=== PATIENT | female | born 1960 | race Caucasian/White ===

== ENCOUNTER 2020-08-06 11:04 | Inpatient (IN) | payer MEDICARE, MEDICAID, SELFPAY ==
[2020-08-06] VITALS (9 sets, daily range): BP systolic 110–157; BP diastolic 49–88; PULSE 70–81; RESP 18–26; TEMP 36.3–36.9; O2SAT 90–95; BMI 45.5
--- NOTE | 2020-08-06 | ECG_ITS ---
Test Reason : DYSPNEA Blood Pressure : / mmHG Vent. Rate : 070 BPM Atrial Rate : 070 BPM P-R Int : 168 ms QRS Dur : 066 ms QT Int : 358 ms P-R-T Axes : 028 007 025 degrees QTc Int : 386 ms Normal sinus rhythm Low voltage QRS Nonspecific ST and T wave abnormality Abnormal ECG When compared with ECG of 10-JAN-2019 15:16, Nonspecific T wave abnormality now evident in Anterolateral leads Referred By: Generic ED Physician Electronically Signed By:LEXA TAVAREZ MD
--- NOTE | 2020-08-06 11:29 | ED.SOB ---
HPI - SOB/Dyspnea General Chief Complaint: Dyspnea Stated Complaint: SOB, FLUID RETENTION,DONNA EYE INFECTION Time Seen by Provider: 08/06/20 11:29 History of Present Illness HPI Narrative: Patient has had eye swelling and itching for 3 months, now with shortness of breath for 1 week. Patient is not on oxygen at home. Patients helps her at home no illness in the house MD elicited complaint: shortness of breath Pertinent past history: congestive heart failure Onset (ago): week(s) Timing: constant Severity: moderate Related Data Previous Rx's Medication Instructions Recorded levothyroxine 175 mcg tablet 175 mcg PO DAILY 90 Days #90 tab 07/13/20 rosuvastatin 40 mg tablet 40 mg PO DAILY 90 Days #90 tab 07/13/20 Allergies Allergy/AdvReac Type Severity Reaction Status Date / Time lisinopril [LISINOPRIL] AdvReac Unknown ITCHY EYES Unverified 06/21/20 17:19 Review of Systems Constitutional: Constitutional: Reports no additional constitutional complaints Eyes: Comments: swelling, eye drainage and itching ENT: Denies dizziness Cardiovascular: Cardiovascular: Reports no additional cardiovascular complaints Respiratory: Respiratory: Reports as per HPI Gastrointestinal: Gastrointestinal: Reports no additional gastrointestinal complaints Genitourinary: Genitourinary: Reports no additional female genitourinary complaints Musculoskeletal: Musculoskeletal: Reports no additional musculoskeletal complaints Integumentary/Breasts: Skin/Breast: Denies rash Neurologic: Reports system reviewed and no additional complaints, except as documented, Denies dizziness and Denies Sensory deficit (Neuro) Psychiatric: Psychiatric: Denies anxiety [facility] Past Medical History Medical History (Updated 08/06/20 @ 12:43 by Taurus Gomez MD) Abnormal dexamethasone suppression test Autoimmune thyroiditis BMI 45.0-49.9, adult CHF (congestive heart failure) Diabetes mellitus with hyperglycemia Dyslipidemia, goal LDL below 100 Essential hypertension Kidney disease Morbid obesity due to excess calories Other specified hypothyroidism Syncope Type 2 diabetes mellitus with diabetic nephropathy Surgical History (Updated 07/17/20 @ 08:06 by LUIS Brown) History of removal of calculus of renal pelvis through percutaneous nephrostomy Family History Family History (Updated 07/30/20 @ 15:19 by Rosario Soto LPN) Family/Other Diabetes Social History Social History (Updated 07/30/20 @ 15:20 by Rosario Soto LPN) Smoking Status: Never smoker Advance Directives: No Advance Directives Information Provided: Yes Physical Exam Vital Signs: Vital Signs: Vital Signs Temp Pulse Resp BP Pulse Ox 08/06/20 12:04 145/61 H 08/06/20 11:55 70 134/71 08/06/20 11:14 98.1 F 72 26 H 157/49 H 90 L Body Mass Index 45.5 Const: Other: morbidly obese short of breath Nutritional Appearance: obese Orientation/consciousness: oriented to person and patient oriented x3 Limitations: no limitations HENMT: Head: Yes normal to inspection Ears: external ears normal General nose exam: Normal external nose present Mouth: Normal oral and palatal mucosa present and oropharynx normal Throat: Yes posterior oropharynx normal Eyes: Other: bilateral periorbital edema with drainage Neck: Other: supple Neck: Yes normal visual inspection Chest: Chest palpation & inspection: normal inspection of the chest Resp: Other: patient working to breath distant secondary to obesity Cardio: Jugular venous distension: no JVD Rate: regular rate Rhythm: regular rhythm Heart sounds: S1 normal heart sound present and S2 normal heart sound present GI: Inspection: Yes normal to inspection Palpation (GI): Soft to palpation, nontender and No hepatosplenomegaly present Auscultation: normal bowel sounds : General: Yes no CVA tenderness Back/Spine/Pelvis: Back: no CVA tenderness Skin: General skin exam: no rashes or lesions noted Neuro: General: oriented to person and patient oriented x3 Cranial nerves: Yes CN's II-XII intact bilaterally Motor exam (neuro): 5/5 motor strength present throughout Sensory Exam: No Sensory deficit (Neuro) Extrem: Other: patient with anasarca up abdomen and both legs 3+ Psych: Appearance: grossly normal Course Course Course Narrative: discussed with Gale Orellana MDM - SOB/Dyspnea MDM Narrative Medical decision making narrative: patient with anasarca and allergic conjunctivitis will admit Lab Data Result diagrams: 08/06/20 11:49 08/06/20 11:49 Labs: Lab Results 08/06/20 08/06/20 08/06/20 Range/Units 11:49 11:49 11:49 WBC 8.5 (4.8-10.8) X10*3/uL RBC 4.52 (4.20-5.50) X10*6/uL Hgb 10.6 L (12.0-16.0) g/dl Hct 36.0 L (37-47) % MCV 79.6 L (80-98) fL MCH 23.5 L (27.0-33.0) pg MCHC 29.4 L (31.0-35.0) g/dl RDW 15.9 (11.0-16.0) % Plt Count 280 (160-400) X10*3/uL MPV 10.4 (9.4-12.3) fL Immature Gran % (Auto) 0.2 (0.0-0.4) % Neut % (Auto) 77.9 H (45-73) % Lymph % (Auto) 13.8 L (20-40) % [place] % (Auto) 6.1 (2-11) % Eos % (Auto) 0.9 (0-4) % Baso % (Auto) 1.1 (0-2) % Lymph # (Auto) 1.2 (1.2-4.9) X10*3/uL [place] # (Auto) 0.5 (0.1-1.2) X10*3/uL Eos # (Auto) 0.1 (0.0-0.4) X10*3/uL Baso # (Auto) 0.1 (0.0-0.2) X10*3/uL Abs Immat Gran (auto) 0.02 (0.00-0.03) X10*3/uL Absolute Neuts (auto) 6.6 (2.0-8.3) X10*3/uL Absolute Nucleated RBC 0.000 (0.0-0.012) X10*3/uL Nucleated RBC % (auto) 0.0 (0.0-0.2) /100WBC Sodium 144 (135-145) mmol/L Potassium 4.2 (3.3-5.1) mmol/l Chloride 109 H (96-108) mmol/L Carbon Dioxide 22 (22-29) mmol/L Anion Gap 17 (12-20) BUN 27 H (9-16) mg/dL Creatinine 1.44 H (0.5-1.4) mg/dL Estim Creat Clear Calc 49.3 Estimated GFR 37 Random Glucose 114 (60-115) mg/dL Calcium 8.4 (8.4-10.2) mg/dL Troponin I High Sens 11.9 (<3.5-17.0) ng/L B-Natriuretic Peptide 518 H (<100) pg/mL Critical Care Time Critical Care Time Critical Care Time: Yes Total Critical Care Time: 35 Attestation: I spent 35 minutes of critical care, with interventions, assessments, speaking to patient, consultants, and family. Discharge Plan Discharge Clinical Impression: Anasarca Congestive heart failure Qualifiers: Heart failure type: biventricular Qualified Code(s): I50.82 - Biventricular heart failure Patient Disposition: Admitted As Inpatient
--- NOTE | 2020-08-06 11:34 | XR_ITS ---
EXAMINATION: XR CHEST CLINICAL INFORMATION: Shortness of breath. COMPARISON: Chest 01/31/2018. TECHNIQUE: Frontal view of the chest was obtained. FINDINGS: The lungs are hypoexpanded with cardiomegaly and increased pulmonary vascularity suggestive of CHF. There is moderate opacity in the right lung base likely effusion. Underlying infiltrate or atelectasis is not excluded. No gross bony abnormality seen. XR/XR chest 1V IMPRESSION: Cardiomegaly with mild CHF. Moderate opacity right lung base suggestive of effusion with underlying infiltrate/atelectasis is not excluded. These are new findings since 01/31/2018.
[2020-08-06 11:54] LABS: Basophils Absolute Auto 0.1 X10*3/uL (0.0-0.2); Basophils Percent Auto 1.1 % (0-2); Eosinophils Absolute Auto 0.1 X10*3/uL (0.0-0.4); Eosinophils Percent Auto 0.9 % (0-4); Hemoglobin 10.6 g/dl (12.0-16.0); Imm Gran Abs Auto 0.02 X10*3/uL (0.00-0.03); Imm Gran Pct Auto 0.2 % (0.0-0.4); Lymphocytes Absolute Auto 1.2 X10*3/uL (1.2-4.9); Lymphocytes Percent Auto 13.8 % (20-40); Mean Corpuscular HGB Conc 29.4 g/dl (31.0-35.0); Mean Corpuscular Hemoglobin 23.5 pg (27.0-33.0); Mean Corpuscular Volume 79.6 fL (80-98); Mean Platelet Volume 10.4 fL (9.4-12.3); Monocytes Absolute Auto 0.5 X10*3/uL (0.1-1.2); Monocytes Percent Auto 6.1 % (2-11); Neutrophils Absolute Auto 6.6 X10*3/uL (2.0-8.3); Neutrophils Percent Auto 77.9 % (45-73); Platelet Count 280 X10*3/uL (160-400); Red Blood Count 4.52 X10*6/uL (4.20-5.50); Red Cell Distribution Width 15.9 % (11.0-16.0); White Blood Count 8.5 X10*3/uL (4.8-10.8)
[2020-08-06 11:55] LABS: MANUAL DIFF FLAG NO
[2020-08-06] MEDS: Furosemide 40 MG/4 ML VIAL IVPUSH ×2 (11:55→16:00)
[2020-08-06] MEDS: Nitroglycerin 2 % Oint 1 GM Packet 1 INCH TRANSDERMA (11:55)
[2020-08-06 12:22] LABS: Anion Gap 17 (12-20); Blood Urea Nitrogen 27 mg/dL (9-16); Calcium 8.4 mg/dL (8.4-10.2); Carbon Dioxide 22 mmol/L (22-29); Chloride 109 mmol/L (96-108); Creatinine Clr Calc Pharmacy 49.3; Estimated Glomerular Filt Rate 37; Glucose Random 114 mg/dL (60-115); Potassium 4.2 mmol/l (3.3-5.1); Sodium 144 mmol/L (135-145)
[2020-08-06 12:30] LABS: B Type Natriuretic Peptide 518 pg/mL (<100); Troponin-I High Sensitivity 11.9 ng/L (<3.5-17.0)
--- NOTE | 2020-08-06 12:41 | PC.NURSE ---
Pt triaged c/o SOB over the past few days, no O2 use at home, no reported resp conditions. Abdomen firm & distended, retaining fluid. Reported self compliance with medications at home. Pt also presents with bilateral swelling of her eyes x 1 month, pruritic, draining, can only open her L eye. SPO2 WNL on 2 L. medicated as per emr. NSR on electronic device monitor.
[2020-08-06] MEDS: Erythromycin Base 0.5% Oph Oin 1 GM TUBE 1 CM EYE-BOTH (12:48)
--- NOTE | 2020-08-06 13:16 | P.HPIM_ITS ---
History of Present Illness Date of Service: 08/06/20 Chief Complaint: Shortness of Breath 60 year female with class 3 obesity BMI 45, Diabetes, HTN, HLD, hypothyroidism, heart failure no prior echo report. She presents today ED with shortness of breath of 1 week during and is progressively worsening. Her symptoms are more prominent with exertion. She has PND and orthopnea. She had noted increased weight and leg edema concurent with her Lasix been cut down from 20 to 10. She has no fever, no cough, and no travel and no covid exposure--Terry virus is pending. Of note has some swelling and redness around eyes for weeks and has been treated for allergies Review of Systems Constitutional: Comments: No fever, no chills Eyes: Comments: swelling around eyes consistent with allergic shiners Cardiovascular: Cardiovascular: Reports leg edema and Reports orthopnea Allergic/Immunologic: Comments: allergic reaction under both eyes.. All other other system reviewed and are negative. REPLACED BY [facility] Medical History (Updated 08/06/20 @ 12:43 by Taurus Gomez MD) Abnormal dexamethasone suppression test Autoimmune thyroiditis BMI 45.0-49.9, adult CHF (congestive heart failure) Diabetes mellitus with hyperglycemia Dyslipidemia, goal LDL below 100 Essential hypertension Kidney disease Morbid obesity due to excess calories Other specified hypothyroidism Syncope Type 2 diabetes mellitus with diabetic nephropathy Functional capacity: independent ambulation Family History (Updated 07/30/20 @ 15:19 by Rosario Soto LPN) Family/Other Diabetes Family history: reviewed and not pertinent Surgical History History of removal of calculus of renal pelvis through percutaneous nephrostomy Social History (Updated 08/06/20 @ 13:18 by Femi Mireles MD) Household Members: Spouse Smoking Status: Never smoker Advance Directives: No Advance Directives Information Provided: Yes Meds Allergies Allergy/AdvReac Type Severity Reaction Status Date / Time lisinopril [LISINOPRIL] AdvReac Unknown ITCHY EYES Unverified 06/21/20 17:19 Home Medications Medication Instructions Recorded Confirmed Type amlodipine 10 mg PO DAILY@1200 08/06/20 08/06/20 History aspirin 81 mg PO DAILY@1200 08/06/20 08/06/20 History cholecalciferol (vitamin D3) 25 mcg PO DAILY@1200 08/06/20 08/06/20 History diphenhydramine HCl [Banophen] 25 mg PO Q4-6H PRN 08/06/20 08/06/20 History dulaglutide [Trulicity] 1.5 mg SUBCUT QWEEK 08/06/20 08/06/20 History escitalopram oxalate 10 mg PO DAILY@1200 08/06/20 08/06/20 History furosemide 20 mg PO DAILY@1200 08/06/20 08/06/20 History hydroxyzine HCl 10 mg PO DAILY PRN 08/06/20 08/06/20 History insulin glargine U-300 conc 45 unit SUBCUT DAILY 08/06/20 08/06/20 History [Toujeo Max U-300 SoloStar] insulin lispro [Humalog KwikPen 18 unit SUBCUT TID 08/06/20 08/06/20 History Insulin] ketotifen fumarate 1 drp OPHTHALMIC (EYE) BID 08/06/20 08/06/20 History levothyroxine 1 tab PO QAM 08/06/20 08/06/20 History loratadine 10 mg PO DAILY PRN 08/06/20 08/06/20 History metoprolol succinate 200 mg PO BEDTIME 08/06/20 08/06/20 History rosuvastatin 40 mg PO BEDTIME 08/06/20 08/06/20 History Physical Exam Vital Signs and Narrative: Vital Signs: Last Vital Signs Temp 98.1 F 08/06/20 11:14 Pulse 70 08/06/20 11:55 Resp 26 H 08/06/20 11:14 BP 145/61 H 08/06/20 12:04 Pulse Ox 90 L 08/06/20 11:14 Body Mass Index 45.5 Constitutional Awake and Alert, No apparent distress Neck Supple, No lymphadenopathy HEENT: noted swelling around eyes with some erythma, eye movement intact, no pa9in Cardiovascular RRR, No M/R/G, S1 S2, No S3 S4, 1+ pedal edema Respiratory decrease breath sound, no acessory muscle use Gastrointestinal Non tender, Non-distended Skin No rash Neurological Alert & oriented x3 Psychological Appropriate affect Results Labs Labs: Laboratory Tests 08/06/20 11:49 WBC 8.5 Hgb 10.6 L Hct 36.0 L Plt Count 280 Laboratory Tests 08/06/20 11:49 Sodium 144 Chloride 109 H BUN 27 H Creatinine 1.44 H Laboratory Tests 08/06/20 08/06/20 11:49 13:20 Troponin I High Sens 11.9 B-Natriuretic Peptide 518 H Coronavirus (PCR) Pending CXR: IMPRESSION: Cardiomegaly with mild CHF. Moderate opacity right lung base suggestive of effusion with underlying infiltrate/atelectasis is not excluded. These are new findings since 01/31/2018. Assessment and Plan (1) Congestive heart failure: Qualifiers: Heart failure type: biventricular Qualified Code(s): I50.82 - Biventricular heart failure Status: Acute (2) Anasarca: Status: Acute (3) Diabetes mellitus with hyperglycemia: Status: Acute (4) Dyslipidemia, goal LDL below 100: Status: Acute (5) Essential hypertension: Status: Acute (6) Type 2 diabetes mellitus with diabetic nephropathy: Status: Acute (7) Autoimmune thyroiditis: Status: Acute (8) Morbid obesity due to excess calories: Status: Acute 60 year female with class 3 obesity BMI 45, Diabetes, HTN, HLD, hypothyroidism, heart failure no prior echo report. She presents today ED with shortness of breath of 1 week during and is progressively worsening. Her symptoms are more prominent with exertion. She has PND and orthopnea. 1. Heart Failure--Probably acute on chronic diastolic heart failure -IV Lasix -Get an echocardiogram -Monitor I/O, daily weight, avoid salt -library monitor 2. Diabetes--Continue Long acting insulin and add SSI, Diabetuc duet. Trulicity weekly not on formulary 3.HTN--will continue Norvasc, and Metoprolol and adjust as needed 4. HLD--contine Crestor 5. Hypothyroidism--Levothyroxine, check TSH 6. Depression --Celexa 7. Class 3 severe obesity--Weight loss encourage as this will complicate underlying health issues 8. DVT prophylaxis, Lovenox 9. Allergies with marked allergy shiners--Antihistamines, eye drop CODE discussed: Full code
--- NOTE | 2020-08-06 13:38 | PC.NURSE ---
pt reporting improvement in work of breathing after Lasix. Eyes wiped with warm washcloth a few times for comfort. Called up to [facility] for report. Expecting call back. Liver panel drawn.
--- NOTE | 2020-08-06 13:50 | PC.NURSE ---
GAVE REPORT TO AYANNA ON [facility]. PT TO TRANSFER ONCE COVID RESULT IS IN. THIS RN NOTIFIED OF 2 WITNESSED OCCASIONS OF BRADYCARDIA DOWN TO 30S, 40S FOR SEVERAL SECONDS. EKG ENTERED. AWARE.
[2020-08-06 14:27] LABS: SARS COV2 PCR INHOUSE NEGATIVE (Negative)
[2020-08-06 14:39] LABS: Alanine Aminotransferase 42 U/L (0-31); Albumin Level 3.8 g/dL (3.5-5.0); Alkaline Phosphatase 42 U/L (39-117); Aspartate Amino Transferase 93 U/L (5-31); Bilirubin Direct 0.3 mg/dL (0.0-0.5); Bilirubin Total 0.5 mg/dL (0.0-1.0); Total Protein 6.7 g/dL (6.5-8.0)
[2020-08-06] MEDS: Enoxaparin Sodium 30 MG/0.3 ML SYRINGE SUBCUT (16:00)
[2020-08-06] MEDS: 0.9 % Sodium Chloride Flush 3 ML SYRINGE IVFLUSH ×3 (16:00→21:44)
[2020-08-06] MEDS: Flu Vacc QS2020-21(6mos up)/PF 0.5 ML SYRINGE IM (17:31)
[2020-08-06 18:13] LABS: Glucose, Whole Blood 124 mg/dL (60-115)
[2020-08-06] MEDS: Metoprolol Succinate ER 100 MG TAB.ER.24H 200 MG PO (21:36)
[2020-08-06] MEDS: Ketotifen Fumarate 0.025% Oph 5 ML DRPBTL 1 DROP EYE-BOTH (21:37)
[2020-08-06] MEDS: hydrOXYzine HCL 10 MG TABLET PO (23:34)
[2020-08-07] VITALS (11 sets, daily range): BP systolic 112–149; BP diastolic 58–87; PULSE 66–75; RESP 18; TEMP 36.2–37.4; O2SAT 90–97; BMI 65.0; BMI 45.9
[2020-08-07 00:23] LABS: Glucose, Whole Blood 102 mg/dL (60-115)
[2020-08-07 04:44] LABS: MANUAL DIFF FLAG NO
[2020-08-07 04:47] LABS: Basophils Absolute Auto 0.1 X10*3/uL (0.0-0.2); Eosinophils Absolute Auto 0.2 X10*3/uL (0.0-0.4); Eosinophils Percent Auto 2.5 % (0-4); Imm Gran Abs Auto 0.02 X10*3/uL (0.00-0.03); Imm Gran Pct Auto 0.3 % (0.0-0.4); Lymphocytes Absolute Auto 1.5 X10*3/uL (1.2-4.9); Lymphocytes Percent Auto 20.8 % (20-40); Mean Corpuscular HGB Conc 29.4 g/dl (31.0-35.0); Mean Corpuscular Hemoglobin 23.2 pg (27.0-33.0); Mean Corpuscular Volume 78.9 fL (80-98); Mean Platelet Volume 10.6 fL (9.4-12.3); Monocytes Absolute Auto 0.6 X10*3/uL (0.1-1.2); Monocytes Percent Auto 8.3 % (2-11); Neutrophils Absolute Auto 4.8 X10*3/uL (2.0-8.3); Neutrophils Percent Auto 67.1 % (45-73); Platelet Count 288 X10*3/uL (160-400); Red Blood Count 4.31 X10*6/uL (4.20-5.50); Red Cell Distribution Width 15.7 % (11.0-16.0); White Blood Count 7.1 X10*3/uL (4.8-10.8)
[2020-08-07 05:11] LABS: Anion Gap 17 (12-20); Blood Urea Nitrogen 26 mg/dL (9-16); Calcium 8.3 mg/dL (8.4-10.2); Carbon Dioxide 22 mmol/L (22-29); Chloride 110 mmol/L (96-108); Creatinine Clr Calc Pharmacy 51.1; Estimated Glomerular Filt Rate 39; Glucose Random 96 mg/dL (60-115); Sodium 145 mmol/L (135-145)
[2020-08-07 05:16] LABS: B Type Natriuretic Peptide 593 pg/mL (<100)
[2020-08-07] MEDS: Levothyroxine Sodium 175 MCG TABLET PO (05:54)
[2020-08-07 06:13] LABS: Glucose, Whole Blood 104 mg/dL (60-115)
[2020-08-07] MEDS: Ketotifen Fumarate 0.025% Oph 5 ML DRPBTL 1 DROP EYE-BOTH ×2 (07:51→21:07)
[2020-08-07] MEDS: Atorvastatin Calcium 80 MG TABLET PO (07:51)
[2020-08-07] MEDS: Furosemide 20 MG TABLET PO (09:00)
--- NOTE | 2020-08-07 11:03 | MHC.CM.PN ---
CM met with patient at the bedside who reports she amb with a cane and lives with her . States she does have a CPAP at home and is compliant, no home O2. Patients also states she does have a HCP, dtr Lacie [phone], copy requested. Discussed discharge plan, home with new referral to [facility]. Referral made via [email or web address]. Fred [phone] will provide transportation home. CM will continue to follow patient for discharge needs.
--- NOTE | 2020-08-07 11:17 | HO.PM.IMPN ---
Subjective Subjective Date of Service: 08/07/20 Interval History: Seen in f/u for heart failure. Feels better. There is persistent swelling in the legs. Swelling around the eyes are beter Review of Systems Gen: no fever Resp: sob CV: no chest, + LEYVA, + leg edema GI: No n/v, no abd pain Neuro: No confusion Physical Exam Vital Signs: Vital Signs: Vital Signs Temp Pulse Resp BP Pulse Ox 08/07/20 11:10 97.8 F 66 18 112/58 L 96 08/07/20 07:22 97.4 F 72 18 121/58 L 95 08/07/20 04:27 95 08/07/20 04:17 98.6 F 70 18 130/87 90 L 08/06/20 23:29 97.3 F 71 18 155/88 H 95 08/06/20 23:09 22 H 08/06/20 21:36 72 142/81 H 08/06/20 19:37 98.4 F 75 20 126/58 L 94 08/06/20 15:53 98.4 F 77 24 H 153/67 H 93 08/06/20 14:06 71 20 131/75 95 08/06/20 12:04 145/61 H 08/06/20 11:55 70 134/71 Body Mass Index 65.0 Constitutional Awake and Alert, No apparent distress Neck Supple, No lymphadenopathy HEENT: noted swelling around eyes with some erythma, eye movement intact, no pa9in Cardiovascular RRR, No M/R/G, S1 S2, No S3 S4, 1+ pedal edema Respiratory decrease breath sound, no acessory muscle use Gastrointestinal Non tender, Non-distended Skin No rash Neurological Alert & oriented x3 Psychological Appropriate affect Objective Data Current Medications Generic Name Dose Route Start Last Admin Trade Name Freq PRN Reason Stop Dose Admin Amlodipine Besylate 10 mg 08/07/20 12:00 Amlodipine Besylate 10 Mg Tablet PO DAILY@1200 [facility] Protocol Aspirin 81 mg 08/07/20 12:00 Aspirin Enteric Coated 81 Mg Tablet. PO DAILY@1200 [facility] Atorvastatin Calcium 80 mg 08/07/20 09:00 08/07/20 07:51 Atorvastatin Calcium 80 Mg Tablet PO 80 mg DAILY [facility] Administration Diphenhydramine HCl 25 mg 08/06/20 15:56 Diphenhydramine Hcl 25 Mg Tablet PO Q4H PRN itch Enoxaparin Sodium 30 mg 08/06/20 15:00 08/06/20 16:00 Enoxaparin Sodium 30 Mg/0.3 Ml Syringe SUBCUT 30 mg Q24H [facility] Administration Escitalopram Oxalate 10 mg 08/07/20 12:00 Escitalopram Oxalate 10 Mg Tablet PO DAILY@1200 [facility] Furosemide 80 mg 08/07/20 18:00 Furosemide 100 Mg/10 Ml Vial IVPUSH BID@0900,1800 [facility] Protocol Hydroxyzine HCl 10 mg 08/06/20 15:56 08/06/20 23:34 Hydroxyzine Hcl 10 Mg Tablet PO 10 mg DAILY PRN Administration anxiety Insulin Glargine 25 unit 08/07/20 21:00 Insulin Glargine,Hum.Rec.Anlog 100 Unit/Ml 10 Ml Vial SUBCUT BEDTIME [facility] Insulin Human Lispro 0 unit 08/07/20 11:30 Insulin Lispro 100 Unit/Ml 3 Ml Vial SUBCUT 08/08/20 11:06 TIDAC [facility] Protocol Ketotifen Fumarate 1 drop 08/06/20 21:00 08/07/20 07:51 Ketotifen Fumarate 0.025% Oph 5 Ml Drpbtl EYE-BOTH 1 drop BID [facility] Administration Levothyroxine Sodium 175 mcg 08/07/20 06:30 08/07/20 05:54 Levothyroxine Sodium 175 Mcg Tablet PO 175 mcg DAILY@0630 [facility] Administration Loratadine 10 mg 08/06/20 15:56 Loratadine 10 Mg Tablet PO DAILY PRN Allergic Symptoms Metoprolol Succinate 100 mg 08/07/20 21:00 Metoprolol Succinate Er 100 Mg Tab.Er.24h PO BEDTIME [facility] Protocol Multivitamins/Minerals 1 tab 08/07/20 09:00 08/07/20 07:51 Multivitamin With Minerals Tablet PO 1 tab DAILY [facility] Administration Pharmacy Consult 1 each 08/06/20 12:38 Consult Rx Perform Med Rec MISCELLANE ONCE PRN Consult order Sodium Chloride 3 ml 08/06/20 16:00 08/06/20 21:44 0.9 % Sodium Chloride Flush 3 Ml Syringe IVFLUSH 3 ml QSHIFT [facility] Administration Vitamin D 25 mcg 08/07/20 12:00 Cholecalciferol (Vitamin D3) 25 Mcg Tablet PO DAILY@1200 [facility] Labs CBC & Chem 7: 08/07/20 04:32 08/07/20 04:32 Assessment and Plan (1) Congestive heart failure: Status: Acute (2) Anasarca: Status: Acute (3) Diabetes mellitus with hyperglycemia: Status: Acute (4) Dyslipidemia, goal LDL below 100: Status: Acute (5) Essential hypertension: Status: Acute (6) Type 2 diabetes mellitus with diabetic nephropathy: Status: Acute (7) Autoimmune thyroiditis: Status: Acute (8) Morbid obesity due to excess calories: Status: Acute Assessment and Plan: 60 year female with class 3 obesity BMI 45, Diabetes, HTN, HLD, hypothyroidism, heart failure no prior echo report. She presents today ED with shortness of breath of 1 week during and is progressively worsening. Her symptoms are more prominent with exertion. She has PND and orthopnea. 1. Heart Failure--Probably acute on chronic diastolic heart failure -IV Lasix, monitor electrolytes -Get an echocardiogram -Monitor I/O, daily weight, avoid salt -surveillance monitor 2. Diabetes--SSI, Lantus in place of Toujeo not on formulary 3.HTN--will continue Norvasc, and Metoprolol and adjust as needed 4. HLD--contine Crestor 5. Hypothyroidism--Levothyroxine 6. Depression --Celexa 7. Class 3 severe obesity--Weight loss encourage as this will complicate all underlying health issues 8. DVT prophylaxis, Lovenox 9. Allergies with marked allergy shiners--Antihistamines, eye drop--overnall better today CODE discussed: Full code
[2020-08-07 11:23] LABS: Glucose, Whole Blood 183 mg/dL (60-115)
[2020-08-07] MEDS: Insulin Lispro 100 UNIT/ML 3 ML VIAL SUBCUT ×2 (11:47→16:19)
[2020-08-07] MEDS: Furosemide 100 MG/10 ML VIAL 80 MG IVPUSH ×2 (11:47→17:50)
[2020-08-07] MEDS: Aspirin Enteric Coated 81 MG TABLET.DR PO (11:48)
[2020-08-07] MEDS: amLODIPine Besylate 10 MG TABLET PO (11:48)
[2020-08-07] MEDS: Cholecalciferol (Vitamin D3) 25 MCG TABLET PO (11:48)
[2020-08-07] MEDS: Escitalopram Oxalate 10 MG TABLET PO (11:48)
--- NOTE | 2020-08-07 11:56 | PM.CNCAR ---
History of Present Illness History of Present Illness Date of Consult: August 07, 2020 Requesting physician: Femi Mireles Consult reason: congestive heart failure Chief complaint: Heart Failure Narrative: Pleasant 60-year-old female who has a background history of hypertension, hyperlipidemia, diabetes, obesity, chronic kidney disease, obstructive sleep apnea on CPAP, moderate aortic stenosis and heart failure with preserved ejection fraction. She was seen by Kim Padron in our office in February 2020. she is presenting with progressive edema and dyspnea along with the bilateral periorbital edema. This has been progressive over weeks to months. She has significant dyspnea and orthopnea. She said she was drinking a lot of water and peeing a lot and decided to stop her diuretics. This was approximately couple of weeks ago. She now presented with significant edema and heart failure. She received IV diuretic doses. She has no chest discomfort. No other concerns right now. Review of Systems Review of Systems: Dyspnea, orthopnea Yes all other systems are reviewed and are negative ENT: Denies dizziness Neurologic: Reports system reviewed and no additional complaints, except as documented and Denies dizziness PMFSH Past Medical History Medical History (Updated 08/07/20 @ 11:59 by Agapito Anthony MD) Abnormal dexamethasone suppression test Autoimmune thyroiditis BMI 45.0-49.9, adult CHF (congestive heart failure) Diabetes mellitus with hyperglycemia Dyslipidemia, goal LDL below 100 Essential hypertension Kidney disease Morbid obesity due to excess calories Other specified hypothyroidism Syncope Type 2 diabetes mellitus with diabetic nephropathy Functional capacity: independent ambulation Family History Family History (Updated 07/30/20 @ 15:19 by Rosario Soto LPN) Family/Other Diabetes Family history: reviewed and not pertinent Surgical History Surgical History History of removal of calculus of renal pelvis through percutaneous nephrostomy Social History Social History (Updated 08/06/20 @ 13:18 by Femi Mireles MD) Household Members: Spouse Housing: Apartment Smoking Status: Former smoker service: No Current occupational status: disabled Meds Allergies Allergy/AdvReac Type Severity Reaction Status Date / Time lisinopril [LISINOPRIL] AdvReac Unknown ITCHY EYES Verified 08/07/20 09:23 Home Medications Medication Instructions Recorded Confirmed Type amlodipine 10 mg PO DAILY@1200 08/06/20 08/06/20 History aspirin 81 mg PO DAILY@1200 08/06/20 08/06/20 History cholecalciferol (vitamin D3) 25 mcg PO DAILY@1200 08/06/20 08/06/20 History diphenhydramine HCl [Banophen] 25 mg PO Q4-6H PRN 08/06/20 08/06/20 History dulaglutide [Trulicity] 1.5 mg SUBCUT QWEEK 08/06/20 08/06/20 History escitalopram oxalate 10 mg PO DAILY@1200 08/06/20 08/06/20 History furosemide 20 mg PO DAILY@1200 08/06/20 08/06/20 History hydroxyzine HCl 10 mg PO DAILY PRN 08/06/20 08/06/20 History insulin glargine U-300 conc 45 unit SUBCUT DAILY 08/06/20 08/06/20 History [Toujeo Max U-300 SoloStar] insulin lispro [Humalog KwikPen 18 unit SUBCUT TIDAC 08/06/20 08/06/20 History Insulin] ketotifen fumarate 1 drp OPHTHALMIC (EYE) BID 08/06/20 08/06/20 History levothyroxine 175 mcg PO QAM 08/06/20 08/06/20 History loratadine 10 mg PO DAILY PRN 08/06/20 08/06/20 History metoprolol succinate 200 mg PO BEDTIME 08/06/20 08/06/20 History vmlmmlnnukdv-zbfzzmfe-pjwopj 1 tab PO DAILY 08/06/20 08/06/20 History [Cerovite Senior] rosuvastatin 40 mg PO BEDTIME 08/06/20 08/06/20 History Physical Exam Vital Signs: Vital Signs: Vital Signs Temp Pulse Resp BP Pulse Ox 08/07/20 11:48 66 112/58 L 08/07/20 11:10 97.8 F 66 18 112/58 L 96 08/07/20 07:22 97.4 F 72 18 121/58 L 95 08/07/20 04:27 95 08/07/20 04:17 98.6 F 70 18 130/87 90 L 08/06/20 23:29 97.3 F 71 18 155/88 H 95 08/06/20 23:09 22 H 08/06/20 21:36 72 142/81 H 08/06/20 19:37 98.4 F 75 20 126/58 L 94 08/06/20 15:53 98.4 F 77 24 H 153/67 H 93 08/06/20 14:06 71 20 131/75 95 08/06/20 12:04 145/61 H Body Mass Index 45.9 GENERAL APPEARANCE: in acute distress, short of breath, periorbital swelling. HEENT: unremarkable. HEAD: normocephalic, atraumatic. NECK/THYROID: no carotid bruit, JVD+. SKIN: no suspicious lesions, warm and dry. HEART: no murmurs, regular rate and rhythm, distant heart sounds. LUNGS: clear to auscultation bilaterally. ABDOMEN: Distended, tense, abdominal wall edema. EXTREMITIES: no clubbing, cyanosis. One to 2+ edema peripherally. PERIPHERAL PULSES: equal. NEUROLOGIC: nonfocal, alert and oriented. PSYCH: mood/affect full range. Results Labs and Meds Result diagrams: 08/07/20 04:32 08/07/20 04:32 Lab results: Laboratory Results - last 24 hr 08/06/20 08/06/20 08/06/20 11:49 11:49 11:49 WBC 8.5 RBC 4.52 Hgb 10.6 L Hct 36.0 L MCV 79.6 L MCH 23.5 L MCHC 29.4 L RDW 15.9 Plt Count 280 MPV 10.4 Immature Gran % (Auto) 0.2 Neut % (Auto) 77.9 H Lymph % (Auto) 13.8 L [place] % (Auto) 6.1 Eos % (Auto) 0.9 Baso % (Auto) 1.1 Lymph # (Auto) 1.2 [place] # (Auto) 0.5 Eos # (Auto) 0.1 Baso # (Auto) 0.1 Abs Immat Gran (auto) 0.02 Absolute Neuts (auto) 6.6 Absolute Nucleated RBC 0.000 Nucleated RBC % (auto) 0.0 Sodium 144 Potassium 4.2 Chloride 109 H Carbon Dioxide 22 Anion Gap 17 BUN 27 H Creatinine 1.44 H Estim Creat Clear Calc 49.3 Estimated GFR 37 POC Glucose Random Glucose 114 Calcium 8.4 Total Bilirubin Direct Bilirubin AST ALT Alkaline Phosphatase Troponin I High Sens 11.9 B-Natriuretic Peptide 518 H Total Protein Albumin Coronavirus (PCR) 08/06/20 08/06/20 08/06/20 13:20 13:20 18:07 WBC RBC Hgb Hct MCV MCH MCHC RDW Plt Count MPV Immature Gran % (Auto) Neut % (Auto) Lymph % (Auto) [place] % (Auto) Eos % (Auto) Baso % (Auto) Lymph # (Auto) [place] # (Auto) Eos # (Auto) Baso # (Auto) Abs Immat Gran (auto) Absolute Neuts (auto) Absolute Nucleated RBC Nucleated RBC % (auto) Sodium Potassium Chloride Carbon Dioxide Anion Gap BUN Creatinine Estim Creat Clear Calc Estimated GFR POC Glucose 124 H Random Glucose Calcium Total Bilirubin 0.5 Direct Bilirubin 0.3 AST 93 H ALT 42 H Alkaline Phosphatase 42 Troponin I High Sens B-Natriuretic Peptide Total Protein 6.7 Albumin 3.8 Coronavirus (PCR) NEGATIVE 08/07/20 08/07/20 08/07/20 00:19 04:32 04:32 WBC 7.1 RBC 4.31 Hgb 10.0 L Hct 34.0 L MCV 78.9 L MCH 23.2 L MCHC 29.4 L RDW 15.7 Plt Count 288 MPV 10.6 Immature Gran % (Auto) 0.3 Neut % (Auto) 67.1 Lymph % (Auto) 20.8 [place] % (Auto) 8.3 Eos % (Auto) 2.5 Baso % (Auto) 1.0 Lymph # (Auto) 1.5 [place] # (Auto) 0.6 Eos # (Auto) 0.2 Baso # (Auto) 0.1 Abs Immat Gran (auto) 0.02 Absolute Neuts (auto) 4.8 Absolute Nucleated RBC 0.000 Nucleated RBC % (auto) 0.0 Sodium 145 Potassium 4.0 Chloride 110 H Carbon Dioxide 22 Anion Gap 17 BUN 26 H Creatinine 1.39 Estim Creat Clear Calc 51.1 Estimated GFR 39 POC Glucose 102 Random Glucose 96 Calcium 8.3 L Total Bilirubin Direct Bilirubin AST ALT Alkaline Phosphatase Troponin I High Sens B-Natriuretic Peptide Total Protein Albumin Coronavirus (PCR) 08/07/20 08/07/20 08/07/20 04:32 06:09 11:12 WBC RBC Hgb Hct MCV MCH MCHC RDW Plt Count MPV Immature Gran % (Auto) Neut % (Auto) Lymph % (Auto) [place] % (Auto) Eos % (Auto) Baso % (Auto) Lymph # (Auto) [place] # (Auto) Eos # (Auto) Baso # (Auto) Abs Immat Gran (auto) Absolute Neuts (auto) Absolute Nucleated RBC Nucleated RBC % (auto) Sodium Potassium Chloride Carbon Dioxide Anion Gap BUN Creatinine Estim Creat Clear Calc Estimated GFR POC Glucose 104 183 H Random Glucose Calcium Total Bilirubin Direct Bilirubin AST ALT Alkaline Phosphatase Troponin I High Sens B-Natriuretic Peptide 593 H Total Protein Albumin Coronavirus (PCR) Cardiology Testing Echo: report reviewed EKG Interpretation EKG Comments: Normal sinus rhythm, low-voltage. Assessment and Plan (1) Aortic stenosis: Status: Acute (2) Congestive heart failure: Qualifiers: Heart failure type: biventricular Qualified Code(s): I50.82 - Biventricular heart failure Status: Acute (3) Anasarca: Status: Acute (4) Essential hypertension: Status: Acute 60-year-old female with moderate aortic stenosis and background of heart failure with preserved ejection fraction was presenting with progressive dyspnea and abdominal distension. She was drinking a lot of water and said that she was having significant polyuria at which stage she decided to stop her diuretics. She is significantly volume overloaded right now. I think she should be on IV diuretics. I will give her 80 mg IV Lasix now and will put her on 80 mg IV b.i.d. Lasix. As per our records her last Lasix dose was 40 mg p.o. once a day. Depending on her response to diuresis I will adjust her dose of diuretics. Given her significant heart failure episode I would cut her Toprol XL to 100 mg from 200 mg once a day. It is appropriate to continue amlodipine for blood pressure control for now. Please monitor potassium and magnesium along with her creatinine closely with aggressive diuresis. Due to urinary incontinence she will need Shepherd catheter short term so we can measure her ins and outs accurately. We will give recommendations and will follow along with you. Thank you for allowing me to participate in the care of your patient. Please feel free to contact me if you have any questions.
[2020-08-07] MEDS: Acetaminophen 325 MG TABLET 650 MG PO (13:34)
--- NOTE | 2020-08-07 14:00 | CA_ITS ---
Transthoracic Echocardiogram Patient (Last, First, Middle): Kati Szymanski, Gender: Female Date of : 1960 Age: 60 Procedure Date: 08/07/2020 Procedure Type: Transthoracic Echocardiogram Location: [facility] – [place] Height: 157.48 cm Weight: 114.31 kg BSA: 2.11 m2 Heart Rate: bpm BP: 122 / 60 mmHg Testing Specialist: Referring MD: Femi Mireles MD Symptoms: Heart Failure Study Quality: Fair ECG Rhythm: Sinus Conclusions: - The left ventricular systolic function is hyperdynamic. The visually estimated ejection fraction is between 65-70%. - E/E prime ratio is >15, consistent with elevated filling pressures. - The left atrium is moderately dilated. - There is mild to moderate aortic valve stenosis (gradients may have been underestimated). - PASP = 44 mm Hg + Right atrial pressure. Findings Left Ventricle Normal left ventricular cavity size. There is mildly increased left ventricular wall thickness. The left ventricular systolic function is hyperdynamic. The visually estimated ejection fraction is between 65-70%. Abnormal diastolic function is noted. Spectral Doppler is indicative of a pseudonormal filling pattern. E/E prime ratio is >15, consistent with elevated filling pressures. Right Ventricle Normal right ventricular cavity size and systolic function. Atria The left atrium is moderately dilated. Aortic Valve The aortic valve was not well visualized. There is mild to moderate aortic valve stenosis. There is no aortic valve regurgitation. Mitral Valve There is severe mitral annular calcification. There is no mitral valve regurgitation. There is no mitral valve stenosis. Pulmonic Valve The pulmonic valve is likely normal. Tricuspid Valve Normal tricuspid valve structure and function. There is trace tricuspid valve regurgitation. Indeterminate right atrial pressure. PASP = 44 mm Hg + Right atrial pressure. Great Vessels All visible segments of the aorta are normal in size. The visualized portions of the pulmonary artery and branches are normal. Venous The inferior vena cava was not well visualized. Pericardium/Pleural There is no evidence of pericardial effusion. Prior Study Comparison Changes noted compared to prior study dated: 07/20/2019. LV function is hyperdynamic, Elevated filling pressures, mild to moderate (gradients may have been underestimated). Measurements 2D Linear Measurements IVSd: 1.27 0.6-0.9/0.6-1.0 cm LVIDd: 3.97 3.9-5.3/4.2-5.9 cm LVIDd Index: 1.88 2.4-3.2/2.2-3.1 cm/m2 LVIDs: 2.65 2.0-3.6 cm LVPWd: 1.27 0.7-1.1 cm Ao Root: 2.40 2.1-3.5 cm LA Diam: 4.40 2.7-3.8/3.0-4.0 cm LAIDs Index: 2.09 1.5-2.3 cm/m2 LV Mass: 221.86 67-162/88-224 g LV Mass Index: 105.15 43-95/49-115 g/m2 LVOT Diam: 2.00 3.0+(-)1.3 cm Mitral Valve MV VTI: 0.41 MV Pk Jacinto: 1.35 MV Mn Jacinto: 0.78 MV Pk Grad: 7.00 MV Mn Grad: 3.00 MV Pk E: 1.25 MV PK A: 0.99 MV Decel Time: 222.00 E/A: 1.30 E'Lateral: 8.22 E'Medial: 7.83 E/E' Med: 16.00 E/E' Lat: 15.20 PHT: 65.00 MVA PHT: 3.38 MVA Continuity: 1.98 Decel [place]: 5.62 Aortic Valve AoV Pk Jacinto: 2.62 AoV Mn Jacinto: 2.00 AoV VTI: 0.66 AoV Pk Grad: 27.00 Aov Mn Grad: 18.00 VICTOR MANUEL Cont.VTI: 1.24 LVOT LVOT Pk Jacinto: 1.02 LVOT Mn Jacinto: 0.69 LVOT VTI: 0.26 LVOT Pk Grad: 4.00 LVOT Mn Grad: 2.00 LVOT Diam: 2.00 LVOT Area: 3.14 Diastolic Function MV Pk E: 1.25 MV Pk A: 0.99 E/A: 1.30 E'Medial: 7.83 E/E' Med: 16.00 E' Laterial: 8.22 E/E' Lat: 15.20 Tricuspid Valve TR Pk Jacinto: 3.33 TR Pk Grad: 44.00 RA Press: 15.00 Great Vessels Aorta Ao Root-2D: 2.40 2.0-3.7 cm Pulmonary Valve PV Pk Jacinto: 1.24 Peak PV Grad: 6.00 Updated in Other Vendor System with Status of Final Agapito Anthony MD electronically signed on 08/08/2020 2:12:39 PM with status of Final
[2020-08-07] MEDS: Enoxaparin Sodium 30 MG/0.3 ML SYRINGE SUBCUT (14:20)
[2020-08-07] MEDS: Albuterol/Iprat 2.5/0.5MG 3 ML AMPUL.NEB 1.5 ML INHALE (14:54)
[2020-08-07 14:59] LABS: Pt Ventilation O2% 3 L
[2020-08-07 15:08] LABS: ABG PCO2 38 mmhg (32-45); PO2 ABG 76 mmhg (83-108); pH ABG 7.42 (7.35-7.45)
[2020-08-07 15:09] LABS: Blood Gas Serial # 5414; HCO3 ABG 24 mmol/l (22-26); Oxygen Saturation ABG 95.6 %
[2020-08-07] MEDS: 0.9 % Sodium Chloride Flush 3 ML SYRINGE IVFLUSH ×2 (15:32→21:07)
[2020-08-07 16:00] LABS: Glucose, Whole Blood 152 mg/dL (60-115)
[2020-08-07 21:07] LABS: Glucose, Whole Blood 164 mg/dL (60-115)
[2020-08-07] MEDS: Insulin Glargine,Hum.rec.anlog 100 UNIT/ML 10 ML VIAL 25 UNIT SUBCUT (21:07)
[2020-08-07] MEDS: Metoprolol Succinate ER 100 MG TAB.ER.24H PO (21:07)
[2020-08-08] VITALS (8 sets, daily range): BP systolic 110–151; BP diastolic 58–93; PULSE 64–97; RESP 18–20; TEMP 36.4–36.8; O2SAT 67–98; BMI 64.0
[2020-08-08] MEDS: Acetaminophen 325 MG TABLET 650 MG PO (01:00)
[2020-08-08] MEDS: Levothyroxine Sodium 175 MCG TABLET PO (05:34)
[2020-08-08 08:37] LABS: Glucose, Whole Blood 161 mg/dL (60-115)
[2020-08-08] MEDS: Furosemide 100 MG/10 ML VIAL 80 MG IVPUSH ×2 (09:38→18:29)
[2020-08-08] MEDS: Ketotifen Fumarate 0.025% Oph 5 ML DRPBTL 1 DROP EYE-BOTH ×2 (09:39→21:35)
[2020-08-08] MEDS: Insulin Lispro 100 UNIT/ML 3 ML VIAL SUBCUT ×3 (09:39→21:36)
[2020-08-08] MEDS: Atorvastatin Calcium 80 MG TABLET PO (09:39)
[2020-08-08] MEDS: 0.9 % Sodium Chloride Flush 3 ML SYRINGE IVFLUSH ×3 (09:40→21:38)
--- NOTE | 2020-08-08 09:41 | PM.PNCARD ---
Subjective Subjective Interval history: Seen in f/u for heart failure. Reports breathing more comfortable. Eyes feeling better. Still has gross leg edema. Review of Systems Comments: Awake, alert, Report she slept well, feeling better Comments: Eyes no longer swollen, do feel itchy Denies dizziness Cardiovascular: Denies chest pain, Denies chest pain at rest, Denies chest pain with activity, Denies Epigastric Pain, Denies syncope, Denies claudication, Denies lightheadedness, Denies radiating jaw, neck or arm pain, Denies palpitations, Reports dyspnea on exertion and Reports orthopnea (slept with HOB elevated, using CPAP) Respiratory: Denies chest congestion, Denies cough, Denies hemoptysis, Denies pain on inspiration and Reports dyspnea on exertion Gastrointestinal: Reports no additional gastrointestinal complaints and Denies abdominal pain Comments: Leg edema but feels they are a little softer Reports system reviewed and no additional complaints, except as documented, Denies dizziness, Denies syncope and Denies Sensory deficit (Neuro) Endocrine: Denies palpitations Physical Exam Vital Signs: Vital Signs Temp Pulse Resp BP Pulse Ox 08/08/20 08:00 97.9 F 66 20 151/72 H 95 08/08/20 03:48 98.3 F 64 18 137/93 H 90 L 08/07/20 23:25 99.3 F 66 18 131/80 96 08/07/20 21:07 75 140/67 H 08/07/20 19:14 98.1 F 68 18 149/79 H 95 08/07/20 17:49 70 139/60 08/07/20 15:11 97.2 F 68 18 136/63 97 08/07/20 11:48 66 112/58 L 08/07/20 11:10 97.8 F 66 18 112/58 L 96 Body Mass Index 64.0 Const Other: Morbidly obese General: cooperative, no acute distress, alert and awake Orientation/consciousness: patient oriented x3 HENMT Head: Yes normal to inspection and Yes other (unable to accurately assess JVD) Eyes Conjunctivae: conjunctivae normal and other (Redness around eyes, no edema) Neck Carotids: carotid upstroke abnormal Resp Effort & Inspection: normal respiratory effort (Unlabored at rest, sob with activity, orthopnea), able to speak in complete sentences and not labored Auscultation: clear to auscultation bilaterally, no rales and no wheezes Cardio Palpation: normal PMI Rate: regular rate Rhythm: regular rhythm Heart sounds: S1 normal heart sound present and S2 normal heart sound present Peripheral pulses: Peripheral pulses 2+ throughout GI Inspection: Yes normal to inspection (obese, round, nontender) Skin General skin exam: no rashes or lesions noted Neuro General: patient oriented x3 Sensory Exam: No Sensory deficit (Neuro) Extrem Other: Gross pitting edema to legs, tightness to upper thighs Results Labs and Meds Result diagrams: 08/07/20 04:32 08/07/20 04:32 Lab results: Laboratory Results - last 24 hr 08/07/20 08/07/20 08/07/20 11:12 14:51 15:55 ABG pH 7.42 ABG pCO2 38 ABG pO2 76 L ABG HCO3 24 ABG O2 Saturation 95.6 ABG Base Excess 0.0 Oxygen Given 3 L POC Glucose 183 H 152 H 08/07/20 08/08/20 21:04 08:34 ABG pH ABG pCO2 ABG pO2 ABG HCO3 ABG O2 Saturation ABG Base Excess Oxygen Given POC Glucose 164 H 161 H Progress Note: A&P Assessment and plan (1) Congestive heart failure: Status: Acute Assessment and Plan: Hx of HFpEF. Had reduced her lasix at home due to increased urine outpt and issues with incontinence. Admit with acute on chronic diastolic CHF. Being diuresed and condition slowly improving. Fluid balance neg 2700 cc since admit. She reports breathing easier, eyes no longer swollen. Still has orthopnea, pitting edema, sob with activity. Continue Lasix 80mg IV BID. Ongoing strict I+O monitoring. Continue marsh catheter as she is incontinent without it. Close monitoring of electrolyte and kidney function. Will add Imdur 30mg daily as nitrate to help with HF. Echo completed, reading is still pending. (2) Anasarca: Status: Acute (3) Essential hypertension: Status: Acute Assessment and Plan: Mild elevation at times. This am 151/72. Will be adding imdur as above (4) Morbid obesity due to excess calories: Status: Acute Fall Risk Details Current Medications: Current Medications Generic Name Dose Route Start Last Admin Trade Name Freq PRN Reason Stop Dose Admin Acetaminophen 650 mg 08/07/20 13:21 08/08/20 01:00 Acetaminophen 325 Mg Tablet PO 650 mg Q6H PRN Administration Pain, Mild (Pain Scale 1-3) Amlodipine Besylate 10 mg 08/07/20 12:00 08/07/20 11:48 Amlodipine Besylate 10 Mg Tablet PO 10 mg DAILY@1200 [facility] Administration Protocol Aspirin 81 mg 08/07/20 12:00 08/07/20 11:48 Aspirin Enteric Coated 81 Mg Tablet.Dr PO 81 mg DAILY@1200 K[facility]I Administration Atorvastatin Calcium 80 mg 08/07/20 09:00 08/08/20 09:39 Atorvastatin Calcium 80 Mg Tablet PO 80 mg DAILY K[facility]ARI Administration Diphenhydramine HCl 25 mg 08/06/20 15:56 Diphenhydramine Hcl 25 Mg Tablet PO Q4H PRN itch Enoxaparin Sodium 30 mg 08/06/20 15:00 08/07/20 14:20 Enoxaparin Sodium 30 Mg/0.3 Ml Syringe SUBCUT 30 mg Q24H K[facility]ARI Administration Escitalopram Oxalate 10 mg 08/07/20 12:00 08/07/20 11:48 Escitalopram Oxalate 10 Mg Tablet PO 10 mg DAILY@1200 K[facility]ARI Administration Furosemide 80 mg 08/07/20 18:00 08/08/20 09:38 Furosemide 100 Mg/10 Ml Vial IVPUSH 80 mg BID@0900,1800 [facility] Administration Protocol Hydroxyzine HCl 10 mg 08/06/20 15:56 08/06/20 23:34 Hydroxyzine Hcl 10 Mg Tablet PO 10 mg DAILY PRN Administration anxiety Insulin Glargine 25 unit 08/07/20 21:00 08/07/20 21:07 Insulin Glargine,Hum.Rec.Anlog 100 Unit/Ml 10 Ml Vial SUBCUT 25 unit BEDTIME K[facility]ARI Administration Insulin Human Lispro 0 unit 08/07/20 11:30 08/08/20 09:39 Insulin Lispro 100 Unit/Ml 3 Ml Vial SUBCUT 08/08/20 11:06 4 unit TIDAC [facility] Administration Protocol Ketotifen Fumarate 1 drop 08/06/20 21:00 08/08/20 09:39 Ketotifen Fumarate 0.025% Oph 5 Ml Drpbtl EYE-BOTH 1 drop BID K[facility]ARI Administration Levothyroxine Sodium 175 mcg 08/07/20 06:30 08/08/20 05:34 Levothyroxine Sodium 175 Mcg Tablet PO 175 mcg DAILY@0630 [facility] Administration Loratadine 10 mg 08/06/20 15:56 Loratadine 10 Mg Tablet PO DAILY PRN Allergic Symptoms Metoprolol Succinate 100 mg 08/07/20 21:00 08/07/20 21:07 Metoprolol Succinate Er 100 Mg Tab.Er.24h PO 100 mg BEDTIME K[facility]ARI Administration Protocol Multivitamins/Minerals 1 tab 08/07/20 09:00 08/08/20 09:39 Multivitamin With Minerals Tablet PO 1 tab DAILY K[facility]ARI Administration Pharmacy Consult 1 each 08/06/20 12:38 Consult Rx Perform Med Rec MISCELLANE ONCE PRN Consult order Sodium Chloride 3 ml 08/06/20 16:00 08/08/20 09:40 0.9 % Sodium Chloride Flush 3 Ml Syringe IVFLUSH 3 ml QSHIFT [facility] Administration Vitamin D 25 mcg 08/07/20 12:00 08/07/20 11:48 Cholecalciferol (Vitamin D3) 25 Mcg Tablet PO 25 mcg DAILY@1200 [facility] Administration Time Spent With Patient Time: 15 min, Total time spent is greater than 50% in coordination of care (as documented) at patient's floor/unit and/or counseling patient: Time with patient: 15 - 24 minutes
--- NOTE | 2020-08-08 10:27 | P.PNIM_ITS ---
Subjective Subjective Date of Service: 08/08/20 Interval History: Seen in f/u for heart failure. She feels better today, swelling is going down, especially around eyes and is diuresing well. Review of Systems Gen: no fever Resp: sob, no cough CV: no chest, + LEYVA, marked leg edema GI: No n/v, no abd pain Neuro: No confusion Physical Exam Vital Signs: Vital Signs: Vital Signs Temp Pulse Resp BP Pulse Ox 08/08/20 08:00 97.9 F 66 20 151/72 H 95 08/08/20 03:48 98.3 F 64 18 137/93 H 90 L 08/07/20 23:25 99.3 F 66 18 131/80 96 08/07/20 21:07 75 140/67 H 08/07/20 19:14 98.1 F 68 18 149/79 H 95 08/07/20 17:49 70 139/60 08/07/20 15:11 97.2 F 68 18 136/63 97 08/07/20 11:48 66 112/58 L 08/07/20 11:10 97.8 F 66 18 112/58 L 96 Body Mass Index 64.0 Constitutional Awake and Alert, No apparent distress Neck Supple, No lymphadenopathy HEENT: noted swelling around eyes with some erythma, eye movement intact, no pa9in Cardiovascular RRR, No M/R/G, S1 S2, No S3 S4, 1+ pedal edema Respiratory decrease breath sound, no acessory muscle use Gastrointestinal Non tender, Non-distended Skin No rash Neurological Alert & oriented x3 Psychological Appropriate affect Objective Data Current Medications Generic Name Dose Route Start Last Admin Trade Name Hussein PRN Reason Stop Dose Admin Acetaminophen 650 mg 08/07/20 13:21 08/08/20 01:00 Acetaminophen 325 Mg Tablet PO 650 mg Q6H PRN Administration Pain, Mild (Pain Scale 1-3) Amlodipine Besylate 10 mg 08/07/20 12:00 08/07/20 11:48 Amlodipine Besylate 10 Mg Tablet PO 10 mg DAILY@1200 [facility] Administration Protocol Aspirin 81 mg 08/07/20 12:00 08/07/20 11:48 Aspirin Enteric Coated 81 Mg Tablet. PO 81 mg DAILY@1200 [facility] Administration Atorvastatin Calcium 80 mg 08/07/20 09:00 08/08/20 09:39 Atorvastatin Calcium 80 Mg Tablet PO 80 mg DAILY [facility] Administration Diphenhydramine HCl 25 mg 08/06/20 15:56 Diphenhydramine Hcl 25 Mg Tablet PO Q4H PRN itch Enoxaparin Sodium 30 mg 08/06/20 15:00 08/07/20 14:20 Enoxaparin Sodium 30 Mg/0.3 Ml Syringe SUBCUT 30 mg Q24H [facility] Administration Escitalopram Oxalate 10 mg 08/07/20 12:00 08/07/20 11:48 Escitalopram Oxalate 10 Mg Tablet PO 10 mg DAILY@1200 [facility] Administration Furosemide 80 mg 08/07/20 18:00 08/08/20 09:38 Furosemide 100 Mg/10 Ml Vial IVPUSH 80 mg BID@0900,1800 [facility] Administration Protocol Hydroxyzine HCl 10 mg 08/06/20 15:56 08/06/20 23:34 Hydroxyzine Hcl 10 Mg Tablet PO 10 mg DAILY PRN Administration anxiety Insulin Glargine 25 unit 08/07/20 21:00 08/07/20 21:07 Insulin Glargine,Hum.Rec.Anlog 100 Unit/Ml 10 Ml Vial SUBCUT 25 unit BEDTIME [facility] Administration Insulin Human Lispro 0 unit 08/07/20 11:30 08/08/20 09:39 Insulin Lispro 100 Unit/Ml 3 Ml Vial SUBCUT 08/08/20 11:06 4 unit TIDAC [facility] Administration Protocol Isosorbide Mononitrate 30 mg 08/08/20 09:55 Isosorbide Mononitrate 30 Mg Tab.Er.24h PO DAILY [facility] Protocol Ketotifen Fumarate 1 drop 08/06/20 21:00 08/08/20 09:39 Ketotifen Fumarate 0.025% Oph 5 Ml Drpbtl EYE-BOTH 1 drop BID [facility] Administration Levothyroxine Sodium 175 mcg 08/07/20 06:30 08/08/20 05:34 Levothyroxine Sodium 175 Mcg Tablet PO 175 mcg DAILY@0630 [facility] Administration Loratadine 10 mg 08/06/20 15:56 Loratadine 10 Mg Tablet PO DAILY PRN Allergic Symptoms Metoprolol Succinate 100 mg 08/07/20 21:00 08/07/20 21:07 Metoprolol Succinate Er 100 Mg Tab.Er.24h PO 100 mg BEDTIME [facility] Administration Protocol Multivitamins/Minerals 1 tab 08/07/20 09:00 08/08/20 09:39 Multivitamin With Minerals Tablet PO 1 tab DAILY [facility] Administration Pharmacy Consult 1 each 08/06/20 12:38 Consult Rx Perform Med Rec MISCELLANE ONCE PRN Consult order Sodium Chloride 3 ml 08/06/20 16:00 08/08/20 09:40 0.9 % Sodium Chloride Flush 3 Ml Syringe IVFLUSH 3 ml QSHIFT [facility] Administration Vitamin D 25 mcg 08/07/20 12:00 08/07/20 11:48 Cholecalciferol (Vitamin D3) 25 Mcg Tablet PO 25 mcg DAILY@1200 [facility] Administration Labs CBC & Chem 7: 08/07/20 04:32 08/08/20 08:56 Assessment and Plan (1) Congestive heart failure: Status: Acute (2) Anasarca: Status: Acute (3) Diabetes mellitus with hyperglycemia: Status: Acute (4) Dyslipidemia, goal LDL below 100: Status: Acute (5) Essential hypertension: Status: Acute (6) Type 2 diabetes mellitus with diabetic nephropathy: Status: Acute (7) Autoimmune thyroiditis: Status: Acute (8) Morbid obesity due to excess calories: Status: Acute Assessment and Plan: 60 year female with class 3 obesity BMI 45, Diabetes, HTN, HLD, hypothyroidism, heart failure no prior echo report. She presents today ED with shortness of breath of 1 week during and is progressively worsening. Her symptoms are more prominent with exertion. She has PND and orthopnea. 1. Heart Failure--Probably acute on chronic diastolic heart failure -Continue IV Lasix, -Get an echocardiogram -Monitor I/O, daily weight, avoid salt, monitor electrolytes and renal function -monitoring and evaluation advisor 2. Diabetes--SSI, Lantus in place of [place] not on formulary 3.HTN--will continue Norvasc, and Metoprolol and adjust as needed 4. HLD--contine Crestor 5. Hypothyroidism--Levothyroxine 6. Depression --Celexa 7. Class 3 severe obesity--Weight loss encourage as this will complicate all underlying health issues 8. DVT prophylaxis, Lovenox CODE discussed: Full code
[2020-08-08 10:39] LABS: Anion Gap 14 (12-20); Blood Urea Nitrogen 27 mg/dL (9-16); Calcium 8.1 mg/dL (8.4-10.2); Carbon Dioxide 26 mmol/L (22-29); Chloride 107 mmol/L (96-108); Creatinine Clr Calc Pharmacy 60.9; Estimated Glomerular Filt Rate 37; Glucose Random 187 mg/dL (60-115); Potassium 3.7 mmol/l (3.3-5.1); Sodium 143 mmol/L (135-145)
--- NOTE | 2020-08-08 11:46 | MHC.CM.PN ---
DP confirmed with Patient. DC to home with [facility]. will provide transportation. Pt continues on IV Lasix today. CM will follow.
[2020-08-08] MEDS: Cholecalciferol (Vitamin D3) 25 MCG TABLET PO (12:23)
[2020-08-08] MEDS: Escitalopram Oxalate 10 MG TABLET PO (12:23)
[2020-08-08] MEDS: amLODIPine Besylate 10 MG TABLET PO (12:24)
[2020-08-08] MEDS: Isosorbide Mononitrate 30 MG TAB.ER.24H PO (12:24)
[2020-08-08] MEDS: Aspirin Enteric Coated 81 MG TABLET.DR PO (12:24)
[2020-08-08] MEDS: Enoxaparin Sodium 30 MG/0.3 ML SYRINGE SUBCUT (15:02)
[2020-08-08 16:58] LABS: Glucose, Whole Blood 186 mg/dL (60-115)
[2020-08-08 21:16] LABS: Glucose, Whole Blood 195 mg/dL (60-115)
[2020-08-08] MEDS: Metoprolol Succinate ER 100 MG TAB.ER.24H PO (21:35)
[2020-08-08] MEDS: Insulin Glargine,Hum.rec.anlog 100 UNIT/ML 10 ML VIAL 25 UNIT SUBCUT (21:36)
[2020-08-08] MEDS: Nystatin Powder 15 GM BOTTLE 1 APPL TOPICAL (21:38)
[2020-08-09] VITALS (9 sets, daily range): BP systolic 108–137; BP diastolic 48–74; PULSE 60–68; RESP 16–20; TEMP 36.3–37; O2SAT 91–100; BMI 63.3
[2020-08-09] MEDS: Acetaminophen 325 MG TABLET 650 MG PO (02:36)
[2020-08-09] MEDS: Levothyroxine Sodium 175 MCG TABLET PO (06:16)
[2020-08-09 06:43] LABS: Anion Gap 13 (12-20); Blood Urea Nitrogen 26 mg/dL (9-16); Calcium 7.8 mg/dL (8.4-10.2); Carbon Dioxide 27 mmol/L (22-29); Chloride 108 mmol/L (96-108); Estimated Glomerular Filt Rate 43; Glucose Random 164 mg/dL (60-115); Potassium 3.4 mmol/l (3.3-5.1); Sodium 145 mmol/L (135-145)
[2020-08-09 07:32] LABS: Glucose, Whole Blood 154 mg/dL (60-115)
[2020-08-09] MEDS: Insulin Lispro 100 UNIT/ML 3 ML VIAL SUBCUT ×2 (09:04→13:17)
[2020-08-09] MEDS: Furosemide 100 MG/10 ML VIAL 80 MG IVPUSH ×2 (09:04→18:02)
[2020-08-09] MEDS: Atorvastatin Calcium 80 MG TABLET PO (09:05)
[2020-08-09] MEDS: Isosorbide Mononitrate 30 MG TAB.ER.24H PO (09:05)
[2020-08-09] MEDS: Ketotifen Fumarate 0.025% Oph 5 ML DRPBTL 1 DROP EYE-BOTH ×2 (09:05→20:23)
[2020-08-09] MEDS: 0.9 % Sodium Chloride Flush 3 ML SYRINGE IVFLUSH ×3 (09:05→20:24)
[2020-08-09] MEDS: Nystatin Powder 15 GM BOTTLE 1 APPL TOPICAL ×2 (09:06→20:23)
--- NOTE | 2020-08-09 09:45 | PM.PNCARD ---
Subjective Subjective Interval history: Cardiology follow up for heart failure. She slept well, breathing getting better, moving around easier. Review of Systems Comments: Slept with CPAP, HOB elevated, breathing easier this am compared to last few days Eyes: Reports no additional eye complaints Denies dizziness Cardiovascular: Denies syncope and Denies palpitations Comments: No chest pains or pressure Respiratory: Denies chest congestion, Denies cough, Denies hemoptysis and Denies pain on inspiration Gastrointestinal: Reports no additional gastrointestinal complaints and Denies abdominal pain Musculoskeletal: Reports no additional musculoskeletal complaints Denies dizziness, Denies syncope and Denies Sensory deficit (Neuro) Endocrine: Denies palpitations Physical Exam Vital Signs: Vital Signs Temp Pulse Resp BP Pulse Ox 08/09/20 08:00 98 F 63 20 119/62 99 08/09/20 04:00 97.5 F 64 19 129/70 91 L 08/09/20 00:15 16 08/08/20 23:32 97.5 F 66 19 136/71 96 08/08/20 21:35 70 124/58 L 08/08/20 19:38 97.5 F 67 19 110/66 96 08/08/20 16:00 98.2 F 68 20 135/68 98 08/08/20 12:00 97.8 F 69 20 131/71 96 Body Mass Index 63.3 Const Other: pleasant General: cooperative, alert and awake Orientation/consciousness: patient oriented x3 HENMT Head: Yes normal to inspection Eyes Other: no longer swollen Conjunctivae: conjunctivae normal Neck Neck: Yes normal visual inspection Carotids: carotid upstroke abnormal Resp Effort & Inspection: normal respiratory effort, able to speak in complete sentences and not labored Auscultation: clear to auscultation bilaterally (dim lower lobes bilaterally), no crackles, no rales, no rhonchi and no wheezes Cardio Palpation: normal PMI Rate: regular rate Rhythm: regular rhythm Heart sounds: S1 normal heart sound present and S2 normal heart sound present Peripheral pulses: Peripheral pulses 2+ throughout GI Inspection: Yes normal to inspection Skin General skin exam: no rashes or lesions noted Neuro General: patient oriented x3 Sensory Exam: No Sensory deficit (Neuro) Extrem Other: Pitting edema to upper legs bilaterally Results Labs and Meds Result diagrams: 08/07/20 04:32 08/09/20 05:39 Lab results: Laboratory Results - last 24 hr 08/08/20 08/08/20 08/08/20 08:56 16:55 21:13 Sodium 143 Potassium 3.7 Chloride 107 Carbon Dioxide 26 Anion Gap 14 BUN 27 H Creatinine 1.45 H Estim Creat Clear Calc 60.9 Estimated GFR 37 POC Glucose 186 H 195 H Random Glucose 187 H D Calcium 8.1 L 08/09/20 08/09/20 05:39 07:28 Sodium 145 Potassium 3.4 Chloride 108 Carbon Dioxide 27 Anion Gap 13 BUN 26 H Creatinine 1.27 Estim Creat Clear Calc 69.0 Estimated GFR 43 POC Glucose 154 H Random Glucose 164 H Calcium 7.8 L Progress Note: A&P Assessment and plan (1) Congestive heart failure: Status: Acute Assessment and Plan: Hx of HFpEF. Had reduced her lasix at home due to incontinence. Increased edema, weight, sob over last few months. Now being diuresed with IV lasix. Fluid balance neg 2770 cc since admit. Edema, breathing improving. Still has pitting edema to thighs. Weight coming down. Echo shows EF 60-65%, LA mod dilated, mild to mod . Continue her reduced dose of Metoprolol. Continue to diurese with IV Lasix. Will give dose of Metolazone 2.5mg today. Ongoing strict I+O monitoring, Daily weights. Close monitoring of electrolyte and kidney function. We will follow (2) Anasarca: Status: Acute (3) Aortic stenosis: Status: Acute Assessment and Plan: Mild to mod on echo - Will be followed as outpt (4) Essential hypertension: Status: Acute (5) Morbid obesity due to excess calories: Status: Acute Fall Risk Details Current Medications: Current Medications Generic Name Dose Route Start Last Admin Trade Name Freq PRN Reason Stop Dose Admin Acetaminophen 650 mg 08/07/20 13:21 08/09/20 02:36 Acetaminophen 325 Mg Tablet PO 650 mg Q6H PRN Administration Pain, Mild (Pain Scale 1-3) Amlodipine Besylate 10 mg 08/07/20 12:00 08/08/20 12:24 Amlodipine Besylate 10 Mg Tablet PO 10 mg DAILY@1200 [facility] Administration Protocol Aspirin 81 mg 08/07/20 12:00 08/08/20 12:24 Aspirin Enteric Coated 81 Mg Tablet. PO 81 mg DAILY@1200 [facility] Administration Atorvastatin Calcium 80 mg 08/07/20 09:00 08/09/20 09:05 Atorvastatin Calcium 80 Mg Tablet PO 80 mg DAILY [facility] Administration Diphenhydramine HCl 25 mg 08/06/20 15:56 Diphenhydramine Hcl 25 Mg Tablet PO Q4H PRN itch Enoxaparin Sodium 30 mg 08/06/20 15:00 08/08/20 15:02 Enoxaparin Sodium 30 Mg/0.3 Ml Syringe SUBCUT 30 mg Q24H [facility] Administration Escitalopram Oxalate 10 mg 08/07/20 12:00 08/08/20 12:23 Escitalopram Oxalate 10 Mg Tablet PO 10 mg DAILY@1200 [facility] Administration Furosemide 80 mg 08/07/20 18:00 08/09/20 09:04 Furosemide 100 Mg/10 Ml Vial IVPUSH 80 mg BID@0900,1800 [facility] Administration Protocol Hydroxyzine HCl 10 mg 08/06/20 15:56 08/06/20 23:34 Hydroxyzine Hcl 10 Mg Tablet PO 10 mg DAILY PRN Administration anxiety Insulin Glargine 25 unit 08/07/20 21:00 08/08/20 21:36 Insulin Glargine,Hum.Rec.Anlog 100 Unit/Ml 10 Ml Vial SUBCUT 25 unit BEDTIME [facility] Administration Insulin Human Lispro 0 unit 08/08/20 16:30 08/09/20 09:04 Insulin Lispro 100 Unit/Ml 3 Ml Vial SUBCUT 08/09/20 15:28 2 unit QIDACHS [facility] Administration Protocol Isosorbide Mononitrate 30 mg 08/08/20 09:55 08/09/20 09:05 Isosorbide Mononitrate 30 Mg Tab.Er.24h PO 30 mg DAILY [facility] Administration Protocol Ketotifen Fumarate 1 drop 08/06/20 21:00 08/09/20 09:05 Ketotifen Fumarate 0.025% Oph 5 Ml Drpbtl EYE-BOTH 1 drop BID [facility] Administration Levothyroxine Sodium 175 mcg 08/07/20 06:30 08/09/20 06:16 Levothyroxine Sodium 175 Mcg Tablet PO 175 mcg DAILY@0630 [facility] Administration Loratadine 10 mg 08/06/20 15:56 Loratadine 10 Mg Tablet PO DAILY PRN Allergic Symptoms Metoprolol Succinate 100 mg 08/07/20 21:00 08/08/20 21:35 Metoprolol Succinate Er 100 Mg Tab.Er.24h PO 100 mg BEDTIME [facility] Administration Protocol Multivitamins/Minerals 1 tab 08/07/20 09:00 08/09/20 09:05 Multivitamin With Minerals Tablet PO 1 tab DAILY [facility] Administration Nystatin 1 appl 08/08/20 21:00 08/09/20 09:06 Nystatin Powder 15 Gm Bottle TOPICAL 1 appl BID [facility] Administration Protocol Pharmacy Consult 1 each 08/06/20 12:38 Consult Rx Perform Med Rec MISCELLANE ONCE PRN Consult order Sodium Chloride 3 ml 08/06/20 16:00 08/09/20 09:05 0.9 % Sodium Chloride Flush 3 Ml Syringe IVFLUSH 3 ml QSHIFT [facility] Administration Vitamin D 25 mcg 08/07/20 12:00 08/08/20 12:23 Cholecalciferol (Vitamin D3) 25 Mcg Tablet PO 25 mcg DAILY@1200 [facility] Administration Time Spent With Patient Time: Total time spent is greater than 50% in coordination of care (as documented) at patient's floor/unit and/or counseling patient: Time with patient: less than 15 minutes
[2020-08-09] MEDS: metOLazone 2.5 MG TABLET PO (11:08)
[2020-08-09 11:24] LABS: Glucose, Whole Blood 171 mg/dL (60-115)
--- NOTE | 2020-08-09 11:27 | HO.PM.IMPN ---
Subjective Subjective Date of Service: 08/09/20 Interval History: Seen in f/u for heart failure. She feels better today, swelling is still going down, and she feels overall better Review of Systems Gen:no fever, CV: LEYVA, leg edema Physical Exam Vital Signs: Vital Signs: Vital Signs Temp Pulse Resp BP Pulse Ox 08/09/20 08:00 98 F 63 20 119/62 99 08/09/20 04:00 97.5 F 64 19 129/70 91 L 08/09/20 00:15 16 08/08/20 23:32 97.5 F 66 19 136/71 96 08/08/20 21:35 70 124/58 L 08/08/20 19:38 97.5 F 67 19 110/66 96 08/08/20 16:00 98.2 F 68 20 135/68 98 08/08/20 12:00 97.8 F 69 20 131/71 96 Body Mass Index 63.3 Constitutional Awake and Alert, No apparent distress Neck Supple, No lymphadenopathy HEENT: noted swelling around eyes with some erythma, eye movement intact, no pa9in Cardiovascular RRR, No M/R/G, S1 S2, No S3 S4, 3+ pedal edema Respiratory decrease breath sound, no acessory muscle use Gastrointestinal Non tender, Non-distended Skin No rash Neurological Alert & oriented x3 Psychological Appropriate affect Objective Data Current Medications Generic Name Dose Route Start Last Admin Trade Name Freq PRN Reason Stop Dose Admin Acetaminophen 650 mg 08/07/20 13:21 08/09/20 02:36 Acetaminophen 325 Mg Tablet PO 650 mg Q6H PRN Administration Pain, Mild (Pain Scale 1-3) Amlodipine Besylate 10 mg 08/07/20 12:00 08/08/20 12:24 Amlodipine Besylate 10 Mg Tablet PO 10 mg DAILY@1200 [facility] Administration Protocol Aspirin 81 mg 08/07/20 12:00 08/08/20 12:24 Aspirin Enteric Coated 81 Mg Tablet. PO 81 mg DAILY@1200 [facility] Administration Atorvastatin Calcium 80 mg 08/07/20 09:00 08/09/20 09:05 Atorvastatin Calcium 80 Mg Tablet PO 80 mg DAILY [facility] Administration Diphenhydramine HCl 25 mg 08/06/20 15:56 Diphenhydramine Hcl 25 Mg Tablet PO Q4H PRN itch Enoxaparin Sodium 30 mg 08/06/20 15:00 08/08/20 15:02 Enoxaparin Sodium 30 Mg/0.3 Ml Syringe SUBCUT 30 mg Q24H [facility] Administration Escitalopram Oxalate 10 mg 08/07/20 12:00 08/08/20 12:23 Escitalopram Oxalate 10 Mg Tablet PO 10 mg DAILY@1200 [facility] Administration Furosemide 80 mg 08/07/20 18:00 08/09/20 09:04 Furosemide 100 Mg/10 Ml Vial IVPUSH 80 mg BID@0900,1800 [facility] Administration Protocol Hydroxyzine HCl 10 mg 08/06/20 15:56 08/06/20 23:34 Hydroxyzine Hcl 10 Mg Tablet PO 10 mg DAILY PRN Administration anxiety Insulin Glargine 25 unit 08/07/20 21:00 08/08/20 21:36 Insulin Glargine,Hum.Rec.Anlog 100 Unit/Ml 10 Ml Vial SUBCUT 25 unit BEDTIME [facility] Administration Insulin Human Lispro 0 unit 08/08/20 16:30 08/09/20 09:04 Insulin Lispro 100 Unit/Ml 3 Ml Vial SUBCUT 08/09/20 15:28 2 unit QIDACHS [facility] Administration Protocol Isosorbide Mononitrate 30 mg 08/08/20 09:55 08/09/20 09:05 Isosorbide Mononitrate 30 Mg Tab.Er.24h PO 30 mg DAILY [facility] Administration Protocol Ketotifen Fumarate 1 drop 08/06/20 21:00 08/09/20 09:05 Ketotifen Fumarate 0.025% Oph 5 Ml Drpbtl EYE-BOTH 1 drop BID [facility] Administration Levothyroxine Sodium 175 mcg 08/07/20 06:30 08/09/20 06:16 Levothyroxine Sodium 175 Mcg Tablet PO 175 mcg DAILY@0630 [facility] Administration Loratadine 10 mg 08/06/20 15:56 Loratadine 10 Mg Tablet PO DAILY PRN Allergic Symptoms Metoprolol Succinate 100 mg 08/07/20 21:00 08/08/20 21:35 Metoprolol Succinate Er 100 Mg Tab.Er.24h PO 100 mg BEDTIME [facility] Administration Protocol Multivitamins/Minerals 1 tab 08/07/20 09:00 08/09/20 09:05 Multivitamin With Minerals Tablet PO 1 tab DAILY [facility] Administration Nystatin 1 appl 08/08/20 21:00 11/05/20 09:06 Nystatin Powder 15 Gm Bottle TOPICAL 1 appl BID [facility] Administration Protocol Pharmacy Consult 1 each 08/06/20 12:38 Consult Rx Perform Med Rec MISCELLANE ONCE PRN Consult order Sodium Chloride 3 ml 08/06/20 16:00 08/09/20 09:05 0.9 % Sodium Chloride Flush 3 Ml Syringe IVFLUSH 3 ml QSHIFT [facility] Administration Vitamin D 25 mcg 08/07/20 12:00 08/08/20 12:23 Cholecalciferol (Vitamin D3) 25 Mcg Tablet PO 25 mcg DAILY@1200 [facility] Administration Labs CBC & Chem 7: 08/07/20 04:32 08/09/20 05:39 Assessment and Plan (1) Congestive heart failure: Status: Acute (2) Anasarca: Status: Acute (3) Diabetes mellitus with hyperglycemia: Status: Acute (4) Dyslipidemia, goal LDL below 100: Status: Acute (5) Essential hypertension: Status: Acute (6) Type 2 diabetes mellitus with diabetic nephropathy: Status: Acute (7) Autoimmune thyroiditis: Status: Acute (8) Morbid obesity due to excess calories: Status: Acute Assessment and Plan: 60 year female with class 3 obesity BMI 45, Diabetes, HTN, HLD, hypothyroidism, heart failure no prior echo report. She presents today ED with shortness of breath of 1 week during and is progressively worsening. Her symptoms are more prominent with exertion. She has PND and orthopnea. 1. Heart Failure--Probably acute on chronic diastolic heart failure -Continue IV Lasix, Meolazone 2.5 today - echocardiogram 08/08 EF 65-70% -Monitor I/O, daily weight, avoid salt, monitor electrolytes and renal function -panel monitor -BNP tomorrow 2. Diabetes--SSI, Lantus in place of [place] not on formulary, increase Lantus to 30 3.HTN--will continue Norvasc, and Metoprolol and adjust as needed 4. HLD--contine Crestor 5. Hypothyroidism--Levothyroxine 6. Depression --Celexa 7. Class 3 severe obesity--Weight loss encourage as this will complicate all underlying health issues 8. DVT prophylaxis, Lovenox CODE discussed: Full code
[2020-08-09] MEDS: Cholecalciferol (Vitamin D3) 25 MCG TABLET PO (13:18)
[2020-08-09] MEDS: Escitalopram Oxalate 10 MG TABLET PO (13:18)
[2020-08-09] MEDS: amLODIPine Besylate 10 MG TABLET PO (13:18)
[2020-08-09] MEDS: Aspirin Enteric Coated 81 MG TABLET.DR PO (13:18)
[2020-08-09] MEDS: Enoxaparin Sodium 30 MG/0.3 ML SYRINGE SUBCUT (14:51)
[2020-08-09 16:06] LABS: Glucose, Whole Blood 202 mg/dL (60-115)
[2020-08-09 20:22] LABS: Glucose, Whole Blood 239 mg/dL (60-115)
[2020-08-09] MEDS: Metoprolol Succinate ER 100 MG TAB.ER.24H PO (20:23)
[2020-08-09] MEDS: Insulin Glargine,Hum.rec.anlog 100 UNIT/ML 10 ML VIAL 30 UNIT SUBCUT (20:25)
[2020-08-10] VITALS (7 sets, daily range): BP systolic 110–152; BP diastolic 44–76; PULSE 54–73; RESP 16–20; TEMP 36.1–37.2; O2SAT 92–99; BMI 61.4
[2020-08-10] MEDS: Levothyroxine Sodium 175 MCG TABLET PO (05:48)
[2020-08-10 06:12] LABS: Anion Gap 15 (12-20); Blood Urea Nitrogen 26 mg/dL (9-16); Calcium 7.8 mg/dL (8.4-10.2); Carbon Dioxide 28 mmol/L (22-29); Chloride 102 mmol/L (96-108); Creatinine Clr Calc Pharmacy 70.4; Estimated Glomerular Filt Rate 45; Glucose Random 224 mg/dL (60-115); Potassium 3.4 mmol/l (3.3-5.1); Sodium 142 mmol/L (135-145)
[2020-08-10 06:56] LABS: B Type Natriuretic Peptide 246 pg/mL (<100)
[2020-08-10 07:34] LABS: Glucose, Whole Blood 204 mg/dL (60-115)
[2020-08-10] MEDS: Isosorbide Mononitrate 30 MG TAB.ER.24H PO (08:41)
[2020-08-10] MEDS: Ketotifen Fumarate 0.025% Oph 5 ML DRPBTL 1 DROP EYE-BOTH ×2 (08:41→22:15)
[2020-08-10] MEDS: Atorvastatin Calcium 80 MG TABLET PO (08:41)
[2020-08-10] MEDS: Nystatin Powder 15 GM BOTTLE 1 APPL TOPICAL ×2 (08:42→22:15)
[2020-08-10] MEDS: Furosemide 100 MG/10 ML VIAL 80 MG IVPUSH ×2 (08:42→17:56)
[2020-08-10] MEDS: 0.9 % Sodium Chloride Flush 3 ML SYRINGE IVFLUSH ×3 (08:42→22:16)
--- NOTE | 2020-08-10 09:23 | P.PNCA_ITS ---
Subjective Subjective Interval history: Cardiology follow up for HF. Reports feeling better each day. Able to walk short distance in room with less sob than prior days. Still has significant leg edema. Review of Systems Constitutional: Reports as per HPI Eyes: Reports no additional eye complaints Comments: No longer swollen Reports dizziness Cardiovascular: Reports syncope and Denies palpitations Comments: No chest pains, pressure, presyncope, dizziness Respiratory: Denies chest congestion, Denies cough, Denies hemoptysis and Denies pain on inspiration Comments: unlabored at rest, occassional cough. sleeping with HOB elevated which is not new for her, sob with activity which is improving some Gastrointestinal: Reports no additional gastrointestinal complaints and Denies abdominal pain Musculoskeletal: Reports no additional musculoskeletal complaints Reports system reviewed and no additional complaints, except as documented, Reports dizziness and Reports syncope Endocrine: Denies palpitations Physical Exam Vital Signs: Last Vital Signs Temp 97.5 F 08/10/20 07:12 Pulse 67 08/10/20 07:12 Resp 20 08/10/20 07:12 BP 113/56 L 08/10/20 07:12 Pulse Ox 93 08/10/20 07:12 Body Mass Index 61.4 Const Other: Morbidly obese General: cooperative, no acute distress, alert and awake HENMT Other: no longer with swelling of eyes Head: Yes normal to inspection Neck Neck: Yes normal visual inspection and Yes JVD (sitting upright, unable to accurately assess for JVD) Carotids: carotid upstroke abnormal Resp Effort & Inspection: normal respiratory effort, able to speak in complete sentences, not labored and other (Lungs diminished, possible fine rales right lower lobe, no cough) Auscultation: clear to auscultation bilaterally, no crackles, no rhonchi and no wheezes Cardio Palpation: normal PMI Rate: regular rate Rhythm: regular rhythm Heart sounds: S1 normal heart sound present (distant heart tones, unable to accurately assess for murmur) and S2 normal heart sound present GI Inspection: Yes normal to inspection (obese, rounded) Skin General skin exam: no rashes or lesions noted and other (pitting edema of legs, up to thighs, slight improvement) Results Labs and Meds Result diagrams: 08/07/20 04:32 08/10/20 04:50 Lab results: Laboratory Results - last 24 hr 08/09/20 08/09/20 08/09/20 11:20 16:03 20:16 Sodium Potassium Chloride Carbon Dioxide Anion Gap BUN Creatinine Estim Creat Clear Calc Estimated GFR POC Glucose 171 H 202 H 239 H Random Glucose Calcium B-Natriuretic Peptide 08/10/20 08/10/20 08/10/20 04:50 04:50 07:31 Sodium 142 Potassium 3.4 Chloride 102 Carbon Dioxide 28 Anion Gap 15 BUN 26 H Creatinine 1.22 Estim Creat Clear Calc 70.4 Estimated GFR 45 POC Glucose 204 H Random Glucose 224 H D Calcium 7.8 L B-Natriuretic Peptide 246 H Progress Note: A&P Assessment and plan (1) Congestive heart failure: Problem details: Acute on chronic diastolic Status: Acute Assessment and Plan: Continues to diurese well. Breathing improving. Sat 93% on 2 liters this am. Uses CPAP during the night. Still has significant edema of legs. Weight down, ? 15 lb since admit. Fluid balance neg 7500cc. Creatinine still coming down, 1.22 today, BUN stable at 26. BNP 246 which is down from 593. Echo shows EF 65-70%, mild to mod . Continue to diurese with IV Lasix 80mg bid. Continue Imdur. Continue Metoprolol ( which is half her normal dose). Continue marsh as she is incontinent and need acurrate I+Os. Strict I+O monitoring. Close monitoring of electrolyte and kidney function. Daily weights. (2) Aortic stenosis: Status: Acute Assessment and Plan: Mild to moderate on echo. Will be followed as outpt (3) Morbid obesity due to excess calories: Status: Acute (4) Anasarca: Status: Acute (5) Essential hypertension: Problem details: Seems well controlled. Continue Amlodipine, Metoprolol, Imdur Status: Acute Fall Risk Details Current Medications: Current Medications Generic Name Dose Route Start Last Admin Trade Name Freq PRN Reason Stop Dose Admin Acetaminophen 650 mg 08/07/20 13:21 08/09/20 02:36 Acetaminophen 325 Mg Tablet PO 650 mg Q6H PRN Administration Pain, Mild (Pain Scale 1-3) Amlodipine Besylate 10 mg 08/07/20 12:00 08/09/20 13:18 Amlodipine Besylate 10 Mg Tablet PO 10 mg DAILY@1200 [facility] Administration Protocol Aspirin 81 mg 08/07/20 12:00 08/09/20 13:18 Aspirin Enteric Coated 81 Mg Tablet.Dr PO 81 mg DAILY@1200 [facility] Administration Atorvastatin Calcium 80 mg 08/07/20 09:00 08/10/20 08:41 Atorvastatin Calcium 80 Mg Tablet PO 80 mg DAILY [facility] Administration Diphenhydramine HCl 25 mg 08/06/20 15:56 Diphenhydramine Hcl 25 Mg Tablet PO Q4H PRN itch Enoxaparin Sodium 30 mg 08/06/20 15:00 08/09/20 14:51 Enoxaparin Sodium 30 Mg/0.3 Ml Syringe SUBCUT 30 mg Q24H [facility] Administration Escitalopram Oxalate 10 mg 08/07/20 12:00 08/09/20 13:18 Escitalopram Oxalate 10 Mg Tablet PO 10 mg DAILY@1200 [facility] Administration Furosemide 80 mg 08/07/20 18:00 08/10/20 08:42 Furosemide 100 Mg/10 Ml Vial IVPUSH 80 mg BID@0900,1800 [facility] Administration Protocol Hydroxyzine HCl 10 mg 08/06/20 15:56 08/06/20 23:34 Hydroxyzine Hcl 10 Mg Tablet PO 10 mg DAILY PRN Administration anxiety Insulin Glargine 30 unit 08/09/20 21:00 08/09/20 20:25 Insulin Glargine,Hum.Rec.Anlog 100 Unit/Ml 10 Ml Vial SUBCUT 30 unit BEDTIME [facility] Administration Isosorbide Mononitrate 30 mg 08/08/20 09:55 08/10/20 08:41 Isosorbide Mononitrate 30 Mg Tab.Er.24h PO 30 mg DAILY [facility] Administration Protocol Ketotifen Fumarate 1 drop 08/06/20 21:00 08/10/20 08:41 Ketotifen Fumarate 0.025% Oph 5 Ml Hao EYE-BOTH 1 drop BID [facility] Administration Levothyroxine Sodium 175 mcg 08/07/20 06:30 08/10/20 05:48 Levothyroxine Sodium 175 Mcg Tablet PO 175 mcg DAILY@0630 [facility] Administration Loratadine 10 mg 08/06/20 15:56 Loratadine 10 Mg Tablet PO DAILY PRN Allergic Symptoms Metoprolol Succinate 100 mg 08/07/20 21:00 08/09/20 20:23 Metoprolol Succinate Er 100 Mg Tab.Er.24h PO 100 mg BEDTIME [facility] Administration Protocol Multivitamins/Minerals 1 tab 08/07/20 09:00 08/10/20 08:41 Multivitamin With Minerals Tablet PO 1 tab DAILY [facility] Administration Nystatin 1 appl 08/08/20 21:00 08/10/20 08:42 Nystatin Powder 15 Gm Bottle TOPICAL 1 appl BID [facility] Administration Protocol Pharmacy Consult 1 each 08/06/20 12:38 Consult Rx Perform Med Rec MISCELLANE ONCE PRN Consult order Sodium Chloride 3 ml 08/06/20 16:00 08/10/20 08:42 0.9 % Sodium Chloride Flush 3 Ml Syringe IVFLUSH 3 ml QSHIFT [facility] Administration Vitamin D 25 mcg 08/07/20 12:00 08/09/20 13:18 Cholecalciferol (Vitamin D3) 25 Mcg Tablet PO 25 mcg DAILY@1200 [facility] Administration Time Spent With Patient Time: 15, min .Total time spent is greater than 50% in coordination of care (as documented) at patient's floor/unit and/or counseling patient: Time with patient: 15 - 24 minutes
[2020-08-10 11:33] LABS: Glucose, Whole Blood 234 mg/dL (60-115)
--- NOTE | 2020-08-10 11:55 | HO.PM.IMPN ---
Subjective Subjective Date of Service: 08/10/20 Interval History: Seen in f/u for HF. Reports feeling better each day. Able to walk short distance in room with less sob than prior days. Still has significant leg edema. mild sob Review of Systems Gen: no fever Resp: + sob, no cough CV: no chest, +LEYVA, +leg edema GI: No n/v, no abd pain Neuro: No confusion Physical Exam Vital Signs: Vital Signs: Last Vital Signs Temp 96.9 F 08/10/20 10:50 Pulse 65 08/10/20 10:50 Resp 18 08/10/20 10:50 BP 124/66 08/10/20 10:50 Pulse Ox 98 08/10/20 10:50 Body Mass Index 61.4 Constitutional Awake and Alert, No apparent distress Neck Supple, No lymphadenopathy HEENT: no more swelling around eyes Cardiovascular RRR, No M/R/G, S1 S2, No S3 S4, 2+ pedal edema Respiratory decrease breath sound, no acessory muscle use Gastrointestinal Non tender, Non-distended Skin No rash Neurological Alert & oriented x3 Psychological Appropriate affect Objective Data Current Medications Generic Name Dose Route Start Last Admin Trade Name Freq PRN Reason Stop Dose Admin Acetaminophen 650 mg 08/07/20 13:21 08/09/20 02:36 Acetaminophen 325 Mg Tablet PO 650 mg Q6H PRN Administration Pain, Mild (Pain Scale 1-3) Amlodipine Besylate 10 mg 08/07/20 12:00 08/09/20 13:18 Amlodipine Besylate 10 Mg Tablet PO 10 mg DAILY@1200 [facility] Administration Protocol Aspirin 81 mg 08/07/20 12:00 08/09/20 13:18 Aspirin Enteric Coated 81 Mg Tablet.Dr PO 81 mg DAILY@1200 [facility] Administration Atorvastatin Calcium 80 mg 08/07/20 09:00 08/10/20 08:41 Atorvastatin Calcium 80 Mg Tablet PO 80 mg DAILY [facility] Administration Diphenhydramine HCl 25 mg 08/06/20 15:56 Diphenhydramine Hcl 25 Mg Tablet PO Q4H PRN itch Enoxaparin Sodium 30 mg 08/06/20 15:00 08/09/20 14:51 Enoxaparin Sodium 30 Mg/0.3 Ml Syringe SUBCUT 30 mg Q24H [facility] Administration Escitalopram Oxalate 10 mg 08/07/20 12:00 08/09/20 13:18 Escitalopram Oxalate 10 Mg Tablet PO 10 mg DAILY@1200 [facility] Administration Furosemide 80 mg 08/07/20 18:00 08/10/20 08:42 Furosemide 100 Mg/10 Ml Vial IVPUSH 80 mg BID@0900,1800 [facility] Administration Protocol Hydroxyzine HCl 10 mg 08/06/20 15:56 08/06/20 23:34 Hydroxyzine Hcl 10 Mg Tablet PO 10 mg DAILY PRN Administration anxiety Insulin Glargine 30 unit 08/09/20 21:00 08/09/20 20:25 Insulin Glargine,Hum.Rec.Anlog 100 Unit/Ml 10 Ml Vial SUBCUT 30 unit BEDTIME [facility] Administration Isosorbide Mononitrate 30 mg 08/08/20 09:55 08/10/20 08:41 Isosorbide Mononitrate 30 Mg Tab.Er.24h PO 30 mg DAILY [facility] Administration Protocol Ketotifen Fumarate 1 drop 08/06/20 21:00 08/10/20 08:41 Ketotifen Fumarate 0.025% Oph 5 Ml Drpbtl EYE-BOTH 1 drop BID [facility] Administration Levothyroxine Sodium 175 mcg 08/07/20 06:30 08/10/20 05:48 Levothyroxine Sodium 175 Mcg Tablet PO 175 mcg DAILY@0630 [facility] Administration Loratadine 10 mg 08/06/20 15:56 Loratadine 10 Mg Tablet PO DAILY PRN Allergic Symptoms Metoprolol Succinate 100 mg 08/07/20 21:00 08/09/20 20:23 Metoprolol Succinate Er 100 Mg Tab.Er.24h PO 100 mg BEDTIME [facility] Administration Protocol Multivitamins/Minerals 1 tab 08/07/20 09:00 08/10/20 08:41 Multivitamin With Minerals Tablet PO 1 tab DAILY [facility] Administration Nystatin 1 appl 08/08/20 21:00 08/10/20 08:42 Nystatin Powder 15 Gm Bottle TOPICAL 1 appl BID [facility] Administration Protocol Pharmacy Consult 1 each 08/06/20 12:38 Consult Rx Perform Med Rec MISCELLANE ONCE PRN Consult order Sodium Chloride 3 ml 08/06/20 16:00 08/10/20 08:42 0.9 % Sodium Chloride Flush 3 Ml Syringe IVFLUSH 3 ml QSHIFT [facility] Administration Vitamin D 25 mcg 08/07/20 12:00 08/09/20 13:18 Cholecalciferol (Vitamin D3) 25 Mcg Tablet PO 25 mcg DAILY@1200 [facility] Administration Labs CBC & Chem 7: 08/07/20 04:32 08/10/20 04:50 Assessment and Plan (1) Congestive heart failure: Problem details: Acute on chronic diastolic Status: Acute (2) Anasarca: Status: Acute (3) Diabetes mellitus with hyperglycemia: Status: Acute (4) Dyslipidemia, goal LDL below 100: Status: Acute (5) Essential hypertension: Problem details: Seems well controlled. Continue Amlodipine, Metoprolol, Imdur Status: Acute (6) Type 2 diabetes mellitus with diabetic nephropathy: Status: Acute (7) Autoimmune thyroiditis: Status: Acute (8) Morbid obesity due to excess calories: Status: Acute Assessment and Plan: 60 year female with class 3 obesity BMI 45, Diabetes, HTN, HLD, hypothyroidism, heart failure no prior echo report. She presents today ED with shortness of breath of 1 week during and is progressively worsening. Her symptoms are more prominent with exertion. She has PND and orthopnea. 1. Heart Failure--Probably acute on chronic diastolic heart failure -thus far negative 7.5 liters -Continue IV Lasix, - echocardiogram 08/08 EF 65-70% -Monitor I/O, daily weight, avoid salt, monitor electrolytes and renal function -quality assurance monitor body -BNP is half that of admission 2. Diabetes--SSI, Lantus in place of [place] not on formulary, 3.HTN--will continue Norvasc, and Metoprolol and adjust as needed 4. HLD--contine Crestor 5. Hypothyroidism--Levothyroxine 6. Depression --Celexa 7. Class 3 severe obesity--Weight loss encourage as this will complicate all underlying health issues 8. CKD is stable. 8. DVT prophylaxis, Lovenox CODE discussed: Full code
[2020-08-10] MEDS: Aspirin Enteric Coated 81 MG TABLET.DR PO (13:11)
[2020-08-10] MEDS: Cholecalciferol (Vitamin D3) 25 MCG TABLET PO (13:11)
[2020-08-10] MEDS: amLODIPine Besylate 10 MG TABLET PO (13:11)
[2020-08-10] MEDS: Escitalopram Oxalate 10 MG TABLET PO (13:11)
--- NOTE | 2020-08-10 15:44 | MHC.CM.PN ---
DP HOME WITH NEW REFERRAL TO [facility] WILL PROVIDE TRANSPORTATION.
[2020-08-10 16:37] LABS: Glucose, Whole Blood 289 mg/dL (60-115)
[2020-08-10] MEDS: Spironolactone 25 MG TABLET PO (17:56)
[2020-08-10] MEDS: Enoxaparin Sodium 30 MG/0.3 ML SYRINGE SUBCUT (17:56)
[2020-08-10] MEDS: metOLazone 2.5 MG TABLET PO (17:57)
[2020-08-10 21:27] LABS: Glucose, Whole Blood 349 mg/dL (60-115)
[2020-08-10] MEDS: Metoprolol Succinate ER 100 MG TAB.ER.24H PO (22:10)
[2020-08-10] MEDS: Insulin Glargine,Hum.rec.anlog 100 UNIT/ML 10 ML VIAL 30 UNIT SUBCUT (22:14)
[2020-08-10] MEDS: Insulin Lispro 100 UNIT/ML 3 ML VIAL SUBCUT (22:14)
[2020-08-10] MEDS: Famotidine 20 MG TABLET PO (22:15)
[2020-08-11] VITALS (10 sets, daily range): BP systolic 122–149; BP diastolic 58–78; PULSE 62–78; RESP 16–20; TEMP 36.2–36.9; O2SAT 94–98; BMI 58.3
[2020-08-11] MEDS: Levothyroxine Sodium 175 MCG TABLET PO (05:47)
[2020-08-11 07:21] LABS: Glucose, Whole Blood 259 mg/dL (60-115)
[2020-08-11 07:59] LABS: Anion Gap 13 (12-20); Blood Urea Nitrogen 24 mg/dL (9-16); Calcium 8.3 mg/dL (8.4-10.2); Carbon Dioxide 36 mmol/L (22-29); Chloride 93 mmol/L (96-108); Creatinine Clr Calc Pharmacy 64.9; Estimated Glomerular Filt Rate 43; Glucose Random 265 mg/dL (60-115); Potassium 3.2 mmol/l (3.3-5.1); Sodium 139 mmol/L (135-145)
[2020-08-11] MEDS: Insulin Lispro 100 UNIT/ML 3 ML VIAL SUBCUT ×4 (08:06→21:51)
[2020-08-11] MEDS: 0.9 % Sodium Chloride Flush 3 ML SYRINGE IVFLUSH ×3 (08:06→21:52)
[2020-08-11] MEDS: Isosorbide Mononitrate 30 MG TAB.ER.24H PO (08:07)
[2020-08-11] MEDS: Furosemide 100 MG/10 ML VIAL 80 MG IVPUSH ×2 (08:08→16:36)
[2020-08-11] MEDS: Spironolactone 25 MG TABLET PO (08:08)
[2020-08-11] MEDS: Nystatin Powder 15 GM BOTTLE 1 APPL TOPICAL ×2 (08:18→21:52)
[2020-08-11] MEDS: Ketotifen Fumarate 0.025% Oph 5 ML DRPBTL 1 DROP EYE-BOTH ×2 (09:02→21:52)
--- NOTE | 2020-08-11 09:48 | P.PNCA_ITS ---
Subjective Subjective Interval history: Cardiology follow up for CHF. Still improving but she reports breathing is not at baseline yet. Has ongoing tightness in her legs and sob with activity. Review of Systems Comments: Awake, sitting in chair, ate all of breakfast Eyes: Reports no additional eye complaints Cardiovascular: Reports syncope Comments: No chest pains, pressure, palpitations Respiratory: Denies chest congestion, Denies hemoptysis and Denies pain on inspiration Comments: Breathing unlabored at rest, sob with activity, slept with HOB elevated, using CPAP Gastrointestinal: Reports no additional gastrointestinal complaints and Denies abdominal pain Musculoskeletal: Reports no additional musculoskeletal complaints Comments: Legs feel tight still and swollen Reports system reviewed and no additional complaints, except as documented, Reports syncope and Reports Sensory deficit (Neuro) Physical Exam Vital Signs: Last Vital Signs Temp 97.6 F 08/11/20 08:00 Pulse 65 08/11/20 08:08 Resp 18 08/11/20 08:00 BP 122/58 L 08/11/20 08:08 Pulse Ox 98 08/11/20 08:00 Body Mass Index 58.3 Const Other: Alert, oriented, converses easily, No acute distress HENMT Other: Neck obese and difficult to assess for JVD Eyes Conjunctivae: conjunctivae normal Neck Carotids: carotid upstroke abnormal Resp Other: fine rales noted in right lower lobe and slightly left base, improving airation, no cough noted Effort & Inspection: normal respiratory effort, able to speak in complete sentences and not labored Auscultation: no rhonchi and no wheezes Cardio Rate: regular rate (distant) Rhythm: regular rhythm Heart sounds: S1 normal heart sound present and S2 normal heart sound present Peripheral pulses: Peripheral pulses 2+ throughout GI Inspection: Yes normal to inspection Skin General skin exam: no rashes or lesions noted Neuro Sensory Exam: Sensory deficit (Neuro) Results Labs and Meds Result diagrams: 08/07/20 04:32 08/11/20 06:01 Lab results: Laboratory Results - last 24 hr 08/10/20 08/10/20 08/10/20 11:21 16:32 21:23 Sodium Potassium Chloride Carbon Dioxide Anion Gap BUN Creatinine Estim Creat Clear Calc Estimated GFR POC Glucose 234 H 289 H 349 H Random Glucose Calcium 08/11/20 08/11/20 06:01 07:15 Sodium 139 Potassium 3.2 L Chloride 93 L Carbon Dioxide 36 H Anion Gap 13 BUN 24 H Creatinine 1.28 Estim Creat Clear Calc 64.9 Estimated GFR 43 POC Glucose 259 H Random Glucose 265 H Calcium 8.3 L D Progress Note: A&P Assessment and plan (1) Congestive heart failure: Problem details: Acute on chronic diastolic Status: Acute Assessment and Plan: Diuresing well. Breathing slowly improving. Reports she is not at baseline yet. Using O2 2liters and sat 98%. Does not wear O2 at home. Clinical evidence of fluid overload still with tight leg edema and fine rales on exam. She is obese and the degree of actual edema is difficult to assess. Unable to clearly assess JVD. Cr 1.28, Bun 24[place] [id number]. Would continue to diurese with IV Lasix. Ongoing strict I+O monitoring, close monitoring of electrolyte and kidney function. Electrolyte replacement as warranted. Increase activity as tolerated. We will follow. (2) Aortic stenosis: Status: Acute Assessment and Plan: Mild to moderate. Will be followed by our office as outpt (3) Anasarca: Status: Acute (4) Essential hypertension: Problem details: Seems well controlled. Continue Amlodipine, Metoprolol, Imdur Status: Acute (5) Morbid obesity due to excess calories: Status: Acute Fall Risk Details Current Medications: Current Medications Generic Name Dose Route Start Last Admin Trade Name Freq PRN Reason Stop Dose Admin Acetaminophen 650 mg 08/07/20 13:21 08/09/20 02:36 Acetaminophen 325 Mg Tablet PO 650 mg Q6H PRN Administration Pain, Mild (Pain Scale 1-3) Amlodipine Besylate 10 mg 08/07/20 12:00 08/10/20 13:11 Amlodipine Besylate 10 Mg Tablet PO 10 mg DAILY@1200 [facility] Administration Protocol Aspirin 81 mg 08/07/20 12:00 08/10/20 13:11 Aspirin Enteric Coated 81 Mg Tablet. PO 81 mg DAILY@1200 [facility] Administration Atorvastatin Calcium 80 mg 08/11/20 21:00 Atorvastatin Calcium 80 Mg Tablet PO BEDTIME [facility] Diphenhydramine HCl 25 mg 08/06/20 15:56 Diphenhydramine Hcl 25 Mg Tablet PO Q4H PRN itch Enoxaparin Sodium 30 mg 08/06/20 15:00 08/10/20 17:56 Enoxaparin Sodium 30 Mg/0.3 Ml Syringe SUBCUT 30 mg Q24H [facility] Administration Escitalopram Oxalate 10 mg 08/07/20 12:00 08/10/20 13:11 Escitalopram Oxalate 10 Mg Tablet PO 10 mg DAILY@1200 [facility] Administration Furosemide 80 mg 08/07/20 18:00 08/11/20 08:08 Furosemide 100 Mg/10 Ml Vial IVPUSH 80 mg BID@0900,1800 [facility] Administration Protocol Hydroxyzine HCl 10 mg 08/06/20 15:56 08/06/20 23:34 Hydroxyzine Hcl 10 Mg Tablet PO 10 mg DAILY PRN Administration anxiety Insulin Glargine 30 unit 08/09/20 21:00 08/10/20 22:14 Insulin Glargine,Hum.Rec.Anlog 100 Unit/Ml 10 Ml Vial SUBCUT 1 unit BEDTIME [facility] Administration Insulin Human Lispro 0 unit 08/11/20 07:30 08/11/20 08:06 Insulin Lispro 100 Unit/Ml 3 Ml Vial SUBCUT 08/11/20 21:58 6 unit QIDACHS [facility] Administration Protocol Isosorbide Mononitrate 30 mg 08/08/20 09:55 08/11/20 08:07 Isosorbide Mononitrate 30 Mg Tab.Er.24h PO 30 mg DAILY [facility] Administration Protocol Ketotifen Fumarate 1 drop 08/06/20 21:00 08/11/20 09:02 Ketotifen Fumarate 0.025% Oph 5 Ml Drpbtl EYE-BOTH 1 drop BID [facility] Administration Levothyroxine Sodium 175 mcg 08/07/20 06:30 08/11/20 05:47 Levothyroxine Sodium 175 Mcg Tablet PO 175 mcg DAILY@0630 [facility] Administration Loratadine 10 mg 08/06/20 15:56 Loratadine 10 Mg Tablet PO DAILY PRN Allergic Symptoms Metoprolol Succinate 100 mg 08/07/20 21:00 08/10/20 22:10 Metoprolol Succinate Er 100 Mg Tab.Er.24h PO 100 mg BEDTIME [facility] Administration Protocol Multivitamins/Minerals 1 tab 08/07/20 09:00 08/11/20 08:07 Multivitamin With Minerals Tablet PO 1 tab DAILY [facility] Administration Nystatin 1 appl 08/08/20 21:00 08/11/20 08:18 Nystatin Powder 15 Gm Bottle TOPICAL 1 appl BID [facility] Administration Protocol Pharmacy Consult 1 each 08/06/20 12:38 Consult Rx Perform Med Rec MISCELLANE ONCE PRN Consult order Sodium Chloride 3 ml 08/06/20 16:00 08/11/20 08:06 0.9 % Sodium Chloride Flush 3 Ml Syringe IVFLUSH 3 ml QSHIFT [facility] Administration Spironolactone 25 mg 08/10/20 17:00 08/11/20 08:08 Spironolactone 25 Mg Tablet PO 25 mg DAILY [facility] Administration Protocol Vitamin D 25 mcg 08/07/20 12:00 08/10/20 13:11 Cholecalciferol (Vitamin D3) 25 Mcg Tablet PO 25 mcg DAILY@1200 [facility] Administration Time Spent With Patient Time: Total time spent is greater than 50% in coordination of care (as documented) at patient's floor/unit and/or counseling patient: 15 Time with patient: 15 - 24 minutes
--- NOTE | 2020-08-11 10:05 | HO.PM.IMPN ---
Subjective Subjective Date of Service: 08/11/20 Interval History: Seen in f/u for HF. Continue to feel better daily. Still has marked swelling in the legs and high output in marsh Review of Systems Gen: no fever Resp: no sob, no cough CV: no chest,+ LEYVA, _ leg edema GI: No n/v, no abd pain Neuro: No confusion Physical Exam Vital Signs: Vital Signs: Last Vital Signs Temp 97.6 F 08/11/20 08:00 Pulse 65 08/11/20 08:08 Resp 18 08/11/20 08:00 BP 122/58 L 08/11/20 08:08 Pulse Ox 98 08/11/20 08:00 Body Mass Index 58.3 Constitutional Awake and Alert, No apparent distress Neck Supple, No lymphadenopathy HEENT: no more swelling around eyes Cardiovascular RRR, No M/R/G, S1 S2, No S3 S4, 2+ pedal edema Respiratory decrease breath sound, no acessory muscle use Gastrointestinal Non tender, Non-distended Skin No rash Neurological Alert & oriented x3 Psychological Appropriate affect Objective Data Current Medications Generic Name Dose Route Start Last Admin Trade Name Freq PRN Reason Stop Dose Admin Acetaminophen 650 mg 08/07/20 13:21 08/09/20 02:36 Acetaminophen 325 Mg Tablet PO 650 mg Q6H PRN Administration Pain, Mild (Pain Scale 1-3) Amlodipine Besylate 10 mg 08/07/20 12:00 08/10/20 13:11 Amlodipine Besylate 10 Mg Tablet PO 10 mg DAILY@1200 [facility] Administration Protocol Aspirin 81 mg 08/07/20 12:00 08/10/20 13:11 Aspirin Enteric Coated 81 Mg Tablet.Dr PO 81 mg DAILY@1200 [facility] Administration Atorvastatin Calcium 80 mg 08/11/20 21:00 Atorvastatin Calcium 80 Mg Tablet PO BEDTIME [facility] Diphenhydramine HCl 25 mg 08/06/20 15:56 Diphenhydramine Hcl 25 Mg Tablet PO Q4H PRN itch Enoxaparin Sodium 30 mg 08/06/20 15:00 08/10/20 17:56 Enoxaparin Sodium 30 Mg/0.3 Ml Syringe SUBCUT 30 mg Q24H [facility] Administration Escitalopram Oxalate 10 mg 08/07/20 12:00 08/10/20 13:11 Escitalopram Oxalate 10 Mg Tablet PO 10 mg DAILY@1200 [facility] Administration Furosemide 80 mg 08/07/20 18:00 08/11/20 08:08 Furosemide 100 Mg/10 Ml Vial IVPUSH 80 mg BID@0900,1800 [facility] Administration Protocol Hydroxyzine HCl 10 mg 08/06/20 15:56 08/06/20 23:34 Hydroxyzine Hcl 10 Mg Tablet PO 10 mg DAILY PRN Administration anxiety Insulin Glargine 30 unit 08/09/20 21:00 08/10/20 22:14 Insulin Glargine,Hum.Rec.Anlog 100 Unit/Ml 10 Ml Vial SUBCUT 1 unit BEDTIME [facility] Administration Insulin Human Lispro 0 unit 08/11/20 07:30 08/11/20 08:06 Insulin Lispro 100 Unit/Ml 3 Ml Vial SUBCUT 08/11/20 21:58 6 unit QIDACHS [facility] Administration Protocol Isosorbide Mononitrate 30 mg 08/08/20 09:55 08/11/20 08:07 Isosorbide Mononitrate 30 Mg Tab.Er.24h PO 30 mg DAILY [facility] Administration Protocol Ketotifen Fumarate 1 drop 08/06/20 21:00 08/11/20 09:02 Ketotifen Fumarate 0.025% Oph 5 Ml Drpbtl EYE-BOTH 1 drop BID [facility] Administration Levothyroxine Sodium 175 mcg 08/07/20 06:30 08/11/20 05:47 Levothyroxine Sodium 175 Mcg Tablet PO 175 mcg DAILY@0630 [facility] Administration Loratadine 10 mg 08/06/20 15:56 Loratadine 10 Mg Tablet PO DAILY PRN Allergic Symptoms Metoprolol Succinate 100 mg 08/07/20 21:00 08/10/20 22:10 Metoprolol Succinate Er 100 Mg Tab.Er.24h PO 100 mg BEDTIME [facility] Administration Protocol Multivitamins/Minerals 1 tab 08/07/20 09:00 08/11/20 08:07 Multivitamin With Minerals Tablet PO 1 tab DAILY [facility] Administration Nystatin 1 appl 08/08/20 21:00 08/11/20 08:18 Nystatin Powder 15 Gm Bottle TOPICAL 1 appl BID [facility] Administration Protocol Pharmacy Consult 1 each 08/06/20 12:38 Consult Rx Perform Med Rec MISCELLANE ONCE PRN Consult order Sodium Chloride 3 ml 08/06/20 16:00 08/11/20 08:06 0.9 % Sodium Chloride Flush 3 Ml Syringe IVFLUSH 3 ml QSHIFT [facility] Administration Spironolactone 25 mg 08/10/20 17:00 08/11/20 08:08 Spironolactone 25 Mg Tablet PO 25 mg DAILY [facility] Administration Protocol Vitamin D 25 mcg 08/07/20 12:00 08/10/20 13:11 Cholecalciferol (Vitamin D3) 25 Mcg Tablet PO 25 mcg DAILY@1200 [facility] Administration Labs CBC & Chem 7: 08/07/20 04:32 08/11/20 06:01 Assessment and Plan (1) Congestive heart failure: Problem details: Acute on chronic diastolic Status: Acute (2) Anasarca: Status: Acute (3) Diabetes mellitus with hyperglycemia: Status: Acute (4) Dyslipidemia, goal LDL below 100: Status: Acute (5) Essential hypertension: Problem details: Seems well controlled. Continue Amlodipine, Metoprolol, Imdur Status: Acute (6) Type 2 diabetes mellitus with diabetic nephropathy: Status: Acute (7) Autoimmune thyroiditis: Status: Acute (8) Morbid obesity due to excess calories: Status: Acute Assessment and Plan: 60 year female with class 3 obesity BMI 45, Diabetes, HTN, HLD, hypothyroidism, heart failure no prior echo report. She presents today ED with shortness of breath of 1 week during and is progressively worsening. Her symptoms are more prominent with exertion. She has PND and orthopnea. 1. Heart Failure--Probably acute on chronic diastolic heart failure -Continue IV Lasix, - echocardiogram 08/08 EF 65-70% -Monitor I/O, daily weight, avoid salt, monitor electrolytes and renal function -cardiac specialist -BNP is half that of admission -correct electrolytes -keep marsh in for accurate I/O 2. Diabetes--SSI, Lantus in place of [place] not on formulary, 3.HTN--will continue Norvasc, and Metoprolol and adjust as needed 4. HLD--contine Crestor 5. Hypothyroidism--Levothyroxine 6. Depression --Celexa 7. Class 3 severe obesity--Weight loss encourage as this will complicate all underlying health issues 8. CKD is stable. 9. Hypokalemia--replace with PO k, check mag 8. DVT prophylaxis, Lovenox CODE discussed: Full code
[2020-08-11] MEDS: Potassium Chloride Packet 20 MEQ PACKET 40 MEQ PO ×2 (10:25→20:30)
[2020-08-11] MEDS: Acetaminophen 325 MG TABLET 650 MG PO ×2 (10:25→20:29)
[2020-08-11 11:12] LABS: Glucose, Whole Blood 253 mg/dL (60-115)
[2020-08-11 11:15] LABS: Magnesium 1.4 mg/dL (1.6-2.6)
[2020-08-11] MEDS: Aspirin Enteric Coated 81 MG TABLET.DR PO (11:52)
[2020-08-11] MEDS: Cholecalciferol (Vitamin D3) 25 MCG TABLET PO (11:52)
[2020-08-11] MEDS: Escitalopram Oxalate 10 MG TABLET PO (11:53)
[2020-08-11] MEDS: amLODIPine Besylate 10 MG TABLET PO (11:53)
[2020-08-11] MEDS: Magnesium Sulfate/H2O 2 GM/50 ML PIGGYBACK IV (13:30)
[2020-08-11] MEDS: Enoxaparin Sodium 30 MG/0.3 ML SYRINGE SUBCUT (13:31)
[2020-08-11 16:16] LABS: Glucose, Whole Blood 247 mg/dL (60-115)
[2020-08-11] MEDS: Atorvastatin Calcium 80 MG TABLET PO (20:30)
[2020-08-11] MEDS: Metoprolol Succinate ER 100 MG TAB.ER.24H PO (20:54)
[2020-08-11 21:45] LABS: Glucose, Whole Blood 326 mg/dL (60-115)
[2020-08-11] MEDS: Insulin Glargine,Hum.rec.anlog 100 UNIT/ML 10 ML VIAL 30 UNIT SUBCUT (21:51)
[2020-08-12] VITALS (10 sets, daily range): BP systolic 107–146; BP diastolic 55–82; PULSE 58–84; RESP 18–20; TEMP 36.2–37.8; O2SAT 92–96; BMI 57.2
[2020-08-12] MEDS: Levothyroxine Sodium 175 MCG TABLET PO (06:03)
[2020-08-12 07:37] LABS: Glucose, Whole Blood 218 mg/dL (60-115)
[2020-08-12 07:50] LABS: Anion Gap 14 (12-20); Blood Urea Nitrogen 23 mg/dL (9-16); Calcium 8.4 mg/dL (8.4-10.2); Carbon Dioxide 36 mmol/L (22-29); Chloride 90 mmol/L (96-108); Creatinine Clr Calc Pharmacy 66.7; Estimated Glomerular Filt Rate 45; Glucose Random 233 mg/dL (60-115); Potassium 3.4 mmol/l (3.3-5.1); Sodium 137 mmol/L (135-145)
[2020-08-12] MEDS: 0.9 % Sodium Chloride Flush 3 ML SYRINGE IVFLUSH ×2 (08:39→14:05)
[2020-08-12] MEDS: Furosemide 100 MG/10 ML VIAL 80 MG IVPUSH (08:39)
[2020-08-12] MEDS: Nystatin Powder 15 GM BOTTLE 1 APPL TOPICAL ×2 (08:42→20:54)
[2020-08-12] MEDS: Spironolactone 25 MG TABLET PO (08:42)
[2020-08-12] MEDS: Isosorbide Mononitrate 30 MG TAB.ER.24H PO (08:42)
[2020-08-12] MEDS: Potassium Chloride Packet 20 MEQ PACKET 40 MEQ PO (08:43)
[2020-08-12] MEDS: Ketotifen Fumarate 0.025% Oph 5 ML DRPBTL 1 DROP EYE-BOTH ×2 (11:45→20:53)
--- NOTE | 2020-08-12 12:53 | P.PNIM_ITS ---
Subjective Subjective Interval History: Seen in f/u for HF. Continue to feel better daily. Still has marked swelling in the legs and high output in marsh Physical Exam Vital Signs: Vital Signs: Last Vital Signs Temp 99.1 F 08/12/20 12:00 Pulse 66 08/12/20 12:00 Resp 20 08/12/20 12:00 BP 129/56 L 08/12/20 12:00 Pulse Ox 96 08/12/20 12:00 Body Mass Index 57.2 Constitutional Awake and Alert, No apparent distress Neck Supple, No lymphadenopathy HEENT: no more swelling around eyes Cardiovascular RRR, No M/R/G, S1 S2, No S3 S4, 2+ pedal edema Respiratory decrease breath sound, no acessory muscle use Gastrointestinal Non tender, Non-distended Skin No rash Neurological Alert & oriented x3 Psychological Appropriate affect Objective Data Current Medications Generic Name Dose Route Start Last Admin Trade Name Freq PRN Reason Stop Dose Admin Acetaminophen 650 mg 08/07/20 13:21 08/11/20 20:29 Acetaminophen 325 Mg Tablet PO 650 mg Q6H PRN Administration Pain, Mild (Pain Scale 1-3) Amlodipine Besylate 10 mg 08/07/20 12:00 08/11/20 11:53 Amlodipine Besylate 10 Mg Tablet PO 10 mg DAILY@1200 [facility] Administration Protocol Aspirin 81 mg 08/07/20 12:00 08/11/20 11:52 Aspirin Enteric Coated 81 Mg Tablet.Dr PO 81 mg DAILY@1200 [facility] Administration Atorvastatin Calcium 80 mg 08/11/20 21:00 08/11/20 20:30 Atorvastatin Calcium 80 Mg Tablet PO 80 mg BEDTIME [facility] Administration Diphenhydramine HCl 25 mg 08/06/20 15:56 Diphenhydramine Hcl 25 Mg Tablet PO Q4H PRN itch Enoxaparin Sodium 30 mg 08/06/20 15:00 08/11/20 13:31 Enoxaparin Sodium 30 Mg/0.3 Ml Syringe SUBCUT 30 mg Q24H [facility] Administration Escitalopram Oxalate 10 mg 08/07/20 12:00 08/11/20 11:53 Escitalopram Oxalate 10 Mg Tablet PO 10 mg DAILY@1200 [facility] Administration Hydroxyzine HCl 10 mg 08/06/20 15:56 08/06/20 23:34 Hydroxyzine Hcl 10 Mg Tablet PO 10 mg DAILY PRN Administration anxiety Insulin Glargine 30 unit 08/09/20 21:00 08/11/20 21:51 Insulin Glargine,Hum.Rec.Anlog 100 Unit/Ml 10 Ml Vial SUBCUT 30 unit BEDTIME [facility] Administration Isosorbide Mononitrate 30 mg 08/08/20 09:55 08/12/20 08:42 Isosorbide Mononitrate 30 Mg Tab.Er.24h PO 30 mg DAILY [facility] Administration Protocol Ketotifen Fumarate 1 drop 08/06/20 21:00 08/12/20 11:45 Ketotifen Fumarate 0.025% Oph 5 Ml Drpbtl EYE-BOTH 1 drop BID [facility] Administration Levothyroxine Sodium 175 mcg 08/07/20 06:30 08/12/20 06:03 Levothyroxine Sodium 175 Mcg Tablet PO 175 mcg DAILY@0630 [facility] Administration Loratadine 10 mg 08/06/20 15:56 Loratadine 10 Mg Tablet PO DAILY PRN Allergic Symptoms Metoprolol Succinate 100 mg 08/07/20 21:00 08/11/20 20:54 Metoprolol Succinate Er 100 Mg Tab.Er.24h PO 100 mg BEDTIME [facility] Administration Protocol Multivitamins/Minerals 1 tab 08/07/20 09:00 08/12/20 08:41 Multivitamin With Minerals Tablet PO 1 tab DAILY [facility] Administration Nystatin 1 appl 08/08/20 21:00 08/12/20 08:42 Nystatin Powder 15 Gm Bottle TOPICAL 1 appl BID [facility] Administration Protocol Pharmacy Consult 1 each 08/06/20 12:38 Consult Rx Perform Med Rec MISCELLANE ONCE PRN Consult order Sodium Chloride 3 ml 08/06/20 16:00 08/12/20 08:39 0.9 % Sodium Chloride Flush 3 Ml Syringe IVFLUSH 3 ml QSHIFT [facility] Administration Spironolactone 25 mg 08/10/20 17:00 08/12/20 08:42 Spironolactone 25 Mg Tablet PO 25 mg DAILY [facility] Administration Protocol Vitamin D 25 mcg 08/07/20 12:00 08/11/20 11:52 Cholecalciferol (Vitamin D3) 25 Mcg Tablet PO 25 mcg DAILY@1200 [facility] Administration Labs CBC & Chem 7: 08/07/20 04:32 08/17/20 09:15 Assessment and Plan (1) Congestive heart failure: (2) Anasarca: (3) Diabetes mellitus with hyperglycemia: (4) Dyslipidemia, goal LDL below 100: (5) Essential hypertension: (6) Type 2 diabetes mellitus with diabetic nephropathy: (7) Autoimmune thyroiditis: (8) Morbid obesity due to excess calories: Assessment and Plan: 60 year female with class 3 obesity BMI 45, Diabetes, HTN, HLD, hypothyroidism, heart failure no prior echo report. She presents today ED with shortness of breath of 1 week during and is progressively worsening. Her symptoms are more prominent with exertion. She has PND and orthopnea. 1. 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 Diabetes--SSI, Lantus in place of [place] not on formulary, 3.HTN--will continue Norvasc, and Metoprolol and adjust as needed 4. HLD--contine Crestor 5. Hypothyroidism--Levothyroxine 6. Depression --Celexa 7. Class 3 severe obesity--Weight loss encourage as this will complicate all underlying health issues 8. CKD is stable. 9. Hypokalemia--replace with PO k, check mag 8. DVT prophylaxis, Lovenox CODE discussed: Full code
[2020-08-12 13:07] LABS: Glucose, Whole Blood 332 mg/dL (60-115)
[2020-08-12 13:40] LABS: Thyroid Stimulating Hormone 22.76 uIU/mL (0.32-4.0)
[2020-08-12] MEDS: Furosemide 500 MG in Container,Empty 0 ML IVPUSH (13:53)
[2020-08-12] MEDS: amLODIPine Besylate 10 MG TABLET PO (13:54)
[2020-08-12] MEDS: Escitalopram Oxalate 10 MG TABLET PO (13:54)
[2020-08-12] MEDS: Enoxaparin Sodium 30 MG/0.3 ML SYRINGE SUBCUT (13:54)
[2020-08-12] MEDS: Cholecalciferol (Vitamin D3) 25 MCG TABLET PO (13:55)
[2020-08-12] MEDS: Aspirin Enteric Coated 81 MG TABLET.DR PO (13:55)
[2020-08-12] MEDS: Acetaminophen 325 MG TABLET 650 MG PO (16:28)
--- NOTE | 2020-08-12 16:46 | P.PNCA_ITS ---
Subjective Subjective Interval history: Feeling better. Still significantly volume overloaded. Review of Systems Review of Systems Yes all other systems are reviewed and are negative Reports dizziness Cardiovascular: Reports syncope Reports system reviewed and no additional complaints, except as documented, Reports dizziness and Reports syncope Physical Exam Vital Signs: Last Vital Signs Temp 100.1 F 08/12/20 16:00 Pulse 72 08/12/20 16:00 Resp 18 08/12/20 16:00 BP 119/55 L 08/12/20 16:00 Pulse Ox 92 08/12/20 16:00 Body Mass Index 57.2 GENERAL APPEARANCE: No acute distress. HEENT: unremarkable. HEAD: normocephalic, atraumatic. NECK/THYROID: no carotid bruit, JVD+. SKIN: no suspicious lesions, warm and dry. HEART: no murmurs, regular rate and rhythm, distant heart sounds. LUNGS: clear to auscultation bilaterally. ABDOMEN: Distended, abdominal wall edema. EXTREMITIES: no clubbing, cyanosis. 2-3+ edema PERIPHERAL PULSES: equal. NEUROLOGIC: nonfocal, alert and oriented. PSYCH: mood/affect full range. Results Labs and Meds Result diagrams: 08/07/20 04:32 08/12/20 06:01 Lab results: Laboratory Results - last 24 hr 08/11/20 08/12/20 08/12/20 21:41 06:01 07:25 Sodium 137 Potassium 3.4 Chloride 90 L Carbon Dioxide 36 H Anion Gap 14 BUN 23 H Creatinine 1.23 Estim Creat Clear Calc 66.7 Estimated GFR 45 POC Glucose 326 H 218 H Random Glucose 233 H Calcium 8.4 TSH 22.76 H 08/12/20 13:03 Sodium Potassium Chloride Carbon Dioxide Anion Gap BUN Creatinine Estim Creat Clear Calc Estimated GFR POC Glucose 332 H Random Glucose Calcium TSH Progress Note: A&P Assessment and plan (1) Aortic stenosis: Status: Acute (2) Congestive heart failure: Problem details: Acute on chronic diastolic Status: Acute (3) Anasarca: Status: Acute Assessment and Plan: 60 year female with CHF, mostly right sided with signficant peripheral edema and abdominal distension. Please change to Lasix gtt. Continue to monitor K and Mg closely. May need few more days of IV diuresis. >18 Liters negative currently. We will follow along. Fall Risk Details Current Medications: Current Medications Generic Name Dose Route Start Last Admin Trade Name Hussein PRN Reason Stop Dose Admin Acetaminophen 650 mg 08/07/20 13:21 08/12/20 16:28 Acetaminophen 325 Mg Tablet PO 650 mg Q6H PRN Administration Pain, Mild (Pain Scale 1-3) Amlodipine Besylate 10 mg 08/07/20 12:00 08/12/20 13:54 Amlodipine Besylate 10 Mg Tablet PO 10 mg DAILY@1200 [facility] Administration Protocol Aspirin 81 mg 08/07/20 12:00 08/12/20 13:55 Aspirin Enteric Coated 81 Mg Tablet.Dr PO 81 mg DAILY@1200 [facility] Administration Atorvastatin Calcium 80 mg 08/11/20 21:00 08/11/20 20:30 Atorvastatin Calcium 80 Mg Tablet PO 80 mg BEDTIME [facility] Administration Diphenhydramine HCl 25 mg 08/06/20 15:56 Diphenhydramine Hcl 25 Mg Tablet PO Q4H PRN itch Enoxaparin Sodium 30 mg 08/06/20 15:00 08/12/20 13:54 Enoxaparin Sodium 30 Mg/0.3 Ml Syringe SUBCUT 30 mg Q24H [facility] Administration Escitalopram Oxalate 10 mg 08/07/20 12:00 08/12/20 13:54 Escitalopram Oxalate 10 Mg Tablet PO 10 mg DAILY@1200 [facility] Administration Hydroxyzine HCl 10 mg 08/06/20 15:56 08/06/20 23:34 Hydroxyzine Hcl 10 Mg Tablet PO 10 mg DAILY PRN Administration anxiety Furosemide 500 mg/ IV 50 mls @ 1 mls/hr 08/12/20 13:15 08/12/20 13:53 Miscellaneous Supplies IVPUSH 1 mls/hr DAILY [facility] Administration Insulin Glargine 30 unit 08/09/20 21:00 08/11/20 21:51 Insulin Glargine,Hum.Rec.Anlog 100 Unit/Ml 10 Ml Vial SUBCUT 30 unit BEDTIME [facility] Administration Isosorbide Mononitrate 30 mg 08/08/20 09:55 08/12/20 08:42 Isosorbide Mononitrate 30 Mg Tab.Er.24h PO 30 mg DAILY [facility] Administration Protocol Ketotifen Fumarate 1 drop 08/06/20 21:00 08/12/20 11:45 Ketotifen Fumarate 0.025% Oph 5 Ml Drpbtl EYE-BOTH 1 drop BID [facility] Administration Levothyroxine Sodium 175 mcg 08/07/20 06:30 08/12/20 06:03 Levothyroxine Sodium 175 Mcg Tablet PO 175 mcg DAILY@0630 [facility] Administration Loratadine 10 mg 08/06/20 15:56 Loratadine 10 Mg Tablet PO DAILY PRN Allergic Symptoms Metoprolol Succinate 100 mg 08/07/20 21:00 08/11/20 20:54 Metoprolol Succinate Er 100 Mg Tab.Er.24h PO 100 mg BEDTIME [facility] Administration Protocol Multivitamins/Minerals 1 tab 08/07/20 09:00 08/12/20 08:41 Multivitamin With Minerals Tablet PO 1 tab DAILY [facility] Administration Nystatin 1 appl 08/08/20 21:00 08/12/20 08:42 Nystatin Powder 15 Gm Bottle TOPICAL 1 appl BID [facility] Administration Protocol Pharmacy Consult 1 each 08/06/20 12:38 Consult Rx Perform Med Rec MISCELLANE ONCE PRN Consult order Sodium Chloride 3 ml 08/06/20 16:00 08/12/20 14:05 0.9 % Sodium Chloride Flush 3 Ml Syringe IVFLUSH 3 ml QSHIFT [facility] Administration Spironolactone 25 mg 08/10/20 17:00 08/12/20 08:42 Spironolactone 25 Mg Tablet PO 25 mg DAILY [facility] Administration Protocol Vitamin D 25 mcg 08/07/20 12:00 08/12/20 13:55 Cholecalciferol (Vitamin D3) 25 Mcg Tablet PO 25 mcg DAILY@1200 [facility] Administration Time Spent With Patient Time: Total time spent is greater than 50% in coordination of care (as documented) at patient's floor/unit and/or counseling patient: Time with patient: less than 15 minutes
[2020-08-12 16:52] LABS: Glucose, Whole Blood 403 mg/dL (60-115)
[2020-08-12] MEDS: Insulin Lispro 100 UNIT/ML 3 ML VIAL SUBCUT ×2 (17:35→20:52)
[2020-08-12 20:43] LABS: Glucose, Whole Blood 345 mg/dL (60-115)
[2020-08-12] MEDS: Atorvastatin Calcium 80 MG TABLET PO (20:51)
[2020-08-12] MEDS: Metoprolol Succinate ER 100 MG TAB.ER.24H PO (20:51)
[2020-08-12] MEDS: Insulin Glargine,Hum.rec.anlog 100 UNIT/ML 10 ML VIAL 30 UNIT SUBCUT (20:52)
[2020-08-13] VITALS (11 sets, daily range): BP systolic 117–146; BP diastolic 52–68; PULSE 62–76; RESP 14–20; TEMP 36.6–37.6; O2SAT 91–97; BMI 55.0
[2020-08-13] MEDS: Levothyroxine Sodium 175 MCG TABLET PO (06:29)
[2020-08-13 06:52] LABS: B Type Natriuretic Peptide 301 pg/mL (<100)
[2020-08-13 07:14] LABS: Anion Gap 14 (12-20); Blood Urea Nitrogen 27 mg/dL (9-16); Calcium 9.3 mg/dL (8.4-10.2); Carbon Dioxide 41 mmol/L (22-29); Chloride 85 mmol/L (96-108); Creatinine Clr Calc Pharmacy 56.3; Estimated Glomerular Filt Rate 38; Glucose Random 262 mg/dL (60-115); Magnesium 1.4 mg/dL (1.6-2.6); Potassium 3.3 mmol/l (3.3-5.1); Sodium 137 mmol/L (135-145)
[2020-08-13 07:41] LABS: Glucose, Whole Blood 243 mg/dL (60-115)
[2020-08-13] MEDS: Magnesium Sulfate/H2O 2 GM/50 ML PIGGYBACK IV ×2 (08:00→11:10)
[2020-08-13] MEDS: 0.9 % Sodium Chloride Flush 3 ML SYRINGE IVFLUSH ×3 (08:28→21:06)
[2020-08-13] MEDS: Insulin Lispro 100 UNIT/ML 3 ML VIAL SUBCUT ×3 (08:28→17:24)
[2020-08-13] MEDS: Spironolactone 25 MG TABLET PO (08:29)
[2020-08-13] MEDS: Isosorbide Mononitrate 30 MG TAB.ER.24H PO (08:29)
[2020-08-13] MEDS: Escitalopram Oxalate 10 MG TABLET PO (11:11)
[2020-08-13] MEDS: amLODIPine Besylate 10 MG TABLET PO (11:12)
[2020-08-13] MEDS: Cholecalciferol (Vitamin D3) 25 MCG TABLET PO (11:12)
[2020-08-13] MEDS: acetaZOLAMIDE 250 MG TABLET PO ×2 (11:12→21:06)
[2020-08-13] MEDS: Aspirin Enteric Coated 81 MG TABLET.DR PO (11:12)
[2020-08-13] MEDS: Nystatin Powder 15 GM BOTTLE 1 APPL TOPICAL ×2 (11:13→21:06)
[2020-08-13] MEDS: Ketotifen Fumarate 0.025% Oph 5 ML DRPBTL 1 DROP EYE-BOTH ×2 (11:13→21:06)
[2020-08-13 11:35] LABS: Glucose, Whole Blood 302 mg/dL (60-115)
--- NOTE | 2020-08-13 12:04 | P.PNCA_ITS ---
Subjective Subjective Interval history: Feeling better. Diuresed overall 19 L. Noted to have low magnesium and potassium levels today. Also noted to have some metabolic alkalosis. No significant shortness of breath. No palpitations. She has emotional overall about her hospitalization Review of Systems Constitutional: Denies body ache(s), Denies chills, Reports difficulty sleeping and Denies fever(s) Cardiovascular: Denies chest pain at rest, Denies rapid heart rate, Denies irregular heart rhythm and Denies orthopnea Respiratory: Reports no additional respiratory complaints Reports system reviewed and no additional complaints, except as documented Physical Exam Vital Signs: Last Vital Signs Temp 99.6 F 08/13/20 11:06 Pulse 68 08/13/20 11:12 Resp 20 08/13/20 11:06 BP 132/62 08/13/20 11:12 Pulse Ox 91 L 08/13/20 11:06 Body Mass Index 55.0 Const General: cooperative, comfortable, no acute distress, alert and awake Nutritional Appearance: obese morbidly obese Orientation/consciousness: patient oriented x3 HENMT Head: Yes normal to inspection, Yes normocephalic and Yes atraumatic Neck Neck: Yes full ROM, Yes trachea midline, Yes JVD and Yes other ( difficult to assess JVD due to body habitus) Chest Chest palpation & inspection: normal inspection of the chest Resp Effort & Inspection: normal respiratory effort Auscultation: clear to auscultation bilaterally, no crackles and no rales Cardio Palpation: other ( difficult to assess PMI) Rate: regular rate Rhythm: regular rhythm Heart sounds: S1 normal heart sound present, S2 normal heart sound present and M urmur heart sound present systolic mid, soft and II/ GI Inspection: Yes Abdominal panniculus present and Yes obesity Auscultation: normal bowel sounds Skin General skin exam: no rashes or lesions noted Neuro General: patient oriented x3 and no focal motor deficits Extrem General: Yes edema ( bilateral lower extremity edema 2 to 3+) Psych Mental Status: mental status grossly normal Affect: Depressed mood present Results Labs and Meds Result diagrams: 08/07/20 04:32 08/13/20 05:29 Lab results: Laboratory Results - last 24 hr 08/12/20 08/12/20 08/12/20 06:01 13:03 16:47 Sodium Potassium Chloride Carbon Dioxide Anion Gap BUN Creatinine Estim Creat Clear Calc Estimated GFR POC Glucose 332 H 403 H* Random Glucose Estimat Average Glucose Hemoglobin A1c % Calcium Magnesium B-Natriuretic Peptide TSH 22.76 H 08/12/20 08/13/20 08/13/20 20:39 05:29 05:29 Sodium 137 Potassium 3.3 Chloride 85 L Carbon Dioxide 41 H* Anion Gap 14 BUN 27 H Creatinine 1.42 H Estim Creat Clear Calc 56.3 Estimated GFR 38 POC Glucose 345 H Random Glucose 262 H Estimat Average Glucose Hemoglobin A1c % Calcium 9.3 D Magnesium 1.4 L* B-Natriuretic Peptide TSH 08/13/20 08/13/20 08/13/20 05:29 05:29 07:36 Sodium Potassium Chloride Carbon Dioxide Anion Gap BUN Creatinine Estim Creat Clear Calc Estimated GFR POC Glucose 243 H Random Glucose Estimat Average Glucose Cancelled Hemoglobin A1c % Cancelled Calcium Magnesium B-Natriuretic Peptide 301 H TSH 08/13/20 11:31 Sodium Potassium Chloride Carbon Dioxide Anion Gap BUN Creatinine Estim Creat Clear Calc Estimated GFR POC Glucose 302 H Random Glucose Estimat Average Glucose Hemoglobin A1c % Calcium Magnesium B-Natriuretic Peptide TSH Progress Note: A&P Assessment and plan (1) Congestive heart failure: Problem details: Acute on chronic diastolic Status: Acute Assessment and Plan: diastolic heart failure exacerbation due to withdrawal of diuretic therapy at home by herself. She understands management how well. Provide CHF education material. She has developed some metabolic alkalosis as well as some renal dysfunction related to rapid diuresis. Will reduce Lasix drip to 5 mg an hour. Continue to monitor strict I&Os Q shift, a med diuresing about 2 L negative balance. Continue to follow BMP and BNP. Replace magnesium and potassium aggressively. Continue to monitor BMP and BNP. In the long run aggressive weight loss program needs to be pursued. Continue CPAP therapy. (2) Essential hypertension: Problem details: Seems well controlled. Continue Amlodipine, Metoprolol, Imdur Status: Acute (3) Aortic stenosis: Problem details: Aortic stenosis which had versus moderate. No interventions required and not reason for heart failure. Status: Acute Fall Risk Details Current Medications: Current Medications Generic Name Dose Route Start Last Admin Trade Name Freq PRN Reason Stop Dose Admin Acetaminophen 650 mg 08/07/20 13:21 08/12/20 16:28 Acetaminophen 325 Mg Tablet PO 650 mg Q6H PRN Administration Pain, Mild (Pain Scale 1-3) Acetazolamide 250 mg 08/13/20 09:00 08/13/20 11:12 Acetazolamide 250 Mg Tablet PO 250 mg BID [facility] Administration Amlodipine Besylate 10 mg 08/07/20 12:00 08/13/20 11:12 Amlodipine Besylate 10 Mg Tablet PO 10 mg DAILY@1200 [facility] Administration Protocol Aspirin 81 mg 08/07/20 12:00 08/13/20 11:12 Aspirin Enteric Coated 81 Mg Tablet.Dr PO 81 mg DAILY@1200 [facility] Administration Atorvastatin Calcium 80 mg 08/11/20 21:00 08/12/20 20:51 Atorvastatin Calcium 80 Mg Tablet PO 80 mg BEDTIME [facility] Administration Diphenhydramine HCl 25 mg 08/06/20 15:56 Diphenhydramine Hcl 25 Mg Tablet PO Q4H PRN itch Enoxaparin Sodium 30 mg 08/06/20 15:00 08/12/20 13:54 Enoxaparin Sodium 30 Mg/0.3 Ml Syringe SUBCUT 30 mg Q24H [facility] Administration Escitalopram Oxalate 10 mg 08/07/20 12:00 08/13/20 11:11 Escitalopram Oxalate 10 Mg Tablet PO 10 mg DAILY@1200 [facility] Administration Hydroxyzine HCl 10 mg 08/06/20 15:56 08/06/20 23:34 Hydroxyzine Hcl 10 Mg Tablet PO 10 mg DAILY PRN Administration anxiety Furosemide 500 mg/ IV 50 mls @ 0.5 mls/hr 08/13/20 10:47 Miscellaneous Supplies IVCONT DAILY [facility] Insulin Glargine 35 unit 08/13/20 21:00 Insulin Glargine,Hum.Rec.Anlog 100 Unit/Ml 10 Ml Vial SUBCUT BEDTIME [facility] Insulin Human Lispro 0 unit 08/12/20 21:00 08/13/20 08:28 Insulin Lispro 100 Unit/Ml 3 Ml Vial SUBCUT 08/13/20 17:24 7 unit QIDACHS [facility] Administration Protocol Isosorbide Mononitrate 30 mg 08/08/20 09:55 08/13/20 08:29 Isosorbide Mononitrate 30 Mg Tab.Er.24h PO 30 mg DAILY [facility] Administration Protocol Ketotifen Fumarate 1 drop 08/06/20 21:00 08/13/20 11:13 Ketotifen Fumarate 0.025% Oph 5 Ml Drpbtl EYE-BOTH 1 drop BID [facility] Administration Levothyroxine Sodium 175 mcg 08/07/20 06:30 08/13/20 06:29 Levothyroxine Sodium 175 Mcg Tablet PO 175 mcg DAILY@0630 [facility] Administration Loratadine 10 mg 08/06/20 15:56 Loratadine 10 Mg Tablet PO DAILY PRN Allergic Symptoms Metoprolol Succinate 100 mg 08/07/20 21:00 08/12/20 20:51 Metoprolol Succinate Er 100 Mg Tab.Er.24h PO 100 mg BEDTIME [facility] Administration Protocol Multivitamins/Minerals 1 tab 08/07/20 09:00 08/13/20 08:29 Multivitamin With Minerals Tablet PO 1 tab DAILY [facility] Administration Nystatin 1 appl 08/08/20 21:00 08/13/20 11:13 Nystatin Powder 15 Gm Bottle TOPICAL 1 appl BID [facility] Administration Protocol Pharmacy Consult 1 each 08/06/20 12:38 Consult Rx Perform Med Rec MISCELLANE ONCE PRN Consult order Sodium Chloride 3 ml 08/06/20 16:00 08/13/20 08:28 0.9 % Sodium Chloride Flush 3 Ml Syringe IVFLUSH 3 ml QSHIFT [facility] Administration Spironolactone 25 mg 08/10/20 17:00 08/13/20 08:29 Spironolactone 25 Mg Tablet PO 25 mg DAILY [facility] Administration Protocol Vitamin D 25 mcg 08/07/20 12:00 08/13/20 11:12 Cholecalciferol (Vitamin D3) 25 Mcg Tablet PO 25 mcg DAILY@1200 [facility] Administration Time Spent With Patient Time: Total time spent is greater than 50% in coordination of care (as documented) at patient's floor/unit and/or counseling patient: Time with patient: 15 - 24 minutes
[2020-08-13] MEDS: Potassium Chloride ER 20 MEQ TAB.ER.PRT PO (12:41)
[2020-08-13] MEDS: Acetaminophen 325 MG TABLET 650 MG PO ×2 (13:25→21:05)
[2020-08-13] MEDS: Enoxaparin Sodium 30 MG/0.3 ML SYRINGE SUBCUT (13:26)
[2020-08-13] MEDS: Furosemide 500 MG in Container,Empty 0 ML IVCONT (13:26)
--- NOTE | 2020-08-13 14:26 | MHC.CM.PN ---
Patient continues on IV Lasix and IV Mag. O2 at 2 liters, CPAP at night. Discharge plan is home with services from [facility]. will provide transportation. CM will continue to follow for discharge needs.
--- NOTE | 2020-08-13 14:55 | P.PNIM_ITS ---
Subjective Subjective Interval History: Feels better. Less swollen in legs. No dyspnea. Negative over 24L this admission. States her dry weight is 240 lb. Weights in our EHR are unreliable. Physical Exam Vital Signs: Vital Signs: Last Vital Signs Temp 99.6 F 08/13/20 11:06 Pulse 68 08/13/20 11:12 Resp 20 08/13/20 11:06 BP 132/62 08/13/20 11:12 Pulse Ox 91 L 08/13/20 11:06 Body Mass Index 55.0 Const: General: no acute distress Chest: Chest palpation & inspection: normal inspection of the chest Resp: Effort & Inspection: normal respiratory effort Auscultation: clear to auscultation bilaterally Cardio: Palpation: normal PMI Rate: regular rate Rhythm: regular rhythm Heart sounds: Murmur heart sound present systolic Peripheral pulses: Peripheral pulses 2+ throughout GI: Other: morbidly obese Palpation (GI): Soft to palpation and nontender : Other: Shepherd in place Neuro: General: no focal motor deficits Objective Data Current Medications Generic Name Dose Route Start Last Admin Trade Name Holaq PRN Reason Stop Dose Admin Acetaminophen 650 mg 08/07/20 13:21 08/13/20 13:25 Acetaminophen 325 Mg Tablet PO 650 mg Q6H PRN Administration Pain, Mild (Pain Scale 1-3) Acetazolamide 250 mg 08/13/20 09:00 08/13/20 11:12 Acetazolamide 250 Mg Tablet PO 250 mg BID KHARI Administration Amlodipine Besylate 10 mg 08/07/20 12:00 08/13/20 11:12 Amlodipine Besylate 10 Mg Tablet PO 10 mg DAILY@1200 [facility] Administration Protocol Aspirin 81 mg 08/07/20 12:00 08/13/20 11:12 Aspirin Enteric Coated 81 Mg Tablet.Dr PO 81 mg DAILY@1200 [facility] Administration Atorvastatin Calcium 80 mg 08/11/20 21:00 08/12/20 20:51 Atorvastatin Calcium 80 Mg Tablet PO 80 mg BEDTIME KHARI Administration Diphenhydramine HCl 25 mg 08/06/20 15:56 Diphenhydramine Hcl 25 Mg Tablet PO Q4H PRN itch Enoxaparin Sodium 30 mg 08/06/20 15:00 08/13/20 13:26 Enoxaparin Sodium 30 Mg/0.3 Ml Syringe SUBCUT 30 mg Q24H KHARI Administration Escitalopram Oxalate 10 mg 08/07/20 12:00 08/13/20 11:11 Escitalopram Oxalate 10 Mg Tablet PO 10 mg DAILY@1200 [facility] Administration Hydroxyzine HCl 10 mg 08/06/20 15:56 08/06/20 23:34 Hydroxyzine Hcl 10 Mg Tablet PO 10 mg DAILY PRN Administration anxiety Furosemide 500 mg/ IV 50 mls @ 0.5 mls/hr 08/13/20 10:47 08/13/20 13:26 Miscellaneous Supplies IVCONT 0.5 mls/hr DAILY KHARI Administration Insulin Glargine 35 unit 08/13/20 21:00 Insulin Glargine,Hum.Rec.Anlog 100 Unit/Ml 10 Ml Vial SUBCUT BEDTIME [facility] Insulin Human Lispro 0 unit 08/12/20 21:00 08/13/20 12:40 Insulin Lispro 100 Unit/Ml 3 Ml Vial SUBCUT 08/13/20 17:24 14 unit QIDACHS [facility] Administration Protocol Isosorbide Mononitrate 30 mg 08/08/20 09:55 08/13/20 08:29 Isosorbide Mononitrate 30 Mg Tab.Er.24h PO 30 mg DAILY K[facility]ARI Administration Protocol Ketotifen Fumarate 1 drop 08/06/20 21:00 08/13/20 11:13 Ketotifen Fumarate 0.025% Oph 5 Ml Drpbtl EYE-BOTH 1 drop BID KHARI Administration Levothyroxine Sodium 175 mcg 08/07/20 06:30 08/13/20 06:29 Levothyroxine Sodium 175 Mcg Tablet PO 175 mcg DAILY@0630 [facility]I Administration Loratadine 10 mg 08/06/20 15:56 Loratadine 10 Mg Tablet PO DAILY PRN Allergic Symptoms Metoprolol Succinate 100 mg 08/07/20 21:00 08/12/20 20:51 Metoprolol Succinate Er 100 Mg Tab.Er.24h PO 100 mg BEDTIME [facility] Administration Protocol Multivitamins/Minerals 1 tab 08/07/20 09:00 08/13/20 08:29 Multivitamin With Minerals Tablet PO 1 tab DAILY [facility]ARI Administration Nystatin 1 appl 08/08/20 21:00 08/13/20 11:13 Nystatin Powder 15 Gm Bottle TOPICAL 1 appl BID [facility] Administration Protocol Pharmacy Consult 1 each 08/06/20 12:38 Consult Rx Perform Med Rec MISCELLANE ONCE PRN Consult order Sodium Chloride 3 ml 08/06/20 16:00 08/13/20 08:28 0.9 % Sodium Chloride Flush 3 Ml Syringe IVFLUSH 3 ml QSHIFT [facility] Administration Spironolactone 25 mg 08/10/20 17:00 08/13/20 08:29 Spironolactone 25 Mg Tablet PO 25 mg DAILY [facility] Administration Protocol Vitamin D 25 mcg 08/07/20 12:00 08/13/20 11:12 Cholecalciferol (Vitamin D3) 25 Mcg Tablet PO 25 mcg DAILY@1200 [facility] Administration Labs CBC & Chem 7: 08/07/20 04:32 08/13/20 05:29 Labs: Laboratory Results - last 24 hr 08/12/20 08/12/20 08/13/20 16:47 20:39 05:29 Sodium 137 Potassium 3.3 Chloride 85 L Carbon Dioxide 41 H* Anion Gap 14 BUN 27 H Creatinine 1.42 H Estim Creat Clear Calc 56.3 Estimated GFR 38 POC Glucose 403 H* 345 H Random Glucose 262 H Estimat Average Glucose Hemoglobin A1c % Calcium 9.3 D Magnesium B-Natriuretic Peptide 08/13/20 08/13/20 08/13/20 05:29 05:29 05:29 Sodium Potassium Chloride Carbon Dioxide Anion Gap BUN Creatinine Estim Creat Clear Calc Estimated GFR POC Glucose Random Glucose Estimat Average Glucose Cancelled Hemoglobin A1c % Cancelled Calcium Magnesium 1.4 L* B-Natriuretic Peptide 301 H 08/13/20 08/13/20 07:36 11:31 Sodium Potassium Chloride Carbon Dioxide Anion Gap BUN Creatinine Estim Creat Clear Calc Estimated GFR POC Glucose 243 H 302 H Random Glucose Estimat Average Glucose Hemoglobin A1c % Calcium Magnesium B-Natriuretic Peptide Assessment and Plan (1) Congestive heart failure: Status: Acute (2) Anasarca: Status: Acute (3) Diabetes mellitus with hyperglycemia: Status: Acute (4) Dyslipidemia, goal LDL below 100: Status: Acute (5) Essential hypertension: Status: Acute (6) Type 2 diabetes mellitus with diabetic nephropathy: Status: Acute (7) Autoimmune thyroiditis: Status: Acute (8) Morbid obesity due to excess calories: Status: Acute Assessment and Plan: hospital d#8 60yo F with HFpEF, class 3 obesity, DM2, HTN, HLD, hypothyroidism admitted for CHF exacerbation due to ill-advised self-decrease in diuretic therapy # HFpEF, acute/chronic - now at risk of overdiuresis- decrease furosemide gtt to 5 mg/hr and hopefully switch to PO tomorrow - monitor I/O, BNP, lytes - Cardiology following # ISAÍAS, prerenal/CKD - decrease diuresis as above # hypoMg - replete # hypoK - replete # HTN - continue amlodipine + metoprolol + Imdur # DM2 - needs better glycemic control- increase Lantus + Humalog # HLD - continue statin # hypothyroidism - continue LT4 # - moderate, not contributing to her CHF # obesity - weight loss encouraged # VTE ppx - LMWH
[2020-08-13 16:03] LABS: Glucose, Whole Blood 284 mg/dL (60-115)
[2020-08-13] MEDS: Enoxaparin Sodium 40 MG/0.4 ML SYRINGE SUBCUT (17:25)
[2020-08-13 20:58] LABS: Glucose, Whole Blood 296 mg/dL (60-115)
[2020-08-13] MEDS: Atorvastatin Calcium 80 MG TABLET PO (21:05)
[2020-08-13] MEDS: Insulin Glargine,Hum.rec.anlog 100 UNIT/ML 10 ML VIAL 35 UNIT SUBCUT (21:05)
[2020-08-13] MEDS: Metoprolol Succinate ER 100 MG TAB.ER.24H PO (21:06)
[2020-08-14] VITALS (10 sets, daily range): BP systolic 111–135; BP diastolic 53–66; PULSE 59–70; RESP 18–20; TEMP 36.1–37.1; O2SAT 91–98; BMI 54.4
[2020-08-14] MEDS: Levothyroxine Sodium 175 MCG TABLET PO (05:20)
[2020-08-14] MEDS: Acetaminophen 325 MG TABLET 650 MG PO ×3 (06:28→22:15)
[2020-08-14 07:36] LABS: B Type Natriuretic Peptide 409 pg/mL (<100)
[2020-08-14 07:38] LABS: Anion Gap 13 (12-20); Blood Urea Nitrogen 29 mg/dL (9-16); Calcium 9.1 mg/dL (8.4-10.2); Carbon Dioxide 42 mmol/L (22-29); Chloride 84 mmol/L (96-108); Estimated Glomerular Filt Rate 32; Glucose Random 383 mg/dL (60-115); Potassium 3.3 mmol/l (3.3-5.1); Sodium 136 mmol/L (135-145)
[2020-08-14 07:40] LABS: Magnesium 2.1 mg/dL (1.6-2.6)
[2020-08-14 07:46] LABS: Glucose, Whole Blood 356 mg/dL (60-115)
[2020-08-14] MEDS: Spironolactone 25 MG TABLET PO (08:06)
[2020-08-14] MEDS: Isosorbide Mononitrate 30 MG TAB.ER.24H PO (08:07)
[2020-08-14] MEDS: acetaZOLAMIDE 250 MG TABLET PO ×2 (08:07→20:53)
[2020-08-14] MEDS: Ketotifen Fumarate 0.025% Oph 5 ML DRPBTL 1 DROP EYE-BOTH ×2 (08:07→20:53)
[2020-08-14] MEDS: Nystatin Powder 15 GM BOTTLE 1 APPL TOPICAL ×2 (08:07→20:53)
[2020-08-14 08:08] LABS: Estimated Average Glucose 163 mg/dL; Hemoglobin A1c % 7.3 %
[2020-08-14] MEDS: Insulin Lispro 100 UNIT/ML 3 ML VIAL SUBCUT ×4 (08:08→20:52)
[2020-08-14] MEDS: 0.9 % Sodium Chloride Flush 3 ML SYRINGE IVFLUSH ×3 (08:09→20:54)
--- NOTE | 2020-08-14 11:03 | MHC.CM.PN ---
CM met with patient at the bedside to discuss STR placement and choices since PT is recommending STR. Patient's 1st choice is [facility], 2nd is [facility] and 3rd choice is [facility]. Referrals made via allscripts. Patient will need BLS transport. CM will continue to follow patient for discharge needs.
[2020-08-14 11:51] LABS: Glucose, Whole Blood 329 mg/dL (60-115)
[2020-08-14] MEDS: Aspirin Enteric Coated 81 MG TABLET.DR PO (11:57)
[2020-08-14] MEDS: Escitalopram Oxalate 10 MG TABLET PO (11:58)
[2020-08-14] MEDS: Cholecalciferol (Vitamin D3) 25 MCG TABLET PO (11:58)
--- NOTE | 2020-08-14 15:23 | MHC.CLN ---
F/U 100% PO INTAKE DIET RX: [id number] NA-WILL PROMOTE SLOW WT LOSS MONITOR WEIGHTS CLOSELY FOLLOWING
[2020-08-14 16:11] LABS: Glucose, Whole Blood 337 mg/dL (60-115)
--- NOTE | 2020-08-14 16:11 | HO.PM.IMPN ---
Subjective Subjective Date of Service: 08/14/20 Interval History: DOS 08/14/20 Continues to improve. Negative 26.7L/26.2 kg this admission. Cr continues to rise. Diuresis held. Denies chest pain or palpitations. Edema in legs improved. LEYVA improved. Physical Exam Vital Signs: Vital Signs: Last Vital Signs Temp 97.4 F 08/14/20 15:37 Pulse 67 08/14/20 15:37 Resp 18 08/14/20 15:37 BP 116/60 08/14/20 15:37 Pulse Ox 95 08/14/20 15:37 Body Mass Index 54.4 Const: General: no acute distress Chest: Chest palpation & inspection: normal inspection of the chest Resp: Effort & Inspection: normal respiratory effort Auscultation: clear to auscultation bilaterally Cardio: Palpation: normal PMI Rate: regular rate Rhythm: regular rhythm Heart sounds: Murmur heart sound present systolic Peripheral pulses: Peripheral pulses 2+ throughout GI: Other: morbidly obese Palpation (GI): Soft to palpation and nontender : Other: Shepherd in place Neuro: General: no focal motor deficits Objective Data Current Medications Generic Name Dose Route Start Last Admin Trade Name Freq PRN Reason Stop Dose Admin Acetaminophen 650 mg 08/07/20 13:21 08/14/20 06:28 Acetaminophen 325 Mg Tablet PO 650 mg Q6H PRN Administration Pain, Mild (Pain Scale 1-3) Acetazolamide 250 mg 08/13/20 09:00 08/14/20 08:07 Acetazolamide 250 Mg Tablet PO 250 mg BID KHARI Administration Amlodipine Besylate 10 mg 08/07/20 12:00 08/14/20 12:00 Amlodipine Besylate 10 Mg Tablet PO Not Given DAILY@1200 [facility] Protocol Aspirin 81 mg 08/07/20 12:00 08/14/20 11:57 Aspirin Enteric Coated 81 Mg Tablet.Dr PO 81 mg DAILY@1200 [facility] Administration Atorvastatin Calcium 80 mg 08/11/20 21:00 08/13/20 21:05 Atorvastatin Calcium 80 Mg Tablet PO 80 mg BEDTIME K[facility]ARI Administration Diphenhydramine HCl 25 mg 08/06/20 15:56 Diphenhydramine Hcl 25 Mg Tablet PO Q4H PRN itch Enoxaparin Sodium 40 mg 08/13/20 15:30 08/13/20 17:25 Enoxaparin Sodium 40 Mg/0.4 Ml Syringe SUBCUT 40 mg Q24H KHARI Administration Escitalopram Oxalate 10 mg 08/07/20 12:00 08/14/20 11:58 Escitalopram Oxalate 10 Mg Tablet PO 10 mg DAILY@1200 [facility] Administration Hydroxyzine HCl 10 mg 08/06/20 15:56 08/06/20 23:34 Hydroxyzine Hcl 10 Mg Tablet PO 10 mg DAILY PRN Administration anxiety Insulin Glargine 40 unit 08/14/20 21:00 Insulin Glargine,Hum.Rec.Anlog 100 Unit/Ml 10 Ml Vial SUBCUT BEDTIME [facility] Insulin Human Lispro 0 unit 08/14/20 11:30 08/14/20 11:58 Insulin Lispro 100 Unit/Ml 3 Ml Vial SUBCUT 12 unit QIDACHS [facility] Administration Protocol Isosorbide Mononitrate 30 mg 08/08/20 09:55 08/14/20 08:07 Isosorbide Mononitrate 30 Mg Tab.Er.24h PO 30 mg DAILY K[facility]ARI Administration Protocol Ketotifen Fumarate 1 drop 08/06/20 21:00 08/14/20 08:07 Ketotifen Fumarate 0.025% Oph 5 Ml Drpbtl EYE-BOTH 1 drop BID KHARI Administration Levothyroxine Sodium 175 mcg 08/07/20 06:30 08/14/20 05:20 Levothyroxine Sodium 175 Mcg Tablet PO 175 mcg DAILY@0630 [facility] Administration Loratadine 10 mg 08/06/20 15:56 Loratadine 10 Mg Tablet PO DAILY PRN Allergic Symptoms Metoprolol Succinate 100 mg 08/07/20 21:00 08/13/20 21:06 Metoprolol Succinate Er 100 Mg Tab.Er.24h PO 100 mg BEDTIME [facility] Administration Protocol Multivitamins/Minerals 1 tab 08/07/20 09:00 08/14/20 08:07 Multivitamin With Minerals Tablet PO 1 tab DAILY [facility] Administration Nystatin 1 appl 08/08/20 21:00 08/14/20 08:07 Nystatin Powder 15 Gm Bottle TOPICAL 1 appl BID [facility] Administration Protocol Pharmacy Consult 1 each 08/06/20 12:38 Consult Rx Perform Med Rec MISCELLANE ONCE PRN Consult order Sodium Chloride 3 ml 08/06/20 16:00 08/14/20 08:09 0.9 % Sodium Chloride Flush 3 Ml Syringe IVFLUSH 3 ml QSHIFT [facility] Administration Spironolactone 25 mg 08/10/20 17:00 08/14/20 08:06 Spironolactone 25 Mg Tablet PO 25 mg DAILY [facility] Administration Protocol Vitamin D 25 mcg 08/07/20 12:00 08/14/20 11:58 Cholecalciferol (Vitamin D3) 25 Mcg Tablet PO 25 mcg DAILY@1200 [facility] Administration Labs CBC & Chem 7: 08/07/20 04:32 08/14/20 05:27 Labs: Laboratory Results - last 24 hr 08/13/20 08/14/20 08/14/20 20:32 05:27 05:27 Sodium 136 Potassium 3.3 Chloride 84 L Carbon Dioxide 42 H* Anion Gap 13 BUN 29 H Creatinine 1.62 H Estim Creat Clear Calc 49.0 Estimated GFR 32 POC Glucose 296 H Random Glucose 383 H* Estimat Average Glucose 163 Hemoglobin A1c % 7.3 Calcium 9.1 Magnesium B-Natriuretic Peptide 08/14/20 08/14/20 08/14/20 05:27 05:27 07:43 Sodium Potassium Chloride Carbon Dioxide Anion Gap BUN Creatinine Estim Creat Clear Calc Estimated GFR POC Glucose 356 H* Random Glucose Estimat Average Glucose Hemoglobin A1c % Calcium Magnesium 2.1 B-Natriuretic Peptide 409 H 08/14/20 08/14/20 11:40 16:05 Sodium Potassium Chloride Carbon Dioxide Anion Gap BUN Creatinine Estim Creat Clear Calc Estimated GFR POC Glucose 329 H 337 H Random Glucose Estimat Average Glucose Hemoglobin A1c % Calcium Magnesium B-Natriuretic Peptide Assessment and Plan (1) Congestive heart failure: Status: Acute (2) Anasarca: Status: Acute (3) Diabetes mellitus with hyperglycemia: Status: Acute (4) Dyslipidemia, goal LDL below 100: Status: Acute (5) Essential hypertension: Status: Acute (6) Type 2 diabetes mellitus with diabetic nephropathy: Status: Acute (7) Autoimmune thyroiditis: Status: Acute (8) Morbid obesity due to excess calories: Status: Acute Assessment and Plan: hospital d#9 60yo F with HFpEF, class 3 obesity, DM2, HTN, HLD, hypothyroidism admitted for CHF exacerbation due to ill-advised self-decrease in diuretic therapy # HFpEF, acute/chronic # ISAÍAS/CKD - hold diuresis due to worsening ISAÍAS - monitor I/O, BNP, lytes - Cardiology following # hypoMg - repleted # hypoK - repleted # HTN - continue amlodipine + metoprolol + Imdur # DM2, A1c 7.3 - Lantus + Humalog # HLD - continue statin # hypothyroidism - continue LT4 # AoS - moderate, not contributing to her CHF # obesity - weight loss encouraged # VTE ppx - LMWH
[2020-08-14] MEDS: Enoxaparin Sodium 40 MG/0.4 ML SYRINGE SUBCUT (16:31)
[2020-08-14 20:26] LABS: Glucose, Whole Blood 439 mg/dL (60-115)
[2020-08-14] MEDS: Insulin Lispro 100 UNIT/ML 3 ML VIAL 10 UNIT SUBCUT (20:52)
[2020-08-14] MEDS: Atorvastatin Calcium 80 MG TABLET PO (20:53)
[2020-08-14] MEDS: Insulin Glargine,Hum.rec.anlog 100 UNIT/ML 10 ML VIAL 40 UNIT SUBCUT (20:53)
[2020-08-14] MEDS: Metoprolol Succinate ER 100 MG TAB.ER.24H PO (20:54)
[2020-08-15] VITALS (9 sets, daily range): BP systolic 115–143; BP diastolic 51–69; PULSE 53–85; RESP 16–20; TEMP 36.7–37.1; O2SAT 93–100; BMI 54.4
[2020-08-15] MEDS: Levothyroxine Sodium 175 MCG TABLET PO (05:40)
[2020-08-15 07:07] LABS: Anion Gap 12 (12-20); B Type Natriuretic Peptide 402 pg/mL (<100); Blood Urea Nitrogen 34 mg/dL (9-16); Calcium 9.2 mg/dL (8.4-10.2); Carbon Dioxide 39 mmol/L (22-29); Chloride 88 mmol/L (96-108); Creatinine Clr Calc Pharmacy 51.5; Estimated Glomerular Filt Rate 34; Glucose Random 266 mg/dL (60-115); Magnesium 2.1 mg/dL (1.6-2.6); Potassium 3.2 mmol/l (3.3-5.1); Sodium 136 mmol/L (135-145)
[2020-08-15 07:42] LABS: Glucose, Whole Blood 264 mg/dL (60-115)
[2020-08-15] MEDS: Insulin Lispro 100 UNIT/ML 3 ML VIAL SUBCUT ×4 (07:58→22:40)
[2020-08-15] MEDS: 0.9 % Sodium Chloride Flush 3 ML SYRINGE IVFLUSH ×3 (07:58→20:02)
[2020-08-15] MEDS: acetaZOLAMIDE 250 MG TABLET PO (07:59)
[2020-08-15] MEDS: Spironolactone 25 MG TABLET PO (07:59)
[2020-08-15] MEDS: Isosorbide Mononitrate 30 MG TAB.ER.24H PO (07:59)
[2020-08-15] MEDS: Acetaminophen 325 MG TABLET 650 MG PO ×2 (08:05→20:02)
[2020-08-15] MEDS: Ketotifen Fumarate 0.025% Oph 5 ML DRPBTL 1 DROP EYE-BOTH ×2 (08:06→20:15)
[2020-08-15] MEDS: Nystatin Powder 15 GM BOTTLE 1 APPL TOPICAL ×2 (08:06→20:15)
[2020-08-15] MEDS: Potassium Chloride ER 20 MEQ TAB.ER.PRT 40 MEQ PO (08:40)
--- NOTE | 2020-08-15 09:57 | MHC.CM.PN ---
Addendum entered by Kim Burch 08/15/20 13:59: [facility] has declined, [facility] has offered a bed. CM spoke with patient who has agreed to have [facility] insurance authorization. Original Note: CM updated patient to progress of discharge. [facility] has declined and [facility] does not have any beds. Instructed still waiting to hear from [facility]. Patient states next choice will be [facility]. Referral made via allscripts. CM will continue to follow patient for discharge needs.
[2020-08-15 11:52] LABS: Glucose, Whole Blood 258 mg/dL (60-115)
[2020-08-15] MEDS: Cholecalciferol (Vitamin D3) 25 MCG TABLET PO (11:59)
[2020-08-15] MEDS: Aspirin Enteric Coated 81 MG TABLET.DR PO (11:59)
[2020-08-15] MEDS: Escitalopram Oxalate 10 MG TABLET PO (12:00)
--- NOTE | 2020-08-15 14:28 | HO.PM.IMPN ---
Subjective Subjective Date of Service: 08/15/20 Interval History: Cr improved. -27L this admission. Edema improved. Dyspnea improved. Physical Exam Vital Signs: Vital Signs: Last Vital Signs Temp 98.0 F 08/15/20 07:20 Pulse 59 08/15/20 11:37 Resp 18 08/15/20 11:37 BP 115/51 L 08/15/20 11:37 Pulse Ox 96 08/15/20 11:37 Body Mass Index 54.4 Const: General: no acute distress Chest: Chest palpation & inspection: normal inspection of the chest Resp: Effort & Inspection: normal respiratory effort Auscultation: clear to auscultation bilaterally Cardio: Palpation: normal PMI Rate: regular rate Rhythm: regular rhythm Heart sounds: Murmur heart sound present systolic Peripheral pulses: Peripheral pulses 2+ throughout GI: Other: morbidly obese Palpation (GI): Soft to palpation and nontender : Other: Shepherd in place Extremities:1+ pitting edema bilateral legs Neuro: General: no focal motor deficits Objective Data Current Medications Generic Name Dose Route Start Last Admin Trade Name Freq PRN Reason Stop Dose Admin Acetaminophen 650 mg 08/07/20 13:21 08/15/20 08:05 Acetaminophen 325 Mg Tablet PO 650 mg Q6H PRN Administration Pain, Mild (Pain Scale 1-3) Amlodipine Besylate 10 mg 08/07/20 12:00 08/15/20 12:01 Amlodipine Besylate 10 Mg Tablet PO Not Given DAILY@1200 [facility] 234 BEDS AT THE [facility] Protocol Aspirin 81 mg 08/07/20 12:00 08/15/20 11:59 Aspirin Enteric Coated 81 Mg Tablet.Dr PO 81 mg DAILY@1200 [facility]CLUDE 234 BEDS AT [facility] Administration Atorvastatin Calcium 80 mg 08/11/20 21:00 08/14/20 20:53 Atorvastatin Calcium 80 Mg Tablet PO 80 mg BEDTIME [facility] Administration Diphenhydramine HCl 25 mg 08/06/20 15:56 Diphenhydramine Hcl 25 Mg Tablet PO Q4H PRN itch Enoxaparin Sodium 40 mg 08/13/20 15:30 08/14/20 16:31 Enoxaparin Sodium 40 Mg/0.4 Ml Syringe SUBCUT 40 mg Q24H [facility]ARI Administration Escitalopram Oxalate 10 mg 08/07/20 12:00 08/15/20 12:00 Escitalopram Oxalate 10 Mg Tablet PO 10 mg DAILY@1200 [facility] INCLUDE 234 BEDS AT [facility] Administration Hydroxyzine HCl 10 mg 08/06/20 15:56 08/06/20 23:34 Hydroxyzine Hcl 10 Mg Tablet PO 10 mg DAILY PRN Administration anxiety Insulin Glargine 45 unit 08/15/20 21:00 Insulin Glargine,Hum.Rec.Anlog 100 Unit/Ml 10 Ml Vial SUBCUT BEDTIME [facility] 234 BEDS AT [facility] Insulin Human Lispro 0 unit 08/14/20 11:30 08/15/20 11:58 Insulin Lispro 100 Unit/Ml 3 Ml Vial SUBCUT 10 unit QIDACHS COUNTS INCLUDE 234 BEDS AT THE [facility] Administration Protocol Isosorbide Mononitrate 30 mg 08/08/20 09:55 08/15/20 07:59 Isosorbide Mononitrate 30 Mg Tab.Er.24h PO 30 mg DAILY [facility]CLUDE 234 BEDS AT [facility] Administration Protocol Ketotifen Fumarate 1 drop 08/06/20 21:00 08/15/20 08:06 Ketotifen Fumarate 0.025% Oph 5 Ml Drpbtl EYE-BOTH 1 drop BID [facility]CLUDE 234 BEDS AT [facility] Administration Levothyroxine Sodium 175 mcg 08/07/20 06:30 08/15/20 05:40 Levothyroxine Sodium 175 Mcg Tablet PO 175 mcg DAILY@0630 [facility]S INCLUDE 234 BEDS AT [facility] Administration Loratadine 10 mg 08/06/20 15:56 Loratadine 10 Mg Tablet PO DAILY PRN Allergic Symptoms Metoprolol Succinate 100 mg 08/07/20 21:00 08/14/20 20:54 Metoprolol Succinate Er 100 Mg Tab.Er.24h PO 100 mg BEDTIME [facility] 234 BEDS AT [facility] Administration Protocol Multivitamins/Minerals 1 tab 08/07/20 09:00 08/15/20 07:58 Multivitamin With Minerals Tablet PO 1 tab DAILY [facility]CLUDE 234 BEDS AT [facility] Administration Nystatin 1 appl 08/08/20 21:00 08/15/20 08:06 Nystatin Powder 15 Gm Bottle TOPICAL 1 appl BID [facility]CLUDE 234 BEDS AT [facility] Administration Protocol Pharmacy Consult 1 each 08/06/20 12:38 Consult Rx Perform Med Rec MISCELLANE ONCE PRN Consult order Sodium Chloride 3 ml 08/06/20 16:00 08/15/20 07:58 0.9 % Sodium Chloride Flush 3 Ml Syringe IVFLUSH 3 ml QSHIFT [facility]CLUDE 234 BEDS AT [facility] Administration Spironolactone 25 mg 08/10/20 17:00 08/15/20 07:59 Spironolactone 25 Mg Tablet PO 25 mg DAILY [facility] INCLUDE 234 BEDS AT [facility] Administration Protocol Vitamin D 25 mcg 08/07/20 12:00 08/15/20 11:59 Cholecalciferol (Vitamin D3) 25 Mcg Tablet PO 25 mcg DAILY@1200 [facility]CLUDE 234 BEDS AT [facility] Administration Labs CBC & Chem 7: 08/07/20 04:32 08/15/20 05:38 Labs: Laboratory Results - last 24 hr 08/14/20 08/14/20 08/15/20 16:05 20:20 05:38 Sodium 136 Potassium 3.2 L Chloride 88 L Carbon Dioxide 39 H Anion Gap 12 BUN 34 H Creatinine 1.54 H Estim Creat Clear Calc 51.5 Estimated GFR 34 POC Glucose 337 H 439 H* Random Glucose 266 H Calcium 9.2 Magnesium 2.1 B-Natriuretic Peptide 08/15/20 08/15/20 08/15/20 05:38 07:26 11:39 Sodium Potassium Chloride Carbon Dioxide Anion Gap BUN Creatinine Estim Creat Clear Calc Estimated GFR POC Glucose 264 H 258 H Random Glucose Calcium Magnesium B-Natriuretic Peptide 402 H Assessment and Plan (1) Congestive heart failure: Status: Acute (2) Anasarca: Status: Acute (3) Diabetes mellitus with hyperglycemia: Status: Acute (4) Dyslipidemia, goal LDL below 100: Status: Acute (5) Essential hypertension: Status: Acute (6) Type 2 diabetes mellitus with diabetic nephropathy: Status: Acute (7) Autoimmune thyroiditis: Status: Acute (8) Morbid obesity due to excess calories: Status: Acute Assessment and Plan: hospital d#10 60yo F with HFpEF, class 3 obesity, DM2, HTN, HLD, hypothyroidism admitted for CHF exacerbation due to ill-advised self-decrease in diuretic therapy # HFpEF, acute/chronic # ISAÍAS/CKD - continue to hold diuresis pending further improvement in SCr - monitor I/O, BNP, lytes - Cardiology following # hypoMg - repleted # hypoK - replete, recheck in am # HTN - continue amlodipine + metoprolol + Imdur # DM2, A1c 7.3, with hyperglycemia - increase Lantus + Humalog # HLD - continue statin # hypothyroidism - continue LT4 # AoS - moderate, not contributing to her CHF # obesity - weight loss encouraged # VTE ppx - LMWH # dispo - anticipate STR possibly tomorrow
[2020-08-15] MEDS: Enoxaparin Sodium 40 MG/0.4 ML SYRINGE SUBCUT (15:32)
[2020-08-15 17:01] LABS: Glucose, Whole Blood 302 mg/dL (60-115)
[2020-08-15] MEDS: Atorvastatin Calcium 80 MG TABLET PO (20:03)
[2020-08-15] MEDS: Metoprolol Succinate ER 100 MG TAB.ER.24H PO (20:03)
[2020-08-15] MEDS: Insulin Glargine,Hum.rec.anlog 100 UNIT/ML 10 ML VIAL 45 UNIT SUBCUT (22:41)
[2020-08-16 03:55] VITALS: BP 128/57; PULSE 57; RESP 18; TEMP 37; O2SAT 96
[2020-08-16 04:53] VITALS: BMI 54.6
[2020-08-16] MEDS: Levothyroxine Sodium 175 MCG TABLET PO (06:04)
[2020-08-16 07:35] VITALS: BP 124/59; PULSE 59; RESP 18; TEMP 36.9; O2SAT 93
[2020-08-16 07:37] LABS: B Type Natriuretic Peptide 248 pg/mL (<100)
[2020-08-16 07:42] LABS: Glucose, Whole Blood 259 mg/dL (60-115)
[2020-08-16 08:00] LABS: Anion Gap 14 (12-20); Blood Urea Nitrogen 36 mg/dL (9-16); Calcium 8.9 mg/dL (8.4-10.2); Carbon Dioxide 34 mmol/L (22-29); Chloride 92 mmol/L (96-108); Estimated Glomerular Filt Rate 38; Glucose Random 272 mg/dL (60-115); Magnesium 2.1 mg/dL (1.6-2.6); Potassium 3.3 mmol/l (3.3-5.1); Sodium 137 mmol/L (135-145)
[2020-08-16] MEDS: Insulin Lispro 100 UNIT/ML 3 ML VIAL SUBCUT ×4 (08:32→21:18)
[2020-08-16] MEDS: 0.9 % Sodium Chloride Flush 3 ML SYRINGE IVFLUSH ×3 (08:33→21:30)
[2020-08-16] MEDS: Isosorbide Mononitrate 30 MG TAB.ER.24H PO (08:33)
[2020-08-16] MEDS: Spironolactone 25 MG TABLET PO (08:35)
[2020-08-16] MEDS: Ketotifen Fumarate 0.025% Oph 5 ML DRPBTL 1 DROP EYE-BOTH ×2 (08:42→21:29)
[2020-08-16] MEDS: Acetaminophen 325 MG TABLET 650 MG PO ×2 (08:43→21:17)
[2020-08-16] MEDS: Nystatin Powder 15 GM BOTTLE 1 APPL TOPICAL ×2 (08:43→21:29)
--- NOTE | 2020-08-16 10:07 | MHC.CM.PN ---
CM met with patient re: discharge plan. CM instructed patient [facility] is offering a bed but they are out of network with patient's [facility] insurance. Patient's next choice is [facility] which does have a contract with her insurance. referral made per patient request.
[2020-08-16 11:24] VITALS: BP 139/61; PULSE 63; RESP 20; TEMP 37.1; O2SAT 96
[2020-08-16] MEDS: Cholecalciferol (Vitamin D3) 25 MCG TABLET PO (11:42)
[2020-08-16] MEDS: Escitalopram Oxalate 10 MG TABLET PO (11:42)
[2020-08-16] MEDS: Aspirin Enteric Coated 81 MG TABLET.DR PO (11:42)
[2020-08-16] MEDS: amLODIPine Besylate 10 MG TABLET PO (11:42)
[2020-08-16 11:45] LABS: Glucose, Whole Blood 285 mg/dL (60-115)
--- NOTE | 2020-08-16 13:44 | PM.DS ---
DS: Providers Provider Date of admission: 08/06/20 13:14 Primary care physician: Fatmata Sky MD Consults: 08/06/20 14:42 Consult to Cardiology Routine Consulting Provider: Agapito Anthony Reason for consultation: HEART FAILURE Has provider been notified: Yes 08/06/20 16:45 Consult Respiratory Therapy Routine Reason for consultation: TO. BIPAP AT HOME DS: Diagnosis Discharge Diagnosis (1) Congestive heart failure: Status: Acute (2) Anasarca: Status: Acute (3) Diabetes mellitus with hyperglycemia: Status: Acute (4) Dyslipidemia, goal LDL below 100: Status: Acute (5) Essential hypertension: Status: Acute (6) Type 2 diabetes mellitus with diabetic nephropathy: Status: Acute (7) Morbid obesity due to excess calories: Status: Acute (8) Acute on chronic heart failure with preserved ejection fraction (HFpEF): Status: Acute (9) Acute on chronic kidney failure: Status: Acute (10) Hypomagnesemia: Status: Acute (11) Hypokalemia: Status: Acute DS: Medications Discharge Medications Home Medications: Home Medications Medication Instructions Recorded Confirmed Cerovite Senior 1 tab PO DAILY 08/06/20 08/06/20 Humalog KwikPen Insulin 18 unit SUBCUT TIDAC 08/06/20 08/06/20 Toujeo Max U-300 SoloStar 45 unit SUBCUT DAILY 08/06/20 08/06/20 Trulicity 1.5 mg SUBCUT QWEEK 08/06/20 08/06/20 amlodipine 10 mg PO DAILY@1200 08/06/20 08/06/20 aspirin 81 mg PO DAILY@1200 08/06/20 08/06/20 cholecalciferol (vitamin D3) 25 mcg PO DAILY@1200 08/06/20 08/06/20 diphenhydramine HCl [Banophen] 25 mg PO Q4-6H PRN 08/06/20 08/06/20 escitalopram oxalate 10 mg PO DAILY@1200 08/06/20 08/06/20 hydroxyzine HCl 10 mg PO DAILY PRN 08/06/20 08/06/20 ketotifen fumarate 1 drp OPHTHALMIC (EYE) BID 08/06/20 08/06/20 levothyroxine 175 mcg PO QAM 08/06/20 08/06/20 loratadine 10 mg PO DAILY PRN 08/06/20 08/06/20 rosuvastatin 40 mg PO BEDTIME 08/06/20 08/06/20 Previous Rx's Medication Instructions Recorded furosemide 40 mg PO BID #60 tab 08/16/20 isosorbide mononitrate 30 mg PO DAILY #30 tab 08/16/20 metoprolol succinate 100 mg PO BEDTIME #30 tab 08/16/20 spironolactone 25 mg PO DAILY #30 tab 08/16/20 DS: Summary Hospital Course Hospital Course: From admission history and physical, 08/06/20, by hospitalist Femi Elliott: 60 year female with class 3 obesity BMI 45, Diabetes, HTN, HLD, hypothyroidism, heart failure no prior echo report. She presents today ED with shortness of breath of 1 week during and is progressively worsening. Her symptoms are more prominent with exertion. She has PND and orthopnea. She had noted increased weight and leg edema concurent with her Lasix been cut down from 20 to 10. She has no fever, no cough, and no travel and no covid exposure--Terry virus is pending. Of note has some swelling and redness around eyes for weeks and has been treated for allergies She was admitted to the [facility] [place]. SARS-CoV2 PCR was negative. TTE showed diastolic dysfunction. she has moderate aortic stenosis but this was not thought to be contributing to her CHF exacerbation. She was diuresed with IV furosemide and ended up requiring continuous infusion. Magnesium and potassium were repleted. She diuresed a total of -29 L during the admission. Diuresis was held when she developed a mild acute kidney injury superimposed on chronic kidney disease stage 3. Upon discharge, furosemide will be increased to 40 mg b.i.d.; spironolactone 25 mg daily plus isosorbide mononitrate 30 mg daily were added. She will follow up with Cardiology in 2 weeks and repeat laboratory studies [BNP, BMP, magnesium] in 1 week were ordered. Weight loss was counseled. Time Spent with Patient Time attestation: Total time spent providing and/or coordinating discharge services: 45 Physical Exam Vital Signs: Vital Signs: Vital Signs Temperature 98.3 F 08/17/20 08:00 Pulse Rate 63 08/17/20 08:12 Respiratory Rate 20 08/17/20 08:00 Blood Pressure 131/69 08/17/20 08:12 Pulse Oximetry 94 08/17/20 08:00 Const: General: no acute distress Chest: Chest palpation & inspection: normal inspection of the chest Resp: Effort & Inspection: normal respiratory effort Auscultation: clear to auscultation bilaterally Cardio: Palpation: normal PMI Rate: regular rate Rhythm: regular rhythm Heart sounds: Murmur heart sound present systolic Peripheral pulses: Peripheral pulses 2+ throughout GI: Other: morbidly obese Palpation (GI): Soft to palpation and nontender Extremities:1+ pitting edema bilateral legs Neuro: General: no focal motor deficits DS: Data Data Completed and Pending Labs on day of discharge: Laboratory Results - last 24 hr 08/16/20 08/16/20 08/16/20 11:26 14:00 16:11 Sodium Potassium Chloride Carbon Dioxide Anion Gap BUN Creatinine Estim Creat Clear Calc Estimated GFR POC Glucose 285 H 269 H Random Glucose Calcium Magnesium B-Natriuretic Peptide Coronavirus (PCR) NEGATIVE Influenza Type A (PCR) NEGATIVE Influenza Type B (PCR) NEGATIVE RSV RNA Qual (PCR) NEGATIVE 08/16/20 08/17/20 08/17/20 21:07 07:42 09:15 Sodium 137 Potassium 3.5 Chloride 95 L Carbon Dioxide 31 H Anion Gap 15 BUN 34 H Creatinine 1.40 Estim Creat Clear Calc 56.5 Estimated GFR 38 POC Glucose 311 H 226 H Random Glucose 258 H Calcium 8.6 Magnesium B-Natriuretic Peptide Coronavirus (PCR) Influenza Type A (PCR) Influenza Type B (PCR) RSV RNA Qual (PCR) 08/17/20 08/17/20 09:15 09:15 Sodium Potassium Chloride Carbon Dioxide Anion Gap BUN Creatinine Estim Creat Clear Calc Estimated GFR POC Glucose Random Glucose Calcium Magnesium 1.8 B-Natriuretic Peptide 289 H Coronavirus (PCR) Influenza Type A (PCR) Influenza Type B (PCR) RSV RNA Qual (PCR) ITS Impressions Chest X-Ray 08/06/20 11:34 IMPRESSION: Cardiomegaly with mild CHF. Moderate opacity right lung base suggestive of effusion with underlying infiltrate/atelectasis is not excluded. These are new findings since 01/31/2018. TTE 08/07/20 - The left ventricular systolic function is hyperdynamic. The visually estimated ejection fraction is between 65-70%. - E/E prime ratio is >15, consistent with elevated filling pressures. - The left atrium is moderately dilated. - There is mild to moderate aortic valve stenosis (gradients may have been underestimated). - PASP = 44 mm Hg + Right atrial pressure. Discharge Plan Discharge Anticipated Discharge Date/Time: 08/16/20 13:32 Patient Disposition: [facility] Referrals: Agapito Anthony MD [Physician] - Fatmata Sky MD [Primary Care Provider] - Discharge Medications: New isosorbide mononitrate 30 mg Tablet Extended Release 24 Hr 30 mg PO DAILY Qty: 30 RF: 0 spironolactone 25 mg Tablet 25 mg PO DAILY Qty: 30 RF: 0 furosemide 40 mg tablet 40 mg PO BID Qty: 60 RF: 0 metoprolol succinate 100 mg Tablet Extended Release 24 Hr 100 mg PO BEDTIME Qty: 30 RF: 0 Continued levothyroxine 175 mcg tablet 175 mcg PO QAM RF: 0 ketotifen fumarate 0.025 % (0.035 %) drops 1 drp ophthalmic (eye) BID RF: 0 aspirin 81 mg tablet,delayed release (DR/EC) 81 mg PO DAILY@1200 RF: 0 amlodipine 10 mg tablet 10 mg PO DAILY@1200 RF: 0 diphenhydramine HCl [Banophen] 25 mg capsule 25 mg PO Q4-6H PRN (Reason: itch) RF: 0 hydroxyzine HCl 10 mg tablet 10 mg PO DAILY PRN (Reason: anxiety) RF: 0 loratadine 10 mg tablet 10 mg PO DAILY PRN (Reason: Allergic Symptoms) RF: 0 escitalopram oxalate 10 mg tablet 10 mg PO DAILY@1200 RF: 0 rosuvastatin 40 mg tablet 40 mg PO BEDTIME RF: 0 cholecalciferol (vitamin D3) 25 mcg (1,000 unit) tablet 25 mcg PO DAILY@1200 RF: 0 Trulicity 1.5 mg/0.5 mL pen injector 1.5 mg subcut QWEEK RF: 0 Humalog KwikPen Insulin 200 unit/mL (3 mL) insulin pen 18 unit subcut TIDAC RF: 0 Toujeo Max U-300 SoloStar 300 unit/mL (3 mL) insulin pen 45 unit subcut DAILY RF: 0 Cerovite Senior Tablet 1 tab PO DAILY RF: 0 Discontinued metoprolol succinate 200 mg tablet extended release 24 hr 200 mg PO BEDTIME RF: 0 furosemide 20 mg tablet 20 mg PO DAILY@1200 RF: 0 Discharge Orders: Discharge Order (Routine); Ordered 08/17/20 Ordered By: Roque Bowser Diet: diabetic diet and low salt diet Activity on Discharge: As tolerated Patient Instructions: Heart Failure (ED) Other Ambulatory Orders: Basic Metabolic Panel (Routine) Timeframe: 1 Week Facility: [facility] - Location: Laboratory Ordered By: Roque Bowser B Type Natriuretic Peptide (Routine) Timeframe: 1 Week Facility: [facility] - Location: Laboratory Ordered By: Roque Bowser Magnesium (Routine) Timeframe: 1 Week Facility: [facility] - Location: Laboratory Ordered By: Roque Bowser Visit Report Forms: Patient Portal Discharge page Care Plan Goals: relief of shortness of breath and leg swelling Health Concerns: CHF, obesity Plan of Treatment: increase furosemide to 40 mg twice daily start spironolactone 25 mg once daily start Imdur 30 mg once daily decrease metoprolol succinate to 100 mg once daily restrict sodium to 2000 mg daily weigh yourself daily follow up with Cardiology in 2 weeks
[2020-08-16 15:08] LABS: Influenza A PCR NEGATIVE (Negative); Influenza B PCR NEGATIVE (Negative); Resp Syncy Virus RNA Qual PCR NEGATIVE (Negative); SARS COV2 PCR INHOUSE NEGATIVE (Negative)
[2020-08-16 15:24] VITALS: BP 120/80; PULSE 64; RESP 20; TEMP 36.8; O2SAT 95
--- NOTE | 2020-08-16 15:47 | P.PNIM_ITS ---
Subjective Subjective Date of Service: 08/16/20 Interval History: SCr improved No new complaints Feels much less dyspneic -29L this admission Physical Exam Vital Signs: Vital Signs: Last Vital Signs Temp 98.3 F 08/16/20 15:24 Pulse 64 08/16/20 15:24 Resp 20 08/16/20 15:24 BP 120/80 08/16/20 15:24 Pulse Ox 95 08/16/20 15:24 Body Mass Index 54.6 Const: General: no acute distress Chest: Chest palpation & inspection: normal inspection of the chest Resp: Effort & Inspection: normal respiratory effort Auscultation: clear to auscultation bilaterally Cardio: Palpation: normal PMI Rate: regular rate Rhythm: regular rhythm Heart sounds: Murmur heart sound present systolic Peripheral pulses: Peripheral pulses 2+ throughout GI: Other: morbidly obese Palpation (GI): Soft to palpation and nontender : Other: Shepherd in place Extremities:1+ pitting edema bilateral legs Neuro: General: no focal motor deficits Objective Data Current Medications Generic Name Dose Route Start Last Admin Trade Name Freq PRN Reason Stop Dose Admin Acetaminophen 650 mg 08/07/20 13:21 08/16/20 08:43 Acetaminophen 325 Mg Tablet PO 650 mg Q6H PRN Administration Pain, Mild (Pain Scale 1-3) Amlodipine Besylate 10 mg 08/07/20 12:00 08/16/20 11:42 Amlodipine Besylate 10 Mg Tablet PO 10 mg DAILY@1200 [facility] Administration Protocol Aspirin 81 mg 08/07/20 12:00 08/16/20 11:42 Aspirin Enteric Coated 81 Mg Tablet.Dr PO 81 mg DAILY@1200 [facility] Administration Atorvastatin Calcium 80 mg 08/11/20 21:00 08/15/20 20:03 Atorvastatin Calcium 80 Mg Tablet PO 80 mg BEDTIME [facility] Administration Diphenhydramine HCl 25 mg 08/06/20 15:56 Diphenhydramine Hcl 25 Mg Tablet PO Q4H PRN itch Enoxaparin Sodium 40 mg 08/13/20 15:30 08/15/20 15:32 Enoxaparin Sodium 40 Mg/0.4 Ml Syringe SUBCUT 40 mg Q24H [facility] Administration Escitalopram Oxalate 10 mg 08/07/20 12:00 08/16/20 11:42 Escitalopram Oxalate 10 Mg Tablet PO 10 mg DAILY@1200 [facility] Administration Hydroxyzine HCl 10 mg 08/06/20 15:56 08/06/20 23:34 Hydroxyzine Hcl 10 Mg Tablet PO 10 mg DAILY PRN Administration anxiety Insulin Glargine 45 unit 08/15/20 21:00 08/15/20 22:41 Insulin Glargine,Hum.Rec.Anlog 100 Unit/Ml 10 Ml Vial SUBCUT 45 unit BEDTIME [facility] Administration Insulin Human Lispro 0 unit 08/14/20 11:30 08/16/20 11:43 Insulin Lispro 100 Unit/Ml 3 Ml Vial SUBCUT 10 unit QIDACHS [facility] Administration Protocol Isosorbide Mononitrate 30 mg 08/08/20 09:55 08/16/20 08:33 Isosorbide Mononitrate 30 Mg Tab.Er.24h PO 30 mg DAILY [facility] Administration Protocol Ketotifen Fumarate 1 drop 08/06/20 21:00 08/16/20 08:42 Ketotifen Fumarate 0.025% Oph 5 Ml Drpbtl EYE-BOTH 1 drop BID [facility] Administration Levothyroxine Sodium 175 mcg 08/07/20 06:30 08/16/20 06:04 Levothyroxine Sodium 175 Mcg Tablet PO 175 mcg DAILY@0630 [facility] Administration Loratadine 10 mg 08/06/20 15:56 Loratadine 10 Mg Tablet PO DAILY PRN Allergic Symptoms Metoprolol Succinate 100 mg 08/07/20 21:00 08/15/20 20:03 Metoprolol Succinate Er 100 Mg Tab.Er.24h PO 100 mg BEDTIME [facility] Administration Protocol Multivitamins/Minerals 1 tab 08/07/20 09:00 08/16/20 08:33 Multivitamin With Minerals Tablet PO 1 tab DAILY [facility] Administration Nystatin 1 appl 08/08/20 21:00 08/16/20 08:43 Nystatin Powder 15 Gm Bottle TOPICAL 1 appl BID [facility] Administration Protocol Pharmacy Consult 1 each 08/06/20 12:38 Consult Rx Perform Med Rec MISCELLANE ONCE PRN Consult order Sodium Chloride 3 ml 08/06/20 16:00 08/16/20 08:33 0.9 % Sodium Chloride Flush 3 Ml Syringe IVFLUSH 3 ml QSHIFT [facility] Administration Spironolactone 25 mg 08/10/20 17:00 08/16/20 08:35 Spironolactone 25 Mg Tablet PO 25 mg DAILY [facility] Administration Protocol Vitamin D 25 mcg 08/07/20 12:00 08/16/20 11:42 Cholecalciferol (Vitamin D3) 25 Mcg Tablet PO 25 mcg DAILY@1200 [facility] Administration Labs CBC & Chem 7: 08/07/20 04:32 08/16/20 05:38 Labs: Laboratory Results - last 24 hr 08/15/20 08/16/20 08/16/20 16:49 05:38 05:38 Sodium 137 Potassium 3.3 Chloride 92 L Carbon Dioxide 34 H Anion Gap 14 BUN 36 H Creatinine 1.42 H Estim Creat Clear Calc 56.0 Estimated GFR 38 POC Glucose 302 H Random Glucose 272 H Calcium 8.9 Magnesium 2.1 B-Natriuretic Peptide 248 H Coronavirus (PCR) Influenza Type A (PCR) Influenza Type B (PCR) RSV RNA Qual (PCR) 08/16/20 08/16/20 08/16/20 07:38 11:26 14:00 Sodium Potassium Chloride Carbon Dioxide Anion Gap BUN Creatinine Estim Creat Clear Calc Estimated GFR POC Glucose 259 H 285 H Random Glucose Calcium Magnesium B-Natriuretic Peptide Coronavirus (PCR) NEGATIVE Influenza Type A (PCR) NEGATIVE Influenza Type B (PCR) NEGATIVE RSV RNA Qual (PCR) NEGATIVE Assessment and Plan (1) Congestive heart failure: Status: Acute (2) Anasarca: Status: Acute (3) Diabetes mellitus with hyperglycemia: Status: Acute (4) Dyslipidemia, goal LDL below 100: Status: Acute (5) Essential hypertension: Status: Acute (6) Type 2 diabetes mellitus with diabetic nephropathy: Status: Acute (7) Autoimmune thyroiditis: Status: Acute (8) Morbid obesity due to excess calories: Status: Acute Assessment and Plan: hospital d#11 60yo F with HFpEF, class 3 obesity, DM2, HTN, HLD, hypothyroidism admitted for CHF exacerbation due to ill-advised self-decrease in diuretic therapy # HFpEF, acute/chronic # ISAÍAS/CKD - resume furosemide - also on spironolactone + Imdur as per Cardiology - outpt Cardiology f/u and repeat labs in 1 wk [BNP, BMP, Mg] # hypoMg - repleted # hypoK - repleted # HTN - continue amlodipine + metoprolol + Imdur + spironolactone # DM2, A1c 7.3, with hyperglycemia - increased Lantus + Humalog # HLD - continue statin # hypothyroidism - continue LT4 # AoS - moderate, not contributing to her CHF # obesity - weight loss encouraged # VTE ppx - LMWH # dispo - awaiting authorization for STR
--- NOTE | 2020-08-16 16:03 | MHC.CM.PN ---
Insurance auth not obtained today. Discharge will be pushed to tomorrow. MD, nurse and patient made aware.
[2020-08-16 16:24] LABS: Glucose, Whole Blood 269 mg/dL (60-115)
[2020-08-16] MEDS: Enoxaparin Sodium 40 MG/0.4 ML SYRINGE SUBCUT (16:56)
[2020-08-16] MEDS: Furosemide 40 MG TABLET PO (16:56)
[2020-08-16 19:58] VITALS: BP 118/51; PULSE 64; RESP 20; TEMP 36.4; O2SAT 95
[2020-08-16 21:11] LABS: Glucose, Whole Blood 311 mg/dL (60-115)
[2020-08-16 21:17] VITALS: BP 139/65; PULSE 62
[2020-08-16] MEDS: Atorvastatin Calcium 80 MG TABLET PO (21:17)
[2020-08-16] MEDS: Metoprolol Succinate ER 100 MG TAB.ER.24H PO (21:17)
[2020-08-16] MEDS: Insulin Glargine,Hum.rec.anlog 100 UNIT/ML 10 ML VIAL 45 UNIT SUBCUT (21:18)
[2020-08-17] VITALS (7 sets, daily range): BP systolic 112–131; BP diastolic 45–69; PULSE 59–67; RESP 18–20; TEMP 36.3–36.8; O2SAT 94–100; BMI 54.2
[2020-08-17] MEDS: Levothyroxine Sodium 175 MCG TABLET PO (06:23)
[2020-08-17 07:50] LABS: Glucose, Whole Blood 226 mg/dL (60-115)
[2020-08-17] MEDS: Spironolactone 25 MG TABLET PO (08:12)
[2020-08-17] MEDS: Isosorbide Mononitrate 30 MG TAB.ER.24H PO (08:12)
[2020-08-17] MEDS: Insulin Lispro 100 UNIT/ML 3 ML VIAL SUBCUT ×2 (08:12→12:04)
[2020-08-17] MEDS: 0.9 % Sodium Chloride Flush 3 ML SYRINGE IVFLUSH (08:13)
[2020-08-17] MEDS: Furosemide 40 MG TABLET PO (08:13)
[2020-08-17] MEDS: Acetaminophen 325 MG TABLET 650 MG PO (08:16)
[2020-08-17] MEDS: Nystatin Powder 15 GM BOTTLE 1 APPL TOPICAL (08:18)
[2020-08-17] MEDS: Ketotifen Fumarate 0.025% Oph 5 ML DRPBTL 1 DROP EYE-BOTH (08:18)
[2020-08-17 10:09] LABS: Anion Gap 15 (12-20); Blood Urea Nitrogen 34 mg/dL (9-16); Calcium 8.6 mg/dL (8.4-10.2); Carbon Dioxide 31 mmol/L (22-29); Chloride 95 mmol/L (96-108); Creatinine Clr Calc Pharmacy 56.5; Estimated Glomerular Filt Rate 38; Glucose Random 258 mg/dL (60-115); Potassium 3.5 mmol/l (3.3-5.1); Sodium 137 mmol/L (135-145)
[2020-08-17 10:10] LABS: Magnesium 1.8 mg/dL (1.6-2.6)
[2020-08-17 10:14] LABS: B Type Natriuretic Peptide 289 pg/mL (<100)
[2020-08-17 11:41] LABS: Glucose, Whole Blood 268 mg/dL (60-115)
--- NOTE | 2020-08-17 11:52 | MHC.CM.PN ---
Patient will be discharge to [facility] at 2pm via BLS transport. Patient, nurse and unit sec made aware.
[2020-08-17] MEDS: amLODIPine Besylate 10 MG TABLET PO (12:03)
[2020-08-17] MEDS: Escitalopram Oxalate 10 MG TABLET PO (12:04)
[2020-08-17] MEDS: Cholecalciferol (Vitamin D3) 25 MCG TABLET PO (12:04)
[2020-08-17] MEDS: Aspirin Enteric Coated 81 MG TABLET.DR PO (12:04)
--- NOTE | 2020-08-17 12:40 | MHC.INPTTRAN ---
patient admitted 08/06 after experiencing shortness of breath x1 week with orthopnea and increase leg edema after her home lasix was decreased. Patient was admitted to [facility] [place], diuresed with IV lasix then transitioned to POand plan to continue po lasix and spirnalactone on discharge. Pt will also follow up with cardio in 2 weeks. Pt was seen by phsical therapy who recommended, ST rehab for mobilty/strength. Pt comes from home with her and states she ambulates with a cane at home. She has been OOB into the chair with a walker and 1 assist. Pt is alert and oriented x 3, resp even and unlabored, lungs clear/diminished throughout. pt is also a diabetic, POC's have been elevated in the 200's. Pt also has a stage 2 pressure sore on her right lower buttock.
== END 2020-08-17 14:32 | disposition skilled nursing facility (03) | DRG 291 ==
LOC: HO.ED 12:43 → HO.IMC 13:35
PROVIDERS: Admitting Provider Internal Medicine; Emergency Provider Emergency Medicine; PCP Student in an Organized Health Care Education/Training Program; Visit Provider Family Medicine
DX: I13.0 Hypertensive heart and chronic kidney disease with heart failure and stage 1 through stage 4 chronic kidney disease, or unspecified chronic kidney disease (principal); I50.33 Acute on chronic diastolic (congestive) heart failure; Z68.42 Body mass index [BMI] 45.0-49.9, adult; N17.9 Acute kidney failure, unspecified; E66.01 Morbid (severe) obesity due to excess calories; E11.42 Type 2 diabetes mellitus with diabetic polyneuropathy; E11.65 Type 2 diabetes mellitus with hyperglycemia; F32.9 Major depressive disorder, single episode, unspecified; E78.5 Hyperlipidemia, unspecified; E11.22 Type 2 diabetes mellitus with diabetic chronic kidney disease; N18.9 Chronic kidney disease, unspecified; I35.0 Nonrheumatic aortic (valve) stenosis; E06.3 Autoimmune thyroiditis; T50.2X6A Underdosing of carbonic-anhydrase inhibitors, benzothiadiazides and other diuretics, initial encounter; E83.42 Hypomagnesemia; E87.6 Hypokalemia; Y92.9 Unspecified place or not applicable; Z20.828 Contact with and (suspected) exposure to other viral communicable diseases; Z23 Encounter for immunization; Z79.82 Long term (current) use of aspirin; Z79.4 Long term (current) use of insulin; Z79.890 Hormone replacement therapy; Z79.899 Other long term (current) drug therapy
CPT/HCPCS: 0241U; 36415; 36600; 71045; 80048; 80076; 82803; 82947; 83036; 83735; 83880; 84443; 84484; 85025; 90686; 93005; 93306; 94640; 94660; 96374; 97110; 97116; 97162; 99225; 99283; 99291; C1758; J1650; J1940; J3475; U0003

== ENCOUNTER → 2020-08-29 13:56 | Outpatient (BNVA) | payer MEDICARE, MEDICAID, SELFPAY | PROVIDERS: PCP Student in an Organized Health Care Education/Training Program; Visit Provider Internal Medicine Cardiovascular Disease | DX: I50.32 Chronic diastolic (congestive) heart failure (principal); I35.0 Nonrheumatic aortic (valve) stenosis; N18.9 Chronic kidney disease, unspecified; Z79.899 Other long term (current) drug therapy | CPT/HCPCS: 93005; 99212 ==

== ENCOUNTER → 2020-10-18 08:56 | Outpatient (BNVA) | payer MEDICARE, MEDICAID, SELFPAY | PROVIDERS: PCP Student in an Organized Health Care Education/Training Program; Visit Provider Nurse Practitioner Gerontology | DX: E11.65 Type 2 diabetes mellitus with hyperglycemia (principal); E11.21 Type 2 diabetes mellitus with diabetic nephropathy; Z79.4 Long term (current) use of insulin; E03.8 Other specified hypothyroidism; E06.3 Autoimmune thyroiditis; I10 Essential (primary) hypertension; E78.5 Hyperlipidemia, unspecified | CPT/HCPCS: Q3014 ==

== ENCOUNTER 2020-10-29 12:31 | Outpatient (REF) | payer MEDICARE, MEDICAID, SELFPAY ==
[2020-10-29 16:46] LABS: Alanine Aminotransferase 14 U/L (0-31); Albumin Level 4.6 g/dL (3.5-5.0); Alkaline Phosphatase 49 U/L (39-117); Anion Gap 14 (12-20); Aspartate Amino Transferase 19 U/L (5-31); Bilirubin Total 0.7 mg/dL (0.0-1.0); Blood Urea Nitrogen 35 mg/dL (9-16); Calcium 9.9 mg/dL (8.4-10.2); Carbon Dioxide 29 mmol/L (22-29); Chloride 101 mmol/L (96-108); Cholesterol 121 mg/dL; Estimated Glomerular Filt Rate 40; Glucose Fasting 211 mg/dL (60-99); HDL Cholesterol 33 mg/dL; LDL Cholesterol Calculated 48 mg/dl; Magnesium 1.9 mg/dL (1.6-2.6); Potassium 4.3 mmol/l (3.3-5.1); Sodium 140 mmol/L (135-145); Triglycerides 202 mg/dL
[2020-10-29 16:50] LABS: B Type Natriuretic Peptide 187 pg/mL (<100)
[2020-10-29 16:52] LABS: Creatinine Urine 49.23 mg/dL; Microalbum/Creatinine Ratio Ur 343.2 ug/mg cr
[2020-10-29 17:08] LABS: Thyroid Stimulating Hormone 7.56 uIU/mL (0.32-4.0)
[2020-10-30 11:33] LABS: LDL Cholesterol Direct 54 mg/dL (<100)
== END 2020-10-29 12:32 | disposition home or self-care (01) ==
LOC: HO.HMGCLDS 12:31
PROVIDERS: Family Medicine; Absent Provider Nurse Practitioner Gerontology; PCP Student in an Organized Health Care Education/Training Program; Visit Provider Internal Medicine Cardiovascular Disease
DX: I50.30 Unspecified diastolic (congestive) heart failure (principal); I35.0 Nonrheumatic aortic (valve) stenosis; E11.65 Type 2 diabetes mellitus with hyperglycemia; E03.8 Other specified hypothyroidism; Z79.899 Other long term (current) drug therapy
CPT/HCPCS: 36415; 80048; 80053; 80061; 82043; 83721; 83735; 83880; 84443; 99212

== ENCOUNTER 2020-12-11 12:54 | Outpatient (REF) | payer MEDICARE, MEDICAID, SELFPAY ==
[2020-12-11 14:44] LABS: Free T4 (Free Thyroxine) 1.33 ng/dL (0.71-1.85); Thyroid Stimulating Hormone 1.51 uIU/mL (0.32-4.0)
== END 2020-12-11 12:55 | disposition home or self-care (01) ==
LOC: HO.HMGCLDS 12:54
PROVIDERS: PCP Student in an Organized Health Care Education/Training Program; Visit Provider Nurse Practitioner Gerontology
DX: E06.3 Autoimmune thyroiditis (principal)
CPT/HCPCS: 36415; 84439; 84443

== ENCOUNTER → 2020-12-21 10:23 | Outpatient (BNVA) | payer MEDICARE, MEDICAID, SELFPAY | PROVIDERS: PCP Student in an Organized Health Care Education/Training Program; Visit Provider Nurse Practitioner Gerontology | CPT/HCPCS: Q3014 ==

== ENCOUNTER → 2021-03-29 10:11 | Outpatient (BNVA) | payer MEDICARE, MEDICAID, SELFPAY | PROVIDERS: PCP Student in an Organized Health Care Education/Training Program; Visit Provider Nurse Practitioner Gerontology | DX: E11.65 Type 2 diabetes mellitus with hyperglycemia (principal); E11.42 Type 2 diabetes mellitus with diabetic polyneuropathy; E11.21 Type 2 diabetes mellitus with diabetic nephropathy; E03.8 Other specified hypothyroidism; E06.3 Autoimmune thyroiditis; E78.5 Hyperlipidemia, unspecified; I10 Essential (primary) hypertension; Z79.4 Long term (current) use of insulin; Z68.42 Body mass index [BMI] 45.0-49.9, adult | CPT/HCPCS: 82947; 99212 ==

== ENCOUNTER → 2021-04-18 14:03 | Outpatient (BNVA) | payer MEDICARE, MEDICAID, SELFPAY | PROVIDERS: PCP Student in an Organized Health Care Education/Training Program; Visit Provider Internal Medicine Cardiovascular Disease | DX: I50.30 Unspecified diastolic (congestive) heart failure (principal); I35.0 Nonrheumatic aortic (valve) stenosis | CPT/HCPCS: 99212 ==

== ENCOUNTER → 2021-07-09 11:00 | Outpatient (BNVA) | payer MEDICARE, MEDICAID, SELFPAY | PROVIDERS: PCP Student in an Organized Health Care Education/Training Program; Visit Provider Nurse Practitioner Family | DX: Z12.11 Encounter for screening for malignant neoplasm of colon (principal) | CPT/HCPCS: Q3014 ==

== ENCOUNTER 2021-08-26 14:20 | Emergency (ER) | payer MEDICARE, MEDICAID, SELFPAY ==
--- NOTE | ~2021-08-26 | XR_ITS ---
EXAMINATION: XR CHEST CLINICAL INFORMATION: Shortness of breath. COMPARISON: Chest radiograph dated from 08/06/2020. TECHNIQUE: 2 views of the chest were obtained. FINDINGS: Mild interstitial prominence. No focal airspace opacities. No pleural effusion or pneumothorax. Unchanged appearance of the cardiomediastinal silhouette. No acute osseous abnormalities. XR/XR chest 2V IMPRESSION: Mild interstitial prominence of uncertain significance, in the proper clinical setting, this could be related with an infectious or inflammatory process of the small airways. No focal consolidation. No pleural effusion or pneumothorax.
[2021-08-26 17:01] VITALS: BP 143/76; PULSE 64; RESP 18; TEMP 36.8; O2SAT 99; BMI 46.5
[2021-08-26 17:23] VITALS: BP 164/84; PULSE 68; TEMP 36.8; O2SAT 98
--- NOTE | 2021-08-26 17:41 | ECG_ITS ---
Test Reason : sob Blood Pressure : / mmHG Vent. Rate : 059 BPM Atrial Rate : 059 BPM P-R Int : 156 ms QRS Dur : 080 ms QT Int : 446 ms P-R-T Axes : 033 -08 065 degrees QTc Int : 441 ms Sinus bradycardia Otherwise normal ECG When compared with ECG of 06-AUG-2020 14:22, Nonspecific T wave abnormality no longer evident in Inferior leads Nonspecific T wave abnormality no longer evident in Anterior leads QT has lengthened Low voltage QRS has changed Referred By: Tierra Christian Electronically Signed By:LEXA TAVAREZ MD
--- NOTE | 2021-08-26 17:59 | ED_ITS ---
HPI - Nausea/Vomiting/Diarrhea General Chief complaint: Nausea/Vomiting/Diarrhea Stated complaint: vomiting sob Time Seen by Provider: 08/26/21 17:34 Source: patient Mode of arrival: ambulatory Limitations: no limitations History of Present Illness HPI Narrative: 61-year-old female with a past medical history of diabetes, hypertension, high cholesterol, hypothyroidism, congestive heart failure on Lasix 40 mg BID, chronic kidney disease here with complaints of feeling generally weak today, slight shortness of breath with dry cough, nausea and vomiting x4. Patient tells me that the last week she has had sinus pressure and pain as well as an occasional cough. She completed a course of Augmentin today and feels like she has some continued sinus pressure and pain although overall is improved. She denies any abdominal pain, diarrhea, fevers, chills, chest pain. Patient denies any leg swelling or weight gain. Associated nausea: Yes Related Data Home Medications Medication Instructions Recorded Confirmed amlodipine 10 mg tablet 10 mg PO DAILY@1200 08/06/20 08/08/21 aspirin 81 mg tablet,delayed 81 mg PO DAILY@1200 08/06/20 08/08/21 release cholecalciferol (vitamin D3) 25 25 mcg PO DAILY@1200 08/06/20 08/08/21 mcg (1,000 unit) tablet diphenhydramine HCl 25 mg capsule 25 mg PO Q4-6H PRN 08/06/20 08/08/21 (Banophen) escitalopram oxalate 10 mg tablet 10 mg PO DAILY@1200 08/06/20 08/08/21 hydroxyzine HCl 10 mg tablet 10 mg PO DAILY PRN 08/06/20 08/08/21 ketotifen fumarate 0.025 % (0.035 1 drp OPHTHALMIC (EYE) BID 08/06/20 08/08/21 %) eye drops loratadine 10 mg tablet 10 mg PO DAILY PRN 08/06/20 08/08/21 tigviybdrodi-[id number] 1 tab PO DAILY 08/06/20 08/08/21 tablet (Cerovite Senior) blood sugar diagnostic (FreeStyle #10 ea 10/01/20 04/18/21 Lite Strips) alcohol swabs pad TOPICAL DAILY 10/18/20 04/18/21 furosemide 20 mg tablet 20 mg PO DAILY 07/09/21 Previous Rx's Medication Instructions Recorded furosemide 40 mg tablet 40 mg PO BID #60 tab 08/16/20 isosorbide mononitrate 30 mg 30 mg PO DAILY #30 tab 08/16/20 tablet,extended release 24 hr metoprolol succinate 100 mg 100 mg PO BEDTIME #30 tab 08/16/20 tablet,extended release 24 hr spironolactone 25 mg tablet 25 mg PO DAILY #30 tab 08/16/20 pen needle, diabetic 32 gauge x 1 ea MISCELLANEOUS QID #100 ea 10/01/20 (Pentips) levothyroxine 175 mcg tablet 175 mcg PO DAILY 90 Days #90 tab 11/26/20 TRUEplus Lancets 33 gauge (lancets) #350 ea NS 12/27/20 ezetimibe 10 mg tablet 10 mg PO DAILY #90 tab 02/26/21 blood sugar diagnostic (FreeStyle 1 strip MISCELLANEOUS QID #400 03/21/21 Lite Strips) strip dulaglutide 3 mg/0.5 mL 3 mg (0.5 mL) SUBCUT QWEEK 28 Days 03/29/21 subcutaneous pen injector #2 ml (Trulicity) insulin glargine U-300 conc 300 42 unit (0.14 mL) SUBCUT DAILY #6 03/29/21 unit/mL (3 mL) subcutaneous pen ml (Toujeo Max U-300 SoloStar) insulin lispro 200 unit/mL (3 mL) See Rx Instructions SUBCUT TID #12 07/08/21 subcutaneous pen (Humalog KwikPen ml U-200 Insulin) bisacodyl 5 mg tablet,delayed 10 mg PO ONCE 1 Days #2 tab 07/09/21 release (Dulcolax (bisacodyl)) polyethylene glycol 3350 17 238 g PO ONCE #238 g 07/09/21 gram/dose oral powder (Miralax) pen needle, diabetic 32 gauge x 1 ea MISCELLANEOUS .five times a 08/08/21 (Pentips) day #150 ea rosuvastatin 40 mg tablet 40 mg PO BEDTIME #90 tab 08/21/21 azithromycin 250 mg tablet 250 mg PO DAILY 4 Days #4 tab 08/26/21 ondansetron 4 mg disintegrating 4 mg PO Q6H PRN #10 tab 08/26/21 tablet Allergies Allergy/AdvReac Type Severity Reaction Status Date / Time lisinopril [LISINOPRIL] AdvReac Unknown ITCHY EYES Verified 07/09/21 11:04 Review of Systems Review of Systems: Yes all other systems are reviewed and are negative Constitutional: Constitutional: Reports no additional constitutional complaints, Denies body ache(s), Denies chills, Denies fever(s), Denies headache(s) and Reports weakness Eyes: Eyes: Reports no additional eye complaints and Denies change in vision ENT: Reports system reviewed and no additional complaints, except as documented, Denies dizziness, Denies headache(s), Denies nasal congestion, Denies nasal discharge, Denies neck pain, Reports sinus pain and Reports sinus pressure Cardiovascular: Cardiovascular: Reports no additional cardiovascular complaints, Denies chest pain, Denies leg edema and Reports dyspnea Respiratory: Respiratory: Reports no additional respiratory complaints, Reports cough and Reports dyspnea Gastrointestinal: Gastrointestinal: Reports no additional gastrointestinal complaints, Denies abdominal pain, Denies diarrhea, Reports nausea and Reports vomiting Genitourinary: Genitourinary: Reports no additional female genitourinary complaints and Denies urinary incontinence Musculoskeletal: Musculoskeletal: Reports no additional musculoskeletal complaints, Denies back pain, Denies arthralgias, Denies joint swelling, Denies neck pain, Denies numbness and Denies tingling Integumentary/Breasts: Skin/Breast: Reports system reviewed and no additional complaints, except as docu and Denies rash Neurologic: Reports system reviewed and no additional complaints, except as documented, Denies Abnormal speech present, Denies dizziness, Denies headache(s ), Denies numbness, Denies tingling and Reports weakness PMFSH Past Medical History Attestation statement: The following information was validated with the patient. Source: old records reviewed and nursing notes reviewed Medical History (HFpEF) heart failure with preserved ejection fraction Abnormal dexamethasone suppression test Acute on chronic heart failure with preserved ejection fraction (HFpEF) Acute on chronic kidney failure Anasarca Aortic stenosis Autoimmune thyroiditis BMI 45.0-49.9, adult CHF (congestive heart failure) CKD (chronic kidney disease) Congestive heart failure COVID-19 vaccine series completed Diabetes mellitus with hyperglycemia Diabetes type 2, uncontrolled Dyslipidemia, goal LDL below 100 Essential hypertension Hypokalemia Hypomagnesemia Kidney disease Morbid obesity due to excess calories Other specified hypothyroidism Syncope 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 Surgical History History of History of removal of calculus of renal pelvis through percutaneous nephrostomy Family History Family History Family/Other Diabetes Mother History of high blood pressure Father History of high blood pressure Maternal Grandmother History of high blood pressure Social History Social History Household Members: Spouse Housing: Apartment Are you a primary care process manager to a significant other at home: No Do you presently have visiting nurse or other home services: No Alcohol intake: current Alcohol intake frequency: holidays/special occasions only Alcohol type: wine Patient Tobacco Use Status: Never used Tobacco Use of substances other than those prescribed or required for medical reasons: No Advance Directives: Yes Advance Directives Information Provided: Yes Advance Directives on File: No service: No Current occupational status: disabled Physical Exam Vital Signs: Vital Signs: Last Vital Signs Temp 98.2 F 08/26/21 17:23 Pulse 64 08/26/21 19:29 Resp 16 08/26/21 19:29 BP 108/60 08/26/21 19:29 Pulse Ox 97 08/26/21 19:29 Body Mass Index 46.5 Const: General: cooperative, healthy appearing, comfortable and no acute distress Orientation/consciousness: patient oriented x3 Limitations: no limitations HENMT: Head: Yes normal to inspection Ears: hearing grossly normal bilaterally and TM's normal bilaterally General nose exam: Normal external nose present Face and sinus: Yes normal facial exam and Yes sinus tenderness ( Bilateral maxillary) Mouth: Normal oral and palatal mucosa present Throat: Yes posterior oropharynx normal Eyes: General: appearance normal, both eyes and all related structures Pupils: Equal, round and reactive pupils present Neck: Neck: Yes normal visual inspection, Yes full ROM, Yes no lymphadenopathy and Yes no meningeal signs Chest: Chest palpation & inspection: normal inspection of the chest Resp: Effort & Inspection: normal respiratory effort Auscultation: clear to auscultation bilaterally Cardio: Rate: regular rate Rhythm: regular rhythm Peripheral pulses: Peripheral pulses 2+ throughout GI: Inspection: Yes normal to inspection Palpation (GI): Soft to palpation and nontender Auscultation: normal bowel sounds Back/Spine/Pelvis: Thoracic/Lumbar Spine: thoracic and lumbar spine normal to inspection Skin: General skin exam: no rashes or lesions noted Neuro: General: patient oriented x3, no meningeal signs, no focal motor deficits and normal sensation to monofilament Cranial nerves: Yes Equal, round and reactive pupils present Cognition (Neuro): normal cognition Speech: No Abnormal speech present Gait exam (Neuro): Normal gait present Motor exam (neuro): 5/5 motor strength present throughout Extrem: General: Yes normal to inspection and Yes no pedal edema Course Course Course Narrative: 61-year-old female here with complaints of generalized weakness, dry cough, slight shortness of breath, nausea and vomiting today. Of note, patient completed a course of Augmentin today for a sinus infection. She is still complaining of some continued sinus pressure in pre but feels like overall this is improved. On exam she does have sinus tenderness to palpate. Otherwise her exam is normal. Speaking full sentences, oxygen saturation 100% on room air. No obvious tachypnea and shortness of breath. No focal abdominal pain. Will check labs, EKG, chest x-ray home COVID screen. provide antiemetic 2129- reviewed labs which show mild ISAÍAS. Patient was gently hydrated and plan for repeat BMP. her chest x-ray shows what looks like an atypical pneumonia. She has no hypoxia, no tachypnea, no leukocytosis or fever. she is able to tolerate p.o. fluids and had saltine crackers and johnnie marcus as well as her 1st dose of antibi otic while 0- repeat BMP improved almost back to baseline. patient is feeling improved like to be discharged home. Reviewed worrisome signs and symptoms of when to return to the emergency department. Comfortable discharge home. MDM - Nausea/Vomiting/Diarrhea Medical Records Attestation: I reviewed the patient's medical records. Lab Data Attestation: I reviewed the patient's lab results. Result diagrams: 08/26/21 18:10 08/26/21 21:17 Labs: Lab Results 08/26/21 08/26/21 08/26/21 Range/Units 18:10 18:10 18:10 WBC 8.3 (4.8-10.8) X10*3/uL RBC 5.12 (4.20-5.50) X10*6/uL Hgb 13.9 (12.0-16.0) g/dl Hct 42.6 (37.0-47.0) % MCV 83.2 (80.0-98.0) fL MCH 27.1 (27.0-33.0) pg MCHC 32.6 (31.0-35.0) g/dl RDW 14.1 (11.0-16.0) % Plt Count 232 (160-400) X10*3/uL MPV 11.2 (9.4-12.3) fL Immature Gran % (Auto) 0.2 (0.0-0.4) % Neut % (Auto) 61.5 (45-73) % Lymph % (Auto) 28.0 (20-40) % [place] % (Auto) 6.1 (2-11) % Eos % (Auto) 3.2 (0-4) % Baso % (Auto) 1.0 (0-2) % Lymph # (Auto) 2.3 (1.2-4.9) X10*3/uL [place] # (Auto) 0.5 (0.1-1.2) X10*3/uL Eos # (Auto) 0.3 (0.0-0.4) X10*3/uL Baso # (Auto) 0.1 (0.0-0.2) X10*3/uL Abs Immat Gran (auto) 0.02 (0.00-0.03) X10*3/uL Absolute Neuts (auto) 5.1 (2.0-8.3) x10*3/uL Absolute Nucleated RBC 0.000 (0.0-0.012) X10*3/uL Nucleated RBC % (auto) 0.0 (0.0-0.2) /100WBC Sodium 139 (135-145) mmol/L Potassium 4.4 (3.3-5.1) mmol/L Chloride 100 (96-108) mmol/L Carbon Dioxide 26 (22-29) mmol/L Anion Gap 17 (12-20) BUN 30 H (9-16) mg/dL Creatinine 1.71 H (0.5-1.4) mg/dL Estim Creat Clear Calc 40.0 Estimated GFR 30 Random Glucose 323 H (60-115) mg/dL Calcium 10.1 (8.4-10.2) mg/dL Total Bilirubin 0.5 (0.0-1.0) mg/dL Direct Bilirubin 0.2 (0.0-0.5) mg/dL AST 22 (5-31) U/L ALT 25 (0-31) U/L Alkaline Phosphatase 60 D (39-117) U/L Troponin I High Sens 8.0 (<3.5-17.0) ng/L B-Natriuretic Peptide 101 H (<100) pg/mL Total Protein 8.0 (6.5-8.0) g/dL Albumin 4.2 (3.5-5.0) g/dL Lipase 60 (8-78) U/L Urine Color Urine Appearance Urine pH (5.0-8.0) Ur Specific Decker (1.005-1.025) Urine Protein (NEG-TRACE) MG/DL Urine Glucose (UA) (NEG) MG/DL Urine Ketones (NEG) MG/DL Urine Blood (NEG) Urine Nitrite (NEG) Ur Leukocyte Esterase (NEG) Urine RBC (0) /HPF Urine WBC (0-4) /HPF Ur Squamous Epith Cells /LPF Urine Bacteria /LPF Hyaline Casts /LPF Urine Mucus /LPF COVID-19 (NELLY) (Negative) COVID-19 Clin Com 08/26/21 08/26/21 08/26/21 Range/Units 19:33 21:17 21:45 WBC (4.8-10.8) X10*3/uL RBC (4.20-5.50) X10*6/uL Hgb (12.0-16.0) g/dl Hct (37.0-47.0) % MCV (80.0-98.0) fL MCH (27.0-33.0) pg MCHC (31.0-35.0) g/dl RDW (11.0-16.0) % Plt Count (160-400) X10*3/uL MPV (9.4-12.3) fL Immature Gran % (Auto) (0.0-0.4) % Neut % (Auto) (45-73) % Lymph % (Auto) (20-40) % [place] % (Auto) (2-11) % Eos % (Auto) (0-4) % Baso % (Auto) (0-2) % Lymph # (Auto) (1.2-4.9) X10*3/uL [place] # (Auto) (0.1-1.2) X10*3/uL Eos # (Auto) (0.0-0.4) X10*3/uL Baso # (Auto) (0.0-0.2) X10*3/uL Abs Immat Gran (auto) (0.00-0.03) X10*3/uL Absolute Neuts (auto) (2.0-8.3) x10*3/uL Absolute Nucleated RBC (0.0-0.012) X10*3/uL Nucleated RBC % (auto) (0.0-0.2) /100WBC Sodium 140 (135-145) mmol/L Potassium 4.3 (3.3-5.1) mmol/L Chloride 104 (96-108) mmol/L Carbon Dioxide 25 (22-29) mmol/L Anion Gap 15 (12-20) BUN 30 H (9-16) mg/dL Creatinine 1.55 H (0.5-1.4) mg/dL Estim Creat Clear Calc 44.0 Estimated GFR 34 Random Glucose 281 H (60-115) mg/dL Calcium 9.3 D (8.4-10.2) mg/dL Total Bilirubin (0.0-1.0) mg/dL Direct Bilirubin (0.0-0.5) mg/dL AST (5-31) U/L ALT (0-31) U/L Alkaline Phosphatase (39-117) U/L Troponin I High Sens (<3.5-17.0) ng/L B-Natriuretic Peptide (<100) pg/mL Total Protein (6.5-8.0) g/dL Albumin (3.5-5.0) g/dL Lipase (8-78) U/L Urine Color YELLOW Urine Appearance CLEAR Urine pH 6.0 (5.0-8.0) Ur Specific Decker >= 1.030 H (1.005-1.025) Urine Protein 2+ H (NEG-TRACE) MG/DL Urine Glucose (UA) NEG (NEG) MG/DL Urine Ketones NEG (NEG) MG/DL Urine Blood NEG (NEG) Urine Nitrite NEG (NEG) Ur Leukocyte Esterase NEG (NEG) Urine RBC 1-4 (0) /HPF Urine WBC 1-4 (0-4) /HPF Ur Squamous Epith Cells 1+ /LPF Urine Bacteria 2+ /LPF Hyaline Casts 1-4 /LPF Urine Mucus 1+ /LPF COVID-19 (NELLY) Negative (Negative) COVID-19 Clin Com See Note Imaging Data Chest x-ray: Attestation: I personally reviewed and interpreted this imaging study as follows: Radiologist's impression: EXAMINATION: XR CHEST CLINICAL INFORMATION: Shortness of breath. COMPARISON: Chest radiograph dated from 08/06/2020. TECHNIQUE: 2 views of the chest were obtained. FINDINGS: Mild interstitial prominence. No focal airspace opacities. No pleural effusion or pneumothorax. Unchanged appearance of the cardiomediastinal silhouette. No acute osseous abnormalities. XR/XR chest 2V IMPRESSION: Mild interstitial prominence of uncertain significance, in the proper clinical setting, this could be related with an infectious or inflammatory process of the small airways. No focal consolidation. No pleural effusion or pneumothorax. ECG Data Attestation: I personally reviewed and interpreted this ECG as follows: ECG interpretation date: 08/26/21 ECG interpretation time: 18:32 Interpretation: sinus bradycardia with rate 59, normal PA, normal QRS, normal QT Discharge Plan Discharge Clinical Impression: Pneumonia, Dehydration Patient Disposition: Home, Self-Care Instructions: Dehydration (ED), Pneumonia (ED) Additional Instructions: start your antibiotic tomorrow increase fluids, rest return for shortness of breath, chest pain, fever which is not improved with Tylenol and Motrin Prescriptions: New azithromycin 250 mg tablet 250 mg PO DAILY 4 Days Qty: 4 RF: 0 ondansetron 4 mg tablet,disintegrating 4 mg PO Q6H PRN (Reason: nausea and vomiting) Qty: 10 RF: 0 No Action (DME) FreeStyle Lite Strips Strip See Rx Instructions .ROUTE .MEDSUPPLY Qty: 10 RF: 0 pen needle, diabetic [Pentips] 32 gauge x 5/32 needle 1 ea miscellaneous QID Qty: 100 RF: 2 levothyroxine 175 mcg tablet 175 mcg PO DAILY 90 Days Qty: 90 RF: 2 (DME) lancets [TRUEplus Lancets] 33 gauge misc See Rx Instructions .ROUTE .MEDSUPPLY Qty: 350 RF: 3 ezetimibe 10 mg tablet 10 mg PO DAILY Qty: 90 RF: 3 blood sugar diagnostic [FreeStyle Lite Strips] Strip 1 strip miscellaneous QID Qty: 400 RF: 3 Humalog KwikPen Insulin 200 unit/mL (3 mL) insulin pen See Rx Instructions subcut TID Qty: 12 RF: 4 pen needle, diabetic [Pentips] 32 gauge x 5/32 needle 1 ea miscellaneous .five times a day Qty: 150 RF: 11 rosuvastatin 40 mg tablet 40 mg PO BEDTIME Qty: 90 RF: 1 ketotifen fumarate 0.025 % (0.035 %) drops 1 drp ophthalmic (eye) BID RF: 0 aspirin 81 mg tablet,delayed release (DR/EC) 81 mg PO DAILY@1200 RF: 0 amlodipine 10 mg tablet 10 mg PO DAILY@1200 RF: 0 diphenhydramine HCl [Banophen] 25 mg capsule 25 mg PO Q4-6H PRN (Reason: itch) RF: 0 hydroxyzine HCl 10 mg tablet 10 mg PO DAILY PRN (Reason: anxiety) RF: 0 loratadine 10 mg tablet 10 mg PO DAILY PRN (Reason: Allergic Symptoms) RF: 0 escitalopram oxalate 10 mg tablet 10 mg PO DAILY@1200 RF: 0 cholecalciferol (vitamin D3) 25 mcg (1,000 unit) tablet 25 mcg PO DAILY@1200 RF: 0 Cerovite Senior Tablet 1 tab PO DAILY RF: 0 isosorbide mononitrate 30 mg Tablet Extended Release 24 Hr 30 mg PO DAILY Qty: 30 RF: 0 spironolactone 25 mg Tablet 25 mg PO DAILY Qty: 30 RF: 0 furosemide 40 mg tablet 40 mg PO BID Qty: 60 RF: 0 metoprolol succinate 100 mg Tablet Extended Release 24 Hr 100 mg PO BEDTIME Qty: 30 RF: 0 alcohol swabs Pads, Medicated topical DAILY RF: 0 Toujeo Max U-300 SoloStar 300 unit/mL (3 mL) insulin pen 42 unit subcut DAILY Qty: 6 RF: 3 Trulicity 3 mg/0.5 mL pen injector 3 mg subcut QWEEK 28 Days Qty: 2 RF: 3 bisacodyl [Dulcolax (bisacodyl)] 5 mg tablet,delayed release (DR/EC) 10 mg PO ONCE 1 Days Qty: 2 RF: 0 polyethylene glycol 3350 [Miralax] 17 gram/dose powder 238 g PO ONCE Qty: 238 RF: 0 Referrals: Fatmata Sky MD [Primary Care Provider] - 2 days Interventions: ED Discharge Assessment Last Done: 08/26/21 22:44 Discharge Date/Time: 08/26/21 22:44
[2021-08-26 18:16] LABS: MANUAL DIFF FLAG NO
[2021-08-26] MEDS: ondansetron HCL 4 MG/2 ML VIAL IVPUSH (18:17)
[2021-08-26 18:24] LABS: Basophils Absolute Auto 0.1 X10*3/uL (0.0-0.2); Eosinophils Absolute Auto 0.3 X10*3/uL (0.0-0.4); Eosinophils Percent Auto 3.2 % (0-4); Hematocrit 42.6 % (37.0-47.0); Hemoglobin 13.9 g/dl (12.0-16.0); Imm Gran Abs Auto 0.02 X10*3/uL (0.00-0.03); Imm Gran Pct Auto 0.2 % (0.0-0.4); Lymphocytes Absolute Auto 2.3 X10*3/uL (1.2-4.9); Mean Corpuscular HGB Conc 32.6 g/dl (31.0-35.0); Mean Corpuscular Hemoglobin 27.1 pg (27.0-33.0); Mean Corpuscular Volume 83.2 fL (80.0-98.0); Mean Platelet Volume 11.2 fL (9.4-12.3); Monocytes Absolute Auto 0.5 X10*3/uL (0.1-1.2); Monocytes Percent Auto 6.1 % (2-11); Neutrophils Absolute Auto 5.1 x10*3/uL (2.0-8.3); Neutrophils Percent Auto 61.5 % (45-73); Platelet Count 232 X10*3/uL (160-400); Red Blood Count 5.12 X10*6/uL (4.20-5.50); Red Cell Distribution Width 14.1 % (11.0-16.0); White Blood Count 8.3 X10*3/uL (4.8-10.8)
[2021-08-26 18:41] LABS: Alanine Aminotransferase 25 U/L (0-31); Albumin Level 4.2 g/dL (3.5-5.0); Alkaline Phosphatase 60 U/L (39-117); Anion Gap 17 (12-20); Aspartate Amino Transferase 22 U/L (5-31); Bilirubin Direct 0.2 mg/dL (0.0-0.5); Bilirubin Total 0.5 mg/dL (0.0-1.0); Blood Urea Nitrogen 30 mg/dL (9-16); Calcium 10.1 mg/dL (8.4-10.2); Carbon Dioxide 26 mmol/L (22-29); Chloride 100 mmol/L (96-108); Estimated Glomerular Filt Rate 30; Glucose Random 323 mg/dL (60-115); Lipase 60 U/L (8-78); Potassium 4.4 mmol/L (3.3-5.1); Sodium 139 mmol/L (135-145)
[2021-08-26 18:46] LABS: B Type Natriuretic Peptide 101 pg/mL (<100)
[2021-08-26 19:29] VITALS: BP 108/60; PULSE 64; RESP 16; O2SAT 97
[2021-08-26] MEDS: 0.9 % Sodium Chloride 500 ML 999 ML IV (19:40)
[2021-08-26 19:55] LABS: COVID-19 Test Negative (Negative)
[2021-08-26] MEDS: Azithromycin 500 MG TABLET PO (20:33)
[2021-08-26 22:02] LABS: Appearance Urine CLEAR; Color Urine YELLOW; Glucose Urine UA NEG (NEG); Leukocyte Esterase Urine NEG (NEG); Nitrite Urine NEG (NEG); Specific Gravity - Urine >= 1.030 (1.005-1.025); UACC Culture Trigger NO; Urine Blood NEG (NEG); Urine Ketones NEG (NEG); Urine Protein 2+ MG/DL (NEG-TRACE)
[2021-08-26 22:08] LABS: Anion Gap 15 (12-20); Blood Urea Nitrogen 30 mg/dL (9-16); Calcium 9.3 mg/dL (8.4-10.2); Carbon Dioxide 25 mmol/L (22-29); Chloride 104 mmol/L (96-108); Estimated Glomerular Filt Rate 34; Glucose Random 281 mg/dL (60-115); Potassium 4.3 mmol/L (3.3-5.1); Sodium 140 mmol/L (135-145)
[2021-08-26 22:15] LABS: Bacteria Urine 2+ /LPF; Squamous Epithelial Cell Urine 1+ /LPF
[2021-08-26 22:16] LABS: Mucus Urine 1+ /LPF
== END 2021-08-26 22:44 | disposition home or self-care (01) ==
PROVIDERS: Nurse Practitioner Family; Emergency Provider Emergency Medicine; PCP Student in an Organized Health Care Education/Training Program
DX: J18.9 Pneumonia, unspecified organism (principal); E86.0 Dehydration; Z20.822 Contact with and (suspected) exposure to COVID-19; R06.02 Shortness of breath; R11.2 Nausea with vomiting, unspecified; E11.22 Type 2 diabetes mellitus with diabetic chronic kidney disease; I13.0 Hypertensive heart and chronic kidney disease with heart failure and stage 1 through stage 4 chronic kidney disease, or unspecified chronic kidney disease; N18.9 Chronic kidney disease, unspecified; I50.9 Heart failure, unspecified; E78.5 Hyperlipidemia, unspecified; Z79.4 Long term (current) use of insulin; Z79.02 Long term (current) use of antithrombotics/antiplatelets; Z79.82 Long term (current) use of aspirin; Z79.899 Other long term (current) drug therapy
CPT/HCPCS: 36415; 71046; 80048; 80076; 81001; 81003; 83690; 83880; 84484; 85025; 87635; 93005; 96374; 99284; J2405

== ENCOUNTER → 2021-10-07 13:35 | Outpatient (REF) | payer MEDICARE, MEDICAID, SELFPAY ==
--- NOTE | 2021-10-07 13:38 | CA_ITS ---
Transthoracic Echocardiogram Patient (Last, First, Middle): Kati Szymanski, Gender: Female Date of : 1960 Age: 61 Procedure Date: 10/07/2021 Procedure Type: Transthoracic Echocardiogram Location: OP Height: 157.48 cm Weight: 108.86 kg BSA: 2.07 m2 Heart Rate: bpm BP: 112 / 70 mmHg Nailhead Puncher: TERRANCE Referring MD: Raheem Schulte MD Volunteer Fire Fighter: Raheem Schulte MD Symptoms: I35.0 - Nonrheumatic aortic (valve) stenosis Study Quality: Fair ECG Rhythm: Sinus Conclusions: - 1. Normal LV systilic function with mild LVH with pseudonormal filling pattern 2. Moderate to severe aortic stenosis 3. Severe MAC 4. Normal RVSP 5. No pericardial effusion Findings Left Ventricle Normal left ventricular size and systolic function. There is mildly increased left ventricular wall thickness. The visually estimated ejection fraction is between 60-65%. Spectral Doppler is indicative of a pseudonormal filling pattern. Elevated left ventricular end diastolic pressure. Right Ventricle Normal right ventricular cavity size and systolic function. Atria The left atrium is likely dilated. Interatrial shunt cannot be excluded. The right atrium is normal in size. Aortic Valve The aortic valve was not well visualized. There is mild calcification of the aortic valve. There is moderate to severe aortic valve stenosis. The peak aortic gradient is 44 mmHg.The mean gradient is 26 mmHg. The aortic valve area is 1.05 cm2. There is no aortic valve regurgitation. Mitral Valve There is mild anterior and severe posterior mitral leaflet thickening. There is severe mitral annular calcification. There is trace mitral valve regurgitation. There is no mitral valve stenosis. Pulmonic Valve The pulmonic valve was not well visualized. Tricuspid Valve Likely normal tricuspid valve structure and function. There is mild tricuspid valve regurgitation. The right ventricular systolic pressure is normal. The right ventricular systolic pressure is 28 mmHg. There is no evidence of pulmonary hypertension. Great Vessels All visible segments of the aorta are normal in size. The pulmonary artery was not well visualized. Venous The inferior vena cava is normal in size and collapses greater than 50% with inspiration. Pericardium/Pleural There is no evidence of pericardial effusion. Prior Study Comparison Changes noted compared to prior study dated: 08/07/2020. Aortic stenosis has progressed Measurements 2D Linear Measurements IVSd: 1.28 0.6-0.9/0.6-1.0 cm LVIDd: 4.50 3.9-5.3/4.2-5.9 cm LVIDd Index: 2.17 2.4-3.2/2.2-3.1 cm/m2 LVIDs: 2.76 2.0-3.6 cm LVPWd: 1.23 0.7-1.1 cm Ao Root: 2.70 2.1-3.5 cm LA Diam: 4.60 2.7-3.8/3.0-4.0 cm LAIDs Index: 2.22 1.5-2.3 cm/m2 LV Mass: 263.48 67-162/88-224 g LV Mass Index: 127.29 43-95/49-115 g/m2 LVOT Diam: 2.00 3.0+(-)1.3 cm 2D Systolic Function EF 4C: 59.80 >55% EF 2C: 69.50 >55% EF BiP: 64.40 >55% Mitral Valve MV Pk E: 1.23 MV PK A: 1.07 MV Decel Time: 236.00 E/A: 1.10 E'Lateral: 3.59 E'Medial: 2.94 E/E' Med: 41.80 E/E' Lat: 34.30 PHT: 69.00 MVA PHT: 3.19 Decel [place]: 5.21 Aortic Valve AoV Pk Jacinto: 3.30 AoV Mn Jacinto: 2.40 AoV VTI: 0.88 AoV Pk Grad: 44.00 Aov Mn Grad: 26.00 VICTOR MANUEL Cont.VTI: 1.05 LVOT LVOT Pk Jacinto: 1.09 LVOT Mn Jacinto: 0.74 LVOT VTI: 0.29 LVOT Pk Grad: 5.00 LVOT Mn Grad: 2.00 LVOT Diam: 2.00 LVOT Area: 3.14 Diastolic Function MV Pk E: 1.23 MV Pk A: 1.07 E/A: 1.10 E'Medial: 2.94 E/E' Med: 41.80 E' Laterial: 3.59 E/E' Lat: 34.30 Right Ventricle TAPSE (mm): 29.60 TVS' Jacinto: 11.50 Tricuspid Valve TR Pk Jacinto: 2.50 TR Pk Grad: 25.00 RA Press: 3.00 RVSP: 28.00 Great Vessels Aorta Ao Root-2D: 2.70 2.0-3.7 cm Ao Asc: 2.90 2.1-3.4 cm Updated in Other Vendor System with Status of Final Raheem Schulte MD electronically signed on 10/07/2021 6:23:54 PM with status of Final
== END ==
LOC: HO.CARD 13:35
PROVIDERS: PCP Student in an Organized Health Care Education/Training Program; Visit Provider Internal Medicine Cardiovascular Disease
DX: I35.0 Nonrheumatic aortic (valve) stenosis (principal)
CPT/HCPCS: 93306

== ENCOUNTER 2021-10-22 11:04 | Outpatient (REF) | payer MEDICARE, MEDICAID, SELFPAY ==
[2021-10-22 13:02] LABS: Anion Gap 17 (12-20); B Type Natriuretic Peptide 78 pg/mL (<100); Blood Urea Nitrogen 45 mg/dL (9-16); Calcium 10.3 mg/dL (8.4-10.2); Carbon Dioxide 27 mmol/L (22-29); Chloride 102 mmol/L (96-108); Estimated Glomerular Filt Rate 33; Glucose Random 127 mg/dL (60-115); Potassium 4.7 mmol/L (3.3-5.1); Sodium 141 mmol/L (135-145)
== END 2021-10-22 11:05 | disposition home or self-care (01) ==
LOC: HO.LAB 11:04
PROVIDERS: PCP Student in an Organized Health Care Education/Training Program; Visit Provider Internal Medicine Cardiovascular Disease
DX: I35.0 Nonrheumatic aortic (valve) stenosis (principal); I50.30 Unspecified diastolic (congestive) heart failure
CPT/HCPCS: 36415; 80048; 83880; 99212

== ENCOUNTER → 2021-10-29 08:12 | Outpatient (BNVA) | payer MEDICARE, MEDICAID, SELFPAY | PROVIDERS: PCP Student in an Organized Health Care Education/Training Program; Visit Provider Nurse Practitioner Gerontology | CPT/HCPCS: Q3014 ==

== ENCOUNTER → 2022-01-29 11:39 | Outpatient (BNVA) | payer MEDICARE, MEDICAID, SELFPAY | PROVIDERS: PCP Student in an Organized Health Care Education/Training Program; Visit Provider Nurse Practitioner Gerontology | DX: E11.65 Type 2 diabetes mellitus with hyperglycemia (principal); E11.42 Type 2 diabetes mellitus with diabetic polyneuropathy; E11.21 Type 2 diabetes mellitus with diabetic nephropathy; E06.3 Autoimmune thyroiditis; E03.8 Other specified hypothyroidism; I10 Essential (primary) hypertension; E78.5 Hyperlipidemia, unspecified; E66.01 Morbid (severe) obesity due to excess calories; Z68.42 Body mass index [BMI] 45.0-49.9, adult; Z79.4 Long term (current) use of insulin | CPT/HCPCS: Q3014 ==

== ENCOUNTER 2022-02-25 12:29 | Outpatient (REF) | payer MEDICARE, SELFPAY ==
[2022-02-25 13:13] LABS: Estimated Average Glucose 243 mg/dL; Hemoglobin A1c % 10.1 %
[2022-02-25 13:37] LABS: Alanine Aminotransferase 16 U/L (0-31); Alkaline Phosphatase 60 U/L (39-117); Anion Gap 16 (12-20); Aspartate Amino Transferase 18 U/L (5-31); Bilirubin Total 0.6 mg/dL (0.0-1.0); Blood Urea Nitrogen 48 mg/dL (9-16); Calcium 9.9 mg/dL (8.4-10.2); Carbon Dioxide 24 mmol/L (22-29); Chloride 100 mmol/L (96-108); Cholesterol 122 mg/dL; Estimated Glomerular Filt Rate 32; Glucose Fasting 309 mg/dL (60-99); HDL Cholesterol 22 mg/dL; LDL Cholesterol Calculated 53 mg/dl; Potassium 4.4 mmol/L (3.3-5.1); Sodium 136 mmol/L (135-145); Total Protein 7.7 g/dL (6.5-8.0); Triglycerides 237 mg/dL
[2022-02-25 13:59] LABS: Free T4 (Free Thyroxine) 1.51 ng/dL (0.71-1.85); Thyroid Stimulating Hormone 1.26 uIU/mL (0.32-4.0)
[2022-02-25 13:59] LABS: Creatinine Urine 116.16 mg/dL; Microalbum/Creatinine Ratio Ur 243.6 ug/mg cr
[2022-02-26 07:47] LABS: LDL Cholesterol Direct 62 mg/dL (<100)
== END 2022-02-25 12:30 | disposition home or self-care (01) ==
LOC: HO.LAB 12:29
PROVIDERS: PCP Student in an Organized Health Care Education/Training Program; Visit Provider Nurse Practitioner Gerontology
DX: E11.21 Type 2 diabetes mellitus with diabetic nephropathy (principal); Z79.4 Long term (current) use of insulin
CPT/HCPCS: 36415; 80053; 80061; 82043; 83036; 83721; 84439; 84443

== ENCOUNTER 2022-04-30 01:27 | Emergency (ER) | payer MEDICARE, SELFPAY ==
--- NOTE | ~2022-04-30 | XR_ITS ---
EXAMINATION: XR CHEST CLINICAL INFORMATION: Pedal edema. COMPARISON: 08/26/2021 chest radiographs. TECHNIQUE: Frontal view of the chest was obtained. FINDINGS: No significant abnormality is noted involving the heart, lungs, mediastinum, bony thorax or soft tissues. XR/XR chest 1V IMPRESSION: No acute cardiopulmonary process.
[2022-04-30 01:56] VITALS: BP 147/70; PULSE 75; TEMP 36.3; O2SAT 97; BMI 45.4
[2022-04-30 05:59] VITALS: BP 132/67; PULSE 68; TEMP 36.8; O2SAT 95
[2022-04-30 07:31] VITALS: BP 147/70; PULSE 77; RESP 17; TEMP 36.8; O2SAT 95
--- NOTE | 2022-04-30 08:14 | PC.NURSE ---
pt is a/o x 3 no sob/obi noted skin pink warm dry speaks in full sentences. r index finger swollen, tender to touch with decrease mobility. lupe ankle 1-2+ edema noted.. lungs - cta
[2022-04-30 08:56] LABS: MANUAL DIFF FLAG NO
[2022-04-30 08:58] LABS: Appearance Urine CLOUDY; Color Urine YELLOW; Glucose Urine UA 100 MG/DL (NEG); Leukocyte Esterase Urine 2+ (NEG); Nitrite Urine NEG (NEG); Specific Gravity - Urine >= 1.030 (1.005-1.025); UACC Culture Trigger YES; Urine Blood 3+ (NEG); Urine Ketones NEG (NEG); Urine Protein 2+ MG/DL (NEG-TRACE)
[2022-04-30 08:58] LABS: Basophils Absolute Auto 0.1 X10*3/uL (0.0-0.2); Basophils Percent Auto 0.6 % (0-2); Eosinophils Absolute Auto 0.1 X10*3/uL (0.0-0.4); Eosinophils Percent Auto 1.3 % (0-4); Hematocrit 40.8 % (37.0-47.0); Hemoglobin 13.3 g/dl (12.0-16.0); Imm Gran Abs Auto 0.03 X10*3/uL (0.00-0.03); Imm Gran Pct Auto 0.3 % (0.0-0.4); Lymphocytes Absolute Auto 1.7 X10*3/uL (1.2-4.9); Lymphocytes Percent Auto 18.5 % (20-40); Mean Corpuscular HGB Conc 32.6 g/dl (31.0-35.0); Mean Corpuscular Hemoglobin 27.3 pg (27.0-33.0); Mean Corpuscular Volume 83.6 fL (80.0-98.0); Monocytes Absolute Auto 0.6 X10*3/uL (0.1-1.2); Monocytes Percent Auto 6.9 % (2-11); Neutrophils Absolute Auto 6.6 x10*3/uL (2.0-8.3); Neutrophils Percent Auto 72.4 % (45-73); Platelet Count 269 X10*3/uL (160-400); Red Blood Count 4.88 X10*6/uL (4.20-5.50); Red Cell Distribution Width 13.6 % (11.0-16.0); White Blood Count 9.1 X10*3/uL (4.8-10.8)
[2022-04-30 09:04] LABS: Bacteria Urine 1+ /LPF; RBC Urine TNTC /HPF (0); Squamous Epithelial Cell Urine 2+ /LPF; WBC Urine TNTC /HPF (0-4)
[2022-04-30 09:20] LABS: Alanine Aminotransferase 21 U/L (0-31); Alkaline Phosphatase 72 U/L (39-117); Anion Gap 17 (12-20); Aspartate Amino Transferase 21 U/L (5-31); Bilirubin Direct 0.3 mg/dL (0.0-0.5); Bilirubin Total 0.7 mg/dL (0.0-1.0); Blood Urea Nitrogen 33 mg/dL (9-16); C Reactive Protein 1.29 mg/dL (< or = 0.50); Calcium 9.1 mg/dL (8.4-10.2); Carbon Dioxide 26 mmol/L (22-29); Chloride 98 mmol/L (96-108); Creatinine Clr Calc Pharmacy 38.7; Estimated Glomerular Filt Rate 28; Glucose Random 336 mg/dL (60-115); Magnesium 1.9 mg/dL (1.6-2.6); Potassium 4.2 mmol/L (3.3-5.1); Sodium 137 mmol/L (135-145); Total Protein 7.8 g/dL (6.5-8.0)
[2022-04-30 09:23] LABS: B Type Natriuretic Peptide 90 pg/mL (<100)
--- NOTE | 2022-04-30 09:28 | ED.GENADULT ---
HPI - General Adult General Chief complaint: General Medical Stated complaint: lot of pain Time Seen by Provider: 04/30/22 08:05 Source: patient Mode of arrival: ambulatory History of Present Illness HPI narrative: 61-year-old female with past medical history of CHF with preserved EF, CKD, anasarca, aortic stenosis, diabetes, HLD, morbid obesity, hypothyroid, presenting to the ED complaining of bilateral feet swelling x1 week and right index finger swelling/erythema. Denies known injury, trauma or fall, worsening LE edema, calf pain, SOB, CP, fever, chills Onset (ago): week(s) Related Data Home Medications Medication Instructions Recorded Confirmed amlodipine 10 mg tablet 10 mg PO DAILY@1200 08/06/20 01/29/22 aspirin 81 mg tablet,delayed 81 mg PO DAILY@1200 08/06/20 01/29/22 release cholecalciferol (vitamin D3) 25 25 mcg PO DAILY@1200 08/06/20 01/29/22 mcg (1,000 unit) tablet diphenhydramine HCl 25 mg capsule 25 mg PO Q4-6H PRN itch 08/06/20 10/22/21 (Banophen) escitalopram oxalate 10 mg tablet 10 mg PO DAILY@1200 08/06/20 10/29/21 hydroxyzine HCl 10 mg tablet 10 mg PO DAILY PRN anxiety 08/06/20 10/22/21 ketotifen fumarate 0.025 % (0.035 1 drp ophthalmic (eye) BID 08/06/20 10/22/21 %) eye drops loratadine 10 mg tablet 10 mg PO DAILY PRN Allergic 08/06/20 10/22/21 Symptoms [id number] 1 tab PO DAILY 08/06/20 10/29/21 tablet (Cerovite Senior) blood sugar diagnostic (FreeStyle #10 ea 10/01/20 10/29/21 Lite Strips) alcohol swabs pad topical DAILY 10/18/20 01/29/22 furosemide 20 mg tablet 20 mg PO DAILY 07/09/21 10/22/21 melatonin 5 mg tablet 10 mg PO BEDTIME 10/22/21 10/22/21 hmnbaolm-[id number] acid 0.4 1 tab PO DAILY 01/29/22 01/29/22 mg-lycopene 300 mcg-lutein 250 mcg tablet (Cerovite Senior) Previous Rx's Medication Instructions Recorded furosemide 40 mg tablet 40 mg PO BID #60 tabs 08/16/20 isosorbide mononitrate 30 mg 30 mg PO DAILY #30 tabs 08/16/20 tablet,extended release 24 hr metoprolol succinate 100 mg 100 mg PO BEDTIME #30 tabs 08/16/20 tablet,extended release 24 hr spironolactone 25 mg tablet 25 mg PO DAILY #30 tabs 08/16/20 pen needle, diabetic 32 gauge x 1 ea miscellaneous QID #100 ea 10/01/20 (Pentips) polyethylene glycol 3350 17 238 g PO ONCE #238 grams 07/09/21 gram/dose oral powder (Miralax) pen needle, diabetic 32 gauge x 1 ea miscellaneous .five times a 08/08/21 (Pentips) day #150 ea rosuvastatin 40 mg tablet 40 mg PO BEDTIME #90 tabs 08/21/21 ondansetron 4 mg disintegrating 4 mg PO Q6H PRN nausea and 08/26/21 tablet vomiting #10 tabs TRUEplus Lancets 33 gauge (lancets) #350 ea 01/09/22 dulaglutide 3 mg/0.5 mL 3 mg (0.5 mL) subcut QWEEK 28 days 01/15/22 subcutaneous pen injector #2 mL (Trulicity) blood sugar diagnostic (FreeStyle 1 strip miscellaneous QID for 01/21/22 Lite Strips) diabetes mellitus #400 strips insulin lispro 200 unit/mL (3 mL) See Rx Instructions subcut TID #12 01/23/22 subcutaneous pen (Humalog KwikPen mL U-200 Insulin) flash glucose scanning reader #1 ea 01/29/22 (FreeStyle Phil 2 Kelford) flash glucose sensor (FreeStyle #2 ea 01/29/22 Phil 2 Sensor kit) levothyroxine 175 mcg tablet 175 mcg PO QAM #90 tabs 02/20/22 ezetimibe 10 mg tablet 10 mg PO DAILY #90 tabs 03/21/22 insulin glargine U-300 conc 300 48 unit (0.16 mL) subcut DAILY #6 04/21/22 unit/mL (3 mL) subcutaneous pen mL (Toujeo Max U-300 SoloStar) cephalexin 500 mg capsule 500 mg PO QID 7 days #28 caps 04/30/22 ibuprofen 600 mg tablet 600 mg PO Q8H PRN fever or pain 04/30/22 #14 tabs Allergies Allergy/AdvReac Type Severity Reaction Status Date / Time lisinopril [LISINOPRIL] AdvReac Unknown ITCHY EYES Verified 04/30/22 02:08 Review of Systems Review of Systems: Constitutional: No Fever, No Chills, No Fatigue, No Malaise ENT/Mouth: No Ear Pain, No Nasal Congestion, No sore throat, No Rhinorrhea, No Swallowing Difficulty Eyes: No Eye Pain, No Swelling, No Redness, No Vision Changes Cardiovascular: No Chest Pain, No SOB, No Dyspnea on Exertion, No Orthopnea, No Edema, No Palpitations Respiratory: No Cough, No Sputum, No Dyspnea Gastrointestinal: No Nausea, No Vomiting, No Diarrhea, No Constipation, No Abdominal pain Genitourinary: No Dysuria, No Urinary Frequency, No Hematuria, No Flank Pain Musculoskeletal: + joint pain, No Myalgias, + Joint Swelling Skin: No Skin Lesions, No rash Neuro: No Weakness, No Numbness, No Dizziness, No Headache Yes all other systems are reviewed and are negative Constitutional: Constitutional: Reports as per [facility] Past Medical History Attestation statement: The following information was validated with the patient. Medical History (HFpEF) heart failure with preserved ejection fraction Abnormal dexamethasone suppression test Acute on chronic heart failure with preserved ejection fraction (HFpEF) Acute on chronic kidney failure Anasarca Aortic stenosis Autoimmune thyroiditis BMI 45.0-49.9, adult CHF (congestive heart failure) CKD (chronic kidney disease) Congestive heart failure COVID-19 vaccine series completed Diabetes mellitus with hyperglycemia Diabetes type 2, uncontrolled Dyslipidemia, goal LDL below 100 Essential hypertension Hypokalemia Hypomagnesemia Kidney disease Morbid obesity due to excess calories Other specified hypothyroidism Syncope 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 Surgical History History of History of removal of calculus of renal pelvis through percutaneous nephrostomy Family History Family History Family/Other Diabetes Mother History of high blood pressure Father History of high blood pressure Maternal Grandmother History of high blood pressure Social History Social History Household Members: Spouse Housing: Apartment Are you a primary client care consultant to a significant other at home: No Do you presently have visiting nurse or other home services: No Alcohol intake: current Alcohol intake frequency: holidays/special occasions only Alcohol type: wine Patient Tobacco Use Status: Never used Tobacco Use of substances other than those prescribed or required for medical reasons: No Advance Directives: No Advance Directives Information Provided: No Patient : No service: No Current occupational status: disabled Physical Exam ED Vital Signs: Vital Signs - 24 hr 04/30/22 01:56 04/30/22 05:59 04/30/22 07:31 Temperature 97.3 F 98.2 F 98.3 F Pulse Rate 75 68 77 Respiratory Rate 17 Blood Pressure 147/70 H 132/67 147/70 H Pulse Oximetry 97 95 95 Oxygen Delivery Method Room Air Room Air Room Air BMI result Body Mass Index 45.4 Const General: cooperative, healthy appearing and no acute distress Orientation/consciousness: patient oriented x3 Limitations: no limitations HENMT Head: Yes normal to inspection and Yes atraumatic Ears: hearing grossly normal bilaterally General nose exam: Normal external nose present Face and sinus: Yes normal facial exam Eyes General: appearance normal, both eyes and all related structures EOM: EOMs intact bilaterally Neck Neck: Yes normal visual inspection and Yes no meningeal signs Resp Effort & Inspection: normal respiratory effort and no respiratory distress Auscultation: clear to auscultation bilaterally, no rales, no rhonchi and no wheezes Cardio Rate: regular rate Heart sounds: S1 normal heart sound present and S2 normal heart sound present GI Inspection: Yes normal to inspection Palpation (GI): Soft to palpation, nontender, no guarding and not rigid General: Yes no CVA tenderness Back/Spine/Pelvis Back: no CVA tenderness Skin Rashes: no rashes Wounds: no wounds Neuro General: patient oriented x3, tone normal and no meningeal signs Gait exam (Neuro): Normal gait present Extrem Other: Slight bilateral foot swelling, no pitting edema. No calf tenderness. Right index finger PIP with noted swelling, erythema and tenderness. No fluctuance/induration. Limited ROM secondary to pain. Neurovascularly intact Course Course Course Narrative: -[id number]--no leukocytosis. Acute on chronic CKD. CRP minimally elevated to 1.29 -UA infected > patient given p.o. Ceftin XR chest 1V IMPRESSION: No acute cardiopulmonary process. ? > Results discussed with patient, discussed Possibility of prescribing a short course of prednisone, although due to side effects & risk versus benefit will avoid prednisone prescription at this time. Will prescribe Keflex for possible cellulitis to finger. Discussed worrisome signs and symptoms and strict return precautions, and when to return to the emergency department. Patient reports she has follow-up with her PCP next week. They verbalized understanding and feel safe for discharge at this time. Medical Decision Making MDM Narrative Medical decision making narrative: 61-year-old female with past medical history of CHF with preserved EF, CKD, anasarca, aortic stenosis, diabetes, HLD, morbid obesity, hypothyroid, presenting to the ED complaining of bilateral feet swelling x1 week and right index finger swelling/erythema. On exam vital signs stable, NAD, nontoxic appearing, physical exam as above. Concern for arthritic flare vs CHF vs ?early cellulitis to finger. Lower suspicion for DVT. Lower suspicion for septic joint/arthritis plan: labs, CXR, UA Medical Records Medical records reviewed: Yes I reviewed the patient's medical records. Lab Data Lab results reviewed: Yes I reviewed the patient's lab results. Result diagrams: 04/30/22 08:47 04/30/22 08:47 Labs: Lab Results 04/30/22 04/30/22 04/30/22 Range/Units 08:41 08:47 08:47 WBC 9.1 (4.8-10.8) X10*3/uL RBC 4.88 (4.20-5.50) X10*6/uL Hgb 13.3 (12.0-16.0) g/dl Hct 40.8 (37.0-47.0) % MCV 83.6 (80.0-98.0) fL MCH 27.3 (27.0-33.0) pg MCHC 32.6 (31.0-35.0) g/dl RDW 13.6 (11.0-16.0) % Plt Count 269 (160-400) X10*3/uL MPV 11.0 (9.4-12.3) fL Immature Gran % (Auto) 0.3 (0.0-0.4) % Neut % (Auto) 72.4 (45-73) % Lymph % (Auto) 18.5 L (20-40) % Pickett % (Auto) 6.9 (2-11) % Eos % (Auto) 1.3 (0-4) % Baso % (Auto) 0.6 (0-2) % Lymph # (Auto) 1.7 (1.2-4.9) X10*3/uL [place]ett # (Auto) 0.6 (0.1-1.2) X10*3/uL Eos # (Auto) 0.1 (0.0-0.4) X10*3/uL Baso # (Auto) 0.1 (0.0-0.2) X10*3/uL Abs Immat Gran (auto) 0.03 (0.00-0.03) X10*3/uL Absolute Neuts (auto) 6.6 (2.0-8.3) x10*3/uL Absolute Nucleated RBC 0.000 (0.0-0.012) X10*3/uL Nucleated RBC % (auto) 0.0 (0.0-0.2) /100WBC Sodium 137 (135-145) mmol/L Potassium 4.2 (3.3-5.1) mmol/L Chloride 98 (96-108) mmol/L Carbon Dioxide 26 (22-29) mmol/L Anion Gap 17 (12-20) BUN 33 H (9-16) mg/dL Creatinine 1.81 H (0.5-1.4) mg/dL Estim Creat Clear Calc 38.7 Estimated GFR 28 Random Glucose 336 H (60-115) mg/dL Calcium 9.1 D (8.4-10.2) mg/dL Magnesium 1.9 (1.6-2.6) mg/dL Total Bilirubin 0.7 (0.0-1.0) mg/dL Direct Bilirubin 0.3 (0.0-0.5) mg/dL AST 21 (5-31) U/L ALT 21 (0-31) U/L Alkaline Phosphatase 72 (39-117) U/L C-Reactive Protein 1.29 H (< or = 0.50) mg/dL B-Natriuretic Peptide (<100) pg/mL Total Protein 7.8 (6.5-8.0) g/dL Albumin 4.0 (3.5-5.0) g/dL Urine Color YELLOW Urine Appearance CLOUDY Urine pH 6.0 (5.0-8.0) Ur Specific [place] >= 1.030 H (1.005-1.025) Urine Protein 2+ H (NEG-TRACE) MG/DL Urine Glucose (UA) 100 H (NEG) MG/DL Urine Ketones NEG (NEG) MG/DL Urine Blood 3+ H (NEG) Urine Nitrite NEG (NEG) Ur Leukocyte Esterase 2+ H (NEG) Urine RBC TNTC H (0) /HPF Urine WBC TNTC H (0-4) /HPF Ur Squamous Epith Cells 2+ /LPF Urine Bacteria 1+ /LPF 04/30/22 Range/Units 08:47 WBC (4.8-10.8) X10*3/uL RBC (4.20-5.50) X10*6/uL Hgb (12.0-16.0) g/dl Hct (37.0-47.0) % MCV (80.0-98.0) fL MCH (27.0-33.0) pg MCHC (31.0-35.0) g/dl RDW (11.0-16.0) % Plt Count (160-400) X10*3/uL MPV (9.4-12.3) fL Immature Gran % (Auto) (0.0-0.4) % Neut % (Auto) (45-73) % Lymph % (Auto) (20-40) % Pickett % (Auto) (2-11) % Eos % (Auto) (0-4) % Baso % (Auto) (0-2) % Lymph # (Auto) (1.2-4.9) X10*3/uL Pickett # (Auto) (0.1-1.2) X10*3/uL Eos # (Auto) (0.0-0.4) X10*3/uL Baso # (Auto) (0.0-0.2) X10*3/uL Abs Immat Gran (auto) (0.00-0.03) X10*3/uL Absolute Neuts (auto) (2.0-8.3) x10*3/uL Absolute Nucleated RBC (0.0-0.012) X10*3/uL Nucleated RBC % (auto) (0.0-0.2) /100WBC Sodium (135-145) mmol/L Potassium (3.3-5.1) mmol/L Chloride (96-108) mmol/L Carbon Dioxide (22-29) mmol/L Anion Gap (12-20) BUN (9-16) mg/dL Creatinine (0.5-1.4) mg/dL Estim Creat Clear Calc Estimated GFR Random Glucose (60-115) mg/dL Calcium (8.4-10.2) mg/dL Magnesium (1.6-2.6) mg/dL Total Bilirubin (0.0-1.0) mg/dL Direct Bilirubin (0.0-0.5) mg/dL AST (5-31) U/L ALT (0-31) U/L Alkaline Phosphatase (39-117) U/L C-Reactive Protein (< or = 0.50) mg/dL B-Natriuretic Peptide 90 (<100) pg/mL Total Protein (6.5-8.0) g/dL Albumin (3.5-5.0) g/dL Urine Color Urine Appearance Urine pH (5.0-8.0) Ur Specific [place] (1.005-1.025) Urine Protein (NEG-TRACE) MG/DL Urine Glucose (UA) (NEG) MG/DL Urine Ketones (NEG) MG/DL Urine Blood (NEG) Urine Nitrite (NEG) Ur Leukocyte Esterase (NEG) Urine RBC (0) /HPF Urine WBC (0-4) /HPF Ur Squamous Epith Cells /LPF Urine Bacteria /LPF Discharge Plan Discharge Clinical Impression: Arthritis Patient Disposition: Home, Self-Care Instructions: Osteoarthritis (ED) Additional Instructions: Your blood work was reassuring today in the emergency department. Elevate your legs. Consider wearing compression stockings. Keflex as an antibiotic, please take as prescribed for possible cellulitis today a single. Continue taking Tylenol Arthritis at home, in addition to start taking ibuprofen as prescribed If symptoms persist or worsen, he develops fever, persistent or worsening pain, worsening swelling, or shortness of breath return to the ED immediately Prescriptions: New cephalexin 500 mg capsule 500 mg PO QID 7 Days Qty: 28 0RF ibuprofen 600 mg tablet 600 mg PO Q8H PRN (Reason: fever or pain) Qty: 14 0RF No Action (DME) FreeStyle Lite Strips Strip See Rx Instructions .ROUTE .MEDSUPPLY Qty: 10 Rx Instructions: As directed pen needle, diabetic [Pentips] 32 gauge x 5/32 needle 1 ea miscellaneous QID Qty: 100 2RF pen needle, diabetic [Pentips] 32 gauge x 5/32 needle 1 ea miscellaneous .five times a day Qty: 150 11RF rosuvastatin 40 mg tablet 40 mg PO BEDTIME Qty: 90 1RF (DME) lancets [TRUEplus Lancets] 33 gauge misc See Rx Instructions .ROUTE .MEDSUPPLY Qty: 350 3RF Rx Instructions: 4 times a day Trulicity 3 mg/0.5 mL pen injector 3 mg subcut QWEEK 28 Days Qty: 2 4RF FreeStyle Lite Strips Strip 1 strip miscellaneous QID Qty: 400 3RF Humalog KwikPen Insulin 200 unit/mL (3 mL) insulin pen See Rx Instructions subcut TID Qty: 12 4RF Rx Instructions: 12-18 units with meals, 6 units hs snack subcut 3 times a day; levothyroxine 175 mcg tablet 175 mcg PO QAM Qty: 90 0RF ezetimibe 10 mg tablet 10 mg PO DAILY Qty: 90 3RF Toujeo Max U-300 SoloStar 300 unit/mL (3 mL) insulin pen 48 unit subcut DAILY Qty: 6 3RF ketotifen fumarate 0.025 % (0.035 %) drops 1 drp ophthalmic (eye) BID aspirin 81 mg tablet,delayed release (DR/EC) 81 mg PO DAILY@1200 amlodipine 10 mg tablet 10 mg PO DAILY@1200 diphenhydramine HCl [Banophen] 25 mg capsule 25 mg PO Q4-6H PRN (Reason: itch) hydroxyzine HCl 10 mg tablet 10 mg PO DAILY PRN (Reason: anxiety) loratadine 10 mg tablet 10 mg PO DAILY PRN (Reason: Allergic Symptoms) escitalopram oxalate 10 mg tablet 10 mg PO DAILY@1200 cholecalciferol (vitamin D3) 25 mcg (1,000 unit) tablet 25 mcg PO DAILY@1200 Cerovite Senior Tablet 1 tab PO DAILY isosorbide mononitrate 30 mg Tablet Extended Release 24 Hr 30 mg PO DAILY Qty: 30 0RF Protocol: Hold for SBP< HOLD for SBP < : 90 spironolactone 25 mg Tablet 25 mg PO DAILY Qty: 30 0RF Protocol: Hold for SBP< HOLD for SBP < : 90 furosemide 40 mg tablet 40 mg PO BID Qty: 60 0RF metoprolol succinate 100 mg Tablet Extended Release 24 Hr 100 mg PO BEDTIME Qty: 30 0RF Protocol: Hold for SBP/HR < HOLD for SBP < : 90 HOLD for HR < : 60 ondansetron 4 mg tablet,disintegrating 4 mg PO Q6H PRN (Reason: nausea and vomiting) Qty: 10 0RF alcohol swabs Pads, Medicated topical DAILY furosemide 20 mg tablet 20 mg PO DAILY polyethylene glycol 3350 [Miralax] 17 gram/dose powder 238 g PO ONCE Qty: 238 0RF Rx Instructions: As directed by gastroenterology department at [facility] melatonin 5 mg tablet 10 mg PO BEDTIME Cerovite Senior 0.4 mg-300 mcg- 250 mcg tablet 1 tab PO DAILY (DME) FreeStyle Phil 2 Kelford Misc See Rx Instructions .ROUTE .MEDSUPPLY Qty: 1 0RF Rx Instructions: As directed (DME) FreeStyle Phil 2 Sensor Kit See Rx Instructions .ROUTE .MEDSUPPLY Qty: 2 11RF Rx Instructions: As directed every 2 weeks Referrals: Fatmata Sky MD [Primary Care Provider] - 3 days
[2022-04-30 09:37] VITALS: BP 140/69; PULSE 73; RESP 18; O2SAT 97
[2022-04-30 09:50] LABS: Erythrocyte Sedimentation Rate 72 MM/HR (0-20)
== END 2022-04-30 10:12 | disposition home or self-care (01) ==
PROVIDERS: Physician Assistant; Emergency Provider Emergency Medicine; PCP Student in an Organized Health Care Education/Training Program
DX: M19.072 Primary osteoarthritis, left ankle and foot (principal); M19.071 Primary osteoarthritis, right ankle and foot; E11.22 Type 2 diabetes mellitus with diabetic chronic kidney disease; I13.0 Hypertensive heart and chronic kidney disease with heart failure and stage 1 through stage 4 chronic kidney disease, or unspecified chronic kidney disease; N18.9 Chronic kidney disease, unspecified; I50.30 Unspecified diastolic (congestive) heart failure; E66.01 Morbid (severe) obesity due to excess calories; Z68.42 Body mass index [BMI] 45.0-49.9, adult; E78.5 Hyperlipidemia, unspecified; Z79.02 Long term (current) use of antithrombotics/antiplatelets; Z79.4 Long term (current) use of insulin; Z79.82 Long term (current) use of aspirin; Z79.899 Other long term (current) drug therapy
CPT/HCPCS: 36415; 71045; 80048; 80076; 81001; 81003; 83735; 83880; 85025; 85652; 86140; 87086; 99283; 99284

== ENCOUNTER → 2022-05-05 10:01 | Outpatient (REF) | payer MEDICARE, MEDICAID, SELFPAY ==
--- NOTE | 2022-05-05 10:04 | CA_ITS ---
Transthoracic Echocardiogram Patient (Last, First, Middle): Kati Szymanski, Gender: Female Date of : 1960 Age: 61 Procedure Date: 05/05/2022 Procedure Type: Transthoracic Echocardiogram Location: OP Height: 157.48 cm Weight: 111.13 kg BSA: 2.08 m2 Heart Rate: bpm BP: 115 / 75 mmHg [place]: TO Referring MD: Raheem Schulte MD Medical Social Worker: Raheem Schulte MD Symptoms: I35.0 - Nonrheumatic aortic (valve) stenosis Study Quality: Fair ECG Rhythm: Sinus Conclusions: - 1. Normal LV systolic function with mild LVH with impaired relaxation filling pattern 2. Moderate to severe aortic stenosis 3. Severe mitral annular calcification 4. Normal RV systolic pressure 5. No pericardial effusion Findings Left Ventricle Normal left ventricular size and systolic function. There is mildly increased left ventricular wall thickness. The visually estimated ejection fraction is between 60-65%. Spectral Doppler is indicative of an impaired relaxation filling pattern. E/E prime ratio is between 8 and 15 consistent with indeterminate filling pressures. Right Ventricle Normal right ventricular cavity size and systolic function. Atria Both atria are normal in size. There is lipomatous hypertrophy of the interatrial septum. There is no evidence of interatrial shunt. Aortic Valve There is moderate calcification of the aortic valve. There is moderate to severe aortic valve stenosis. The peak aortic gradient is 42 mmHg.The mean gradient is 24 mmHg. The aortic valve area is 1.19 cm2. There is no aortic valve regurgitation. Mitral Valve There is moderate anterior and severe posterior mitral leaflet thickening. There is severe mitral annular calcification. There is trace mitral valve regurgitation. There is no mitral valve stenosis. Pulmonic Valve The pulmonic valve was not well visualized. Tricuspid Valve Likely normal tricuspid valve structure and function. There is trace tricuspid valve regurgitation. Normal right atrial pressure. There is no evidence of pulmonary hypertension. Great Vessels All visible segments of the aorta are normal in size. The pulmonary artery was not well visualized. Venous The inferior vena cava is normal in size and collapses greater than 50% with inspiration. Pericardium/Pleural There is no evidence of pericardial effusion. Prior Study Comparison No significant change compared to prior study dated: 10/07/2021. Measurements 2D Linear Measurements IVSd: 1.39 0.6-0.9/0.6-1.0 cm LVIDd: 4.92 3.9-5.3/4.2-5.9 cm LVIDd Index: 2.37 2.4-3.2/2.2-3.1 cm/m2 LVIDs: 3.44 2.0-3.6 cm LVPWd: 1.27 0.7-1.1 cm LA Diam: 4.50 2.7-3.8/3.0-4.0 cm LAIDs Index: 2.16 1.5-2.3 cm/m2 LV Mass: 329.08 67-162/88-224 g LV Mass Index: 158.21 43-95/49-115 g/m2 LVOT Diam: 2.00 3.0+(-)1.3 cm 2D Systolic Function EF 4C: 66.00 >55% EF 2C: 61.50 >55% EF BiP: 63.00 >55% Mitral Valve MV VTI: 0.54 MV Pk Jacinto: 1.47 MV Mn Jacinto: 0.83 MV Pk Grad: 9.00 MV Mn Grad: 3.00 MV Pk E: 1.27 MV PK A: 1.24 MV Decel Time: 367.00 E/A: 1.00 E'Lateral: 3.70 E'Medial: 2.72 E/E' Med: 46.70 E/E' Lat: 34.30 PHT: 107.00 MVA PHT: 2.06 MVA Continuity: 1.69 Decel Rock: 3.45 Aortic Valve AoV Pk Jacinto: 3.23 AoV Mn Jacinto: 2.29 AoV VTI: 0.77 AoV Pk Grad: 42.00 Aov Mn Grad: 24.00 VICTOR MANUEL Cont.VTI: 1.19 VICTOR MANUEL Planim: 1.25 LVOT LVOT Pk Jacinto: 1.17 LVOT Mn Jacinto: 0.71 LVOT VTI: 0.29 LVOT Pk Grad: 5.00 LVOT Mn Grad: 2.00 LVOT Diam: 2.00 LVOT Area: 3.14 Diastolic Function MV Pk E: 1.27 MV Pk A: 1.24 E/A: 1.00 E'Medial: 2.72 E/E' Med: 46.70 E' Laterial: 3.70 E/E' Lat: 34.30 Right Ventricle TAPSE (mm): 20.70 TVS' Jacinto: 12.90 Tricuspid Valve TR Pk Jacinto: 2.52 TR Pk Grad: 25.00 RA Press: 3.00 RVSP: 28.00 Great Vessels Aorta Sinus of Valsalva: 2.76 2.0-3.[address] [place]: 1.87 1.7-3.4 cm Ao Asc: 3.20 2.1-3.4 cm Updated in Other Vendor System with Status of Final Raheem Schulte MD electronically signed on 05/05/2022 3:30:23 PM with status of Final
== END ==
LOC: HO.CARD 10:01
PROVIDERS: PCP Student in an Organized Health Care Education/Training Program; Visit Provider Internal Medicine Cardiovascular Disease
DX: I35.0 Nonrheumatic aortic (valve) stenosis (principal)
CPT/HCPCS: 93306

== ENCOUNTER → 2022-05-21 10:05 | Outpatient (BNVA) | payer MEDICARE, SELFPAY | PROVIDERS: PCP Student in an Organized Health Care Education/Training Program; Visit Provider Internal Medicine Cardiovascular Disease | DX: I50.30 Unspecified diastolic (congestive) heart failure (principal); I35.0 Nonrheumatic aortic (valve) stenosis; Z79.82 Long term (current) use of aspirin; Z79.899 Other long term (current) drug therapy | CPT/HCPCS: 99212 ==

== ENCOUNTER → 2023-01-28 13:54 | Outpatient (BNVA) | payer MEDICARE, SELFPAY | PROVIDERS: PCP Student in an Organized Health Care Education/Training Program; Referring Provider Student in an Organized Health Care Education/Training Program; Visit Provider Internal Medicine Cardiovascular Disease | DX: I50.30 Unspecified diastolic (congestive) heart failure (principal); I35.0 Nonrheumatic aortic (valve) stenosis | CPT/HCPCS: 93005; 99212 ==

== ENCOUNTER 2023-05-20 20:19 | Inpatient (IN) | payer MEDICARE, MEDICAID, SELFPAY ==
--- NOTE | 2023-05-20 | ECG_ITS ---
Test Reason : SYNCOPE Blood Pressure : / mmHG Vent. Rate : 071 BPM Atrial Rate : 071 BPM P-R Int : 160 ms QRS Dur : 084 ms QT Int : 410 ms P-R-T Axes : 034 -08 027 degrees QTc Int : 445 ms Sinus rhythm with Premature supraventricular complexes Otherwise normal ECG When compared with ECG of 26-AUG-2021 18:32, Premature supraventricular complexes are now Present Nonspecific T wave abnormality no longer evident in Lateral leads Heart rate has increased Referred By: Generic ED Physician Electronically Signed By:ANIL CORRAL
--- NOTE | ~2023-05-20 | XR_ITS ---
EXAMINATION: XR CHEST CLINICAL INFORMATION: Cough. COMPARISON: 04/30/2022 TECHNIQUE: Frontal view of the chest was obtained. FINDINGS: Linear atelectasis is suspected in the medial aspect of the lung bases bilaterally. No appreciable airspace consolidation. No pneumothorax or pleural effusion. Cardiac and mediastinal contours are normal. Mild calcific atherosclerosis in the thoracic aorta. Osteoarthritis is present in the acromioclavicular and glenohumeral joints. Degenerative spondylosis in the thoracic spine XR/XR chest 1V IMPRESSION: No acute cardiopulmonary process.
--- NOTE | ~2023-05-20 | CT_ITS ---
EXAMINATION: CT HEAD WITHOUT CONTRAST CLINICAL INFORMATION: Fall. Head injury. COMPARISON: 01/31/2018 TECHNIQUE: Contiguous axial imaging was performed from the skull base to vertex without intravenous contrast. This CT examination was performed using dose optimization techniques as appropriate, variously including the following: * Automated exposure control * Adjustment of mA and/or kV according to patient size (this includes techniques or standardized protocols for targeted exams where dose is matched to indication/reason for exam; i.e. extremities or head) Use of iterative reconstruction technique DLP: 693 mGy-cm. FINDINGS: There is no evidence of acute intracranial hemorrhage or territorial infarction. No abnormal mass effect or midline shift is seen. [place] to white matter differentiation is well preserved. No extra-axial fluid collections are identified. No hydrocephalus. Proportional prominence of the ventricles and sulcal spaces is consistent with mild volume loss. Patchy periventricular and deep white matter hypoattenuation is consistent with mild small vessel ischemic changes. The osseous structures and soft tissues are normal. The mastoid air cells and visualized portions of the paranasal sinuses are well aerated. CT/CT head/brain wo IV con IMPRESSION: No acute intracranial pathology. Mild volume loss with small vessel ischemic change.
[2023-05-20 20:31] VITALS: BP 131/52; BP 147/52; PULSE 73; PULSE 86; RESP 16; TEMP 38.9; O2SAT 95; O2SAT 98; BMI 49.8
[2023-05-20 20:37] LABS: Glucose, Whole Blood 378 mg/dL (60-115)
[2023-05-20 20:41] VITALS: BP 131/52; PULSE 73; RESP 16; TEMP 38.9; O2SAT 95
--- NOTE | 2023-05-20 20:41 | PC.NURSE ---
pt a&ox3, vss aside from pt being hyperthermic (102.1 - oral), pt coming in from home after becoming dizzy/lightheaded and falling to the ground. +headstrike, -LOC, -thinners. pt denies any symptoms mariella. pt verbalizing 5/10 pain in the right shoulder and bilateral hands - pt has hx of arthritis. pt is also insulin dependent - has not taken any insulin today. last POC was 386mg/dL. purewick applied to pt d/t incontinence. pt resting comfortably and in no apparent distress. call adkins placed within reach.
[2023-05-20] MEDS: Acetaminophen 325 MG TABLET 650 MG PO (21:37)
[2023-05-20 21:49] LABS: MANUAL DIFF FLAG NO
[2023-05-20 21:57] LABS: Basophils Absolute Auto 0.1 X10*3/uL (0.0-0.2); Basophils Percent Auto 0.5 % (0-2); Eosinophils Percent Auto 0.2 % (0-4); Hematocrit 37.8 % (37.0-47.0); Hemoglobin 12.6 g/dl (12.0-16.0); Imm Gran Abs Auto 0.05 X10*3/uL (0.00-0.03); Imm Gran Pct Auto 0.4 % (0.0-0.4); Lymphocytes Percent Auto 7.9 % (20-40); Mean Corpuscular HGB Conc 33.3 g/dl (31.0-35.0); Mean Corpuscular Hemoglobin 28.4 pg (27.0-33.0); Mean Corpuscular Volume 85.3 fL (80.0-98.0); Mean Platelet Volume 11.2 fL (9.4-12.3); Monocytes Absolute Auto 1.1 X10*3/uL (0.1-1.2); Neutrophils Absolute Auto 10.9 x10*3/uL (2.0-8.3); Platelet Count 221 X10*3/uL (160-400); Red Blood Count 4.43 X10*6/uL (4.20-5.50); Red Cell Distribution Width 13.6 % (11.0-16.0); White Blood Count 13.1 X10*3/uL (4.8-10.8)
[2023-05-20 22:02] LABS: Lactic Acid 1.8 mmol/L (0.5-2.0)
[2023-05-20 22:10] LABS: Alanine Aminotransferase 19 U/L (0-31); Albumin Level 3.6 g/dL (3.5-5.0); Alkaline Phosphatase 73 U/L (39-117); Anion Gap 19 (12-20); Aspartate Amino Transferase 17 U/L (5-31); Bilirubin Direct 0.3 mg/dL (0.0-0.5); Bilirubin Total 0.6 mg/dL (0.0-1.0); Blood Urea Nitrogen 46 mg/dL (9-16); Calcium 9.2 mg/dL (8.4-10.2); Carbon Dioxide 21 mmol/L (22-29); Chloride 97 mmol/L (96-108); Creatinine Clr Calc Pharmacy 32.2; Estimated Glomerular Filt Rate 22; Glucose Random 473 mg/dL (60-115); Potassium 4.4 mmol/L (3.3-5.1); Sodium 133 mmol/L (135-145); Total Protein 7.9 g/dL (6.5-8.0)
--- NOTE | 2023-05-20 23:01 | ED_ITS ---
HPI - Fall General Chief Complaint: Fall Stated Complaint: FALL W/HYPERGLYCEMIA PER EMS Time Seen by Provider: 05/20/23 22:47 Source: patient Mode of arrival: EMS Limitations: no limitations History of Present Illness HPI Narrative: 62-year-old female with history of diabetes mellitus, hyperlipidemia, hypertension, congestive heart failure with normal EF, aortic stenosis, chronic kidney disease who presents emergency department for evaluation fatigue, loss of appetite, weakness, dizziness and near syncopal episode. The patient states she woke up this morning and just was not feeling well. She states she felt hot at home but did not take her temperature. She denied chills she states that she was not able to eat food but was able to drink small amounts of fluid she tried to eat at around noon in this caused her to have nausea and she vomited once. Patient stated in bed and was having difficulty getting out of bed secondary to weakness. At 19:00 hours she got up to go to the bathroom, she felt very dizzy and lightheaded as if she was going to pass out she then states that she fell into the wall and lowered herself to the floor. She did hit her head on the wall but is not sure if she lost consciousness. She was unable to get up off the floor sore family called an ambulance she was brought to the emergency department. The patient states she does take insulin 3 times a day and at night on a sliding scale and she did take her insulin earlier today. She states that she knows that her glucose was high in the 500 range prior to coming to the emergency department. She denied rhinorrhea, sore throat, she has had occasional cough, she denied chest pain. She states she does feel short of breath and has dyspnea on exertion but states this is chronic. She does have nausea and had 1 episode of vomiting today. She denied dysuria but she has noted urinary frequency. She denied dark black stools or tarry stools. Related Data Home Medications Medication Instructions Recorded Confirmed amlodipine 10 mg tablet 10 mg PO DAILY@1200 08/06/20 01/28/23 aspirin 81 mg tablet,delayed 81 mg PO DAILY@1200 08/06/20 01/28/23 release cholecalciferol (vitamin D3) 25 25 mcg PO DAILY@1200 08/06/20 01/28/23 mcg (1,000 unit) tablet diphenhydramine HCl 25 mg capsule 25 mg PO Q4-6H PRN itch 08/06/20 01/28/23 (Banophen) escitalopram oxalate 10 mg tablet 10 mg PO DAILY@1200 08/06/20 01/28/23 hydroxyzine HCl 10 mg tablet 10 mg PO DAILY PRN anxiety 08/06/20 01/28/23 ketotifen fumarate 0.025 % (0.035 1 drp ophthalmic (eye) BID 08/06/20 01/28/23 %) eye drops loratadine 10 mg tablet 10 mg PO DAILY PRN Allergic 08/06/20 01/28/23 Symptoms tlckbdpzwsrm-lhupbuqy-dsduqs 1 tab PO DAILY 08/06/20 01/28/23 tablet (Cerovite Senior) blood sugar diagnostic (FreeStyle #10 ea 10/01/20 01/28/23 Lite Strips) alcohol swabs pad topical DAILY 10/18/20 01/28/23 melatonin 5 mg tablet 10 mg PO BEDTIME 10/22/21 01/28/23 pvimapit-ilg-qgufd acid 0.4 1 tab PO DAILY 01/29/22 01/28/23 mg-lycopene 300 mcg-lutein 250 mcg tablet (Cerovite Senior) furosemide 20 mg tablet 20 mg PO DAILY PRN 05/21/22 01/28/23 Previous Rx's Medication Instructions Recorded furosemide 40 mg tablet 40 mg PO BID #60 tabs 08/16/20 isosorbide mononitrate 30 mg 30 mg PO DAILY #30 tabs 08/16/20 tablet,extended release 24 hr metoprolol succinate 100 mg 100 mg PO BEDTIME #30 tabs 08/16/20 tablet,extended release 24 hr spironolactone 25 mg tablet 25 mg PO DAILY #30 tabs 08/16/20 pen needle, diabetic 32 gauge x 1 ea miscellaneous QID #100 ea 10/01/20 (Pentips) polyethylene glycol 3350 17 238 g PO ONCE #238 grams 07/09/21 gram/dose oral powder (Miralax) rosuvastatin 40 mg tablet 40 mg PO BEDTIME #90 tabs 08/21/21 TRUEplus Lancets 33 gauge (lancets) #350 ea 01/09/22 blood sugar diagnostic (FreeStyle 1 strip miscellaneous QID for 01/21/22 Lite Strips) diabetes mellitus #400 strips flash glucose scanning reader #1 ea 01/29/22 (FreeStyle Phil 2 [place]) flash glucose sensor (FreeStyle #2 ea 01/29/22 Phil 2 Sensor kit) cephalexin 500 mg capsule 500 mg PO QID 7 days #28 caps 04/30/22 ibuprofen 600 mg tablet 600 mg PO Q8H PRN fever or pain 04/30/22 #14 tabs levothyroxine 175 mcg tablet 175 mcg PO QAM #90 tabs 05/26/22 dulaglutide 3 mg/0.5 mL 3 mg (0.5 mL) subcut QWEEK 28 days 06/05/22 subcutaneous pen injector #2 mL (Trulicity) insulin lispro 200 unit/mL (3 mL) See Rx Instructions subcut TID #12 07/31/22 subcutaneous pen (Humalog KwikPen mL U-200 Insulin) insulin glargine U-300 conc 300 48 unit (0.16 mL) subcut DAILY #6 08/14/22 unit/mL (3 mL) subcutaneous pen mL (Toujeo Max U-300 SoloStar) pen needle, diabetic 32 gauge x 1 ea miscellaneous .five times a 08/14/22 (Pentips) day #150 ea ezetimibe 10 mg tablet 10 mg PO DAILY #90 tabs 03/18/23 Allergies Allergy/AdvReac Type Severity Reaction Status Date / Time lisinopril [LISINOPRIL] AdvReac Unknown ITCHY EYES Verified 05/20/23 20:30 Review of Systems Review of Systems: Yes all other systems are reviewed and are negative [facility] Past Medical History Medical History (HFpEF) heart failure with preserved ejection fraction Abnormal dexamethasone suppression test Acute on chronic heart failure with preserved ejection fraction (HFpEF) Acute on chronic kidney failure Anasarca Aortic stenosis Autoimmune thyroiditis BMI 45.0-49.9, adult CHF (congestive heart failure) CKD (chronic kidney disease) Congestive heart failure COVID-19 vaccine series completed Diabetes mellitus with hyperglycemia Diabetes type 2, uncontrolled Dyslipidemia, goal LDL below 100 Essential hypertension Hypokalemia Hypomagnesemia Kidney disease Morbid obesity due to excess calories Other specified hypothyroidism Syncope 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 Surgical History History of History of removal of calculus of renal pelvis through percutaneous nephrostomy Family History Family History Family/Other Diabetes Mother History of high blood pressure Father History of high blood pressure Maternal Grandmother History of high blood pressure Social History Social History Household Members: Spouse Housing: Apartment Are you a primary patient care specialist to a significant other at home: No Do you presently have visiting nurse or other home services: No Alcohol intake: current Alcohol intake frequency: a few times a week Alcohol ty pe: wine Patient Tobacco Use Status: Never used Tobacco Smoked in Last 30 Days: No Use of substances other than those prescribed or required for medical reasons: No Advance Directives: No Advance Directives Information Provided: No Patient : No service: No Current occupational status: disabled Physical Exam Vital Signs: Vital Signs: Last Vital Signs Temp 99.3 F 05/21/23 02:32 Pulse 64 05/21/23 02:32 Resp 22 H 05/21/23 02:32 BP 128/49 L 05/21/23 02:32 Pulse Ox 93 05/21/23 02:32 O2 Del Method Room Air 05/21/23 02:32 BMI result Body Mass Index 49.8 Vital signs revealed temperature of a 102.5 degrees otherwise were unremarkable Exam: General: Awake, alert in no distress, answers all questions appropriately, elevated BMI 49.8 Head: Normocephalic, atraumatic EENT: PERRL, Lids normal, sclera normal, conjunctiva normal, nose normal , ears normal, throat without erythema or exudates Neck: Supple, no adenopathy, trachea midline and nontender Lung: breath sounds symmetric, no wheezing, rales or rhonchi Chest: symmetric movement, nontender Heart: regular rate and rhythm, normal S1, S2 no murmurs or rubs Abdomen: soft, non-tender, nondistended, normal bowel sounds Back: no vertebral tenderness, no CVAT Extremities: no deformities, moves all extremities symmetrically Skin: no rashes, no lesion, normal color and warmth Neuro: Awake, alert, oriented, normal speech, cranial nerves intact, moves all extremities symmetrically Psych: Pleasant, cooperative Medications Administered Discontinued Medications Generic Name Dose Route Start Last Admin Trade Name Hussein PRN Reason Stop Dose Admin Acetaminophen 650 mg 05/20/23 21:04 05/20/23 21:37 Acetaminophen 325 Mg Tablet PO 05/20/23 21:05 650 mg ONCE ONE Administration Sodium Chloride 1,000 mls @ 999 mls/hr 05/20/23 23:16 05/21/23 00:27 Ns IV 05/21/23 00:16 999 mls/hr .Q1H1M STA Administration Sodium Chloride 1,000 mls @ 999 mls/hr 05/21/23 03:23 05/21/23 04:24 Ns IV 05/21/23 04:23 999 mls/hr .Q1H1M STA Administration Ceftriaxone Sodium 1 gm/ 50 mls @ 100 mls/hr 05/21/23 04:00 05/21/23 04:23 Sodium Chloride IV 05/21/23 04:29 100 mls/hr Q24H KHARI Administration Ibuprofen 400 mg 05/20/23 23:18 05/21/23 00:25 Ibuprofen 400 Mg Tablet PO 05/20/23 23:19 400 mg ONCE ONE Administration Insulin Glargine 25 unit 05/21/23 03:42 05/21/23 04:23 Insulin Glargine,Hum.Rec.Anlog 100 Unit/Ml 10 Ml Vial SUBCUT 05/21/23 03:43 25 unit ONCE ONE Administration Insulin Human Regular 12 unit 05/20/23 23:16 05/21/23 00:24 Insulin Regular, Human 100 Unit/Ml 3 Ml Vial 0.1 unit/kg (12 unit) 05/20/23 23:17 12 unit IVPUSH Administration ONCE ONE Medical Decision Making Medical Decision Making MDM Narrative: 62-year-old female with history of diabetes mellitus, hyperlipidemia, hypertension, congestive heart failure with normal EF, aortic stenosis, chronic kidney disease who presents emergency department for evaluation fatigue, loss of appetite, weakness, dizziness and near syncopal episode that occurred and 19:00 hours causing the patient to fall against the wall, hit her head and lower herself to the bedroom floor. She is too weak to get off the floor and was brought to emergency department by ambulance. Emergency department she was noted to be febrile with a temperature of a 102 degrees F. patient's physical examination was otherwise unremarkable. Following evaluation was ordered on the patient CBC, BMP, liver panel, troponin, glucose, urinalysis, COVID-19, influenza, lactic acid, urinalysis by straight cath, blood cultures x2, chest x- ray, EKG, CT scan of the brain without IV contrast 0322 Patient's laboratory evaluate revealed a normal WBC, normal lactic acid, elevated high sensitive troponin I and urinalysis microscopic which is concerning for urinary tract infection. CT scan of the brain and chest x-ray were unremarkable pain I ordered ceftriaxone 1 g IV for urinary tract infection Patient's repeat point of care glucose was 309, I ordered a 2 L of normal saline IV. Given her weakness, elevated glucose and urinary tract infection, I will discuss admission with the covering hospitalist. 0509: Patient's 1st troponin was 39.8 and repeat troponin increased by greater than 50% delta to 95.6. I did discuss this with the covering property management bookkeeper over [employer], Dr. Schulte. He felt that the presentation was a typical for acute coronary syndrome and felt the patient could be managed at this facility. He recommended starting the patient on low-dose heparin which was ordered. I also ordered aspirin 324 mg orally. I did update the hospitalist on the property management bookkeeper recommendations. Differential Diagnosis Differential Diagnoses: The differential diagnosis associated with the presentation includes Differential location includes but is not limited to influenza, COVID-19, viral syndrome, pneumonia, urinary tract infection, volume depletion, dehydration, hyperglycemia, electrolyte abnormality, anemia, myocardial infarction, myocardial ischemia Admission/Observation Consideration of admission/observation: Escalation of care including admission/observation considered Lab Data MDM Lab Attestation statement: I reviewed the patient's lab results. My interpretation patient's laboratory evaluation as follows: Elevated white blood count 00816. Low bicarb 21 elevated BUN 46 consistent with her chronic kidney disease, elevated BUN at 2.27 above her baseline. Elevated glucose 473. Lactic acid was normal at 1.8. Patient's high sensitive troponin I was elevated 39.8 , I ordered a repeat at 0321. Repeat point of care glucose improved to 309 after above treatment. Urinalysis straight cath specimen revealed 3+ blood, negative nitrates, positive leukocyte esterase, microscopic revealed greater than 20 RBCs greater than 50 WBCs, 11-20 squamous cells 4+ bacteria 1st trip at 21:43 hours was 39.8. Repeat troponin at 00:34 hours was 95.6 05/20/23 21:43 05/20/23 21:43 Labs: Lab Results 05/20/23 05/20/23 05/20/23 Range/Units 20:32 21:43 21:43 WBC 13.1 H (4.8-10.8) X10*3/uL RBC 4.43 (4.20-5.50) X10*6/uL Hgb 12.6 (12.0-16.0) g/dl Hct 37.8 (37.0-47.0) % MCV 85.3 (80.0-98.0) fL MCH 28.4 (27.0-33.0) pg MCHC 33.3 (31.0-35.0) g/dl RDW 13.6 (11.0-16.0) % Plt Count 221 (160-400) X10*3/uL MPV 11.2 (9.4-12.3) fL Immature Gran % (Auto) 0.4 (0.0-0.4) % Neut % (Auto) 83.0 H (45-73) % Lymph % (Auto) 7.9 L (20-40) % [place] % (Auto) 8.0 (2-11) % Eos % (Auto) 0.2 (0-4) % Baso % (Auto) 0.5 (0-2) % Lymph # (Auto) 1.0 L (1.2-4.9) X10*3/uL [place] # (Auto) 1.1 (0.1-1.2) X10*3/uL Eos # (Auto) 0.0 (0.0-0.4) X10*3/uL Baso # (Auto) 0.1 (0.0-0.2) X10*3/uL Abs Immat Gran (auto) 0.05 H (0.00-0.03) X10*3/uL Absolute Neuts (auto) 10.9 H (2.0-8.3) x10*3/uL Absolute Nucleated RBC 0.000 (0.0-0.012) X10*3/uL Nucleated RBC % (auto) 0.0 (0.0-0.2) /100WBC VBG pH (7.32-7.43) VBG pCO2 mmHg VBG pO2 mmHg VBG HCO3 (22-26) mmol/L VBG O2 Saturation % VBG Base Excess mmol/L Sodium 133 L (135-145) mmol/L Potassium 4.4 (3.3-5.1) mmol/L Chloride 97 (96-108) mmol/L Carbon Dioxide 21 L (22-29) mmol/L Anion Gap 19 (12-20) BUN 46 H (9-16) mg/dL Creatinine 2.27 H (0.5-1.4) mg/dL Estim Creat Clear Calc 32.2 Estimated GFR 22 POC Glucose 378 H* (60-115) mg/dL Random Glucose 473 H* (60-115) mg/dL Lactic Acid (0.5-2.0) mmol/L Calcium 9.2 (8.4-10.2) mg/dL Total Bilirubin 0.6 (0.0-1.0) mg/dL Direct Bilirubin 0.3 (0.0-0.5) mg/dL AST 17 (5-31) U/L ALT 19 (0-31) U/L Alkaline Phosphatase 73 (39-117) U/L Troponin I High Sens (<3.5-17.0) ng/L Total Protein 7.9 (6.5-8.0) g/dL Albumin 3.6 (3.5-5.0) g/dL Urine Color Urine Appearance Urine pH (5.0-9.0) Ur Specific [place] (1.005-1.025) Urine Protein (Neg-Trace) mg/dL Urine Glucose (UA) (Negative) mg/dL Urine Ketones (Negative) mg/dL Urine Blood (Negative) Urine Nitrite (Negative) Ur Leukocyte Esterase (Negative) Urine RBC (0-2) /HPF Urine WBC (0-5) /HPF Ur Squamous Epith Cells (0-2) /HPF Urine Bacteria (None Seen) Hyaline Casts (0-2) /LPF Granular Casts COVID-19 (NELLY) (Negative) COVID-19 Clin Com Influenza Type A (MAAME) (Negative) Influenza Type B (MAAME) (Negative) Influenza A & B Note 05/20/23 05/20/23 05/20/23 Range/Units 21:43 21:43 23:31 WBC (4.8-10.8) X10*3/uL RBC (4.20-5.50) X10*6/uL Hgb (12.0-16.0) g/dl Hct (37.0-47.0) % MCV (80.0-98.0) fL MCH (27.0-33.0) pg MCHC (31.0-35.0) g/dl RDW (11.0-16.0) % Plt Count (160-400) X10*3/uL MPV (9.4-12.3) fL Immature Gran % (Auto) (0.0-0.4) % Neut % (Auto) (45-73) % Lymph % (Auto) (20-40) % [place] % (Auto) (2-11) % Eos % (Auto) (0-4) % Baso % (Auto) (0-2) % Lymph # (Auto) (1.2-4.9) X10*3/uL [place] # (Auto) (0.1-1.2) X10*3/uL Eos # (Auto) (0.0-0.4) X10*3/uL Baso # (Auto) (0.0-0.2) X10*3/uL Abs Immat Gran (auto) (0.00-0.03) X10*3/uL Absolute Neuts (auto) (2.0-8.3) x10*3/uL Absolute Nucleated RBC (0.0-0.012) X10*3/uL Nucleated RBC % (auto) (0.0-0.2) /100WBC VBG pH (7.32-7.43) VBG pCO2 mmHg VBG pO2 mmHg VBG HCO3 (22-26) mmol/L VBG O2 Saturation % VBG Base Excess mmol/L Sodium (135-145) mmol/L Potassium (3.3-5.1) mmol/L Chloride (96-108) mmol/L Carbon Dioxide (22-29) mmol/L Anion Gap (12-20) BUN (9-16) mg/dL Creatinine (0.5-1.4) mg/dL Estim Creat Clear Calc Estimated GFR POC Glucose (60-115) mg/dL Random Glucose (60-115) mg/dL Lactic Acid 1.8 (0.5-2.0) mmol/L Calcium (8.4-10.2) mg/dL Total Bilirubin (0.0-1.0) mg/dL Direct Bilirubin (0.0-0.5) mg/dL AST (5-31) U/L ALT (0-31) U/L Alkaline Phosphatase (39-117) U/L Troponin I High Sens 39.8 H (<3.5-17.0) ng/L Total Protein (6.5-8.0) g/dL Albumin (3.5-5.0) g/dL Urine Color Urine Appearance Urine pH (5.0-9.0) Ur Specific [place] (1.005-1.025) Urine Protein (Neg-Trace) mg/dL Urine Glucose (UA) (Negative) mg/dL Urine Ketones (Negative) mg/dL Urine Blood (Negative) Urine Nitrite (Negative) Ur Leukocyte Esterase (Negative) Urine RBC (0-2) /HPF Urine WBC (0-5) /HPF Ur Squamous Epith Cells (0-2) /HPF Urine Bacteria (None Seen) Hyaline Casts (0-2) /LPF Granular Casts COVID-19 (NELLY) (Negative) COVID-19 Clin Com Influenza Type A (MAAME) Negative (Negative) Influenza Type B (MAAME) Negative (Negative) Influenza A & B Note See Note 05/20/23 05/21/23 05/21/23 Range/Units 23:31 00:56 01:55 WBC (4.8-10.8) X10*3/uL RBC (4.20-5.50) X10*6/uL Hgb (12.0-16.0) g/dl Hct (37.0-47.0) % MCV (80.0-98.0) fL MCH (27.0-33.0) pg MCHC (31.0-35.0) g/dl RDW (11.0-16.0) % Plt Count (160-400) X10*3/uL MPV (9.4-12.3) fL Immature Gran % (Auto) (0.0-0.4) % Neut % (Auto) (45-73) % Lymph % (Auto) (20-40) % [place] % (Auto) (2-11) % Eos % (Auto) (0-4) % Baso % (Auto) (0-2) % Lymph # (Auto) (1.2-4.9) X10*3/uL [place] # (Auto) (0.1-1.2) X10*3/uL Eos # (Auto) (0.0-0.4) X10*3/uL Baso # (Auto) (0.0-0.2) X10*3/uL Abs Immat Gran (auto) (0.00-0.03) X10*3/uL Absolute Neuts (auto) (2.0-8.3) x10*3/uL Absolute Nucleated RBC (0.0-0.012) X10*3/uL Nucleated RBC % (auto) (0.0-0.2) /100WBC VBG pH (7.32-7.43) VBG pCO2 mmHg VBG pO2 mmHg VBG HCO3 (22-26) mmol/L VBG O2 Saturation % VBG Base Excess mmol/L Sodium (135-145) mmol/L Potassium (3.3-5.1) mmol/L Chloride (96-108) mmol/L Carbon Dioxide (22-29) mmol/L Anion Gap (12-20) BUN (9-16) mg/dL Creatinine (0.5-1.4) mg/dL Estim Creat Clear Calc Estimated GFR POC Glucose 309 H (60-115) mg/dL Random Glucose (60-115) mg/dL Lactic Acid (0.5-2.0) mmol/L Calcium (8.4-10.2) mg/dL Total Bilirubin (0.0-1.0) mg/dL Direct Bilirubin (0.0-0.5) mg/dL AST (5-31) U/L ALT (0-31) U/L Alkaline Phosphatase (39-117) U/L Troponin I High Sens (<3.5-17.0) ng/L Total Protein (6.5-8.0) g/dL Albumin (3.5-5.0) g/dL Urine Color Dark Yellow Urine Appearance Turbid Urine pH 5.5 (5.0-9.0) Ur Specific [place] 1.020 (1.005-1.025) Urine Protein 300 (3+) H (Neg-Trace) mg/dL Urine Glucose (UA) 250 H (Negative) mg/dL Urine Ketones Trace (Negative) mg/dL Urine Blood Large (3+) H (Negative) Urine Nitrite Negative (Negative) Ur Leukocyte Esterase Moderate (2+) H (Negative) Urine RBC >20 H (0-2) /HPF Urine WBC >50 H (0-5) /HPF Ur Squamous Epith Cells 11-20 (0-2) /HPF Urine Bacteria 4+ (None Seen) Hyaline Casts >20 (0-2) /LPF Granular Casts Present COVID-19 (NELLY) Negative (Negative) COVID-19 Clin Com See Note Influenza Type A (MAAME) (Negative) Influenza Type B (MAAME) (Negative) Influenza A & B Note 05/21/23 05/21/23 05/21/23 Range/Units 03:44 03:47 04:21 WBC (4.8-10.8) X10*3/uL RBC (4.20-5.50) X10*6/uL Hgb (12.0-16.0) g/dl Hct (37.0-47.0) % MCV (80.0-98.0) fL MCH (27.0-33.0) pg MCHC (31.0-35.0) g/dl RDW (11.0-16.0) % Plt Count (160-400) X10*3/uL MPV (9.4-12.3) fL Immature Gran % (Auto) (0.0-0.4) % Neut % (Auto) (45-73) % Lymph % (Auto) (20-40) % [place] % (Auto) (2-11) % Eos % (Auto) (0-4) % Baso % (Auto) (0-2) % Lymph # (Auto) (1.2-4.9) X10*3/uL [place] # (Auto) (0.1-1.2) X10*3/uL Eos # (Auto) (0.0-0.4) X10*3/uL Baso # (Auto) (0.0-0.2) X10*3/uL Abs Immat Gran (auto) (0.00-0.03) X10*3/uL Absolute Neuts (auto) (2.0-8.3) x10*3/uL Absolute Nucleated RBC (0.0-0.012) X10*3/uL Nucleated RBC % (auto) (0.0-0.2) /100WBC VBG pH 7.44 H (7.32-7.43) VBG pCO2 35 mmHg VBG pO2 63 mmHg VBG HCO3 24 (22-26) mmol/L VBG O2 Saturation 89.0 % VBG Base Excess 0.6 mmol/L Sodium (135-145) mmol/L Potassium (3.3-5.1) mmol/L Chloride (96-108) mmol/L Carbon Dioxide (22-29) mmol/L Anion Gap (12-20) BUN (9-16) mg/dL Creatinine (0.5-1.4) mg/dL Estim Creat Clear Calc Estimated GFR POC Glucose 305 H (60-115) mg/dL Random Glucose (60-115) mg/dL Lactic Acid (0.5-2.0) mmol/L Calcium (8.4-10.2) mg/dL Total Bilirubin (0.0-1.0) mg/dL Direct Bilirubin (0.0-0.5) mg/dL AST (5-31) U/L ALT (0-31) U/L Alkaline Phosphatase (39-117) U/L Troponin I High Sens 95.6 H* D (<3.5-17.0) ng/L Total Protein (6.5-8.0) g/dL Albumin (3.5-5.0) g/dL Urine Color Urine Appearance Urine pH (5.0-9.0) Ur Specific [place] (1.005-1.025) Urine Protein (Neg-Trace) mg/dL Urine Glucose (UA) (Negative) mg/dL Urine Ketones (Negative) mg/dL Urine Blood (Negative) Urine Nitrite (Negative) Ur Leukocyte Esterase (Negative) Urine RBC (0-2) /HPF Urine WBC (0-5) /HPF Ur Squamous Epith Cells (0-2) /HPF Urine Bacteria (None Seen) Hyaline Casts (0-2) /LPF Granular Casts COVID-19 (NELLY) (Negative) COVID-19 Clin Com Influenza Type A (MAAME) (Negative) Influenza Type B (MAAME) (Negative) Influenza A & B Note Independent Interpretation I performed an independent interpretation of an: EKG and Plain X-Ray (Chest x- ray) Interpretation: My independent interpretation patient's one-view chest x-ray is as follows: No acute disease My independent interpretation patient's 12 EKG done at 21:12 hours is as follows: Normal sinus rhythm rate of 71, normal MT interval, QRS duration QTC interval, no ST segment elevation, no ST segment depression, no T-wave abnormalities, Q-wave in 3 and AVF, PAC, no PVCs Radiology Impression Discussion of test interpretation with radiology: I have reviewed the radiologist's reading. Radiologist Impression: XR chest 1V IMPRESSION: No acute cardiopulmonary process. Dictated By:n CT head/brain wo IV con IMPRESSION: No acute intracranial pathology. Mild volume loss with small vessel ischemic change. Dictated By:Abhinav Andrade MD Critical Care Time Critical Care Time Critical Care Time: Yes Total Critical Care Time: 35 Attestation: Critical Care: The patient was critically ill with a high probability of i mminent or life threatening deterioration. I spent greater than 30 minutes of discontinuous time evaluating the patient,delivering critical care at the bedside, discussing and evaluating pertinent data with consultants. Critical care time does not include time spent performing separately billable procedures or teaching. Total time spent performing critical care was 35 minutes. Discharge Plan Discharge Clinical Impression: Weakness, Fever, Near syncope, Fall, Closed head injury, Urinary tract infection, Acute hyperglycemia, Non-ST elevation MA (NSTEMI) Prescriptions: No Action (DME) FreeStyle Lite Strips Strip See Rx Instructions .ROUTE .MEDSUPPLY Qty: 10 Rx Instructions: As directed pen needle, diabetic [Pentips] 32 gauge x 5/32 needle 1 ea miscellaneous QID Qty: 100 2RF rosuvastatin 40 mg tablet 40 mg PO BEDTIME Qty: 90 1RF (DME) lancets [TRUEplus Lancets] 33 gauge misc See Rx Instructions .ROUTE .MEDSUPPLY Qty: 350 3RF Rx Instructions: 4 times a day FreeStyle Lite Strips Strip 1 strip miscellaneous QID Qty: 400 3RF levothyroxine 175 mcg tablet 175 mcg PO QAM Qty: 90 1RF Trulicity 3 mg/0.5 mL pen injector 3 mg subcut QWEEK 28 Days Qty: 2 4RF Humalog KwikPen Insulin 200 unit/mL (3 mL) insulin pen See Rx Instructions subcut TID Qty: 12 2RF Rx Instructions: 12-18 units with meals, 6 units hs snack subcut 3 times a day; FUTURE REFILLS FROM PCP. pen needle, diabetic [Pentips] 32 gauge x / needle 1 ea miscellaneous .five times a day Qty: 150 3RF Toujeo Max U-300 SoloStar 300 unit/mL (3 mL) insulin pen 48 unit subcut DAILY Qty: 6 1RF ezetimibe 10 mg tablet 10 mg PO DAILY Qty: 90 3RF ketotifen fumarate 0.025 % (0.035 %) drops 1 drp ophthalmic (eye) BID aspirin 81 mg tablet,delayed release (DR/EC) 81 mg PO DAILY@1200 amlodipine 10 mg tablet 10 mg PO DAILY@1200 diphenhydramine HCl [Banophen] 25 mg capsule 25 mg PO Q4-6H PRN (Reason: itch) hydroxyzine HCl 10 mg tablet 10 mg PO DAILY PRN (Reason: anxiety) loratadine 10 mg tablet 10 mg PO DAILY PRN (Reason: Allergic Symptoms) escitalopram oxalate 10 mg tablet 10 mg PO DAILY@1200 cholecalciferol (vitamin D3) 25 mcg (1,000 unit) tablet 25 mcg PO DAILY@1200 Cerovite Senior Tablet 1 tab PO DAILY isosorbide mononitrate 30 mg Tablet Extended Release 24 Hr 30 mg PO DAILY Qty: 30 0RF Protocol: Hold for SBP< HOLD for SBP < : 90 spironolactone 25 mg Tablet 25 mg PO DAILY Qty: 30 0RF Protocol: Hold for SBP< HOLD for SBP < : 90 furosemide 40 mg tablet 40 mg PO BID Qty: 60 0RF metoprolol succinate 100 mg Tablet Extended Release 24 Hr 100 mg PO BEDTIME Qty: 30 0RF Protocol: Hold for SBP/HR < HOLD for SBP < : 90 HOLD for HR < : 60 cephalexin 500 mg capsule 500 mg PO QID 7 Days Qty: 28 0RF ibuprofen 600 mg tablet 600 mg PO Q8H PRN (Reason: fever or pain) Qty: 14 0RF alcohol swabs Pads, Medicated topical DAILY polyethylene glycol 3350 [Miralax] 17 gram/dose powder 238 g PO ONCE Qty: 238 0RF Rx Instructions: As directed by gastroenterology department at [facility] furosemide 20 mg tablet 20 mg PO DAILY PRN melatonin 5 mg tablet 10 mg PO BEDTIME Cerovite Senior 0.4 mg-300 mcg- 250 mcg tablet 1 tab PO DAILY (DME) FreeStyle Phil 2 [place] Misc See Rx Instructions .ROUTE .MEDSUPPLY Qty: 1 0RF Rx Instructions: As directed (DME) FreeStyle Phil 2 Sensor Kit See Rx Instructions .ROUTE .MEDSUPPLY Qty: 2 11RF Rx Instructions: As directed every 2 weeks
[2023-05-20 23:34] VITALS: BP 114/52; PULSE 70; RESP 20; TEMP 38.2; O2SAT 93
[2023-05-20 23:41] LABS: Troponin-I High Sensitivity 39.8 ng/L (<3.5-17.0)
[2023-05-20 23:56] LABS: COVID-19 Test Negative (Negative); IDNOW Serial# 08D9AD1C
[2023-05-20 23:58] LABS: IDNOW Serial# 55D5AD1C; Influenza A Negative (Negative); Influenza B2 Negative (Negative)
[2023-05-21] VITALS (8 sets, daily range): BP systolic 118–151; BP diastolic 49–76; PULSE 64–83; RESP 14–22; TEMP 36.3–38.2; O2SAT 92–97; BMI 49.8
--- NOTE | 2023-05-21 | ECG_ITS ---
Test Reason : ELEVATED TROP Blood Pressure : / mmHG Vent. Rate : 066 BPM Atrial Rate : 066 BPM P-R Int : 168 ms QRS Dur : 086 ms QT Int : 452 ms P-R-T Axes : 026 -05 007 degrees QTc Int : 473 ms Sinus rhythm with occasional Premature ventricular complexes and Premature atrial complexes Otherwise normal ECG When compared with ECG of 20-MAY-2023 21:12, Premature ventricular complexes are now Present Referred By: Luis Schulz Electronically Signed By:ANIL CORRAL
[2023-05-21] MEDS: Insulin Regular, Human 100 UNIT/ML 3 ML VIAL 12 UNIT IVPUSH (00:24)
[2023-05-21] MEDS: Ibuprofen 400 MG TABLET PO (00:25)
[2023-05-21] MEDS: 0.9 % Sodium Chloride 1,000 ML 999 ML IV ×2 (00:27→04:24)
[2023-05-21 01:03] LABS: Appearance Urine Turbid; Color Urine Dark Yellow; Glucose Urine UA 250 mg/dL (Negative); Leukocyte Esterase Urine Moderate (2+) (Negative); Nitrite Urine Negative (Negative); PH 5.5 (5.0-9.0); UMIC TRIGGER UACC YES; Urine Blood Large (3+) (Negative); Urine Ketones Trace mg/dL (Negative); Urine Protein 300 (3+) mg/dL (Neg-Trace)
[2023-05-21 01:12] LABS: Bacteria Urine 4+ (None Seen); Granular Casts Urine Present; Hyaline Casts Urine >20 /LPF (0-2); RBC Urine >20 /HPF (0-2); UACC Culture Trigger YES; WBC Urine >50 /HPF (0-5)
[2023-05-21 01:59] LABS: Glucose, Whole Blood 309 mg/dL (60-115)
--- NOTE | 2023-05-21 03:45 | P.HPHOSP_ITS ---
History of Present Illness Date of Service: 05/21/23 Chief Complaint: Dizziness This is a 62-year-old female with pertinent history of insulin-dependent diabetes mellitus, essential hypertension, mixed hyperlipidemia, hypothyroidism, mood disorder, congestive heart failure with preserved ejection fraction, chronic kidney disease who presents to the emergency department for evaluation of dizziness and generalized weakness. Patient states she was feeling unwell on the day of presentation. Patient got up to use the restroom, got dizzy and fell. No loss of consciousness. No rhythmic jerking movement of extremities. She states she has not been eating well. Admits fevers and chills. Patient also states she has generalized weakness. Patient does have urgency but denies dysuria or hesitancy. Denies chest discomfort, palpitations, shortness of breath, abdominal pain, changes in urinary habits. The emergency department, glucose and creatinine found to be elevated. Urine concerning for UTI. Troponin was found to be elevated and Cardiology was consulted who recommended heparin drip. Review of Systems Constitutional: Constitutional: Reports fatigue, Reports fever(s), Reports lethargy and Reports malaise Cardiovascular: Cardiovascular: Reports no additional cardiovascular complaints Respiratory: Respiratory: Reports no additional respiratory complaints Gastrointestinal: Gastrointestinal: Reports no additional gastrointestinal c omplaints Genitourinary: Genitourinary: Reports urinary urgency Endocrine: Endocrine: Reports fatigue [facility] Medical History (HFpEF) heart failure with preserved ejection fraction Abnormal dexamethasone suppression test Acute on chronic heart failure with preserved ejection fraction (HFpEF) Acute on chronic kidney failure Anasarca Aortic stenosis Autoimmune thyroiditis BMI 45.0-49.9, adult CHF (congestive heart failure) CKD (chronic kidney disease) Congestive heart failure COVID-19 vaccine series completed Diabetes mellitus with hyperglycemia Diabetes type 2, uncontrolled Dyslipidemia, goal LDL below 100 Essential hypertension Hypokalemia Hypomagnesemia Kidney disease Morbid obesity due to excess calories Other specified hypothyroidism Syncope 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 Family History Family/Other Diabetes Mother History of high blood pressure Father History of high blood pressure Maternal Grandmother History of high blood pressure Surgical History History of History of removal of calculus of renal pelvis through percutaneous nephrostomy Social History Household Members: Spouse Housing: Apartment Are you a primary neonatal intensive care nurse to a significant other at home: No Do you presently have visiting nurse or other home services: No Alcohol intake: current Alcohol intake frequency: a few times a week Alcohol type: wine Patient Tobacco Use Status: Never used Tobacco Smoked in Last 30 Days: No Use of substances other than those prescribed or required for medical reasons: No Advance Directives: No Advance Directives Information Provided: No Patient : No service: No Current occupational status: disabled Meds Allergies Allergy/AdvReac Type Severity Reaction Status Date / Time lisinopril [LISINOPRIL] AdvReac Unknown ITCHY EYES Verified 05/20/23 20:30 Active Medications: Current Medications Ceftriaxone Sodium 1 gm/ (Sodium Chloride) 50 mls @ 100 mls/hr IV ONCE ONE Stop: 05/21/23 03:49 Sodium Chloride (Ns) 1,000 mls @ 999 mls/hr IV .Q1H1M STA Stop: 05/21/23 04:23 Home Medications Medication Instructions Recorded Confirmed Last Taken Type amlodipine 10 mg tablet 10 mg PO DAILY@1200 08/06/20 01/28/23 08/05/20 History aspirin 81 mg tablet,delayed 81 mg PO DAILY@1200 08/06/20 01/28/23 08/05/20 History release cholecalciferol (vitamin D3) 25 25 mcg PO DAILY@1200 08/06/20 01/28/23 08/05/20 History mcg (1,000 unit) tablet diphenhydramine HCl 25 mg capsule 25 mg PO Q4-6H PRN itch 08/06/20 01/28/23 08/05/20 History (Banophen) escitalopram oxalate 10 mg tablet 10 mg PO DAILY@1200 08/06/20 01/28/23 08/05/20 History hydroxyzine HCl 10 mg tablet 10 mg PO DAILY PRN anxiety 08/06/20 01/28/23 08/05/20 History ketotifen fumarate 0.025 % (0.035 1 drp ophthalmic (eye) BID 08/06/20 01/28/23 08/05/20 History %) eye drops loratadine 10 mg tablet 10 mg PO DAILY PRN Allergic 08/06/20 01/28/23 08/05/20 History Symptoms ochlcngjoykj-zndafled-cjzmha 1 tab PO DAILY 08/06/20 01/28/23 08/05/20 History tablet (Cerovite [facility]) blood sugar diagnostic (FreeStyle #10 ea 10/01/20 01/28/23 Unknown History Lite Strips) alcohol swabs pad topical DAILY 10/18/20 01/28/23 Unknown History melatonin 5 mg tablet 10 mg PO BEDTIME 10/22/21 01/28/23 Unknown History pqzbsjcc-poe-mxplj acid 0.4 1 tab PO DAILY 01/29/22 01/28/23 Unknown History mg-lycopene 300 mcg-lutein 250 mcg tablet (Cerovite [facility]) furosemide 20 mg tablet 20 mg PO DAILY PRN 05/21/22 01/28/23 Unknown History Physical Exam Vital Signs and Narrative: Vital Signs: Last Vital Signs Temp 99.3 F 05/21/23 02:32 Pulse 64 05/21/23 02:32 Resp 22 H 05/21/23 02:32 BP 128/49 L 05/21/23 02:32 Pulse Ox 93 05/21/23 02:32 O2 Del Method Room Air 05/21/23 02:32 BMI result Body Mass Index 49.8 Middle-aged female lying in bed in no distress Neck supple, no JVD Regular rate and rhythm, S1-S2 heard Regular breath sounds bilaterally, no wheezing or crackles appreciated Abdomen soft nontender, no guarding, no rigidity Patient is awake, alert and oriented to self, place, time and person ; no focal motor deficit Psych: Normal mood No pedal edema Results Labs 05/20/23 21:43 05/20/23 21:43 Labs: Laboratory Results - last 24 hr 05/20/23 05/20/23 05/20/23 20:32 21:43 21:43 MCV 85.3 MCH 28.4 MCHC 33.3 RDW 13.6 Plt Count 221 MPV 11.2 Immature Gran % (Auto) 0.4 Neut % (Auto) 83.0 H Lymph % (Auto) 7.9 L Prentiss % (Auto) 8.0 Eos % (Auto) 0.2 Baso % (Auto) 0.5 Lymph # (Auto) 1.0 L Prentiss # (Auto) 1.1 Eos # (Auto) 0.0 Baso # (Auto) 0.1 Abs Immat Gran (auto) 0.05 H Absolute Neuts (auto) 10.9 H Absolute Nucleated RBC 0.000 Nucleated RBC % (auto) 0.0 Anion Gap 19 Estim Creat Clear Calc 32.2 Estimated GFR 22 POC Glucose 378 H* Random Glucose 473 H* Lactic Acid Calcium 9.2 Total Bilirubin 0.6 Direct Bilirubin 0.3 AST 17 ALT 19 Alkaline Phosphatase 73 Total Protein 7.9 Albumin 3.6 Urine Color Urine Appearance Urine pH Ur Specific Lynn Urine Protein Urine Glucose (UA) Urine Ketones Urine Blood Urine Nitrite Ur Leukocyte Esterase Urine RBC Urine WBC Ur Squamous Epith Cells Urine Bacteria Hyaline Casts Granular Casts COVID-19 (NELLY) COVID-19 Clin Com Influenza Type A (MAAME) Influenza Type B (MAAME) Influenza A & B Note 05/20/23 05/20/23 05/20/23 21:43 23:31 23:31 MCV MCH MCHC RDW Plt Count MPV Immature Gran % (Auto) Neut % (Auto) Lymph % (Auto) Prentiss % (Auto) Eos % (Auto) Baso % (Auto) Lymph # (Auto) Prentiss # (Auto) Eos # (Auto) Baso # (Auto) Abs Immat Gran (auto) Absolute Neuts (auto) Absolute Nucleated RBC Nucleated RBC % (auto) Anion Gap Estim Creat Clear Calc Estimated GFR POC Glucose Random Glucose Lactic Acid 1.8 Calcium Total Bilirubin Direct Bilirubin AST ALT Alkaline Phosphatase Total Protein Albumin Urine Color Urine Appearance Urine pH Ur Specific Lynn Urine Protein Urine Glucose (UA) Urine Ketones Urine Blood Urine Nitrite Ur Leukocyte Esterase Urine RBC Urine WBC Ur Squamous Epith Cells Urine Bacteria Hyaline Casts Granular Casts COVID-19 (NELLY) Negative COVID-19 Clin Com See Note Influenza Type A (MAAME) Negative Influenza Type B (MAAME) Negative Influenza A & B Note See Note 05/21/23 05/21/23 00:56 01:55 MCV MCH MCHC RDW Plt Count MPV Immature Gran % (Auto) Neut % (Auto) Lymph % (Auto) P[place]iss % (Auto) Eos % (Auto) Baso % (Auto) Lymph # (Auto) Prentiss # (Auto) Eos # (Auto) Baso # (Auto) Abs Immat Gran (auto) Absolute Neuts (auto) Absolute Nucleated RBC Nucleated RBC % (auto) Anion Gap Estim Creat Clear Calc Estimated GFR POC Glucose 309 H Random Glucose Lactic Acid Calcium Total Bilirubin Direct Bilirubin AST ALT Alkaline Phosphatase Total Protein Albumin Urine Color Dark Yellow Urine Appearance Turbid Urine pH 5.5 Ur Specific Lynn 1.020 Urine Protein 300 (3+) H Urine Glucose (UA) 250 H Urine Ketones Trace Urine Blood Large (3+) H Urine Nitrite Negative Ur Leukocyte Esterase Moderate (2+) H Urine RBC >20 H Urine WBC >50 H Ur Squamous Epith Cells 11-20 Urine Bacteria 4+ Hyaline Casts >20 Granular Casts Present COVID-19 (NELLY) COVID-19 Clin Com Influenza Type A (MAAME) Influenza Type B (MAAME) Influenza A & B Note Imaging Radiologist's Impressions: Impressions Chest X-Ray 05/20/23 22:48 IMPRESSION: No acute cardiopulmonary process. Head CT 05/21/23 00:30 IMPRESSION: No acute intracranial pathology. Mild volume loss with small vessel ischemic change. Assessment and Plan (1) Near syncope: Status: Acute (2) Urinary tract infection: Status: Acute (3) Acute hyperglycemia: Status: Acute (4) Non-ST elevation ND (NSTEMI): Status: Acute Plan This is a 62-year-old female with pertinent history of insulin-dependent diabetes mellitus, essential hypertension, mixed hyperlipidemia, hypothyroidism, mood disorder, congestive heart failure with preserved ejection fraction, chronic kidney disease who presents to the emergency department for evaluation of dizziness and generalized weakness. #. Sepsis due to acute UTI: Resuscitated with IV crystalloids. Initiating empiric IV antibiotics. Lactic acid and blood cultures obtained. Follow urine culture #. Presyncope in the setting of above #. NSTEMI: Cardiology was consulted from the ER and patient was placed on heparin drip. Obtaining echo. Aspirin given #. Acute kidney injury on CKD, likely prerenal versus ATN in the setting of sepsis. Monitor creatinine and urine output with fluid resuscitation. Avoid nephrotoxins and hold spironolactone, Lasix #. Uncontrolled insulin-dependent diabetes mellitus with hyperglycemia. Initiating basal plus insulin regimen #. Essential hypertension. Hold home antihypertensives in the setting of sepsis. Resume as appropriate #. Congestive heart failure with preserved ejection fraction. Hold Lasix in the setting of ISAÍAS and sepsis. Resume as appropriate #. Mood disorder. Continue home mood stabilizers #. Hypothyroidism. On Synthroid Med rec pending Full code Lovenox Admit as inpatient and will require two night minimum hospital stay for IV antibiotics and IV heparin Time Spent With Patient Time: Total time managing care of this patient today ____ minutes. Quality Stroke Does the patient have a stroke diagnosis?: No VTE Prior VTE?: No VTE Risk Level:: Medical - moderate - high VTE Device Contraindication: Treatment Not Indicated VTE Drug Contraindication: N/A - Med Ordered
[2023-05-21 03:55] LABS: Venous Blood Gas Refer to POC result
[2023-05-21 03:56] LABS: VBG Base Excess 0.6 mmol/L; VBG HCO3 24 mmol/L (22-26); VBG pCO2 35 mmHg; VBG pH 7.44 (7.32-7.43); VBG pO2 63 mmHg
[2023-05-21 04:22] LABS: Troponin-I High Sensitivity 95.6 ng/L (<3.5-17.0)
[2023-05-21] MEDS: Insulin Glargine,Hum.rec.anlog 100 UNIT/ML 10 ML VIAL 25 UNIT SUBCUT (04:23)
[2023-05-21] MEDS: cefTRIAXone sodium 1 GM in 0.9 % Sodium Chloride 50 ML IV ×2 (04:23→22:43)
[2023-05-21 04:31] LABS: Glucose, Whole Blood 305 mg/dL (60-115)
[2023-05-21 06:12] LABS: Glucose, Whole Blood 327 mg/dL (60-115)
--- NOTE | 2023-05-21 06:15 | MHC.EDTECH ---
Patient requested to be boosted in bed after t/w obtained labs, vitals and POC. T/w and another tech rolled Pt to put new underpads on bed and patient was repositioned. Purewick replaced. Call adkins within reach.
[2023-05-21 06:29] LABS: INTERNATIONAL NORM RATIO 1.1 (0.9-1.1); Prothrombin Time 13.7 SEC (11.1-13.3)
[2023-05-21 06:32] LABS: D Dimer High Sensitivity 321 NG/ML; PTT Heparin Drip 27.7 SEC (53-77.9)
[2023-05-21] MEDS: Aspirin 81 MG TAB.CHEW 324 MG PO (07:00)
[2023-05-21] MEDS: Heparin Sodium,Porcine 5,000 UNIT/ML VIAL 4000 UNIT IVPUSH (07:00)
--- NOTE | 2023-05-21 07:00 | CA_ITS ---
Transthoracic Echocardiogram Patient (Last, First, Middle): Kati Szymanski, Gender: Female Date of : 1960 Age: 62 Procedure Date: 05/21/2023 Procedure Type: Transthoracic Echocardiogram Location: ER Height: 157.48 cm Weight: 123.38 kg BSA: 2.18 m2 Heart Rate: 77 bpm BP: 125 / 51 mmHg President And Chief Operating Officer: SB Referring MD: Mary Lan MD Symptoms: NSTEMI Study Quality: Adequate w contrast ECG Rhythm: Sinus Conclusions: - 1. Hyperdynamic LV systolic function with grade 2 diastolic dysfunction 2. At least moderate aortic stenosis 3. Severe mitral calcification with mild calcific mitral stenosis 4. Mildly elevated right ventricle systolic pressure 5. No gross pericardial effusion Findings Procedure Information Contrast agent, definity, is being given per protocol without apparent complications. Left Ventricle Normal left ventricular cavity size. There is normal left ventricular wall thickness. The left ventricular systolic function is hyperdynamic. The visually estimated ejection fraction is >70%. Spectral Doppler is indicative of a pseudonormal filling pattern. E/E prime ratio is >15, consistent with elevated filling pressures. Evidence suggests grade II (moderate) diastolic dysfunction. There is mild septal asymmetric hypertrophy. Right Ventricle Normal right ventricular cavity size and systolic function. Atria The left atrium is mildly dilated. Interatrial shunt cannot be excluded. The right atrium is normal in size. Aortic Valve There is moderate calcification of the aortic valve. The peak aortic gradient is 57 mmHg.The mean gradient is 36 mmHg. The aortic valve area is 1.40 cm2. There is no aortic valve regurgitation. Mitral Valve There is mild anterior and severe posterior mitral leaflet thickening. There is severe mitral annular calcification. There is no mitral valve regurgitation. There is mild mitral valve stenosis. Pulmonic Valve The pulmonic valve was not well visualized. Tricuspid Valve Likely normal tricuspid valve structure and function. There is mild tricuspid valve regurgitation. Normal right atrial pressure. Mild pulmonary hypertension is present. Great Vessels All visible segments of the aorta are normal in size. The pulmonary artery was not well visualized. There is no dilatation of the ascending aorta measuring 3.10 cm. Venous The inferior vena cava is normal in size and collapses greater than 50% with inspiration. Pericardium/Pleural There is no evidence of pericardial effusion. Prior Study Comparison Changes noted compared to prior study dated: 05/05/2022. RV systolic pressure is mildly elevated Measurements 2D Linear Measurements IVSd: 1.57 0.6-0.9/0.6-1.0 cm LVIDd: 4.89 3.9-5.3/4.2-5.9 cm LVIDd Index: 2.24 2.4-3.2/2.2-3.1 cm/m2 LVIDs: 3.43 2.0-3.6 cm LVPWd: 0.93 0.7-1.1 cm LA Diam: 4.50 2.7-3.8/3.0-4.0 cm LAIDs Index: 2.06 1.5-2.3 cm/m2 LV Mass: 297.27 67-162/88-224 g LV Mass Index: 136.36 43-95/49-115 g/m2 LVOT Diam: 2.20 3.0+(-)1.3 cm 2D Systolic Function EF 4C: 74.10 >55% EF 2C: 84.50 >55% EF BiP: 80.40 >55% Mitral Valve MV VTI: 0.55 MV Pk Jacinto: 1.92 MV Mn Jacinto: 1.20 MV Pk Grad: 15.00 MV Mn Grad: 6.00 MV Pk E: 1.80 MV PK A: 1.34 MV Decel Time: 252.00 E/A: 1.30 E'Medial: 5.84 E/E' Med: 30.80 PHT: 81.00 MVA PHT: 2.72 MVA Continuity: 2.19 Decel [place]: 6.83 Aortic Valve AoV Pk Jacinto: 3.79 AoV Mn Jacinto: 2.85 AoV VTI: 0.86 AoV Pk Grad: 57.00 Aov Mn Grad: 36.00 VICTOR MANUEL Cont.VTI: 1.40 LVOT LVOT Pk Jacinto: 1.44 LVOT Mn Jacinto: 0.94 LVOT VTI: 0.32 LVOT Pk Grad: 8.00 LVOT Mn Grad: 4.00 LVOT Diam: 2.20 LVOT Area: 3.80 Diastolic Function MV Pk E: 1.80 MV Pk A: 1.34 E/A: 1.30 E'Medial: 5.84 E/E' Med: 30.80 Right Ventricle TAPSE (mm): 30.60 TVS' Jacinto: 16.20 Tricuspid Valve TR Pk Jacinto: 3.11 TR Pk Grad: 39.00 RA Press: 3.00 RVSP: 42.00 Great Vessels Aorta Sinus of Valsalva: 2.50 2.0-3.5 cm Ao Asc: 3.10 2.1-3.4 cm Pulmonary Veins Pulm Vein S/D 1.00 Pulmonary Valve PV Pk Jacinto: 1.10 Peak PV Grad: 5.00 Updated in Other Vendor System with Status of Final Raheem Schulte MD electronically signed on 05/21/2023 11:07:23 AM with status of Final
[2023-05-21] MEDS: Heparin Sodium,Porcine/1/2NS 25,000 UNIT/250 ML IV.SOLN 10 UNIT IVCONT (07:01)
--- NOTE | 2023-05-21 07:15 | PC.NURSE ---
Pt trop elevated, D-dimer ordered, came back elevated, Rao and Jeff Barrera notified Heparin gtt started per protocol, next PTTHD at 1300. Pts POC still remains elevated. aware.
[2023-05-21] MEDS: Insulin Lispro 100 UNIT/ML 3 ML VIAL SUBCUT ×5 (07:57→20:06)
--- NOTE | 2023-05-21 08:17 | MHC.EDTECH ---
Patient transferred into hospital bed with help of t/w and two other ED techs. Patient boosted and repositioned. New purewick placed. Call adkins within reach.
[2023-05-21 08:45] LABS: MANUAL DIFF FLAG NO
[2023-05-21 08:50] LABS: Basophils Absolute Auto 0.1 X10*3/uL (0.0-0.2); Basophils Percent Auto 0.5 % (0-2); Eosinophils Percent Auto 0.2 % (0-4); Hematocrit 36.6 % (37.0-47.0); Imm Gran Abs Auto 0.04 X10*3/uL (0.00-0.03); Imm Gran Pct Auto 0.4 % (0.0-0.4); Lymphocytes Absolute Auto 1.5 X10*3/uL (1.2-4.9); Mean Corpuscular HGB Conc 32.8 g/dl (31.0-35.0); Mean Corpuscular Hemoglobin 28.3 pg (27.0-33.0); Mean Corpuscular Volume 86.3 fL (80.0-98.0); Monocytes Absolute Auto 1.1 X10*3/uL (0.1-1.2); Monocytes Percent Auto 10.7 % (2-11); Neutrophils Absolute Auto 7.7 x10*3/uL (2.0-8.3); Neutrophils Percent Auto 74.2 % (45-73); Platelet Count 225 X10*3/uL (160-400); Red Blood Count 4.24 X10*6/uL (4.20-5.50); Red Cell Distribution Width 13.7 % (11.0-16.0); White Blood Count 10.4 X10*3/uL (4.8-10.8)
[2023-05-21] MEDS: 0.9 % Sodium Chloride Flush 3 ML SYRINGE IVFLUSH ×3 (09:00→20:13)
--- NOTE | 2023-05-21 09:05 | PHA.MEDREC ---
Pharmacy Consult ? Medication Reconciliation Pharmacy has completed the medication reconciliation. Spoke to patient to confirm meds.
[2023-05-21 09:16] LABS: Anion Gap 17 (12-20); Blood Urea Nitrogen 46 mg/dL (9-16); Calcium 9.1 mg/dL (8.4-10.2); Carbon Dioxide 23 mmol/L (22-29); Chloride 99 mmol/L (96-108); Creatinine Clr Calc Pharmacy 33.8; Estimated Glomerular Filt Rate 23; Glucose Random 422 mg/dL (60-115); Potassium 4.3 mmol/L (3.3-5.1); Sodium 135 mmol/L (135-145)
[2023-05-21 09:18] LABS: Troponin-I High Sensitivity 62.8 ng/L (<3.5-17.0)
[2023-05-21] MEDS: Levothyroxine Sodium 175 MCG TABLET PO (11:09)
--- NOTE | 2023-05-21 11:09 | P.CONCA_ITS ---
History of Present Illness History of Present Illness Date of Service: 05/21/23 Requesting physician: Roxie Montes Consult reason: troponin elevation Chief complaint: Dizziness Narrative: I was consulted to see Kati in cardiology consultation today for elevated troponins. Patient known to me with prior history of diabetes, morbid obesity, hypertension, heart failure preserved ejection fraction, chronic kidney disease and moderate to severe aortic stenosis by echocardiogram. Patient was last seen by me in the office in January when she was doing okay. She came to the hospital this time because of dizziness and almost passing out. She says that she was at home and on day of presentation she was going to the restroom and felt dizzy and felt like she was going to pass out and fell down. She had no actual loss of consciousness but says that she came close to it. There were no seizure-like activities. She had no associated chest pain or shortness of breath. She has been having fever and chills at home along with urinary urgency. She came to the hospital and troponin was done for unclear reason was noted initially to be mildly elevated and follow-up troponin was further elevated. EKG did not show any ischemic changes. Echocardiogram was done at bedside which shows hyperdynamic LV systolic function with at least moderate aortic stenosis and mildly elevated red with systolic pressure. She denies any recent complains of orthopnea or PND or exertional chest pain. Review of Systems Constitutional: Constitutional: Reports chills, Reports fever(s), Reports malaise and Reports weakness Eyes: Eyes: Reports no additional eye complaints Cardiovascular: Cardiovascular: Denies chest pain, Denies dyspnea and Denies orthopnea Respiratory: Respiratory: Denies cough and Denies dyspnea Gastrointestinal: Gastrointestinal: Reports no additional gastrointestinal complaints Genitourinary: Genitourinary: Reports urinary urgency Neurologic: Reports weakness PMFSH Past Medical History Medical History (HFpEF) heart failure with preserved ejection fraction Abnormal dexamethasone suppression test Acute on chronic heart failure with preserved ejection fraction (HFpEF) Acute on chronic kidney failure Anasarca Aortic stenosis Autoimmune thyroiditis BMI 45.0-49.9, adult CHF (congestive heart failure) CKD (chronic kidney disease) Congestive heart failure COVID-19 vaccine series completed Diabetes mellitus with hyperglycemia Diabetes type 2, uncontrolled Dyslipidemia, goal LDL below 100 Essential hypertension Hypokalemia Hypomagnesemia Kidney disease Morbid obesity due to excess calories Other specified hypothyroidism Syncope 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 Family History Family History Family/Other Diabetes Mother History of high blood pressure Father History of high blood pressure Maternal Grandmother History of high blood pressure Surgical History Surgical History History of History of removal of calculus of renal pelvis through percutaneous nephrostomy Social History Social History Household Members: Spouse Housing: Apartment Are you a primary care professional to a significant other at home: No Do you presently have visiting nurse or other home services: No Alcohol intake: current Alcohol intake frequency: a few times a week Alcohol type: wine Patient Tobacco Use Status: Never used Tobacco Smoked in Last 30 Days: No Use of substances other than those prescribed or required for medical reasons: No Advance Directives: No Advance Directives Information Provided: No Nutrition Risks: No Nutritional Risk Patient : No service: No Current occupational status: disabled Meds Allergies Allergy/AdvReac Type Severity Reaction Status Date / Time lisinopril [LISINOPRIL] AdvReac Unknown ITCHY EYES Verified 05/20/23 20:30 Active Medications: Current Medications Acetaminophen (Acetaminophen Supp 650 Mg Supp.Rect) 650 mg NM Q6H PRN PRN Reason: Pain, Mild (Pain Scale 1-3) Acetaminophen (Acetaminophen 325 Mg Tablet) 650 mg PO Q6H PRN PRN Reason: Pain, Mild (Pain Scale 1-3) Aspirin (Aspirin Enteric Coated 81 Mg Tablet.Dr) 81 mg PO DAILY [facility] Atorvastatin Calcium (Atorvastatin Calcium 80 Mg Tablet) 80 mg PO BEDTIME [facility] Dextrose (Dextrose 50 % 25 Gm/50 Ml Syringe) 25 gm IVPUSH Q15M PRN; Protocol PRN Reason: per Hypoglycemia Standing Ord. Escitalopram Oxalate (Escitalopram Oxalate 10 Mg Tablet) 10 mg PO DAILY@1200 [facility] Glucose (Glucose Gel 15 Gm Gel..Gram.) 15 gm PO Q15M PRN; Protocol PRN Reason: per Hypoglycemia Standing Ord. Hydroxyzine HCl (Hydroxyzine Hcl 10 Mg Tablet) 10 mg PO DAILY PRN PRN Reason: anxiety Ceftriaxone Sodium 1 gm/ (Sodium Chloride) 50 mls @ 100 mls/hr IV Q24H [facility] Stop: 05/27/23 22:29 Insulin Glargine (Insulin Glargine,Hum.Rec.Anlog 100 Unit/Ml 10 Ml Vial) 36 unit SUBCUT BEDTIME [facility] Insulin Human Lispro (Insulin Lispro 100 Unit/Ml 3 Ml Vial) 0 unit SUBCUT QIDACHS [facility]; Protocol Last Admin: 05/21/23 07:57 Dose: 8 unit Isosorbide Mononitrate (Isosorbide Mononitrate 30 Mg Tab.Er.24h) 30 mg PO DAILY@1200 [facility]; Protocol Levothyroxine Sodium (Levothyroxine Sodium 175 Mcg Tablet) 175 mcg PO DAILY@0600 [facility] Melatonin (Melatonin 3 Mg Tablet) 6 mg PO BEDTIME PRN PRN Reason: Insomnia Metoprolol Succinate (Metoprolol Succinate Er 100 Mg Tab.Er.24h) 100 mg PO BEDTIME [facility]; Protocol Ondansetron HCl (Ondansetron Hcl 4 Mg/2 Ml Vial) 4 mg IVPUSH Q8H PRN PRN Reason: Nausea and Vomiting Pharmacy Consult (Consult Rx Perform Med Rec) 1 each MISCELLANE ONCE PRN PRN Reason: Consult order Sodium Chloride (0.9 % Sodium Chloride Flush 3 Ml Syringe) 3 ml IVFLUSH [facility] Last Admin: 05/21/23 09:00 Dose: 3 ml Home Medications Medication Instructions Recorded Confirmed Last Taken Type amlodipine 10 mg tablet 10 mg PO DAILY@1200 08/06/20 05/21/23 05/20/23 History aspirin 81 mg tablet,delayed 81 mg PO DAILY 08/06/20 05/21/23 05/20/23 History release cholecalciferol (vitamin D3) 25 25 mcg PO DAILY@1200 08/06/20 05/21/23 05/20/23 History mcg (1,000 unit) tablet diphenhydramine HCl 25 mg capsule 25 mg PO Q6H PRN itch or allergies 08/06/20 05/21/23 08/05/20 History (Banophen) escitalopram oxalate 10 mg tablet 10 mg PO DAILY@1200 08/06/20 05/21/23 05/20/23 History hydroxyzine HCl 10 mg tablet 10 mg PO DAILY PRN anxiety 08/06/20 05/21/23 08/05/20 History ketotifen fumarate 0.025 % (0.035 1 drp ophthalmic (eye) BID PRN 08/06/20 05/21/23 08/05/20 History %) eye drops Allergy Symptoms loratadine 10 mg tablet 10 mg PO DAILY PRN Allergic 08/06/20 05/21/23 08/05/20 History Symptoms blood sugar diagnostic (FreeStyle #10 ea 10/01/20 05/21/23 05/20/23 History Lite Strips) melatonin 5 mg tablet 10 mg PO BEDTIME PRN Sleep 10/22/21 05/21/23 Unknown History dulaglutide 3 mg/0.5 mL 3 mg subcut CARDENAS@0900 05/21/23 05/21/23 05/10/23 History subcutaneous pen injector (Trulicity) ezetimibe 10 mg tablet 10 mg PO DAILY@1200 05/21/23 05/21/23 05/20/23 History furosemide 40 mg tablet 40 mg PO BID@0900,1200 05/21/23 05/21/23 05/20/23 History ibuprofen 200 mg tablet 400 mg PO Q8H PRN Pain 05/21/23 05/21/23 Unknown History insulin glargine U-300 conc 300 45 unit subcut BEDTIME 05/21/23 05/21/23 05/19/23 History unit/mL (3 mL) subcutaneous pen (Toujeo Max U-300 SoloStar) insulin lispro 200 unit/mL (3 mL) 1 sliding scale dose subcut TIDAC 05/21/23 05/21/23 05/20/23 History subcutaneous pen (Humalog KwikPen U-200 Insulin) isosorbide mononitrate 30 mg 30 mg PO DAILY@119905/21/23 05/21/23 05/20/23 History tablet,extended release 24 hr levothyroxine 175 mcg tablet 175 mcg PO DAILY@0600 05/21/23 05/21/23 05/20/23 History pxfbvegx-qsa-plbnq acid 0.4 1 tab PO DAILY@1200 05/21/23 05/21/23 05/20/23 History mg-lycopene 300 mcg-lutein 250 mcg tablet (Cerovite Senior) Physical Exam Vital Signs: Vital Signs: Last Vital Signs Temp 98.5 F 05/21/23 06:05 Pulse 70 05/21/23 06:05 Resp 14 05/21/23 06:05 BP 125/51 L 05/21/23 06:05 Pulse Ox 93 05/21/23 06:05 O2 Del Method Room Air 05/21/23 06:05 BMI result Body Mass Index 49.8 Const: General: cooperative, comfortable, no acute distress, alert and awake Nutritional Appearance: obese morbidly obese Orientation/consciousness: patient oriented x3 HEENT: Head: Yes normocephalic and Yes atraumatic Neck: Neck: Yes trachea midline, Yes supple and Yes no JVD Resp: Effort & Inspection: decreased respiratory effort Cardio: Jugular venous distension: no JVD Rate: regular rate Rhythm: regular rhythm Heart sounds: S1 normal heart sound present, S2 normal heart sound present, no click, no gallops and Murmur heart sound present systolic late GI: Inspection: Yes obesity Auscultation: normal bowel sounds Skin: General skin exam: no rashes or lesions noted Neuro: General: patient oriented x3 and no focal motor deficits Objective Labs and Meds 05/21/23 08:20 05/21/23 08:20 Lab results: Laboratory Results - last 24 hr 05/20/23 05/20/23 05/20/23 20:32 21:43 21:43 WBC 13.1 H RBC 4.43 Hgb 12.6 Hct 37.8 MCV 85.3 MCH 28.4 MCHC 33.3 RDW 13.6 Plt Count 221 MPV 11.2 Immature Gran % (Auto) 0.4 Neut % (Auto) 83.0 H Lymph % (Auto) 7.9 L [place] % (Auto) 8.0 Eos % (Auto) 0.2 Baso % (Auto) 0.5 Lymph # (Auto) 1.0 L [place] # (Auto) 1.1 Eos # (Auto) 0.0 Baso # (Auto) 0.1 Abs Immat Gran (auto) 0.05 H Absolute Neuts (auto) 10.9 H Absolute Nucleated RBC 0.000 Nucleated RBC % (auto) 0.0 PT INR aPTT Heparin Protocol D-Dimer High Sensitivty VBG pH VBG pCO2 VBG pO2 VBG HCO3 VBG O2 Saturation VBG Base Excess Sodium 133 L Potassium 4.4 Chloride 97 Carbon Dioxide 21 L Anion Gap 19 BUN 46 H Creatinine 2.27 H Estim Creat Clear Calc 32.2 Estimated GFR 22 POC Glucose 378 H* Random Glucose 473 H* Lactic Acid Calcium 9.2 Total Bilirubin 0.6 Direct Bilirubin 0.3 AST 17 ALT 19 Alkaline Phosphatase 73 Troponin I High Sens Total Protein 7.9 Albumin 3.6 Urine Color Urine Appearance Urine pH Ur Specific [place] Urine Protein Urine Glucose (UA) Urine Ketones Urine Blood Urine Nitrite Ur Leukocyte Esterase Urine RBC Urine WBC Ur Squamous Epith Cells Urine Bacteria Hyaline Casts Granular Casts COVID-19 (NELLY) COVID-19 Clin Com Influenza Type A (MAAME) Influenza Type B (MAAME) Influenza A & B Note 05/20/23 05/20/23 05/20/23 21:43 21:43 23:31 WBC RBC Hgb Hct MCV MCH MCHC RDW Plt Count MPV Immature Gran % (Auto) Neut % (Auto) Lymph % (Auto) [place] % (Auto) Eos % (Auto) Baso % (Auto) Lymph # (Auto) [place] # (Auto) Eos # (Auto) Baso # (Auto) Abs Immat Gran (auto) Absolute Neuts (auto) Absolute Nucleated RBC Nucleated RBC % (auto) PT INR aPTT Heparin Protocol D-Dimer High Sensitivty VBG pH VBG pCO2 VBG pO2 VBG HCO3 VBG O2 Saturation VBG Base Excess Sodium Potassium Chloride Carbon Dioxide Anion Gap BUN Creatinine Estim Creat Clear Calc Estimated GFR POC Glucose Random Glucose Lactic Acid 1.8 Calcium Total Bilirubin Direct Bilirubin AST ALT Alkaline Phosphatase Troponin I High Sens 39.8 H Total Protein Albumin Urine Color Urine Appearance Urine pH Ur Specific [place] Urine Protein Urine Glucose (UA) Urine Ketones Urine Blood Urine Nitrite Ur Leukocyte Esterase Urine RBC Urine WBC Ur Squamous Epith Cells Urine Bacteria Hyaline Casts Granular Casts COVID-19 (NELLY) COVID-19 Clin Com Influenza Type A (MAAME) Negative Influenza Type B (MAAME) Negative Influenza A & B Note See Note 05/20/23 05/21/23 05/21/23 23:31 00:56 01:55 WBC RBC Hgb Hct MCV MCH MCHC RDW Plt Count MPV Immature Gran % (Auto) Neut % (Auto) Lymph % (Auto) [place] % (Auto) Eos % (Auto) Baso % (Auto) Lymph # (Auto) [place] # (Auto) Eos # (Auto) Baso # (Auto) Abs Immat Gran (auto) Absolute Neuts (auto) Absolute Nucleated RBC Nucleated RBC % (auto) PT INR aPTT Heparin Protocol D-Dimer High Sensitivty VBG pH VBG pCO2 VBG pO2 VBG HCO3 VBG O2 Saturation VBG Base Excess Sodium Potassium Chloride Carbon Dioxide Anion Gap BUN Creatinine Estim Creat Clear Calc Estimated GFR POC Glucose 309 H Random Glucose Lactic Acid Calcium Total Bilirubin Direct Bilirubin AST ALT Alkaline Phosphatase Troponin I High Sens Total Protein Albumin Urine Color Dark Yellow Urine Appearance Turbid Urine pH 5.5 Ur Specific [place] 1.020 Urine Protein 300 (3+) H Urine Glucose (UA) 250 H Urine Ketones Trace Urine Blood Large (3+) H Urine Nitrite Negative Ur Leukocyte Esterase Moderate (2+) H Urine RBC >20 H Urine WBC >50 H Ur Squamous Epith Cells 11-20 Urine Bacteria 4+ Hyaline Casts >20 Granular Casts Present COVID-19 (NELLY) Negative COVID-19 Clin Com See Note Influenza Type A (MAAME) Influenza Type B (MAAME) Influenza A & B Note 05/21/23 05/21/23 05/21/23 03:44 03:47 04:21 WBC RBC Hgb Hct MCV MCH MCHC RDW Plt Count MPV Immature Gran % (Auto) Neut % (Auto) Lymph % (Auto) [place] % (Auto) Eos % (Auto) Baso % (Auto) Lymph # (Auto) [place] # (Auto) Eos # (Auto) Baso # (Auto) Abs Immat Gran (auto) Absolute Neuts (auto) Absolute Nucleated RBC Nucleated RBC % (auto) PT INR aPTT Heparin Protocol D-Dimer High Sensitivty VBG pH 7.44 H VBG pCO2 35 VBG pO2 63 VBG HCO3 24 VBG O2 Saturation 89.0 VBG Base Excess 0.6 Sodium Potassium Chloride Carbon Dioxide Anion Gap BUN Creatinine Estim Creat Clear Calc Estimated GFR POC Glucose 305 H Random Glucose Lactic Acid Calcium Total Bilirubin Direct Bilirubin AST ALT Alkaline Phosphatase Troponin I High Sens 95.6 H* D Total Protein Albumin Urine Color Urine Appearance Urine pH Ur Specific [place] Urine Protein Urine Glucose (UA) Urine Ketones Urine Blood Urine Nitrite Ur Leukocyte Esterase Urine RBC Urine WBC Ur Squamous Epith Cells Urine Bacteria Hyaline Casts Granular Casts COVID-19 (NELLY) COVID-19 Clin Com Influenza Type A (MAAME) Influenza Type B (MAAME) Influenza A & B Note 05/21/23 05/21/23 05/21/23 06:04 06:04 06:07 WBC RBC Hgb Hct MCV MCH MCHC RDW Plt Count MPV Immature Gran % (Auto) Neut % (Auto) Lymph % (Auto) [place] % (Auto) Eos % (Auto) Baso % (Auto) Lymph # (Auto) [place] # (Auto) Eos # (Auto) Baso # (Auto) Abs Immat Gran (auto) Absolute Neuts (auto) Absolute Nucleated RBC Nucleated RBC % (auto) PT 13.7 H INR 1.1 aPTT Heparin Protocol 27.7 L D-Dimer High Sensitivty 321 VBG pH VBG pCO2 VBG pO2 VBG HCO3 VBG O2 Saturation VBG Base Excess Sodium Potassium Chloride Carbon Dioxide Anion Gap BUN Creatinine Estim Creat Clear Calc Estimated GFR POC Glucose 327 H Random Glucose Lactic Acid Calcium Total Bilirubin Direct Bilirubin AST ALT Alkaline Phosphatase Troponin I High Sens Total Protein Albumin Urine Color Urine Appearance Urine pH Ur Specific [place] Urine Protein Urine Glucose (UA) Urine Ketones Urine Blood Urine Nitrite Ur Leukocyte Esterase Urine RBC Urine WBC Ur Squamous Epith Cells Urine Bacteria Hyaline Casts Granular Casts COVID-19 (NELLY) COVID-19 Clin Com Influenza Type A (MAAME) Influenza Type B (MAAME) Influenza A & B Note 05/21/23 05/21/23 05/21/23 08:20 08:20 08:20 WBC 10.4 RBC 4.24 Hgb 12.0 Hct 36.6 L MCV 86.3 MCH 28.3 MCHC 32.8 RDW 13.7 Plt Count 225 MPV 11.0 Immature Gran % (Auto) 0.4 Neut % (Auto) 74.2 H Lymph % (Auto) 14.0 L [place] % (Auto) 10.7 Eos % (Auto) 0.2 Baso % (Auto) 0.5 Lymph # (Auto) 1.5 [place] # (Auto) 1.1 Eos # (Auto) 0.0 Baso # (Auto) 0.1 Abs Immat Gran (auto) 0.04 H Absolute Neuts (auto) 7.7 Absolute Nucleated RBC 0.000 Nucleated RBC % (auto) 0.0 PT INR aPTT Heparin Protocol D-Dimer High Sensitivty VBG pH VBG pCO2 VBG pO2 VBG HCO3 VBG O2 Saturation VBG Base Excess Sodium 135 Potassium 4.3 Chloride 99 Carbon Dioxide 23 Anion Gap 17 BUN 46 H Creatinine 2.16 H Estim Creat Clear Calc 33.8 Estimated GFR 23 POC Glucose Random Glucose 422 H* Lactic Acid Calcium 9.1 Total Bilirubin Direct Bilirubin AST ALT Alkaline Phosphatase Troponin I High Sens 62.8 H* Total Protein Albumin Urine Color Urine Appearance Urine pH Ur Specific [place] Urine Protein Urine Glucose (UA) Urine Ketones Urine Blood Urine Nitrite Ur Leukocyte Esterase Urine RBC Urine WBC Ur Squamous Epith Cells Urine Bacteria Hyaline Casts Granular Casts COVID-19 (NELLY) COVID-19 Clin Com Influenza Type A (MAAME) Influenza Type B (MAAME) Influenza A & B Note EKG shows normal sinus rhythm with isolated PVCs otherwise no acute ST T wave changes Imaging Radiologist's impression: Impressions Chest X-Ray 05/20/23 22:48 IMPRESSION: No acute cardiopulmonary process. Head CT 05/21/23 00:30 IMPRESSION: No acute intracranial pathology. Mild volume loss with small vessel ischemic change. Assessment and Plan (1) Elevated troponin: Status: Acute Elevated troponins in this middle-aged woman with multiple risk factors of most likely secondary to acute medical illness related UTI/sepsis in the setting of underlying at least moderate aortic stenosis with diastolic dysfunction prior history of heart failure. A near syncopal episode most likely due to infection intravascular volume depletion which. This has improved with IV crystalloid infusion. I do not think she requires IV heparin. Unlikely that this repres ents primary acute coronary syndrome and/or pulmonary embolism. Continue supportive care. Continue her usual risk factor modification and aggressive medical therapy. Her Lasix can be held for 1 more day. Will sign of the case and follow-up as outpatient Time Spent With Patient Time: Total time managing care of this patient today ____ minutes. Procedures Date of Service Date of Service: 05/21/23
[2023-05-21] MEDS: Acetaminophen 325 MG TABLET 650 MG PO ×2 (11:12→18:46)
--- NOTE | 2023-05-21 11:29 | PC.NURSE ---
vq scan cancelled by Judicial Reporter, pt w nad, no pain until approx 1100 when she developed a GE, apap given, resting w eyes closed, heparin infusing, alert, speech clear, skin wpd, sr on monitor
[2023-05-21] MEDS: Isosorbide Mononitrate 30 MG TAB.ER.24H PO (13:05)
[2023-05-21] MEDS: Escitalopram Oxalate 10 MG TABLET PO (13:05)
[2023-05-21 13:12] LABS: Glucose, Whole Blood 379 mg/dL (60-115)
--- NOTE | 2023-05-21 13:50 | PM.EVENT ---
Event Note Date of Service: 05/21/23 Event Note: seen and examined this morning follow up for near syncope, elevated trops feeling well at time of eval. no chest pain, no specific complaints seen by cardiology - does not feel patient has primary ACS or PE. VQ scan canceled and recommended to stop heparin drip. feels near syncopal episode is most likely due to infection/intravascular volume depletion. further management as per H&P attending - dr. sorto Time Spent With Patient Time: Total time managing care of this patient today ____ minutes.
[2023-05-21 14:09] LABS: PTT Heparin Drip 34.1 SEC (53-77.9)
--- NOTE | 2023-05-21 14:40 | MHC.EDTECH ---
Rounded on Pt, underpads changed, Pt boosted and repositiond in bed. New purewick placed. Pt clean/dry.
--- NOTE | 2023-05-21 15:16 | PC.NURSE ---
report called by CONSUELO Emery to floor RN
[2023-05-21 15:36] LABS: Glucose, Whole Blood 489 mg/dL (60-115)
--- NOTE | 2023-05-21 15:39 | MHC.CM.PN ---
CM met with Patient at bedside and addressed IMM with her, providing Patient with the original and placing a copy on the chart. Patient lives in an apartment with her /HCP,uses a cane, and she was about to start receiving a [employer] 3X/week. Home with said services is the goal and CM has initiated and will follow for dc planning. PCP is Dr. Fatmata Sky.
[2023-05-21] MEDS: ondansetron HCL 4 MG/2 ML VIAL IVPUSH (16:50)
[2023-05-21 19:45] LABS: Glucose, Whole Blood 440 mg/dL (60-115)
[2023-05-21] MEDS: Metoprolol Succinate ER 100 MG TAB.ER.24H PO (20:06)
[2023-05-21] MEDS: Atorvastatin Calcium 80 MG TABLET PO (20:06)
[2023-05-21] MEDS: Insulin Glargine,Hum.rec.anlog 100 UNIT/ML 10 ML VIAL 36 UNIT SUBCUT (20:07)
[2023-05-22] MEDS: Benzonatate 100 MG CAPSULE 200 MG PO (01:09)
[2023-05-22] MEDS: Acetaminophen 325 MG TABLET 650 MG PO ×3 (02:25→21:49)
[2023-05-22 03:35] VITALS: BP 132/59; PULSE 67; RESP 18; TEMP 36.7; O2SAT 96
[2023-05-22] MEDS: Levothyroxine Sodium 175 MCG TABLET PO (05:44)
[2023-05-22 06:56] LABS: INTERNATIONAL NORM RATIO 1.2 (0.9-1.1)
[2023-05-22 07:09] VITALS: BP 124/70; PULSE 68; RESP 20; TEMP 36.5; O2SAT 97
[2023-05-22 07:43] LABS: Glucose, Whole Blood 278 mg/dL (60-115)
[2023-05-22] MEDS: Aspirin Enteric Coated 81 MG TABLET.DR PO (08:12)
[2023-05-22] MEDS: Insulin Lispro 100 UNIT/ML 3 ML VIAL SUBCUT ×6 (08:12→19:55)
[2023-05-22] MEDS: 0.9 % Sodium Chloride Flush 3 ML SYRINGE IVFLUSH ×3 (08:12→19:56)
[2023-05-22 08:17] LABS: Hematocrit 35.1 % (37.0-47.0); Hemoglobin 11.4 g/dl (12.0-16.0); Mean Corpuscular HGB Conc 32.5 g/dl (31.0-35.0); Mean Corpuscular Hemoglobin 28.2 pg (27.0-33.0); Mean Corpuscular Volume 86.9 fL (80.0-98.0); Mean Platelet Volume 11.4 fL (9.4-12.3); Platelet Count 217 X10*3/uL (160-400); Red Blood Count 4.04 X10*6/uL (4.20-5.50)
--- NOTE | 2023-05-22 10:43 | PM.PNCARD ---
Subjective Subjective Date of Service: 05/22/23 Principal diagnosis: Troponin elevation aortic stenosis. Interval history: Patient has no new cardiac symptoms. Complains of weakness and headache. Denies any chest pain or shortness of breath. Echocardiogram shows at least moderate aortic stenosis with normal LV systolic function. Review of Systems Constitutional: Denies fever(s) and Reports malaise Cardiovascular: Denies no additional cardiovascular complaints Respiratory: Reports no additional respiratory complaints Musculoskeletal: Reports no additional musculoskeletal complaints Reports system reviewed and no additional complaints, except as documented Allergic/Immunologic: Reports no additional allergic/immunologic complaints Physical Exam Vital Signs: Last Vital Signs Temp 97.7 F 05/22/23 07:09 Pulse 68 05/22/23 07:09 Resp 20 05/22/23 07:09 BP 124/70 05/22/23 07:09 Pulse Ox 97 05/22/23 07:09 O2 Del Method Room Air 05/22/23 07:09 BMI result Body Mass Index 49.8 Const General: cooperative, comfortable, no acute distress, alert and awake Nutritional Appearance: obese morbidly obese Neck Neck: Yes trachea midline, Yes supple and Yes no JVD Resp Effort & Inspection: decreased respiratory effort Cardio Jugular venous distension: no JVD Rate: regular rate Rhythm: regular rhythm Heart sounds: S1 normal heart sound present, S2 normal heart sound present, no click, no gallops and Murmur heart sound present systolic late Skin General skin exam: no rashes or lesions noted Objective Labs and Meds 05/22/23 06:15 05/21/23 08:20 Lab results: Laboratory Results - last 24 hr 05/21/23 05/21/23 05/21/23 13:07 13:52 15:31 WBC RBC Hgb Hct MCV MCH MCHC RDW Plt Count MPV Absolute Nucleated RBC Nucleated RBC % (auto) PT INR aPTT Heparin Protocol 34.1 L D POC Glucose 379 H* 489 H* 05/21/23 05/22/23 05/22/23 19:39 06:13 06:15 WBC 10.0 RBC 4.04 L Hgb 11.4 L Hct 35.1 L MCV 86.9 MCH 28.2 MCHC 32.5 RDW 14.0 Plt Count 217 MPV 11.4 Absolute Nucleated RBC 0.000 Nucleated RBC % (auto) 0.0 PT 14.0 H INR 1.2 H aPTT Heparin Protocol POC Glucose 440 H* 08/18/23 07:08 WBC RBC Hgb Hct MCV MCH MCHC RDW Plt Count MPV Absolute Nucleated RBC Nucleated RBC % (auto) PT INR aPTT Heparin Protocol POC Glucose 278 H Progress Note: A&P Assessment and plan (1) Elevated troponin: Status: Acute Assessment and Plan: Elevated troponin secondary to acute medical illness in setting of underlying diastolic dysfunction as well as aortic stenosis. There is likelihood of underlying coronary artery disease. Will follow-up with outpatient myocardial perfusion imaging in few weeks to rule out prognostically significant myocardial ischemia. This was discussed with her. Meanwhile continue low-dose aspirin therapy. Continue high-intensity statin therapy. Continue metoprolol therapy (2) Aortic stenosis: Status: Acute Assessment and Plan: Aortic stenosis which is at least moderate to moderately severe. Continue aggressive risk factor modification. Continue high-intensity statin therapy, low-dose aspirin therapy. Blood pressure is well optimized, continue current therapy. Aggressive diabetes management. Will follow up in the clinic after stress test. Will sign of the case at this point time. Thank you for allowing me to partake in her care Time Spent With Patient Time: Total time managing care of this patient today ____ minutes. Progress Note: Quality Stroke Does the patient have a stroke diagnosis?: No Procedures Date of Service Date of Service: 05/22/23
[2023-05-22 10:46] VITALS: BP 121/57; PULSE 65; RESP 20; TEMP 36.6; O2SAT 97
[2023-05-22 11:13] LABS: Glucose, Whole Blood 443 mg/dL (60-115)
[2023-05-22] MEDS: Isosorbide Mononitrate 30 MG TAB.ER.24H PO (12:14)
[2023-05-22] MEDS: Escitalopram Oxalate 10 MG TABLET PO (12:14)
--- NOTE | 2023-05-22 12:47 | P.PNIM_ITS ---
Subjective Subjective Date of Service: 05/22/23 Interval History: seen and examined this morning follow up for near syncope, UTI feeling better this am, no fever, no abdominal pain Review of Systems Review of Systems: Yes all other systems are reviewed and are negative Constitutional Constitutional: Denies chills and Denies fever(s) ENT Ears, Nose, Mouth, and Throat: Denies dizziness Cardiovascular Cardiovascular: Denies chest pain, Denies palpitations and Denies dyspnea Respiratory Respiratory: Denies cough and Denies dyspnea Gastrointestinal Gastrointestinal: Denies abdominal pain Neurologic Neurologic: Denies dizziness Endocrine Endocrine: Denies palpitations Physical Exam Vital Signs: Vital Signs: Last Vital Signs Temp 97.9 F 05/22/23 10:46 Pulse 65 05/22/23 10:46 Resp 20 05/22/23 10:46 BP 121/57 L 05/22/23 10:46 Pulse Ox 97 05/22/23 10:46 O2 Del Method Room Air 05/22/23 10:46 BMI result Body Mass Index 49.8 Const: General: cooperative, comfortable, no acute distress, alert and awake Nutritional Appearance: obese Orientation/consciousness: patient oriented x3 Resp: Effort & Inspection: normal respiratory effort, able to speak in complete sentences, no respiratory distress and no use of accessory muscles Auscultation: clear to auscultation bilaterally Cardio: Rate: regular rate Heart sounds: S1 normal heart sound present and S2 normal heart sound present GI: Inspection: No distended Palpation (GI): Soft to palpation and nontender Neuro: General: patient oriented x3, moves all extremities and CN's II-XI intact bilaterally Extrem: General: Yes no pedal edema Objective Data Active Medications Acetaminophen (Acetaminophen Supp 650 Mg Supp.Rect) 650 mg [place] Q6H PRN PRN Reason: Pain, Mild (Pain Scale 1-3) Acetaminophen (Acetaminophen 325 Mg Tablet) 650 mg PO Q6H PRN PRN Reason: Pain, Mild (Pain Scale 1-3) Last Admin: 05/22/23 08:25 Dose: 650 mg Documented By: RUPERTO Aspirin (Aspirin Enteric Coated 81 Mg Tablet.) 81 mg PO DAILY [facility] Last Admin: 05/22/23 08:12 Dose: 81 mg Documented By: RUPERTO Atorvastatin Calcium (Atorvastatin Calcium 80 Mg Tablet) 80 mg PO BEDTIME [facility] Last Admin: 05/21/23 20:06 Dose: 80 mg Documented By: KASSIDY Benzonatate (Benzonatate 100 Mg Capsule) 200 mg PO TID PRN PRN Reason: Cough Last Admin: 05/22/23 01:09 Dose: 200 mg Documented By: RICHIE Dextrose (Dextrose 50 % 25 Gm/50 Ml Syringe) 25 gm IVPUSH Q15M PRN; Protocol PRN Reason: per Hypoglycemia Standing Ord. Escitalopram Oxalate (Escitalopram Oxalate 10 Mg Tablet) 10 mg PO DAILY@1200 [facility] Last Admin: 05/22/23 12:14 Dose: 10 mg Documented By: RUPERTO Glucose (Glucose Gel 15 Gm Gel..Gram.) 15 gm PO Q15M PRN; Protocol PRN Reason: per Hypoglycemia Standing Ord. Hydroxyzine HCl (Hydroxyzine Hcl 10 Mg Tablet) 10 mg PO DAILY PRN PRN Reason: anxiety Ceftriaxone Sodium 1 gm/ (Sodium Chloride) 50 mls @ 100 mls/hr IV Q24H [facility] Stop: 05/27/23 22:29 Last Infusion: 05/21/23 23:30 Dose: 0 mls/hr Documented By: KASSIDY Insulin Glargine (Insulin Glargine,Hum.Rec.Anlog 100 Unit/Ml 10 Ml Vial) 36 unit SUBCUT BEDTIME [facility] Last Admin: 05/21/23 20:07 Dose: 36 unit Documented By: KASSIDY Insulin Human Lispro (Insulin Lispro 100 Unit/Ml 3 Ml Vial) 0 unit SUBCUT QIDACHS [facility]; Protocol Last Admin: 05/22/23 12:15 Dose: 10 unit Documented By: RUPERTO Isosorbide Mononitrate (Isosorbide Mononitrate 30 Mg Tab.Er.24h) 30 mg PO DAILY@1200 [facility]; Protocol Last Admin: 05/22/23 12:14 Dose: 30 mg Documented By: RUPERTO Levothyroxine Sodium (Levothyroxine Sodium 175 Mcg Tablet) 175 mcg PO DAILY@0600 [facility] Last Admin: 05/22/23 05:44 Dose: 175 mcg Documented By: KASSIDY Melatonin (Melatonin 3 Mg Tablet) 6 mg PO BEDTIME PRN PRN Reason: Insomnia Metoprolol Succinate (Metoprolol Succinate Er 100 Mg Tab.Er.24h) 100 mg PO BEDTIME [facility]; Protocol Last Admin: 05/21/23 20:06 Dose: 100 mg Documented By: KASSIDY Ondansetron HCl (Ondansetron Hcl 4 Mg/2 Ml Vial) 4 mg IVPUSH Q8H PRN PRN Reason: Nausea and Vomiting Last Admin: 05/21/23 16:50 Dose: 4 mg Documented By: RUPERTO Pharmacy Consult (Consult Rx Perform Med Rec) 1 each MISCELLANE ONCE PRN PRN Reason: Consult order Sodium Chloride (0.9 % Sodium Chloride Flush 3 Ml Syringe) 3 ml IVFLUSH QSHIFT [facility] Last Admin: 05/22/23 08:12 Dose: 3 ml Documented By: RUPERTO Labs 05/22/23 06:15 05/21/23 08:20 Labs: Laboratory Results - last 24 hr 05/21/23 05/21/23 05/21/23 13:07 13:52 15:31 MCV MCH MCHC RDW Plt Count MPV Absolute Nucleated RBC Nucleated RBC % (auto) PT INR aPTT Heparin Protocol 34.1 L D POC Glucose 379 H* 489 H* 05/21/23 05/22/23 05/22/23 19:39 06:13 06:15 MCV 86.9 MCH 28.2 MCHC 32.5 RDW 14.0 Plt Count 217 MPV 11.4 Absolute Nucleated RBC 0.000 Nucleated RBC % (auto) 0.0 PT 14.0 H INR 1.2 H aPTT Heparin Protocol POC Glucose 440 H* 05/22/23 05/22/23 07:08 10:46 MCV MCH MCHC RDW Plt Count MPV Absolute Nucleated RBC Nucleated RBC % (auto) PT INR aPTT Heparin Protocol POC Glucose 278 H 443 H* Microbiology Microbiology Results: Microbiology 05/21/23 Unknown Urine Culture - Preliminary Urine clean catch - Clean Catch Midstream Gram negative kerrie 05/20/23 21:43 Blood Culture - Final Blood - Venous Coag negative Staphylococcus 05/20/23 21:43 Blood Culture - Preliminary Blood - Venous No growth after 24 hours. Assessment and Plan (1) Near syncope: Status: Acute (2) Urinary tract infection: Status: Acute Plan This is a 62-year-old female with pertinent history of insulin-dependent diabe litzy mellitus, essential hypertension, mixed hyperlipidemia, hypothyroidism, mood disorder, congestive heart failure with preserved ejection fraction, chronic kidney disease who presents to the emergency department for evaluation of dizziness and generalized weakness. Sepsis due to acute UTI: Urine culture growing GNR continue IV ceftriaxone,started 05/21 Presyncope in the setting of above elevated troponin related to demand from above. seen by cardiology, heparin drip stopped. echo with diastolic dysfunction and aortic stenosis. Probable underlying coronary artery disease, Cardiology recommends outpatient myocardial perfusion imaging Continue aspirin, statin, metoprolol Aortic stenosis Echo showing moderate to moderately severe aortic stenosis Outpatient Cardiology follow-up Acute kidney injury on CKD (likely stage 3 although no recent baseline) likely prerenal versus ATN in the setting of sepsis. Avoid nephrotoxins and hold spironolactone, Lasix follow renal function insulin-dependent diabetes mellitus with hyperglycemia. continue lantus SSI, POCs Essential hypertension. Hold norvasc in the setting of sepsis, resume as bp allows continue metoprolol Congestive heart failure with preserved ejection fraction. Hold Lasix in the setting of ISAÍAS and sepsis. Resume as appropriate Mood disorder. Continue home mood stabilizers Hypothyroidism. On Synthroid Morbid obesity [place] 49.8 weight loss encouraged Full code Loveromulox attending - dr. sorto Requires ongoing inpatient stay for management of UTI with IV antibiotics, renal failure Time Spent With Patient Time: Total time managing care of this patient today ____ minutes. Quality Stroke Does the patient have a stroke diagnosis?: No VTE Prior VTE?: No VTE Risk Level:: Medical - moderate - high VTE Device Contraindication: Treatment Not Indicated VTE Drug Contraindication: N/A - Med Ordered
--- NOTE | 2023-05-22 13:00 | P.CDIM_ITS ---
PROVIDER RESPONSE TEXT: To clarify, the appropriate diagnosis supported by the clinical indicators: CKD, please provide stage QUERY TEXT: PHYSICIAN'S DOCUMENTATION REQUEST Date of Query: 05/22/2023 09:04 AM EDT Patient Name: Kati Szymanski Admit Date: 05/21/2023 Dear Roxie Montes, A review of the medical record indicates additional documentation may be needed. Please review below and update the documentation accordingly. Clinical Indicators: Per Hospitalist progress note 05/21/23: CKD On 05/21/23: BUN 46 Creatinine 2.16 Est GFR 23 Please clarify which of the following accurately represents the patient's renal status: CKD, please provide stage Other (explain)Clinically unable to determine (explain)Thank you, Nereida Rosenbaum RN Use of terms such as suspected, likely, concern for, or probable (associated with a specific diagnosi s that is being evaluated, monitored, or treated as if it exists) are acceptable and can be coded in the inpatient se tting, when documented at the time of discharge. Please use your independent medical judgment in providing your response. THIS QUERY IS PART OF THE PERMANENT MEDICAL RECORD
--- NOTE | 2023-05-22 13:05 | P.CDIM_ITS ---
PROVIDER RESPONSE TEXT: To clarify, the appropriate diagnosis supported by the clinical indicators: Severe or Morbid Obesity QUERY TEXT: PHYSICIAN'S DOCUMENTATION REQUEST Date of Query: 05/22/2023 09:08 AM EDT Patient Name: Kati Szymanski Admit Date: 05/21/2023 Dear Roxie Montes, A review of the medical record indicates additional documentation may be needed. Please review below and update the documentation accordingly. Clinical Indicators: Height: ( ) 5'2 Weight: ( ) 123.5 kg BMI: ( ) 49.8 If possible, please provide an associated diagnosis related to the abnormal BMI, such as: Overweight Obesity Due to excess calories Obesity Drug induced Obesity Due to other cause Specify the other cause Severe or Morbid Obesity BMI is not significant Other (explain)Clinically unable to determine (explain)Thank you, Nereida Rosenbaum RN Use of terms such as suspected, likely, concern for, or probable (associated with a specific diagnosi s that is being evaluated, monitored, or treated as if it exists) are acceptable and can be coded in the inpatient se tting, when documented at the time of discharge. Please use your independent medical judgment in providing your response. THIS QUERY IS PART OF THE PERMANENT MEDICAL RECORD
[2023-05-22 15:05] VITALS: BP 137/61; PULSE 71; RESP 20; TEMP 37.1; O2SAT 93
[2023-05-22 16:20] LABS: Glucose, Whole Blood 472 mg/dL (60-115)
[2023-05-22 19:03] VITALS: BP 167/75; PULSE 71; RESP 20; TEMP 36.7; O2SAT 92
[2023-05-22 19:50] LABS: Glucose, Whole Blood 363 mg/dL (60-115)
[2023-05-22] MEDS: Atorvastatin Calcium 80 MG TABLET PO (19:55)
[2023-05-22] MEDS: Metoprolol Succinate ER 100 MG TAB.ER.24H PO (19:55)
[2023-05-22] MEDS: Insulin Glargine,Hum.rec.anlog 100 UNIT/ML 10 ML VIAL 36 UNIT SUBCUT (19:56)
[2023-05-22] MEDS: Melatonin 3 MG TABLET 6 MG PO (21:49)
[2023-05-22] MEDS: cefTRIAXone sodium 1 GM in 0.9 % Sodium Chloride 50 ML IV (21:50)
[2023-05-23] VITALS: BP 132/60; PULSE 62; RESP 20; TEMP 36.6; O2SAT 92
[2023-05-23 03:50] VITALS: BP 147/65; PULSE 66; RESP 20; TEMP 36.1; O2SAT 95
[2023-05-23] MEDS: Levothyroxine Sodium 175 MCG TABLET PO (05:13)
[2023-05-23 06:38] LABS: Estimated Average Glucose 275 mg/dL; Hemoglobin A1c % 11.2 %
[2023-05-23 06:42] LABS: Anion Gap 17 (12-20); Blood Urea Nitrogen 35 mg/dL (9-16); Calcium 9.2 mg/dL (8.4-10.2); Carbon Dioxide 24 mmol/L (22-29); Chloride 102 mmol/L (96-108); Estimated Glomerular Filt Rate 30; Glucose Random 259 mg/dL (60-115); Potassium 4.5 mmol/L (3.3-5.1); Sodium 138 mmol/L (135-145)
[2023-05-23 07:51] VITALS: BP 155/64; PULSE 65; RESP 20; TEMP 36.8; O2SAT 96
[2023-05-23] MEDS: Aspirin Enteric Coated 81 MG TABLET.DR PO (07:57)
[2023-05-23] MEDS: Insulin Lispro 100 UNIT/ML 3 ML VIAL SUBCUT ×7 (07:58→20:41)
[2023-05-23] MEDS: 0.9 % Sodium Chloride Flush 3 ML SYRINGE IVFLUSH ×3 (08:52→20:41)
[2023-05-23 11:11] VITALS: BP 139/61; PULSE 58; RESP 20; TEMP 36.7; O2SAT 95
[2023-05-23 11:28] LABS: Glucose, Whole Blood 403 mg/dL (60-115)
--- NOTE | 2023-05-23 11:35 | P.PNIM_ITS ---
Subjective Subjective Date of Service: 05/23/23 Interval History: seen and examined this morning follow up for near syncope, UTI feeling better this am, no fever, no abdominal pain Review of Systems Review of Systems: Yes all other systems are reviewed and are negative Constitutional Constitutional: Denies chills and Denies fever(s) ENT Ears, Nose, Mouth, and Throat: Denies dizziness Cardiovascular Cardiovascular: Denies chest pain, Denies palpitations and Denies dyspnea Respiratory Respiratory: Denies cough and Denies dyspnea Gastrointestinal Gastrointestinal: Denies abdominal pain Neurologic Neurologic: Denies dizziness Endocrine Endocrine: Denies palpitations Physical Exam Vital Signs: Vital Signs: Last Vital Signs Temp 98.0 F 05/23/23 11:11 Pulse 58 05/23/23 11:11 Resp 20 05/23/23 11:11 BP 139/61 05/23/23 11:11 Pulse Ox 95 05/23/23 11:11 O2 Del Method Room Air 05/23/23 11:11 BMI result Body Mass Index 49.8 Appearing in no acute distress lung sounds are clear to auscultation heart regular rate rhythm, clear S1, S2 positive bowel sounds, abdomen is soft, nontender neuro patient is alert x3, no focal deficits Objective Data Active Medications Acetaminophen (Acetaminophen Supp 650 Mg Supp.Rect) 650 mg [place] Q6H PRN PRN Reason: Pain, Mild (Pain Scale 1-3) Acetaminophen (Acetaminophen 325 Mg Tablet) 650 mg PO Q6H PRN PRN Reason: Pain, Mild (Pain Scale 1-3) Last Admin: 05/22/23 21:49 Dose: 650 mg Documented By: MARIXA Aspirin (Aspirin Enteric Coated 81 Mg Tablet.) 81 mg PO DAILY [facility] Last Admin: 05/23/23 07:57 Dose: 81 mg Documented By: SURENDRA Atorvastatin Calcium (Atorvastatin Calcium 80 Mg Tablet) 80 mg PO BEDTIME [facility] Last Admin: 05/22/23 19:55 Dose: 80 mg Documented By: MARIXA Benzonatate (Benzonatate 100 Mg Capsule) 200 mg PO TID PRN PRN Reason: Cough Last Admin: 05/22/23 01:09 Dose: 200 mg Documented By: RICHIE Dextrose (Dextrose 50 % 25 Gm/50 Ml Syringe) 25 gm IVPUSH Q15M PRN; Protocol PRN Reason: per Hypoglycemia Standing Ord. Escitalopram Oxalate (Escitalopram Oxalate 10 Mg Tablet) 10 mg PO DAILY@1200 [facility] Last Admin: 05/22/23 12:14 Dose: 10 mg Documented By: RUPERTO Glucose (Glucose Gel 15 Gm Gel..Gram.) 15 gm PO Q15M PRN; Protocol PRN Reason: per Hypoglycemia Standing Ord. Hydroxyzine HCl (Hydroxyzine Hcl 10 Mg Tablet) 10 mg PO DAILY PRN PRN Reason: anxiety Ceftriaxone Sodium 1 gm/ (Sodium Chloride) 50 mls @ 100 mls/hr IV Q24H [facility] Stop: 05/27/23 22:29 Last Infusion: 05/22/23 23:01 Dose: 0 mls/hr Documented By: MARIXA Insulin Glargine (Insulin Glargine,Hum.Rec.Anlog 100 Unit/Ml 10 Ml Vial) 36 unit SUBCUT BEDTIME [facility] Last Admin: 05/22/23 19:56 Dose: 36 unit Documented By: MARIXA Insulin Human Lispro (Insulin Lispro 100 Unit/Ml 3 Ml Vial) 0 unit SUBCUT QIDACHS [facility]; Protocol Last Admin: 05/23/23 07:58 Dose: 6 unit Documented By: SURENDRA Insulin Human Lispro (Insulin Lispro 100 Unit/Ml 3 Ml Vial) 5 unit SUBCUT TIDAC [facility] Last Admin: 05/23/23 07:58 Dose: 5 unit Documented By: SURENDRA Isosorbide Mononitrate (Isosorbide Mononitrate 30 Mg Tab.Er.24h) 30 mg PO DAILY@1200 [facility]; Protocol Last Admin: 05/22/23 12:14 Dose: 30 mg Documented By: RUPERTO Levothyroxine Sodium (Levothyroxine Sodium 175 Mcg Tablet) 175 mcg PO DAILY@0600 [facility] Last Admin: 05/23/23 05:13 Dose: 175 mcg Documented By: MARIXA Melatonin (Melatonin 3 Mg Tablet) 6 mg PO BEDTIME PRN PRN Reason: Insomnia Last Admin: 05/22/23 21:49 Dose: 6 mg Documented By: MARIXA Metoprolol Succinate (Metoprolol Succinate Er 100 Mg Tab.Er.24h) 100 mg PO BEDTIME [facility]; Protocol Last Admin: 05/22/23 19:55 Dose: 100 mg Documented By: MARIXA Ondansetron HCl (Ondansetron Hcl 4 Mg/2 Ml Vial) 4 mg IVPUSH Q8H PRN PRN Reason: Nausea and Vomiting Last Admin: 05/21/23 16:50 Dose: 4 mg Documented By: RUPERTO Pharmacy Consult (Consult Rx Perform Med Rec) 1 each MISCELLANE ONCE PRN PRN Reason: Consult order Sodium Chloride (0.9 % Sodium Chloride Flush 3 Ml Syringe) 3 ml IVFLUSH QSHIFT [facility] Last Admin: 05/23/23 08:52 Dose: 3 ml Documented By: PHANLYM Labs 05/22/23 06:15 05/23/23 06:00 Labs: Laboratory Results - last 24 hr 05/22/23 05/22/23 05/23/23 16:05 19:44 06:00 Anion Gap 17 Estim Creat Clear Calc 43.0 Estimated GFR 30 POC Glucose 472 H* 363 H* Random Glucose 259 H Estimat Average Glucose Hemoglobin A1c % Calcium 9.2 05/23/23 05/23/23 06:00 11:08 Anion Gap Estim Creat Clear Calc Estimated GFR POC Glucose 403 H* Random Glucose Estimat Average Glucose 275 Hemoglobin A1c % 11.2 Calcium Microbiology Microbiology Results: Microbiology 05/21/23 Unknown Urine Culture - Final Urine clean catch - Clean Catch Midstream Escherichia coli 05/20/23 21:43 Blood Culture - Preliminary Blood - Venous No growth after 48 hours. 05/20/23 21:43 Blood Culture - Final Blood - Venous Coag negative Staphylococcus Assessment and Plan (1) Near syncope: Status: Acute (2) Urinary tract infection: Status: Acute Plan This is a 62-year-old female with pertinent history of insulin-dependent diabetes mellitus, essential hypertension, mixed hyperlipidemia, hypothyroidism, mood disorder, congestive heart failure with preserved ejection fraction, chronic kidney disease who presents to the emergency department for evaluation of dizziness and generalized weakness. Sepsis due to acute ecoli UTI sepsis resolved continue IV ceftriaxone,started 05/21 Presyncope in the setting of above no further episodes elevated troponin related to demand from above. seen by cardiology, heparin drip stopped. echo with diastolic dysfunction and aortic stenosis. Probable underlying coronary artery disease, Cardiology recommends outpatient myocardial perfusion imaging Continue aspirin, statin, metoprolol Aortic stenosis Echo showing moderate to moderately severe aortic stenosis Outpatient Cardiology follow-up Acute kidney injury on CKD 3 creat 1.7, close to baseline likely prerenal versus ATN in the setting of sepsis. follow renal function insulin-dependent diabetes mellitus 2 with hyperglycemia. continue lantus, ss increased due to hyperglycemia Essential hypertension. continue metoprolol and amlodipine Congestive heart failure with preserved ejection fraction. continue home dose of lasix Mood disorder. Continue home mood stabilizers Hypothyroidism. On Synthroid Morbid obesity [place] 49.8 weight loss encouraged Full code Lovenox attending - dr. Mireles Requires ongoing inpatient stay for management of UTI with IV antibiotics, renal failure Time Spent With Patient Time: Total time managing care of this patient today ____ minutes. Quality Stroke Does the patient have a stroke diagnosis?: No VTE Prior VTE?: No VTE Risk Level:: Medical - moderate - high VTE Device Contraindication: Treatment Not Indicated VTE Drug Contraindication: N/A - Med Ordered
[2023-05-23] MEDS: Isosorbide Mononitrate 30 MG TAB.ER.24H PO (11:42)
[2023-05-23] MEDS: Escitalopram Oxalate 10 MG TABLET PO (11:42)
[2023-05-23] MEDS: Furosemide 40 MG TABLET PO (11:46)
[2023-05-23] MEDS: amLODIPine Besylate 10 MG TABLET PO (11:46)
[2023-05-23 16:00] VITALS: BP 135/63; PULSE 67; RESP 18; TEMP 36.6; O2SAT 95
[2023-05-23 16:53] LABS: Glucose, Whole Blood 399 mg/dL (60-115)
[2023-05-23 19:55] VITALS: BP 130/62; PULSE 67; RESP 18; TEMP 37.6; O2SAT 93
[2023-05-23 20:13] LABS: Glucose, Whole Blood 415 mg/dL (60-115)
[2023-05-23] MEDS: Atorvastatin Calcium 80 MG TABLET PO (20:40)
[2023-05-23] MEDS: Melatonin 3 MG TABLET 6 MG PO (20:40)
[2023-05-23] MEDS: Metoprolol Succinate ER 100 MG TAB.ER.24H PO (20:40)
[2023-05-23] MEDS: Acetaminophen 325 MG TABLET 650 MG PO (20:40)
[2023-05-23] MEDS: Insulin Glargine,Hum.rec.anlog 100 UNIT/ML 10 ML VIAL 36 UNIT SUBCUT (20:41)
[2023-05-23] MEDS: cefTRIAXone sodium 1 GM in 0.9 % Sodium Chloride 50 ML IV (22:01)
[2023-05-24] VITALS: BP 128/59; PULSE 55; RESP 20; TEMP 36.1; O2SAT 90
[2023-05-24 03:04] VITALS: BP 130/61; PULSE 56; RESP 20; TEMP 36.2; O2SAT 91
[2023-05-24] MEDS: Levothyroxine Sodium 175 MCG TABLET PO (05:17)
[2023-05-24 07:20] VITALS: BP 144/63; PULSE 60; RESP 20; TEMP 36.4; O2SAT 90
[2023-05-24] MEDS: Aspirin Enteric Coated 81 MG TABLET.DR PO (07:35)
[2023-05-24] MEDS: Furosemide 40 MG TABLET PO ×2 (07:35→12:00)
[2023-05-24] MEDS: 0.9 % Sodium Chloride Flush 3 ML SYRINGE IVFLUSH ×3 (07:39→22:39)
[2023-05-24 08:05] LABS: Glucose, Whole Blood 352 mg/dL (60-115)
[2023-05-24] MEDS: Acetaminophen 325 MG TABLET 650 MG PO ×2 (08:06→20:29)
[2023-05-24] MEDS: Insulin Lispro 100 UNIT/ML 3 ML VIAL 7 UNIT SUBCUT ×3 (08:07→16:51)
[2023-05-24] MEDS: Insulin Lispro 100 UNIT/ML 3 ML VIAL SUBCUT ×4 (08:07→20:28)
--- NOTE | 2023-05-24 10:57 | HO.PM.IMPN ---
Subjective Subjective Date of Service: 05/24/23 Interval History: seen and examined this morning follow up for near syncope, UTI feeling better this am, no fever, no abdominal pain still with hyperglycemia Review of Systems Review of Systems: Yes all other systems are reviewed and are negative Constitutional Constitutional: Denies chills and Denies fever(s) ENT Ears, Nose, Mouth, and Throat: Denies dizziness Cardiovascular Cardiovascular: Denies chest pain, Denies palpitations and Denies dyspnea Respiratory Respiratory: Denies cough and Denies dyspnea Gastrointestinal Gastrointestinal: Denies abdominal pain Neurologic Neurologic: Denies dizziness Endocrine Endocrine: Denies palpitations Physical Exam Vital Signs: Vital Signs: Last Vital Signs Temp 97.6 F 05/24/23 07:20 Pulse 60 05/24/23 07:20 Resp 20 05/24/23 07:20 BP 144/63 H 05/24/23 07:20 Pulse Ox 90 L 05/24/23 07:20 O2 Del Method CPAP 05/24/23 07:20 BMI result Body Mass Index 49.8 Appearing in no acute distress lung sounds are clear to auscultation heart regular rate rhythm, clear S1, S2 positive bowel sounds, abdomen is soft, nontender neuro patient is alert x3, no focal deficits Objective Data Active Medications Acetaminophen (Acetaminophen Supp 650 Mg Supp.Rect) 650 mg [place] Q6H PRN PRN Reason: Pain, Mild (Pain Scale 1-3) Acetaminophen (Acetaminophen 325 Mg Tablet) 650 mg PO Q6H PRN PRN Reason: Pain, Mild (Pain Scale 1-3) Last Admin: 05/24/23 08:06 Dose: 650 mg Documented By: SURENDRA Amlodipine Besylate (Amlodipine Besylate 10 Mg Tablet) 10 mg PO DAILY@1200 [facility]; Protocol Last Admin: 05/23/23 11:46 Dose: 10 mg Documented By: SURENDRA Aspirin (Aspirin Enteric Coated 81 Mg Tablet.) 81 mg PO DAILY [facility] Last Admin: 05/24/23 07:35 Dose: 81 mg Documented By: SURENDRA Atorvastatin Calcium (Atorvastatin Calcium 80 Mg Tablet) 80 mg PO BEDTIME [facility] Last Admin: 05/23/23 20:40 Dose: 80 mg Documented By: MARIXA Benzonatate (Benzonatate 100 Mg Capsule) 200 mg PO TID PRN PRN Reason: Cough Last Admin: 05/22/23 01:09 Dose: 200 mg Documented By: RICHIE Dextrose (Dextrose 50 % 25 Gm/50 Ml Syringe) 25 gm IVPUSH Q15M PRN; Protocol PRN Reason: per Hypoglycemia Standing Ord. Escitalopram Oxalate (Escitalopram Oxalate 10 Mg Tablet) 10 mg PO DAILY@1200 [facility] Last Admin: 05/23/23 11:42 Dose: 10 mg Documented By: SURENDRA Furosemide (Furosemide 40 Mg Tablet) 40 mg PO BID@0900,1200 [facility]; Protocol Last Admin: 05/24/23 07:35 Dose: 40 mg Documented By: SURENDRA Glucose (Glucose Gel 15 Gm Gel..Gram.) 15 gm PO Q15M PRN; Protocol PRN Reason: per Hypoglycemia Standing Ord. Hydroxyzine HCl (Hydroxyzine Hcl 10 Mg Tablet) 10 mg PO DAILY PRN PRN Reason: anxiety Ceftriaxone Sodium 1 gm/ (Sodium Chloride) 50 mls @ 100 mls/hr IV Q24H [facility] Stop: 05/27/23 22:29 Last Infusion: 05/23/23 22:52 Dose: 0 mls/hr Documented By: MARIXA Insulin Glargine (Insulin Glargine,Hum.Rec.Anlog 100 Unit/Ml 10 Ml Vial) 36 unit SUBCUT BEDTIME [facility] Last Admin: 05/23/23 20:41 Dose: 36 unit Documented By: MARIXA Insulin Human Lispro (Insulin Lispro 100 Unit/Ml 3 Ml Vial) 0 unit SUBCUT QIDACHS [facility]; Protocol Last Admin: 05/24/23 08:07 Dose: 10 unit Documented By: SURENDRA Insulin Human Lispro (Insulin Lispro 100 Unit/Ml 3 Ml Vial) 7 unit SUBCUT TIDAC [facility] Last Admin: 05/24/23 08:07 Dose: 7 unit Documented By: SURENDRA Isosorbide Mononitrate (Isosorbide Mononitrate 30 Mg Tab.Er.24h) 30 mg PO DAILY@1200 [facility]; Protocol Last Admin: 05/23/23 11:42 Dose: 30 mg Documented By: SURENDRA Levothyroxine Sodium (Levothyroxine Sodium 175 Mcg Tablet) 175 mcg PO DAILY@0600 [facility] Last Admin: 05/24/23 05:17 Dose: 175 mcg Documented By: MARIXA Melatonin (Melatonin 3 Mg Tablet) 6 mg PO BEDTIME PRN PRN Reason: Insomnia Last Admin: 05/23/23 20:40 Dose: 6 mg Documented By: MARIXA Metoprolol Succinate (Metoprolol Succinate Er 100 Mg Tab.Er.24h) 100 mg PO BEDTIME [facility]; Protocol Last Admin: 05/23/23 20:40 Dose: 100 mg Documented By: MARIXA Non-Formulary Medication ([facility]aglutide [[facility] 3 mg SUBCUT CARDENAS@0900 [facility] Ondansetron HCl (Ondansetron Hcl 4 Mg/2 Ml Vial) 4 mg IVPUSH Q8H PRN PRN Reason: Nausea and Vomiting Last Admin: 05/21/23 16:50 Dose: 4 mg Documented By: ABRAHANORRFela Pharmacy Consult (Consult Rx Perform Med Rec) 1 each MISCELLANE ONCE PRN PRN Reason: Consult order Sodium Chloride (0.9 % Sodium Chloride Flush 3 Ml Syringe) 3 ml IVFLUSH QSHIFT [facility] Last Admin: 05/24/23 07:39 Dose: 3 ml Documented By: PHANLYM Labs 05/22/23 06:15 05/23/23 06:00 Labs: Laboratory Results - last 24 hr 05/23/23 05/23/23 05/23/23 11:08 16:43 20:03 POC Glucose 403 H* 399 H* 415 H* 05/24/23 08:02 POC Glucose 352 H* Microbiology Microbiology Results: Microbiology 05/21/23 Unknown Urine Culture - Final Urine clean catch - Clean Catch Midstream Escherichia coli Assessment and Plan (1) Near syncope: Status: Acute (2) Urinary tract infection: Status: Acute Plan This is a 62-year-old female with pertinent history of insulin-dependent diabetes mellitus, essential hypertension, mixed hyperlipidemia, hypothyroidism, mood disorder, congestive heart failure with preserved ejection fraction, chronic kidney disease who presents to the emergency department for evaluation of dizziness and generalized weakness. insulin-dependent diabetes mellitus 2 with hyperglycemia. continue lantus, ss increased due to hyperglycemia patient to bring Trulicity today Sepsis due to acute ecoli UTI sepsis resolved continue IV ceftriaxone,started 05/21 Presyncope in the setting of above no further episodes elevated troponin related to demand from above. seen by cardiology, heparin drip stopped. echo with diastolic dysfunction and aortic stenosis. Probable underlying coronary artery disease, Cardiology recommends outpatient myocardial perfusion imaging Continue aspirin, statin, metoprolol Aortic stenosis Echo showing moderate to moderately severe aortic stenosis Outpatient Cardiology follow-up Acute kidney injury on CKD 3 creat 1.7, close to baseline likely prerenal versus ATN in the setting of sepsis. follow renal function Essential hypertension. continue metoprolol and amlodipine Congestive heart failure with preserved ejection fraction. continue home dose of lasix Mood disorder. Continue home mood stabilizers Hypothyroidism. On Synthroid Morbid obesity [place] 49.8 weight loss encouraged Full code Brunilda attending - dr. Mireles DISPO dc home when medically clear Requires ongoing inpatient stay for management of UTI with IV antibiotics, renal failure Time Spent With Patient Time: Total time managing care of this patient today ____ minutes. Quality Stroke Does the patient have a stroke diagnosis?: No VTE Prior VTE?: No VTE Risk Level:: Medical - moderate - high VTE Device Contraindication: Treatment Not Indicated VTE Drug Contraindication: N/A - Med Ordered
[2023-05-24 11:45] LABS: Glucose, Whole Blood 487 mg/dL (60-115)
[2023-05-24 11:58] VITALS: BP 107/69; PULSE 57; RESP 18; TEMP 36.4; O2SAT 94
[2023-05-24] MEDS: Isosorbide Mononitrate 30 MG TAB.ER.24H PO (12:00)
[2023-05-24] MEDS: Escitalopram Oxalate 10 MG TABLET PO (12:00)
[2023-05-24] MEDS: amLODIPine Besylate 10 MG TABLET PO (12:00)
[2023-05-24 16:00] VITALS: BP 130/60; PULSE 58; RESP 17; TEMP 36.9; O2SAT 94
[2023-05-24 16:31] LABS: Glucose, Whole Blood 374 mg/dL (60-115)
[2023-05-24 19:30] VITALS: BP 133/62; PULSE 63; RESP 18; TEMP 37.1; O2SAT 95
[2023-05-24 20:07] LABS: Glucose, Whole Blood 334 mg/dL (60-115)
[2023-05-24] MEDS: Insulin Glargine,Hum.rec.anlog 100 UNIT/ML 10 ML VIAL 36 UNIT SUBCUT (20:28)
[2023-05-24] MEDS: Atorvastatin Calcium 80 MG TABLET PO (20:29)
[2023-05-24] MEDS: Melatonin 3 MG TABLET 6 MG PO (20:30)
[2023-05-24] MEDS: Metoprolol Succinate ER 100 MG TAB.ER.24H PO (20:30)
[2023-05-24] MEDS: cefTRIAXone sodium 1 GM in 0.9 % Sodium Chloride 50 ML IV (22:35)
[2023-05-25] VITALS: BP 144/67; PULSE 55; RESP 17; TEMP 36.4; O2SAT 94
[2023-05-25 03:54] VITALS: BP 142/66; PULSE 66; RESP 16; TEMP 36.2; O2SAT 95
[2023-05-25] MEDS: Levothyroxine Sodium 175 MCG TABLET PO (05:41)
[2023-05-25 07:10] LABS: Anion Gap 17 (12-20); Blood Urea Nitrogen 38 mg/dL (9-16); Carbon Dioxide 26 mmol/L (22-29); Chloride 101 mmol/L (96-108); Creatinine Clr Calc Pharmacy 46.6; Estimated Glomerular Filt Rate 33; Glucose Random 259 mg/dL (60-115); Potassium 4.2 mmol/L (3.3-5.1); Sodium 140 mmol/L (135-145)
[2023-05-25 07:13] VITALS: BP 139/69; PULSE 62; RESP 20; TEMP 36.8; O2SAT 92
[2023-05-25 07:13] LABS: Glucose, Whole Blood 258 mg/dL (60-115)
[2023-05-25 07:15] LABS: Glucose, Whole Blood 265 mg/dL (60-115)
[2023-05-25] MEDS: Insulin Lispro 100 UNIT/ML 3 ML VIAL SUBCUT (07:57)
[2023-05-25] MEDS: 0.9 % Sodium Chloride Flush 3 ML SYRINGE IVFLUSH (07:58)
[2023-05-25] MEDS: Insulin Lispro 100 UNIT/ML 3 ML VIAL 7 UNIT SUBCUT (07:58)
[2023-05-25] MEDS: Furosemide 40 MG TABLET PO (07:58)
[2023-05-25] MEDS: Aspirin Enteric Coated 81 MG TABLET.DR PO (07:58)
--- NOTE | 2023-05-25 09:15 | PM.DS ---
DS: Providers Provider Date of Service: 05/25/23 Date of admission: 05/21/23 03:42 Primary care physician: Unknown Physician Consults: 05/21/23 05:08 Consult to Cardiology Stat Consulting Provider: [facility] Cardiovascular Services Reason for consultation: Weakness, syncope, elevated glucose, elevated troponin, no chest pain Has provider been notified: Yes 05/21/23 07:43 Consult to Cardiology Routine Consulting Provider: [facility] Cardiovascular Services Reason for consultation: NSTEMI on heparin DS: Diagnosis Discharge Diagnosis (1) Near syncope: Status: Acute (2) Urinary tract infection: Status: Acute DS: Summary Hospital Course Hospital Course: history and physical as per admitting provider. This is a 62-year-old female with pertinent history of insulin-dependent diabetes mellitus, essential hypertension, mixed hyperlipidemia, hypothyroidism, mood disorder, congestive heart failure with preserved ejection fraction, chronic kidney disease who presents to the emergency department for evaluation of dizziness and generalized weakness.? Patient states she was feeling unwell on the day of presentation.? Patient got up to use the restroom, got dizzy and fell.? No loss of consciousness.? No rhythmic jerking movement of extremities.? She states she has not been eating well.? Admits fevers and chills.? Patient also states she has generalized weakness.? Patient does have urgency but denies dysuria or hesitancy.? Denies chest discomfort, palpitations, shortness of breath, abdominal pain, changes in urinary habits. The emergency department, glucose and creatinine found to be elevated.? Urine concerning for UTI.? Troponin was found to be elevated and Cardiology was consulted who recommended heparin drip. 62-year-old woman treated for sepsis secondary to E coli UTI. Started on IV ceftriaxone sepsis symptoms completely resolved and patient no further episodes of fever during hospitalization. She had an episode of presyncope prior to hospitalization which was likely secondary to the infection but she did not have any episodes of this during hospitalization. She will be sent home with Ceftin for total of 7 days antibiotic treatment. She also had an elevated troponin during hospitalization and in the [place] thought to be secondary to NSTEMI and was started on IV heparin drip. He was seen evaluated by Cardiology who thought that this was just demand secondary to sepsis and heparin drip was subsequently stopped. Her echocardiogram did show diastolic dysfunction and aortic stenosis. The plan is for her to have outpatient cardiology workup for this. She is to continue her aspirin, statin and metoprolol. ISAÍAS on CKD stage 3. Likely secondary to pre renal versus ATN in the setting of sepsis. Treated with IV fluids and creatinine returned to baseline. Diabetes mellitus type 2 with hyperglycemia. Patient had multiple episodes of elevated blood glucose greater than 400. She had not taken her Trulicity in a few weeks and reported that this was likely the reason. Her sliding scale and mealtime insulin was adjusted several times and she was able to bring in her Trulicity from home and take a dose which did in fact help to lower her blood sugar to the 200s. She will continue her current management at home. Heart failure with preserved ejection fraction. No exacerbation. Continue Lasix Mental health. Continue medications Hypothyroidism. Continue levothyroxine Morbid obesity. BMI 49.8. Discussed importance of weight management Time Spent with Patient Time attestation: Total time managing care of this patient today ____ minutes. Discharge coordination time: Greater than 30 minutes Quality: Safe Use of Opioids Does Pt have an Active Cancer Diagnosis on the Problem List?: No Quality: Stroke Does the patient have a stroke diagnosis?: No Physical Exam Vital Signs: Vital Signs: Last Vital Signs Temp 98.2 F 05/25/23 07:13 Pulse 62 05/25/23 07:13 Resp 20 05/25/23 07:13 BP 139/69 05/25/23 07:13 Pulse Ox 92 05/25/23 07:13 O2 Del Method Room Air 05/25/23 07:13 BMI result Body Mass Index 49.8 Appearing in no acute distress head is normocephalic atraumatic eyes pupils are PERRLA sclera is anicteric mouth throat mucous membranes are intact and moist neck is supple no lymphadenopathy, no JVD noted lung sounds are clear to auscultation heart regular rate rhythm, clear S1, S2 positive bowel sounds, abdomen is soft, nontender neuro patient is alert x3, no focal deficits DS: Data Data Completed and Pending Completed studies during hospitalization [Text1]: Procedures Assistance with Respiratory Ventilation, Less than 24 Consecutive Hours, Continuous Positive Airway Pressure (08/06/20) Labs on day of discharge: Laboratory Results - last 24 hr 05/23/23 05/24/23 05/24/23 07:27 11:40 16:15 Sodium Potassium Chloride Carbon Dioxide Anion Gap BUN Creatinine Estim Creat Clear Calc Estimated GFR POC Glucose 258 H 487 H* 374 H* Random Glucose Calcium 05/24/23 05/25/23 05/25/23 19:53 06:05 07:03 Sodium 140 Potassium 4.2 Chloride 101 Carbon Dioxide 26 Anion Gap 17 BUN 38 H Creatinine 1.57 H Estim Creat Clear Calc 46.6 Estimated GFR 33 POC Glucose 334 H 265 H Random Glucose 259 H Calcium 10.0 D Preliminary micro results at discharge 05/20/23 21:43 Blood Culture - Preliminary Blood - Venous No growth after 48 hours. Discharge Plan Discharge Anticipated Discharge Date/Time: 05/25/23 09:07 Patient Disposition: Home, Self-Care Discharge Diagnosis: sepsis Ecoli UTI elevated troponin ISAÍAS Aortic stenosis Referrals: Raheem Schulte MD [Physician] - 1 Week Discharge Medications: New cefuroxime axetil 500 mg tablet 500 mg PO BID Qty: 6 0RF Continued (DME) FreeStyle Lite Strips Strip See Rx Instructions .ROUTE .MEDSUPPLY Qty: 10 Rx Instructions: As directed rosuvastatin 40 mg tablet 40 mg PO BEDTIME Qty: 90 1RF (DME) lancets [TRUEplus Lancets] 33 gauge misc See Rx Instructions .ROUTE .MEDSUPPLY Qty: 350 3RF Rx Instructions: 4 times a day ketotifen fumarate 0.025 % (0.035 %) drops 1 drp ophthalmic (eye) BID PRN (Reason: Allergy Symptoms) aspirin 81 mg tablet,delayed release (DR/EC) 81 mg PO DAILY amlodipine 10 mg tablet 10 mg PO DAILY@1200 diphenhydramine HCl [Banophen] 25 mg capsule 25 mg PO Q6H PRN (Reason: itch or allergies) hydroxyzine HCl 10 mg tablet 10 mg PO DAILY PRN (Reason: anxiety) loratadine 10 mg tablet 10 mg PO DAILY PRN (Reason: Allergic Symptoms) escitalopram oxalate 10 mg tablet 10 mg PO DAILY@1200 cholecalciferol (vitamin D3) 25 mcg (1,000 unit) tablet 25 mcg PO DAILY@1200 spironolactone 25 mg Tablet 25 mg PO DAILY Qty: 30 0RF Protocol: Hold for SBP< HOLD for SBP < : 90 metoprolol succinate 100 mg Tablet Extended Release 24 Hr 100 mg PO BEDTIME Qty: 30 0RF Protocol: Hold for SBP/HR < HOLD for SBP < : 90 HOLD for HR < : 60 John Bucio 0.4 mg-300 mcg- 250 mcg tablet 1 tab PO DAILY@1200 furosemide 40 mg tablet 40 mg PO BID@0900,1200 levothyroxine 175 mcg tablet 175 mcg PO DAILY@0600 ibuprofen 200 mg Tablet 400 mg PO Q8H PRN (Reason: Pain) isosorbide mononitrate 30 mg tablet extended release 24 hr 30 mg PO DAILY@1200 Protocol: Hold for SBP< HOLD for SBP < : 90 ezetimibe 10 mg tablet 10 mg PO DAILY@1200 Humalog KwikPen Insulin 200 unit/mL (3 mL) insulin pen 1 sliding scale dose subcut TIDAC Toujeo Max U-300 SoloStar 300 unit/mL (3 mL) insulin pen 45 unit subcut BEDTIME Trulicity 3 mg/0.5 mL pen injector 3 mg subcut CARDENAS@0900 melatonin 5 mg tablet 10 mg PO BEDTIME PRN (Reason: Sleep) (DME) FreeStyle Phil 2 [place] Misc See Rx Instructions .ROUTE .MEDSUPPLY Qty: 1 0RF Rx Instructions: As directed (DME) FreeStyle Phil 2 Sensor Kit See Rx Instructions .ROUTE .MEDSUPPLY Qty: 2 11RF Rx Instructions: As directed every 2 weeks Discharge Orders: Discharge Order (Routine); Ordered 05/25/23 Ordered By: Gale Gamboa Diet: Advance to usual diet Activity on Discharge: As tolerated Stand Alone Forms: Patient Portal Discharge page Care Plan Goals: complete resolution of symptoms Health Concerns: sepsis Ecoli UTI elevated troponin ISAÍAS Aortic stenosis Plan of Treatment: Follow-up with economic development specialist for further workup regarding aortic stenosis Take all medications as prescribed Assessment: see discharge summary
--- NOTE | 2023-05-25 09:23 | MHC.CM.PN ---
Patient has been medically cleared for dc to home today, self care. CM met with Patient at bedside and addressed IMM with her, providing Patient with the original and placing a copy on the chart. Patient's will provide transportation to home.
== END 2023-05-25 11:31 | disposition home or self-care (01) | DRG 872 ==
LOC: HO.ED 05-21 05:14 → HO.EDOVER 05-21 06:32 → HO.IMC 05-21 13:41
PROVIDERS: Physician Assistant Medical; Admitting Provider Student in an Organized Health Care Education/Training Program; Emergency Provider Emergency Medicine Emergency Medical Services; PCP Student in an Organized Health Care Education/Training Program; Visit Provider Nurse Practitioner Acute Care
DX: A41.51 Sepsis due to Escherichia coli [E. coli] (principal); Z68.42 Body mass index [BMI] 45.0-49.9, adult; N39.0 Urinary tract infection, site not specified; N17.9 Acute kidney failure, unspecified; I13.0 Hypertensive heart and chronic kidney disease with heart failure and stage 1 through stage 4 chronic kidney disease, or unspecified chronic kidney disease; I50.32 Chronic diastolic (congestive) heart failure; E11.22 Type 2 diabetes mellitus with diabetic chronic kidney disease; E11.65 Type 2 diabetes mellitus with hyperglycemia; E78.2 Mixed hyperlipidemia; E66.01 Morbid (severe) obesity due to excess calories; F39 Unspecified mood [affective] disorder; N18.30 Chronic kidney disease, stage 3 unspecified; E11.42 Type 2 diabetes mellitus with diabetic polyneuropathy; I35.0 Nonrheumatic aortic (valve) stenosis; Z79.4 Long term (current) use of insulin; Z79.82 Long term (current) use of aspirin; Z79.85 Long-term (current) use of injectable non-insulin antidiabetic drugs; Z79.890 Hormone replacement therapy; Z79.899 Other long term (current) drug therapy
CPT/HCPCS: 36415; 70450; 71045; 80048; 80076; 81001; 81003; 82803; 82947; 83036; 83605; 84484; 85025; 85027; 85379; 85610; 85730; 87040; 87086; 87088; 87147; 87186; 87205; 87502; 87635; 93005; 93306; 99285; J0696; J1643; J2405; Q9957

== ENCOUNTER → 2023-05-20 20:57 | Outpatient (BNV) | payer MEDICARE, SELFPAY | PROVIDERS: Emergency Provider Emergency Medicine Emergency Medical Services; Visit Provider Student in an Organized Health Care Education/Training Program | DX: R55 Syncope and collapse (principal); N39.0 Urinary tract infection, site not specified; I35.0 Nonrheumatic aortic (valve) stenosis | CPT/HCPCS: 99223; 99232; 99233; 99239; 99499 ==

== ENCOUNTER → 2023-05-21 03:42 | Outpatient (BNV) | payer MEDICARE, SELFPAY | PROVIDERS: Admitting Provider Student in an Organized Health Care Education/Training Program; Emergency Provider Emergency Medicine Emergency Medical Services; Visit Provider Internal Medicine Cardiovascular Disease | DX: I35.0 Nonrheumatic aortic (valve) stenosis (principal); R77.8 Other specified abnormalities of plasma proteins | CPT/HCPCS: 93306; 99222; 99233 ==

== ENCOUNTER → 2023-06-19 09:18 | Outpatient (REF) | payer MEDICARE, MEDICAID, SELFPAY ==
--- NOTE | ~2023-06-19 | NM_ITS ---
Lexiscan Myocardial perfusion study Indication: Syncope, elevated troponins, assess for coronary disease and ischemia Technique: The patient was brought in for a Lexiscan perfusion study on 06/19/2023 and was injected 0.4 mg of Lexiscan intravenously. Within a minute of this injection 40 mCi of sestamibi was given intravenously. Images were obtained using the SPECT gamma camera interlaced with the gating device. Images were obtained in supine position. Resting perfusion study was performed on 06/22/2023. Patient was administered 40 mCi of sestamibi intravenously at rest. Images were then obtained in supine position. Images were processed with the software and compared side to side in short axis, horizontal long axis and vertical long axis views. Total DLP 159mGy-cm. Findings: Raw acquisition reviewed. The stress perfusion study showed diminished tracer uptake in the mid to distal lateral wall. There is improvement with CT attenuation correction suggestive of soft tissue attenuation artifact. The gated study shows normal LV systolic function with calculated LVEF of 64%. LV cavity is normal in size. The gated study shows reduced thickening in the lateral wall. Resting study shows diminished tracer uptake in the distal part of lateral wall. There is improvement with CT attenuation correction. Gating at rest reveals normal wall motion with ejection fraction at 57%. The findings are consistent with partially reversible mid to distal lateral wall perfusion defect. NM/NM thiago perf SPECT rest & str Impression: 1. Myocardial perfusion imaging study shows possible circumflex territory ischemia. Could also be from soft tissue attenuation artifact. 2. Gated LVEF is 64% during stress and 57% during rest. 3. Transient ischemic dilatation not present. EKG component of the test reported separately.
--- NOTE | 2023-06-19 09:21 | CA_ITS ---
Acquisition Time: 2023-06-19 09:42:06 Total Exercise Time: 00:02:00 Test Indications: SYNCOPE, ELEVATED TROPONINS Medications: SEE H Protocol: LEXISCAN Max HR: 066 BPM 41% of Pred: 158 BPM Max BP: 114/060 mmHG Max Work Load: 1.0 METS Pharmacolgoical stress test with Lexiscan injection whiile sitting and kicking her legs, without anginal symptoms, with isolated PVCs, with normotensive response to injection, with nondiagnositic EKGs. Aminophylline 75mg IVP given to reverse Lexiscan. Nuclear images pending. Test reviewed with Dr. Parmar. Referred By: Raheem Schulte Overread By: Jina Cline
== END ==
LOC: HO.CARD 09:18
PROVIDERS: Visit Provider Internal Medicine Cardiovascular Disease
DX: I21.4 Non-ST elevation (NSTEMI) myocardial infarction (principal); R55 Syncope and collapse; R77.8 Other specified abnormalities of plasma proteins
CPT/HCPCS: 78452; 93017; A9500; J0280; J2785

== ENCOUNTER → 2023-06-19 09:21 | Outpatient (BNV) | payer MEDICARE, SELFPAY | PROVIDERS: Visit Provider Nurse Practitioner | DX: I21.4 Non-ST elevation (NSTEMI) myocardial infarction (principal) | CPT/HCPCS: 78452; 93016; 93018 ==

== ENCOUNTER 2023-08-05 22:45 | Emergency (ER) | payer MEDICARE, SELFPAY ==
[2023-08-05 22:53] VITALS: BP 121/48; BP 145/62; PULSE 74; PULSE 92; RESP 18; TEMP 36.8; O2SAT 96; BMI 51.1
[2023-08-05 23:30] VITALS: BP 134/59; PULSE 75; RESP 16; TEMP 36.8; O2SAT 97
[2023-08-06 00:10] LABS: Glucose, Whole Blood 71 mg/dL (60-115)
[2023-08-06 00:11] LABS: MANUAL DIFF FLAG NO
[2023-08-06 00:13] LABS: Basophils Absolute Auto 0.1 X10*3/uL (0.0-0.2); Basophils Percent Auto 0.6 % (0-2); Eosinophils Absolute Auto 0.2 X10*3/uL (0.0-0.4); Eosinophils Percent Auto 1.8 % (0-4); Hematocrit 37.5 % (37.0-47.0); Hemoglobin 12.1 g/dl (12.0-16.0); Imm Gran Abs Auto 0.02 X10*3/uL (0.00-0.03); Imm Gran Pct Auto 0.2 % (0.0-0.4); Lymphocytes Absolute Auto 1.4 X10*3/uL (1.2-4.9); Lymphocytes Percent Auto 14.3 % (20-40); Mean Corpuscular HGB Conc 32.3 g/dl (31.0-35.0); Mean Corpuscular Hemoglobin 27.9 pg (27.0-33.0); Mean Corpuscular Volume 86.4 fL (80.0-98.0); Mean Platelet Volume 10.2 fL (9.4-12.3); Monocytes Absolute Auto 0.7 X10*3/uL (0.1-1.2); Monocytes Percent Auto 7.7 % (2-11); Neutrophils Absolute Auto 7.3 x10*3/uL (2.0-8.3); Neutrophils Percent Auto 75.4 % (45-73); Platelet Count 207 X10*3/uL (160-400); Red Blood Count 4.34 X10*6/uL (4.20-5.50); Red Cell Distribution Width 13.4 % (11.0-16.0); White Blood Count 9.6 X10*3/uL (4.8-10.8)
[2023-08-06 00:28] LABS: Alanine Aminotransferase 20 U/L (0-31); Albumin Level 3.9 g/dL (3.5-5.0); Alkaline Phosphatase 58 U/L (39-117); Anion Gap 13 (12-20); Aspartate Amino Transferase 24 U/L (5-31); Bilirubin Total 0.4 mg/dL (0.0-1.0); Blood Urea Nitrogen 26 mg/dL (9-16); Calcium 9.4 mg/dL (8.4-10.2); Carbon Dioxide 23 mmol/L (22-29); Chloride 112 mmol/L (96-108); Creatinine Clr Calc Pharmacy 54.3; Estimated Glomerular Filt Rate 40; Glucose Random 66 mg/dL (60-115); Potassium 3.9 mmol/L (3.3-5.1); Sodium 144 mmol/L (135-145); Total Protein 7.5 g/dL (6.5-8.0)
--- NOTE | 2023-08-06 00:32 | ED_ITS ---
HPI - Overdose General Chief Complaint: Recheck/Abnormal Lab/Rx Stated Complaint: accidentally took 34 extra humalog Time Seen by Provider: 08/05/23 23:44 Source: patient Mode of arrival: EMS History of Present Illness HPI Narrative: 63-year-old female brought in by ambulance from home where she reports she accidentally took double her dose of Humalog insulin, specifically she took her regularly scheduled for dinner but then she accidentally took the Humalog insulin prior to bed. Patient reports that POC was down to 52 but is been trending up and patient has been eating candy bars. Related Data Home Medications Medication Instructions Recorded Confirmed amlodipine 10 mg tablet 10 mg PO DAILY@1200 08/06/20 05/21/23 aspirin 81 mg tablet,delayed 81 mg PO DAILY 08/06/20 05/21/23 release cholecalciferol (vitamin D3) 25 25 mcg PO DAILY@1200 08/06/20 05/21/23 mcg (1,000 unit) tablet diphenhydramine HCl 25 mg capsule 25 mg PO Q6H PRN itch or allergies 08/06/20 05/21/23 (Banophen) escitalopram oxalate 10 mg tablet 10 mg PO DAILY@1200 08/06/20 05/21/23 hydroxyzine HCl 10 mg tablet 10 mg PO DAILY PRN anxiety 08/06/20 05/21/23 ketotifen fumarate 0.025 % (0.035 1 drp ophthalmic (eye) BID PRN 08/06/20 05/21/23 %) eye drops Allergy Symptoms loratadine 10 mg tablet 10 mg PO DAILY PRN Allergic 08/06/20 05/21/23 Symptoms blood sugar diagnostic (TahiraStyle #10 ea 10/01/20 05/21/23 Lite Strips) melatonin 5 mg tablet 10 mg PO BEDTIME PRN Sleep 10/22/21 05/21/23 dulaglutide 3 mg/0.5 mL 3 mg subcut CARDENAS@0900 05/21/23 05/21/23 subcutaneous pen injector (Trulicity) ezetimibe 10 mg tablet 10 mg PO DAILY@1200 05/21/23 05/21/23 furosemide 40 mg tablet 40 mg PO BID@0900,1200 05/21/23 05/21/23 ibuprofen 200 mg tablet 400 mg PO Q8H PRN Pain 05/21/23 05/21/23 insulin glargine U-300 conc 300 45 unit subcut BEDTIME 05/21/23 05/21/23 unit/mL (3 mL) subcutaneous pen (Toujeo Max U-300 SoloStar) insulin lispro 200 unit/mL (3 mL) 1 sliding scale dose subcut TIDAC 05/21/23 05/21/23 subcutaneous pen (Humalog KwikPen U-200 Insulin) isosorbide mononitrate 30 mg 30 mg PO DAILY@1200 05/21/23 05/21/23 tablet,extended release 24 hr levothyroxine 175 mcg tablet 175 mcg PO DAILY@0600 05/21/23 05/21/23 cpdwchln-bwn-jdelt acid 0.4 1 tab PO DAILY@1200 05/21/23 05/21/23 mg-lycopene 300 mcg-lutein 250 mcg tablet (Cerovite Senior) Previous Rx's Medication Instructions Recorded metoprolol succinate 100 mg 100 mg PO BEDTIME #30 tabs 08/16/20 tablet,extended release 24 hr spironolactone 25 mg tablet 25 mg PO DAILY #30 tabs 08/16/20 rosuvastatin 40 mg tablet 40 mg PO BEDTIME #90 tabs 08/21/21 TRUEplus Lancets 33 gauge (lancets) #350 ea 01/09/22 flash glucose scanning reader #1 ea 01/29/22 (FreeStyle Phil 2 [place]) flash glucose sensor (FreeStyle #2 ea 01/29/22 Phil 2 Sensor kit) cefuroxime axetil 500 mg tablet 500 mg PO BID #6 tabs 05/25/23 Allergies Allergy/AdvReac Type Severity Reaction Status Date / Time lisinopril [LISINOPRIL] AdvReac Unknown ITCHY EYES Verified 05/20/23 20:30 Review of Systems 2 Review of Systems: Pertinent positives and negatives as stated in HPI [facility] Past Medical History Source: nursing notes reviewed Medical History COVID-19 vaccine series completed Type 2 diabetes mellitus with polyneuropathy Diabetes type 2, uncontrolled CKD (chronic kidney disease) (HFpEF) heart failure with preserved ejection fraction Hypokalemia Hypomagnesemia Acute on chronic kidney failure Acute on chronic heart failure with preserved ejection fraction (HFpEF) Aortic stenosis Anasarca Congestive heart failure Kidney disease Syncope CHF (congestive heart failure) Diabetes mellitus with hyperglycemia Dyslipidemia, goal LDL below 100 Essential hypertension Type 2 diabetes mellitus with diabetic nephropathy Other specified hypothyroidism Autoimmune thyroiditis Abnormal dexamethasone suppression test Morbid obesity due to excess calories BMI 45.0-49.9, adult Surgical History History of History of removal of calculus of renal pelvis through percutaneous nephrostomy Family History Family History Family/Other Diabetes Mother History of high blood pressure Father History of high blood pressure Maternal Grandmother History of high blood pressure Social History Social History Household Members: Family Housing: Apartment Are you a primary personal care aide to a significant other at home: No Do you presently have visiting nurse or other home services: Yes Alcohol intake: current Alcohol intake frequency: a few times a week Alcohol type: wine Patient Tobacco Use Status: Never used Tobacco Advance Directives: No Advance Directives Information Provided: Yes service: No Current occupational status: disabled Physical Exam 2 Vital Signs: Vital Signs: Last Vital Signs Temp 98.8 F 08/06/23 01:41 Pulse 70 08/06/23 01:41 Resp 16 08/06/23 01:41 BP 127/49 L 08/06/23 01:41 Pulse Ox 95 08/06/23 01:41 O2 Del Method Room Air 08/06/23 01:41 BMI result Body Mass Index 51.1 VITAL SIGNS: Reviewed. GENERAL: Well developed, well nourished, in no acute distress. HEAD: Normocephalic/atraumatic EYES: PERRLA, EOMI EARS: Ext canals without abnormality NOSE: Nares patent bilateral OROPHARYNX: no oral lesions noted, posterior pharynx clear NECK: Supple, no adenopathy LUNGS: Normal breath sounds. No adventitious sounds or accessory muscle use. SpO2<95> CARDIOVASCULAR: Regular rate and rhythm without noted murmurs ABDOMEN: Soft, non-tender, non-distended with bowel sounds. MUSCULOSKELETAL: No tenderness, deformities, or effusions noted on gross inspection. EXTREMITIES: No cyanosis, clubbing or edema. SKIN: Inspection of the skin reveals no rashes NEUROLOGIC: Alert and oriented x 4. Strength and sensation to light touch were grossly intact x 4. Medical Decision Making Medical Decision Making [facility] Narrative: 63-year-old female with history and clinical presentation consistent with accidental overdose on her Humalog insulin. I reviewed basic labs and hematologic indices are grossly within normal limits, chemistry in his sees are grossly within normal limits. Patient will be observed with frequent point of care checks, offered sound which is and milk. When patient can maintain and steady or increasing blood glucose x3 she can be discharged home. Signed out to Dr Caraballo Differential Diagnosis Differential Diagnoses: The differential diagnosis associated with the presentation includes Please see the discussion above Admission/Observation Consideration of admission/observation: Escalation of care including admission/observation considered Please see the discussion above Lab Data [facility] Lab Attestation statement: I reviewed the patient's lab results. Please see the discussion above 08/06/23 00:06 08/06/23 00:06 Labs: Lab Results 08/06/23 08/06/23 Range/Units 00:02 00:06 WBC 9.6 (4.8-10.8) X10*3/uL RBC 4.34 (4.20-5.50) X10*6/uL Hgb 12.1 (12.0-16.0) g/dl Hct 37.5 (37.0-47.0) % MCV 86.4 (80.0-98.0) fL MCH 27.9 (27.0-33.0) pg MCHC 32.3 (31.0-35.0) g/dl RDW 13.4 (11.0-16.0) % Plt Count 207 (160-400) X10*3/uL MPV 10.2 (9.4-12.3) fL Immature Gran % (Auto) 0.2 (0.0-0.4) % Neut % (Auto) 75.4 H (45-73) % Lymph % (Auto) 14.3 L (20-40) % [place] % (Auto) 7.7 (2-11) % Eos % (Auto) 1.8 (0-4) % Baso % (Auto) 0.6 (0-2) % Lymph # (Auto) 1.4 (1.2-4.9) X10*3/uL [place] # (Auto) 0.7 (0.1-1.2) X10*3/uL Eos # (Auto) 0.2 (0.0-0.4) X10*3/uL Baso # (Auto) 0.1 (0.0-0.2) X10*3/uL Abs Immat Gran (auto) 0.02 (0.00-0.03) X10*3/uL Absolute Neuts (auto) 7.3 (2.0-8.3) x10*3/uL Absolute Nucleated RBC 0.000 (0.0-0.012) X10*3/uL Nucleated RBC % (auto) 0.0 (0.0-0.2) /100WBC Sodium 144 (135-145) mmol/L Potassium 3.9 (3.3-5.1) mmol/L Chloride 112 H (96-108) mmol/L Carbon Dioxide 23 (22-29) mmol/L Anion Gap 13 (12-20) BUN 26 H (9-16) mg/dL Creatinine 1.35 (0.5-1.4) mg/dL Estim Creat Clear Calc 54.3 Estimated GFR 40 POC Glucose 71 (60-115) mg/dL Random Glucose 66 (60-115) mg/dL Calcium 9.4 (8.4-10.2) mg/dL Total Bilirubin 0.4 (0.0-1.0) mg/dL AST 24 (5-31) U/L ALT 20 (0-31) U/L Alkaline Phosphatase 58 (39-117) U/L Total Protein 7.5 (6.5-8.0) g/dL Albumin 3.9 (3.5-5.0) g/dL Critical Care Time Critical Care Time Critical Care Time: Yes Total Critical Care Time: 30 Attestation: I personally attest to this time spent taking care of the patient. Discharge Plan Discharge Clinical Impression: Accidental overdose of insulin Patient Disposition: Still a Patient Instructions: Adult Overdose (ED) Additional Instructions: 1. Resume all home medications as prescribed. 2. Please check your medication labels very carefully each time. Return to the ER for any worsening symptoms. Prescriptions: No Action (DME) FreeStyle Lite Strips Strip See Rx Instructions .ROUTE .MEDSUPPLY Qty: 10 Rx Instructions: As directed rosuvastatin 40 mg tablet 40 mg PO BEDTIME Qty: 90 1RF (DME) lancets [TRUEplus Lancets] 33 gauge misc See Rx Instructions .ROUTE .MEDSUPPLY Qty: 350 3RF Rx Instructions: 4 times a day ketotifen fumarate 0.025 % (0.035 %) drops 1 drp ophthalmic (eye) BID PRN (Reason: Allergy Symptoms) aspirin 81 mg tablet,delayed release (DR/EC) 81 mg PO DAILY amlodipine 10 mg tablet 10 mg PO DAILY@1200 diphenhydramine HCl [Banophen] 25 mg capsule 25 mg PO Q6H PRN (Reason: itch or allergies) hydroxyzine HCl 10 mg tablet 10 mg PO DAILY PRN (Reason: anxiety) loratadine 10 mg tablet 10 mg PO DAILY PRN (Reason: Allergic Symptoms) escitalopram oxalate 10 mg tablet 10 mg PO DAILY@1200 cholecalciferol (vitamin D3) 25 mcg (1,000 unit) tablet 25 mcg PO DAILY@1200 spironolactone 25 mg Tablet 25 mg PO DAILY Qty: 30 0RF Protocol: Hold for SBP< HOLD for SBP < : 90 metoprolol succinate 100 mg Tablet Extended Release 24 Hr 100 mg PO BEDTIME Qty: 30 0RF Protocol: Hold for SBP/HR < HOLD for SBP < : 90 HOLD for HR < : 60 Cerovite Senior 0.4 mg-300 mcg- 250 mcg tablet 1 tab PO DAILY@1200 furosemide 40 mg tablet 40 mg PO BID@0900,1200 levothyroxine 175 mcg tablet 175 mcg PO DAILY@0600 ibuprofen 200 mg Tablet 400 mg PO Q8H PRN (Reason: Pain) isosorbide mononitrate 30 mg tablet extended release 24 hr 30 mg PO DAILY@1200 Protocol: Hold for SBP< HOLD for SBP < : 90 ezetimibe 10 mg tablet 10 mg PO DAILY@1200 Humalog KwikPen Insulin 200 unit/mL (3 mL) insulin pen 1 sliding scale dose subcut TIDAC Toujeo Max U-300 SoloStar 300 unit/mL (3 mL) insulin pen 45 unit subcut BEDTIME Trulicity 3 mg/0.5 mL pen injector 3 mg subcut CARDENAS@0900 cefuroxime axetil 500 mg tablet 500 mg PO BID Qty: 6 0RF melatonin 5 mg tablet 10 mg PO BEDTIME PRN (Reason: Sleep) (DME) FreeStyle Phil 2 [place] Misc See Rx Instructions .ROUTE .MEDSUPPLY Qty: 1 0RF Rx Instructions: As directed (DME) FreeGENIAC Phil 2 Sensor Kit See Rx Instructions .ROUTE .MEDSUPPLY Qty: 2 11RF Rx Instructions: As directed every 2 weeks Referrals: Fatmata Sky MD [Primary Care Provider] -
[2023-08-06 01:41] VITALS: BP 127/49; PULSE 70; RESP 16; TEMP 37.1; O2SAT 95
[2023-08-06 03:37] VITALS: BP 134/45; PULSE 81; RESP 16; O2SAT 97
[2023-08-06 03:42] LABS: Glucose, Whole Blood 106 mg/dL (60-115)
[2023-08-06 03:42] LABS: Glucose, Whole Blood 158 mg/dL (60-115)
[2023-08-06 03:42] LABS: Glucose, Whole Blood 81 mg/dL (60-115)
[2023-08-06 03:42] LABS: Glucose, Whole Blood 61 mg/dL (60-115)
[2023-08-06 03:42] LABS: Glucose, Whole Blood 134 mg/dL (60-115)
[2023-08-06 03:42] LABS: Glucose, Whole Blood 148 mg/dL (60-115)
== END 2023-08-06 04:02 | disposition still patient (30) ==
PROVIDERS: Student in an Organized Health Care Education/Training Program; Emergency Provider Emergency Medicine; PCP Student in an Organized Health Care Education/Training Program
DX: T38.3X1A Poisoning by insulin and oral hypoglycemic [antidiabetic] drugs, accidental (unintentional), initial encounter (principal); Y92.9 Unspecified place or not applicable; E11.9 Type 2 diabetes mellitus without complications; Z79.4 Long term (current) use of insulin; Z79.899 Other long term (current) drug therapy
CPT/HCPCS: 36415; 80053; 82947; 85025; 99284

== ENCOUNTER 2023-09-07 11:46 | Outpatient (REF) | payer MEDICARE, SELFPAY ==
[2023-09-07 12:23] LABS: MANUAL DIFF FLAG NO
[2023-09-07 12:47] LABS: Basophils Absolute Auto 0.1 X10*3/uL (0.0-0.2); Basophils Percent Auto 1.2 % (0-2); Eosinophils Absolute Auto 0.3 X10*3/uL (0.0-0.4); Eosinophils Percent Auto 3.9 % (0-4); Hemoglobin 12.5 g/dl (12.0-16.0); Imm Gran Abs Auto 0.01 X10*3/uL (0.00-0.03); Imm Gran Pct Auto 0.2 % (0.0-0.4); Lymphocytes Absolute Auto 1.7 X10*3/uL (1.2-4.9); Lymphocytes Percent Auto 24.8 % (20-40); Mean Corpuscular HGB Conc 32.1 g/dl (31.0-35.0); Mean Corpuscular Hemoglobin 27.3 pg (27.0-33.0); Mean Corpuscular Volume 85.2 fL (80.0-98.0); Mean Platelet Volume 10.9 fL (9.4-12.3); Monocytes Absolute Auto 0.4 X10*3/uL (0.1-1.2); Neutrophils Absolute Auto 4.3 x10*3/uL (2.0-8.3); Neutrophils Percent Auto 63.9 % (45-73); Platelet Count 222 X10*3/uL (160-400); Red Blood Count 4.58 X10*6/uL (4.20-5.50); Red Cell Distribution Width 14.1 % (11.0-16.0); White Blood Count 6.7 X10*3/uL (4.8-10.8)
[2023-09-07 13:05] LABS: Estimated Average Glucose 171 mg/dL; Hemoglobin A1c % 7.6 % (<6.0)
[2023-09-07 13:13] LABS: Parathyroid Hormone Intact 148.2 pg/mL (8.7-77.1)
[2023-09-07 13:22] LABS: Anion Gap 17 (12-20); Blood Urea Nitrogen 36 mg/dL (9-16); Calcium 9.9 mg/dL (8.4-10.2); Carbon Dioxide 26 mmol/L (22-29); Chloride 104 mmol/L (96-108); Estimated Glomerular Filt Rate 33; Iron 49 mcg/dL (30-160); Percent Iron Saturation 17 % (15-50); Potassium 4.5 mmol/L (3.3-5.1); Sodium 142 mmol/L (135-145); Total Iron Binding Capacity 294 mcg/dL (228-428); Unsaturated Iron Binding 245 ug/dL; Uric Acid 10.5 mg/dL (2.4-5.7)
[2023-09-07 13:37] LABS: TSH reflex Free T4 0.55 uIU/mL (0.32-4.0); Vitamin D 25-OH Total 36.1 ng/mL (>30)
[2023-09-07 14:30] LABS: Creatinine Urine 99.24 mg/dL; Microalbum/Creatinine Ratio Ur 181.3 ug/mg cr (<30); Protein/Creatinine Ratio, Ur 0.35 (<0.2); Total Protein Urine Random 35 mg/dL (<12)
[2023-09-11 01:19] LABS: VITAMIN D (1,25 OH) D3 23 pg/mL; Vit D (1,25-Dihydroxy) Total 23 pg/mL (18-72); Vitamin D (1,25 OH) D2 <8 pg/mL
== END 2023-09-07 11:47 | disposition home or self-care (01) ==
LOC: HO.LAB 11:46
PROVIDERS: Visit Provider Internal Medicine Nephrology
DX: I12.9 Hypertensive chronic kidney disease with stage 1 through stage 4 chronic kidney disease, or unspecified chronic kidney disease (principal); E11.22 Type 2 diabetes mellitus with diabetic chronic kidney disease; N18.32 Chronic kidney disease, stage 3b; E11.21 Type 2 diabetes mellitus with diabetic nephropathy
CPT/HCPCS: 36415; 80051; 82043; 82306; 82310; 82330; 82565; 82570; 82652; 83036; 83540; 83970; 84156; 84443; 84520; 84550; 85025

== ENCOUNTER 2023-09-17 10:32 | Outpatient (AMB) | payer MEDICARE, MEDICAID, SELFPAY ==
--- NOTE | 2023-09-17 10:38 | A.OFFVIS_ITS ---
Intake Vital Signs 09/17/23 10:39 Height 5 ft 2 in Weight 269 lb 6.478 oz BMI 49.3 BP 130/60 Blood Pressure Location Lt brachial Position Sitting Pulse 67 Pulse Source Pulse Oximeter Intake Visit Reasons: 6 mth f/up Intake Note: 6 mnth f/up pt its feeling fine [employer]riving [employer] In[employer] Required: No Accompanied by: Spouse Allergies lisinopril [LISINOPRIL] Adverse Reaction (Unknown, Verified 05/20/23 20:30) ITCHY EYES Medication List - Last Reconciled 09/17/23 by Raheem Schulte MD amlodipine 10 mg PO DAILY@1200 aspirin 81 mg PO DAILY blood sugar diagnostic (FreeStyle Lite Strips) As directed cefuroxime axetil 500 mg PO BID cholecalciferol (vitamin D3) 25 mcg PO DAILY@1200 diphenhydramine HCl (Banophen) 25 mg PO Q6H PRN dulaglutide (Trulicity) 3 mg subcut CARDENAS@0900 empagliflozin (Jardiance) 10 mg PO DAILY escitalopram oxalate 10 mg PO DAILY@1200 ezetimibe 10 mg PO DAILY@1200 flash glucose scanning reader (IDENTEC GROUPStyle Phil 2 [place]) As directed flash glucose sensor (FreeStyle Phil 2 Sensor kit) As directed every 2 weeks furosemide 40 mg PO BID@0900,1200 hydroxyzine HCl 10 mg PO DAILY PRN ibuprofen 400 mg PO Q8H PRN insulin glargine U-300 conc (Toujeo Max U-300 SoloStar) 45 units subcut BEDTIME insulin lispro (Humalog KwikPen U-200 Insulin) 1 sliding scale dose subcut TIDAC isosorbide mononitrate ER 30 mg See Protocol PO DAILY@1200 ketotifen fumarate 0.025%(0.035%) 1 drp ophthalmic (eye) BID PRN levothyroxine 175 mcg PO DAILY@0600 loratadine 10 mg PO DAILY PRN melatonin 10 mg PO BEDTIME PRN metoprolol succinate ER 100 mg See Protocol PO BEDTIME imhtfqqv-zsz-CY-lycopen-lutein 0.4 mg-300 mcg- 250 mcg (Cerovite Senior) 1 tab PO DAILY@1200 rosuvastatin 40 mg PO BEDTIME spironolactone 25 mg See Protocol PO DAILY TRUEplus Lancets (lancets) 4 times a day NS HPI HPI Comments History of Present Illness Details Kati comes for follow-up after supposedly she was supposed to have coronary CTA which she did not have as she was not feeling well that day. She is rescheduled for in November. She continues to be limited in amount of exercise she can do because of a knee arthritis. Her she says she does climb 4 [address] she lives. She denies any worsening exertional chest pain or shortness of breath. Denies any other heart failure symptoms. She was recently started on Jardiance and is tolerating this well. Denies any lightheadedness or syncope. Denies any prolonged palpitation irregular heartbeat. [facility] Medical History (Updated 09/17/23 @ 11:01 by Raheem Schulte MD) Aortic stenosis COVID-19 vaccine series completed Type 2 diabetes mellitus with polyneuropathy Diabetes type 2, uncontrolled CKD (chronic kidney disease) (HFpEF) heart failure with preserved ejection fraction Hypokalemia Hypomagnesemia Acute on chronic kidney failure Acute on chronic heart failure with preserved ejection fraction (HFpEF) Anasarca Congestive heart failure Kidney disease Syncope CHF (congestive heart failure) Diabetes mellitus with hyperglycemia Dyslipidemia, goal LDL below 100 Essential hypertension Type 2 diabetes mellitus with diabetic nephropathy Other specified hypothyroidism Autoimmune thyroiditis Abnormal dexamethasone suppression test Morbid obesity due to excess calories BMI 45.0-49.9, adult Surgical History History of History of removal of calculus of renal pelvis through percutaneous nephrostomy Family History Family/Other Diabetes Mother History of high blood pressure Father History of high blood pressure Maternal Grandmother History of high blood pressure Social History Household Members: Family Housing: Apartment Are you a primary pet care attendant to a significant other at home: No Do you presently have visiting nurse or other home services: Yes Alcohol intake: current Alcohol intake frequency: a few times a week Alcohol type: wine Comment: uses cane occasionally Patient Tobacco Use Status: Never used Tobacco service: No Current occupational status: disabled Review of Systems Const Reports chills, Reports fatigue, Reports fever(s), Reports frequent falls, Reports weakness, Reports weight gain and Reports weight loss ENT Reports dizziness Card Reports chest pain, Reports leg edema, Reports lightheadedness, Reports palpitations, Reports dyspnea and Reports dyspnea on exertion Resp Reports cough, Reports dyspnea and Reports dyspnea on exertion GI Reports hematochezia Musc Reports abnormal gait, Reports muscle weakness, Reports numbness, Reports radiating pain into limb and Reports tingling Neuro Reports abnormal gait, Reports dizziness, Reports frequent falls, Reports numbness, Reports tingling and Reports weakness Endo Reports fatigue and Reports palpitations Physical Exam Vital Signs: Last Vital Signs Pulse 67 09/17/23 10:39 BP 130/60 09/17/23 10:39 BMI result Body Mass Index 49.3 Const General: cooperative, comfortable, no acute distress, alert, awake and poor hygiene Nutritional Appearance: obese Orientation/consciousness: patient oriented x3 Limitations: no limitations Neck Neck: Yes trachea midline, Yes supple and Yes no JVD Resp Effort & Inspection: normal respiratory effort Auscultation: clear to auscultation bilaterally Cardio Jugular venous distension: no JVD Rate: regular rate Rhythm: regular rhythm Heart sounds: S1 normal heart sound present, S2 normal heart sound present, no click, no gallops, Murmur heart sound present systolic late and soft and no rubs Skin General skin exam: no rashes or lesions noted Neuro General: patient oriented x3 and no focal motor deficits Extrem General: Yes no clubbing, cyanosis or edema Psych Appearance: grossly normal Assessment & Plan Assessment & Plan (1) (HFpEF) heart failure with preserved ejection fraction: Code(s): I50.30 - Unspecified diastolic (congestive) heart failure Plan: Heart failure preserved ejection fraction, clinically euvolemic and well compensated with marked limitation due to orthopedic issues. She is high risk for progressive symptoms given her limited exercise capacity and risk for rehospitalization. Continue current diuretic regimen. Agree with Jardiance therapy. Advised daily weight monitoring avoidance of salt loading. Additional diuretics for sudden weight gain or worsening symptoms of heart failure. Advised to call me if she has worsening symptoms. Continue spironolactone therapy. Quarterly renal function test should be pursued. Will continue monitor for progressive aortic stenosis. She is also strongly recommended to pursue workup for coronary artery disease given her abnormal myocardial perfusion imaging as this could contribute to her progressive symptoms as well as impact her outcome. She understands and agrees. (2) Aortic stenosis: Comment: Aortic stenosis which had versus moderate. No interventions required and not reason for heart failure. Code(s): I35.0 - Nonrheumatic aortic (valve) stenosis Plan: Aortic stenosis which clinically appears to be moderate to severe. She has no new symptoms at current point time. No progressive heart failure symptoms. Follow-up echocardiogram in 4 months time. Continue aggressive vascular risk factor modification. Continue low-dose aspirin therapy. Continue aggressive diabetes management, she says this under better control. Goal hemoglobin A1c less than 7%. Blood pressure is currently well optimized. Continue statin therapy target goal LDL less than 70 mg/dL. Follow up in the clinic in 4 months time, sooner p.r.n.. Thank you for allowing me to partake in the care Coding Level of Care Code Est Pt Level 4 (09982) Diagnoses (HFpEF) heart failure with preserved ejection fraction I50.30 Aortic stenosis I35.0
[2023-09-17 10:39] VITALS: BP 130/60; PULSE 67; BMI 49.3
== END 2023-09-17 10:58 | disposition home or self-care (01) ==
PROVIDERS: Visit Provider Internal Medicine Cardiovascular Disease
DX: I50.30 Unspecified diastolic (congestive) heart failure (principal); I35.0 Nonrheumatic aortic (valve) stenosis
CPT/HCPCS: 99214

== ENCOUNTER → 2023-09-17 10:32 | Outpatient (BNVA) | payer MEDICARE, SELFPAY | PROVIDERS: Visit Provider Internal Medicine Cardiovascular Disease | DX: I50.30 Unspecified diastolic (congestive) heart failure (principal); I35.0 Nonrheumatic aortic (valve) stenosis | CPT/HCPCS: 99212 ==

== ENCOUNTER 2023-10-12 23:49 | Emergency (ER) | payer MEDICARE, MEDICAID, SELFPAY ==
--- NOTE | ~2023-10-12 | XR_ITS ---
EXAMINATION: XR PORTABLE CHEST CLINICAL INFORMATION: Cough. COMPARISON: 05/20/2023 TECHNIQUE: AP portable upright view of the chest FINDINGS: Lungs are clear. No consolidation, pneumothorax, or pleural effusion. Cardiac and mediastinal contours are normal. Pulmonary vasculature is unremarkable. Degenerative spondylosis in the thoracic spine. XR/XR chest 1V IMPRESSION: No acute cardiopulmonary findings
[2023-10-13 00:05] VITALS: BP 112/48; BP 150/90; PULSE 80; PULSE 89; RESP 18; TEMP 36.4; O2SAT 97; BMI 47.5
[2023-10-13 00:36] LABS: MANUAL DIFF FLAG NO
[2023-10-13 00:39] LABS: Basophils Absolute Auto 0.1 X10*3/uL (0.0-0.2); Basophils Percent Auto 1.1 % (0-2); Eosinophils Absolute Auto 0.4 X10*3/uL (0.0-0.4); Eosinophils Percent Auto 5.2 % (0-4); Hematocrit 40.3 % (37.0-47.0); Hemoglobin 12.8 g/dl (12.0-16.0); Imm Gran Abs Auto 0.01 X10*3/uL (0.00-0.03); Imm Gran Pct Auto 0.1 % (0.0-0.4); Lymphocytes Absolute Auto 1.6 X10*3/uL (1.2-4.9); Lymphocytes Percent Auto 22.1 % (20-40); Mean Corpuscular HGB Conc 31.8 g/dl (31.0-35.0); Mean Corpuscular Hemoglobin 27.2 pg (27.0-33.0); Mean Corpuscular Volume 85.6 fL (80.0-98.0); Mean Platelet Volume 10.6 fL (9.4-12.3); Monocytes Absolute Auto 0.7 X10*3/uL (0.1-1.2); Neutrophils Absolute Auto 4.6 x10*3/uL (2.0-8.3); Neutrophils Percent Auto 62.5 % (45-73); Platelet Count 194 X10*3/uL (160-400); Red Blood Count 4.71 X10*6/uL (4.20-5.50); White Blood Count 7.3 X10*3/uL (4.8-10.8)
[2023-10-13 00:47] LABS: COVID-19 Test Positive (Negative); IDNOW Serial# 08D9AD1C
[2023-10-13 00:55] LABS: Alanine Aminotransferase 26 U/L (0-31); Albumin Level 3.9 g/dL (3.5-5.0); Alkaline Phosphatase 62 U/L (39-117); Anion Gap 15 (12-20); Aspartate Amino Transferase 28 U/L (5-31); Bilirubin Total 0.3 mg/dL (0.0-1.0); Blood Urea Nitrogen 45 mg/dL (9-16); Calcium 9.3 mg/dL (8.4-10.2); Carbon Dioxide 25 mmol/L (22-29); Chloride 103 mmol/L (96-108); Creatinine Clr Calc Pharmacy 38.8; Estimated Glomerular Filt Rate 28; Glucose Random 222 mg/dL (60-115); Potassium 3.8 mmol/L (3.3-5.1); Sodium 139 mmol/L (135-145); Total Protein 7.7 g/dL (6.5-8.0)
[2023-10-13 06:19] VITALS: BP 131/69; PULSE 61; RESP 16; TEMP 37; O2SAT 96
--- NOTE | 2023-10-13 07:49 | ED_ITS ---
HPI - URI/Sore Throat General Chief Complaint: Upper Respiratory Symptoms Stated Complaint: +COVID, COUGH, RUNNY NOSE, LOSS OF TASTE Time Seen by Provider: 10/13/23 07:15 Source: patient Mode of arrival: ambulatory Limitations: no limitations History of Present Illness HPI Narrative: Patient is a 63 yr old female with a past medical history of DM2, HLD, CKD, HfpEF, TO and aortic stenosis presenting with body aches, fever, and chills for 1 day. Patient has never had COVID-19 before. Denies cp, sob, recent sick contacts, nausea, vomiting, diarrhea, constipation or abdominal pain. Reports dry cough and loss of taste and smell. Patient has not taken any medications to manage her symptoms. Related Data Home Medications Medication Instructions Recorded Confirmed amlodipine 10 mg tablet 10 mg PO DAILY@1200 08/06/20 09/17/23 aspirin 81 mg tablet,delayed 81 mg PO DAILY 08/06/20 09/17/23 release cholecalciferol (vitamin D3) 25 25 mcg PO DAILY@1200 08/06/20 09/17/23 mcg (1,000 unit) tablet diphenhydramine HCl 25 mg capsule 25 mg PO Q6H PRN itch or allergies 08/06/20 09/17/23 (Banophen) escitalopram oxalate 10 mg tablet 10 mg PO DAILY@1200 08/06/20 09/17/23 hydroxyzine HCl 10 mg tablet 10 mg PO DAILY PRN anxiety 08/06/20 09/17/23 ketotifen fumarate 0.025 % (0.035 1 drp ophthalmic (eye) BID PRN 08/06/20 09/17/23 %) eye drops Allergy Symptoms loratadine 10 mg tablet 10 mg PO DAILY PRN Allergic 08/06/20 09/17/23 Symptoms blood sugar diagnostic (FreeStyle #10 ea 10/01/20 09/17/23 Lite Strips) melatonin 5 mg tablet 10 mg PO BEDTIME PRN Sleep 10/22/21 09/17/23 dulaglutide 3 mg/0.5 mL 3 mg subcut CARDENAS@0900 05/21/23 09/17/23 subcutaneous pen injector (Trulicity) ezetimibe 10 mg tablet 10 mg PO DAILY@1200 05/21/23 09/17/23 furosemide 40 mg tablet 40 mg PO BID@0900,1200 05/21/23 09/17/23 ibuprofen 200 mg tablet 400 mg PO Q8H PRN Pain 05/21/23 09/17/23 insulin glargine U-300 conc 300 45 unit subcut BEDTIME 05/21/23 09/17/23 unit/mL (3 mL) subcutaneous pen (Toujeo Max U-300 SoloStar) insulin lispro 200 unit/mL (3 mL) 1 sliding scale dose subcut TIDAC 05/21/23 09/17/23 subcutaneous pen (Humalog KwikPen U-200 Insulin) isosorbide mononitrate 30 mg 30 mg PO DAILY@1200 05/21/23 09/17/23 tablet,extended release 24 hr levothyroxine 175 mcg tablet 175 mcg PO DAILY@0600 05/21/23 09/17/23 svxqbelc-qxh-atjfq acid 0.4 1 tab PO DAILY@1200 05/21/23 09/17/23 mg-lycopene 300 mcg-lutein 250 mcg tablet (Cerovite Senior) empagliflozin 10 mg tablet 10 mg PO DAILY 09/17/23 09/17/23 (Jardiance) Previous Rx's Medication Instructions Recorded metoprolol succinate 100 mg 100 mg PO BEDTIME #30 tabs 08/16/20 tablet,extended release 24 hr spironolactone 25 mg tablet 25 mg PO DAILY #30 tabs 08/16/20 rosuvastatin 40 mg tablet 40 mg PO BEDTIME #90 tabs 08/21/21 TRUEplus Lancets 33 gauge (lancets) #350 ea 01/09/22 flash glucose scanning reader #1 ea 01/29/22 (FreeStyle Phil 2 [place]) flash glucose sensor (FreeStyle #2 ea 01/29/22 Phil 2 Sensor kit) cefuroxime axetil 500 mg tablet 500 mg PO BID #6 tabs 05/25/23 albuterol sulfate 90 mcg/actuation 2 inh inhalation Q4-6H PRN 10/13/23 breath activated powder inhaler shortness of breath or wheezing #1 ea benzonatate 100 mg capsule 100 mg PO BID PRN cough #20 caps 10/13/23 Allergies Allergy/AdvReac Type Severity Reaction Status Date / Time lisinopril [LISINOPRIL] AdvReac Unknown ITCHY EYES Verified 10/13/23 00:04 Review of Systems 2 Review of Systems: Constitutional : + Fever, Malaise, Chills, Fatigue. No Weight loss ENT/Mouth : + Rhinorrhea. No sore throat Eyes: No Eye Pain, No Swelling, No Redness Cardiovascular : No Chest Pain, No SOB, No Dyspnea on Exertion, No Orthopnea, No Edema, No Palpitations Respiratory : + Cough. No Sputum, No Wheezing Gastrointestinal : No Nausea, No Vomiting, No Diarrhea, No Constipation, No abdominal Pain, No Hematochezia, No Melena Genitourinary : No Dysuria, No Urinary Frequency, No Hematuria, Musculoskeletal : + Myalgias. No joint pain, No Joint Swelling Skin : No Skin Lesions, No rash Neuro : No Weakness, No Numbness, No Dizziness, No Headache Psych : No Anxiety/Panic, No Depression Heme/Lymph: No Bruising, No Bleeding,No Lymphadenopathy All other systems reviewed and are negative Yes all other systems are reviewed and are negative PMFSH Past Medical History Attestation statement: The following information was validated with the patient. Source: old records reviewed and nursing notes reviewed Onset Date is defined in the Problem List Problems that require an onset date and time if occurred within 24 hrs of arrival to the ED Aortic Dissection and Rupture; Neurologic impairment; Cardiopulmonary Arrest; Endotracheal Intubation; Insertion or Replacement of Mechanical Circulatory Assist Device Medical History Aortic stenosis COVID-19 vaccine series completed Type 2 diabetes mellitus with polyneuropathy Diabetes type 2, uncontrolled CKD (chronic kidney disease) (HFpEF) heart failure with preserved ejection fraction Hypokalemia Hypomagnesemia Acute on chronic kidney failure Acute on chronic heart failure with preserved ejection fraction (HFpEF) Anasarca Congestive heart failure Kidney disease Syncope CHF (congestive heart failure) Diabetes mellitus with hyperglycemia Dyslipidemia, goal LDL below 100 Essential hypertension Type 2 diabetes mellitus with diabetic nephropathy Other specified hypothyroidism Autoimmune thyroiditis Abnormal dexamethasone suppression test Morbid obesity due to excess calories BMI 45.0-49.9, adult Surgical History History of History of removal of calculus of renal pelvis through percutaneous nephrostomy Family History Family History Family/Other Diabetes Mother History of high blood pressure Father History of high blood pressure Maternal Grandmother History of high blood pressure Social History Social History Household Members: Family Housing: Apartment Are you a primary managed care provider to a significant other at home: No Do you presently have visiting nurse or other home services: Yes Alcohol intake: current Alcohol intake frequency: a few times a week Alcohol type: wine Comment: uses cane occasionally Patient Tobacco Use Status: Never used Tobacco Advance Directives: No Advance Directives Information Provided: Yes service: No Current occupational status: disabled Physical Exam 2 Vital Signs: Vital Signs: Last Vital Signs Temp 98.6 F 10/13/23 06:19 Pulse 61 10/13/23 06:19 Resp 16 10/13/23 06:19 BP 131/69 10/13/23 06:19 Pulse Ox 96 10/13/23 06:19 O2 Del Method Room Air 10/13/23 06:19 BMI result Body Mass Index 47.5 vss Appearance: Ill appearing. Alert.? Oriented X3.? No acute distress.? Head: Normocephalic, atraumatic, no step-offs or deformities Eyes: Pupils equal, round and reactive to light.? ENT: Clear rhinorrhea bilaterally. Pharynx normal.?External ears normal, TMs normal bilaterally and EAC's normal. No pain with manipulation of external ears bilaterally. No mastoid tenderness. Neck: Normal inspection.?Neck supple.? CVS: Normal heart rate and rhythm.? Pulses normal.? Respiratory: No respiratory distress.? Breath sounds equal bilaterally, no wheezes rales or rhonchi. Abdomen: Soft and nontender.? Skin: Skin warm and dry.? Normal skin color.? Normal skin turgor.? Extremities: No lower extremity edema.?5/5 strength to bilateral upper and lower extremities Neuro: Oriented X 3.? No motor deficit.? No sensory deficit. CN 2-12 intact Course Reevaluation(s) Reevaluation #1: CBC unremarkable. Chemistry with acute on chronic kidney injury appears to be around her baseline she is tolerating p.o. encourage p.o. hydration. COVID positive. Likely contributing to patient's symptoms. Educated patient on diagnosis and treatment plan, answered all question, patient verbalizes understanding. At this time patient will be discharged home, advised to return with new or worsening symptoms. Educated on worrisome signs and symptoms and when to return. At this time I feel comfortable discharge home. Patient on multiple medications that would interact with antiviral therapy therefore not indicated at this time. Patient with very mild symptoms. Time: 08:35 Medical Decision Making Medical Decision Making [facility] Narrative: 63-year-old female presenting with viral symptoms ongoing for the past few days. Physical examination benign ? This is likely flu versus COVID versus RSV versus other viral illness? Versus bronchitis.? Unlikely pneumonia, PE, ACS, threat to airway. Unlikely metabolic derangments Plan- viral test? Differential Diagnosis Differential Diagnoses: The differential diagnosis associated with the presentation includes This is likely flu versus COVID versus RSV versus other viral illness? Versus bronchitis.? Unlikely pneumonia, PE, ACS, threat to airway. Unlikely metabolic derangments Admission/Observation Consideration of admission/observation: Escalation of care including admission/observation considered Lab Data [facility] Lab Attestation statement: I reviewed the patient's lab results. + COVID 19. CMP elevated Glu 222, BUN 45 and Cr 1.81. 10/13/23 00:31 10/13/23 00:31 Labs: Lab Results 10/13/23 Range/Units 00:31 WBC 7.3 (4.8-10.8) X10*3/uL RBC 4.71 (4.20-5.50) X10*6/uL Hgb 12.8 (12.0-16.0) g/dl Hct 40.3 (37.0-47.0) % MCV 85.6 (80.0-98.0) fL MCH 27.2 (27.0-33.0) pg MCHC 31.8 (31.0-35.0) g/dl RDW 14.0 (11.0-16.0) % Plt Count 194 (160-400) X10*3/uL MPV 10.6 (9.4-12.3) fL Immature Gran % (Auto) 0.1 (0.0-0.4) % Neut % (Auto) 62.5 (45-73) % Lymph % (Auto) 22.1 (20-40) % Owen % (Auto) 9.0 (2-11) % Eos % (Auto) 5.2 H (0-4) % Baso % (Auto) 1.1 (0-2) % Lymph # (Auto) 1.6 (1.2-4.9) X10*3/uL Owen # (Auto) 0.7 (0.1-1.2) X10*3/uL Eos # (Auto) 0.4 (0.0-0.4) X10*3/uL Baso # (Auto) 0.1 (0.0-0.2) X10*3/uL Abs Immat Gran (auto) 0.01 (0.00-0.03) X10*3/uL Absolute Neuts (auto) 4.6 (2.0-8.3) x10*3/uL Absolute Nucleated RBC 0.000 (0.0-0.012) X10*3/uL Nucleated RBC % (auto) 0.0 (0.0-0.2) /100WBC Sodium 139 (135-145) mmol/L Potassium 3.8 (3.3-5.1) mmol/L Chloride 103 (96-108) mmol/L Carbon Dioxide 25 (22-29) mmol/L Anion Gap 15 (12-20) BUN 45 H (9-16) mg/dL Creatinine 1.81 H (0.5-1.4) mg/dL Estim Creat Clear Calc 38.8 Estimated GFR 28 Random Glucose 222 H (60-115) mg/dL Calcium 9.3 D (8.4-10.2) mg/dL Total Bilirubin 0.3 (0.0-1.0) mg/dL AST 28 (5-31) U/L ALT 26 (0-31) U/L Alkaline Phosphatase 62 (39-117) U/L Total Protein 7.7 (6.5-8.0) g/dL Albumin 3.9 (3.5-5.0) g/dL COVID-19 (NELLY) Positive A (Negative) COVID-19 Clin Com See Note Discharge Plan Discharge Clinical Impression: COVID-19, CKD (chronic kidney disease) Patient Disposition: Home, Self-Care Instructions: COVID-19 (Coronavirus Disease 2019) (ED) Additional Instructions: Take your medications as prescribed. If you were prescribed antibiotics today, it is important that you take your medication to their entirety, do not skip any doses, do not finish them early. Today you tested positive for COVID-19. Take Ibuprofen or Tylenol as needed for fevers or body aches. Quarantine for 5 days and ensure you wear a mask. After 5 days you should wear a mask for 5 days after that. Practice social distancing and good hand hygiene. Drink plenty of fluids. Follow-up with your primary care provider this week. Return to the emergency department with new or worsening symptoms. In case of emergency call 911 You can purchase a pulse oximeter from your local pharmacy or grocery store, and monitor your oxygen saturation if it goes below 94% you should return to the emergency department for further evaluation. Prescriptions: New benzonatate 100 mg capsule 100 mg PO BID PRN (Reason: cough) Qty: 20 0RF albuterol sulfate 90 mcg/actuation aerosol powdr breath activated 2 inh inhalation Q4-6H PRN (Reason: shortness of breath or wheezing) Qty: 1 0RF No Action (DME) FreeStyle Lite Strips Strip See Rx Instructions .ROUTE .MEDSUPPLY Qty: 10 Rx Instructions: As directed rosuvastatin 40 mg tablet 40 mg PO BEDTIME Qty: 90 1RF (DME) lancets [TRUEplus Lancets] 33 gauge misc See Rx Instructions .ROUTE .MEDSUPPLY Qty: 350 3RF Rx Instructions: 4 times a day ketotifen fumarate 0.025 % (0.035 %) drops 1 drp ophthalmic (eye) BID PRN (Reason: Allergy Symptoms) aspirin 81 mg tablet,delayed release (DR/EC) 81 mg PO DAILY amlodipine 10 mg tablet 10 mg PO DAILY@1200 diphenhydramine HCl [Banophen] 25 mg capsule 25 mg PO Q6H PRN (Reason: itch or allergies) hydroxyzine HCl 10 mg tablet 10 mg PO DAILY PRN (Reason: anxiety) loratadine 10 mg tablet 10 mg PO DAILY PRN (Reason: Allergic Symptoms) escitalopram oxalate 10 mg tablet 10 mg PO DAILY@1200 cholecalciferol (vitamin D3) 25 mcg (1,000 unit) tablet 25 mcg PO DAILY@1200 spironolactone 25 mg Tablet 25 mg PO DAILY Qty: 30 0RF Protocol: Hold for SBP< HOLD for SBP < : 90 metoprolol succinate 100 mg Tablet Extended Release 24 Hr 100 mg PO BEDTIME Qty: 30 0RF Protocol: Hold for SBP/HR < HOLD for SBP < : 90 HOLD for HR < : 60 Cerovite Senior 0.4 mg-300 mcg- 250 mcg tablet 1 tab PO DAILY@1200 furosemide 40 mg tablet 40 mg PO BID@0900,1200 levothyroxine 175 mcg tablet 175 mcg PO DAILY@0600 ibuprofen 200 mg Tablet 400 mg PO Q8H PRN (Reason: Pain) isosorbide mononitrate 30 mg tablet extended release 24 hr 30 mg PO DAILY@1200 Protocol: Hold for SBP< HOLD for SBP < : 90 ezetimibe 10 mg tablet 10 mg PO DAILY@1200 Humalog KwikPen Insulin 200 unit/mL (3 mL) insulin pen 1 sliding scale dose subcut TIDAC Toujeo Max U-300 SoloStar 300 unit/mL (3 mL) insulin pen 45 unit subcut BEDTIME Trulicity 3 mg/0.5 mL pen injector 3 mg subcut CARDENAS@0900 cefuroxime axetil 500 mg tablet 500 mg PO BID Qty: 6 0RF melatonin 5 mg tablet 10 mg PO BEDTIME PRN (Reason: Sleep) (DME) FreeStyle Phil 2 [place] Misc See Rx Instructions .ROUTE .MEDSUPPLY Qty: 1 0RF Rx Instructions: As directed (DME) FreeStyle Phil 2 Sensor Kit See Rx Instructions .ROUTE .MEDSUPPLY Qty: 2 11RF Rx Instructions: As directed every 2 weeks Jardiance 10 mg tablet 10 mg PO DAILY Referrals: Fatmata Sky MD [Primary Care Provider] - 2 days Stand Alone Forms: Work/School Release Interventions: ED Discharge Assessment Last Done: 10/13/23 08:30 Discharge Date/Time: 10/13/23 08:31
== END 2023-10-13 08:31 | disposition home or self-care (01) ==
PROVIDERS: Emergency Provider Emergency Medicine Emergency Medical Services; PCP Student in an Organized Health Care Education/Training Program
DX: U07.1 COVID-19 (principal); R05.9 Cough, unspecified; Z79.899 Other long term (current) drug therapy
CPT/HCPCS: 71045; 80053; 85025; 87635; 99282; 99283

== ENCOUNTER 2023-10-27 16:38 | Emergency (ER) | payer MEDICARE, MEDICAID, SELFPAY ==
--- NOTE | 2023-10-27 | ECG_ITS ---
Test Reason : CHEST PAIN Blood Pressure : / mmHG Vent. Rate : 063 BPM Atrial Rate : 063 BPM P-R Int : 174 ms QRS Dur : 086 ms QT Int : 440 ms P-R-T Axes : 015 -12 053 degrees QTc Int : 450 ms Normal sinus rhythm Normal ECG When compared with ECG of 21-MAY-2023 04:27, Premature ventricular complexes are no longer Present Premature atrial complexes are no longer Present Referred By: Generic ED Physician Electronically Signed By:Agapito Anthony
--- NOTE | ~2023-10-27 | XR_ITS ---
EXAMINATION: XR CHEST CLINICAL INFORMATION: Shortness of breath COMPARISON: 10/13/2023 and selected images from priors TECHNIQUE: Frontal view of the chest was obtained. FINDINGS: No acute consolidation or effusion. Lung volumes stable. Grossly normal heart and mediastinum. Atherosclerotic disease in the arch. Chronic low lung volumes. Chronic minor elevation of the right diaphragm. Nonobstructive gas pattern. Degenerative spine disease. XR/XR chest 1V IMPRESSION: No acute disease identified.
[2023-10-27 17:30] VITALS: BP 141/62; BP 158/70; PULSE 62; PULSE 80; RESP 18; TEMP 36.3; O2SAT 95; O2SAT 98; BMI 45.0
[2023-10-27 19:57] LABS: MANUAL DIFF FLAG NO
[2023-10-27 20:03] LABS: Basophils Absolute Auto 0.1 X10*3/uL (0.0-0.2); Eosinophils Absolute Auto 0.2 X10*3/uL (0.0-0.4); Eosinophils Percent Auto 2.2 % (0-4); Hematocrit 43.5 % (37.0-47.0); Hemoglobin 13.8 g/dl (12.0-16.0); Imm Gran Abs Auto 0.02 X10*3/uL (0.00-0.03); Imm Gran Pct Auto 0.2 % (0.0-0.4); Lymphocytes Absolute Auto 1.6 X10*3/uL (1.2-4.9); Lymphocytes Percent Auto 17.3 % (20-40); Mean Corpuscular HGB Conc 31.7 g/dl (31.0-35.0); Mean Corpuscular Hemoglobin 26.6 pg (27.0-33.0); Mean Corpuscular Volume 83.8 fL (80.0-98.0); Mean Platelet Volume 10.7 fL (9.4-12.3); Monocytes Absolute Auto 0.5 X10*3/uL (0.1-1.2); Monocytes Percent Auto 5.7 % (2-11); Neutrophils Absolute Auto 6.8 x10*3/uL (2.0-8.3); Neutrophils Percent Auto 73.6 % (45-73); Platelet Count 257 X10*3/uL (160-400); Red Blood Count 5.19 X10*6/uL (4.20-5.50); Red Cell Distribution Width 14.1 % (11.0-16.0); White Blood Count 9.2 X10*3/uL (4.8-10.8)
[2023-10-27 20:20] LABS: Alanine Aminotransferase 25 U/L (0-31); Albumin Level 4.3 g/dL (3.5-5.0); Alkaline Phosphatase 59 U/L (39-117); Anion Gap 15 (12-20); Aspartate Amino Transferase 29 U/L (5-31); Bilirubin Direct 0.2 mg/dL (0.0-0.5); Bilirubin Total 0.5 mg/dL (0.0-1.0); Blood Urea Nitrogen 36 mg/dL (9-16); Carbon Dioxide 28 mmol/L (22-29); Chloride 101 mmol/L (96-108); Estimated Glomerular Filt Rate 34; Glucose Random 128 mg/dL (60-115); Potassium 4.3 mmol/L (3.3-5.1); Sodium 140 mmol/L (135-145); Total Protein 8.6 g/dL (6.5-8.0)
[2023-10-27 20:22] LABS: B Type Natriuretic Peptide 145 pg/mL (<100)
[2023-10-27 20:26] LABS: Troponin-I High Sensitivity 9.4 ng/L (<3.5-17.0)
[2023-10-27 20:39] VITALS: BP 141/69; PULSE 70; RESP 16; O2SAT 97
--- NOTE | 2023-10-27 22:07 | ED_ITS ---
HPI - General Adult General Chief complaint: General Medical Stated complaint: anxiety,chest pain,SOB Time Seen by Provider: 10/27/23 21:03 Source: patient and EMS Mode of arrival: EMS History of Present Illness HPI narrative: 63-year-old female with arrival via EMS with reported shortness of breath secondary to anxiety/panic attack which has gotten worse throughout the day secondary to being evicted from her home she does deny any chest pain or pressure. She is looking for a snf. Crisis was at patient's residence yesterday. Patient has a lot of life stressors which include being affected, she did attempt to counter the addiction in court on Thursday but was unsuccessful. Related Data Home Medications Medication Instructions Recorded Confirmed amlodipine 10 mg tablet 10 mg PO DAILY@1200 08/06/20 09/17/23 aspirin 81 mg tablet,delayed 81 mg PO DAILY 08/06/20 09/17/23 release cholecalciferol (vitamin D3) 25 25 mcg PO DAILY@1200 08/06/20 09/17/23 mcg (1,000 unit) tablet diphenhydramine HCl 25 mg capsule 25 mg PO Q6H PRN itch or allergies 08/06/20 09/17/23 (Banophen) escitalopram oxalate 10 mg tablet 10 mg PO DAILY@1200 08/06/20 09/17/23 hydroxyzine HCl 10 mg tablet 10 mg PO DAILY PRN anxiety 08/06/20 09/17/23 ketotifen fumarate 0.025 % (0.035 1 drp ophthalmic (eye) BID PRN 08/06/20 09/17/23 %) eye drops Allergy Symptoms loratadine 10 mg tablet 10 mg PO DAILY PRN Allergic 08/06/20 09/17/23 Symptoms blood sugar diagnostic (FreeStyle #10 ea 10/01/20 09/17/23 Lite Strips) melatonin 5 mg tablet 10 mg PO BEDTIME PRN Sleep 10/22/21 09/17/23 dulaglutide 3 mg/0.5 mL 3 mg subcut CARDENAS@0900 05/21/23 09/17/23 subcutaneous pen injector (Trulicity) ezetimibe 10 mg tablet 10 mg PO DAILY@1200 05/21/23 09/17/23 furosemide 40 mg tablet 40 mg PO BID@0900,1200 05/21/23 09/17/23 ibuprofen 200 mg tablet 400 mg PO Q8H PRN Pain 05/21/23 09/17/23 insulin glargine U-300 conc 300 45 unit subcut BEDTIME 05/21/23 09/17/23 unit/mL (3 mL) subcutaneous pen (Toujeo Max U-300 SoloStar) insulin lispro 200 unit/mL (3 mL) 1 sliding scale dose subcut TIDAC 05/21/23 09/17/23 subcutaneous pen (Humalog KwikPen U-200 Insulin) isosorbide mononitrate 30 mg 30 mg PO DAILY@1200 05/21/23 09/17/23 tablet,extended release 24 hr levothyroxine 175 mcg tablet 175 mcg PO DAILY@0600 05/21/23 09/17/23 cbaqonbq-ogz-oyzic acid 0.4 1 tab PO DAILY@1200 05/21/23 09/17/23 mg-lycopene 300 mcg-lutein 250 mcg tablet (Cerovite Senior) empagliflozin 10 mg tablet 10 mg PO DAILY 09/17/23 09/17/23 (Jardiance) Previous Rx's Medication Instructions Recorded metoprolol succinate 100 mg 100 mg PO BEDTIME #30 tabs 08/16/20 tablet,extended release 24 hr spironolactone 25 mg tablet 25 mg PO DAILY #30 tabs 08/16/20 rosuvastatin 40 mg tablet 40 mg PO BEDTIME #90 tabs 08/21/21 TRUEplus Lancets 33 gauge (lancets) #350 ea 01/09/22 flash glucose scanning reader #1 ea 01/29/22 (FreeStyle Phil 2 [place]) flash glucose sensor (FreeStyle #2 ea 01/29/22 Phil 2 Sensor kit) cefuroxime axetil 500 mg tablet 500 mg PO BID #6 tabs 05/25/23 albuterol sulfate 90 mcg/actuation 2 inh inhalation Q4-6H PRN 10/13/23 breath activated powder inhaler shortness of breath or wheezing #1 ea benzonatate 100 mg capsule 100 mg PO BID PRN cough #20 caps 10/13/23 Allergies Allergy/AdvReac Type Severity Reaction Status Date / Time lisinopril [LISINOPRIL] AdvReac Unknown ITCHY EYES Verified 10/13/23 00:04 Review of Systems 2 Review of Systems: Pertinent positives and negatives as stated in [facility] Past Medical History Source: nursing notes reviewed Medical History Aortic stenosis COVID-19 vaccine series completed Type 2 diabetes mellitus with polyneuropathy Diabetes type 2, uncontrolled CKD (chronic kidney disease) (HFpEF) heart failure with preserved ejection fraction Hypokalemia Hypomagnesemia Acute on chronic kidney failure Acute on chronic heart failure with preserved ejection fraction (HFpEF) Anasarca Congestive heart failure Kidney disease Syncope CHF (congestive heart failure) Diabetes mellitus with hyperglycemia Dyslipidemia, goal LDL below 100 Essential hypertension Type 2 diabetes mellitus with diabetic nephropathy Other specified hypothyroidism Autoimmune thyroiditis Abnormal dexamethasone suppression test Morbid obesity due to excess calories BMI 45.0-49.9, adult Surgical History History of History of removal of calculus of renal pelvis through percutaneous nephrostomy Family History Family History Family/Other Diabetes Mother History of high blood pressure Father History of high blood pressure Maternal Grandmother History of high blood pressure Social History Social History Household Members: Family Housing: Apartment Are you a primary care director to a significant other at home: No Do you presently have visiting nurse or other home services: Yes Alcohol intake: current Alcohol intake frequency: a few times a week Alcohol type: wine Comment: uses cane occasionally Patient Tobacco Use Status: Never used Tobacco Advance Directives: No Advance Directives Information Provided: Yes service: No Current occupational status: disabled Physical Exam ED Vital Signs: Vital Signs - 24 hr 10/27/23 17:30 10/27/23 20:39 10/27/23 22:10 Temperature 97.3 F Pulse Rate 62 70 74 Respiratory Rate 18 16 16 Blood Pressure 141/62 H 141/69 H 106/48 L Pulse Oximetry 95 97 96 Oxygen Delivery Method Room Air Room Air Room Air BMI result Body Mass Index 45.0 VITAL SIGNS: Reviewed. GENERAL: Elevated BMI, Well developed, well nourished, in no acute distress. HEAD: Normocephalic/atraumatic EYES: PERRLA, EOMI EARS: Ext canals without abnormality NOSE: Nares patent bilateral OROPHARYNX: no oral lesions noted, posterior pharynx clear NECK: Supple, no adenopathy LUNGS: Normal breath sounds, no tachypnea/wheeze/rhonchi/rales. SpO2<97> CARDIOVASCULAR: Regular rate and rhythm without noted murmurs, no JVD or lower extremity edema. ABDOMEN: Soft, non-tender, non-distended with bowel sounds. MUSCULOSKELETAL: No tenderness, deformities, or effusions noted on gross inspection. EXTREMITIES: No cyanosis, clubbing or edema. SKIN: Inspection of the skin reveals no rashes NEUROLOGIC: Alert and oriented x 4. Strength and sensation to light touch were grossly intact x 4. Medical Decision Making Medical Decision Making [facility] Narrative: 63-year-old female with history and clinical presentation, DDX: Anxiety, panic attack, no clinical evidence to suggest fluid overload/CHF, patient has no complaints of chest pain at this time. I reviewed all investigations and hematologic indices are negative for leukocytosis or anemia and there is no thrombocytopenia. Chemistry indices demonstrate a chronically stable renal dysfunction otherwise no electrolyte or liver enzyme derangements. BNP is noted to be slightly elevated and patient provided with 40 mg of oral Lasix and otherwise no chest x-ray or clinical findings to suggest significant fluid overload. Chest x-ray does not demonstrate infiltrate or venous congestion. Troponin is chronically detectable but not elevated. EKG does not demonstrate any acute findings. My interpretation is that patient is suffering from anxiety and panic secondary to current infection, patient does have additional resources as her is at home currently packing, will reach out to family for collateral information and attempts to arrange for additional support. We did discuss the case with case management who does not feel that this patient would be able to qualify for any snf placement. The nursing staff has reached out to the family members who states that they are unable to assist. Patient is otherwise discharged with recommendations to follow-up with primary care provider by calling the office 1st thing in the morning. Differential Diagnosis Differential Diagnoses: The differential diagnosis associated with the presentation includes Please see the discussion above Admission/Observation Consideration of admission/observation: Escalation of care including admission/observation considered Please see the discussion above Lab Data [facility] Lab Attestation statement: I reviewed the patient's lab results. Please see the discussion above 10/27/23 19:27 10/27/23 19:27 Labs: Lab Results 10/27/23 Range/Units 19:27 WBC 9.2 (4.8-10.8) X10*3/uL RBC 5.19 (4.20-5.50) X10*6/uL Hgb 13.8 (12.0-16.0) g/dl Hct 43.5 (37.0-47.0) % MCV 83.8 (80.0-98.0) fL MCH 26.6 L (27.0-33.0) pg MCHC 31.7 (31.0-35.0) g/dl RDW 14.1 (11.0-16.0) % Plt Count 257 D (160-400) X10*3/uL MPV 10.7 (9.4-12.3) fL Immature Gran % (Auto) 0.2 (0.0-0.4) % Neut % (Auto) 73.6 H (45-73) % Lymph % (Auto) 17.3 L (20-40) % [place] % (Auto) 5.7 (2-11) % Eos % (Auto) 2.2 (0-4) % Baso % (Auto) 1.0 (0-2) % Lymph # (Auto) 1.6 (1.2-4.9) X10*3/uL [place] # (Auto) 0.5 (0.1-1.2) X10*3/uL Eos # (Auto) 0.2 (0.0-0.4) X10*3/uL Baso # (Auto) 0.1 (0.0-0.2) X10*3/uL Abs Immat Gran (auto) 0.02 (0.00-0.03) X10*3/uL Absolute Neuts (auto) 6.8 (2.0-8.3) x10*3/uL Absolute Nucleated RBC 0.000 (0.0-0.012) X10*3/uL Nucleated RBC % (auto) 0.0 (0.0-0.2) /100WBC Sodium 140 (135-145) mmol/L Potassium 4.3 (3.3-5.1) mmol/L Chloride 101 (96-108) mmol/L Carbon Dioxide 28 (22-29) mmol/L Anion Gap 15 (12-20) BUN 36 H (9-16) mg/dL Creatinine 1.54 H (0.5-1.4) mg/dL Estim Creat Clear Calc 44.0 Estimated GFR 34 Random Glucose 128 H (60-115) mg/dL Calcium 10.0 D (8.4-10.2) mg/dL Total Bilirubin 0.5 (0.0-1.0) mg/dL Direct Bilirubin 0.2 (0.0-0.5) mg/dL AST 29 (5-31) U/L ALT 25 (0-31) U/L Alkaline Phosphatase 59 (39-117) U/L Troponin I High Sens 9.4 D (<3.5-17.0) ng/L B-Natriuretic Peptide 145 H (<100) pg/mL Total Protein 8.6 H (6.5-8.0) g/dL Albumin 4.3 (3.5-5.0) g/dL Independent Interpretation I performed an independent interpretation of an: EKG Interpretation: Normal sinus rhythm, HR-63, no STEMI, LA/QRS/QTC is within normal limits. Radiology Impression Discussion of test interpretation with radiology: I have reviewed the radiologist's reading. Radiologist Impression: Please see the discussion above External Record Review External record reviewed: Outpatient record, Prior outpatient labs and Prior outpatient radiology Chronic Conditions Patient?s care impacted by: Diabetes and Hypertension Critical Care Time Critical Care Time Critical Care Time: Yes Total Critical Care Time: 60 Attestation: I personally attest to this time spent taking care of the patient. Discharge Plan Discharge Clinical Impression: Anxiety Patient Disposition: Home, Self-Care Instructions: Anxiety (ED) Additional Instructions: 1. Resume all home medications as prescribed. 2. Please reach out to the resources provided to you at the time of discharge. Also recommend reaching out to your primary care doctor by calling the office 1st thing in the morning. Return to the ER for any worsening symptoms. Prescriptions: No Action (DME) FreeStyle Lite Strips Strip See Rx Instructions .ROUTE .MEDSUPPLY Qty: 10 Rx Instructions: As directed rosuvastatin 40 mg tablet 40 mg PO BEDTIME Qty: 90 1RF (DME) lancets [TRUEplus Lancets] 33 gauge misc See Rx Instructions .ROUTE .MEDSUPPLY Qty: 350 3RF Rx Instructions: 4 times a day ketotifen fumarate 0.025 % (0.035 %) drops 1 drp ophthalmic (eye) BID PRN (Reason: Allergy Symptoms) aspirin 81 mg tablet,delayed release (DR/EC) 81 mg PO DAILY amlodipine 10 mg tablet 10 mg PO DAILY@1200 diphenhydramine HCl [Banophen] 25 mg capsule 25 mg PO Q6H PRN (Reason: itch or allergies) hydroxyzine HCl 10 mg tablet 10 mg PO DAILY PRN (Reason: anxiety) loratadine 10 mg tablet 10 mg PO DAILY PRN (Reason: Allergic Symptoms) escitalopram oxalate 10 mg tablet 10 mg PO DAILY@1200 cholecalciferol (vitamin D3) 25 mcg (1,000 unit) tablet 25 mcg PO DAILY@1200 spironolactone 25 mg Tablet 25 mg PO DAILY Qty: 30 0RF Protocol: Hold for SBP< HOLD for SBP < : 90 metoprolol succinate 100 mg Tablet Extended Release 24 Hr 100 mg PO BEDTIME Qty: 30 0RF Protocol: Hold for SBP/HR < HOLD for SBP < : 90 HOLD for HR < : 60 Cerovite Senior 0.4 mg-300 mcg- 250 mcg tablet 1 tab PO DAILY@1200 furosemide 40 mg tablet 40 mg PO BID@0900,1200 levothyroxine 175 mcg tablet 175 mcg PO DAILY@0600 ibuprofen 200 mg Tablet 400 mg PO Q8H PRN (Reason: Pain) isosorbide mononitrate 30 mg tablet extended release 24 hr 30 mg PO DAILY@1200 Protocol: Hold for SBP< HOLD for SBP < : 90 ezetimibe 10 mg tablet 10 mg PO DAILY@1200 Humalog KwikPen Insulin 200 unit/mL (3 mL) insulin pen 1 sliding scale dose subcut TIDAC Toujeo Max U-300 SoloStar 300 unit/mL (3 mL) insulin pen 45 unit subcut BEDTIME Trulicity 3 mg/0.5 mL pen injector 3 mg subcut CARDENAS@0900 cefuroxime axetil 500 mg tablet 500 mg PO BID Qty: 6 0RF benzonatate 100 mg capsule 100 mg PO BID PRN (Reason: cough) Qty: 20 0RF albuterol sulfate 90 mcg/actuation aerosol powdr breath activated 2 inh inhalation Q4-6H PRN (Reason: shortness of breath or wheezing) Qty: 1 0RF melatonin 5 mg tablet 10 mg PO BEDTIME PRN (Reason: Sleep) (DME) FreeStyle Phil 2 [place] Misc See Rx Instructions .ROUTE .MEDSUPPLY Qty: 1 0RF Rx Instructions: As directed (DME) FreeDhir Diamonds Phil 2 Sensor Kit See Rx Instructions .ROUTE .MEDSUPPLY Qty: 2 11RF Rx Instructions: As directed every 2 weeks Jardiance 10 mg tablet 10 mg PO DAILY Referrals: Fatmata Sky MD [Primary Care Provider] -
[2023-10-27 22:10] VITALS: BP 106/48; PULSE 74; RESP 16; O2SAT 96
--- NOTE | 2023-10-27 23:10 | MHC.CM.ED ---
CM spoke with primary nurse and provider about this patient. Pt wants STR or LTC. Pt is A&Ox3. Has no PT skill. No reason for STR. CM suggested that patient be referred to CARE team for further assessment. Pt is independent at home. Drives. Uses a cane. Has no mental disability. A&Ox4. Pt upset about eviction, but doubt patient is a candidate for LTC at this time. CM will follow for discharged planning if referred. List of shelters given to primary nurse at request of provider.
--- NOTE | 2023-10-27 23:12 | PC.NURSE ---
attempted to contact pt sister as well as pt dtr- no answer on either line. reached pt statedd that eviction proceedings have been going on since 07/2022. sts last thursday there was a court date to push off eviction. however due to pt covid (+) sts he was told no tto go to court. Sta that they are to be out of the property 10/28/2023. Pt spouse inquired as to whether or not we were going to keep pt. Advised that at this point we have no medical reason to keep pt . spouse sts that she cannot come home with the apartment like this (spouse is packing apartment). Spouse stated he has a hotel reserved for the next 7 days. but is unsure what will happen beyond that. advised plan is to DC with resources for homeless shelters. will update MD welch.
--- NOTE | 2023-10-27 23:22 | PC.NURSE ---
Dr. Brown notified of asymptomatic low bp; states to continue with administration of po lasix. pt axox4. resp even and unlabored. nad.
[2023-10-27] MEDS: Furosemide 40 MG TABLET PO (23:32)
--- NOTE | 2023-10-27 23:34 | PC.NURSE ---
pt states will call her for a ride home. pt provided with resources for shelters upon d/c. pt verbalizes understanding discharge and denies further questions/concerns. pt appearing tearful but in agreement.
== END 2023-10-27 23:53 | disposition home or self-care (01) ==
PROVIDERS: Physician Assistant; Emergency Provider Student in an Organized Health Care Education/Training Program; PCP Student in an Organized Health Care Education/Training Program
DX: F41.9 Anxiety disorder, unspecified (principal); R06.02 Shortness of breath
CPT/HCPCS: 36415; 71045; 80048; 80076; 83880; 84484; 85025; 93005; 99283; 99284

== ENCOUNTER → 2023-10-27 19:14 | Outpatient (BNV) | payer MEDICARE, SELFPAY | PROVIDERS: Emergency Provider Student in an Organized Health Care Education/Training Program; PCP Student in an Organized Health Care Education/Training Program; Visit Provider Internal Medicine Cardiovascular Disease | DX: I49.3 Ventricular premature depolarization (principal) | CPT/HCPCS: 93010 ==

== ENCOUNTER 2023-11-25 20:17 | Inpatient (IN) | payer MEDICARE, MEDICAID, SELFPAY ==
--- NOTE | 2023-11-25 20:22 | ED.URI ---
HPI - URI/Sore Throat General Chief Complaint: Headache Stated Complaint: headache and body aches, vomiting, and congestion Time Seen by Provider: 11/25/23 22:19 Source: patient Mode of arrival: ambulatory Limitations: no limitations History of Present Illness HPI Narrative: Patient homeless for last 2 nights sleeping in her car for last 2 days has not taken her 68 units of Lantus insulin sliding scale as she was not feeling well and not eating when patient came she was soiled in the urine unkept condition feeling exhausted no fever no chills your upper respiratory symptoms blood sugar was elevated to 648 Related Data Home Medications Medication Instructions Recorded Confirmed amlodipine 10 mg tablet 10 mg PO DAILY@1200 08/06/20 11/26/23 aspirin 81 mg tablet,delayed 81 mg PO DAILY 08/06/20 11/26/23 release cholecalciferol (vitamin D3) 25 25 mcg PO DAILY@1200 08/06/20 09/17/23 mcg (1,000 unit) tablet diphenhydramine HCl 25 mg capsule 25 mg PO Q6H PRN itch or allergies 08/06/20 11/26/23 (Banophen) escitalopram oxalate 10 mg tablet 10 mg PO DAILY@1200 08/06/20 09/17/23 hydroxyzine HCl 10 mg tablet 10 mg PO DAILY PRN anxiety 08/06/20 09/17/23 ketotifen fumarate 0.025 % (0.035 1 drp ophthalmic (eye) BID PRN 08/06/20 09/17/23 %) eye drops Allergy Symptoms loratadine 10 mg tablet 10 mg PO DAILY PRN Allergic 08/06/20 09/17/23 Symptoms blood sugar diagnostic (Brian #10 ea 10/01/20 09/17/23 Lite Strips) melatonin 5 mg tablet 10 mg PO BEDTIME PRN Sleep 10/22/21 09/17/23 dulaglutide 3 mg/0.5 mL 3 mg subcut CARDENAS@0900 05/21/23 09/17/23 subcutaneous pen injector (Trulicdaniella) ezetimibe 10 mg tablet 10 mg PO DAILY@1200 05/21/23 09/17/23 furosemide 40 mg tablet 40 mg PO BID@0900,1200 05/21/23 09/17/23 ibuprofen 200 mg tablet 400 mg PO Q8H PRN Pain 05/21/23 09/17/23 insulin glargine U-300 conc 300 45 unit subcut BEDTIME 05/21/23 09/17/23 unit/mL (3 mL) subcutaneous pen (Toujeo Max U-300 SoloStar) insulin lispro 200 unit/mL (3 mL) 1 sliding scale dose subcut TIDAC 05/21/23 09/17/23 subcutaneous pen (Humalog KwikPen U-200 Insulin) isosorbide mononitrate 30 mg 30 mg PO DAILY@1200 05/21/23 09/17/23 tablet,extended release 24 hr levothyroxine 175 mcg tablet 175 mcg PO DAILY@0600 05/21/23 09/17/23 bvjeocwy-wpl-nfoff acid 0.4 1 tab PO DAILY@1200 05/21/23 09/17/23 mg-lycopene 300 mcg-lutein 250 mcg tablet (Cerovite Senior) empagliflozin 10 mg tablet 10 mg PO DAILY 09/17/23 09/17/23 (Jardiance) empagliflozin 25 mg tablet 25 mg QA 11/26/23 11/26/23 (Jardiance) escitalopram oxalate 10 mg tablet 10 mg PO DAILY 11/26/23 11/26/23 isosorbide mononitrate 30 mg 30 mg PO QAM 11/26/23 11/26/23 tablet,extended release 24 hr isosorbide mononitrate 30 mg 30 mg PO QAM 11/26/23 11/26/23 tablet,extended release 24 hr isosorbide mononitrate 30 mg 30 mg PO QAM 11/26/23 11/26/23 tablet,extended release 24 hr levothyroxine 175 mcg tablet 175 mcg QAM 11/26/23 11/26/23 Previous Rx's Medication Instructions Recorded metoprolol succinate 100 mg 100 mg PO BEDTIME #30 tabs 08/16/20 tablet,extended release 24 hr spironolactone 25 mg tablet 25 mg PO DAILY #30 tabs 08/16/20 rosuvastatin 40 mg tablet 40 mg PO BEDTIME #90 tabs 08/21/21 TRUEplus Lancets 33 gauge (lancets) #350 ea 01/09/22 flash glucose scanning reader #1 ea 01/29/22 (FreeStyle Phil 2 [place]) flash glucose sensor (FreeStyle #2 ea 01/29/22 Phil 2 Sensor kit) cefuroxime axetil 500 mg tablet 500 mg PO BID #6 tabs 05/25/23 albuterol sulfate 90 mcg/actuation 2 inh inhalation Q4-6H PRN 10/13/23 breath activated powder inhaler shortness of breath or wheezing #1 ea benzonatate 100 mg capsule 100 mg PO BID PRN cough #20 caps 10/13/23 Allergies Allergy/AdvReac Type Severity Reaction Status Date / Time Seasonal Allergies Allergy Itchy Eyes Verified 11/25/23 20:23 lisinopril [LISINOPRIL] AdvReac Unknown ITCHY EYES Verified 11/25/23 20:22 Review of Systems Review of Systems: Yes all other systems are reviewed and are negative [facility] Past Medical History Medical History Aortic stenosis COVID-19 vaccine series completed Type 2 diabetes mellitus with polyneuropathy Diabetes type 2, uncontrolled CKD (chronic kidney disease) (HFpEF) heart failure with preserved ejection fraction Hypokalemia Hypomagnesemia Acute on chronic kidney failure Acute on chronic heart failure with preserved ejection fraction (HFpEF) Anasarca Congestive heart failure Kidney disease Syncope CHF (congestive heart failure) Diabetes mellitus with hyperglycemia Dyslipidemia, goal LDL below 100 Essential hypertension Type 2 diabetes mellitus with diabetic nephropathy Other specified hypothyroidism Autoimmune thyroiditis Abnormal dexamethasone suppression test Morbid obesity due to excess calories BMI 45.0-49.9, adult Surgical History History of History of removal of calculus of renal pelvis through percutaneous nephrostomy Family History Family History Family/Other Diabetes Mother History of high blood pressure Father History of high blood pressure Maternal Grandmother History of high blood pressure Social History Social History Household Members: Family Housing: Apartment Are you a primary care transitions nurse to a significant other at home: No Do you presently have visiting nurse or other home services: Yes Alcohol intake: current Alcohol intake frequency: a few times a week Alcohol type: wine Comment: uses cane occasionally Patient Tobacco Use Status: Never used Tobacco Smoked in Last 30 Days: No Use of substances other than those prescribed or required for medical reasons: No Advance Directives: No Advance Directives Information Provided: No Patient : No service: No Current occupational status: disabled Physical Exam Vital Signs: Vital Signs: Last Vital Signs Temp 98.1 F 11/25/23 20:23 Pulse 75 11/25/23 20:23 Resp 18 11/25/23 20:23 BP 146/61 H 11/25/23 20:23 Pulse Ox 95 11/25/23 20:23 O2 Del Method Room Air 11/25/23 20:23 BMI result Body Mass Index 43.9 Appearance: Alert. Oriented X3. No acute distress. Ob Eyes: PERRLA, No Nystagmus ENT: Pharynx normal. Oral Mucosa dry Neck: Normal inspection. Neck supple. CVS: Normal heart rate and rhythm. Pulses normal. Respiratory: No respiratory distress. Equal air entry bilateral, no wheezing/rales/rhonchi Abdomen: Soft and nontender. Bowel sounds are present, no mass palpable, no CVA tenderness Skin: Skin warm and dry. Normal skin color. Normal skin turgor. Extremities: Nonpitting lower extremity edema+ No calf tenderness Neuro: Oriented X 3. No motor deficit. No sensory deficit.No cerebellar signs , cranial nerves II-XII intact Course Course Course Narrative: RMSusie: 63 year-old F w/ PMHx HTN, CKD, , DM, HLD, presenting to the ED c/o GE, myalgias, congestion, LE swelling/pain/soreness due to living in her car since Thursday. States she was evicted and there are no shelters. Requesting shower. Also reports nausea after eating egg salad Patient in wheelchair Labs, Viral testing ordered Full HPI, ROS and PE to be performed by primary ED provider. Medications Administered Discontinued Medications Generic Name Dose Route Start Last Admin Trade Name Freq PRN Reason Stop Dose Admin Sodium Chloride 1,000 mls @ 999 mls/hr 11/25/23 22:22 11/26/23 01:07 Ns IV 11/25/23 23:22 Infused .Q1H1M ONE Infusion Insulin Glargine 60 unit 11/25/23 22:36 11/25/23 23:02 Insulin Glargine,Hum.Rec.Anlog 100 Unit/Ml 10 Ml Vial SUBCUT 11/25/23 22:37 60 unit ONCE ONE Administration Insulin Human Lispro 14 unit 11/25/23 22:22 11/25/23 23:02 Insulin Lispro 100 Unit/Ml 3 Ml Vial SUBCUT 11/25/23 22:23 14 unit ONCE ONE Administration Insulin Human Lispro 14 unit 11/25/23 23:37 11/25/23 23:44 Insulin Lispro 100 Unit/Ml 3 Ml Vial SUBCUT 11/25/23 23:38 14 unit ONCE ONE Administration Medical Decision Making Medical Decision Making [place] Narrative: Patient nonketotic hyperosmolar hyperglycemia secondary to noncompliance of insulin patient has been homeless not eating or drinking much Patient also have acute renal insufficiency with creatinine increased from 1.5 last month and today was 2.29. Will give IV hydration insulin plan for admission Differential Diagnosis Differential Diagnoses: The differential diagnosis associated with the presentation includes Uncontrolled diabetes, hyperglycemia/UTI Consult Healthcare Provider Management of the patient was discussed with: Hospitalist Lab Data MDM Lab Attestation statement: I reviewed the patient's lab results. 11/25/23 21:01 11/25/23 21:01 Labs: Lab Results 11/25/23 11/25/23 11/25/23 Range/Units 20:58 21:01 22:38 WBC 8.2 (4.8-10.8) X10*3/uL RBC 5.32 (4.20-5.50) X10*6/uL Hgb 14.3 (12.0-16.0) g/dl Hct 42.9 (37.0-47.0) % MCV 80.6 (80.0-98.0) fL MCH 26.9 L (27.0-33.0) pg MCHC 33.3 (31.0-35.0) g/dl RDW 13.8 (11.0-16.0) % Plt Count 247 (160-400) X10*3/uL MPV 10.7 (9.4-12.3) fL Immature Gran % (Auto) 0.2 (0.0-0.4) % Neut % (Auto) 74.2 H (45-73) % Lymph % (Auto) 16.9 L (20-40) % Tompkins % (Auto) 6.2 (2-11) % Eos % (Auto) 1.5 (0-4) % Baso % (Auto) 1.0 (0-2) % Lymph # (Auto) 1.4 (1.2-4.9) X10*3/uL [place]kins # (Auto) 0.5 (0.1-1.2) X10*3/uL Eos # (Auto) 0.1 (0.0-0.4) X10*3/uL Baso # (Auto) 0.1 (0.0-0.2) X10*3/uL Abs Immat Gran (auto) 0.02 (0.00-0.03) X10*3/uL Absolute Neuts (auto) 6.1 (2.0-8.3) x10*3/uL Absolute Nucleated RBC 0.000 (0.0-0.012) X10*3/uL Nucleated RBC % (auto) 0.0 (0.0-0.2) /100WBC Sodium 132 L (135-145) mmol/L Potassium 4.1 (3.3-5.1) mmol/L Chloride 94 L (96-108) mmol/L Carbon Dioxide 22 (22-29) mmol/L Anion Gap 20 (12-20) BUN 52 H (9-16) mg/dL Creatinine 2.29 H (0.5-1.4) mg/dL Estim Creat Clear Calc 29.2 Estimated GFR 22 POC Glucose 585 H* (60-115) mg/dL Random Glucose 648 H* (60-115) mg/dL Calcium 12.0 H D (8.4-10.2) mg/dL Magnesium 2.3 (1.6-2.6) mg/dL Total Bilirubin 0.5 (0.0-1.0) mg/dL Direct Bilirubin 0.2 (0.0-0.5) mg/dL AST 17 (5-31) U/L ALT 21 (0-31) U/L Alkaline Phosphatase 73 (39-117) U/L Total Creatine Kinase 274 H (26-140) U/L B-Natriuretic Peptide 39 (<100) pg/mL Total Protein 8.5 H (6.5-8.0) g/dL Albumin 4.2 (3.5-5.0) g/dL Influenza Type A (PCR) NEGATIVE (Negative) Influenza Type B (PCR) NEGATIVE (Negative) RSV RNA Qual (PCR) NEGATIVE (Negative) SARS-CoV-2 RNA (RT-PCR) NEGATIVE (Negative) 11/25/23 Range/Units 23:36 WBC (4.8-10.8) X10*3/uL RBC (4.20-5.50) X10*6/uL Hgb (12.0-16.0) g/dl Hct (37.0-47.0) % MCV (80.0-98.0) fL MCH (27.0-33.0) pg MCHC (31.0-35.0) g/dl RDW (11.0-16.0) % Plt Count (160-400) X10*3/uL MPV (9.4-12.3) fL Immature Gran % (Auto) (0.0-0.4) % Neut % (Auto) (45-73) % Lymph % (Auto) (20-40) % Tompkins % (Auto) (2-11) % Eos % (Auto) (0-4) % Baso % (Auto) (0-2) % Lymph # (Auto) (1.2-4.9) X10*3/uL [place] # (Auto) (0.1-1.2) X10*3/uL Eos # (Auto) (0.0-0.4) X10*3/uL Baso # (Auto) (0.0-0.2) X10*3/uL Abs Immat Gran (auto) (0.00-0.03) X10*3/uL Absolute Neuts (auto) (2.0-8.3) x10*3/uL Absolute Nucleated RBC (0.0-0.012) X10*3/uL Nucleated RBC % (auto) (0.0-0.2) /100WBC Sodium (135-145) mmol/L Potassium (3.3-5.1) mmol/L Chloride (96-108) mmol/L Carbon Dioxide (22-29) mmol/L Anion Gap (12-20) BUN (9-16) mg/dL Creatinine (0.5-1.4) mg/dL Estim Creat Clear Calc Estimated GFR POC Glucose 539 H* (60-115) mg/dL Random Glucose (60-115) mg/dL Calcium (8.4-10.2) mg/dL Magnesium (1.6-2.6) mg/dL Total Bilirubin (0.0-1.0) mg/dL Direct Bilirubin (0.0-0.5) mg/dL AST (5-31) U/L ALT (0-31) U/L Alkaline Phosphatase (39-117) U/L Total Creatine Kinase (26-140) U/L B-Natriuretic Peptide (<100) pg/mL Total Protein (6.5-8.0) g/dL Albumin (3.5-5.0) g/dL Influenza Type A (PCR) (Negative) Influenza Type B (PCR) (Negative) RSV RNA Qual (PCR) (Negative) SARS-CoV-2 RNA (RT-PCR) (Negative) Critical Care Time Critical Care Time Critical Care Time: Yes Total Critical Care Time: 55 Attestation: The patient was critically ill with a high probability of imminent or life threatening deterioration. I spent greater than 60???minutes of discontinuous time evaluating the patient,delivering critical care at the bedside, discussing and evaluating pertinent data with consultants. Critical care time does not include time spent performing separately billable procedures or teaching. Total time spent performing critical care was ?55??minutes. Discharge Plan Discharge Clinical Impression: Hyperglycemia due to type 2 diabetes mellitus Patient Disposition: Admitted As Inpatient
[2023-11-25 20:23] VITALS: BP 146/61; PULSE 75; RESP 18; TEMP 36.7; O2SAT 95; BMI 43.9
--- NOTE | 2023-11-25 21:04 | MHC.EDTECH ---
PATIENT RSV/COVID SWAB COLLECTED AND BLOOD DRAWN ALL SENT TO LAB .
[2023-11-25 21:06] LABS: MANUAL DIFF FLAG NO
[2023-11-25 21:07] LABS: Basophils Absolute Auto 0.1 X10*3/uL (0.0-0.2); Eosinophils Absolute Auto 0.1 X10*3/uL (0.0-0.4); Eosinophils Percent Auto 1.5 % (0-4); Hematocrit 42.9 % (37.0-47.0); Hemoglobin 14.3 g/dl (12.0-16.0); Imm Gran Abs Auto 0.02 X10*3/uL (0.00-0.03); Imm Gran Pct Auto 0.2 % (0.0-0.4); Lymphocytes Absolute Auto 1.4 X10*3/uL (1.2-4.9); Lymphocytes Percent Auto 16.9 % (20-40); Mean Corpuscular HGB Conc 33.3 g/dl (31.0-35.0); Mean Corpuscular Hemoglobin 26.9 pg (27.0-33.0); Mean Corpuscular Volume 80.6 fL (80.0-98.0); Mean Platelet Volume 10.7 fL (9.4-12.3); Monocytes Absolute Auto 0.5 X10*3/uL (0.1-1.2); Monocytes Percent Auto 6.2 % (2-11); Neutrophils Absolute Auto 6.1 x10*3/uL (2.0-8.3); Neutrophils Percent Auto 74.2 % (45-73); Platelet Count 247 X10*3/uL (160-400); Red Blood Count 5.32 X10*6/uL (4.20-5.50); Red Cell Distribution Width 13.8 % (11.0-16.0); White Blood Count 8.2 X10*3/uL (4.8-10.8)
[2023-11-25 21:35] LABS: B Type Natriuretic Peptide 39 pg/mL (<100)
[2023-11-25 21:37] LABS: Alanine Aminotransferase 21 U/L (0-31); Albumin Level 4.2 g/dL (3.5-5.0); Alkaline Phosphatase 73 U/L (39-117); Anion Gap 20 (12-20); Aspartate Amino Transferase 17 U/L (5-31); Bilirubin Direct 0.2 mg/dL (0.0-0.5); Bilirubin Total 0.5 mg/dL (0.0-1.0); Blood Urea Nitrogen 52 mg/dL (9-16); Carbon Dioxide 22 mmol/L (22-29); Chloride 94 mmol/L (96-108); Creatinine Clr Calc Pharmacy 29.2; Estimated Glomerular Filt Rate 22; Glucose Random 648 mg/dL (60-115); Magnesium 2.3 mg/dL (1.6-2.6); Potassium 4.1 mmol/L (3.3-5.1); Sodium 132 mmol/L (135-145); Total Protein 8.5 g/dL (6.5-8.0)
[2023-11-25 21:43] LABS: Influenza A PCR NEGATIVE (Negative); Influenza B PCR NEGATIVE (Negative); Resp Syncy Virus RNA Qual PCR NEGATIVE (Negative); SARS COV2 PCR INHOUSE NEGATIVE (Negative)
--- NOTE | 2023-11-25 22:09 | PC.NURSE ---
pt states she is homeless and lives in the car. pt is unkept, brief totally saturated with urine with odor. pt comes with her .
[2023-11-25 22:42] LABS: Glucose, Whole Blood 585 mg/dL (60-115)
[2023-11-25] MEDS: 0.9 % Sodium Chloride 1,000 ML 999 ML IV (22:49)
[2023-11-25] MEDS: Insulin Lispro 100 UNIT/ML 3 ML VIAL 14 UNIT SUBCUT ×2 (23:02→23:44)
[2023-11-25] MEDS: Insulin Glargine,Hum.rec.anlog 100 UNIT/ML 10 ML VIAL 60 UNIT SUBCUT (23:02)
[2023-11-25 23:41] LABS: Glucose, Whole Blood 539 mg/dL (60-115)
[2023-11-26] VITALS (7 sets, daily range): BP systolic 107–142; BP diastolic 44–72; PULSE 58–70; RESP 18–20; TEMP 36.1–36.8; O2SAT 91–98; BMI 43.9
[2023-11-26] MEDS: 0.9 % Sodium Chloride 1,000 ML 999 ML IV (01:30)
[2023-11-26 02:10] LABS: Appearance Urine Clear; Color Urine Yellow; Glucose Urine UA >=1000 mg/dL (Negative); Leukocyte Esterase Urine Negative (Negative); Nitrite Urine Negative (Negative); Specific Gravity - Urine 1.025 (1.005-1.025); UMIC TRIGGER UACC YES; Urine Blood Negative (Negative); Urine Ketones Negative (Negative); Urine Protein Negative (Neg-Trace)
[2023-11-26 02:12] LABS: Bacteria Urine None Seen (None Seen); Hyaline Casts Urine 0-2 /LPF (0-2); RBC Urine 0-2 /HPF (0-2); Squamous Epithelial Cell Urine 0-2 /HPF (0-2); WBC Urine 0-5 /HPF (0-5)
--- NOTE | 2023-11-26 02:35 | PC.NURSE ---
Addendum entered by Nalini Hyman RN 11/26/23 03:05: Clarification given, POC to be rechecked one hour after 12u Lantus dose per Dr. Hardeep Jenkins (03:35) Original Note: Dr. Hardeep Jenkins notified POC 244, hold regular insulin IVP and only give lantus now. Recheck POC in 2 hours.
[2023-11-26] MEDS: Insulin Glargine,Hum.rec.anlog 100 UNIT/ML 10 ML VIAL 12 UNIT SUBCUT (02:39)
[2023-11-26] MEDS: 0.9 % Sodium Chloride 1,000 ML 125 ML IVCONT ×3 (02:40→16:39)
[2023-11-26 02:53] LABS: Glucose, Whole Blood 244 mg/dL (60-115)
[2023-11-26] MEDS: Calcium Carbonate 750 MG TAB.CHEW 1500 MG PO (03:15)
--- NOTE | 2023-11-26 03:33 | PM.IMHP ---
History of Present Illness Date of Service: 11/26/23 Attending physician on admission: Mahendra Jenkins Chief Complaint: Elevated blood glucose Kati Szymanski is a very pleasant 63 years old woman with past medical history significant for type 2 diabetes on insulin, essential hypertension, hypothyroidism, HFpEF, aortic stenosis and hyperlipidemia presents to the emergency department complaining of body aches (more prominent in her legs), headache and nausea after eating an egg salad. She denied any headache, sore throat, shortness on breath, chest pain, vomiting, abdominal pain or diarrhea. She does complain of reflux. She has no fevers chills reported. Patient has been living in her car since yesterday as she was evicted. She denied alcohol abuse, illicit drug use or tobacco smoking. In the ED, she was found to have normal vital signs. Blood workup showed no leukocytosis. Her blood glucose was initially 646 and elevated calcium. Her creatinine is 2.29 (baseline is between 1.5-1.8). There is no hyperkalemia or acidosis. Anion gap is normal. Total CK slightly elevated. CXR is negative. Viral testing for influenza and COVID-19 is negative. ED tx: Glargine 60 units subcut, NS 2 L bolus, lispro 28 units (total) subcut. Review of Systems Review of Systems: All 12 systems were reviewed and normal except as noted in HPI. [facility] Medical History (Updated 11/26/23 @ 04:15 by Mahendra Jenkins MD) Hypothyroidism Aortic stenosis COVID-19 vaccine series completed Type 2 diabetes mellitus with polyneuropathy Diabetes type 2, uncontrolled CKD (chronic kidney disease) (HFpEF) heart failure with preserved ejection fraction Hypokalemia Hypomagnesemia Acute on chronic heart failure with preserved ejection fraction (HFpEF) Anasarca Congestive heart failure Kidney disease Syncope CHF (congestive heart failure) Diabetes mellitus with hyperglycemia Dyslipidemia, goal LDL below 100 Essential hypertension Type 2 diabetes mellitus with diabetic nephropathy Other specified hypothyroidism Autoimmune thyroiditis Abnormal dexamethasone suppression test Morbid obesity due to excess calories BMI 45.0-49.9, adult Family History Family/Other Diabetes Mother History of high blood pressure Father History of high blood pressure Maternal Grandmother History of high blood pressure Surgical History History of History of removal of calculus of renal pelvis through percutaneous nephrostomy Social History Household Members: Family Housing: Apartment Are you a primary cna caregiver to a significant other at home: No Do you presently have visiting nurse or other home services: Yes Alcohol intake: current Alcohol intake frequency: a few times a week Alcohol type: wine Comment: uses cane occasionally Patient Tobacco Use Status: Never used Tobacco Smoked in Last 30 Days: No Use of substances other than those prescribed or required for medical reasons: No Advance Directives: No Advance Directives Information Provided: No Patient : No service: No Current occupational status: disabled Meds Allergies Allergy/AdvReac Type Severity Reaction Status Date / Time Seasonal Allergies Allergy Itchy Eyes Verified 11/25/23 20:23 lisinopril [LISINOPRIL] AdvReac Unknown ITCHY EYES Verified 11/25/23 20:22 Active Medications: Current Medications Acetaminophen (Acetaminophen 325 Mg Tablet) 975 mg PO Q6H PRN PRN Reason: Pain, Mild (Pain Scale 1-3) Amlodipine Besylate (Amlodipine Besylate 10 Mg Tablet) 10 mg PO DAILY@1200 [facility]; Protocol Aspirin (Aspirin Enteric Coated 81 Mg Tablet.Dr) 81 mg PO DAILY [facility] Empagliflozin (Empagliflozin 25 Mg Tablet) 25 mg PO DAILY [facility] Escitalopram Oxalate (Escitalopram Oxalate 10 Mg Tablet) 10 mg PO DAILY [facility] Heparin Sodium (Porcine) (Heparin Sodium,Porcine 5,000 Unit/Ml Vial) 5,000 unit SUBCUT Q12H [facility] Hydroxyzine HCl (Hydroxyzine Hcl 25 Mg Tablet) 25 mg PO Q6H PRN PRN Reason: Anxiety Sodium Chloride (Ns) 1,000 mls @ 125 mls/hr IVCONT .Q8H [facility] Last Admin: 11/26/23 02:40 Dose: 125 mls/hr Isosorbide Mononitrate (Isosorbide Mononitrate 30 Mg Tab.Er.24h) 30 mg PO DAILY [facility]; Protocol Levothyroxine Sodium (Levothyroxine Sodium 175 Mcg Tablet) 175 mcg PO DAILY@0630 [facility] Metoprolol Succinate (Metoprolol Succinate Er 100 Mg Tab.Er.24h) 100 mg PO DAILY [facility]; Protocol Sodium Chloride (0.9 % Sodium Chloride Flush 3 Ml Syringe) 3 ml IVFLUSH QSKSFT [facility] Home Medications Medication Instructions Recorded Confirmed Last Taken Type amlodipine 10 mg tablet 10 mg PO DAILY@1200 08/06/20 11/26/23 05/20/23 History aspirin 81 mg tablet,delayed 81 mg PO DAILY 08/06/20 11/26/23 05/20/23 History release cholecalciferol (vitamin D3) 25 25 mcg PO DAILY@1200 08/06/20 09/17/23 05/20/23 History mcg (1,000 unit) tablet diphenhydramine HCl 25 mg capsule 25 mg PO Q6H PRN itch or allergies 08/06/20 11/26/23 08/05/20 History (Banophen) escitalopram oxalate 10 mg tablet 10 mg PO DAILY@1200 08/06/20 09/17/23 05/20/23 History hydroxyzine HCl 10 mg tablet 10 mg PO DAILY PRN anxiety 08/06/20 09/17/23 08/05/20 History ketotifen fumarate 0.025 % (0.035 1 drp ophthalmic (eye) BID PRN 08/06/20 09/17/23 08/05/20 History %) eye drops Allergy Symptoms loratadine 10 mg tablet 10 mg PO DAILY PRN Allergic 08/06/20 09/17/23 08/05/20 History Symptoms blood sugar diagnostic (Juddyle #10 ea 10/01/20 09/17/23 05/20/23 History Lite Strips) melatonin 5 mg tablet 10 mg PO BEDTIME PRN Sleep 10/22/21 09/17/23 Unknown History dulaglutide 3 mg/0.5 mL 3 mg subcut CARDENAS@0900 05/21/23 09/17/23 05/10/23 History subcutaneous pen injector (Trulicity) ezetimibe 10 mg tablet 10 mg PO DAILY@1200 05/21/23 09/17/23 05/20/23 History furosemide 40 mg tablet 40 mg PO BID@0900,1200 05/21/23 09/17/23 05/20/23 History ibuprofen 200 mg tablet 400 mg PO Q8H PRN Pain 05/21/23 09/17/23 Unknown History insulin glargine U-300 conc 300 45 unit subcut BEDTIME 05/21/23 09/17/23 05/19/23 History unit/mL (3 mL) subcutaneous pen (Toujeo Max U-300 SoloStar) insulin lispro 200 unit/mL (3 mL) 1 sliding scale dose subcut TIDAC 05/21/23 09/17/23 05/20/23 History subcutaneous pen (Humalog KwikPen U-200 Insulin) isosorbide mononitrate 30 mg 30 mg PO DAILY@1200 05/21/23 09/17/23 05/20/23 History tablet,extended release 24 hr levothyroxine 175 mcg tablet 175 mcg PO DAILY@0600 05/21/23 09/17/23 05/20/23 History fkbcdytv-kwx-upqsc acid 0.4 1 tab PO DAILY@1200 05/21/23 09/17/23 05/20/23 History mg-lycopene 300 mcg-lutein 250 mcg tablet (Cerovite Senior) empagliflozin 10 mg tablet 10 mg PO DAILY 09/17/23 09/17/23 Unknown History (Jardiance) empagliflozin 25 mg tablet 25 mg [facility] 11/26/23 11/26/23 Unknown History (Jardiance) escitalopram oxalate 10 mg tablet 10 mg PO DAILY 11/26/23 11/26/23 Unknown History isosorbide mononitrate 30 mg 30 mg PO [facility] 11/26/23 11/26/23 Unknown History tablet,extended release 24 hr isosorbide mononitrate 30 mg 30 mg PO [facility] 11/26/23 11/26/23 Unknown History tablet,extended release 24 hr isosorbide mononitrate 30 mg 30 mg PO [facility] 11/26/23 11/26/23 Unknown History tablet,extended release 24 hr levothyroxine 175 mcg tablet 175 mcg QA 11/26/23 11/26/23 Unknown History Physical Exam Vital Signs and Narrative: Vital Signs: Last Vital Signs Temp 98.2 F 11/26/23 02:49 Pulse 58 11/26/23 02:49 Resp 18 11/26/23 02:49 BP 107/44 L 11/26/23 02:49 Pulse Ox 91 L 11/26/23 02:49 O2 Del Method Room Air 11/26/23 02:49 BMI result Body Mass Index 43.9 Constitutional - Awake and Alert, No apparent distress. Afebrile. Pleasant. Cooperative. Eyes - PERRL, EOMI. Dry oral mucosa. Heart - S1S2, RRR, No edema Lungs - Normal lung expansion, Normal respiratory effort, No respiratory distress, CTA bilaterally Gastrointestinal - NT / ND; +BS; No rebound or guarding Extremities - no calf tenderness bilaterally, no swelling Musculoskeletal - Normal inspection, normal ROM Skin - Warm/Dry Neurological - Alert & oriented x3. No focal weakness grossly noted. Normal speech. Normal behavior. Psychological - Appropriate affect Results Labs 11/25/23 21:01 11/25/23 21:01 Labs: Laboratory Results - last 24 hr 11/25/23 11/25/23 11/25/23 20:58 21:01 22:38 MCV 80.6 MCH 26.9 L MCHC 33.3 RDW 13.8 Plt Count 247 MPV 10.7 Immature Gran % (Auto) 0.2 Neut % (Auto) 74.2 H Lymph % (Auto) 16.9 L [place] % (Auto) 6.2 Eos % (Auto) 1.5 Baso % (Auto) 1.0 Lymph # (Auto) 1.4 [place] # (Auto) 0.5 Eos # (Auto) 0.1 Baso # (Auto) 0.1 Abs Immat Gran (auto) 0.02 Absolute Neuts (auto) 6.1 Absolute Nucleated RBC 0.000 Nucleated RBC % (auto) 0.0 Anion Gap 20 Estim Creat Clear Calc 29.2 Estimated GFR 22 POC Glucose 585 H* Random Glucose 648 H* Calcium 12.0 H D Magnesium 2.3 Total Bilirubin 0.5 Direct Bilirubin 0.2 AST 17 ALT 21 Alkaline Phosphatase 73 Total Creatine Kinase 274 H B-Natriuretic Peptide 39 Total Protein 8.5 H Albumin 4.2 Urine Color Urine Appearance Urine pH Ur Specific [place] Urine Protein Urine Glucose (UA) Urine Ketones Urine Blood Urine Nitrite Ur Leukocyte Esterase Urine RBC Urine WBC Ur Squamous Epith Cells Urine Bacteria Hyaline Casts Influenza Type A (PCR) NEGATIVE Influenza Type B (PCR) NEGATIVE RSV RNA Qual (PCR) NEGATIVE SARS-CoV-2 RNA (RT-PCR) NEGATIVE 11/25/23 11/26/23 11/26/23 23:36 02:04 02:29 MCV MCH MCHC RDW Plt Count MPV Immature Gran % (Auto) Neut % (Auto) Lymph % (Auto) [place] % (Auto) Eos % (Auto) Baso % (Auto) Lymph # (Auto) [place] # (Auto) Eos # (Auto) Baso # (Auto) Abs Immat Gran (auto) Absolute Neuts (auto) Absolute Nucleated RBC Nucleated RBC % (auto) Anion Gap Estim Creat Clear Calc Estimated GFR POC Glucose 539 H* 244 H Random Glucose Calcium Magnesium Total Bilirubin Direct Bilirubin AST ALT Alkaline Phosphatase Total Creatine Kinase B-Natriuretic Peptide Total Protein Albumin Urine Color Yellow Urine Appearance Clear Urine pH 5.0 Ur Specific [place] 1.025 Urine Protein Negative Urine Glucose (UA) >=1000 H Urine Ketones Negative Urine Blood Negative Urine Nitrite Negative Ur Leukocyte Esterase Negative Urine RBC 0-2 Urine WBC 0-5 Ur Squamous Epith Cells 0-2 Urine Bacteria None Seen Hyaline Casts 0-2 Influenza Type A (PCR) Influenza Type B (PCR) RSV RNA Qual (PCR) SARS-CoV-2 RNA (RT-PCR) Assessment and Plan (1) Hyperglycemia due to type 2 diabetes mellitus: Qualifiers: Diabetes mellitus middle or intermediate school 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 insulin use: with senior living use Qualified Code(s): E11.65 - Type 2 diabetes mellitus with hyperglycemia; Z79.4 - adjunct faculty 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 (current) use of insulin Status: Acute (2) BMI 45.0-49.9, adult: Status: Acute (3) (HFpEF) heart failure with preserved ejection fraction: Qualifiers: Heart failure chronicity: chronic Qualified Code(s): I50.32 - Chronic diastolic (congestive) heart failure Status: Acute (4) Diabetes type 2, uncontrolled: Qualifiers: Glycemic state: with hyperglycemia Qualified Code(s): E11.65 - Type 2 diabetes mellitus with hyperglycemia Status: Acute (5) Essential hypertension: Status: Acute (6) Dyslipidemia, goal LDL below 100: Status: Acute (7) Acute on chronic kidney failure: Qualifiers: Acute renal failure type: unspecified Chronic kidney disease stage: unspecified stage Qualified Code(s): N17.9 - Acute kidney failure, unspecified; N18.9 - Chronic kidney disease, unspecified Status: Acute (8) Hypothyroidism: Qualifiers: Hypothyroidism type: unspecified Qualified Code(s): E03.9 - Hypothyroidism, unspecified Status: Acute Plan Kati Szymanski is a very pleasant 63 years old woman admitted with: Uncontrolled diabetes mellitus, blood glucose improving. Admit to hospitalist service. Continue to monitor blood glucose closely. Additional 12 units of Lantus given. Continue treatment with long-acting insulin, Jardiance and insulin sliding scale. Hold Trulicity for now. Nausea and body aches after eating eggs salad. Likely food poisoning. Symptomatic therapy as needed. Heartburn. Tums as needed. Start treatment with omeprazole. Acute on chronic kidney disease. Likely secondary to to uncontrolled glucose, nausea, poor p.o. intake and diuretic use. Hold Lasix and spironolactone. Continue IV fluids. Hypothyroidism. Continue Levothyroxine. Check TSH. Continue to monitor renal function. Avoid nephrotoxic agents. Hyperlipidemia. Continue statin and ezetimibe. Essential hypertension. Continue metoprolol and amlodipine. HFpEF. No acute symptoms. Morbid obesity. BMI 43.9 kg/m2. Weight loss. History of aortic stenosis. No symptoms. Depression. Continue Lexapro. DVT prophylaxis: Heparin subcut Code status: Full Patient would need hospitalization for at least 2 midnight for uncontrolled diabetes treatment with IV fluids, insulin and close monitoring of blood glucose. Quality Stroke Does the patient have a stroke diagnosis?: No VTE Prior VTE?: No VTE Risk Level:: Medical - moderate - high VTE Device Contraindication: Treatment Not Indicated VTE Drug Contraindication: N/A - Med Ordered
--- NOTE | 2023-11-26 03:47 | PC.NURSE ---
Pt laying in bed resting, VSS, POC 215 (hospitalist aware via tiger connect). NS running at 125mls/hr. Awaiting admission orders.
[2023-11-26 03:48] LABS: Glucose, Whole Blood 215 mg/dL (60-115)
[2023-11-26 05:00] LABS: Thyroid Stimulating Hormone 0.32 uIU/mL (0.32-4.0)
[2023-11-26 05:57] LABS: Glucose, Whole Blood 154 mg/dL (60-115)
[2023-11-26 06:07] LABS: Basophils Absolute Auto 0.1 X10*3/uL (0.0-0.2); Eosinophils Absolute Auto 0.3 X10*3/uL (0.0-0.4); Hematocrit 41.3 % (37.0-47.0); Hemoglobin 13.5 g/dl (12.0-16.0); Imm Gran Abs Auto 0.01 X10*3/uL (0.00-0.03); Imm Gran Pct Auto 0.1 % (0.0-0.4); Lymphocytes Absolute Auto 2.1 X10*3/uL (1.2-4.9); Lymphocytes Percent Auto 27.9 % (20-40); MANUAL DIFF FLAG NO; Mean Corpuscular HGB Conc 32.7 g/dl (31.0-35.0); Mean Corpuscular Hemoglobin 26.5 pg (27.0-33.0); Mean Corpuscular Volume 81.1 fL (80.0-98.0); Mean Platelet Volume 10.3 fL (9.4-12.3); Monocytes Absolute Auto 0.7 X10*3/uL (0.1-1.2); Monocytes Percent Auto 8.9 % (2-11); Neutrophils Absolute Auto 4.5 x10*3/uL (2.0-8.3); Neutrophils Percent Auto 58.1 % (45-73); Platelet Count 214 X10*3/uL (160-400); Red Blood Count 5.09 X10*6/uL (4.20-5.50); Red Cell Distribution Width 13.7 % (11.0-16.0); White Blood Count 7.7 X10*3/uL (4.8-10.8)
[2023-11-26] MEDS: Omeprazole 40 MG CAPSULE.DR PO (06:11)
[2023-11-26] MEDS: Levothyroxine Sodium 175 MCG TABLET PO (06:11)
[2023-11-26 06:27] LABS: Alanine Aminotransferase 20 U/L (0-31); Albumin Level 3.8 g/dL (3.5-5.0); Alkaline Phosphatase 68 U/L (39-117); Anion Gap 17 (12-20); Aspartate Amino Transferase 21 U/L (5-31); Bilirubin Total 0.4 mg/dL (0.0-1.0); Blood Urea Nitrogen 50 mg/dL (9-16); Calcium 11.6 mg/dL (8.4-10.2); Carbon Dioxide 26 mmol/L (22-29); Chloride 102 mmol/L (96-108); Creatinine Clr Calc Pharmacy 37.3; Estimated Glomerular Filt Rate 29; Glucose Random 157 mg/dL (60-115); Magnesium 2.4 mg/dL (1.6-2.6); Sodium 141 mmol/L (135-145); Total Protein 7.6 g/dL (6.5-8.0)
[2023-11-26 07:12] LABS: Glucose, Whole Blood 164 mg/dL (60-115)
[2023-11-26] MEDS: Insulin Lispro 100 UNIT/ML 3 ML VIAL SUBCUT ×4 (07:37→20:29)
--- NOTE | 2023-11-26 07:55 | PHA.MEDREC ---
Pharmacy Consult ? Medication Reconciliation Pharmacy has completed the medication reconciliation.pharmacy has reviewed med rec done by overnight hospitalist. used claim history to fill in gaps as pt is poor historian at this time. unknown when date of last home meds was as pt was evicted and recently has been living in her car.
[2023-11-26 08:00] LABS: Estimated Average Glucose 177 mg/dL; Hemoglobin A1c % 7.8 % (<6.0)
[2023-11-26 08:32] LABS: Glucose, Whole Blood 200 mg/dL (60-115)
[2023-11-26] MEDS: Escitalopram Oxalate 10 MG TABLET PO (08:38)
[2023-11-26] MEDS: Acetaminophen 325 MG TABLET 975 MG PO ×2 (08:38→18:06)
[2023-11-26] MEDS: Empagliflozin 25 MG TABLET PO (08:39)
[2023-11-26] MEDS: Heparin Sodium,Porcine 5,000 UNIT/ML VIAL 5000 UNIT SUBCUT ×2 (08:39→20:29)
[2023-11-26] MEDS: Aspirin Enteric Coated 81 MG TABLET.DR PO (08:39)
[2023-11-26] MEDS: Ezetimibe 10 MG TABLET PO (08:39)
[2023-11-26] MEDS: Isosorbide Mononitrate 30 MG TAB.ER.24H PO (08:39)
[2023-11-26] MEDS: Metoprolol Succinate ER 100 MG TAB.ER.24H PO (08:39)
--- NOTE | 2023-11-26 09:26 | MHC.CM.PN ---
Addendum entered by Noni Vidal RN 11/26/23 11:49: Correction- All programs below are [facility], not [facility] Addendum entered by Noni Vidal RN 11/26/23 11:48: Provided patient with information for: [facility] emergency skilled nursing, [facility], [facility] Diversion Program. Patient will coordinate w/ N for assistance w/ skilled nursing/housing. Addendum entered by Noni Vidal RN 11/26/23 09:31: DM supplies/insulin through [facility]. Patient picks up all supplies. Addendum entered by Noni Vidal RN 11/26/23 09:27: ADDITIONALLY, PATIENT REQUESTING ASSISTANCE WITH [employer]) APPLICATION. REFERRAL SENT TO FINANCIAL SERVICES. Original Note: IMM DELIVERED. PATIENT REPORTS SHE WAS EVICTED FROM APARTMENT APPROX 1 MONTH AGO AND HAS BEEN STAYING IN [place]/IN HER CAR W/ HER . STATES SHE IS INDEPENDENT IN ADL'S AND USES A CANE FOR MOBILITY. [facility]. PCP: CAMERON KIRAN MD HCP: ON FILE AND VERIFIED, AGENT IS DAUGHTER OJ + [employer]RIVE - RESOURCE GUIDE PROVIDED. THIS CM LM FOR NUSRAT @ [facility],[phone], TO REQUEST ASSISTANCE W/ LONG TERM PLACEMENT. DP: PT ASKING ABOUT ALTERNATE DC PLANS BUT AWARE THAT PLAN WILL LIKELY INVOLVE LONG TERM/BACK TO CAR. CM WILL CONTINUE TO FOLLOW FOR DC NEEDS.
[2023-11-26 11:52] LABS: Glucose, Whole Blood 313 mg/dL (60-115)
[2023-11-26] MEDS: amLODIPine Besylate 10 MG TABLET PO (11:59)
--- NOTE | 2023-11-26 15:22 | PM.EVENT ---
Event Note Date of Service: 11/26/23 Event Note: Chart reviewed patient examined. Agree with H&P and plan as outlined. In short hyperglycemia secondary to noncompliance with meds. Sugars have now normalized with therapy Time Spent With Patient Time: Total time managing care of this patient today ____ minutes.
[2023-11-26 16:14] LABS: Glucose, Whole Blood 202 mg/dL (60-115)
[2023-11-26 20:23] LABS: Glucose, Whole Blood 249 mg/dL (60-115)
[2023-11-26] MEDS: Insulin Glargine,Hum.rec.anlog 100 UNIT/ML 10 ML VIAL 60 UNIT SUBCUT (20:29)
[2023-11-27] MEDS: 0.9 % Sodium Chloride 1,000 ML 125 ML IVCONT ×2 (01:04→09:10)
[2023-11-27 03:35] VITALS: BP 144/65; PULSE 60; RESP 19; TEMP 36.1; O2SAT 97
[2023-11-27] MEDS: Levothyroxine Sodium 175 MCG TABLET PO (05:31)
[2023-11-27] MEDS: Omeprazole 40 MG CAPSULE.DR PO (05:31)
[2023-11-27 07:26] VITALS: BP 142/63; PULSE 67; RESP 16; TEMP 36.1; O2SAT 98
[2023-11-27 07:33] LABS: Glucose, Whole Blood 143 mg/dL (60-115)
[2023-11-27] MEDS: Empagliflozin 25 MG TABLET PO (08:08)
[2023-11-27] MEDS: Ezetimibe 10 MG TABLET PO (08:08)
[2023-11-27] MEDS: Escitalopram Oxalate 10 MG TABLET PO (08:08)
[2023-11-27] MEDS: Heparin Sodium,Porcine 5,000 UNIT/ML VIAL 5000 UNIT SUBCUT (08:08)
[2023-11-27] MEDS: Metoprolol Succinate ER 100 MG TAB.ER.24H PO (08:08)
[2023-11-27] MEDS: Isosorbide Mononitrate 30 MG TAB.ER.24H PO (08:08)
[2023-11-27] MEDS: Aspirin Enteric Coated 81 MG TABLET.DR PO (08:08)
[2023-11-27 11:23] VITALS: BP 127/60; PULSE 65; RESP 18; TEMP 36.6; O2SAT 95
[2023-11-27 11:25] LABS: Glucose, Whole Blood 282 mg/dL (60-115)
[2023-11-27] MEDS: Insulin Lispro 100 UNIT/ML 3 ML VIAL SUBCUT (11:42)
[2023-11-27] MEDS: amLODIPine Besylate 10 MG TABLET PO (11:43)
--- NOTE | 2023-11-27 12:28 | MHC.CM.PN ---
Addendum entered by Jazlyn Seo 11/27/23 13:40: Patient met with her spouse and the MD. The Patient has been medically cleared for discharge. They will discharge this afternoon. No housing/intermediate options were available for the couple. They have refused the [facility]. They are on the wait list for the [facility]. DP DC to car this afternoon. Emotional support and encouragement provided. Original Note: Per MD rounds, patient is ready to discharge. The [facility] was contacted for placement. T/W spoke with Jennifer. Patient information was emailed at [facility]'s request. Patients spouse was instructed to call the intermediate. He did so. They are both on a waiting list. It is unknown how long the wait would be for a bed. [facility] and [facility] were called. Neither agency will provide a Fpc/Motel. There was a complaint from the Motel. They will not accept the couple again for intermediate. [facility] Fpc/Low income housing was called. left for Rin and Lyndsey. No return call received. Message received from [facility] social work case manager, Jessica. She stated that they do not have any resources to assist with housing.
--- NOTE | 2023-11-27 15:05 | P.DS_ITS ---
DS: Providers Provider Date of Service: 11/27/23 Date of admission: 11/26/23 01: Date of discharge: 11/27/23 Primary care physician: Fatmata Sky MD DS: Diagnosis Discharge Diagnosis (1) Hyperglycemia due to type 2 diabetes mellitus: Status: Acute (2) BMI 45.0-49.9, adult: Status: Acute (3) (HFpEF) heart failure with preserved ejection fraction: Status: Acute (4) Diabetes type 2, uncontrolled: Status: Acute (5) Essential hypertension: Status: Acute (6) Dyslipidemia, goal LDL below 100: Status: Acute (7) Acute on chronic kidney failure: Status: Acute (8) Hypothyroidism: Status: Acute DS: Summary Hospital Course Hospital Course: Kati Szymanski is a very pleasant 63 years old woman with past medical history significant for type 2 diabetes on insulin, essential hypertension, hypothyroidism, HFpEF, aortic stenosis and hyperlipidemia presents to the emergency department complaining of body aches (more prominent in her legs), headache and nausea after eating an egg salad. She denied any headache, sore throat, shortness on breath, chest pain, vomiting, abdominal pain or diarrhea. She does complain of reflux. She has no fevers chills reported. Patient has been living in her car since yesterday as she was evicted. She denied alcohol abuse, illicit drug use or tobacco smoking. In the ED, she was found to have normal vital signs. Blood workup showed no leukocytosis. Her blood glucose was initially 646 and elevated calcium. Her creatinine is 2.29 (baseline is between 1.5-1.8). There is no hyperkalemia or acidosis. Anion gap is normal. Total CK slightly elevated. CXR is negative. Viral testing for influenza and COVID-19 is negative. ED tx: Glargine 60 units subcut, NS 2 L bolus, lispro 28 units (total) subcut. Hospital [facility] Admitted to general medical floor an outpatient therapies were restarted. Sugars normalized and at this point in time she is medically acceptable for discharge. She can resume all pre-hospital therapies and follow-up with PCP next available Time Attestation Discharge coordination time: Greater than 30 minutes Quality: Safe Use of Opioids Does Pt have an Active Cancer Diagnosis on the Problem List?: No Quality: Stroke Does the patient have a stroke diagnosis?: No Physical Exam Vital Signs: Vital Signs: Last Vital Signs Temp 97.9 F 11/27/23 11:23 Pulse 65 11/27/23 11:23 Resp 18 11/27/23 11:23 BP 127/60 11/27/23 11:23 Pulse Ox 95 11/27/23 11:23 O2 Del Method Room Air 11/27/23 11:23 BMI result Body Mass Index 43.9 DS: Data Data Completed and Pending Completed studies during hospitalization [Text1]: Procedures Assistance with Respiratory Ventilation, Less than 24 Consecutive Hours, Continuous Positive Airway Pressure (05/21/23) Labs on day of discharge: Laboratory Results - last 24 hr 11/26/23 11/26/23 11/27/23 16:10 20:19 07:26 POC Glucose 202 H 249 H 143 H 11/27/23 11:15 POC Glucose 282 H Discharge Plan Discharge Anticipated Discharge Date/Time: 11/27/23 14:59 Patient Disposition: Home, Self-Care Discharge Diagnosis: Hyperglycemia Referrals: Fatmata Sky MD [Primary Care Provider] - 1 Week Discharge Medications: Continued (DME) FreeStyle Lite Strips Strip See Rx Instructions .ROUTE .MEDSUPPLY Qty: 10 Rx Instructions: As directed rosuvastatin 40 mg tablet 40 mg PO BEDTIME Qty: 90 1RF (DME) lancets [TRUEplus Lancets] 33 gauge misc See Rx Instructions .ROUTE .MEDSUPPLY Qty: 350 3RF Rx Instructions: 4 times a day aspirin 81 mg tablet,delayed release (DR/EC) 81 mg PO DAILY amlodipine 10 mg tablet 10 mg PO DAILY@1200 diphenhydramine HCl [Banophen] 25 mg capsule 25 mg PO Q6H PRN (Reason: itch or allergies) hydroxyzine HCl 10 mg tablet 10 mg PO DAILY PRN (Reason: anxiety) cholecalciferol (vitamin D3) 25 mcg (1,000 unit) tablet 25 mcg PO DAILY@1200 spironolactone 25 mg Tablet 25 mg PO DAILY Qty: 30 0RF Protocol: Hold for SBP< HOLD for SBP < : 90 metoprolol succinate 100 mg Tablet Extended Release 24 Hr 100 mg PO BEDTIME Qty: 30 0RF Protocol: Hold for SBP/HR < HOLD for SBP < : 90 HOLD for HR < : 60 Cerovite Senior 0.4 mg-300 mcg- 250 mcg tablet 1 tab PO DAILY@1200 furosemide 40 mg tablet 40 mg PO BID@0900,1200 ibuprofen 200 mg Tablet 400 mg PO Q8H PRN (Reason: Pain) ezetimibe 10 mg tablet 10 mg PO DAILY@1200 insulin glargine U-300 conc [Toujeo Max U-300 SoloStar] 300 unit/mL (3 mL) insulin pen 45 unit subcut BEDTIME benzonatate 100 mg capsule 100 mg PO BID PRN (Reason: cough) Qty: 20 0RF albuterol sulfate 90 mcg/actuation aerosol powdr breath activated 2 inh inhalation Q4-6H PRN (Reason: shortness of breath or wheezing) Qty: 1 0RF escitalopram oxalate 10 mg tablet 10 mg PO DAILY Jardiance 25 mg tablet 25 mg QAM isosorbide mononitrate 30 mg tablet extended release 24 hr 30 mg PO QAM levothyroxine 175 mcg tablet 175 mcg QAM Humalog KwikPen Insulin 200 unit/mL (3 mL) insulin pen 30 unit subcut AC Humalog KwikPen Insulin 200 unit/mL (3 mL) insulin pen 6 unit subcut DAILY PRN (Reason: with bedtime snack) Trulicity 3 mg/0.5 mL pen injector 3 mg subcut QWEEK melatonin 5 mg tablet 10 mg PO BEDTIME PRN (Reason: Sleep) (DME) FreeStyle Phil 2 [place] Misc See Rx Instructions .ROUTE .MEDSUPPLY Qty: 1 0RF Rx Instructions: As directed (DME) FreeStyle Phil 2 Sensor Kit See Rx Instructions .ROUTE .MEDSUPPLY Qty: 2 11RF Rx Instructions: As directed every 2 weeks Discharge Orders: Discharge Order (Routine); Ordered 11/27/23 Ordered By: Chaitanya Fisher Diet: Advance to usual diet Activity on Discharge: As tolerated Stand Alone Forms: Patient Portal Discharge page Care Plan Goals: Resume all medicines as taken before hospital Health Concerns: Continue insulin as ordered Plan of Treatment: Follow-up with PCP next available Assessment: See discharge summary
--- NOTE | 2023-11-27 17:44 | P.CDIM_ITS ---
PROVIDER RESPONSE TEXT: To clarify, the appropriate diagnosis supported by the clinical indicators: CKD, stage 3a QUERY TEXT: PHYSICIAN'S DOCUMENTATION REQUEST Date of Query: 11/27/2023 10:17 AM EST Patient Name: Kati Szymanski Admit Date: 11/26/2023 Dear Chaitanya Fisher, A review of the medical record indicates additional documentation may be needed. Please review below and update the documentation accordingly. Clinical Indicators: On 11/26/23: BUN 50/Creatinine 1.79 Estimated GFR 29 Per Hospitalist H&P 11/26/23: Acute on chronic kidney disease. Likely secondary to to uncontrolled glucose, nausea, poor p.o. intak e and diuretic use. Hold Lasix and spironolactone. Continue IV fluids Please clarify which of the following accurately represents the patient's renal status: CKD, stage 1 CKD, stage 2 CKD, stage 3a CKD, stage 3b CKD, stage 4 Other (explain) Clinically unable to determine (explain) Thank you, Nereida Rosenbaum RN Use of terms such as suspected, likely, concern for, or probable (associated with a specific diagnosi s that is being evaluated, monitored, or treated as if it exists) are acceptable and can be coded in the inpatient se tting, when documented at the time of discharge. Please use your independent medical judgment in providing your response. THIS QUERY IS PART OF THE PERMANENT MEDICAL RECORD
== END 2023-11-27 15:36 | disposition home or self-care (01) | DRG 638 ==
LOC: HO.ED 11-26 01:02 → HO.EDOVER 11-26 01:28 → HO.S3 11-26 07:10
PROVIDERS: Physician Assistant; Admitting Provider Internal Medicine; Emergency Provider Internal Medicine; PCP Student in an Organized Health Care Education/Training Program; Visit Provider Hospitalist
DX: E11.65 Type 2 diabetes mellitus with hyperglycemia (principal); I13.0 Hypertensive heart and chronic kidney disease with heart failure and stage 1 through stage 4 chronic kidney disease, or unspecified chronic kidney disease; I50.32 Chronic diastolic (congestive) heart failure; Z59.02 Unsheltered homelessness; N17.9 Acute kidney failure, unspecified; Z68.41 Body mass index [BMI] 40.0-44.9, adult; E03.9 Hypothyroidism, unspecified; E78.5 Hyperlipidemia, unspecified; E11.22 Type 2 diabetes mellitus with diabetic chronic kidney disease; N18.31 Chronic kidney disease, stage 3a; E66.01 Morbid (severe) obesity due to excess calories; E11.42 Type 2 diabetes mellitus with diabetic polyneuropathy; Z91.148 Patient's other noncompliance with medication regimen for other reason; Z20.822 Contact with and (suspected) exposure to COVID-19; Z79.4 Long term (current) use of insulin; Z79.82 Long term (current) use of aspirin; Z79.85 Long-term (current) use of injectable non-insulin antidiabetic drugs; Z79.890 Hormone replacement therapy; Z79.899 Other long term (current) drug therapy
CPT/HCPCS: 0241U; 36415; 80048; 80053; 80076; 81001; 82550; 82947; 83036; 83735; 83880; 84443; 85025; 99221; 99285; J1644

== ENCOUNTER → 2023-11-26 01:22 | Outpatient (BNV) | payer MEDICARE, SELFPAY | PROVIDERS: Admitting Provider Internal Medicine; Emergency Provider Internal Medicine; PCP Student in an Organized Health Care Education/Training Program; Visit Provider Internal Medicine | DX: E11.65 Type 2 diabetes mellitus with hyperglycemia (principal); Z79.4 Long term (current) use of insulin; N17.9 Acute kidney failure, unspecified; I13.0 Hypertensive heart and chronic kidney disease with heart failure and stage 1 through stage 4 chronic kidney disease, or unspecified chronic kidney disease; I50.32 Chronic diastolic (congestive) heart failure; N18.9 Chronic kidney disease, unspecified; E78.5 Hyperlipidemia, unspecified; E03.9 Hypothyroidism, unspecified; Z68.42 Body mass index [BMI] 45.0-49.9, adult | CPT/HCPCS: 99223; 99238; 99499 ==

== ENCOUNTER 2023-11-27 20:11 | Emergency (ER) | payer MEDICARE, MEDICAID, SELFPAY ==
[2023-11-27 21:25] VITALS: BP 143/22; PULSE 62; RESP 18; TEMP 36.2; O2SAT 95; BMI 43.9
[2023-11-27 21:43] LABS: Glucose, Whole Blood 359 mg/dL (60-115)
--- NOTE | 2023-11-27 21:45 | MHC.EDTECH ---
Patient brought into triage area,POC taken and is 359 RN Roopa made aware. Labs obtained and sent to lab.
[2023-11-27 21:50] LABS: MANUAL DIFF FLAG NO
[2023-11-27 21:51] LABS: Basophils Absolute Auto 0.1 X10*3/uL (0.0-0.2); Basophils Percent Auto 1.1 % (0-2); Eosinophils Absolute Auto 0.3 X10*3/uL (0.0-0.4); Eosinophils Percent Auto 4.4 % (0-4); Hematocrit 40.6 % (37.0-47.0); Hemoglobin 13.2 g/dl (12.0-16.0); Imm Gran Abs Auto 0.01 X10*3/uL (0.00-0.03); Imm Gran Pct Auto 0.2 % (0.0-0.4); Lymphocytes Absolute Auto 1.7 X10*3/uL (1.2-4.9); Lymphocytes Percent Auto 26.5 % (20-40); Mean Corpuscular HGB Conc 32.5 g/dl (31.0-35.0); Mean Corpuscular Hemoglobin 26.6 pg (27.0-33.0); Mean Corpuscular Volume 81.9 fL (80.0-98.0); Mean Platelet Volume 10.6 fL (9.4-12.3); Monocytes Absolute Auto 0.4 X10*3/uL (0.1-1.2); Monocytes Percent Auto 6.3 % (2-11); Neutrophils Percent Auto 61.5 % (45-73); Platelet Count 223 X10*3/uL (160-400); Red Blood Count 4.96 X10*6/uL (4.20-5.50); Red Cell Distribution Width 14.2 % (11.0-16.0); White Blood Count 6.5 X10*3/uL (4.8-10.8)
[2023-11-27 22:13] LABS: Alanine Aminotransferase 24 U/L (0-31); Albumin Level 3.8 g/dL (3.5-5.0); Alkaline Phosphatase 72 U/L (39-117); Anion Gap 16 (12-20); Aspartate Amino Transferase 25 U/L (5-31); Bilirubin Total 0.3 mg/dL (0.0-1.0); Blood Urea Nitrogen 38 mg/dL (9-16); Calcium 9.8 mg/dL (8.4-10.2); Carbon Dioxide 22 mmol/L (22-29); Chloride 106 mmol/L (96-108); Creatinine Clr Calc Pharmacy 46.4; Estimated Glomerular Filt Rate 37; Glucose Random 407 mg/dL (60-115); Potassium 4.2 mmol/L (3.3-5.1); Sodium 140 mmol/L (135-145); Total Protein 7.8 g/dL (6.5-8.0)
--- NOTE | 2023-11-27 22:16 | PC.NURSE ---
Lab called critical glucose level 407. ED provider notified.
--- NOTE | 2023-11-27 23:57 | ED_ITS ---
HPI - General Adult General Chief complaint: General Medical Stated complaint: blood sugar spiked to 453 Time Seen by Provider: 11/27/23 23:57 Source: patient History of Present Illness HPI narrative: 63 years old woman with past medical history of diabetes type 2 on insulin, essential hypertension, hypothyroidism, HFpEF, aortic stenosis and hyperlipidemia who presents emergency department for evaluation of elevated glucose, pain and swelling of her lower extremities. Patient was hospitalized from 11/26/2023 until 11/27/2023 for elevated blood glucose, lower extremity pain with swelling and nausea and vomiting. Patient outpatient regimen was restarted and blood sugars improved and she was discharged in the morning of 11/27/2023. Patient states that she has been homeless for approximately 2 weeks and has been living in her car. She states that she has been taking oral medications but was not able to find her insulin which she believes is lost somewhere in her car. She states that her legs have become more swollen and more painful because she can not sleep sitting up. She took her blood you close and it was 359 therefore she had her bring him back to emergency department for re-evaluation. The patient states that they did offer to try to get her into a nursing facility however there were no [facility] facility beds. She states she can not take it and she can not sleep in her car secondary to the swelling and pain in her legs and her inability to care for her on diabetes while she is living in her car. She states she has had no appetite she has not been able to eat or drink. Since leaving the hospital she states she still has nausea but no vomiting. She states she is having epigastric acid reflux like symptoms. She denied fever, chills, rhinorrhea, sore throat, dysuria but she is urinating frequently. She states she has had no appetite. Related Data Home Medications Medication Instructions Recorded Confirmed amlodipine 10 mg tablet 10 mg PO DAILY@1200 08/06/20 11/26/23 aspirin 81 mg tablet,delayed 81 mg PO DAILY 08/06/20 11/26/23 release cholecalciferol (vitamin D3) 25 25 mcg PO DAILY@1200 08/06/20 11/26/23 mcg (1,000 unit) tablet diphenhydramine HCl 25 mg capsule 25 mg PO Q6H PRN itch or allergies 08/06/20 11/26/23 (Banophen) hydroxyzine HCl 10 mg tablet 10 mg PO DAILY PRN anxiety 08/06/20 11/26/23 blood sugar diagnostic (FreeStyle #10 ea 10/01/20 09/17/23 Lite Strips) melatonin 5 mg tablet 10 mg PO BEDTIME PRN Sleep 10/22/21 11/26/23 ezetimibe 10 mg tablet 10 mg PO DAILY@1200 05/21/23 11/26/23 furosemide 40 mg tablet 40 mg PO BID@0900,1200 05/21/23 11/26/23 ibuprofen 200 mg tablet 400 mg PO Q8H PRN Pain 05/21/23 11/26/23 insulin glargine U-300 conc 300 45 unit subcut BEDTIME 05/21/23 11/26/23 unit/mL (3 mL) subcutaneous pen (Toujeo Max U-300 SoloStar) xieiymsu-qyw-iwxpa acid 0.4 1 tab PO DAILY@1200 05/21/23 11/26/23 mg-lycopene 300 mcg-lutein 250 mcg tablet (Cerovite Senior) dulaglutide 3 mg/0.5 mL 3 mg subcut QWEEK 11/26/23 11/26/23 subcutaneous pen injector (Trulicity) empagliflozin 25 mg tablet 25 mg QAM 11/26/23 11/26/23 (Jardiance) escitalopram oxalate 10 mg tablet 10 mg PO DAILY 11/26/23 11/26/23 insulin lispro 200 unit/mL (3 mL) 6 unit subcut DAILY PRN with 11/26/23 11/26/23 subcutaneous pen (Humalog KwikPen bedtime snack U-200 Insulin) insulin lispro 200 unit/mL (3 mL) 30 unit subcut AC 11/26/23 11/26/23 subcutaneous pen (Humalog KwikPen U-200 Insulin) isosorbide mononitrate 30 mg 30 mg PO QAM 11/26/23 11/26/23 tablet,extended release 24 hr levothyroxine 175 mcg tablet 175 mcg QAM 11/26/23 11/26/23 Previous Rx's Medication Instructions Recorded metoprolol succinate 100 mg 100 mg PO BEDTIME #30 tabs 08/16/20 tablet,extended release 24 hr spironolactone 25 mg tablet 25 mg PO DAILY #30 tabs 08/16/20 rosuvastatin 40 mg tablet 40 mg PO BEDTIME #90 tabs 08/21/21 TRUEplus Lancets 33 gauge (lancets) #350 ea 01/09/22 flash glucose scanning reader #1 ea 01/29/22 (FreeStyle Phil 2 Hobart) flash glucose sensor (FreeStyle #2 ea 01/29/22 Phil 2 Sensor kit) albuterol sulfate 90 mcg/actuation 2 inh inhalation Q4-6H PRN 10/13/23 breath activated powder inhaler shortness of breath or wheezing #1 ea benzonatate 100 mg capsule 100 mg PO BID PRN cough #20 caps 10/13/23 Allergies Allergy/AdvReac Type Severity Reaction Status Date / Time Seasonal Allergies Allergy Itchy Eyes Verified 11/27/23 21:24 lisinopril [LISINOPRIL] AdvReac Unknown ITCHY EYES Verified 11/27/23 21:24 Review of Systems 2 Review of Systems: Yes all other systems are reviewed and are negative [facility] Past Medical History [facility] Narrative: Social history: Patient has been homeless x2 weeks and has been living in her car with her , Fred who is here in the emergency department with her. She denies tobacco, alcohol and drug use. Medical History (Updated 11/28/23 @ 07:09 by Luis Schulz MD) Hypothyroidism Aortic stenosis COVID-19 vaccine series completed Type 2 diabetes mellitus with polyneuropathy Diabetes type 2, uncontrolled CKD (chronic kidney disease) (HFpEF) heart failure with preserved ejection fraction Hypokalemia Hypomagnesemia Acute on chronic heart failure with preserved ejection fraction (HFpEF) Anasarca Congestive heart failure Kidney disease Syncope CHF (congestive heart failure) Diabetes mellitus with hyperglycemia Dyslipidemia, goal LDL below 100 Essential hypertension Type 2 diabetes mellitus with diabetic nephropathy Other specified hypothyroidism Autoimmune thyroiditis Abnormal dexamethasone suppression test Morbid obesity due to excess calories BMI 45.0-49.9, adult Surgical History History of History of removal of calculus of renal pelvis through percutaneous nephrostomy Family History Family History Family/Other Diabetes Mother History of high blood pressure Father History of high blood pressure Maternal Grandmother History of high blood pressure Social History Social History Household Members: Spouse Housing: Homeless Are you a primary healthcare architect to a significant other at home: No Do you presently have visiting nurse or other home services: Yes Alcohol intake: current Alcohol intake frequency: a few times a week Alcohol type: wine Comment: refusing socks. Patient Tobacco Use Status: Never used Tobacco Advance Directives: No Advance Directives Information Provided: No service: No Current occupational status: disabled Physical Exam ED Vital Signs: Vital Signs - 24 hr 11/27/23 21:25 11/28/23 00:47 11/28/23 06:09 Temperature 97.1 F 98.3 F Pulse Rate 62 97 67 Respiratory Rate 18 16 20 Blood Pressure 143/22 H 129/58 L 136/66 Pulse Oximetry 95 98 95 Oxygen Delivery Method Room Air Room Air Room Air BMI result Body Mass Index 43.9 Vital signs were normal Exam: General: Awake, alert in no distress, elevated BMI 43.9 kg / m2 Head: Normocephalic, atraumatic EENT: PERRL, Lids normal, sclera normal, conjunctiva normal, nose normal , ears normal, throat without erythema or exudates Neck: Supple, no adenopathy Lung: breath sounds symmetric, no wheezing, rales or rhonchi Chest: symmetric movement, nontender Heart: regular rate and rhythm, normal S1, S2 no murmurs or rubs Abdomen: soft, non-tender, nondistended, normal bowel sounds Back: no vertebral tenderness, no CVAT Extremities: no deformities, moves all extremities symmetrically, trace to 1+ pitting edema bilaterally symmetric Neuro: Awake, alert, oriented, normal speech, cranial nerves intact, moves all extremities symmetrically Psych: Pleasant, cooperative Medications Administered Discontinued Medications Generic Name Dose Route Start Last Admin Trade Name Freq PRN Reason Stop Dose Admin Sodium Chloride 1,000 mls @ 999 mls/hr 11/28/23 00:28 11/28/23 01:53 Ns IV 11/28/23 01:28 Infused .Q1H1M STA Infusion Insulin Human Regular 5 unit 11/28/23 00:28 11/28/23 01:02 Insulin Regular, Human 100 Unit/Ml 3 Ml Vial IVPUSH 11/28/23 00:29 5 unit ONCE ONE Administration Medical Decision Making Medical Decision Making MDM Narrative: 63 years old woman with past medical history of diabetes type 2 on insulin, essential hypertension, hypothyroidism, HFpEF, aortic stenosis , hyperlipidemia, homeless x2 weeks living in her car with her who presents emergency department for evaluation of elevated glucose, pain and swelling of her lower extremities, hospitalized from 11/26/2023 until 11/27/2023 for elevated blood glucose, lower extremity pain with swelling and nausea and vomiting discharge in the morning of the day of the evaluation. Patient has been compliant with her oral medications but was not able to find her insulin which she believes is lost somewhere in her car. Patient states she can not live in her car anymore and that she needs to put her legs up otherwise she has severe swelling in her legs with severe pain. She also states she has had no appetite, continues to have nausea but no vomiting, complaining of epigastric heartburn like pain. Vital signs were normal. Abdominal exam was unremarkable. Patient does have trace to 1+ pitting edema in her lower extremities. Differential diagnosis: Includes was not limited to hyperglycemia, DKA, dehydration, volume depletion, electrolyte abnormalities, anemia, dependent edema, peripheral edema Following evaluation was ordered: CBC, CMP Patient was treated with the following: Normal saline x1 L, regular insulin 5 units IV 00:45 Start physician observation: My interpretation patient's laboratory evaluation is as follows: CBC was normal. CMP revealed a normal bicarb of 22 and an anion gap which was normal at 16. Glucose was elevated 4 7 BUN and creatinine were elevated 38 and 1.44 which is consistent with her baseline. Patient was ordered to get repeat point of care glucose I did order physical therapy and case management evaluation to see if the patient qualifies for [facility] facility placement after her recent admission. Patient will be kept in physician observation until her glucose improves and until disposition can be determined or her symptoms improve over time. 07:06 Continue physician observation Patient hourly point of care glucose has improved significantly and was 196, 171 and 142. I did order a diabetic diet. The patient's outpatient regimen will need to be reconciled in ordered. At the end of my shift, patient's care was turned over to my colleague, Dr. Tafoya. The patient will be kept in physician observation until she can be evaluated by case management and physical therapy and a disposition can be determined. Admission/Observation Consideration of admission/observation: Escalation of care including admission/observation considered Lab Data MDM Lab Attestation statement: I reviewed the patient's lab results. 11/27/23 21:44 02/23/24 21:44 Labs: Lab Results 11/27/23 11/27/23 11/28/23 Range/Units 21:40 21:44 02:35 WBC 6.5 (4.8-10.8) X10*3/uL RBC 4.96 (4.20-5.50) X10*6/uL Hgb 13.2 (12.0-16.0) g/dl Hct 40.6 (37.0-47.0) % MCV 81.9 (80.0-98.0) fL MCH 26.6 L (27.0-33.0) pg MCHC 32.5 (31.0-35.0) g/dl RDW 14.2 (11.0-16.0) % Plt Count 223 (160-400) X10*3/uL MPV 10.6 (9.4-12.3) fL Immature Gran % (Auto) 0.2 (0.0-0.4) % Neut % (Auto) 61.5 (45-73) % Lymph % (Auto) 26.5 (20-40) % Dyer % (Auto) 6.3 (2-11) % Eos % (Auto) 4.4 H (0-4) % Baso % (Auto) 1.1 (0-2) % Lymph # (Auto) 1.7 (1.2-4.9) X10*3/uL Dyer # (Auto) 0.4 (0.1-1.2) X10*3/uL Eos # (Auto) 0.3 (0.0-0.4) X10*3/uL Baso # (Auto) 0.1 (0.0-0.2) X10*3/uL Abs Immat Gran (auto) 0.01 (0.00-0.03) X10*3/uL Absolute Neuts (auto) 4.0 (2.0-8.3) x10*3/uL Absolute Nucleated RBC 0.000 (0.0-0.012) X10*3/uL Nucleated RBC % (auto) 0.0 (0.0-0.2) /100WBC Sodium 140 (135-145) mmol/L Potassium 4.2 (3.3-5.1) mmol/L Chloride 106 (96-108) mmol/L Carbon Dioxide 22 (22-29) mmol/L Anion Gap 16 (12-20) BUN 38 H (9-16) mg/dL Creatinine 1.44 H (0.5-1.4) mg/dL Estim Creat Clear Calc 46.4 Estimated GFR 37 POC Glucose 359 H* 196 H (60-115) mg/dL Random Glucose 407 H* (60-115) mg/dL Calcium 9.8 D (8.4-10.2) mg/dL Total Bilirubin 0.3 (0.0-1.0) mg/dL AST 25 (5-31) U/L ALT 24 (0-31) U/L Alkaline Phosphatase 72 (39-117) U/L Total Protein 7.8 (6.5-8.0) g/dL Albumin 3.8 (3.5-5.0) g/dL 11/28/23 11/28/23 Range/Units 03:40 06:42 WBC (4.8-10.8) X10*3/uL RBC (4.20-5.50) X10*6/uL Hgb (12.0-16.0) g/dl Hct (37.0-47.0) % MCV (80.0-98.0) fL MCH (27.0-33.0) pg MCHC (31.0-35.0) g/dl RDW (11.0-16.0) % Plt Count (160-400) X10*3/uL MPV (9.4-12.3) fL Immature Gran % (Auto) (0.0-0.4) % Neut % (Auto) (45-73) % Lymph % (Auto) (20-40) % Dyer % (Auto) (2-11) % Eos % (Auto) (0-4) % Baso % (Auto) (0-2) % Lymph # (Auto) (1.2-4.9) X10*3/uL Dyer # (Auto) (0.1-1.2) X10*3/uL Eos # (Auto) (0.0-0.4) X10*3/uL Baso # (Auto) (0.0-0.2) X10*3/uL Abs Immat Gran (auto) (0.00-0.03) X10*3/uL Absolute Neuts (auto) (2.0-8.3) x10*3/uL Absolute Nucleated RBC (0.0-0.012) X10*3/uL Nucleated RBC % (auto) (0.0-0.2) /100WBC Sodium (135-145) mmol/L Potassium (3.3-5.1) mmol/L Chloride (96-108) mmol/L Carbon Dioxide (22-29) mmol/L Anion Gap (12-20) BUN (9-16) mg/dL Creatinine (0.5-1.4) mg/dL Estim Creat Clear Calc Estimated GFR POC Glucose 171 H 142 H (60-115) mg/dL Random Glucose (60-115) mg/dL Calcium (8.4-10.2) mg/dL Total Bilirubin (0.0-1.0) mg/dL AST (5-31) U/L ALT (0-31) U/L Alkaline Phosphatase (39-117) U/L Total Protein (6.5-8.0) g/dL Albumin (3.5-5.0) g/dL Independent Historian Clinical information obtained from an independent historian. History obtained from or confirmed by: Spouse External Record Review External record reviewed: Inpatient record Chronic Conditions Patient?s care impacted by: Diabetes and Other (Congestive heart failure) Discharge Plan Discharge Clinical Impression: Acute hyperglycemia, Diabetes mellitus, Noncompliance with medications, Edema, peripheral Patient Disposition: Still a Patient Prescriptions: No Action (DME) FreeStyle Lite Strips Strip See Rx Instructions .ROUTE .MEDSUPPLY Qty: 10 Rx Instructions: As directed rosuvastatin 40 mg tablet 40 mg PO BEDTIME Qty: 90 1RF (DME) lancets [TRUEplus Lancets] 33 gauge misc See Rx Instructions .ROUTE .MEDSUPPLY Qty: 350 3RF Rx Instructions: 4 times a day aspirin 81 mg tablet,delayed release (DR/EC) 81 mg PO DAILY amlodipine 10 mg tablet 10 mg PO DAILY@1200 diphenhydramine HCl [Banophen] 25 mg capsule 25 mg PO Q6H PRN (Reason: itch or allergies) hydroxyzine HCl 10 mg tablet 10 mg PO DAILY PRN (Reason: anxiety) cholecalciferol (vitamin D3) 25 mcg (1,000 unit) tablet 25 mcg PO DAILY@1200 spironolactone 25 mg Tablet 25 mg PO DAILY Qty: 30 0RF Protocol: Hold for SBP< HOLD for SBP < : 90 metoprolol succinate 100 mg Tablet Extended Release 24 Hr 100 mg PO BEDTIME Qty: 30 0RF Protocol: Hold for SBP/HR < HOLD for SBP < : 90 HOLD for HR < : 60 Cerovite Senior 0.4 mg-300 mcg- 250 mcg tablet 1 tab PO DAILY@1200 furosemide 40 mg tablet 40 mg PO BID@0900,1200 ibuprofen 200 mg Tablet 400 mg PO Q8H PRN (Reason: Pain) ezetimibe 10 mg tablet 10 mg PO DAILY@1200 insulin glargine U-300 conc [Toujeo Max U-300 SoloStar] 300 unit/mL (3 mL) insulin pen 45 unit subcut BEDTIME benzonatate 100 mg capsule 100 mg PO BID PRN (Reason: cough) Qty: 20 0RF albuterol sulfate 90 mcg/actuation aerosol powdr breath activated 2 inh inhalation Q4-6H PRN (Reason: shortness of breath or wheezing) Qty: 1 0RF escitalopram oxalate 10 mg tablet 10 mg PO DAILY Jardiance 25 mg tablet 25 mg QAM isosorbide mononitrate 30 mg tablet extended release 24 hr 30 mg PO QAM levothyroxine 175 mcg tablet 175 mcg QAM Humalog KwikPen Insulin 200 unit/mL (3 mL) insulin pen 30 unit subcut AC Humalog KwikPen Insulin 200 unit/mL (3 mL) insulin pen 6 unit subcut DAILY PRN (Reason: with bedtime snack) Trulicity 3 mg/0.5 mL pen injector 3 mg subcut QWEEK melatonin 5 mg tablet 10 mg PO BEDTIME PRN (Reason: Sleep) (DME) FreeStyle Phil 2 Hobart Misc See Rx Instructions .ROUTE .MEDSUPPLY Qty: 1 0RF Rx Instructions: As directed (DME) FreeStyle Phil 2 Sensor Kit See Rx Instructions .ROUTE .MEDSUPPLY Qty: 2 11RF Rx Instructions: As directed every 2 weeks
[2023-11-28] VITALS (8 sets, daily range): BP systolic 127–139; BP diastolic 37–66; PULSE 62–97; RESP 16–20; TEMP 36.6–36.9; O2SAT 95–98
[2023-11-28] MEDS: 0.9 % Sodium Chloride 1,000 ML 999 ML IV (00:52)
[2023-11-28] MEDS: Insulin Regular, Human 100 UNIT/ML 3 ML VIAL IVPUSH (01:02)
[2023-11-28 02:38] LABS: Glucose, Whole Blood 196 mg/dL (60-115)
[2023-11-28 03:44] LABS: Glucose, Whole Blood 171 mg/dL (60-115)
[2023-11-28 06:46] LABS: Glucose, Whole Blood 142 mg/dL (60-115)
[2023-11-28] MEDS: Acetaminophen 325 MG TABLET 975 MG PO (08:51)
--- NOTE | 2023-11-28 10:48 | MHC.CM.PN ---
Addendum entered by Rin Cesar RN 11/28/23 13:16: [facility] HAD OFFERED A BED HOWEVER THEN RETRACTED THEY DO NOT CONTRACT W/AARP Original Note: CM CONSULT PRDERED, CM DISCUSSED CASE W/P.T., PT BEING RECOMMENDED STR AND PT HAD REQUESTED [facility], [facility] REFERRAL PLACED TO LOCAL SNF'S AND [facility] (), [facility] AND CM WILL MEET W/PT FOR CM ASSESSMENT.
--- NOTE | 2023-11-28 11:32 | PC.NURSE ---
spoke w pharmacy, plan for med rec this morning.
--- NOTE | 2023-11-28 11:35 | PHA.MEDREC ---
Pharmacy Consult ? Medication Reconciliation Pharmacy has completed the medication reconciliation. Pt discharged yesterday (11/27/23). Utilized discharge packet to confirm meds.
--- NOTE | 2023-11-28 12:19 | HE.PHANOTE ---
PT IS HOMELESS AND BROUGHT TRULICITY IN FROM HER CAR WHERE IT WAS BEING STORED. I INFORMED NURSING THAT WE CANNOT ADMINISTER THIS (IT WAS PROBABLY FROZEN).
[2023-11-28 13:36] LABS: Glucose, Whole Blood 205 mg/dL (60-115)
--- NOTE | 2023-11-28 13:53 | MHC.CM.PN ---
CM MET W/PT AND WHO WAS AT BEDSIDE, PT REPORTS SHE AND ARE NEWLY HOMELESS, PT IS INDEP AT BASELINE AND USES A CPAP AND CANE FOR DME, PT VERIFIES PCP AND HCP ON FILE ARE CORRECT. PT AND REPORT THAT PT ALSO HAS MH STANDARD AND CM HAS CONTACTED ED PT REGISTRATION AND THEY HAVE ADDED IT TO EXPANSE. SNF REFERRAL EXPANDED AMND CM AWAITING BED OFFER, PT'S ED NURSE UPDATED.
[2023-11-28 18:23] LABS: Glucose, Whole Blood 237 mg/dL (60-115)
[2023-11-28] MEDS: Insulin Lispro 100 UNIT/ML 3 ML VIAL 30 UNIT SUBCUT (18:23)
--- NOTE | 2023-11-28 19:46 | PC.NURSE ---
Pt transferring to [facility]. pt repositioned, cleaned and dry. Report given to Philipp CORDERO.
[2023-11-28 21:16] LABS: Glucose, Whole Blood 100 mg/dL (60-115)
[2023-11-28] MEDS: Metoprolol Succinate ER 100 MG TAB.ER.24H PO (21:16)
[2023-11-28] MEDS: Atorvastatin Calcium 80 MG TABLET PO (21:16)
[2023-11-28] MEDS: Insulin Glargine,Hum.rec.anlog 100 UNIT/ML 10 ML VIAL 36 UNIT SUBCUT (21:17)
[2023-11-29 06:00] VITALS: BP 172/77; PULSE 71; RESP 16; TEMP 37.1; O2SAT 93
[2023-11-29 06:32] LABS: Glucose, Whole Blood 110 mg/dL (60-115)
[2023-11-29] MEDS: Levothyroxine Sodium 175 MCG TABLET PO (06:33)
[2023-11-29] MEDS: Insulin Lispro 100 UNIT/ML 3 ML VIAL 30 UNIT SUBCUT ×2 (07:50→16:50)
--- NOTE | 2023-11-29 08:34 | MHC.CM.PN ---
CM UNABLE TO GENERATE FACE TO FACE FOR [facility] SERVICES, CM PRESS SET UP PERSON/ED CM EMAILED AND [facility] UPDATED.
--- NOTE | 2023-11-29 08:35 | MHC.EDTECH ---
PT ATE 100% OF HER BREAKFAST. 120CC OF FLUIDS. IS AT BEDSIDE. PT URINATED ON THE COMMODE. PT WAS SOILED IN BED DUE TO MOVEMENT OF THE PUREWICK.
--- NOTE | 2023-11-29 09:57 | MHC.CM.PN ---
Addendum entered by Rin Cesar, RN 11/29/23 13:40: CM STILL AWAITING BED OFFER, PLEASE CHECK IN W/[facility] IN AM AND PT SHOULD HAVE PT JENNYAL SEE HER SHE DID NOT NEED SERVICES ON DC 11/27 HOWEVER CAME BACK TO ED D/T HOMELESS AND UNCOMFORTABLE IN VEHICLE AFTER BEING DC'D FOR ABOUT 5HRS. Original Note: CM RECEIVED MESSAGE FROM [facility], THEY ARE INTERESTED HOWEVER DO NOT HAVE A BED, CM REQUESTED THEY FOLLOW AND SN[facility].
[2023-11-29] MEDS: Multivitamin TABLET 1 TAB PO (11:02)
[2023-11-29] MEDS: Ezetimibe 10 MG TABLET PO (11:02)
[2023-11-29] MEDS: Furosemide 40 MG TABLET PO ×2 (11:02→14:56)
[2023-11-29] MEDS: Aspirin Enteric Coated 81 MG TABLET.DR PO (11:02)
[2023-11-29] MEDS: Escitalopram Oxalate 10 MG TABLET PO (11:03)
[2023-11-29 11:41] LABS: Glucose, Whole Blood 60 mg/dL (60-115)
[2023-11-29] MEDS: Isosorbide Mononitrate 30 MG TAB.ER.24H PO (12:31)
[2023-11-29] MEDS: Spironolactone 25 MG TABLET PO (12:32)
[2023-11-29] MEDS: amLODIPine Besylate 10 MG TABLET PO (12:33)
[2023-11-29] MEDS: Cholecalciferol (Vitamin D3) 25 MCG TABLET PO (12:33)
[2023-11-29] MEDS: Empagliflozin 25 MG TABLET PO (12:33)
--- NOTE | 2023-11-29 13:06 | MHC.EDTECH ---
pt ate 100% of her lunch. is at bedside. Pt also used the bedside commode and had a large brown bowel movement.
[2023-11-29 14:00] VITALS: BP 121/57; PULSE 98; RESP 17; TEMP 36.5; O2SAT 94
[2023-11-29 16:38] LABS: Glucose, Whole Blood 220 mg/dL (60-115)
--- NOTE | 2023-11-29 17:43 | PC.NURSE ---
Purewick emptied for 1100cc CYU. Pt able to void on commode, 2 unmeasured voids. 1 large bowel movement.
--- NOTE | 2023-11-29 20:24 | PC.NURSE ---
Resp with pt. Pts remains at bedside. Plan of care ongoing.
[2023-11-29 21:15] LABS: Glucose, Whole Blood 143 mg/dL (60-115)
[2023-11-29] MEDS: Atorvastatin Calcium 80 MG TABLET PO (21:18)
[2023-11-29] MEDS: Insulin Glargine,Hum.rec.anlog 100 UNIT/ML 10 ML VIAL 36 UNIT SUBCUT (21:18)
[2023-11-29] MEDS: Metoprolol Succinate ER 100 MG TAB.ER.24H PO (21:18)
--- NOTE | 2023-11-29 21:21 | PC.NURSE ---
Pt medicated per mar. Pts at bedside. Plan of care ongoing.
[2023-11-29 21:48] VITALS: BP 129/62; PULSE 90; RESP 18; TEMP 37.2; O2SAT 91
--- NOTE | 2023-11-29 21:59 | MHC.EDTECH ---
patient helped to commode. at bedside
[2023-11-29 22:00] VITALS: BP 148/70; PULSE 60; RESP 19; TEMP 36.1
--- NOTE | 2023-11-30 06:21 | PC.NURSE ---
Levo not in the pyxis. This RN called pharmacy and spoke with rasheeda. Per rasheeda will send med down. Plan of care ongoing.
[2023-11-30] MEDS: Levothyroxine Sodium 175 MCG TABLET PO (06:25)
--- NOTE | 2023-11-30 06:27 | PC.NURSE ---
Med received from pharmacy. Pt medicated per dec. Plan of care ongoing.
[2023-11-30 07:27] LABS: Glucose, Whole Blood 187 mg/dL (60-115)
[2023-11-30 08:44] VITALS: BP 129/60; PULSE 67; RESP 17; TEMP 36.3; O2SAT 97
[2023-11-30] MEDS: Isosorbide Mononitrate 30 MG TAB.ER.24H PO (08:49)
[2023-11-30] MEDS: Furosemide 40 MG TABLET PO ×2 (08:49→12:08)
[2023-11-30] MEDS: Spironolactone 25 MG TABLET PO (08:49)
[2023-11-30] MEDS: Aspirin Enteric Coated 81 MG TABLET.DR PO (08:49)
[2023-11-30] MEDS: Escitalopram Oxalate 10 MG TABLET PO (08:49)
[2023-11-30] MEDS: Insulin Lispro 100 UNIT/ML 3 ML VIAL 30 UNIT SUBCUT ×2 (08:50→11:58)
[2023-11-30] MEDS: 0.9 % Sodium Chloride Flush 10 ML SYRINGE 5 ML IVFLUSH (08:55)
[2023-11-30] MEDS: Empagliflozin 25 MG TABLET PO (09:29)
[2023-11-30 10:03] LABS: COVID-19 Test Negative (Negative); IDNOW Serial# 58CA691E
--- NOTE | 2023-11-30 10:28 | MHC.CM.ED ---
Addendum entered by Dolores Uriostegui 11/30/23 11:09: Referral broadcasted to all facilities in the [facility] that are contracted with [facility]. 154 referrals made. Original Note: Patient remains in ER overflow. Clinical updates sent to facilities still following: Cir[facility]. Kari, [place] for [facility], [facility], Angélica Lorenzana [facility]. Continue to monitor for d/c needs.
[2023-11-30 11:17] LABS: Glucose, Whole Blood 152 mg/dL (60-115)
--- NOTE | 2023-11-30 11:47 | PC.NURSE ---
Pt calm, cooperative with care. A&Ox3, pleasant. Purewick in place.
[2023-11-30] MEDS: amLODIPine Besylate 10 MG TABLET PO (12:08)
[2023-11-30] MEDS: Ezetimibe 10 MG TABLET PO (12:08)
[2023-11-30] MEDS: Multivitamin TABLET 1 TAB PO (12:08)
[2023-11-30] MEDS: Cholecalciferol (Vitamin D3) 25 MCG TABLET PO (12:08)
--- NOTE | 2023-11-30 13:29 | MHC.CM.ED ---
Addendum entered by Dolores Uriostegui 11/30/23 13:56: Patient's sister, Valentine, made aware via telephone at [phone] at patient's request. Original Note: [facility] [place] is able to offer a bed. Patient accepts. [facility] is in the process of obtaining insurance auth. Continue to monitor for d/c needs.
[2023-11-30 14:00] VITALS: BP 116/59; PULSE 55; RESP 22; TEMP 36.6; O2SAT 96
[2023-11-30 16:19] LABS: Glucose, Whole Blood 86 mg/dL (60-115)
[2023-11-30 17:26] VITALS: BP 129/64; PULSE 68; RESP 20; TEMP 37.1; O2SAT 94
--- NOTE | 2023-11-30 21:00 | PC.NURSE ---
given new pads as was incontinent and new purewick. also used the bedside commode x1 standby. given new socks. clear yellow urine in canister. n odistress. talking and breathing well. smiling and talking with visitor at bedside.
[2023-11-30 21:19] LABS: Glucose, Whole Blood 193 mg/dL (60-115)
[2023-11-30 21:41] VITALS: BP 119/43; PULSE 68; RESP 20; TEMP 36.9; O2SAT 94
[2023-11-30] MEDS: Atorvastatin Calcium 80 MG TABLET PO (21:49)
[2023-11-30] MEDS: Metoprolol Succinate ER 100 MG TAB.ER.24H PO (21:49)
[2023-11-30] MEDS: Insulin Glargine,Hum.rec.anlog 100 UNIT/ML 10 ML VIAL 36 UNIT SUBCUT (21:49)
[2023-11-30 21:52] VITALS: BP 124/58
--- NOTE | 2023-11-30 23:36 | PC.NURSE ---
this rn assumed care of pt, pt resting in stretcher, no acute distress noted. pt reporting headache, requesting tylenol, Son GILLESPIE aware. partner at bedside.
[2023-12-01] MEDS: Acetaminophen 325 MG TABLET 650 MG PO (00:02)
[2023-12-01] MEDS: 0.9 % Sodium Chloride Flush 10 ML SYRINGE 5 ML IVFLUSH ×2 (00:02→07:39)
--- NOTE | 2023-12-01 00:09 | PC.NURSE ---
pt medicated per mar, pt tolerated well with water.
[2023-12-01 06:04] LABS: Glucose, Whole Blood 185 mg/dL (60-115)
[2023-12-01 06:09] VITALS: BP 128/70; PULSE 61; RESP 16; O2SAT 96
--- NOTE | 2023-12-01 07:05 | PC.NURSE ---
Ana, previous RN, called pharmacy for 0600 levothyroxine per report.
[2023-12-01] MEDS: Levothyroxine Sodium 175 MCG TABLET PO (07:38)
[2023-12-01] MEDS: Insulin Lispro 100 UNIT/ML 3 ML VIAL 30 UNIT SUBCUT (08:49)
[2023-12-01] MEDS: Escitalopram Oxalate 10 MG TABLET PO (08:51)
[2023-12-01] MEDS: Aspirin Enteric Coated 81 MG TABLET.DR PO (08:51)
[2023-12-01 08:53] VITALS: BP 151/69; PULSE 62; RESP 16; TEMP 36.6; O2SAT 96
[2023-12-01] MEDS: Furosemide 40 MG TABLET PO (08:54)
--- NOTE | 2023-12-01 08:57 | PC.NURSE ---
called pharmacy for jardiance.
[2023-12-01] MEDS: Spironolactone 25 MG TABLET PO (09:34)
[2023-12-01] MEDS: Empagliflozin 25 MG TABLET PO (09:34)
[2023-12-01] MEDS: Isosorbide Mononitrate 30 MG TAB.ER.24H PO (09:34)
--- NOTE | 2023-12-01 09:45 | PC.NURSE ---
assumed care of pt at 0700. pt a&o x4, pleasant, calm, and cooperative. pt significant other at bedside in recliner. pt used bedside commode and washed up. breakfast consumed and pt medicated per dec. vitals documented in worklist. per NIVIA Bernal, pt to go to [email or web address], transportation at 1100. pt aware of plan.
--- NOTE | 2023-12-01 10:08 | MHC.CM.ED ---
Addendum entered by Dolores Uriostegui 12/01/23 10:10: Patient's sister, Valentine, made aware via telephone at [phone]. Original Note: Patient remains in ER overflow. Insurance auth has been obtained by [facility] [place]. Patient can leave at 11am. [facility] booked. Med nec with chart. Patient, Agustina Ibarra RN and Brenda GILLESPIE aware. Continue to monitor for d/c needs.
[2023-12-01 11:08] LABS: Glucose, Whole Blood 215 mg/dL (60-115)
== END 2023-12-01 12:08 ==
PROVIDERS: Physician Assistant Medical; Emergency Provider Emergency Medicine Emergency Medical Services; PCP Student in an Organized Health Care Education/Training Program
DX: E11.65 Type 2 diabetes mellitus with hyperglycemia (principal); I10 Essential (primary) hypertension; E03.9 Hypothyroidism, unspecified; I50.30 Unspecified diastolic (congestive) heart failure; E78.5 Hyperlipidemia, unspecified; R11.2 Nausea with vomiting, unspecified; R60.9 Edema, unspecified; Z91.148 Patient's other noncompliance with medication regimen for other reason; Z79.4 Long term (current) use of insulin; Z59.02 Unsheltered homelessness
CPT/HCPCS: 36415; 80053; 82947; 85025; 87635; 96361; 96374; 97162; 99285

== ENCOUNTER 2025-05-08 12:35 | Outpatient (AMB) | payer MEDICARE, SELFPAY ==
--- NOTE | 2025-05-08 12:42 | MHC.OFFVIS ---
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 Allergies Seasonal Allergies Allergy (Verified 11/27/23 21:24) Itchy Eyes lisinopril (LISINOPRIL) Adverse Reaction (Unknown, Verified 11/27/23 21:24) ITCHY EYES Medication List - Last Reconciled 05/08/25 by Raheem Schulte MD albuterol sulfate 90 mcg/actuation 2 inhalations inhalation Q4-6H PRN amlodipine 10 mg PO DAILY@1200 aspirin 81 mg PO DAILY benzonatate 100 mg PO BID PRN blood sugar diagnostic (FreeStyle Lite Strips) As directed cholecalciferol (vitamin D3) 25 mcg PO DAILY@1200 diphenhydramine HCl (Banophen) 25 mg PO Q6H PRN dulaglutide (Trulicity) 3 mg subcut QWEEK empagliflozin (Jardiance) 25 mg PO DAILY escitalopram oxalate 10 mg PO DAILY ezetimibe 10 mg PO DAILY@1200 flash glucose scanning reader (UrlistStyle Phil 2 [place]) As directed flash glucose sensor (FreeStyle Phil 2 Sensor kit) As directed every 2 weeks furosemide 40 mg PO BID@0900,1200 hydroxyzine HCl 10 mg PO DAILY PRN ibuprofen 400 mg PO Q8H PRN insulin lispro (Humalog KwikPen U-200 Insulin) 30 units subcut TIDAC isosorbide mononitrate ER 30 mg PO DAILY levothyroxine 175 mcg PO DAILY@0600 melatonin 10 mg PO BEDTIME PRN metoprolol succinate ER 100 mg See Protocol PO BEDTIME nogbxqca-xem-FX-lycopen-lutein 0.4 mg-300 mcg- 250 mcg (Cerovite Senior) 1 tab PO DAILY@1200 rosuvastatin 40 mg PO BEDTIME spironolactone 25 mg See Protocol PO DAILY TRUEplus Lancets (lancets) 4 times a day NS HPI Comments Details: Kati comes for follow-up after a long gap. Says she is currently at assisted living facility and doing better although she has very limited functional capacity due to her right hip discomfort. She was told that she might need hip replacement although she was felt to be high risk given her aortic stenosis. She has not had any follow-up testing for aortic stenosis. She denies any clear orthopnea, PND, worsening leg edema. Currently on high dose diuretic therapy. Denies any exertional chest pain or worsening exertional shortness of breath or exertional lightheadedness although her exercise capacity is quite limited. She walks with a walker what limited. Of time otherwise for long distances uses wheelchair. She said diabetes also was not well controlled at this point time. [facility] Medical History (Updated 05/08/25 @ 13:06 by Raheem Schulte MD) (HFpEF) heart failure with preserved ejection fraction Hypothyroidism Aortic stenosis COVID-19 vaccine series completed Type 2 diabetes mellitus with polyneuropathy Diabetes type 2, uncontrolled CKD (chronic kidney disease) Hypokalemia Hypomagnesemia Acute on chronic heart failure with preserved ejection fraction (HFpEF) Anasarca Congestive heart failure Kidney disease Syncope CHF (congestive heart failure) Diabetes mellitus with hyperglycemia Dyslipidemia, goal LDL below 100 Essential hypertension Type 2 diabetes mellitus with diabetic nephropathy Other specified hypothyroidism Autoimmune thyroiditis Abnormal dexamethasone suppression test Morbid obesity due to excess calories BMI 45.0-49.9, adult Surgical History History of History of removal of calculus of renal pelvis through percutaneous nephrostomy Family History Family/Other Diabetes Mother History of high blood pressure Father History of high blood pressure Maternal Grandmother History of high blood pressure Social History Household Members: Spouse Housing: Homeless Are you a primary health care assistant to a significant other at home: No Do you presently have visiting nurse or other home services: Yes Alcohol intake: current Alcohol intake frequency: a few times a week Alcohol type: wine Comment: refusing socks. Patient Tobacco Use Status: Never used Tobacco service: No Current occupational status: disabled Review of Systems Const Denies chills, Denies fatigue, Denies fever(s), Denies frequent falls, Denies weakness, Denies weight gain and Denies weight loss ENT Denies dizziness Card Denies chest pain, Denies leg edema, Denies lightheadedness, Denies palpitations, Denies dyspnea, Denies dyspnea on exertion, Denies orthopnea and Denies other (loss of consciousness) Resp Denies cough, Denies dyspnea and Denies dyspnea on exertion GI Denies hematochezia and Denies change in stool character Musc Denies abnormal gait, Denies muscle weakness, Denies numbness, Denies radiating pain into limb and Denies tingling Neuro Denies abnormal gait, Denies dizziness, Denies frequent falls, Denies numbness, Denies tingling and Denies weakness Endo Denies fatigue and Denies palpitations Physical Exam Vital Signs: Last Vital Signs Pulse 55 05/08/25 12:43 BP 128/72 05/08/25 12:43 Const General: cooperative, comfortable, no acute distress, alert, awake and poor hygiene Nutritional Appearance: obese Orientation/consciousness: patient oriented x3 Limitations: no limitations Neck Neck: Yes trachea midline, Yes supple and Yes no JVD Resp Effort & Inspection: normal respiratory effort Auscultation: clear to auscultation bilaterally Cardio Jugular venous distension: no JVD Rate: regular rate Rhythm: regular rhythm Heart sounds: S1 normal heart sound present, no click, no gallops, Murmur heart sound present systolic late, decrescendo, crescendo and soft, no rubs and Other heart sounds present (Soft S2) Skin General skin exam: no rashes or lesions noted Neuro General: patient oriented x3 and no focal motor deficits Extrem General: Yes no clubbing, cyanosis or edema Psych Appearance: grossly normal Office Procedures EKG Details: EKG shows sinus bradycardia with low-voltage QRS with poor R-wave progression most likely lead placement [id number], Complete Assessment & Plan Assessment & Plan (1) Aortic stenosis: Comment: Aortic stenosis which had versus moderate. No interventions required and not reason for heart failure. Code(s): I35.0 - Nonrheumatic aortic (valve) stenosis Category: Medical Plan: Aortic stenosis which clinically appears to be severe. Will obtain echocardiogram near future. This will guide further treatment. If she does have severe aortic stenosis with will need to pursue further discussions about aortic valve replacement as her symptoms are difficult to a certain with limited exercise capacity. Given her age will also have to discuss whether she would be a candidate for transcatheter aortic valve replacement. Further treatment based on finding of the same. Continue low-dose aspirin therapy. Continue aggressive risk factor modification with goal LDL less than 70 mg/dL. Blood pressure is currently well optimized and she is at home the blood pressure is well optimized. Diabetes not well optimized and she is working on it with better diet and weight control. (2) (HFpEF) heart failure with preserved ejection fraction: Code(s): I50.30 - Unspecified diastolic (congestive) heart failure Category: Medical Qualifiers: Heart failure chronicity: chronic Qualified Code(s): I50.32 - Chronic diastolic (congestive) heart failure Plan: Prior history of heart failure with preserved ejection fraction currently on high-dose diuretic therapy. Clinically appears to be euvolemic well compensated. Leg edema below knee appears to be more dependent edema. No other heart failure symptoms. Continue daily weight monitoring avoidance salt loading. Continue CPAP therapy. Continue current aggressive blood pressure control which is well optimized. Follow up in the clinic in 2 months time, sooner p.r.n.. Thank you for allowing me to partake in her care Coding Level of Care Code Est Pt Level 4 (23232) Complex EM visit Add On G2211 Diagnoses Aortic stenosis I35.0 Chronic heart failure with preserved ejection fraction I50.32 Heart failure chronicity: chronic CPT Codes EKG - CPT: [id number], Complete ([id number])
[2025-05-08 12:43] VITALS: BP 128/72; PULSE 55
== END 2025-05-08 13:04 | disposition home or self-care (01) ==
LOC: HO.HCS 12:35
PROVIDERS: PCP Student in an Organized Health Care Education/Training Program; Visit Provider Internal Medicine Cardiovascular Disease
DX: I35.0 Nonrheumatic aortic (valve) stenosis (principal); I50.32 Chronic diastolic (congestive) heart failure
CPT/HCPCS: 93010; 99214; G2211

== ENCOUNTER → 2025-05-08 12:35 | Outpatient (BNVA) | payer MEDICARE, SELFPAY | PROVIDERS: PCP Student in an Organized Health Care Education/Training Program; Visit Provider Internal Medicine Cardiovascular Disease | DX: I35.0 Nonrheumatic aortic (valve) stenosis (principal); I50.32 Chronic diastolic (congestive) heart failure | CPT/HCPCS: 93005; 99212 ==

== ENCOUNTER → 2025-07-06 09:11 | Outpatient (REF) | payer MEDICARE, SELFPAY ==
--- OUTSIDE RECORDS SUMMARY | 2025-07-05 04:33 | XMS_ITS | Continuity of Care Document ---
Author Organization [facility] Address [address] [address] Phone Care Team Providers Care Synthetic Plasterer Name Role Phone Bruce CLINICAL PHLEBOTOMIST, Yudith Unavailable Unavailab le Allergies, Adverse Reactions, Alerts Substance Reaction Status Criticality lisinopril Active No Information Medications Medication Instructions Dosage Effective Dates (start - stop) Status Comments Mounjaro 10 mg/0.5 mL subcutaneous pen injector Inject 10mg SQ once weekly on the same day. - Active 07/03/25: Increasing dose. Humalog KwikPen (U-100) Insulin 100 unit/mL subcutaneous SE Program order: Inject per sliding scale SQ before lunch on day program days. Less than 100= None, 101-150= 10 units, 151-200= 12 units, 201-250= 14 units, 251-300= 16 units, 301-350= 18 units, Over 350= 20 units. - Active Send to [facility] Humalog KwikPen (U-100) Insulin 100 unit/mL subcutaneous Inject by SQ 3 times daily with food. Less than 100= None, 101-150= 10 units, 151-200= 12 units, 201-250= 14 units, 251-300= 16 units, 301-350= 18 units, Over 350= 20 units. - Active 07/03/25: Dose decrease. ezetimibe 10 mg tablet Take 1 tablet by mouth once daily. - Active Per pre-enrollment. isosorbide mononitrate ER 30 mg tablet,extended release 24 hr Take 1 tablet by mouth once daily in the morning. - Active Per pre-enrollment. metoprolol succinate ER 100 mg tablet,extended release 24 hr Take 1 tablet once daily. - Active Per pre-enrollment rosuvastatin 40 mg tablet Take 1 tablet by mouth once daily. - Active Per pre-enrollment. spironolactone 25 mg tablet Take 1 tablet by mouth once daily. - Active Per pre-enrollment. Pen Needle 31 gauge x 16 Use to inject insulin 4 times daily. - Active guaifenesin 400 mg tablet Take 1 tablet by oral route every 4 hours as needed. - Active New medicine, send yumiko glucose 4 gram chewable tablet Take 3-4 tablets by mouth NEEDED if blood sugar is less than 70mg/dL. Recheck blood sugar 15 minutes after. - Active lidocaine 4 % topical patch Apply 1 patch topically to the right hip NEEDED for pain. Remove after 12 hours. - Active Please send more Lantus Solostar U-100 Insulin 100 unit/mL (3 mL) subcutaneous pen Inject 45 units SQ daily at bedtime - Active 06/15/25: Dose reduction. cranberry extract 425 mg capsule Take 1 capsule by mouth once daily. - Active Per pharmacy request, changing from 500mg to 425mg. aspirin 81 mg chewable tablet Chew 1 tablet by mouth once daily. - Active Per pre-enrollment. Daily Multivitamin-Minerals tablet Take 1 tablet by mouth once daily. - Active In place of Ceravite. furosemide 40 mg tablet Take 1 tablet by mouth once daily. - Active Per [facility] discharge 02/10 Vitamin D3 25 mcg (1,000 unit) capsule Take 1 capsule by mouth once daily. - Active Per pre-enrollment. tramadol 50 mg tablet Take 1 tablet by mouth once daily NEEDED for pain. - Active MassPat checked , last filled 05/01/25. escitalopram 20 mg tablet take 1 tablet by oral route every day 20 MG - Active Dose increased gabapentin 300 mg capsule Take 2 capsules by mouth once daily at bedtime. - Active 04/27/25: Dose increase. Voltaren Arthritis Pain 1 % topical gel apply 2 gram by topical route 4 times every day to the right hip - Active acetaminophen 500 mg tablet Take 2 tablets by mouth 3 times daily. - Active levothyroxine 125 mcg tablet Take 1 tablet by mouth once daily. - Active FreeStyle Phil 3 Sartell Use for continuous glucose monitoring. Change sensor every 14 days. - Active FreeStyle Phil 3 Plus Sensor device Use for continuous glucose monitoring. Change sensor every 14 days. - Active Advance Directives Directive Yes / No Effective Date File Name No Information Encounters Encounter Description Practice Location Reason(s) For Visit Diagnoses Date Provider [facility], 1 [facility] [address], [id number], tel:[phone] [place] No Information 5 Pitsiladis Yudith. [address] [place], [place], [id number], [place]. tel:[phone] [facility], 1 [facility] [employer] [address] [place] [address], [id number], [place] tel:[phone] [place] Acute Visit (chief complaint) Viral upper respiratory illness Sep-2 5 Pitsiladis Yudith. [address] [facility] [place] [place], [id number], [place]. tel:[phone] [facility], 1 [facility] [place], [place], [id number], [place] tel:[phone] [place] No Information Sep-2 5 Pitsiladis Yudith. [address] [facility] [place], [id number], [place]. tel:[phone] [facility], 1 [facility] [employer] [place] [address] [place] [address], [id number], [place] tel:[phone] [place] Muscle weakness (generalized) Sep-2 5 Arely Rin. [address] [place], [place], [id number], [place]. tel:[phone] [facility], [address], [place], [place], [id number], [place] tel:[phone] [place] Muscle weakness (generalized) Sep-2 5 Arely Rin. [address] [facility] [address], [place], [place], [id number], [place]. tel:[phone] [facility], 1 [facility] [address], [place], [place], [id number], [place] tel:[phone] [place] No Information Sep-2 5 Pitsiladis Yudith. [address] [facility] [address] [place], [id number], [place]. tel:[phone] [facility], [address], [place], [place], [id number], [place] tel:[phone] [place] Difficulty in walkin g, not elsewhere classified Sep-2 5 Vikki Ryan. [address], [place], [address]. tel:[phone] [facility], [address], [place], [place], [id number], [place] tel:[phone] [place] Other chronic pain Sep-2 5 Vikki Ryan. [address], [place], [address]. tel:[phone] [facility], [address], [place], [place], [id number], [place] tel:[phone] [place] Other chronic pain Sep-1 5 Vikki Ryan. [address], [place], [address]. tel:[phone] [facility] [address], [place], [place], [id number], [place] tel:[phone] [place] No Information Sep-1 5 Pitsiladis Yudith. [address] [place], [place], [id number], [place]. tel:[phone] [facility], [address], [place], [place], [id number], [place] tel:[phone] [place] No Information Sep-1 5 Pitsdorys Zurita. [address] [place], [place], [id number], [place]. tel:[phone] [facility], [facility] [place], [place], [id number], [place] tel:[phone] [place] Other chronic pain Sep-1 5 Vikki Ryan. [address] [place], [address]. tel:[phone] [facility], [facility]note 3[facility] [place], [place], [id number], [place] tel:[phone] [place] Muscle weakness (generalized) Sep- 5 Arely Rin. [address] [place], [place], [id number], [place]. tel:[phone] [facility], [facility]note 3[facility] [place], [place], [id number], [place] tel:[phone] [place] Muscle weakness (generalized) Sep-1 5 Arely Rin. [address] [place], [place], [id number], [place]. tel:[phone] [facility], 1 [facility] [address] [facility]note 3], [place], [place], [id number], [place] tel:[phone] [place] Semi-Annual (chief complaint) Generalized anxiety disorderDepression, unspecified depression typeHypertensive heart and chronic kidney disease with heart failureChronic heart failure with preserved ejection fraction (HFpEF)Nonrheumatic aortic valve stenosisHyperlipidemia, unspecified hyperlipidemia typeType 2 diabetes mellitus with hyperglycemia, with long-term current use of insulinLong term (current) use of insulinType 2 diabetes mellitus with diabetic neuropathy, with long-term current use of insulinType 2 diabetes mellitus with stage 3a chronic kidney disease, with long-term current use of insulinChronic kidney disease, stage 3aType 2 diabetes mellitus with microalbuminuriaProtein uria, unspecifiedType 2 diabetes mellitus with periodontal disease, with long-term current use of insulinHypothyroidism, unspecified typeMorbid obesityBody mass index [BMI] 50.0-59.9, adultLong-term (current) use of injectable non-insulin antidiabetic drugsGeneralized osteoarthritis Sep-1 5 Pitsiladis Yudith. [address], [place], [id number], [place]. tel:[phone] [facility], [address] [facility] [address], [place], [place], [id number], [place] tel:[phone] [place] Other chronic painDifficulty in walking, not elsewhere classified Sep-1 - 5 Vikki Ryan. [address], [place], [address]. tel:[phone] [facility], 1 [facility] [address], [place], [place], [id number], [place] tel:[phone] [place] No Information Sep-1 5 Pitsiladis Yudith. [address], [place], [place], [id number], [place]. tel:[phone] [facility], 1 [facility] [address] [facility]note 3], [place], [place], [id number], [place] tel:[phone] [place] Muscle weakness (generalized) Sep-1 5 Arely Gar. [address], [place], [place], [id number], [place]. tel:[phone] [facility], 1 [facility] [address] [facility]note 3], [place], [place], [id number], [place] tel:[phone] [place] Type 2 diabetes mellitus with hypoglycemia without coma, with long-term current use of insulinLong term (current) use of insulin Sep-1 5 Pitsiladis Yudith. [address], [place], [id number], [place]. tel:[phone] [facility], 1 [facility] [address], [place], [place], [id number], [place] tel:[phone] [place] Morbid obesity Sep-1 0-202 5 Pitsiladis Yudith. [address] [place], [place], [id number], [place]. tel:[phone] [facility], [address] [facility]note 3[facility] [place], [place], [id number], [place] tel:[phone] [place] Other chronic painDifficulty in walking, not elsewhere classified Sep-1 0-202 5 Vikki Ryan. [address] [place], [address]. tel:[phone] [facility], [address], [place], [place], [id number], [place] tel:[phone] [place] Muscle weakness (generalized) Sep-0 8-202 5 Arely Rin. [address] [place], [place], [id number], [place]. tel:[phone] [facility], [facility] [address] [facility]note 3], [place], [place], [id number], [place] tel:[phone] [place] Muscle weakness (generalized) Sep-0 5-202 5 Arely Rin. [address] [place], [place], [id number], [place]. tel:[phone] [facility], [address] [facility]note 3], [place], [place], [id number], [place] tel:[phone] [place] Difficulty in walkin g, not elsewhere classifiedOther chronic pain Sep-0 5-202 5 Vikki Ryan. [address], [place], [address]. tel:[phone] [facility], [address], [place], [place], [id number], [place] tel:[phone] [place] No Information Sep-0 5-202 5 Pitsiladis Yudith. [address] [place], [place], [id number], [place]. tel:[phone] [facility], [address], [place], [place], [id number], [place] tel:[phone] [place] Muscle weakness (generalized) Sep-0 3-202 5 Arely Rin. [address] [place], [place], [id number], [place]. tel:[phone] [facility], [address], [place], [place], [id number], [place] tel:[phone] [place] Difficulty in walkin g, not elsewhere classifiedOther chronic pain 5 Vikki Ryan. [address] [place], [address]. tel:[phone] [facility], [address], [place], [place], [id number], [place] tel:[phone] [place] Encounter for rehabilitation evaluation 5 [facility] Rin. [address] [place], [place], [id number], [place]. tel:[phone] [facility], [address], [place], [place], [id number], [place] tel:[phone] [place] Muscle weakness (generalized) 5 Arely Rin. [address] [place], [place], [address], [place]. tel:[phone] [facility], [address], [place], [place], [id number], [place] tel:[phone] [place] Difficulty in walkin g, not elsewhere classified 5 Vikki Ryan. [address], [place], [address]. tel:[phone] [facility], [address], [place], [place], [id number], [place] tel:[phone] [place] Muscle weakness (generalized) 5 Theroux Kiana. [address] [place], [address]. tel:[phone] [facility], [address], [place], [place], [id number], [place] tel:[phone] [place] Other chronic painDifficulty in walking, not elsewhere classified 5 Vikki Ryan. [address] [place], [address]. tel:[phone] [facility], [address], [place], [place], [id number], [place] tel:[phone] [place] Other chronic pain 5 Vikki Ryan. [address] [place], [address]. tel:[phone] [facility], [address] [facility] [facility] [address], [place], [place], [id number], [place] tel:[phone] [place] Muscle weakness (generalized) 5 Arely Gar. [address] [place], [place], [address], [place]. tel:[phone] [facility], 1 [facility] [address] [facility]note 3], [place], [place], [id number], [place] tel:[phone] [place] Difficulty in walkin g, not elsewhere classifiedOther chronic pain 5 Vikki Ryan. [address], [place], [address]. tel:[phone] [facility], [address], [place], [place], [id number], [place] tel:[phone] [place] Other chronic painMuscle weakness (generalized) 5 Arely Gar. [address], [place], [place], [address], [place]. tel:[phone] [facility], [address] [facility] [address], [place], [place], [id number], [place] tel:[phone] [place] Type 2 diabetes mellitus with hyperglycemia, with long-term current use of insulinLong term (current) use of insulin 5 Bruce Zurita. [address], [place], [place], [id number], [place]. tel:[phone] [facility], [address] [facility] [address], [place], [place], [id number], [place] tel:[phone] [place] No Information May- 5 Pitsiladis Yudith. [address] [place], [place], [id number], [place]. tel:[phone] [facility], [address], [place], [place], [id number], [place] tel:[phone] [place] Other chronic pain May- 5 Vikki Ryan. [address] [place], [address]. tel:[phone] [facility], [address], [place], [place], [id number], [place] tel:[phone] [place] Muscle weakness (generalized)Other chronic pain 5 Arely Rin. [address] [place], [place], [id number], [place]. tel:[phone] [facility], [address], [place], [place], [id number], [place] tel:[phone] [place] Other chronic painMuscle weakness (generalized) 5 Arely Rin. [address] [place], [place], [address], [place]. tel:[phone] [facility], [address], [place], [place], [id number], [place] tel:[phone] [place] Other chronic painDifficulty in walking, not elsewhere classified 5 Vikki Ryan. [address] [place], [address]. tel:[phone] [facility], [address], [place], [place], [id number], [place] tel:[phone] [place] Difficulty in walkin g, not elsewhere classified 5 Vikki Ryan. [address] [place], [address]. tel:[phone] [facility], [address], [place], [place], [id number], [place] tel:[phone] [place] Follow-up (chief complaint) Generalized anxiety disorderType 2 diabetes mellitus with hyperglycemia, with long-term current use of insulinLong term (current) use of insulinDepression, unspecified depression typeGeneralized osteoarthritis Aug-0 5 Pitsiladis Yudith. [address] [facility] [place], [id number], [place]. tel:[phone] [facility], 1 [facility] [address], [place], [place], [id number], [place] tel:[phone] [place] Follow-up (chief complaint) No Information Aug-0 5 Teo Mahmood. [address] [place], [place], [id number], [place]. tel:[phone] [facility], 1 [facility] [address] [facility][note 3], [place], [place], [id number], [place] tel:[phone] [place] Muscle weakness (generalized) Aug-0 5 Arely Rin. [address] [facility] [place], [id number], [place]. tel:[phone] [facility], 1 [facility] [address] [facility][note 3], [place], [place], [id number], [place] tel:[phone] [place] Muscle weakness (generalized) Aug-0 5 Arely Rin. [address] [facility] [place], [address], [place]. tel:[phone] [facility], 1 [facility] [address], [place], [place], [id number], [place] tel:[phone] [place] Pain in joint of lef t shoulder Aug-0 5 Arely Rin. [address] [facility] [place], [address], [place]. tel:[phone] [facility], 1 [facility] [address], [place], [place], [id number], [place] tel:[phone] [place] Follow-up (chief complaint) Acute UTIGeneralized osteoarthritis Aug-0 5 Teo Mahmood. [address], [place], [place], [id number], [place]. tel:[phone] [facility], [address], [place], [place], [address], [place] tel:[phone] [place] Muscle weakness (generalized) 5 Arelyrené Gar. [address], [place], [place], [id number], [place]. tel:[phone] [facility], 1 [facility] [address], [place], [place], [id number], [place] tel:[phone] [place] Encounter for rehabilitation evaluation 5 Arely Abbasiah. [address] [place], [place], [id number], [place]. tel:[phone] [facility], 1 [facility] [address], [place], [place], [id number], [place] tel:[phone] [place] No Information 5 Pitsiladis Yudith. [address] [place], [place], [address], [place]. tel:[phone] [facility], [address], [place], [place], [id number], [place] tel:[phone] [place] Acute Visit (chief complaint) Type 2 diabetes mellitus with hyperglycemia, with long-term current use of insulinLong term (current) use of insulinGeneralized osteoarthritis 5 Pitsiladis Yudith. [address], [place], [place], [id number], [place]. tel:[phone] [facility], 1 [facility] [address], [place], [place], [id number], [place] tel:[phone] [place] Muscle weakness (generalized) 5 Arely Gar. [address], [place], [place], [address], [place]. tel:[phone] [facility], [address] [facility] [address], [place], [place], [id number], [place] tel:[phone] [place] Muscle weakness (generalized) Mar- 5 Arely Rin. [address], [place], [address], [place]. tel:[phone] [facility], 1 [facility] [address] [facility][note 3], [place], [place], [id number], [place] tel:[phone] [place] Muscle weakness (generalized) Mar- 5 Arely Rin. [address], [place], [place], [address], [place]. tel:[phone] [facility], 1 [facility] [address], [place], [place], [address], [place] tel:[phone] [place] Difficulty in walkin g, not elsewhere classified 5 Vikki Ryan. [address], [place], [address]. tel:[phone] [facility], 1 [facility] [address] [facility][note 3], [place], [place], [id number], [place] tel:[phone] [place] Muscle weakness (generalized) 5 Arely Rin. [address], [place], [place], [address], [place]. tel:[phone] [facility], 1 [facility] [address] [facility][note 3], [place], [place], [id number], [place] tel:[phone] [place] Other chronic pain Mar- 5 Vikki Ryan. [address] [place], [address]. tel:[phone] [facility], 1 [facility] [address] [facility][note 3], [place], [place], [id number], [place] tel:[phone] [place] Muscle weakness (generalized) Mar-0 5 Arely Rin. [address], [place], [address], [place]. tel:[phone] [facility], [address], [place], [place], [address], [place] tel:[phone] [place] Other chronic pain Celio-0 9-202 5 Vikki Ryan. [address], [place], [address]. tel:[phone] [facility], [facility] [address], [place], [place], [id number], [place] tel:[phone] [place] Acute UTI Celio-0 9-202 5 Pitsiladis Yudith. [address], [place], [place], [address], [place]. tel:[phone] [facility], 1 [facility] [address], [place], [place], [id number], [place] tel:[phone] [place] Generalized osteoarthritis Celio-0 6-202 5 Arely Gar. [address], [place], [place], [address], [place]. tel:[phone] [facility], [address] [facility] [address], [place], [place], [id number], [place] tel:[phone] [place] Alteration in performance of activities of daily livingDifficulty in walking, not elsewhere classified Celio-0 5-202 5 Devora Medellin. [address] [facility] [address] [place], [place], [address]. tel:[phone] [facility], [address], [place], [place], [id number], [place] tel:[phone] [place] Other chronic pain Celio-0 4-202 5 Vikki Ryan. [address], [place], [address]. tel:[phone] [facility], [address], [place], [place], [id number], [place] tel:[phone] [place] Muscle weakness (generalized) Celio-0 2-202 5 Arely Gar. [address], [place], [place], [id number], [place]. tel:[phone] [facility], [address], [place], [place], [address], [place] tel:[phone] [place] Other chronic pain Celio-0 2-202 5 Vikki Ryan. [address], [place], [address]. tel:[phone] [facility], [address] [facility] [address], [place], [place], [id number], [place] tel:[phone] [place] Muscle weakness (generalized) February-3 0-202 5 Arely Rin. [address], [place], [id number], [place]. tel:[phone] [facility], [address], [place], [place], [id number], [place] tel:[phone] [place] Other chronic pain February-3 0 5 Vikki Ryan. [address], [place], [address]. tel:[phone] [facility], [address] [facility], [place], [place], [id number], [place] tel:[phone] [place] Encounter for rehabilitation evaluation 5 Arely Rin. [address], [place], [id number], [place]. tel:[phone] [facility], [address] [facility], [place], [place], [id number], [place] tel:[phone] [place] Other chronic pain 5 Vikki Ryan. [address], [place], [address]. tel:[phone] [facility], [address], [place], [place], [id number], [place] tel:[phone] [place] Muscle weakness (generalized) 5 Arely Rin. [address] [place], [place], [address], [place]. tel:[phone] [facility], [address] [facility]note 3[facility] [place], [place], [id number], [place] tel:[phone] [place] Muscle weakness (generalized)Primary generalized (osteo)arthritis 5 Arely Gar. [address] [facility] [address], [place], [place], [address], [place]. tel:[phone] [facility], [facility]note 3], [place], [place], [id number], [place] tel:[phone] [place] Difficulty in walkin g, not elsewhere classifiedAlteration in performance of activities of daily livingOther lack of coordination 5 Devora Abbasiah Beth. [address] [facility] [place], [place], [id number]. tel:[phone] [facility], [facility]note 3], [place], [place], [id number], [place] tel:[phone] [place] Follow-up (chief complaint) Postmenopausal bleedingHypertensive heart and chronic kidney disease with heart failureChronic heart failure with preserved ejection fractionStage 3a chronic kidney diseaseType 2 diabetes mellitus with hyperglycemia, with long-term current use of insulinLong term (current) use of insulinGeneralized osteoarthritis 5 Pitsiladis Yudith. [address] [facility] [place], [id number], [place]. tel:[phone] [facility], [facility]note 3], [place], [place], [id number], [place] tel:[phone] [place] Muscle weakness (generalized)Other chronic pain 5 Vikki Ryan. [address] [facility] [address], [place], [address]. tel:[phone] [facility], 1 [facility] [address] [facility][note 3], [place], [place], [id number], [place] tel:[phone] [place] Nonrheumatic aortic (valve) stenosis 5 Pitsiladis Yudith. [address], [place], [place], [id number], [place]. tel:[phone] [facility], [address], [place], [place], [id number], [place] tel:[phone] [place] Muscle weakness (generalized) 5 Arely Abbasiah. [address], [place], [place], [id number], [place]. tel:[phone] [facility], [address], [place], [place], [id number], [place] tel:[phone] [place] Follow-up (chief complaint) Hypertensive heart and chronic kidney disease with heart failureChronic heart failure with preserved ejection fractionStage 3a chronic kidney disease 5 Bruce Zurita. [address], [place], [place], [id number], [place]. tel:[phone] [facility], [address], [place], [place], [id number], [place] tel:[phone] [place] Muscle weakness (generalized) 5 Arely Gar. [address], [place], [place], [id number], [place]. tel:[phone] [facility], [address], [place], [place], [id number], [place] tel:[phone] [place] [facility] Evaluation (chief complaint) Hypertensive heart and chronic kidney disease with heart failureChronic heart failure with preserved ejection fractionStage 3a chronic kidney disease 5 Teo Mahmood. [address], [place], [place], [id number], [place]. tel:[phone] [facility], [address], [place], [place], [id number], [place] tel:[phone] [place] Other chronic painDifficulty in walking, not elsewhere classified 5 Vikki Davis. [address], [place], [address]. tel:[phone] [facility], [address], [place], [place], [id number], [place] tel:[phone] [place] Encounter for rehabilitation evaluation 5 Arely Abbasiah. [address] [place], [place], [id number], [place]. tel:[phone] [facility], 1 [facility] [address] [facility][note 3], [place], [place], [id number], [place] tel:[phone] [place] Difficulty in walkin g, not elsewhere classified 5 Vikki Ryan. [address] [place], [address]. tel:[phone] [facility], 1 [facility] [address] [facility][note 3], [place], [place], [id number], [place] tel:[phone] [place] [facility] Admit (chief complaint) Hypertensive heart and chronic kidney disease with heart failureNonrheumatic aortic valve stenosisPostmenopausal bleedingLeft leg cellulitisType 2 diabetes mellitus with diabetic neuropathy, with long-term current use of insulinLong term (current) use of insulinType 2 diabetes mellitus with hyperglycemia, with long-term current use of insulinLong-term (current) use of injectable non-insulin antidiabetic drugsStage 3a chronic kidney diseaseGeneralized osteoarthritisAcute on chronic heart failure with preserved ejection fraction 5 Bruce Zurita. [address] [place], [place], [id number], [place]. tel:[phone] [facility], 1 [facility] [address] [facility][note 3], [place], [place], [id number], [place] tel:[phone] [place] No Information 5 Niraj Murillo. [facility] [place], [place], [id number], [place]. tel:[phone] [facility], 1 [facility] [address] [facility][note 3], [place], [place], [id number], [place] tel:[phone] [place] Difficulty in walkin g, not elsewhere classified 5 Vikki Ryan. [address] [place], [address]. tel:[phone] [facility], [address], [place], [place], [id number], [place] tel:[phone] [place] Type 2 diabetes mellitus with periodontal disease, with long-term current use of insulinLong term (current) use of insulin May-0 2-202 5 Pitsiladis Yudith. [address], [place], [id number], [place]. tel:[phone] [facility], [address], [place], [place], [id number], [place] tel:[phone] [place] Other chronic pain Apr-3 0-202 5 Vikki Ryan. [address] [place], [address]. tel:[phone] [facility], [address], [place], [place], [id number], [place] tel:[phone] [place] Other chronic pain Apr-2 8-202 5 Vikki Ryan. [address], [place], [address]. tel:[phone] [facility], [address], [place], [place], [id number], [place] tel:[phone] [place] Other chronic pain Apr-2 3-202 5 Vikki Ryan. [address], [place], [address]. tel:[phone] [facility], [address], [place], [place], [id number], [place] tel:[phone] [place] Other chronic pain Apr-2 1-202 5 Vikki Ryan. [address], [place], [address]. tel:[phone] [facility], [address], [place], [place], [id number], [place] tel:[phone] [place] Other chronic pain Apr-1 6-202 5 Vikki Ryan. [address], [place], [address]. tel:[phone] [facility], [address], [place], [place], [id number], [place] tel:[phone] [place] No Information Jan- 5 Pitsiladis Yudith. [address] [place], [place], [id number], [place]. tel:[phone] [facility], 1 [facility] [address], [place], [place], [id number], [place] tel:[phone] [place] Difficulty in walkin g, not elsewhere classified Apr- 5 Vikki Ryan. [address], [place], [address]. tel:[phone] [facility], 1 [facility] [address] [facility][note 3], [place], [place], [id number], [place] tel:[phone] [place] Other chronic pain Jan- 5 Vikki Ryan. [address], [place], [address]. tel:[phone] [facility], [facility] [address], [place], [place], [id number], [place] tel:[phone] [place] Other chronic pain Apr-0 5 Vikki Ryan. [address], [place], [address]. tel:[phone] [facility], [address], [place], [place], [id number], [place] tel:[phone] [place] Semi-Annual (chief complaint) Other visual disturbancesGeneralized anxiety disorderHypertensive heart and chronic kidney disease with heart failureChronic heart failure with preserved ejection fraction (HFpEF)Hyperlipidemia, unspecified hyperlipidemia typeType 2 diabetes mellitus with stage 3a chronic kidney disease, with long-term current use of insulinChronic kidney disease, stage 3aType 2 diabetes mellitus with hyperglycemia, with long-term current use of insulinLong-term (current) use of injectable non-insulin antidiabetic drugsType 2 diabetes mellitus with diabetic neuropathy, with long-term current use of insulinType 2 diabetes mellitus with microalbuminuriaProtein uria, unspecifiedLong-term insulin useHypothyroidism, unspecified typeMorbid obesityBody mass index (BMI) of 40.1 to 44.9 in adult Apr-0 8-202 5 Pitsiladis Yudith. [address] [place], [place], [id number], [place]. tel:[phone] [facility], [address], [place], [place], [id number], [place] tel:[phone] [place] Other chronic pain Apr-0 7-202 5 Vikki Ryan. [address] [place], [address]. tel:[phone] [facility], [address], [place], [place], [id number], [place] tel:[phone] [place] Muscle weakness (generalized)Other chronic pain Apr-0 2-202 5 Vikki Ryan. [address] [place], [address]. tel:[phone] [facility], [address] [facility], [place], [place], [id number], [place] tel:[phone] [place] Other chronic pain Mar-3 1-202 5 Vikki Ryan. [address], [place], [address]. tel:[phone] [facility], [address], [place], [place], [id number], [place] tel:[phone] [place] Unilateral primary osteoarthritis, right hip Mar-2 8-202 5 Pitsiladis Yudith. [address] [place], [place], [id number], [place]. tel:[phone] [facility], [address], [place], [place], [id number], [place] tel:[phone] [place] Other chronic pain Mar-2 6-202 5 Vikki Ryan. [address] [place], [address]. tel:[phone] [facility], [address], [place], [place], [id number], [place] tel:[phone] [place] Other chronic pain Mar-2 4-202 5 Vikki Ryan. [address] [place], [address]. tel:[phone] [facility], [address], [place], [place], [id number], [place] tel:[phone] [place] Other chronic pain Dec- 5 Vikki Ryan. [address], [place], [address]. tel:[phone] [facility], [address], [place], [place], [id number], [place] tel:[phone] [place] Other chronic pain Dec- 5 Vikki Ryan. [address], [place], [address]. tel:[phone] [facility], [address], [place], [place], [id number], [place] tel:[phone] [place] Other chronic pain 5 Vikki Ryan. [address], [place], [address]. tel:[phone] [facility], [address], [place], [place], [id number], [place] tel:[phone] [place] Encounter for rehabilitation evaluation 5 Arely Gar. [address] [place], [place], [id number], [place]. tel:[phone] [facility], [address] [facility], [place], [place], [id number], [place] tel:[phone] [place] Difficulty in walkin g, not elsewhere classified Dec- 2- 5 Vikki Ryan. [address] [place], [address]. tel:[phone] [facility], [address], [place], [place], [id number], [place] tel:[phone] [place] Difficulty in walkin g, not elsewhere classified Dec-10 05- 5 Vikki Ryan. [address], [place], [address]. tel:[phone] [facility], [address] [address], [place], [place], [id number], [place] tel:[phone] [place] [facility] Follow-up (chief complaint) Generalized osteoarthritisAnxiety disorder, unspecified type Dec- 0-202 5 Hakeem Aqib. [address] [facility] [place], [address], [place]. tel:[phone] [facility], [address] [address], [place], [place], [address], [place] tel:[phone] [place] [facility] Admit (chief complaint) Type 2 diabetes mellitus with hyperglycemia, with long-term current use of insulinLong term (current) use of insulinType 2 diabetes mellitus with stage 3a chronic kidney disease, with long-term current use of insulinChronic kidney disease, stage 3aLong-term (current) use of injectable non-insulin antidiabetic drugsHypothyroidism, unspecified typeType 2 diabetes mellitus with diabetic neuropathy, with long-term current use of insulinAnxiety disorder, unspecified typeHypertensive heart and chronic kidney disease with heart failureChronic heart failure with preserved ejection fraction (HFpEF)Type 2 diabetes mellitus with microalbuminuriaProtein uria, unspecifiedBody mass index (BMI) of 40.1 to 44.9 in adultMorbid obesityHyperlipidemia, unspecified hyperlipidemia typeGeneralized osteoarthritis Dec-0 - 5 Pitsiladis Yudith. [address], [place], [id number], [place]. tel:[phone] [facility], [address] [address], [place], [place], [id number], [place] tel:[phone] [place] No Information Nov- 5 Pitsiladis Yudith. [address], [place], [id number], [place]. tel:[phone] [facility], [facility]note 3], [place], [place], [id number], [place] tel:[phone] [place] Acute UTI Nov- 5 Pitsiladis Yudith. [address], [place], [id number], [place]. tel:[phone] [facility], [address] [facility], [place], [place], [id number], [place] tel:[phone] [place] No Information 5 Pitsiladis Yudith. [address] [place], [place], [id number], [place]. tel:[phone] [facility], [address], [place], [place], [id number], [place] tel:[phone] [place] Type 2 diabetes mellitus with hypoglycemia without coma, with long-term current use of insulinLong term (current) use of insulin 5 Pitsiladis Yudith. [address], [place], [place], [address], [place]. tel:[phone] [facility], 1 [facility] [address] [facility][note 3], [place], [place], [id number], [place] tel:[phone] [place] Alteration in performance of activities of daily living 0- 4 Arely Rin. [address] [place], [place], [id number], [place]. tel:[phone] [facility], [address] [facility], [place], [place], [id number], [place] tel:[phone] [place] Other chronic pain 4 Vikki Ryan. [address], [place], [address]. tel:[phone] [facility], [address], [place], [place], [id number], [place] tel:[phone] [place] No Information 4 Pitsiladis Yudith. [address] [place], [place], [address], [place]. tel:[phone] [facility], [address] [facility], [place], [place], [address], [place] tel:[phone] [place] Difficulty in walkin g, not elsewhere classified Dec1 2 4 Vikki Ryna. [address] [place], [address]. tel:[phone] [facility], [address], [place], [place], [address], [place] tel:[phone] [place] Other chronic pain Dec-0 4 Vikki Ryan. [address] [place], [address]. tel:[phone] [facility], [address], [place], [place], [id number], [place] tel:[phone] [place] Difficulty in walkin g, not elsewhere classified Dec0 4 Vikki Ryan. [address] [place], [address]. tel:[phone] [facility], [address], [place], [place], [address], [place] tel:[phone] [place] Other chronic painDifficulty in walking, not elsewhere classified Dec-0 4 Vikki Ryan. [address] [place], [address]. tel:[phone] [facility], [address] [facility][note 3], [place], [place], [id number], [place] tel:[phone] [place] Follow-up (chief complaint) Type 2 diabetes mellitus with microalbuminuriaProtein uria, unspecifiedType 2 diabetes mellitus with hyperglycemia, with long-term current use of insulinLong term (current) use of insulinHypothyroidism, unspecified typeChronic heart failure with preserved ejection fraction (HFpEF)Hypertensive heart and chronic kidney disease with heart failureStage 3a chronic kidney diseaseGeneralized osteoarthritisChronic kidney disease due to diabetes mellitus Dec0 3 4 Pitsiladis Yudith. [address] [place], [place], [id number], [place]. tel:[phone] [facility], [address], [place], [place], [id number], [place] tel:[phone] [place] Other chronic painDifficulty in walking, not elsewhere classified Sep-0 4 Vikki Ryan. [address] [place], [address]. tel:[phone] [facility], [address], [place], [place], [id number], [place] tel:[phone] [place] Muscle weakness (generalized) 4 Vikki Ryan. [address] [place], [address]. tel:[phone] [facility], [address], [place], [place], [id number], [place] tel:[phone] [place] Muscle weakness (generalized)Other chronic pain Aug- 4 Vikki Ryan. [address] [place], [address]. tel:[phone] [facility], [address] [facility] [address], [place], [place], [id number], [place] tel:[phone] [place] Other visual disturbancesOther specified personal risk factors, not elsewhere classified 4 Pitsiladis Yudith. [address] [place], [place], [id number], [place]. tel:[phone] [facility], [address] [facility] [address], [place], [place], [address], [place] tel:[phone] [place] Muscle weakness (generalized)Other chronic pain 4 Vikki Ryan. [address] [place], [address]. tel:[phone] [facility], [address], [place], [place], [id number], [place] tel:[phone] [place] Muscle weakness (generalized) 4 Vikki Ryan. [address] [place], [address]. tel:[phone] [facility], [address], [place], [place], [address], [place] tel:[phone] [place] Encounter for nutritional assessmentDiabetic nutritional counseling completedClass 3 severe obesity with serious comorbidity and body mass index (BMI) of 40.0 to 44.9 in adult, unspecified obesity typeMorbid (severe) obesity due to excess caloriesBody mass index [BMI] 40.0-44.9, adult Nov- 4 Normile Valentine. [address], [place], [place], [address], [place]. tel:[phone] [facility], [address] [employer] [address] [facility][note 3], [place], [place], [id number], [place] tel:[phone] [place] Post Enrollment Evaluation (chief complaint) Type 2 diabetes mellitus with hyperglycemia, with long-term current use of insulinLong term (current) use of insulinLong-term (current) use of injectable non-insulin antidiabetic drugsType 2 diabetes mellitus with stage 3a chronic kidney disease, with long-term current use of insulinChronic kidney disease, stage 3aType 2 diabetes mellitus with microalbuminuriaProtein uria, unspecifiedAnxiety disorder, unspecified typeMorbid obesityBody mass index (BMI) of 40.1 to 44.9 in adultHyperlipidemia, unspecified hyperlipidemia typeType 2 diabetes mellitus with diabetic neuropathy, with long-term current use of insulinHypothyroidism, unspecified typeHypertensive kidney disease with stage 3a chronic kidney diseaseMitral valve stenosis, unspecified etiologyAortic valve stenosis, etiology of cardiac valve disease unspecifiedObstructive sleep apnea 4 Bruce Balderasissa. [address], [place], [place], [id number], [place]. tel:[phone] [facility], 1 [facility] [employer] [facility][note 3], [place], [place], [id number], [place] tel:[phone] [place] Encounter for rehabilitation evaluation 4 Arely Gar. [address], [place], [place], [address], [place]. tel:[phone] [facility], 1 [facility] [employer] [facility][note 3], [place], [place], [id number], [place] tel:[phone] [place] Difficulty in walkin g, not elsewhere classified 4 Vikki Davis. [address], [place], [address]. tel:[phone] [facility], [address] [facility] [address], [place], [place], [id number], [place] tel:[phone] No Information 4 Simone Yanez. [address] [place], [address], [place]. tel:[phone] Family History Family Member Type Diagnosis Age At Onset No Information Immunizations Vaccine Date Status Comments Fluzone High Dose administered Source: New Immunization Record Prevnar 20 administered Source: New Imm unization Record SPIKEVAX Moderna COVID-19 Vaccine 12y+ administered Source: Other Regist ry Fluzone High Dose 2023- administered So urce: New Immunization Record Flu-IIV4, p-free administered Source: Oth er Registry Flu-ccIIV4, p-free administered Source: O ther Registry COVID-19 Pfizer administered Source: Othe r Registry COVID-19 Pfizer unknown Source: Othe r Registry COVID-19 Pfizer unknown Source: Othe r Registry Flu-IIV4, p-free administered Source: Oth er Registry RZV (Shingrix) administered Source: Other Registry Flu-IIV3, p-free High Dose administered S ource: Other Registry RZV (Shingrix) administered Source: Other Registry Flu-IIV4, p-free unknown Source: Oth er Registry PPSV23 administered Source: Other R egistry Flu-IIV4, p-free unknown Source: Oth er Registry Tdap unknown Source: Other R egistry Payers Payer name Insurance type Covered libertarian ID Valentino aguillon(s) [address] [id number] [address] [id number] [address] [id number] [address] [address] [id number] Social History Type Description Quantity Date Captured Comments Sex Female Smoking Status No Information Sexual Orientation Straight or heterosexual Jun Gender Identity Female Vital Signs Date / Time: Height Weight BMI Pulse Rate Blood Pressure Temperature Respiratory Rate Body Surface Area Head Circumference Head Circ. Percentile Wt./Luke. Percentile BMI percentile Pulse Ox Inhaled Ox 1:31 PM 98.20 F 19 /min 97 % Chief Complaint And Reason For Visit No Information Plan Of Treatment Date Type Action Status Referral Ordered: Ophthalmology (related to Blurry vision) ordered Referral Ordered: Referrals: Ophthalmology. Evaluate and treat ordered Referral Ordered: Referrals: Dentistry. Evaluate and treat ordered Appointment Kati Szymanski Appointment Kati Szymanski Appointment Stephon Kati Appointment Kati Szymanski Appointment Stephon, Kati Appointment Kati Szymanski Appointment Stephon, Kati Appointment Stephon, Kati Appointment Stephon, Kati Appointment Stephon, Kati Appointment Kati Szymanski Appointment Stephon, Kati Appointment Stephon, Kati Appointment [place] Szymanski Appointment Stephon, Appointment [place] Szymanski Appointment Stephon, Kati Appointment Stephon, Kati Appointment [place] Szymanski Appointment [place] Szymanski Appointment Stephon, Kati Appointment Kati Szymanski Appointment Stephon, Kati Appointment Stephon, Kati Appointment [place] Szymanski Appointment Kati Szymanski Appointment Stephon, Appointment Stephon, Appointment Stephon, Appointment Stephon, Appointment Stephon, Appointment Stephon, Appointment Stephon, Appointment Stephon, Appointment Stephon, Appointment Stephon, Appointment Stephon, Appointment Stephon, Appointment Stephon, Kati Future Order: Lab Order BinaxNow COVID-19 Antigen Self test ([id number]), Ordered on: Ordered Future Order: Lab Order Strep A ([id number]), Ordered on: Ordered Future Order: Lab Order Urinalys is, Macroscopic ([id number]), Ordered on: Ordered Future Order: Radiology Order Pe lvis / Uterus Ultrasound (nonobstetric) (Transvaginal) ([id number]), Ordered on: Ordered History Of Present Illness Encounter Date Complaint History Of Prese nt Illness Acute Visit Kati is a 64 year old female who is seen today for an acute visit.Kati reports 2-3 days of productive cough, runny nose, general malaise, poor appetite, fatigue, sore throat. No shortness of breath, no N/V/D. No recent falls or injuries. She tells me she was sitting next to someone who was coughing when at day program last week and wonders if she got sick from them. On exam, + pallor, +flat affect. Oropharynx slightly erythematous with + post-nasal drip noted. Respirations unlabored, LSCTAB, RRR, abd SNT +BSx4. Strep and COVID swabs negative in clinic. Kati took her GLP-1 dose yesterday and now has a decreased appetite from both her illness and exacerbated by the GLP-1. We agreed to symptomatic management with increased fluids, advised to try protein shake if unable to take meal. She is already on scheduled Tylenol TID for her arthritis, and has a PRN guaifenesin. Semi-Annual Kati is a 64- year-old female who is seen today for a semi-annual visit. She enrolled in the [facility] program as of 08/05/2024. She comes to the visit by herself today. Allergies: Lisinopril (eyes got really swollen).Medications: She has no specific concerns with her medications today. We have been increasing her Mounjaro every 4 weeks with good effect and she is tolerating it well. Immunizations: UTD. She will be eligible for a Tdap in 09/2025. ER visits/Hospitalizations/SNF/Falls in the last 6 months: -To Hospital and then SNF 02/2025 due to heart failure exacerbation, functional decline.-04/29/25: To [facility] ER with pain r/t right hip OA. Advanced directives: -HCP: HCP on file dated 02/09/24 indicating her primary HCP is her sister Valentine Samaniego and secondary is her brother Tio Christie. -MOLST: MOLST completed 01/10/25 indicating she is a full code, yes to short-term intubation only, yes to dialysis, yes to artificial nutrition, yes to artificial hydration. Social: Kati lives at [facility]. She has been there since January 2024. She says she is from [place], [place] and has 3 children who are in the area. She does not smoke. She reports having a s mall amount of alcohol on Fridays. Vision: Kati reports some degree of blurry vision, and at night her eyes get tired and blurry. She denies any known history of retinopathy. She wears glasses mostly for small item activities such as her nilton art. She says she is due for ophthalmology follow up. Referral entered. Hearing: No hearing aids, no concerns. Dental: Kati has nisqually dentition intact. She reports doing daily brushing. She was seen by [facility] in 01/2025 with recommendation to be seen by oral surgeon for treatment and some extractions before returning for next steps at [facility]. She has not yet been seen by oral surgery (? No-showed in February). Podiatry: Nails are well trimmed. Not hypertrophic. She gets mild neuropathic pain in her feet with numbness and tingling. No history of wounds to feet or amputation. She continues on gabapentin. DEXA: She believes she had a DEXA done in the past but it was some time ago. She would like to continue with screening. DEXA ordered. Mammogram: Kati reports her last mammogram was several years ago. She would like to have this done. Her mom has a h/o breast cancer. Order entered. Colonoscopy: No prior; declines. Mobility: Kati is consistently using a walker or wheelchair. Last fall 12/2204 with worsening hip pain afterwards. + severe OA. Mind/Memory/MOCA: No concerns. No history of dementia. Last MOCA 08/2024. Skin: No concerns. Follow-up Kati was seen briefly today to discuss multiple concerns.Diabetes: Most recent A1c was 11.6%, up from 8.7% about 3 months ago. She has been making poor food choices, increased stress, and decreased activity. We discussed decreasing her portion size of high carb foods, avoiding any soda/juice (she was reportedly consuming this), increasing activity with rehab guidance. I have increased her Lantus to 48 units, Humalog scale to start with 10 units, and will switch from Trulicity to Mounjaro. Right hip osteoarthritis: Kati is in need of a right hip replacement. This was planned for next week however is now on hold due to her high A1c. Per ortho, needs to be less than 8%. Kati aware of this, reports pain manageable at present, and she will continue working with rehab.Left shoulder: More recent left shoulder pain. She will continue on her Tylenol, gabapentin, and PRN Tramadol. Lidocaine patch applied in day center today.Depression: Kati reports more recent depression symptoms coinciding with declines in her mental health. She would like to meet with a therapist. Our SW is aware and will meet with her for supportive visits and refer to LMHC if needed. Follow-up Patient with con firmed UTI. Abx was sent to the pharmacy. Follow-up Patient is here for pre-ob clearance. She is a 64 year old female with DMII, morbid obesity, and end stage hip arthritis, for which she was scheduled for a hip replacement. Today a new set of blood workup, UA and EKG was obtained. However, her recent A1c result came back indicating further elevation and worsening of hyperglycemia. Patient was already educated by her PCP about the fact that her high blood sugar is a serious obstacle in her way of getting hip replacement since it would decrease her healing rate and possibly put her at higher risk of infection and complication.As part of workup, UA was obtained that was (+), she admits having worsening of incontinence and nocturia x3.Physical ExamConstitutional: comfortable, no acute distressRespiratory: Normal lung sounds bilaterallyCardiovascular: S1 S2 regular.Gastrointestinal: Abdomen soft, non-tender, non-distended. Normal bowel sounds..Neurologic: Speech normal. No focal neurological deficits. Acute Visit Kati is a 64 year old female who is seen today for an acute visit for worsening right hip pain.Kati contacted our on-call provider overnight r/t increased severe right hip pain that was not relieved as it typically is, with her evening gabapentin dose. She got the okay from the on-call provider to take an extra dose of gabapentin thus she did, and also took her PRN Tylenol with good effect. We have agreed to increase her gabapentin dose to 600mg daily at bedtime going forward. I also encouraged her to take the PRN Tylenol more often when pain has increased.Discussed likely upcoming right total hip replacement, for which we will be getting labs and EKG. I am concerned that the ortho note indicates she can only get the surgery if A1c is less than 8%. Her blood sugars have been running high lately with her increased pain. Her prior A1c was 8.7%. I reviewed her Phil history and we will adjust insulin today to help offset the higher numbers. Follow-up Kati is a 64 year old female who is seen today for a follow up visit. She was last seen by myself 3 days ago. Kati reports feeling much better over the last few days. Her edema has decreased further. No SOB/CP/cough. She reports sleeping well last evening. Eating well, taking fluids. She does tell me that she had a small amount of vaginal bleeding this morning. She is scheduled for an upcoming transvaginal ultrasound. She will report any further episodes. Kati's blood sugar was elevated yesterday at which point we increased her Lantus to 22 units. This morning she was 238 on her sensor, and is now over 400 during our visit. No recent steroids, steroid injections, no changes in diet, not drinking any juice/regular soda. We will increase her Lantus to 26 units daily and Humalog sliding scale to 4 units for a blood sugar of 100-150mg/dL, increase by 2 units per 50mg/dL. Follow-up Kati is a 64 year old female who is seen today for a follow up visit. She was last seen by my colleague on 02/17/25 with concerns for worsening lower extremity edema. She was treated with increased an increased Lasix dose for the past 3 days including 02/17/25 received IM Lasix 40mg IM x1, metolazone 2.5mg PO x1, and her baseline dose of Lasix 40mg PO. Thursday and Thursday (02/18 and 02/19) she received Lasix 80mg BID. 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 She continues to have edema though has noticed some improvement. She reports a large amount of diuresis over the weekend, typically emptying 800cc-over 1000cc in the Shepherd 3-4 times daily. As of this morning she is back to Lasix 40mg daily. On my exam, Kati has 2+ pitting edema to bilateral lower extremities. No shortness of breath, no cough, no chest discomfort. LSCTAB. Weight is down only 1lb over the past 3 days however there are concerns that the initial weight may have been inaccurate. She is tearful in the office feeling frustrated with her health as of late. The plan today is to resume her baseline and newer Lasix use of 0mg daily. We will get labs including a pro-BNP (last measurement in the hospital was only 829 when the Lasix was started), and a CMP which will check renal function in the setting of large diuretic dosing over the past few days. The Shepherd was removed in the office today. She was encouraged to hydrate and monitor for output and to report if she is not urinating. She is a reliable historian and I trust that she will identify if this is a concern. Post Hospital Evaluation Seeing the patient on behalf of her PCP. Patient is here for severe LE +3 edema bilaterally. No SOB, SEAN, palpitation, CP. Admits dyspenea.Gained 20Ib in 10 days.PELungs CTA bilaterally CV regular HR, systolic murmurLE +3 pitting edemaAbd soft, non-tender, no mass, no bruit SNF Admit Kati is a 64 year old female who is seen this morning at [facility] for SNF admission.Kati arrived to [facility] on Thursday evening after a stay at [facility] for management of CHF exacerbation LLE cellulitis, and vaginal bleeding. Cardiac: Kati was seen by cardiology for CHF exacerbation. She underwent an echo showing normal LVEF of 55 to 60%, normal LV systolic function, no WMA's, moderate to severely calcified aortic valve, moderately decreased aortic valve leaflet opening, moderate to severe aortic stenosis, peak gradient of 50, mean gradient of 28, aortic valve area of 0.9 cm , mild MR, no significant change compared to 05/2024, as read by the designated broker.Cardiology advised oral diuretics at discharge Lasix 40mg daily, continue with aspirin, statin, beta jesse, aldactone. LLE cellulitis: Kati has completed a course of cephalexin. Edema and erythema has improved to both lower extremities. I see scattered markings from her scratching herself. She was 1-2+ bilateral pitting edema, which she says has been getting better. No fevers, no significant pain to either lower leg at present (she does have neuropathic pain that worsens at night however.We agreed to increase her gabapentin to 300mg daily at bedtime to help with overnight pain. Right hip pain: Kati has chronic right hip pain that tends to flare up. She is waiting on an ortho appointment that it reportedly scheduled for March. She is getting Tylenol, lidocaine patches, and we are increasing her gabapentin. She has noted some improvement with the decrease in her fluid overload.Vaginal bleeding: Kati experienced vaginal bleeding close to the tie of her discharge from the hospital. Her discharge was held briefly. H&H remained stable. Gynecology advised a transvaginal ultrasound however Kati was unable to tolerate that position nor for a vaginal exam due to her hip pain. This will be scheduled outpatient. Semi-Annual Kati is a 64- year-old female who is seen today for a semi-annual visit. She has enrolled in the PACE program as of 08/05/2024. She comes to the visit by herself today. Allergies: Lisinopril (eyes got really swollen).Medications: She has no specific concerns with her medications today. She is taking cranberry tabs recently due to concerns with UTI (recently treated). She would like to continue on the cranberry tabs which I think is reasonable and I will send a script. Immunizations: UTD. She will be eligible for a Tdap in 09/2025. ER visits/Hospitalizations/SNF/Falls in the last 6 months: -12/04/24-12/06/24: To ER after mechanical fall resulting in exacerbation of right hip pain. Discharged to [facility] where she stayed until 12/13/24 and then returned to [facility]. Advanced directives: -HCP: HCP on file dated 02/09/24 indicating her primary HCP is her sister Valentine Samaniego and secondary is her brother Tio Christie. -MOLST: MOLST completed 01/10/25 indicating she is a full code, yes to short-term intubation only, yes to dialysis, yes to artificial nutrition, yes to artificial hydration. Social: Kati lives at [facility]. She has been there since January 2024. She says she is from [place], [place] and has 3 children who are in the area. She does not smoke. She report having a s mall amount of alcohol on Fridays. Vision: Kati reports some degree of blurry vision, and at night her eyes get tired and blurry. She denies any known history of retinopathy. She wears glasses mostly for small item activities such as her nilton art. She says she is due for ophthalmology follow up. Referral entered. Hearing: No hearing aids, no concerns. Dental: Kati has nisqually dentition intact. She reports doing daily brushing. She has not seen a dentist in several years but is willing to see one for a cleaning. She is booked to see [facility] on 01/26/25. Podiatry: Nails are well trimmed. Not hypertrophic. She gets mild neuropathic pain in her feet with numbness and tingling. No history of wounds to feet or amputation. DEXA: She believes she had a DEXA done in the past but it was some time ago. She would like to continue with screening. DEXA ordered. Mammogram: Kati reports her last mammogram was several years ago. She would like to have this done. Her mom has a h/o breast cancer. Order entered. Colonoscopy: No prior, doesn't want one. Mobility: Kati is consistently using a walker. Last fall 12/2204 with worsening hip pain afterwards. + severe OA, pending ortho appt. Mind/Memory/MOCA: No concerns. She denies a history of dementia. Last MOCA 08/2024. Skin: No concerns. SNF Follow-up Kati is a 64 years old female who was seen for a follow up visit at the [facility]. Pt was initially brought to the ED after a fall and worse right hip pain. She had imaging done which ruled out a hip fracture. The fall did make the pain in her right hip worse and she was transferred to the SNF for rehab. SNF Admit Kati is a 64 year old female who is seen today for a SNF admission at [facility]. Kati has longstanding right hip OA. She had a mechanical fall on 12/05/23 resulting in acute worsening of right hip pain. She went to [facility] ER, note stating X-ray showed: Sclerotic band across the right femoral neck is concerning for a nondisplaced fracture. CT - did not show fracture, orthopedic recommended MRI of the right hip which only showed severe osteoarthritis and no fracture. Pain control with scheduled Tylenol. From an orthopedic point of view she can weight-bear as tolerated on the right lower extremity . She was discharged to rehab on 12/06/24. I saw Kati today late morning. She was tearful initially as she had been waiting some time to get to the bathroom. I was able to get assistance and Kati ambulating with a walker, contact guard, to the bathroom in her room, and then back to her chair. She had mild pain when doing so. She appeared steady. She says Tylenol has been effective in helping her pain. She is agreeable to switching the Tylenol to TID scheduling for now and she also feels a lidocaine patch to the right hip would be helpful. I gave these orders to nursing during my visit. Kati will be having formal OT/PT evals this afternoon and we will be waiting for their updates.We reviewed the changes to her insulin for now as she's likely been eating less since being in the hospital/rehab. We will keep the lowered insulin dosing for now and reevaluate based on her numbers. Follow-up Kati is a 64 year old female who is seen today for a post-enrollment follow up. She enrolled in [employer] as of 08/05/24. She comes to the visit by herself today.Hypothyroidism: At Kati's post-enrollment exam her labs showed a low TSH of 0.31 with a normal reflex FT4. We decreased her levothyroxine from 137mcg to 125mcg. She denies current symptoms. We will plan to repeat her labs in early October.Diabetes and hypertension: Kati's most recent HbA1c in 08/2024 was 7.5%, meeting goal of <7.5-8% but suggesting she likely has some hyperglycemia. I prescribed a Freestyle Phil 3 device for her last month. It requires prior authorization and therefore she has not yet started it. Nursing to follow up on this. She is checking her blood sugar 3 times daily. Reports nothing under 70mg/dL, occasionally in the 200s usually related to eating higher sugar/carbs. She does not have anything on hand to treat a low; I have sent for glucose tabs today and reviewed treatment with her. Her labs also showed a microalbuminuria of 108. She has an allergy listed to lisinopril. Her records show she used to be on Lasix as well as amlodipine but it was not found in her bubble packs. She reports occasional mild edema, is good about elevating. no edema today, no SOB, BP meeting goal, and weight is down 2lbs since last visit. no indication to restart Lasix or amlodipine today.Heart Failure: Kati confirms she has a long history of heart failure. She calls it congestive heart failure and says she was previously following with cardiology at [facility]. We discussed that last echo 05/2024 showed normalized EF 70-75%, aortic valve moderately calcified with moderate aortic stenosis, no aortic regurgitation. Unable to assess diastolic function due to mitral annular calcification. She remains on SGLT2 inhibitor and GLP-1 RA. Joint pain: Kati reports mild joint pain in recent weeks which she says is her arthritis that typically acts up around this time of year. No recent injuries or precipitating factors. We will trial PRN Tylenol for pain. Will avoid NSAIDs given CKD3. Post Enrollment Evaluation Nabil juan is a 64-year-old female who is seen today for a post-enrollment exam. She has enrolled in the PACE program as of 08/05/2024. She comes to the visit by herself today. Allergies: Lisinopril (eyes got really swollen).Medications: To be reconciled by nursing to confirm medications she has in her apartment. Immunizations: We are still trying to obtain her immunization records. ER visits/Hospitalizations/SNF/Falls in the last 6 months:-Seen at [facility] ER 05/29/24 with suprapubic pain, blood in brief, nausea; diagnosis of acute hemorrhagic cystitis. Prescribed Keflex and sent home. -[facility] ER 05/13/24 for dizziness. Discharged to home after reassuring workup. -[facility] 05/08-05/10/24: Presented after a fall, found to have UTI, syncope, ISAÍAS on CKD, and TSH was elevated at 24. -[facility] ER 04/04/24 for malaise r/t being out of medication x 3 days. Discharged to home after meeting with SW. -[facility] 03/22-03/24/24 for ISAÍAS, elevated troponin. Advanced directives: -HCP: HCP on file dated 02/09/24 indicating her primary HCP is her sister Valentine Samaniego and secondary is her brother Tio Christie. -MOLST: Kati believes she has a MOLST somewhere but cannot recall where. If we are unable to locate this in the paperwork Social: Kati lives at [facility]. She has been there since January 2024. She says she is from [place], [place] and has 3 children who are in the area. She does not smoke. She reports having a s mall amount of alcohol on Fridays. Vision: Kati reports some degree of blurry vision, and at night her eyes get tired and blurry. She denies any known history of retinopathy. She wears glasses mostly for small item activities such as her nilton art. She says she is due for ophthalmology follow up. Referral entered. Hearing: No hearing aids, no concerns. Dental: Kati has nisqually dentition intact. She reports doing daily brushing. She has not seen a dentist in several years but is willing to see one for a cleaning. Referral entered. Podiatry: Nails are well trimmed. Not hypertrophic. She gets mild neuropathic pain in her feet with numbness and tingling. No history of wounds to feet or amputation. DEXA: She believes she had a DEXA done in the past but it was some time ago. She would like to continue with screening. DEXA ordered. Mammogram: Kati reports her last mammogram was several years ago. She would like to have this done. Her mom has a h/o breast cancer. Order entered. Colonoscopy: No prior, doesn't want one. Will consider Cologuard. Mobility: Uses a walker. No recent falls. Mind/Memory/MOCA: No concerns. She denies a history of dementia. Skin: No concerns. Instructions Date Instruction Additional Infor radhashaheen -Cough, runny nose, fatigue, decreased appetite, mild sore throat. COVID and strep negative on 07/03/25.-Advised symptomatic management with fluids, rest, Tylenol, guaifenesin. Related to Viral upper respiratory illness -Per pre-enrollment. -LDL goal < 70.-01/2025 TC 122, HDL 30, LDL 62, TG 255 (non-fasting).-Meals prepared by [facility], limited physical activity. -Continue rosuvastatin 40mg daily, ezetimibe 10mg daily.-Continue periodic labs. Related to Hyperlipidemia, unspecified hyperlipidemia type -Long history of hea rt failure, previously following with cardiology at [facility]. -EF was previously reduced however echo 05/2024 showed normalized EF 70-75%, aortic valve moderately calcified with moderate aortic stenosis, no aortic regurgitation. Unable to assess diastolic function due to mitral annular calcification. Repeat echo inpatient 02/2025 showed LVEF 55-60%, LV wall thickness increased, left atrium severely dilated, aortic valve moderately to severely calcified. Moderate to severe aortic stenosis. No regurgitation.-Continue metoprolol, isosorbide, Lasix, spironolactone. Allergy listed to lisinopril. -Repeat labs in early July. Related to Chronic heart failure with preserved ejection fraction (HFpEF) -Per echo ([facility] 05/10/24) there is moderate aortic stenosis. Repeat echo 02/2025 showed aortic valve appears moderately to severely calcified. The aortic valve leaflet opening is moderately decreased. There is moderate to severe aortic stenosis. The peak gradient is 50 mmHg. The mean gradient is 28 mmHg. The valve area is 0.9 cm2. There is no significant aortic regurgitation . -Pending follow up with cardiology. Related to Nonrheumatic aortic valve stenosis -Per pre-enrollment (dated 02/17/24 page 1), history of hypertension, CKD, heart failure initially reported as reduced EF however EF noted to have normalized on 05/2024 echo. -See HFpEF. See CKD3.-BP goal <140/90. She has been intermittently higher than this, but not consistent. -Continue metoprolol, spironolactone, isosorbide, Lasix 40mg daily. Related to Hypertensive heart and chronic kidney disease with heart failure -Kati has a histo ry of BRIAN but more recently reporting depression symptoms; also noted with decreased motivation, tearful, less engagement. -Kati is interested in meeting a therapist. SW aware and to begin with supportive visits and refer to LMHC if needed. -Continue escitalopram 20mg daily. Related to Depression, unspecified depression type -Ongoing diagnosis o f generalized anxiety disorder. Experienced increased anxiety symptoms recently with medical concerns and pain affecting her quality of life. -Escitalopram recently increased to 20mg daily with good effect. -SW to meet with her for supportive visits and refer to LMHC if needed. Related to Generalized anxiety disorder -Longstanding osteoa rthritis of right hip pain. X-ray showed: Sclerotic band across the right femoral neck is concerning for a nondisplaced fracture. CT - did not show fracture, orthopedic recommended MRI of the right hip which showed severe osteoarthritis and no fracture. -Seen by ortho 04/2025 with plan for right total hip in May. Labs, EKG ordered. Unfortunately at this time she cannot be cleared for surgery due to high blood sugar. Per [facility], they want HbA1c <8% to proceed with surgery. Kati is aware of this and we are actively reviewing blood sugars and making adjustments. -Left shoulder also causing pain, ? r/t overuse and increased strain on the joint due to changes in ambulation with walker. -Continue working with PT. -Continue Tylenol, gabapentin, PRN Tramadol. Lidocaine patch to left shoulder applied in day center. Related to Generalized osteoarthritis -Per pre-enrollment (dated 02/17/24 page 1), history of morbid obesity. -Significant comorbidities including HTN, HLD, T2DM, CKD. -BMI 06/2025 50.11.-Continues on Mounjaro for both T2DM and obesity management; being titrated every 4 weeks. Related to Morbid obesity -Continue Mounjaro. Related to L so-term (current) use of injectable non-insulin antidiabetic drugs -BMI 50.11 Related to Body mass index [BMI] 50.0-59.9, adult -Per pre-enrollment (dated 02/17/24 page 1), history of hypothyroidism. -01/2025 with TSH 3.28. Continue current dosing of levothyroxine at 125mcg daily.-Repeat labs next month. Related to Hypothyroidism, unspecified type -Per dental visit , patient has periodontal disease due with her diabetes, described as Type 3. Findings include poor oral hygiene, multiple fractured and infected teeth. Needs panoramic xray due to excessive gag reflex and then will need extractions under conscious sedation. 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 -She has an allergy listed to lisinopril. I do not see that she is on an ARB although she has mentioned she was taken off two cardiac medications not too long ago, unclear time or reason. She will follow up with cardiology; one of their past notes states isosorbide was used as alternative to ACEI.-SGLT2 unfortunately discontinued recently r/t recurrent UTI. -Repeat urine microalbumin 05/2025 more significant elevated at 1220 in the setting of significant hyperglycemia recently. Will repeat in the next few weeks, plan to start ARB or [facility] nephrology for recommendations. Related to Type 2 diabetes mellitus with microalbuminuria -See T2DM with hyper glycemia for further details on management of glucose.-Microalbuminuria present on enrollment labs, unknown duration. -She has an allergy listed to lisinopril. I do not see that she is on an ARB although she has mentioned she was taken off two cardiac medications not too long ago, unclear time or reason. She will follow up with cardiology; one of their past notes states isosorbide was used as alternative to ACEI.-SGLT2 unfortunately discontinued recently r/t recurrent UTI. -Repeat urine microalbumin 05/2025 more significant elevated at 1220 in the setting of significant hyperglycemia recently. Will repeat in the next few weeks, plan to start ARB or [facility] nephrology for recommendations. Related to Proteinuria, unspecified -See T2DM with hyper glycemia for further details on management of glucose.-CKD3: 05/2025 eGFR 39, creatinine 1.48, umalb/cr ratio 1220. Allergy listed to lisinopril. -Avoid nephrotoxins, encourage hydration, BP management, routine labs. Related to Type 2 diabetes mellitus with stage 3a chronic kidney disease, with long-term current use of insulin -See T2DM with hyper glycemia for further details on management of glucose.-CKD3: 05/2025 eGFR 39, creatinine 1.48, umalb/cr ratio 1220. Allergy listed to lisinopril. -Avoid nephrotoxins, encourage hydration, BP management, routine labs. Related to Chronic kidney disease, stage 3a -Per pre-enrollment (dated 02/17/24 page 5), history of Type 2 diabetes mellitus with neuropathy. She reports she was diagnosed with diabetes when and then it never resolved after delivery. Unclear when she developed neuropathy. -See T2DM with hyperglycemia for further details on management of glucose.-We will assist with nail care in clinic as needed and refer out to podiatry if indicated. No history of wounds or amputations. Encouraged her to report any changes in her skin integrity or symptoms. -Pain overnight is most bothersome. She is on gabapentin 600mg daily at bedtime, titrated over the past few months with good effect. No changes today. Related to Type 2 diabetes mellitus with diabetic neuropathy, with long-term current use of insulin -Per pre-enrollment (dated 02/17/24 page 5), history of Type 2 diabetes mellitus. She reports she was diagnosed when and then it never resolved after delivery. -HbA1c 04/2025 11.6% up from 8.7% 3 months prior. -Continue risk reduction and screening for microvascular and macrovascular complications including management of lipids, BP, routine eye exams, routine foot exams, routine labs. -Discussed portion sizes, avoiding sugary beverages. There are also reports that she tends to order out a lot. -Continue Lantus 45 units, Humalog sliding scale of 13 units starting at 100mg/dL, increase by 2 units per 50mg/dL, Mounjaro 7.5mg weekly x 4 weeks then increase. Related to Type 2 diabetes mellitus with hyperglycemia, with long-term current use of insulin -Per pre-enrollment (dated 02/17/24 page 5), history of Type 2 diabetes mellitus. She reports she was diagnosed when and then it never resolved after delivery. -HbA1c 04/2025 11.6% up from 8.7% 3 months prior. -Continue risk reduction and screening for microvascular and macrovascular complications including management of lipids, BP, routine eye exams, routine foot exams, routine labs. -Discussed portion sizes, avoiding sugary beverages. There are also reports that she tends to order out a lot. -Continue Lantus 45 units, Humalog sliding scale of 13 units starting at 100mg/dL, increase by 2 units per 50mg/dL, Mounjaro 7.5mg weekly x 4 weeks then increase. 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 She reports she was diagnosed when and then it never resolved after delivery. -04/2025 [id number]%. Goal <7.5-8% given ago and comorbidities. Needs to be less than 8% to proceed with orthopedic surgery. -Continue risk reduction and screening for microvascular and macrovascular complications including management of lipids, BP, routine eye exams, routine foot exams, routine labs. -Now that she has increased the Mounjaro, blood sugars running low, mostly in the morning time. Lantus reduced to 45 units daily, continue Humalog sliding scale starting with 13 units at 100mg/dL, increase by 2 units per 50mg/dL, continue Mounjaro. Related to Type 2 diabetes mellitus with hypoglycemia without coma, with long-term current use of insulin -Per pre-enrollment (dated 02/17/24 page 5), history of Type 2 diabetes mellitus with neuropathy. She reports she was diagnosed when and then it never resolved after delivery. -04/2025 [id number]%. Goal <7.5-8% given ago and comorbidities. Needs to be less than 8% to proceed with orthopedic surgery. -Continue risk reduction and screening for microvascular and macrovascular complications including management of lipids, BP, routine eye exams, routine foot exams, routine labs. -Now that she has increased the Mounjaro, blood sugars running low, mostly in the morning time. Lantus reduced to 45 units daily, continue Humalog sliding scale starting with 13 units at 100mg/dL, increase by 2 units per 50mg/dL, continue Mounjaro. Related to technician terminal and repeater (current) use of insulin -Per pre-enrollment (dated 02/17/24 page 1), history of morbid obesity. -Significant comorbidities including HTN, HLD, T2DM, CKD. -BMI 01/2025 42.43. -Trulicity being increased today for both glucose and weight goals. We can consider switch to Mounjaro or Zepbound at the next visit for better efficacy if needed. Related to Morbid obesity -Longstanding osteoa rthritis of right hip pain. X-ray showed: Sclerotic band across the right femoral neck is concerning for a nondisplaced fracture. CT - did not show fracture, orthopedic recommended MRI of the right hip which showed severe osteoarthritis and no fracture. -Seen by ortho 04/2025 with plan for right total hip in May. Labs, EKG ordered. Unfortunately at this time she cannot be cleared for surgery due to high blood sugar. Per [facility], they want HbA1c <8% to proceed with surgery. Kati is aware of this and we are actively reviewing blood sugars and making adjustments. -Left shoulder also causing pain, ? r/t overuse and increased strain on the joint due to changes in ambulation with walker. -Continue working with PT. -Continue Tylenol, gabapentin, PRN Tramadol. Lidocaine patch to left shoulder applied in day center. Related to Generalized osteoarthritis -Kati has a histo ry of BRIAN but more recently reporting depression symptoms; also noted with decreased motivation, tearful, less engagement. -Kati is interested in meeting a therapist. SW aware and to begin with supportive visits and refer to HC if needed. -Continue escitalopram 20mg daily. Related to Depression, unspecified depression type -Per pre-enrollment (dated 02/17/24 page 5), history of Type 2 diabetes mellitus. She reports she was diagnosed when and then it never resolved after delivery. -HbA1c 04/2025 11.6% up from 8.7% 3 months prior. -Continue risk reduction and screening for microvascular and macrovascular complications including management of lipids, BP, routine eye exams, routine foot exams, routine labs. -Discussed portion sizes, avoiding sugary beverages. Will have extermination supervisor meet with her. -Increase Lantus to 54 units, increase Humalog sliding scale to 13 units starting at 100mg/dL, increase by 2 units per 50mg/dL. Stop Trulicity; start Mounjaro 5mg weekly x 4 weeks then increase. Related to technician terminal and repeater (current) use of insulin -Per pre-enrollment (dated 02/17/24 page 5), history of Type 2 diabetes mellitus. She reports she was diagnosed when and then it never resolved after delivery. -HbA1c 04/2025 11.6% up from 8.7% 3 months prior. -Continue risk reduction and screening for microvascular and macrovascular complications including management of lipids, BP, routine eye exams, routine foot exams, routine labs. -Discussed portion sizes, avoiding sugary beverages. Will have extermination supervisor meet with her. -Increase Lantus to 54 units, increase Humalog sliding scale to 13 units starting at 100mg/dL, increase by 2 units per 50mg/dL. Stop Trulicity; start Mounjaro 5mg weekly x 4 weeks then increase. Related to Type 2 diabetes mellitus with hyperglycemia, with long-term current use of insulin With longstanding os teoarthritis of right hip pain. X-ray showed: Sclerotic band across the right femoral neck is concerning for a nondisplaced fracture. CT - did not show fracture, orthopedic recommended MRI of the right hip which showed severe osteoarthritis and no fracture. -Seen by ortho 04/2025 with plan for right total hip in May. Labs, EKG ordered. Unfortunately at this time she cannot be cleared for surgery due to high blood sugar. Related to Generalized osteoarthritis Will treat empirical ly and wait for the culture Related to Acute UTI -Per pre-enrollment (dated 02/17/24 page 5), history of Type 2 diabetes mellitus. She reports she was diagnosed when and then it never resolved after delivery. -HbA1c 04/2025 11.6% up from 8.7% 3 months prior. -Continue risk reduction and screening for microvascular and macrovascular complications including management of lipids, BP, routine eye exams, routine foot exams, routine labs. -Discussed portion sizes, avoiding sugary beverages. Will have extermination supervisor meet with her. -Increase Lantus to 48 units, increase Humalog sliding scale to 10 units starting at 100mg/dL, increase by 2 units per 50mg/dL. Stop Trulicity; start Mounjaro 5mg weekly x 4 weeks then increase. Related to technician terminal and repeater (current) use of insulin -Per pre-enrollment (dated 02/17/24 page 5), history of Type 2 diabetes mellitus. She reports she was diagnosed when and then it never resolved after delivery. -HbA1c 04/2025 11.6% up from 8.7% 3 months prior. -Continue risk reduction and screening for microvascular and macrovascular complications including management of lipids, BP, routine eye exams, routine foot exams, routine labs. -Discussed portion sizes, avoiding sugary beverages. Will have extermination supervisor meet with her. -Increase Lantus to 48 units, increase Humalog sliding scale to 10 units starting at 100mg/dL, increase by 2 units per 50mg/dL. Stop Trulicity; start Mounjaro 5mg weekly x 4 weeks then increase. Related to Type 2 diabetes mellitus with hyperglycemia, with long-term current use of insulin -Ongoing diagnosis o f generalized anxiety disorder. Experienced increased anxiety symptoms recently with ongoing medical concerns, pain. -Escitalopram recently increased to 20mg daily. -SW to meet with her for supportive visits and refer to [facility] if needed. Related to Generalized anxiety disorder -Longstanding osteoa rthritis of various joints. Tends to worsen with changes in the weather. -Fall on 12/04/24 with exacerbation of right hip pain. No fracture per ortho, ER note stated X-ray showed: Sclerotic band across the right femoral neck is concerning for a nondisplaced fracture. CT - did not show fracture, orthopedic recommended MRI of the right hip which showed severe osteoarthritis and no fracture. -Seen by ortho 04/2025 with plan for right total hip in May. Labs, EKG ordered. Pre-op clearance appt with me will be 05/08/25. -Continue Tylenol scheduled TID, daily lidocaine patch to right hip (she applies at bedtime), increase gabapentin 600mg daily at bedtime. Related to Generalized osteoarthritis -Per pre-enrollment (dated 02/17/24 page 5), history of Type 2 diabetes mellitus with neuropathy. She reports she was diagnosed when and then it never resolved after delivery. -HbA1c 01/2025 8.7%. 08/2024 HbA1c 7.5%. Goal <7.5-8% given age and comorbidities. -Continue risk reduction and screening for microvascular and macrovascular complications including management of lipids, BP, routine eye exams, routine foot exams, routine labs. -Reviewed Phil logs 04/27 and noted persistent hyperglycemia. -Advised further increase in Lantus to 38 units daily at bedtime, adjust Humalog sliding scale to 8 units at 100mg/dL, increase by 2 units per 50mg/dL, continue Trulicity 4.5mg weekly.-HOLD Trulicity starting on 05/07/25 in anticipation for surgery. Related to Type 2 diabetes mellitus with hyperglycemia, with long-term current use of insulin -Per pre-enrollment (dated 02/17/24 page 5), history of Type 2 diabetes mellitus with neuropathy. She reports she was diagnosed when and then it never resolved after delivery. -HbA1c 01/2025 8.7%. 08/2024 HbA1c 7.5%. Goal <7.5-8% given age and comorbidities. -Continue risk reduction and screening for microvascular and macrovascular complications including management of lipids, BP, routine eye exams, routine foot exams, routine labs. -Reviewed Phil logs 04/27 and noted persistent hyperglycemia. -Advised further increase in Lantus to 38 units daily at bedtime, adjust Humalog sliding scale to 8 units at 100mg/dL, increase by 2 units per 50mg/dL, continue Trulicity 4.5mg weekly.-HOLD Trulicity starting on 05/07/25 in anticipation for surgery. Related to senior care (current) use of insulin -Last UTI 11/2024.-U rinary symptoms including dysuria, hematuria. -UA with Cx positive for greater than 100k E.Coli with susceptibility to Bactrim. Sent for Bactrim DS BID x 3 days with Florastor. Related to Acute UTI CKD3: 01/2025 eGFR 5 6, creatinine 1.11, BUN 40. 11/2024 eGFR 59, creatinine 1.05. 08/2024 urine albumin/creatinine ratio 108, eGFR 52, creatinine 1.17, BUN 29. -Avoid nephrotoxins, encourage hydration, BP management, routine labs. SGLT2 had to be discontinued r/t recurrent UTI. Related to Stage 3a chronic kidney disease -Long history of hea rt failure, previously following with cardiology at [facility]. -EF was previously reduced however echo 05/2024 showed normalized EF 70-75%, aortic valve moderately calcified with moderate aortic stenosis, no aortic regurgitation. Unable to assess diastolic function due to mitral annular calcification. Repeat echo inpatient 02/2025 showed LVEF 55-60%, LV wall thickness increased, left atrium severely dilated, aortic valve moderately to severely calcified. Moderate to severe aortic stenosis. No regurgitation. Related to Chronic heart failure with preserved ejection fraction Metolazone 2.5mg and Lasix 40mgIM was given. She is planned to be sent home with extra Lasix to make it 80mg BID for the next 2 days and have a follow up with RN and PCP afterwards. Given she is wheelchair bound and is going to be urinating all night long, she was give foely Related to Hypertensive heart and chronic kidney disease with heart failure -Longstanding osteoa rthritis of various joints. Tends to worsen with changes in the weather. -Fall on 12/04/24 with exacerbation of right hip pain. No fracture per ortho, ER note stated X-ray showed: Sclerotic band across the right femoral neck is concerning for a nondisplaced fracture. CT - did not show fracture, orthopedic recommended MRI of the right hip which only showed severe osteoarthritis and no fracture. -02/2025: Continues to have flare ups of pain. Recently in rehab. Continue PT/OT. -Continue Tylenol scheduled TID, daily lidocaine patch to right hip (she applies at bedtime), gabapentin 300mg daily at bedtime. Related to Generalized osteoarthritis -Per pre-enrollment (dated 02/17/24 page 5), history of Type 2 diabetes mellitus with neuropathy. She reports she was diagnosed when and then it never resolved after delivery. -HbA1c 01/2025 8.7%. 08/2024 HbA1c 7.5%. Goal <7.5-8% given age and comorbidities. -Continue risk reduction and screening for microvascular and macrovascular complications including management of lipids, BP, routine eye exams, routine foot exams, routine labs. -Glucose high on labs 02/20 at 399 and Kati reports CGM reading high lately since returning from the hospital, sometimes over 400mg/dL. Yesterday we increased her Lantus to 22 units at bedtime and this morning her glucose was 238mg/dL before breakfast and over 400mg/dL at 11AM. Denies missed insulin, takes her Humalog before meals, no recent steroids. -Advised further increase in Lantus to 26 units daily at bedtime, adjust Humalog sliding scale to 4 units at 100mg/dL, increase by 2 units per 50mg/dL, continue Trulicity 4.5mg weekly. Related to senior care (current) use of insulin -Per pre-enrollment (dated 02/17/24 page 5), history of Type 2 diabetes mellitus with neuropathy. She reports she was diagnosed when and then it never resolved after delivery. -HbA1c 01/2025 8.7%. 08/2024 HbA1c 7.5%. Goal <7.5-8% given age and comorbidities. -Continue risk reduction and screening for microvascular and macrovascular complications including management of lipids, BP, routine eye exams, routine foot exams, routine labs. -Glucose high on labs 02/20 at 399 and Kati reports CGM reading high lately since returning from the hospital, sometimes over 400mg/dL. Yesterday we increased her Lantus to 22 units at bedtime and this morning her glucose was 238mg/dL before breakfast and over 400mg/dL at 11AM. Denies missed insulin, takes her Humalog before meals, no recent steroids. -Advised further increase in Lantus to 26 units daily at bedtime, adjust Humalog sliding scale to 4 units at 100mg/dL, increase by 2 units per 50mg/dL, continue Trulicity 4.5mg weekly. Related to Type 2 diabetes mellitus with hyperglycemia, with long-term current use of insulin -Labs 02/20 showed di p in renal function with eGFR down to 39, creatinine up to 1.49, BUN 66. This was after 3 days of significant diuresis and I suspect this will improve back to baseline of CKD3A.-Continue metoprolol, spironolactone, isosorbide, Lasix 40mg daily.-Avoid nephrotoxins, encourage hydration, BP management, routine labs. SGLT2 had to be discontinued r/t recurrent UTI.-Repeat labs in 1 week. Related to Stage 3a chronic kidney disease -Long history of hea rt failure, previously following with cardiology at [facility]. -EF was previously reduced however echo 05/2024 showed normalized EF 70-75%, aortic valve moderately calcified with moderate aortic stenosis, no aortic regurgitation. Unable to assess diastolic function due to mitral annular calcification. Repeat echo inpatient 02/2025 showed LVEF 55-60%, LV wall thickness increased, left atrium severely dilated, aortic valve moderately to severely calcified. Moderate to severe aortic stenosis. No regurgitation. -She is on isosorbide (alternative to ACEI as she has an allergy to lisinopril), metoprolol, spironolactone and GLP-1 RA. SGLT2 inhibitor had to be discontinued r/t recurrent UTI. Lasix 40mg daily added by cardiology inpatient. -Continue metoprolol, spironolactone, isosorbide, Lasix 40mg daily. Edema continuing to improve, pro-BNP 02/20 was 591 improved from over 800 when inpatient. No changes today 02/23. Related to Chronic heart failure with preserved ejection fraction -Per pre-enrollment (dated 02/17/24 page 1), history of hypertension, CKD, heart failure initially reported as reduced EF however EF noted to have normalized on 05/2024 echo. -See HFpEF. See CKD3.-BP goal <140/90. She has been intermittently higher than this, but not consistent. May be related to increased pain. -Labs 02/20 showed dip in renal function with eGFR down to 39, creatinine up to 1.49, BUN 66. This was after 3 days of significant diuresis and I suspect this will improve. -Continue metoprolol, spironolactone, isosorbide, Lasix 40mg daily.-Repeat labs in 1 week. 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 Kati says this was the first time it ever occurred. Seen by gynecology inpatient who recommended she have a transvaginal ultrasound outpatient if she is able to tolerate positioning. .-Reports another episode of small amount of bleeding on 02/23/25 in the morning that has since stopped. She will report recurrence. -Transvaginal ultrasound has been scheduled. Related to Postmenopausal bleeding -CKD3: 02/2025 (inradha gomez) eGFR 60-71, creatinine 0.9-1.04; 01/2025 eGFR 56, creatinine 1.11, BUN 40. 11/2024 eGFR 59, creatinine 1.05. 08/2024 urine albumin/creatinine ratio 108, eGFR 52, creatinine 1.17, BUN 29. -Avoid nephrotoxins, encourage hydration, BP management, routine labs. SGLT2 had to be discontinued r/t recurrent UTI.-Repeat labs ordered today. Related to Stage 3a chronic kidney disease -Long history of hea rt failure, previously following with cardiology at [facility]. -EF was previously reduced however echo 05/2024 showed normalized EF 70-75%, aortic valve moderately calcified with moderate aortic stenosis, no aortic regurgitation. Unable to assess diastolic function due to mitral annular calcification. Repeat echo inpatient 02/2025 showed LVEF 55-60%, LV wall thickness increased, left atrium severely dilated, aortic valve moderately to severely calcified. Moderate to severe aortic stenosis. No regurgitation. -She is on isosorbide (alternative to ACEI as she has an allergy to lisinopril), metoprolol, spironolactone and GLP-1 RA. SGLT2 inhibitor had to be discontinued r/t recurrent UTI. Lasix 40mg daily added by cardiology inpatient. -Continue metoprolol, spironolactone, isosorbide. Lasix was increased x 3 days (02/17-02/19/25) and as of this morning she is back to 40mg daily. Aside from some lingering lower extremity edema, she has no other symptoms to suggest CHF exacerbation or need for further diuresis. -Labs ordered. Related to Chronic heart failure with preserved ejection fraction -Per pre-enrollment (dated 02/17/24 page 1), history of hypertension, CKD, heart failure initially reported as reduced EF however EF noted to have normalized on 05/2024 echo. -See HFpEF. See CKD3.-BP goal <140/90. She has been intermittently higher than this, but not consistent. May be related to increased pain. -Continue metoprolol, spironolactone, isosorbide. Lasix was increased x 3 days (02/17-02/19/25) and as of this morning she is back to 40mg daily.-Labs ordered. Related to Hypertensive heart and chronic kidney disease with heart failure -Kati confirms alvin merritt has a long history of heart failure. She calls it congestive heart failure and says she was previously following with cardiology at [facility]. -EF was previously reduced however echo 05/2024 showed normalized EF 70-75%, aortic valve moderately calcified with moderate aortic stenosis, no aortic regurgitation. Unable to assess diastolic function due to mitral annular calcification. Repeat echo inpatient 02/2025 showed LVEF 55-60%, LV wall thickness increased, left atrium severely dilated, aortic valve moderately to severely calcified. Moderate to severe aortic stenosis. No regurgitation. -She is on isosorbide (alternative to ACEI as she has an allergy to lisinopril), metoprolol, spironolactone and GLP-1 RA. SGLT2 inhibitor had to be discontinued r/t recurrent UTI. Lasix 40mg daily added by cardiology inpatient. -1-2+ pitting edema today. BP is stable, no SOB/LSCTAB. She is willing to use compression stockings. These have been ordered. Continue Lasix at current dosing. -Pending outpatient follow up with cardiology. Related to Acute on chronic heart failure with preserved ejection fraction -Longstanding osteoa rthritis of various joints. Tends to worsen with changes in the weather. -Fall on 12/04/24 with exacerbation of right hip pain. No fracture per ortho, ER note stated X-ray showed: Sclerotic band across the right femoral neck is concerning for a nondisplaced fracture. CT - did not show fracture, orthopedic recommended MRI of the right hip which only showed severe osteoarthritis and no fracture. Pain control with scheduled Tylenol. From an orthopedic point of view she can weight-bear as tolerated on the right lower extremity .-02/2025: Continues to have flare ups of pain. In rehab now. Continue PT/OT. -Tylenol scheduled to TID, daily lidocaine patch to right hip (she applies at bedtime). Gabapentin being increased to 300mg at bedtime. Related to Generalized osteoarthritis -CKD3: 02/2025 (thiago gomez) eGFR 60-71, creatinine 0.9-1.04; 01/2025 eGFR 56, creatinine 1.11, BUN 40. 11/2024 eGFR 59, creatinine 1.05. 08/2024 urine albumin/creatinine ratio 108, eGFR 52, creatinine 1.17, BUN 29. -Avoid nephrotoxins, encourage hydration, BP management, routine labs. SGLT2 had to be discontinued r/t recurrent UTI.-Repeat labs in 1-2 weeks. Related to Stage 3a chronic kidney disease -Trulicity 4.5mg weekly. Related to Long-term (current) use of injectable non-insulin antidiabetic drugs -Per pre-enrollment (dated 02/17/24 page 5), history of Type 2 diabetes mellitus with neuropathy. She reports she was diagnosed when and then it never resolved after delivery. -HbA1c 01/2025 8.7%. 08/2024 HbA1c 7.5%. Goal <7.5-8% given age and comorbidities. -Continue risk reduction and screening for microvascular and macrovascular complications including management of lipids, BP, routine eye exams, routine foot exams, routine labs. -Given increased HbA1c, Trulicity was increased recently to 4.5mg and Lantus to 18 units daily. Continue current Humalog sliding scale for now. Will reassess numbers 1-2 weeks after changes to determine if further changes needed. Related to Type 2 diabetes mellitus with hyperglycemia, with long-term current use of insulin -Per pre-enrollment (dated 02/17/24 page 5), history of Type 2 diabetes mellitus with neuropathy. She reports she was diagnosed with diabetes when and then it never resolved after delivery. Unclear when she developed neuropathy. -See T2DM with hyperglycemia for further details on management of glucose.-We will assist with nail care in clinic as needed and refer out to podiatry if indicated. -No history of wounds or amputations. Encouraged her to report any changes in her skin integrity or symptoms. -Pain overnight is most bothersome. She is on gabapentin at bedtime, will increase to 300mg daily at bedtime. Related to Type 2 diabetes mellitus with diabetic neuropathy, with long-term current use of insulin -Per pre-enrollment (dated 02/17/24 page 5), history of Type 2 diabetes mellitus with neuropathy. She reports she was diagnosed with diabetes when and then it never resolved after delivery. Unclear when she developed neuropathy. -See T2DM with hyperglycemia for further details on management of glucose.-We will assist with nail care in clinic as needed and refer out to podiatry if indicated. -No history of wounds or amputations. Encouraged her to report any changes in her skin integrity or symptoms. -Pain overnight is most bothersome. She is on gabapentin at bedtime, will increase to 300mg daily at bedtime. Related to technician terminal and repeater (current) use of insulin -Treated inpatient f or LLE cellulitis. She has since completed course of cephalexin. She continues to have edema with some dermatitis however no signs of cellulitis at this point. Related to Left leg cellulitis -Postmenopausal vagi nal bleeding noted inpatient 02/2025. Kati says this was the first time it ever occurred. Seen by gynecology inpatient who recommended she have a transvaginal ultrasound outpatient if she is able to tolerate positioning. .-Hgb has remained stable. No further bleeding per Kati. She will report recurrence. Will order transvaginal ultrasound. Related to Postmenopausal bleeding -Per echo ([facility] 05/10/24) there is moderate aortic stenosis. Repeat echo 02/2025 showed aortic valve appears moderately to severely calcified. The aortic valve leaflet opening is moderately decreased. There is moderate to severe aortic stenosis. The peak gradient is 50 mmHg. The mean gradient is 28 mmHg. The valve area is 0.9 cm2. There is no significant aortic regurgitation . -Pending follow up with cardiology. Related to Nonrheumatic aortic valve stenosis -Per pre-enrollment (dated 02/17/24 page 1), history of hypertension, CKD, heart failure initially reported as reduced EF however EF noted to have normalized on 05/2024 echo. -See HFpEF. See CKD3.-BP goal <140/90. She has been intermittently higher than this, but not consistent. May be related to increased pain. -Continue metoprolol, spironolactone, isosorbide. Lasix 40mg daily was added inpatient r/t CHF exacerbation which she continues on now. Related to Hypertensive heart and chronic kidney disease with heart failure -Per dental visit , patient has periodontal disease due with her diabetes, described as Type 3. Findings include poor oral hygiene, multiple fractured and infected teeth. Needs panoramic xray due to excessive gag reflex and then will need extractions under conscious sedation. 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 Findings include poor oral hygiene, multiple fractured and infected teeth. Needs panoramic xray due to excessive gag reflex and then will need extractions under conscious sedation. 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 -BMI 42.43. Related to Body mass index (BMI) of 40.1 to 44.9 in adult -Per pre-enrollment (dated 02/17/24 page 1), history of morbid obesity. -Significant comorbidities including HTN, HLD, T2DM, CKD. -BMI 01/2025 42.43. -Trulicity being increased today for both glucose and weight goals. We can consider switch to Mounjaro or Zepbound at the next visit for better efficacy if needed. Related to Morbid obesity -Per pre-enrollment (dated 02/17/24 page 1), history of hypothyroidism. -Back in April 2024 her TSH was 0.25 and then in May 2024 it was 24. -08/2024 TSH 0.31, FT4 1.7. Levothyroxine reduced in mid-August 2024 to 125mcg daily. Labs now 01/2025 with TSH 3.28. Continue current dosing, repeat labs in 6-12 months. Related to Hypothyroidism, unspecified type -Lantus, Humalog Related to Long -term insulin use -Per pre-enrollment (dated 02/17/24 page 5), history of Type 2 diabetes mellitus with neuropathy. She reports she was diagnosed with diabetes when and then it never resolved after delivery. Unclear when she developed neuropathy. -See T2DM with hyperglycemia for further details on management of glucose.-We will assist with nail care in clinic as needed and refer out to podiatry if indicated. Nails are well trimmed today.-No history of wounds or amputations. Encouraged her to report any changes in her skin integrity or symptoms. -Pain well managed at present with only mild symptoms. Related to Type 2 diabetes mellitus with diabetic neuropathy, with long-term current use of insulin -See T2DM with hyper glycemia for further details on management of glucose.-CKD3: 01/2025 eGFR 56, creatinine 1.11, BUN 40. -Microalbuminuria present on enrollment labs, unknown duration. -She has an allergy listed to lisinopril. I do not see that she is on an ARB although she has mentioned she was taken off two cardiac medications not too long ago, unclear time or reason. She will follow up with cardiology; one of their past notes states isosorbide was used as alternative to ACEI.-SGLT2 unfortunately discontinued recently r/t recurrent UTI. -Repeat urine microalbumin in 6-12 months. Related to Proteinuria, unspecified -See T2DM with hyper glycemia for further details on management of glucose.-CKD3: 01/2025 eGFR 56, creatinine 1.11, BUN 40. -Microalbuminuria present on enrollment labs, unknown duration. -She has an allergy listed to lisinopril. I do not see that she is on an ARB although she has mentioned she was taken off two cardiac medications not too long ago, unclear time or reason. She will follow up with cardiology; one of their past notes states isosorbide was used as alternative to ACEI.-SGLT2 unfortunately discontinued recently r/t recurrent UTI. -Repeat urine microalbumin in 6-12 months. Related to Type 2 diabetes mellitus with microalbuminuria -Trulicity 4.5mg weekly. Related to Long-term (current) use of injectable non-insulin antidiabetic drugs -Per pre-enrollment (dated 02/17/24 page 5), history of Type 2 diabetes mellitus with neuropathy. She reports she was diagnosed when and then it never resolved after delivery. -HbA1c 01/2025 8.7%. 08/2024 HbA1c 7.5%. Goal <7.5-8% given age and comorbidities. -Continue risk reduction and screening for microvascular and macrovascular complications including management of lipids, BP, routine eye exams, routine foot exams, routine labs. -Given increased HbA1c, Trulicity increased to 8.7% and Lantus increased to 18 units daily. Continue current Humalog sliding scale for now. Will reassess numbers 1-2 weeks after changes to determine if further changes needed. Related to Type 2 diabetes mellitus with hyperglycemia, with long-term current use of insulin -See T2DM with hyper glycemia for further details on management of glucose.-CKD3: 01/2025 eGFR 56, creatinine 1.11, BUN 40. 11/2024 eGFR 59, creatinine 1.05. 08/2024 urine albumin/creatinine ratio 108, eGFR 52, creatinine 1.17, BUN 29. -Avoid nephrotoxins, encourage hydration, BP management, routine labs. Related to Type 2 diabetes mellitus with stage 3a chronic kidney disease, with long-term current use of insulin -See T2DM with hyper glycemia for further details on management of glucose.-CKD3: 01/2025 eGFR 56, creatinine 1.11, BUN 40. 11/2024 eGFR 59, creatinine 1.05. 08/2024 urine albumin/creatinine ratio 108, eGFR 52, creatinine 1.17, BUN 29. -Avoid nephrotoxins, encourage hydration, BP management, routine labs. Related to Chronic kidney disease, stage 3a -Kati confirms alvin merritt has a long history of heart failure. She calls it congestive heart failure and says she was previously following with cardiology at [facility]. -EF was previously reduced however last echo 05/2024 showed normalized EF 70-75%, aortic valve moderately calcified with moderate aortic stenosis, no aortic regurgitation. Unable to assess diastolic function due to mitral annular calcification. -She is on isosorbide (alternative to ACEI as she has an allergy to lisinopril), metoprolol, spironolactone and GLP-1 RA. SGLT2 inhibitor had to be discontinued r/t recurrent UTI. -Trace edema noted today. BP is stable, no SOB/LSCTAB. She is willing to use compression stockings. These will be ordered for. -No changes today. Related to Chronic heart failure with preserved ejection fraction (HFpEF) -Per pre-enrollment. -LDL goal < 70.-01/2024 TC 122, HDL 30, LDL 62, TG 255 (non-fasting). 08/2024 TC 119, HDL 27, LDL 69, TG 157 (non-fasting).-Meals prepared by [facility], limited physical activity. -Continue rosuvastatin 40mg daily, ezetimibe 10mg daily.-Continue periodic labs. Related to Hyperlipidemia, unspecified hyperlipidemia type -Per pre-enrollment (dated 02/17/24 page 1), history of hypertension, CKD. She also carried a history of heart failure initially reported as reduced EF however EF noted to have normalized on 05/2024 echo. -See HFpEF. See CKD3.-BP goal <140/90. She has been meeting goal recently. No orthostasis. -Continue metoprolol, spironolactone, isosorbide. Related to Hypertensive heart and chronic kidney disease with heart failure -Ongoing diagnosis o f generalized anxiety disorder. Experienced increased anxiety symptoms recently in SNF but this has settled since returning home. -Continue escitalopram 10mg daily. Related to Generalized anxiety disorder Patient with general ized anxiety disorderPt states that her anxiety initially worsened being in the SNF but now she is feeling better and looking forward to going homeContinue EscitalopramLuzmall continue to monitor Related to Anxiety disorder, unspecified type Patient with longsta nding osteoarthritis of multiple jointsFall made the pain worse in right hipNo fracture as per Ortho and imagingPain managementContinue rehabReady for discharge in 2 days Related to Generalized osteoarthritis -Longstanding osteoa rthritis of various joints. Tends to worsen with changes in the weather. -Fall on 12/04/24 with exacerbation of right hip pain. No fracture per ortho, ER note stated X-ray showed: Sclerotic band across the right femoral neck is concerning for a nondisplaced fracture. CT - did not show fracture, orthopedic recommended MRI of the right hip which only showed severe osteoarthritis and no fracture. Pain control with scheduled Tylenol. From an orthopedic point of view she can weight-bear as tolerated on the right lower extremity .-Tylenol scheduled to TID, daily lidocaine patch to right hip.-PT/OT evals this afternoon. Related to Generalized osteoarthritis -Per pre-enrollment. -LDL goal < 70.-08/2024 TC 119, HDL 27, LDL 69, TG 157 (non-fasting).-Meals prepared by [facility], limited physical activity. -Continue rosuvastatin 40mg daily, ezetimibe 10mg daily.-Continue periodic labs. Related to Hyperlipidemia, unspecified hyperlipidemia type -See morbid obesity. -BMI 41.96. Related to Body mass index (BMI) of 40.1 to 44.9 in adult -See T2DM with hyper glycemia for further details on management of glucose.-CKD3: 08/2024 urine albumin/creatinine ratio 108, eGFR 52, creatinine 1.17, BUN 29. 05/2024 eGFR 55, creatinine 1.13. -Microalbuminuria present on enrollment labs, unknown duration. -She has an allergy listed to lisinopril. I do not see that she is on an ARB although she has mentioned she was taken off two cardiac medications not too long ago, unclear time or reason. She will follow up with cardiology; one of their past notes states isosorbide was used as alternative to ACEI.-Continue Jardiance.-Repeat urine microalbumin in 6-12 months. Related to Type 2 diabetes mellitus with microalbuminuria -See T2DM with hyper glycemia for further details on management of glucose.-CKD3: 08/2024 urine albumin/creatinine ratio 108, eGFR 52, creatinine 1.17, BUN 29. 05/2024 eGFR 55, creatinine 1.13. -Microalbuminuria present on enrollment labs, unknown duration. -She has an allergy listed to lisinopril. I do not see that she is on an ARB although she has mentioned she was taken off two cardiac medications not too long ago, unclear time or reason. She will follow up with cardiology; one of their past notes states isosorbide was used as alternative to ACEI.-Continue Jardiance.-Repeat urine microalbumin in 6-12 months. Related to Proteinuria, unspecified -Per pre-enrollment (dated 02/17/24 page 1), history of morbid obesity. -Significant comorbidities including HTN, HLD, T2DM, CKD. -Last BMI 41.96. -Continue GLP-1 RA with plan to increase dose at next visit after review of blood sugars. [employer] Clerk to assess as part of enrollment process. Related to Morbid obesity -Kati confirms alvin merritt has a long history of heart failure. She calls it congestive heart failure and says she was previously following with cardiology at [facility]. -EF was previously reduced however last echo 05/2024 showed normalized EF 70-75%, aortic valve moderately calcified with moderate aortic stenosis, no aortic regurgitation. Unable to assess diastolic function due to mitral annular calcification. -She is on isosorbide (alternative to ACEI as she has an allergy to lisinopril), metoprolol, spironolactone, SGLT2 inhibitor and GLP-1 RA. No changes today. Related to Chronic heart failure with preserved ejection fraction (HFpEF) -Per pre-enrollment (dated 02/17/24 page 1), history of hypertension, CKD. She also carried a history of heart failure initially reported as reduced EF however EF noted to have normalized on 05/2024 echo. -See HFpEF. See CKD3.-BP goal <140/90. Continue metoprolol, spironolactone. She is also on isosorbide. Related to Hypertensive heart and chronic kidney disease with heart failure -Per pre-enrollment (dated 02/17/24 page 5), history of unspecified anxiety disorder. Kati says this is chronic and she also had depression. -Continue escitalopram 10mg daily. Related to Anxiety disorder, unspecified type -Per pre-enrollment (dated 02/17/24 page 5), history of Type 2 diabetes mellitus with neuropathy. She reports she was diagnosed with diabetes when and then it never resolved after delivery. Unclear when she developed neuropathy. -See T2DM with hyperglycemia for further details on management of glucose.-We will assist with nail care in clinic as needed and refer out to podiatry if indicated. Nails are well trimmed today.-No history of wounds or amputations. Encouraged her to report any changes in her skin integrity or symptoms. -Pain well managed at present with only mild symptoms. Related to Type 2 diabetes mellitus with diabetic neuropathy, with long-term current use of insulin -Per pre-enrollment (dated 02/17/24 page 1), history of hypothyroidism. -Back in April 2024 her TSH was 0.25 and then in May 2024 it was 24. -08/2024 TSH 0.31, FT4 1.7. Levothyroxine reduced in mid-August to 125mcg daily. -Repeat on next labs. Related to Hypothyroidism, unspecified type -Trulicity 3mg weekly. Related t o Long-term (current) use of injectable non-insulin antidiabetic drugs -See T2DM with hyper glycemia for further details on management of glucose.-CKD3: 11/2024 eGFR 59, creatinine 1.05. 08/2024 urine albumin/creatinine ratio 108, eGFR 52, creatinine 1.17, BUN 29. 05/2024 eGFR 55, creatinine 1.13. -Avoid nephrotoxins, encourage hydration, BP management, routine labs. Related to Chronic kidney disease, stage 3a -See T2DM with hyper glycemia for further details on management of glucose.-CKD3: 11/2024 eGFR 59, creatinine 1.05. 08/2024 urine albumin/creatinine ratio 108, eGFR 52, creatinine 1.17, BUN 29. 05/2024 eGFR 55, creatinine 1.13. -Avoid nephrotoxins, encourage hydration, BP management, routine labs. Related to Type 2 diabetes mellitus with stage 3a chronic kidney disease, with long-term current use of insulin -Per pre-enrollment (dated 02/17/24 page 5), history of Type 2 diabetes mellitus with neuropathy. She reports she was diagnosed when and then it never resolved after delivery. -08/2024 HbA1c 7.5%. Goal <7.5-8% given age and comorbidities. -Continue risk reduction and screening for microvascular and macrovascular complications including management of lipids, BP, routine eye exams, routine foot exams, routine labs. -12/2024 Insulin reduced in hospital r/t lower numbers and likely lower insulin needs when inpatient. She is now on Lantus 15 units daily at bedtime, I adjusted her Humalog sliding scale when she transitioned from inpatient to rehab due to some postprandial hyperglycemia; scale now 2 units starting at 100mg/dL, increase by 2 units per 50mg/dL, Trulicity 3mg weekly, Jardiance 25mg daily.-She had cystitis in May, prescribed Keflex. Denies any other UTI/yeast infections. She has coexisting HF and CKD which her SGLT2 and GLP-1 RA will provide benefit for. Related to Type 2 diabetes mellitus with hyperglycemia, with long-term current use of insulin -Per pre-enrollment (dated 02/17/24 page 5), history of Type 2 diabetes mellitus with neuropathy. She reports she was diagnosed when and then it never resolved after delivery. -08/2024 HbA1c 7.5%. Goal <7.5-8% given age and comorbidities. -Continue risk reduction and screening for microvascular and macrovascular complications including management of lipids, BP, routine eye exams, routine foot exams, routine labs. -12/2024 Insulin reduced in hospital r/t lower numbers and likely lower insulin needs when inpatient. She is now on Lantus 15 units daily at bedtime, I adjusted her Humalog sliding scale when she transitioned from inpatient to rehab due to some postprandial hyperglycemia; scale now 2 units starting at 100mg/dL, increase by 2 units per 50mg/dL, Trulicity 3mg weekly, Jardiance 25mg daily.-She had cystitis in May, prescribed Keflex. Denies any other UTI/yeast infections. She has coexisting HF and CKD which her SGLT2 and GLP-1 RA will provide benefit for. Related to senior care (current) use of insulin -Urinary symptoms in cluding dysuria, hematuria. -Urinalysis has shown + leuks + nitrites. Given this with symptoms, will start treatment with antibiotics while we wait for culture and sensitivity. -Start cefpodoxime 100mg BID x 7 days. Will adjust if indicated based on C&S results. Related to Acute UTI -Per pre-enrollment (dated 02/17/24 page 5), history of Type 2 diabetes mellitus with neuropathy. She reports she was diagnosed when and then it never resolved after delivery. -08/2024 HbA1c 7.5%. Goal <7.5-8% given ago and comorbidities. -Continue risk reduction and screening for microvascular and macrovascular complications including management of lipids, BP, routine eye exams, routine foot exams, routine labs. -Freestyle Phil showing evidence of hypoglycemia mostly in the morning time. Will reduce Lantus to 24 units, for now continue Humalog sliding scale 6 units starting at 100mg/dL, increase by 2 units per 50mg/dL (max of 16 units per meal), Trulicity 3mg weekly, Jardiance 25mg daily. Never tried other medications. Has been on insulin for a long time. No GI upset. -She had cystitis in May, prescribed Keflex. Denies any other UTI/yeast infections. She has coexisting HF and CKD which her SGLT2 and GLP-1 RA will provide benefits for. Related to Type 2 diabetes mellitus with hypoglycemia without coma, with long-term current use of insulin -Per pre-enrollment (dated 02/17/24 page 5), history of Type 2 diabetes mellitus with neuropathy. She reports she was diagnosed when and then it never resolved after delivery. -08/2024 HbA1c 7.5%. Goal <7.5-8% given ago and comorbidities. -Continue risk reduction and screening for microvascular and macrovascular complications including management of lipids, BP, routine eye exams, routine foot exams, routine labs. -Freestyle Phil showing evidence of hypoglycemia mostly in the morning time. Will reduce Lantus to 24 units, for now continue Humalog sliding scale 6 units starting at 100mg/dL, increase by 2 units per 50mg/dL (max of 16 units per meal), Trulicity 3mg weekly, Jardiance 25mg daily. Never tried other medications. Has been on insulin for a long time. No GI upset. -She had cystitis in May, prescribed Keflex. Denies any other UTI/yeast infections. She has coexisting HF and CKD which her SGLT2 and GLP-1 RA will provide benefits for. 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 Tends to worsen with changes in the weather. -She finds Tylenol helps with pain. Script sent for PRN Tylenol to have on hand. Related to Generalized osteoarthritis -Per pre-enrollment (dated 02/17/24 page 1), history of hypertension, CKD. She also carried a history of heart failure initially reported as reduced EF however EF noted to have normalized on 05/2024 echo. -See HFpEF. See CKD3.-BP goal <140/90. She is meeting this goal today. Continue metoprolol, spironolactone. Related to Hypertensive heart and chronic kidney disease with heart failure -CKD3: 08/2024 urine albumin/creatinine ratio 108, eGFR 52, creatinine 1.17, BUN 29. 05/2024 eGFR 55, creatinine 1.13. -Avoid nephrotoxins, encourage hydration, BP management, routine labs. Continue SGLT2 for cardiorenal benefits. Related to Stage 3a chronic kidney disease -Kati confirms alvin merritt has a long history of heart failure. She calls it congestive heart failure and says she was previously following with cardiology at [facility]. -EF was previously reduced however last echo 05/2024 showed normalized EF 70-75%, aortic valve moderately calcified with moderate aortic stenosis, no aortic regurgitation. Unable to assess diastolic function due to mitral annular calcification. -She is on isosorbide (alternative to ACEI as she has an allergy to lisinopril), metoprolol, spironolactone, SGLT2 inhibitor and GLP-1 RA. -Will work on obtaining cardiology records. Related to Chronic heart failure with preserved ejection fraction (HFpEF) -Per pre-enrollment (dated 02/17/24 page 1), history of hypothyroidism. -Back in April 2024 her TSH was 0.25 and then in May 2024 it was 24. -08/2024 TSH 0.31, FT4 1.7. Levothyroxine reduced in mid-August to 125mcg daily. Related to Hypothyroidism, unspecified type -Per pre-enrollment (dated 02/17/24 page 5), history of Type 2 diabetes mellitus with neuropathy. She reports she was diagnosed when and then it never resolved after delivery. -08/2024 HbA1c 7.5%. Goal <7.5-8% given ago and comorbidities. -Continue risk reduction and screening for microvascular and macrovascular complications including management of lipids, BP, routine eye exams, routine foot exams, routine labs. -Continue Lantus 30 units daily, Humalog sliding scale 6 units starting at 100mg/dL, increase by 2 units per 50mg/dL (max of 16 units per meal), Trulicity 3mg weekly, Jardiance 25mg daily. Never tried other medications. Has been on insulin for a long time. No GI upset. -She had cystitis in May, prescribed Keflex. Denies any other UTI/yeast infections. She has coexisting HF and CKD which her SGLT2 and GLP-1 RA will provide benefits for. -She is waiting on her [employer] Phil 3 to arrive. I have sent a message to check on it. She reports checking 4 times daily, intermittently over 200mg/dL r/t eating higher carb foods. Will hold off on any adjustments to medications today. 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 She reports she was diagnosed when and then it never resolved after delivery. -08/2024 HbA1c 7.5%. Goal <7.5-8% given ago and comorbidities. -Continue risk reduction and screening for microvascular and macrovascular complications including management of lipids, BP, routine eye exams, routine foot exams, routine labs. -Continue Lantus 30 units daily, Humalog sliding scale 6 units starting at 100mg/dL, increase by 2 units per 50mg/dL (max of 16 units per meal), Trulicity 3mg weekly, Jardiance 25mg daily. Never tried other medications. Has been on insulin for a long time. No GI upset. -She had cystitis in May, prescribed Keflex. Denies any other UTI/yeast infections. She has coexisting HF and CKD which her SGLT2 and GLP-1 RA will provide benefits for. -She is waiting on her [employer] Phil 3 to arrive. I have sent a message to check on it. She reports checking 4 times daily, intermittently over 200mg/dL r/t eating higher carb foods. Will hold off on any adjustments to medications today. Related to Type 2 diabetes mellitus with hyperglycemia, with long-term current use of insulin -See T2DM with hyper glycemia for further details on management of glucose.-CKD3: 08/2024 urine albumin/creatinine ratio 108, eGFR 52, creatinine 1.17, BUN 29. 05/2024 eGFR 55, creatinine 1.13. -Microalbuminuria present on enrollment labs, unknown duration. -She has an allergy listed to lisinopril. I do not see that she is on an ARB although she has mentioned she was taken off two cardiac medications not too long ago, unclear time or reason. She will follow up with cardiology. -Continue Jardiance.-Repeat urine microalbumin in 6-12 months. Related to Type 2 diabetes mellitus with microalbuminuria -See T2DM with hyper glycemia for further details on management of glucose.-CKD3: 08/2024 urine albumin/creatinine ratio 108, eGFR 52, creatinine 1.17, BUN 29. 05/2024 eGFR 55, creatinine 1.13. -Microalbuminuria present on enrollment labs, unknown duration. -She has an allergy listed to lisinopril. I do not see that she is on an ARB although she has mentioned she was taken off two cardiac medications not too long ago, unclear time or reason. She will follow up with cardiology. -Continue Jardiance.-Repeat urine microalbumin in 6-12 months. Related to Proteinuria, unspecified -Per pre-enrollment (dated 02/17/24 page 5), history of obstructive sleep apnea.-Kati reports using her CPAP every night. She typically receives her supplies from [employer]. I will send a message to our nursing staff to check on this. Related to Obstructive sleep apnea -Per echo ([facility] 05/10/24) there is moderate aortic stenosis. -She reportedly follows with cardiology. We are still trying to obtain these records to determine history and plan for this. Related to Aortic valve stenosis, etiology of cardiac valve disease unspecified -Per echo ([facility] 05/10/24), there is moderate to severe mitral annular calcification. The mitral valve mean gradient is moderately elevated, 8 mmHg at heart rate 55 bpm. There is progressive (mild) mitral stenosis by continuity equation mitral valve area estimation of 1.9 cm2. There is trace mitral regurgitation .-Consider repeat imaging in 2024, sooner if symptoms develop. Related to Mitral valve stenosis, unspecified etiology -Per pre-enrollment (dated 02/17/24 page 1), history of hypertension, CKD. Heart failure is mentioned once in the records however last echo did not support it. Will request more records, hopefully from cardiology to better understand the full picture. -BP goal <140/90. She is meeting this goal today. She says she was previously on two more medications for her blood pressure that were discontinued but she cannot recall what they were. -CKD3: 08/2024 urine albumin/creatinine ratio 108, eGFR 52, creatinine 1.17, BUN 29. 05/2024 eGFR 55, creatinine 1.13. -Avoid nephrotoxins, encourage hydration, BP management, routine labs. Related to Hypertensive kidney disease with stage 3a chronic kidney disease -Per pre-enrollment (dated 02/17/24 page 1), history of hypothyroidism. -Currently managed on levothyroxine 137mcg. Back in April 2024 her TSH was 0.25 and then in May 2024 it was 24. -08/2024 TSH 0.31, FT4 1.7. -Will reduce levothyroxine to 125mcg daily. Related to Hypothyroidism, unspecified type -Per pre-enrollment (dated 02/17/24 page 5), history of Type 2 diabetes mellitus with neuropathy. She reports she was diagnosed with diabetes when and then it never resolved after delivery. Unclear when she developed neuropathy. -See T2DM with hyperglycemia for further details on management of glucose.-We will assist with nail care in clinic as needed and refer out to podiatry if indicated. Nails are well trimmed today.-No history of wounds or amputations. Encouraged her to report any changes in her skin integrity or symptoms. -Pain well managed at present with only mild symptoms. Related to Type 2 diabetes mellitus with diabetic neuropathy, with long-term current use of insulin -See morbid obesity. -BMI 41.96. Related to Body mass index (BMI) of 40.1 to 44.9 in adult -Per pre-enrollment. -LDL goal < 70.-08/2024 TC 119, HDL 27, LDL 69, TG 157 (non-fasting).-Meals prepared by [facility], limited physical activity. -Continue rosuvastatin 40mg daily, ezetimibe 10mg daily.-Continue periodic labs. Related to Hyperlipidemia, unspecified hyperlipidemia type -Per pre-enrollment (dated 02/17/24 page 1), history of morbid obesity. -Significant comorbidities including HTN, HLD, T2DM, CKD. -BMI today 41.96. -Continue GLP-1 RA with plan to increase dose at next visit after review of blood sugars. Wheel Press Clerk to assess as part of enrollment process. Related to Morbid obesity -Per pre-enrollment (dated 02/17/24 page 5), history of unspecified anxiety disorder. Kati says this is chronic and she also had depression. -She reports having seen a therapist about 3 years ago and found it helpful. She is interested in seeing a therapist again. I will reach out to Dilma to have her assess. -Continue escitalopram 10mg daily. Related to Anxiety disorder, unspecified type -See T2DM with hyper glycemia for further details on management of glucose.-CKD3: 08/2024 urine albumin/creatinine ratio 108, eGFR 52, creatinine 1.17, BUN 29. 05/2024 eGFR 55, creatinine 1.13. -Microalbuminuria present on enrollment labs, unknown duration however I do see it is mentioned in nephrology note Dr. Duran 08/2023. -She has an allergy listed to lisinopril. I do not see that she is on an ARB although she has mentioned she was taken off two cardiac medications not too long ago, unclear time or reason. She will follow up with cardiology. -Continue Jardiance. Related to Type 2 diabetes mellitus with microalbuminuria -See T2DM with hyper glycemia for further details on management of glucose.-CKD3: 08/2024 urine albumin/creatinine ratio 108, eGFR 52, creatinine 1.17, BUN 29. 05/2024 eGFR 55, creatinine 1.13. -Microalbuminuria present on enrollment labs, unknown duration. -She has an allergy listed to lisinopril. I do not see that she is on an ARB although she has mentioned she was taken off two cardiac medications not too long ago, unclear time or reason. She will follow up with cardiology. -Continue Jardiance. Related to Proteinuria, unspecified -See T2DM with hyper glycemia for further details on management of glucose.-CKD3: 08/2024 urine albumin/creatinine ratio 108, eGFR 52, creatinine 1.17, BUN 29. 05/2024 eGFR 55, creatinine 1.13. -Avoid nephrotoxins, encourage hydration, BP management, routine labs. Related to Chronic kidney disease, stage 3a -See T2DM with hyper glycemia for further details on management of glucose.-CKD3: 08/2024 urine albumin/creatinine ratio 108, eGFR 52, creatinine 1.17, BUN 29. 05/2024 eGFR 55, creatinine 1.13. -Avoid nephrotoxins, encourage hydration, BP management, routine labs. Related to Type 2 diabetes mellitus with stage 3a chronic kidney disease, with long-term current use of insulin -Trulicity 3mg weekly. Related t o Long-term (current) use of injectable non-insulin antidiabetic drugs -Per pre-enrollment (dated 02/17/24 page 5), history of Type 2 diabetes mellitus with neuropathy. She reports she was diagnosed when and then it never resolved after delivery. -08/2024 HbA1c 7.5%. Goal <7.5-8% given ago and comorbidities. -Continue risk reduction and screening for microvascular and macrovascular complications including management of lipids, BP, routine eye exams, routine foot exams, routine labs. -Continue Lantus 30 units daily, Humalog sliding scale 6 units starting at 100mg/dL, increase by 2 units per 50mg/dL (max of 16 units per meal), Trulicity 3mg weekly, Jardiance 25mg daily. Never tried other medications. Has been on insulin for a long time. No GI upset. -She had cystitis in May, prescribed Keflex. Denies any other UTI/yeast infections. She has coexisting HF and CKD which her SGLT2 will provide benefits for. -She is interested in starting a Freestyle Phil CGM. She is a good candidate for this given that she is on MDI and has a history of severe hypoglycemia in the past with loss of consciousness. (lowest recently is 90mg/dL). Scripts sent. Will also prescribe glucose tabs for her to have on hand for hypoglycemia treatment should it recur. -No changes made to her diabetes medications today until we have more data to determine if there are any patterns in her numbers. She reports she is usually I the l ow 100s ; was 134mg/dL this morning, unclear how often she is truly checking. Related to Type 2 diabetes mellitus with hyperglycemia, with long-term current use of insulin -Per pre-enrollment (dated 02/17/24 page 5), history of Type 2 diabetes mellitus with neuropathy. She reports she was diagnosed when and then it never resolved after delivery. -08/2024 HbA1c 7.5%. Goal <7.5-8% given ago and comorbidities. -Continue risk reduction and screening for microvascular and macrovascular complications including management of lipids, BP, routine eye exams, routine foot exams, routine labs. -Continue Lantus 30 units daily, Humalog sliding scale 6 units starting at 100mg/dL, increase by 2 units per 50mg/dL (max of 16 units per meal), Trulicity 3mg weekly, Jardiance 25mg daily. Never tried other medications. Has been on insulin for a long time. No GI upset. -She had cystitis in May, prescribed Keflex. Denies any other UTI/yeast infections. She has coexisting HF and CKD which her SGLT2 will provide benefits for. -She is interested in starting a Freestyle Phil CGM. She is a good candidate for this given that she is on MDI and has a history of severe hypoglycemia in the past with loss of consciousness. (lowest recently is 90mg/dL). Scripts sent. Will also prescribe glucose tabs for her to have on hand for hypoglycemia treatment should it recur. -No changes made to her diabetes medications today until we have more data to determine if there are any patterns in her numbers. She reports she is usually I the l ow 100s ; was 134mg/dL this morning, unclear how often she is truly checking. Related to senior care (current) use of insulin Assessments Type Assessment Date No Information Goals Health Concern Goal Type Priority Status Date Kati is at risk for functional decline related to overall general weakness and poor balance . Right knee OA and chronic pain left shoulder Kati will improve self transfers and self ADL care by next review Patient Goal New Kati has depression and anxiety related to her decline in overall function and incontinence. Kati will identify coping strategies, and utilize these strategies during increased feelings of depression and anxiety. Patient Goal Continued Kati has anxiety and depression related to her medical conditions. Kati will identify coping strategies, and utilize these strategies during increased feelings of depression. Patient Goal Continued Kati is at risk for falls due to diabetes, chronic hip pain, class III obesity and neuropathy Kati will not experience any falls or fall related injuries for 6 months. Patient Goal Continued
--- NOTE | 2025-07-06 09:17 | CA_ITS ---
Transthoracic Echocardiogram Patient (Last, First, Middle): Kati Szymanski, Gender: F Date of : 1960 Age: 64 Procedure Date: 07/06/2025 Procedure Type: Transthoracic Echocardiogram Location: OP Height: 157.48 cm Weight: 122.47 kg BSA: 2.17 m2 Heart Rate: bpm BP: 148 / 70 mmHg Merchandise Flow Team Member: TO Referring MD: Raheem Schulte MD Symptoms: I35.0 - Nonrheumatic aortic (valve) stenosis Study Quality: Fair/Contrast ECG Rhythm: Sinus Conclusions: - The left ventricular systolic function is normal. The calculated ejection fraction is 60% by biplane method. - Evidence suggests grade II (moderate) diastolic dysfunction. - There is severe aortic valve stenosis. - Mitral annular calcification with calcific mitral stenosis. - Moderate pulmonary hypertension is present. Findings Procedure Information Contrast agent, definity, is being given per protocol without apparent complications. Left Ventricle Normal left ventricular cavity size. The left ventricular systolic function is normal. The calculated ejection fraction is 60% by biplane method. There is no evidence of regional wall motion abnormalities. Evidence suggests grade II (moderate) diastolic dysfunction. There is mild septal asymmetric hypertrophy. Right Ventricle Normal right ventricular cavity size and systolic function. Atria The left atrium is moderately dilated. The right atrium is normal in size. Aortic Valve There is severe calcification of the aortic valve. There is severe aortic valve stenosis. The peak aortic velocity is 3.42 m/s with a calculated peak gradient of 47 mmHg. The mean gradient is 29 mmHg. The aortic valve area is 0.75 cm2. Dimensionless index 0.23. Stroke volume index 33ml/m2. Mitral Valve There is moderate mitral annular calcification. There is mild mitral valve regurgitation. Suggestion of calcific mitral stenosis. Pulmonic Valve The pulmonic valve is likely normal. Tricuspid Valve There is mild to moderate tricuspid valve regurgitation. The right ventricular systolic pressure is 58 mmHg. Moderate pulmonary hypertension is present. Great Vessels The asc aorta is normal in size. Small plaque is seen in the sino tubular ridge. Venous The inferior vena cava is mildly dilated and collapses less than 50% with inspiration. Pericardium/Pleural There is a trivial pericardial effusion. Prior Study Comparison Changes noted compared to prior study dated: 05/21/2023. Progression of aortic valve stenosis. Worsening pulmonary hypertension Measurements 2D Linear Measurements IVSd: 1.06 0.6-0.9/0.6-1.0 cm LVIDd: 5.02 3.9-5.3/4.2-5.9 cm LVIDd Index: 2.31 2.4-3.2/2.2-3.1 cm/m2 LVIDs: 3.05 2.0-3.6 cm LVPWd: 0.88 0.7-1.1 cm LA Diam: 4.40 2.7-3.8/3.0-4.0 cm LAIDs Index: 2.03 1.5-2.3 cm/m2 LV Mass: 218.77 67-162/88-224 g LV Mass Index: 100.82 43-95/49-115 g/m2 LVOT Diam: 2.00 3.0+(-)1.3 cm 2D Systolic Function EF 4C: 56.50 >55% EF 2C: 61.30 >55% EF BiP: 59.90 >55% Mitral Valve MV VTI: 0.53 MV Pk Jacinto: 2.03 MV Mn Jacinto: 1.04 MV Pk Grad: 16.00 MV Mn Grad: 5.00 MV Pk E: 1.92 MV PK A: 0.90 MV Decel Time: 233.00 E/A: 2.10 E'Lateral: 4.03 E'Medial: 4.35 E/E' Med: 44.10 E/E' Lat: 47.60 PHT: 68.00 MVA PHT: 3.24 MVA Continuity: 1.37 Decel Gila: 8.22 Aortic Valve AoV Pk Jacinto: 3.42 AoV Mn Jacinto: 2.57 AoV VTI: 0.96 AoV Pk Grad: 47.00 Aov Mn Grad: 29.00 VICTOR MANUEL Cont.VTI: 0.75 LVOT LVOT Pk Jacinto: 0.79 LVOT Mn Jacinto: 0.56 LVOT VTI: 0.23 LVOT Pk Grad: 3.00 LVOT Mn Grad: 1.00 LVOT Diam: 2.00 LVOT Area: 3.14 Diastolic Function MV Pk E: 1.92 MV Pk A: 0.90 E/A: 2.10 E'Medial: 4.35 E/E' Med: 44.10 E' Laterial: 4.03 E/E' Lat: 47.60 Right Ventricle TAPSE (mm): 21.70 TVS' Jacinto: 10.10 Tricuspid Valve TR Pk Jacinto: 3.27 TR Pk Grad: 43.00 RA Press: 15.00 RVSP: 58.00 Great Vessels Aorta Sinus of Valsalva: 2.50 2.0-3.[address] Ridge: 1.91 1.7-3.4 cm Ao Asc: 2.90 2.1-3.4 cm Updated in Other Vendor System with Status of Final Elvin Parmar MD electronically signed on 07/08/2025 2:11:51 PM with status of Final
--- OUTSIDE RECORDS SUMMARY | 2025-07-06 09:59 | XMS_ITS | Encounter Summary ---
Author Organization [employer] Address [address] [place] [address] [address] [place] [address] Care Team Providers Care Drawing Instructor Name Role Phone Fatmata Sky MD Primary Care Provider [phone] Kenney Hyman CNP Primary Care Provider [phone] Reason for Visit * Reason Onset Date Comments Nurse Triage 07/07/2024 Encounter Details Date Type Department Care Team ([facility] Contact Info) Description 07/07/2024 Telephone [facility] [address] [place] [address] Fatmata Sky MD [address] [place] [address] Nurse Triage Social History Tobacco Use Types Packs/Day Years Used Date Smoking Tobacco: Former Cigarettes Smokeless Tobacco: Never Alcohol Use Standard Drinks/Week Comments Never 0 (1 standard drink = 0.6 oz pur e alcohol) Depression Answer Date Recorded Patient Health Questionnaire-9 Score 0 09/09/2023 Patient Health Questionnaire-9 Score 0 09/09/2023 Last PHQ-9: Questionnaire Data Not on file 1 11/10/2022 Housing Stability Answer Date Recorded What is your housing situation today? I have jaesisi santacruz 07/20/[address] you li ve. Do you have problems with any of the following? None of the above 07/20/2023 Food Insecurity Answer Date Recorded Within the past 12 months, y ou worried that your food would run out before you got money to buy more: Never True 07/20/2023 Within the past 12 months,th e food you bought just didn't last and you didn't have enough money to get more: Never True Transportation Answer Date Recorded In the past 12 months, has l ack of transportation kept you from medical appts, meetings, work or from getting things needed for daily living? No 07/20/2023 Utilities Answer Date Recorded In the past 12 months, has t he electric, gas, oil or water company threatened to shut off services in your home? No 07/20/2023 Depression Answer Date Recorded Patient Health Questionnaire-2 Score 0 09/09/2023 Comments Unknown Sex and Gender Information Value Date Recorded Sex Assigned at Female 08/04/2022 10:20 AM EDT Legal Sex Female 10:20 AM EDT Gender Identity Choose not to disclose 10:20 AM EDT Sexual Orientation Choose not to disclose 2021 10:20 AM EDT documented as of this encounter Miscellaneous Notes * Telephone Encounter - Norma Vicente RN - 07/07/2024 1:24 PM EDT Called pt. Pt. States that she has been achy on her wrists bilateral but, left wrist is achy all down to her fingers since this am. Pt. States she also has been vomiting today and blood sugar 184. Ptjust took blood sugar x 10 minutes ago. Advised that pt. Does have a sliding scale Lispro insulin and according to parameters she should take 6 units now. I advised pt. To try to sip on water. Pt. Islooking for Zofran to reduce her nausea and also is requesting the Pharmacy to send her Covid test.Pt. States she lives in assisted living but, they have no Covid tests there and was hoping that Covid test could be ordered through Pharmacy and brought to pt. Pt. States that there is a daily nurse in assisted living and she will check with nurse to see when they will get another supply of Covid tests. Called pt. Pharmacy [facility] and they state that they do not supply Covid tests from their Pharmacy. Pt. Will check with assisted living on Covid test but is still requesting Zofran for nauseaand vomiting. Please advise and have team nurse let pt. Know if zofran was approved. Protocol Used: Vomiting (Adult) Protocol-Based Disposition: See in Office or Video Visit Today Video visit not offered Positive Triage Question: * Mild to Moderate vomiting (e.g., 1-5 times/day) and lasts > 48 hours (2 days) * All higher-acuity triage questions were negative Care Advice Discussed: * Clear Liquids * Telephone Encounter - Aline Brown - 07/07/2024 1:20 PM EDT Patient calling to report hand swelling Patient speaks Kazakh. Advised triage nurse will call patient back. documented in this encounter Plan of Treatment Not on file documented as of this encounter Visit Diagnoses Not on filedocumented in this encounter Additional Health Concerns Assessment Noted Time PHQ-9 Depression Total Score: 0 09/09/20 23 9:48 AM EST documented as of this encounter Care Teams Drawing Instructor Relationship Specialty Start Date End Date Fatmata Sky MD [address] [place] [address] PCP - General Family Medicine 10/05/18 05/15/25 Kenney Hyman CNP [address] [place] [address] PCP - General Family Medicine 05/16/25 Ruben 01/30/24 documented as of this encounter
--- OUTSIDE RECORDS SUMMARY | 2025-07-06 09:59 | XMS_ITS | Encounter Summary ---
Author Organization [employer] Address [address] [place] [address] 7 [place] [address] Care Team Providers Care Hat Forming Machine Operator Name Role Phone Fatmata Sky MD Primary Care Provider [phone] Kenney Hyman CNP Primary Care Provider [phone] Reason for Visit * Reason Comments Med Refill Encounter Details Date Type Department Care Team ([facility] st Contact Info) Description 11/13/2022 Refill [facility] MEDICINE 230 [place], [place] [phone] Fatmata Sky MD [address] [place] [address] [phone] Type 2 diabetes mellitus with hyperglycemia (CMS/HCC) Social History Tobacco Use Types Packs/Day Years Used Date Smoking Tobacco: Never Assessed Comments Unknown Sex and Gender Information Value Date Recorded Sex Assigned at Female 08/04/2022 10:20 AM EDT Legal Sex Female 10:20 AM EDT Gender Identity Choose not to disclose 10:20 AM EDT Sexual Orientation Choose not to disclose 2021 10:20 AM EDT documented as of this encounter Plan of Treatment Not on file documented as of this encounter Visit Diagnoses Diagnosis Type 2 diabetes mellitus with hyperglycemia (HCC) documented in this encounter Care Teams Hat Forming Machine Operator Relationship Specialty Start Date End Date Fatmata Sky MD 230 [place] [address] PCP - General Family Medicine 10/05/18 05/15/25 Kenney Hyman CNP [address] [facility] [place] [address] PCP - General Family Medicine 05/16/25 Ruben 01/30/24 documented as of this encounter
--- OUTSIDE RECORDS SUMMARY | 2025-07-06 09:59 | XMS_ITS | Encounter Summary ---
Author Organization [employer] Address [address] [facility] 7t [place] [address] Care Team Providers Care Highway Safety Engineer Name Role Phone Fatmata Sky MD Primary Care Provider [phone] Kenney Hyman CNP Primary Care Provider [phone] Encounter Details Date Type Department Care Team ([facility] st Contact Info) Description 07/07/2024 Orders Only [facility] CHC MED & PEDS 505 [place], [place] [phone] Teetee Guillory MD 505 [place] [address] Nausea (Primary Dx) Social History Tobacco Use Types Packs/Day Years [...] is your housing situation today? I have jae santacruz 07/20/[address] you [...] enough money to get more: Never True 10/ Transportation Answer Date Recorded In the past [...] as of this encounter Visit Diagnoses Diagnosis Nausea- Primary Nausea alone documented in this encounter Additional Health Concerns Assessment Noted Time PHQ-9 Depression Total Score: 0 09/09/20 23 9:48 AM EST documented as of this encounter Care Teams Highway Safety Engineer Relationship Specialty Start Date End Date Fatmata Sky MD 230 [place] [address] PCP - General Family Medicine 10/05/18 05/15/25 Kenney Hyman CNP 230 [place] [address] PCP - General Family Medicine 05/16/25 [facility] documented as of this encounter
--- OUTSIDE RECORDS SUMMARY | 2025-07-06 09:59 | XMS_ITS | Encounter Summary ---
Author Organization [employer] Address [address] [facility] 7t [place] [address] Care Team Providers Care Brush Finisher Name Role Phone Fatmata Sky MD Primary Care Provider [phone] Kenney Hyman CNP Primary Care Provider [phone] Reason for Visit * Reason Onset Date Comments Call Back Request 11/06/2023 Encounter Details Date Type Department Care Team ([facility] st Contact Info) Description 11/06/2023 Telephone [facility] MEDICINE 230 [place], [place] [phone] Fatmata Sky MD [address] [place], [place] [phone] Call Back Request Social History Tobacco Use Types Packs/Day Years [...] encounter Miscellaneous Notes * Telephone Encounter - Fatmata Sky MD - 11/10/2023 9:43 AM EST Called Krissy and [facility]O . Regarding pt - she is capable of making her own decisions * Telephone Encounter - Brneda Paige - 11/06/2023 11:38 AM EST Tc from Krissy with Adult Protective Services Krissy have questions and concerns with the pt, they wanted to know if the pt can make her own decision, if have mental health issues and if the PCP have any other concern. Krissy is requesting a call back to Vaishali [phone] Ext [phone] documented in this encounter Plan of Treatment Not on file documented as of this encounter Visit Diagnoses Not on filedocumented in this encounter Additional Health Concerns Assessment Noted Time PHQ-9 Depression Total Score: 0 09/09/20 23 9:48 AM EST documented as of this encounter Care Teams Brush Finisher Relationship Specialty Start Date End Date Fatmata Sky MD [address] [place] [address] PCP - General Family Medicine 10/05/18 05/15/25 Kenney Hyman CNP [address] [facility] [place] [address] PCP - General Family Medicine 05/16/25 Ruben 01/30/24 documented as of this encounter
--- OUTSIDE RECORDS SUMMARY | 2025-07-06 09:59 | XMS_ITS | Encounter Summary ---
Author Organization [employer] Address [address] [place] [address] 7t [place] [address] Care Team Providers Care Binder Stripper Machine Name Role Phone Fatmata Sky MD Primary Care Provider [phone] Kenney Hyman CNP Primary Care Provider [phone] Encounter Details Date Type Department Care Team (Late st Contact Info) Description 10/16/2022 Orders Only [facility] CHC MED & PEDS [address] [place] [address] Nalini Kovacs LPN Social History Tobacco Use Types Packs/Day Years [...] Diagnoses Not on filedocumented in this encounter Care Teams Binder Stripper Machine Relationship Specialty Start Date End Date Fatmata Sky MD 230 [place] [address] PCP - General Family Medicine 10/05/18 05/15/25 Kenney Hyman CNP 230 [place] [address] PCP - General Family Medicine 05/16/25 [facility] 01/30/24 documented as of this encounter
--- OUTSIDE RECORDS SUMMARY | 2025-07-06 09:59 | XMS_ITS | Encounter Summary ---
Author Organization [email or web address] Address [address] [place] [address] Care Team Providers Care Historical Site Guide Name Role Phone Fatmata Sky MD Primary Care Provider [phone] Kenney Hyman CNP Primary Care Provider [phone] Reason for Visit * Reason Comments Med Refill Encounter Details Date Type Department Care Team (Late st Contact Info) Description 06/09/2023 Refill [facility] MEDICINE 230 [place], [place] [phone] Teetee Guillory MD [address] [place] [address] [phone] Acquired hypothyroidism Social History Tobacco Use Types Packs/Day Years [...] as of this encounter Visit Diagnoses Diagnosis Acquired hypothyroidism Unspecified hypothyroidism documented in this encounter Care Teams Historical Site Guide Relationship Specialty Start Date End Date Fatmata Sky MD 230 [place] [address] PCP - General Family Medicine 10/05/18 05/15/25 Kenney Hyman CNP 230 [place] [address] PCP - General Family Medicine 05/16/25 Ruben 01/30/24 documented as of this encounter
--- OUTSIDE RECORDS SUMMARY | 2025-07-06 09:59 | XMS_ITS | Encounter Summary ---
Author Organization [employer] Address [address] [facility] 7t [place] [address] Care Team Providers Care Coordinate Measuring Machine Operator Name Role Phone Fatmata Sky MD Primary Care Provider [phone] Kenney Hyman CNP Primary Care Provider [phone] Reason for Visit * Reason Onset Date Comments Verbal Orders 02/01/2024 Encounter Details Date Type Department Care Team ([facility] st Contact Info) Description 02/01/2024 Telephone [facility] MEDICINE 230 [place] [address] Fatmata Sky MD [address] [place], [place] [phone] Verbal Orders Social History Tobacco Use Types Packs/Day Years [...] encounter Miscellaneous Notes * Telephone Encounter - Wing Zoraida RN - 02/02/2024 12:02 PM EDT Please advise, tc to Monet Gabriel, clarified that she is asking for a verbal order for nursing care twice a week for the first three weeks, then once a week for the following six weeks. She will call PTto inquire on pt situation as pt reported to have swollen feet due to CHF and can't put shoes. Willtry to work on getting a HDF appt for pt once more information is known about pt;s status as she isin PT as mentioned and moved into new apartment. Monet Gabriel verbalized understanding and agreement with plan. * Telephone Encounter - Wing Zoraida RN - 02/01/2024 2:05 PM EDT Tc to [facility] to confirm order details and request. Told that Monet Gabriel was on another line andwould call back. * Telephone Encounter - Lars Araujo - 02/01/2024 1:43 PM EDT Tc from Monet Gabriel at [facility] requesting a verbal order for nursing care 1 a week for 3 weeks and medication reconciliation and would like home care for 2 a week for 4 weeks then 1 a week for 4 weeks documented in this encounter Plan of Treatment Not on file documented as of this encounter Visit Diagnoses Not on filedocumented in this encounter Additional Health Concerns Assessment Noted Time PHQ-9 Depression Total Score: 0 09/09/20 23 9:48 AM EST documented as of this encounter Care Teams Coordinate Measuring Machine Operator Relationship Specialty Start Date End Date Fatmata Sky MD 230 [place] [address] PCP - General Family Medicine 10/05/18 05/15/25 Kenney Hyman CNP 230 [place] [address] PCP - General Family Medicine 05/16/25 [facility] documented as of this encounter
--- OUTSIDE RECORDS SUMMARY | 2025-07-06 09:59 | XMS_ITS | Encounter Summary ---
Author Organization [employer] Address [address] [place] [address] 7t [place] [address] Care Team Providers Care Nutrition Services Assistant Name Role Phone Fatmata Sky MD Primary Care Provider [phone] Kenney Hyman CNP Primary Care Provider [phone] Encounter Details Date Type Department Care Team (Late st Contact Info) Description 03/13/2023 Orders Only [facility] CHC MED & PEDS [address] [place] [address] Nalini Kovacs LPN Social History Tobacco Use [...] on filedocumented in this encounter Care Teams Nutrition Services Assistant Relationship Specialty Start Date End Date Fatmata Sky MD 230 [place] [address] PCP - General Family Medicine 10/05/18 05/15/25 Kenney Hyman CNP 230 [place] [address] PCP - General Family Medicine 05/16/25 [facility] 01/30/24 documented as of this encounter
--- OUTSIDE RECORDS SUMMARY | 2025-07-06 09:59 | XMS_ITS | Clinical Summary ---
Author Organization [employer] Address [address] [facility] 7t [place] [address] Care Team Providers Care Green Pipefitter Name Role Phone Kenney Hyman CNP Primary Care Provider [phone] Allergies Active Allergy Reactions Criticality Noted Date Comments Lisinopril Itching 06/09/2023 Medications * This document contains information received from the source organization and may not represent a complete record from that organization. SM All Day Allergy Relief 10 MG tabletIndications:Seaso nal allergies TAKE ONE TABLET BY MOUTH ONCE DAILY NEEDED 30 tablet 3 023 Active Accu-Chek Guide test strip TEST BLOOD SUGAR FOUR TIMES DAILY 100 strip 11 023 Active Accu-Chek Softclix Lancets lancets TEST BLOOD SUGAR FOUR TIMES DAILY 120 each 11 023 Active hydrOXYzine HCl (Atarax) 10 MG tablet TAKE ONE TABLET EVERY 24 HOURS NEEDED FOR ANXIETY 30 tablet 4 023 Active Blood Glucose Monitoring Suppl (Accu-Chek Guide Me) w/Device kit TEST BLOOD SUGAR FOUR TIMES DAILY 1 kit 024 Active Alcohol Swabs (Alcohol Prep) 70 % padsIndications:Type 2 diabetes mellitus without complication, without long-term current use of insulin (HCC) USE DAILY DIRECTED 90 each 11 024 Active Multiple Vitamins-Minerals (CertaVite Senior/Antioxidant) tablet TAKE ONE TABLET DAILY AT NOON 30 tablet 5 024 Active rosuvastatin (Crestor) 40 MG tabletIndications:Pure hypercholesterolemia TAKE ONE TABLET EVERY NIGHT AT BEDTIME 30 tablet 5 024 Active escitalopram (Lexapro) 10 MG tabletIndications:Depre ssion, unspecified depression type TAKE ONE TABLET DAILY AT NOON 30 tablet 5 Active cholecalciferol (Vitamin D-3) 25 MCG tablet TAKE ONE TABLET DAILY AT NOON 30 tablet Active spironolactone (Aldactone) 25 MG tablet TAKE ONE TABLET EVERY MORNING 30 tablet 5 Active dulaglutide (Trulicity) 3 MG/0.5ML solution pen-injectorIndications :Type 2 diabetes mellitus with hyperglycemia (HCC) INJECT ONE PEN (=3MG) SUBCUTANEOUSLY ONCE A WEEK 2 mL Active aspirin (Aspirin Low Dose) 81 MG EC tabletIndications:HTN (hypertension), benign TAKE ONE TABLET AT NOON 30 tablet Active Melatonin-Pyridoxine ER (Melatonin Advanced Sleep) 10-10 MG tablet controlled-release TAKE 1 TABLET BY MOUTH EVERY DAY IF NEEDED FOR INSOMNIA 30 tablet 5 Active diphenhydrAMINE (Banophen) 25 MG capsuleIndications:Esse ntial hypertension TAKE 1 TO 2 CAPSULES EVERY FOUR TO SIX HOURS NEEDED FOR ITCHING 40 capsule 1 Active metoprolol succinate XL (Toprol-XL) 100 MG 24 hr tablet TAKE 1 TABLET BY MOUTH EVERY DAY 30 tablet Active isosorbide mononitrate ER (Imdur) 30 MG 24 hr tabletIndications:Essen tial hypertension TAKE 1 TABLET BY MOUTH EVERY MORNING 30 tablet 5 Active B-D ULTRAFINE III SHORT PEN 31G X 8 MM misc USE DIRECTED 5 TIMES A DAY TO INJECT INSULIN Active acetaminophen (Tylenol) 325 MG tablet TAKE 2 TABLETS BY MOUTH EVERY 4 HOURS IF NEEDED FOR PAIN OR FEVER 30 tablet Active albuterol 108 (90 Base) MCG/ACT inhaler INHALE 2 PUFFS BY MOUTH EVERY 4-6 HOURS NEEDED SHORTNESS OF BREATH OR FOR WHEEZING 18 g Active ezetimibe (Zetia) 10 MG tablet Take 1 tablet (10 mg) by mouth Once per day. 30 tablet 3 Active insulin lispro (HumaLOG) 100 UNIT/ML injection INJECT 6 TO 16 UNITS SUBCUTANEOUSLY THREE TIMES A DAY BEFORE MEALS PER SLIDING SCALE 100 - 149, 6 units. 150 - 199, 8 units. 200 - 249,10 units; 250 - 299 ,12 units; 300 - 349, 14 units; 350 - 399,16 units. 100 mL 3 Active Lantus SoloStar 100 UNIT/ML pen Inject 30 Units under the skin at bedtime. 3 mL 3 Active levothyroxine (Synthroid, Levoxyl) 137 MCG tablet Take 137 mcg by mouth Once per day. 90 tablet 3 Active empagliflozin (Jardiance) 25 MGIndications:Chronic Renal Disease,Type 2 Diabetes Mellitus TAKE 1 TABLET BY MOUTH EVERY DAY 30 tablet 3 Active ondansetron ODT (Zofran-ODT) 4 MG disintegrating tabletIndications:Nause a and Vomiting Take 4 mg by mouth every 8 (eight) hours if needed for nausea or vomiting. Active Active Problems Problem Noted Date Diagnosed Date Panic attacks 11/03/2023 Diabetes mellitus 08/12/2011 Essential hypertension 08/12/2011 Pure hypercholesterolemia 01/29/2011 Acquired hypothyroidism 12/26/2010 Immunizations Immunization Administration Dates Next Due Hep B, adult 02/26/2016,10/23/2015,09/24/2015 Influenza Injectable Quadriv alant Preservative Free IIV4 MDCK 08/01/2021 Influenza injectable quadriv alent IIV4 with preservative 06/26/2017 Influenza injectable quadriv alent preservative free 09/09/2023,08/06/2020,09/15/2018,09/24 Influenza, High Dose Seasona l, Preservative Free 06/21/2019 Influenza, Split (incl. humberto fied surface antigen) 08/29/2013,07/16/2012 Pneumococcal Polysaccharide PPSV23 07/21/2017 Tdap 09/24/2015 Zoster, Recombinant 07/22/2019,05/20/2019 Social History Tobacco Use Types Packs/Day Years Used Date Smoking Tobacco: Former Cigarettes Smokeless Tobacco: Never Tobacco Cessation:Counseling Given: Not Answered Alcohol Use Standard Drinks/Week Comments Never 0 [...] not to disclose 2021 10:20 AM EDT Last Filed Vital Signs Vital Sign Reading Time Taken Comments Blood Pressure 112/62 09/09/2023 9:42 AM EST Pulse 72 09/09/2023 9:42 AM EST Temperature 36.7 C (98 F) 09/09/2023 9:42 AM EST Respiratory Rate 20 09/09/2023 9:42 AM EST Oxygen Saturation 97% 06/09/2023 10:57 AM EDT Inhaled Oxygen Concentration - - Weight 121 kg (267 lb) 09/09/2023 9:42 AM EST Height 154.9 cm (5' 1 ) 09/09/2023 9:42 AM EST Body Mass Index 50.45 09/09/2023 9:42 AM EST Plan of Treatment Health Maintenance Due Date Last Done Comments CT Colonography 1960 Colonoscopy 1960 Colorectal Cancer Screening 1960 FIT DNA/Cologuard 1960 FIT 1960 FOBT 1960 HIV Screening 1960 Sigmoidoscopy 1960 Disability Screening 1960 Eye Exam 1970 Alcohol/Substance Use Screening 1972 Hepatitis C Screening 1978 Pap Smear 1981 Cervical Cancer Screening 1990 HPV/Cotest 1990 Pneumococcal Vaccine: 50+ Years (2 of 2 - PCV) 07/21/2018 07/21/2017 RSV Patients and Patients Aged 60 years or older (1 - Risk 60-74 years 1-dose series) 2020 Mammogram 10/15/2020 10/15/2018 Diabetes: Urine Protein Screening 02/25/2023 02/25/2022, 02/25/2022, 11/30/2019 Lipid Panel 02/25/2023 02/25/2022 Diabetes: Hemoglobin A1C 12/09/2023 023, 06/09/2023, 02/25/2022, Additional history exists SDOH Screening 05/27/2024 05/27/2023 Depression Screening 09/09/2024 09/09/2023, 09/09/20 Diabetes: Foot Exam 09/09/2024 09/09/2023, 09/09/2023, 09/09/2023, Additional history exists Tobacco Screening 09/09/2024 09/09/2023 COVID-19 Vaccine ( season) 2025 07/09/2021, 12/11/2020, 11/19/2020 Influenza Vaccine (#1) 2025 3, 08/01/2021, 08/06/2020, Additional history exists DTaP/Tdap/Td Vaccines (2 - Td or Tdap) 09/24/2025 09/24/2015 Hepatitis B Vaccines Completed 02/26/2016, 10/23/2015, 09/24/2015 Zoster Vaccines Completed 07/22/2019, 05/20/2019 HIB Vaccines Aged Out No longer eligi ble based on patient's age to complete this topic HPV Vaccines Aged Out No longer eligi ble based on patient's age to complete this topic Hepatitis A Vaccines Aged Out No long er eligible based on patient's age to complete this topic IPV Vaccines Aged Out No longer eligi ble based on patient's age to complete this topic Meningococcal B Vaccine Aged Out No l onger eligible based on patient's age to complete this topic Meningococcal Vaccine Aged Out No phillip liudmila eligible based on patient's age to complete this topic RSV under 20 months Aged Out No longe r eligible based on patient's age to complete this topic Rotavirus Vaccines Aged Out No longer eligible based on patient's age to complete this topic Procedures Procedure Name Priority Date/Time Associated Diagnosis Comments POCT GLYCATED HEMOGLOBIN, TOTAL Routine 09/09/2023 9:46 AM EST Type 2 diabetes mellitus without complication, without long-term current use of insulin ([facility]) [facility]ZZ HISTORICAL LIPID PANEL Routine 02/25/2022 12:47 PM EDT [facility] HISTORICAL MICROALBUMIN/CREATIN INE RATIO, RANDOM URINE Routine 02/25/2022 12:44 PM EDT BI MAMMOGRAM SCREENING BILATERAL Routine 10/15/2018 3:54 PM EST from Last 3 Months or Most Recently Relevant to Health Maintenance Results * (ABNORMAL) POCT A1C (09/09/2023 9:46 AM EST) Pathologist [facility] Hemoglobin A1C 7.4(A) 4.0 - 6.0 % QC Media Lot # [id number] Lot# Expiration Date Blood 09/09/2023 9:46 AM EST Fatmata Sky MD POINT OF CARE TEST ENTER/EDIT OR DERABLES Final Result * (ABNORMAL) LIPID PANEL (02/25/2022 12:47 PM EDT) Cholesterol 122 mg/dL [facility] Comment: Desirable Cholesterol: less than 200 mg/dL Borderline High Cholesterol: 200-239 mg/dL High Cholesterol: greater than 239 mg/dL HDL Cholesterol 22 mg/dL [facility] Comment: Desirable HDL: greater than 40 mg/dL Note: This HDL assay may give artificially low results in patients with liver disease. LDL Cholesterol Calculated 53 mg/dl [facility] Comment: Desirable LDL: less than 100 mg/dL Near Optimal/Above Optimal LDL: 110-129 mg/dL Borderline High LDL: 130-159 mg/dL High LDL: 160-189 mg/dL Very High LDL: greater than or equal to 190 mg/dL Triglycerides 237 mg/dL [facility] Comment: Desirable Triglyceride: less than 150 mg/dL Borderline High Triglyceride 150-199 mg/dL High Triglyceride: 200-499 mg/dL Very High Triglyceride: greater than or equal to 5OO mg/dL Alanine Aminotransferase 16 0 - 31 U/L [facility] Albumin Level 4.0 3.5 - 5.0 g/dL [facility] Alkaline Phosphatase 60 39 - 117 U/L [facility] Anion Gap 16 12 - 20 [facility] Aspartate Amino Transferase 18 5 - 31 U/L [facility] Bilirubin Total 0.6 0.0 - 1.0 mg/dL [facility] Blood Urea Nitrogen 48(H) 9 - 16 mg/dL [facility] Calcium 9.9 8.4 - 10.2 mg/dL [facility] Carbon Dioxide 24 22 - 29 mmol/L [facility] Chloride 100 96 - 108 mmol/L [facility] Creatinine, Serum 1.64(H) 0.5 - 1.4 mg/dL [facility] Estimated Glomerular Filt Rate 32 [facility] Comment: NOTE: For -English individuals, multiply the result by 1.210. Chronic Kidney Disease: Estimated GFR < 60 mL/min/1.73m2 Severe Kidney Disease: Estimated GFR < 15 mL/min/1.73m2 Glucose Fasting 309(H) 60 - 99 mg/dL [facility] Comment: A fasting glucose of 126 mg/dl or greater on more than one occasion is considered diagnostic of diabetes. Potassium 4.4 3.3 - 5.1 mmol/L [facility] Sodium 136 135 - 145 mmol/L [facility] Total Protein 7.7 6.5 - 8.0 g/dL [facility] 02/25/2022 12:4 7 PM EDT us Historical Provider HISTORICAL/NON ORDERABLE LABS Final Result [facility] [address] * MICROALBUMIN/CREATININE RATIO, RANDOM URINE (02/25/2022 12:44 PM EDT) Creatinine Urine 116.16 mg/dL [facility] Microalbum/Creati nine Ratio Ur 243.6 ug/mg cr [facility] Comment: Albumin/Creatinine Ratio Reference Ranges: Normal: < 30 ug/mg creatinine Microalbuminuria: 30 - 300 ug/mg creatinine Clinical Albuminuria: > 300 ug/mg creatinine Microalbumin Urine 283.0 mg/L [facility] 02/25/2022 12:4 4 PM EDT Historical Provider HISTORICAL/NON ORDERABLE LABS Final Result [facility] [address] * DIGITAL BILATERAL SCREEN 1 (10/15/2018 3:54 PM EST) Anatomical Region Laterality Modality Breast Bilateral Mammography 10/15/2018 3:54 PM EST Narrative 10/15/2018 3:55 PM EST Refer to the Notes tab for result details [facility] Procedure: DIGITAL BILATERAL SCREEN 1 Procedure Note Provider, MD Rubén - 12/27/2022 Refer to the Notes tab for result details [facility] Procedure: DIGITAL BILATERAL SCREEN 1 Fatmata Sky MD IMG BI PROCEDURES Final Result from Last 3 Months or Most Recently Relevant to Health Maintenance Insurance [facility] MEDICARE ADVANTAGE HMO Care Teams Green Pipefitter Relationship Specialty Start Date End Date Kenney Hyman CNP PCP - General Family Medicine 05/16/25 Ruben 01/30/24
--- OUTSIDE RECORDS SUMMARY | 2025-07-06 09:59 | XMS_ITS | Encounter Summary ---
Author Organization [employer] Address [address] [place] [address] 7 [place] [address] Care Team Providers Care Fishing Vessel Deckhand Name Role Phone Fatmata Sky MD Primary Care Provider [phone] Kenney Hyman CNP Primary Care Provider [phone] Reason for Visit * Reason Comments Med Refill Encounter Details Date Type Department Care Team ([facility] Contact Info) Description 12/10/2022 Refill [facility] CHC MED & PEDS [address] [place], [place] [phone] Fatmata Sky MD 505 [place] [address] Type 2 diabetes mellitus without complication, with long-term current use of insulin ([facility]) Social History Tobacco Use Types Packs/Day Years [...] Visit Diagnoses Diagnosis Type 2 diabetes mellitus without complication, with long-term current use of insulin ([facility]) documented in this encounter Care Teams Fishing Vessel Deckhand Relationship Specialty Start Date End Date Fatmata Sky MD [address] [place] [address] PCP - General Family Medicine 10/05/18 05/15/25 Kenney Hyman CNP [address] [facility] [place] [address] PCP - General Family Medicine 05/16/25 Ruben 01/30/24 documented as of this encounter
--- OUTSIDE RECORDS SUMMARY | 2025-07-06 09:59 | XMS_ITS | Encounter Summary ---
Author Organization [facility] Address 75 [facility] 7t [place] [address] Care Team Providers Care Vp & General Counsel Name Role Phone Fatmata Sky MD Primary Care Provider Kenney Hyman CNP Primary Care Provider [phone] Reason for Visit * Reason Onset Date Comments Verbal order 01/29/2024 Encounter Details Date Type Department Care Team ([facility] Contact Info) Description 01/29/2024 Telephone [facility] MED & PEDS [address] [place] [address] Fatmata Sky MD 505 [place] [address] Verbal order Social History Tobacco Use Types Packs/Day Years [...] encounter Miscellaneous Notes * Telephone Encounter - Rebeca Rob RN - 02/01/2024 10:13 AM EDT VO provided to [facility] * Telephone Encounter - Fatmata Sky MD - 02/01/2024 9:29 AM EDT Ok to give order * Telephone Encounter - Nate Mccrary RN - 01/29/2024 3:08 PM EDT Please see below and advise if agreeable to VO. Thanks. * Telephone Encounter - Aline Brown - 01/29/2024 2:58 PM EDT Jerry from [facility] with care tenders requesting a verbal order to start pt in PT ,OT, and nursing . Best contact # [phone]. documented in this encounter Plan of Treatment Not on file documented as of this encounter Visit Diagnoses Not on filedocumented in this encounter Additional Health Concerns Assessment Noted Time PHQ-9 Depression Total Score: 0 09/09/20 23 9:48 AM EST documented as of this encounter Care Teams Vp & General Counsel Relationship Specialty Start Date End Date Fatmata Sky MD [address] [place] [address] PCP - General Family Medicine 10/05/18 05/15/25 Kenney Hyman CNP [address] [place] [address] PCP - General Family Medicine 05/16/25 Ruben 01/30/24 documented as of this encounter
--- OUTSIDE RECORDS SUMMARY | 2025-07-06 09:59 | XMS_ITS | Encounter Summary ---
Author Organization [employer] Address [address] [place] [address] 7 [place] [address] Care Team Providers Care Contract Designer Name Role Phone Fatmata Sky MD Primary Care Provider [phone] Kenney Hyman CNP Primary Care Provider [phone] Encounter Details Date Type Department Care Team (Late st Contact Info) Description 02/17/2023 Orders Only [facility] MED & PEDS [address] [place] [address] Chari Her LPN Social History Tobacco Use Types Packs/Day [...] on filedocumented in this encounter Care Teams Contract Designer Relationship Specialty Start Date End Date Fatmata Sky MD [address] [place] [address] PCP - General Family Medicine 10/05/18 05/15/25 Kenney Hyman CNP [address] [place] [address] PCP - General Family Medicine 05/16/25 [facility] 01/30/24 documented as of this encounter
--- OUTSIDE RECORDS SUMMARY | 2025-07-06 09:59 | XMS_ITS | Encounter Summary ---
Author Organization [employer] Address 75 [facility] 7t [place] [address] Care Team Providers Care Forestry Fire Aide Name Role Phone Fatmata Sky MD Primary Care Provider Kenney Hyman CNP Primary Care Provider [phone] Reason for Visit * Reason Onset Date Comments ER Follow-up 11/27/2023 Encounter Details Date Type Department Care Team ([facility] st Contact Info) Description 11/27/2023 Telephone [facility] MEDICINE [address] [place] [address] Fatmata Sky MD [address] [place] [address] ER Follow-up Social History Tobacco Use Types Packs/Day Years [...] Telephone Encounter - Rebeca Rob RN - 12/01/2023 12:42 PM EST Pt was admitted but [facility] outreached pt yesterday stating pt is being discharged to a SNF. No need for HDF until pt is discharged from SNF. * Telephone Encounter - Iftikhar Gamboa - 11/27/2023 4:43 PM EST Patient calling to report ED visit on: Date: 11/25/23 [facility]: [facility] Seen for: High Blood sugar, High blood pressure Patient advised will forward to team nurse for follow up documented in this encounter Plan of Treatment Not on file documented as of this encounter Visit Diagnoses Not on filedocumented in this encounter Additional Health Concerns Assessment Noted Time PHQ-9 Depression Total Score: 0 09/09/20 9:48 AM EST documented as of this encounter Care Teams Forestry Fire Aide Relationship Specialty Start Date End Date Fatmata Sky MD [address] [place] [address] PCP - General Family Medicine 10/05/18 05/15/25 Kenney Hyman CNP 230 [facility] [place] [address] PCP - General Family Medicine 05/16/25 Ruben 01/30/24 documented as of this encounter
--- OUTSIDE RECORDS SUMMARY | 2025-07-06 09:59 | XMS_ITS | Encounter Summary ---
Author Organization [employer] Address 75 [facility] 7t [place] [address] Care Team Providers Care Food Safety Scientist Name Role Phone Fatmata Sky MD Primary Care Provider [phone] Kenney Hyman CNP Primary Care Provider [phone] Reason for Visit * Reason Onset Date Comments Verbal Orders 03/29/2024 Encounter Details Date Type Department Care Team ([facility] st Contact Info) Description 03/29/2024 Telephone [facility] MEDICINE 230 [place] [address] Fatmata Sky MD [address] [place], [place] [phone] Verbal Orders Social History Tobacco Use Types [...] encounter Miscellaneous Notes * Telephone Encounter - Nate Mccrary RN - 03/30/2024 10:41 AM EDT Returned call below to Christiana NARAYAN with [employer] on [phone]. Spoke with Christiana NARAYAN and inform that PCP agreed to verbal orders for nursing service. Christiana NARAYAN states that patient was [place] [facility] [place] for hyperglycemia. Patient will be receiving nursing services 2x a week for 3 weeks and then 1x a week for 6 weeks, and also PT/OT. Will send message to PCP as FYI. Telephone call placed to patient to schedule a hospital discharge follow up appointment. Spoke withpatient who state she is doing good. Patient state she was put on a sliding scale which has been working out pretty good. RN offered to schedule an HDF appointment, patient requesting televisit. Patient report she is currently in assisted living and is not driving. RN offered uber transportation, patient declined and state a televisit would just be easier for her right now. Patient agreed to a teleHDF on 04/15/24 @ 9:30 AM with PCP Asya. * Telephone Encounter - Fatmata Sky MD - 03/29/2024 5:47 PM EDT yes * Telephone Encounter - Nate Mccrary RN - 03/29/2024 12:01 PM EDT Please see message below and advise if agreeable to verbal orders. Thanks. * Telephone Encounter - Brenda Paige - 03/29/2024 10:46 AM EDT Tc from Christiana NARAYAN with [employer] calling requesting verbal orders for nursing services. Please contact at [phone] documented in this encounter Plan of Treatment Not on file documented as of this encounter Visit Diagnoses Not on filedocumented in this encounter Additional Health Concerns Assessment Noted Time PHQ-9 Depression Total Score: 0 09/09/20 23 9:48 AM EST documented as of this encounter Care Teams Food Safety Scientist Relationship Specialty Start Date End Date Fatmata Sky MD [address] [place] [address] PCP - General Family Medicine 10/05/18 05/15/25 Kenney Hyman CNP [address] [place] [address] PCP - General Family Medicine 05/16/25 [facility] 01/30/24 documented as of this encounter
--- OUTSIDE RECORDS SUMMARY | 2025-07-06 09:59 | XMS_ITS | Encounter Summary ---
Author Organization [employer] Address [address] [address] Care Team Providers Care Scientific Software Developer Name Role Phone Fatmata Sky MD Primary Care Provider [phone] Kenney Hyman CNP Primary Care Provider [phone] Reason for Visit * Reason Comments Med Refill Encounter Details Date Type Department Care Team ([facility] st Contact Info) Description 02/17/2023 Refill [facility] MEDICINE [address] [place], [place] [phone] Teetee Guillory MD [address] [place] [phone] Pure hypercholesterolemia; Essential hypertension Social History Tobacco Use Types Packs/Day Years [...] as of this encounter Visit Diagnoses Diagnosis Pure hypercholesterolemia Essential hypertension Unspecified essential hypertension documented in this encounter Care Teams Scientific Software Developer Relationship Specialty Start Date End Date Fatmata Sky MD [address] [place] [address] PCP - General Family Medicine 10/05/18 05/15/25 Kenney Hyman CNP [address] [place] [address] PCP - General Family Medicine 05/16/25 Ruben 01/30/24 documented as of this encounter
--- OUTSIDE RECORDS SUMMARY | 2025-07-06 09:59 | XMS_ITS | Encounter Summary ---
Author Organization [employer] Address [address] [place] [address] Care Team Providers Care Director Of Medical Staff Services Name Role Phone Fatmata Sky MD Primary Care Provider [phone] Kenney Hyman CNP Primary Care Provider [phone] Reason for Visit * Reason Comments Med Refill Encounter Details Date Type Department Care Team ([facility] st Contact Info) Description 02/17/2023 Refill [facility] MEDICINE 230 [place] [address] Teetee Guillory MD [address] [place] [phone] Seasonal allergies Social History Tobacco Use Types Packs/Day Years [...] as of this encounter Visit Diagnoses Diagnosis Seasonal allergies Allergic rhinitis, cause unspecified documented in this encounter Care Teams Director Of Medical Staff Services Relationship Specialty Start Date End Date Fatmata Sky MD [address] [place] [address] PCP - General Family Medicine 10/05/18 05/15/25 Kenney Hyman CNP [address] [place] [address] PCP - General Family Medicine 05/16/25 Ruben 01/30/24 documented as of this encounter
--- OUTSIDE RECORDS SUMMARY | 2025-07-06 09:59 | XMS_ITS | Encounter Summary ---
Author Organization [employer] Address 75 [facility] 7t [place] [address] Care Team Providers Care Linseed Cake Trimmer Name Role Phone Fatmata Sky MD Primary Care Provider [phone] Kenney Hyman CNP Primary Care Provider [phone] Reason for Visit * Reason Onset Date Comments Urine assessment for UTI 07/26/2024 Encounter Details Date Type Department Care Team ([facility] Contact Info) Description 07/26/2024 Telephone [facility] MEDICINE [address] [place] [address] Fatamta Sky MD [address] [place] [address] Urine assessment for UTI Social History Tobacco Use Types Packs/Day Years [...] Telephone Encounter - Rebeca Rob RN - 07/28/2024 3:01 PM EDT Verbal given to VN for UA * Telephone Encounter - Lars Aarujo - 07/26/2024 3:00 PM EDT Tc from [facility] requesting orders for a urin assessment for a possible UTI any questions please call [phone] documented in this encounter Plan of Treatment Not on file documented as of this encounter Visit Diagnoses Not on filedocumented in this encounter Additional Health Concerns Assessment Noted Time PHQ-9 Depression Total Score: 0 09/09/20 23 9:48 AM EST documented as of this encounter Care Teams Linseed Cake Trimmer Relationship Specialty Start Date End Date Fatmata Sky MD [address] [place] [address] PCP - General Family Medicine 10/05/18 05/15/25 Kenney Hyman CNP [address] [place] [address] PCP - General Family Medicine 05/16/25 Ruben 01/30/24 documented as of this encounter
--- OUTSIDE RECORDS SUMMARY | 2025-07-06 09:59 | XMS_ITS | Clinical Summary ---
Author Organization [facility] Address [address] [facility] [address] [place] [address] Phone Care Team Providers Care Lacquer Spray Booth Operator Name Role Phone Teetee Guillory MD Primary Care Provider Allergies Active Allergy Reactions Criticality Noted Date Comments Lisinopril 08/31/2023 Medications Alcohol Swabs (Alcohol Prep) 70 % pads USE DAILY DIRECTED 08/24/20 23 Active amLODIPine (NORVASC) 10 MG tablet Take 1 tablet by mouth 1 (one) time each day 08/21/20 23 Active Aspirin Adult Low Strength 81 MG EC tablet Take 1 tablet by mouth 1 (one) time each day 07/15/20 23 Active Trulicity 3 MG/0.5ML solution pen-injector Inject 1 Syringe under the skin per week 08/17/20 23 Active escitalopram (LEXAPRO) 10 MG tablet Take 1 tablet by mouth 1 (one) time each day 08/21/20 23 Active ezetimibe (ZETIA) 10 MG tablet Take 1 tablet by mouth 1 (one) time each day 06/15/20 23 Active furosemide (LASIX) 40 MG tablet Take 1 tablet by mouth 1 (one) time each day 06/15/20 23 Active Toujeo Max SoloStar 300 UNIT/ML solution pen-injector INJECT 76 UNITS SUBCUTANEOUSLY EVERY DAY 08/05/20 23 Active HumaLOG KWIKPEN 200 UNIT/ML solution pen-injector injection INJECT 34 - 38 UNITS SUBCUTANEOUSLY BEFORE ALL MEALS AND INJECT SIX UNITS SUBCUTANEOUSLY WITH BEDTIME SNACK 08/05/20 23 Active isosorbide mononitrate (IMDUR) 30 MG 24 hr tablet Take 30 mg by mouth every morning 08/21/20 23 Active levothyroxine (SYNTHROID, LEVOTHROID) 175 MCG tablet Take 175 mcg by mouth every morning 08/21/20 Active metoprolol succinate XL (TOPROL-XL) 100 MG 24 hr tablet Take 1 tablet by mouth 1 (one) time each day 06/15/20 23 Active Multiple Vitamins-Minera ls (Cerovite Senior) tablet Take 1 tablet by mouth 1 (one) time each day 07/15/20 23 Active rosuvastatin (CRESTOR) 40 MG tablet Take 1 tablet by mouth 1 (one) time each day 08/21/20 23 Active spironolactone (ALDACTONE) 25 MG tablet Take 25 mg by mouth every morning 08/21/20 23 Active Family History Medical History Relation Comments Hypertension Father Relation Status Comments Father Unknown Mother Unknown Social History Tobacco Use Types Packs/Day Years Used Date Smoking Tobacco: Never Smokeless Tobacco: Never Alcohol Use Standard Drinks/Week Comments Yes 0 (1 standard drink = 0.6 oz pure alcohol) Alcoholic Drinks/day: Occasional social drink Comments Unknown Sex and Gender Information Value Date Recorded Sex Assigned at Not on file Legal Sex Female 4:50 PM EST Gender Identity Not on file Sexual Orientation Not on file Last Filed Vital Signs Vital Sign Reading Time Taken Comments Blood Pressure 124/58 08/31/2023 3:28 PM EST Pulse 69 08/31/2023 3:28 PM EST Temperature - - Respiratory Rate - - Oxygen Saturation 97% 11/28/2019 12:00 PM EST Inhaled Oxygen Concentration - - Weight 124 kg (273 lb 12.8 oz) 08/31/2023 3:28 P M EST Height 157.5 cm (5' 2 ) 11/28/2019 12:00 PM EST Body Mass Index 50.08 11/28/2019 12:00 PM EST Plan of Treatment Health Maintenance Due Date Last Done Comments Breast Cancer Screening 1960 Colorectal Cancer Screening: Annual FOBT 2009 Colorectal Cancer Screening: Colonoscopy 2009 Colorectal Cancer Screening: Sigmoidoscopy 2009 Pneumococcal Vaccine: 50+ Years (2 of 2 - PCV) 07/21/2018 07/21/2017 Diabetes: Ophthalmology Exam 11/05/2020 Diabetes: Pedal Pulse Checked 11/05/2020 Diabetes: Sensory Foot Exam 11/05/2020 Diabetes: Visual Foot Exam 11/05/2020 Diabetes: Hemoglobin A1C 09/08/2023 06/09/2023 Influenza Vaccine (#1) 2025 1, 08/06/2020, 06/21/2019, Additional history exists Hepatitis B Vaccine Aged Out 02/26/2016, 10/23/2015, 09/24/2015 No longer eligible based on patient's age to complete this topic Pneumococcal Vaccine: Peds (0 to 5 Years) and At-Risk Patients (6 to 49 Years) Discontinued 07/21/2017 Insurance [facility] Medicare Care Teams Lacquer Spray Booth Operator Relationship Specialty Start Date End Date Teetee Guillory MD [address] [place] [address] PCP - General Internal Medicine 07/01/23
--- OUTSIDE RECORDS SUMMARY | 2025-07-06 09:59 | XMS_ITS | Encounter Summary ---
Author Organization [employer] Address [address] [place] [address] 7 [place] [address] Care Team Providers Care Instrument Technologist Name Role Phone Fatmata Sky MD Primary Care Provider [phone] Kenney Hyman CNP Primary Care Provider [phone] Reason for Visit * Reason Comments Med Refill Encounter Details Date Type Department Care Team ([facility] st Contact Info) Description 10/15/2022 Refill [facility] MEDICINE [address] [place], [place] [phone] Fatmata Sky MD [address] [place], [place] [phone] Acquired hypothyroidism (Primary Dx); Type 2 diabetes mellitus with hyperglycemia (CMS/HCC); Pure hypercholesterolemia; Essential hypertension; Seasonal allergies Social History Tobacco Use Types [...] of this encounter Visit Diagnoses Diagnosis Acquired hypothyroidism- Primary Unspecified hypothyroidism Type 2 diabetes mellitus with hyperglycemia (HCC) Pure hypercholesterolemia Essential hypertension Unspecified essential hypertension Seasonal allergies Allergic rhinitis, cause unspecified documented in this encounter Care Teams Instrument Technologist Relationship Specialty Start Date End Date Fatmata Sky MD 230 [place], [place] [phone] PCP - General Family Medicine 10/05/18 05/15/25 Kenney Hyman CNP [address] [place] [address] PCP - General Family Medicine 05/16/25 Ruben 01/30/24 documented as of this encounter
== END ==
LOC: HO.CARD 09:11
PROVIDERS: PCP Student in an Organized Health Care Education/Training Program; Visit Provider Internal Medicine Cardiovascular Disease
DX: I35.0 Nonrheumatic aortic (valve) stenosis (principal)
CPT/HCPCS: 93306; Q9957

== ENCOUNTER → 2025-07-06 09:17 | Outpatient (BNV) | payer MEDICARE, SELFPAY | PROVIDERS: PCP Student in an Organized Health Care Education/Training Program; Visit Provider Internal Medicine | DX: I27.20 Pulmonary hypertension, unspecified (principal); I42.2 Other hypertrophic cardiomyopathy; I35.0 Nonrheumatic aortic (valve) stenosis; I34.0 Nonrheumatic mitral (valve) insufficiency | CPT/HCPCS: 93306 ==

== ENCOUNTER 2025-09-29 13:48 | Outpatient (AMB) | payer MEDICARE, SELFPAY ==
--- OUTSIDE RECORDS SUMMARY | 2025-09-29 13:52 | XMS_ITS | Encounter Summary ---
Author Organization [employer] Address [address] [address] Care Team Providers Care Polls Or Surveys Interviewer Name Role Phone Fatmata Sky MD Primary Care Provider [phone] Kenney Hyman CNP Primary Care Provider [phone] Reason for Visit * Reason Comments Med Refill Encounter Details Date Type Department Care Team ([facility] st Contact Info) Description 02/17/2023 Refill [facility] MEDICINE [address] [place], [place] [phone] Teetee Guillory MD [address] [place] [phone] Pure hypercholesterolemia; Essential hypertension Social History Tobacco [...] hypertension documented in this encounter Care Teams Polls Or Surveys Interviewer Relationship Specialty Start Date End Date Fatmata Sky MD [address] [place] [address] PCP - General Family Medicine 10/05/18 05/15/25 Kenney Hyman CNP [address] [place] [address] PCP - General Family Medicine 05/16/25 Ruben 01/30/24 documented as of this encounter
--- OUTSIDE RECORDS SUMMARY | 2025-09-29 13:52 | XMS_ITS | Encounter Summary ---
Author Organization [employer] Address 75 [facility] 7t [place] [address] Care Team Providers Care Chief Gauger Name Role Phone Fatmata Sky MD Primary Care Provider [phone] Kenney Hyman CNP Primary Care Provider [phone] Reason for Visit * Reason Onset Date Comments Urine assessment for UTI 07/26/2024 Encounter Details Date Type Department Care Team ([facility] st Contact Info) Description 07/26/2024 Telephone [facility] MEDICINE [address] [place] [address] Fatmata Sky MD [address] [place] [address] Urine assessment for UTI Social History Tobacco [...] for UA * Telephone Encounter - Lars Araujo - 07/26/2024 3:00 PM EDT Tc from [facility] requesting orders for a urin assessment for a possible UTI any questions please call [phone] documented in this encounter Plan of Treatment Not on file documented as of this encounter Visit Diagnoses Not on filedocumented in this encounter Additional Health Concerns Assessment Noted Time PHQ-9 Depression Total Score: 0 09/09/20 23 9:48 AM EST documented as of this encounter Care Teams Chief Gauger Relationship Specialty Start Date End Date Fatmata Sky MD [address] [place] [address] PCP - General Family Medicine 10/05/18 05/15/25 Kenney Hyman CNP [address] [place] [address] PCP - General Family Medicine 05/16/25 Ruben 01/30/24 documented as of this encounter
--- OUTSIDE RECORDS SUMMARY | 2025-09-29 13:52 | XMS_ITS | Encounter Summary ---
Author Organization [employer] Address 75 [facility] 7t [place] [address] Care Team Providers Care Patient Resource Coordinator Name Role Phone Fatmata Sky MD Primary Care Provider [phone] Kenney Hyman CNP Primary Care Provider [phone] Reason for Visit * Reason Onset Date Comments Verbal order 01/29/2024 Encounter Details Date Type Department Care Team ([facility] Contact Info) Description 01/29/2024 Telephone [facility] MED & PEDS [address] [place] [address] Fatmata Sky MD [address] [place] [address] Verbal order Social History Tobacco Use Types [...] - 01/29/2024 2:58 PM EDT Jerry from [facility] with care tenders requesting a verbal order to start pt in PT ,OT, and nursing . Best contact # [phone]. documented in this encounter Plan of Treatment Not on file documented as of this encounter Visit Diagnoses Not on filedocumented in this encounter Additional Health Concerns Assessment Noted Time PHQ-9 Depression Total Score: 0 09/09/20 23 9:48 AM EST documented as of this encounter Care Teams Patient Resource Coordinator Relationship Specialty Start Date End Date Fatmata Sky MD [address] [place] [address] PCP - General Family Medicine 10/05/18 05/15/25 Kenney Hyman CNP [address] [place] [address] PCP - General Family Medicine 05/16/25 Ruben 01/30/24 documented as of this encounter
--- OUTSIDE RECORDS SUMMARY | 2025-09-29 13:52 | XMS_ITS | Encounter Summary ---
Author Organization [employer] Address 75 [facility] 7t [place] [address] Care Team Providers Care Foot Orthopedist Name Role Phone Fatmata Sky MD Primary Care Provider [phone] Kenney Hyman CNP Primary Care Provider [phone] Encounter Details Date Type Department Care Team ([facility] st Contact Info) Description 07/07/2024 Orders Only [facility] MED & PEDS [address] [place], [place] [phone] Teetee Guillory MD 505 [place] [address] Nausea (Primary Dx) Social History Tobacco Use [...] documented as of this encounter Care Teams Foot Orthopedist Relationship Specialty Start Date End Date Fatmata Sky MD [address] [place] [address] PCP - General Family Medicine 10/05/18 05/15/25 Kenney Hyman CNP [address] [place] [address] PCP - General Family Medicine 05/16/25 [facility] 01/30/24 documented as of this encounter
--- OUTSIDE RECORDS SUMMARY | 2025-09-29 13:52 | XMS_ITS | Clinical Summary ---
Author Organization [facility] Address [address] [facility] [address] [place] [address] Phone Care Team Providers Care Boiler Operator Name Role Phone Teetee Guillory MD [...] (6 to 49 Years) Discontinued 07/21/2017 Insurance [facility] Medicare Care Teams Boiler Operator Relationship Specialty Start Date End Date Teetee Guillory MD [address] [place] [address] PCP - General Internal Medicine 07/01/23
--- OUTSIDE RECORDS SUMMARY | 2025-09-29 13:52 | XMS_ITS | Encounter Summary ---
Author Organization [employer] Address [address] [facility] 7t [place] [address] Care Team Providers Care Associate Scientist Name Role Phone Fatmata Sky MD Primary Care Provider [phone] Kenney Hyman CNP Primary Care Provider [phone] Reason for Visit * Reason Onset Date Comments Nurse Triage 07/07/2024 Encounter Details Date Type Department Care Team ([facility] st Contact Info) Description 07/07/2024 Telephone [facility] [address] [place] [address] Fatmata Sky MD [address] [place] [address] Nurse Triage Social History Tobacco Use Types [...] calling to report hand swelling Patient speaks [place] Islander. Advised triage nurse will call patient back. documented in this encounter Plan of Treatment Not on file documented as of this encounter Visit Diagnoses Not on filedocumented in this encounter Additional Health Concerns Assessment Noted Time PHQ-9 Depression Total Score: 0 09/09/20 23 9:48 AM EST documented as of this encounter Care Teams Associate Scientist Relationship Specialty Start Date End Date Fatmata Sky MD [address] [place] [address] PCP - General Family Medicine 10/05/18 05/15/25 Kenney Hyman CNP [address] [place] [address] PCP - General Family Medicine 05/16/25 Ruben 01/30/24 documented as of this encounter
--- OUTSIDE RECORDS SUMMARY | 2025-09-29 13:52 | XMS_ITS | Encounter Summary ---
Author Organization [employer] Address [address] [place] [address] 7 [place] [address] Care Team Providers Care Histopathology Technician Name Role Phone Fatmata Sky MD Primary Care Provider [phone] Kenney Hyman CNP Primary Care Provider [phone] Encounter Details Date Type Department Care Team (Late st Contact Info) Description 02/17/2023 Orders Only [facility] CHC MED & PEDS [address] [place] [address] Chari Her LPN Social History Tobacco Use [...] on filedocumented in this encounter Care Teams Histopathology Technician Relationship Specialty Start Date End Date Fatmata Sky MD [address] [place] [address] PCP - General Family Medicine 10/05/18 05/15/25 Kenney Hyman CNP [address] [place] [address] PCP - General Family Medicine 05/16/25 [facility] 01/30/24 documented as of this encounter
--- OUTSIDE RECORDS SUMMARY | 2025-09-29 13:52 | XMS_ITS | Encounter Summary ---
Author Organization [employer] Address [address] [facility] 7t [place] [address] Care Team Providers Care Brassiere Cup Mold Cutter Name Role Phone Fatmata Sky MD Primary Care Provider [phone] Kenney Hyman CNP Primary Care Provider [phone] Reason for Visit * Reason Onset Date Comments Call Back Request 11/06/2023 Encounter Details Date Type Department Care Team ([facility] st Contact Info) Description 11/06/2023 Telephone [facility] MEDICINE [address] [place], [place] [phone] Fatmata Sky MD [address] [place], [place] [phone] Call Back Request Social History Tobacco Use [...] her own decisions * Telephone Encounter - Brenda Paige - 11/06/2023 11:38 AM EST Tc from Krissy with Adult Protective Services Krissy have questions and concerns with the pt, they wanted to know if the pt can make her own decision, if have mental health issues and if the PCP have any other concern. Krissy is requesting a call back to Vaishali [phone] Ext [phone] documented in this encounter Plan of Treatment Not on file documented as of this encounter Visit Diagnoses Not on filedocumented in this encounter Additional Health Concerns Assessment Noted Time PHQ-9 Depression Total Score: 0 09/09/20 23 9:48 AM EST documented as of this encounter Care Teams Brassiere Cup Mold Cutter Relationship Specialty Start Date End Date Fatmata Sky MD [address] [place] [address] PCP - General Family Medicine 10/05/18 05/15/25 Kenney Hyman CNP [address] [facility] [place] [address] PCP - General Family Medicine 05/16/25 Ruben 01/30/24 documented as of this encounter
--- OUTSIDE RECORDS SUMMARY | 2025-09-29 13:52 | XMS_ITS | Encounter Summary ---
Author Organization [employer] Address [address] [place] [address] 7t [place] [address] Care Team Providers Care Synchro Assembler Name Role Phone Fatmata Sky MD Primary Care Provider [phone] Kenney Hyman CNP Primary Care Provider [phone] Encounter Details Date Type Department Care Team (Late st Contact Info) Description 03/13/2023 Orders Only [facility] CHC MED & PEDS [address] [place] [address] Nalini Kovacs LPN Social History Tobacco Use [...] on filedocumented in this encounter Care Teams Synchro Assembler Relationship Specialty Start Date End Date Fatmata Sky MD [address] [place] [address] PCP - General Family Medicine 10/05/18 05/15/25 Kenney Hyman CNP [address] [place] [address] PCP - General Family Medicine 05/16/25 [facility] 01/30/24 documented as of this encounter
--- OUTSIDE RECORDS SUMMARY | 2025-09-29 13:52 | XMS_ITS | Encounter Summary ---
Author Organization [employer] Address [address] [place] [address] 7 [place] [address] Care Team Providers Care Pot Fluxer Name Role Phone Fatmata Sky MD Primary Care Provider [phone] Kenney Hyman CNP Primary Care Provider [phone] Reason for Visit * Reason Comments Med Refill Encounter Details Date Type Department Care Team ([facility] Contact Info) Description 12/10/2022 Refill [facility] CHC MED & PEDS [address] [place], [place] [phone] Fatmata Sky MD [address] [place] [address] Type 2 diabetes mellitus without complication, with long-term current use of insulin ([facility]) Social History Tobacco Use Types Packs/Day [...] HOSPITAL) documented in this encounter Care Teams Pot Fluxer Relationship Specialty Start Date End Date Fatmata Sky MD [address] [place] [address] PCP - General Family Medicine 10/05/18 05/15/25 Kenney Hyman CNP 230 [place] [address] PCP - General Family Medicine 05/16/25 Ruben 01/30/24 documented as of this encounter
--- OUTSIDE RECORDS SUMMARY | 2025-09-29 13:52 | XMS_ITS | Clinical Summary ---
Author Organization [employer] Address 75 [facility] 7t [place] [address] Care Team Providers Care Caravan Park And Camping Ground Manager Name Role Phone Kenney Hyman CNP Primary Care Provider [phone] Allergies Active Allergy Reactions Criticality Noted Date [...] FIT DNA/Cologuard 1960 FIT 1960 FOBT 1960 Sigmoidoscopy 1960 Eye Exam 1970 Alcohol/Substance Use Screening 1972 Hepatitis C Screening 1978 Pap Smear 1981 Cervical Cancer Screening 1990 HPV/Cotest 1990 RSV Patients and Patients Aged 60 years or older (1 - Risk 50-74 years 1-dose series) 2010 Pneumococcal Vaccine: 50+ Years (2 of 2 - PCV) 07/21/2018 07/21/2017 Mammogram 10/15/2020 10/15/2018 Diabetes: Urine Protein Screening 02/25/2023 02/25/2022, 02/25/2022, 11/30/2019 Lipid Panel 02/25/2023 02/25/2022 Diabetes: Hemoglobin A1C 12/09/2023 023, 06/09/2023, 02/25/2022, Additional history exists SDOH Screening 05/27/2024 05/27/2023 Depression Screening 09/09/2024 09/09/2023, 09/09/20 Diabetes: Foot Exam 09/09/2024 09/09/2023, 09/09/2023, 09/09/2023, Additional history exists Tobacco Screening 09/09/2024 09/09/2023 COVID-19 Vaccine ( season) 2025 07/09/2021, 12/11/2020, 11/19/2020 Influenza Vaccine (#1) 2025 , 08/01/2021, 08/06/2020, Additional history exists DTaP/Tdap/Td Vaccines [...] complication, without long-term current use of insulin ([facility]) ZZZ HISTORICAL LIPID PANEL Routine 02/25/2022 12:47 PM EDT [facility] HISTORICAL MICROALBUMIN/CREATIN INE RATIO, RANDOM URINE Routine 02/25/2022 12:44 PM EDT BI MAMMOGRAM SCREENING BILATERAL Routine 10/15/2018 3:54 PM EST from Last 3 Months or Most Recently Relevant to Health Maintenance Results * (ABNORMAL) POCT A1C (09/09/2023 9:46 AM EST) Hemoglobin A1C 7.4(A) 4.0 - 6.0 % [...] [facility] Comment: NOTE: For -[place] individuals, multiply the result by 1.210. Chronic [...] Historical Provider HISTORICAL/NON ORDERABLE LABS Final Result [facility] [address] [place] [address], [place] * MICROALBUMIN/CREATININE RATIO, RANDOM URINE (02/25/2022 12:44 PM EDT) Creatinine Urine 116.16 mg/dL [facility] Microalbum/Creati nine Ratio Ur 243.6 ug/mg cr [facility] Comment: Albumin/Creatinine Ratio Reference Ranges: Normal: < 30 ug/mg creatinine Microalbuminuria: 30 - 300 ug/mg creatinine Clinical Albuminuria: > 300 ug/mg creatinine Microalbumin Urine 283.0 mg/L [facility] 02/25/2022 12:4 4 PM EDT us Historical Provider HISTORICAL/NON ORDERABLE LABS Final Result Performing Organization Address City/State/[facility] Co de Phone Number [facility] [address] * DIGITAL BILATERAL SCREEN 1 (10/15/2018 3:54 PM EST) Anatomical Region Laterality Modality Breast Bilateral Mammography 10/15/2018 3:54 PM EST Narrative 10/15/2018 3:55 PM EST Refer to the Notes tab for result details [facility] Procedure: DIGITAL BILATERAL SCREEN 1 Procedure Note Provider, MD Rubén - 12/27/2022 Refer to the Notes tab for result details [facility] Procedure: DIGITAL BILATERAL SCREEN 1 us Fatmata Sky MD IMG BI PROCEDURES Final Result from Last 3 Months or Most Recently Relevant to Health Maintenance Insurance [facility] STANDARD AARP MEDICARE ADVANTAGE HMO Care Teams Caravan Park And Camping Ground Manager Relationship Specialty Start Date End Date Kenney Hyman CNP PCP - General Family Medicine 05/16/25 Ruben 01/30/24
--- OUTSIDE RECORDS SUMMARY | 2025-09-29 13:52 | XMS_ITS | Encounter Summary ---
Author Organization [employer] Address [address] [place] [address] 7t [place] [address] Care Team Providers Care Boiler Room Helper Name Role Phone Fatmata Sky MD Primary Care Provider [phone] Kenney Hyman CNP Primary Care Provider [phone] Encounter Details Date Type Department Care Team (Late st Contact Info) Description 10/16/2022 Orders Only [facility] CHC MED & PEDS [address] [place] [address] Nalini Kovacs LPN Social History Tobacco Use [...] on filedocumented in this encounter Care Teams Boiler Room Helper Relationship Specialty Start Date End Date Fatmata Sky MD [address] [place] [address] PCP - General Family Medicine 10/05/18 05/15/25 Kenney Hyman CNP [address] [place] [address] PCP - General Family Medicine 05/16/25 [facility] 01/30/24 documented as of this encounter
--- OUTSIDE RECORDS SUMMARY | 2025-09-29 13:52 | XMS_ITS | Encounter Summary ---
Author Organization [employer] Address [address] [facility] 7t [place] [address] Care Team Providers Care Supervisor Stripping Name Role Phone Fatmata Sky MD Primary Care Provider Kenney Hyman CNP Primary Care Provider [phone] Reason for Visit * Reason Onset Date Comments ER Follow-up 11/27/2023 Encounter Details Date Type Department Care Team ([facility] st Contact Info) Description 11/27/2023 Telephone [facility] MEDICINE [address] [place] [address] Fatmata Sky MD [address] [place] [address] ER Follow-up Social History Tobacco Use Types [...] your housing situation today? I have jaesisi asntacruz 07/20/[address] you li [...] visit on: Date: 11/25/23 [place] [facility] Seen for: High Blood sugar, High blood pressure Patient advised will forward to team nurse for follow up documented in this encounter Plan of Treatment Not on file documented as of this encounter Visit Diagnoses Not on filedocumented in this encounter Additional Health Concerns Assessment Noted Time PHQ-9 Depression Total Score: 0 09/09/20 9:48 AM EST documented as of this encounter Care Teams Supervisor Stripping Relationship Specialty Start Date End Date Fatmata Sky MD [address] [place] [address] PCP - General Family Medicine 10/05/18 05/15/25 Kenney Hyman CNP 230 [facility] [place] [address] PCP - General Family Medicine 05/16/25 Ruben 01/30/24 documented as of this encounter
--- OUTSIDE RECORDS SUMMARY | 2025-09-29 13:52 | XMS_ITS | Encounter Summary ---
Author Organization [employer] Address [address] [facility] 7t [place] [address] Care Team Providers Care Saw Superintendent Name Role Phone Fatmata Sky MD Primary Care Provider [phone] Kenney Hyman CNP Primary Care Provider [phone] Reason for Visit * Reason Onset Date Comments Verbal Orders 02/01/2024 Encounter Details Date Type Department Care Team ([facility] st Contact Info) Description 02/01/2024 Telephone [facility] MEDICINE [address] [place] [address] Fatmata Sky MD [address] [place], [place] [phone] Verbal Orders Social History Tobacco Use Types [...] - 02/01/2024 2:05 PM EDT Tc to [facility] to confirm order details and request. Told that Monet Gabriel was on another line andwould call back. * Telephone Encounter - Lars Araujo - 02/01/2024 1:43 PM EDT Tc from Monet Gabriel at [facility] requesting a verbal order for nursing care [...] documented as of this encounter Care Teams Saw Superintendent Relationship Specialty Start Date End Date Fatmata Sky MD [address] [place] [address] PCP - General Family Medicine 10/05/18 05/15/25 Kenney Hyman CNP [address] [place] [address] PCP - General Family Medicine 05/16/25 [facility] documented as of this encounter
--- OUTSIDE RECORDS SUMMARY | 2025-09-29 13:52 | XMS_ITS | Encounter Summary ---
Author Organization [employer] Address [address] [place] [address] 7 [place] [address] Care Team Providers Care A Auxiliary Name Role Phone Fatmata Sky MD Primary Care Provider [phone] Kenney Hyman CNP Primary Care Provider [phone] Reason for Visit * Reason Comments Med Refill Encounter Details Date Type Department Care Team ([facility] st Contact Info) Description 10/15/2022 Refill [facility] MEDICINE [address] [place], [place] [phone] Fatmata Sky MD [address] [place], [place] [phone] Acquired hypothyroidism (Primary Dx); Type 2 diabetes [...] unspecified documented in this encounter Care Teams A Auxiliary Relationship Specialty Start Date End Date Fatmata Sky MD [address] [place], [place] [phone] PCP - General Family Medicine 10/05/18 05/15/25 Kenney Hyman CNP [address] [place] [address] PCP - General Family Medicine 05/16/25 Ruben 01/30/24 documented as of this encounter
--- OUTSIDE RECORDS SUMMARY | 2025-09-29 13:52 | XMS_ITS | Encounter Summary ---
Author Organization [email or web address] Address [address] [place] [address] Care Team Providers Care Machine Operations Supervisor Name Role Phone Fatmata Sky MD Primary Care Provider [phone] Kenney Hyman CNP Primary Care Provider [phone] Reason for Visit * Reason Comments Med Refill Encounter Details Date Type Department Care Team ([facility] st Contact Info) Description 02/17/2023 Refill [facility] MEDICINE [address] [place] [address] Teetee Guillory MD [address] [place] [phone] Seasonal allergies Social History Tobacco Use Types [...] unspecified documented in this encounter Care Teams Machine Operations Supervisor Relationship Specialty Start Date End Date Fatmata Sky MD [address] [place] [address] PCP - General Family Medicine 10/05/18 05/15/25 Kenney Hyman CNP [address] [place] [address] PCP - General Family Medicine 05/16/25 Ruben 01/30/24 documented as of this encounter
--- OUTSIDE RECORDS SUMMARY | 2025-09-29 13:52 | XMS_ITS | Encounter Summary ---
Author Organization [employer] Address [address] [place] [address] Care Team Providers Care Ammonia Still Operator Name Role Phone Fatmata Sky MD Primary Care Provider [phone] Kenney Hyman CNP Primary Care Provider [phone] Reason for Visit * Reason Comments Med Refill Encounter Details Date Type Department Care Team (Late st Contact Info) Description 06/09/2023 Refill [facility] MEDICINE [address] [place], [place] [phone] Teetee Guillory MD [address] [place] [phone] Acquired hypothyroidism Social History Tobacco Use Types [...] hypothyroidism documented in this encounter Care Teams Ammonia Still Operator Relationship Specialty Start Date End Date Fatmata Sky MD [address] [place] [address] PCP - General Family Medicine 10/05/18 05/15/25 Kenney Hyman CNP [address] [place] [address] PCP - General Family Medicine 05/16/25 Ruben 01/30/24 documented as of this encounter
--- OUTSIDE RECORDS SUMMARY | 2025-09-29 13:52 | XMS_ITS | Encounter Summary ---
Author Organization [employer] Address [address] [facility] 7t [place] [address] Care Team Providers Care Filter Tank Tender Helper Name Role Phone Fatmata Sky MD Primary Care Provider [phone] Kenney Hyman CNP Primary Care Provider [phone] Reason for Visit * Reason Onset Date Comments Verbal Orders 03/29/2024 Encounter Details Date Type Department Care Team ([facility] st Contact Info) Description 03/29/2024 Telephone [facility] MEDICINE [address] [place] [address] Fatmata Sky MD [address] [place], [place] [phone] Verbal Orders Social History Tobacco Use Types [...] below to Christiana NARAYAN with caretenders on [phone]. Spoke with Christiana NARAYAN and inform that PCP agreed to verbal orders for nursing service. Christiana NARAYAN states that patient was hospitalized at [facility] from 03/22-03/24 for hyperglycemia. [...] orders for nursing services. Please contact at [phone] documented in this encounter Plan of Treatment Not on file documented as of this encounter Visit Diagnoses Not on filedocumented in this encounter Additional Health Concerns Assessment Noted Time PHQ-9 Depression Total Score: 0 09/09/20 23 9:48 AM EST documented as of this encounter Care Teams Filter Tank Tender Helper Relationship Specialty Start Date End Date Fatmata Sky MD [address] [place] [address] PCP - General Family Medicine 10/05/18 05/15/25 Kenney Hyman CNP [address] [place] [address] PCP - General Family Medicine 05/16/25 [facility] documented as of this encounter
--- OUTSIDE RECORDS SUMMARY | 2025-09-29 13:52 | XMS_ITS | Encounter Summary ---
Author Organization [employer] Address [address] [place] [address] 7 [place] [address] Care Team Providers Care Signalling And Communications Engineer Name Role Phone Fatmata Sky MD Primary Care Provider [phone] Kenney Hyman CNP Primary Care Provider [phone] Reason for Visit * Reason Comments Med Refill Encounter Details Date Type Department Care Team ([facility] st Contact Info) Description 11/13/2022 Refill [facility] MEDICINE [address] [place], [place] [phone] Fatmata Sky MD [address] [place] [phone] Type 2 diabetes mellitus with hyperglycemia (CMS/HCC) [...] (HCC) documented in this encounter Care Teams Signalling And Communications Engineer Relationship Specialty Start Date End Date Fatmata Sky MD [address] [place] [address] PCP - General Family Medicine 10/05/18 05/15/25 Kenney Hyman CNP 230 [facility] [place] [address] PCP - General Family Medicine 05/16/25 Ruben 01/30/24 documented as of this encounter
[2025-09-29 14:09] VITALS: BP 122/60; PULSE 58
--- NOTE | 2025-09-29 14:09 | A.OFFVIS_ITS ---
Vital Signs 09/29/25 14:09 Height 5 ft 2 in BMI Reason not done Palliative Care Patient BP 122/60 Blood Pressure Location Rt brachial Position Sitting Pulse 58 Pulse Source Pulse Oximeter Intake Visit Reasons: Follow up after testing (NS) Assistant In Nursing Required: No Accompanied by: Self / Same As Patient Allergies Seasonal Allergies Allergy (Verified 09/29/25 14:13) Itchy Eyes lisinopril (LISINOPRIL) Adverse Reaction (Unknown, Verified 09/29/25 14:13) ITCHY EYES HPI Comments Details: This is a 65-year-old female patient coming in for a follow-up visit in her wheelchair. Patient with a history of hypertension, hyperlipidemia, diabetes, HFpEF and and aortic stenosis. Patient had not been seen in the office for almost 2 years and therefore recently underwent an echocardiogram to assess the aortic stenosis. Patient denies any cardiac symptoms of exertional chest pain, shortness of breath, palpitations, dizziness, orthopnea, PND, leg edema, presy ncope or syncope. However, due to her sedentary lifestyle from right hip discomfort and limited functional capacity, difficult to assess and therefore patient is brought in today for further discussion of aortic valve replacement. Patient is reporting compliance with all medications. [facility] Medical History (Updated 09/29/25 @ 16:15 by Dario Jerry NP) Abnormal nuclear stress test Diabetes type 2, uncontrolled Dyslipidemia, goal LDL below 100 Essential hypertension (HFpEF) heart failure with preserved ejection fraction Hypothyroidism Aortic stenosis COVID-19 vaccine series completed Type 2 diabetes mellitus with polyneuropathy CKD (chronic kidney disease) Hypokalemia Hypomagnesemia Acute on chronic heart failure with preserved ejection fraction (HFpEF) Anasarca Congestive heart failure Kidney disease Syncope CHF (congestive heart failure) Diabetes mellitus with hyperglycemia Type 2 diabetes mellitus with diabetic nephropathy Other specified hypothyroidism Autoimmune thyroiditis Abnormal dexamethasone suppression test Morbid obesity due to excess calories BMI 45.0-49.9, adult Surgical History History of History of removal of calculus of renal pelvis through percutaneous nephrostomy Family History Family/Other Diabetes Mother History of high blood pressure Father History of high blood pressure Maternal Grandmother History of high blood pressure Social History Household Members: Spouse Housing: Homeless Are you a primary health care analyst to a significant other at home: No Do you presently have visiting nurse or other home services: Yes Alcohol intake: current Alcohol intake frequency: a few times a week Alcohol type: wine Comment: refusing socks. Patient Tobacco Use Status: Never used Tobacco service: No Current occupational status: disabled Review of Systems Const Denies daytime sleepiness, Denies difficulty sleeping, Denies snoring, Denies stops breathing during sleep and Denies weakness Card Denies chest pain, Denies rapid heart rate, Denies irregular heart rhythm, Denies claudication, Denies leg edema, Denies lightheadedness, Denies palpitations, Denies dyspnea, Denies dyspnea on exertion, Denies orthopnea, Denies paroxysmal nocturnal dyspnea and Denies slow heart rate Resp Denies cough, Denies dyspnea, Denies dyspnea on exertion and Denies snoring GI Reports no additional complaints, Denies hematochezia, Denies change in stool character and Denies dyspepsia Musc Denies abnormal gait, Denies muscle weakness and Denies numbness Neuro Denies abnormal gait, Denies numbness and Denies weakness Endo Denies palpitations Physical Exam Vital Signs: Last Vital Signs Pulse 58 09/29/25 14:09 BP 122/60 09/29/25 14:09 Const General: cooperative, healthy appearing, comfortable and no acute distress Orientation/consciousness: patient oriented x3 Limitations: wheelchair HEENT Head: Yes normal to inspection Neck Neck: Yes normal visual inspection, Yes trachea midline and Yes supple Chest Chest palpation & inspection: normal inspection of the chest Resp Effort & Inspection: normal respiratory effort Auscultation: clear to auscultation bilaterally, no crackles, no rales, no rhonchi and no wheezes Cardio Jugular venous distension: no JVD Palpation: normal PMI Rate: regular rate Rhythm: regular rhythm Heart sounds: S1 normal heart sound present, S2 normal heart sound present, no click, no gallops, Murmur heart sound present systolic and no rubs Peripheral pulses: Peripheral pulses 2+ throughout GI Inspection: Yes normal to inspection Palpation (GI): Soft to palpation Auscultation: normal bowel sounds Skin General skin exam: no rashes or lesions noted Neuro General: patient oriented x3 Extrem General: Yes normal to inspection, No no pedal edema and No calf tenderness Psych Appearance: grossly normal Mental Status: mental status grossly normal Speech and movement: Normal speech and movement present Assessment & Plan Assessment & Plan (1) Aortic stenosis: Comment: Aortic stenosis which had versus moderate. No interventions required and not reason for heart failure. Code(s): I35.0 - Nonrheumatic aortic (valve) stenosis Category: Medical Plan: 07/06/2025-echo study showed a normal LV systolic function with the ejection fraction at 60%, grade 2 diastolic dysfunction, mitral annular calcification w ith a calcified mitral stenosis, moderate pulmonary hypertension, and severe aortic valve stenosis with mean gradient at 29 mmHg. Given her limited exercise capacity, it is difficult to assess her symptoms. Discussed in detail about aortic valve replacement as soon as step and patient is agreeable to this plan. First we will send patient for cardiac catheterization with Dr. Anthony and patient will follow up with Dr. Anthony for a TAVR consult. The procedure along with its indications, risks and benefits was thoroughly discussed with the patient. Patient verbalizes understanding. Continue aspirin therapy. (2) (HFpEF) heart failure with preserved ejection fraction: Code(s): I50.30 - Unspecified diastolic (congestive) heart failure Category: Medical Qualifiers: Heart failure chronicity: chronic Qualified Code(s): I50.32 - Chronic diastolic (congestive) heart failure Plan: Clinically stable and euvolemic. Continue Lasix, isosorbide, metoprolol, and spironolactone therapy. Signs and symptoms of heart failure reviewed with the patient. Advised on low-salt diet, daily weight monitoring, compression socks and leg elevation as needed. (3) Essential hypertension: Code(s): I10 - Essential (primary) hypertension Category: Medical Plan: Blood pressure today is well-controlled. Continue current regimen with a blood pressure goal less than 130/80. Advised on low-salt diet. (4) Dyslipidemia, goal LDL below 100: Code(s): E78.5 - Hyperlipidemia, unspecified Category: Medical Plan: Continue statin and Zetia therapy. (5) Type 2 diabetes mellitus with diabetic nephropathy: Code(s): E11.21 - Type 2 diabetes mellitus with diabetic nephropathy Category: Medical Qualifiers: Diabetes mellitus intermediate card tender insulin use: with intermediate card tender use Qualified Code(s): E11.21 - Type 2 diabetes mellitus with diabetic nephropathy; Z79.4 - FDC (current) use of insulin Plan: Advised to on an A1c goal less than 7%. Followed by PCP. Advised on heart healthy diet, regular exercise as tolerated, med compliance, and aggressive management of vascular risk factors. Follow up after cardiac catheterization with Dr. Anthony for TAVR consult. In the interim, patient will call the office with any concerns or change in symptoms. This note was generated using voice recognition software. While every effort has been made to ensure accuracy and proper handbag finisher, there may be occasional errors that could affect the content or meaning of the described symptoms. Orders: Orders Cardiac Cath LT Diagnostic Today I35.0 - Nonrheumatic aortic (valve) stenosis Basic Metabolic Panel Today I35.0 - Nonrheumatic aortic (valve) stenosis Complete Blood Count no Diff Today I35.0 - Nonrheumatic aortic (valve) stenosis Prothrombin Time INR Today I35.0 - Nonrheumatic aortic (valve) stenosis Coding Level of Care Code Est Pt Level 4 (51476) Add On Problem Visit Only Diagnoses Aortic stenosis I35.0 Chronic heart failure with preserved ejection fraction I50.32 Heart failure chronicity: chronic Essential hypertension I10 Dyslipidemia, goal LDL below 100 E78.5 Type 2 diabetes mellitus with diabetic nephropathy, with long-term current use of insulin E11.21; Z79.4 Diabetes mellitus intermediate card tender insulin use: with intermediate card tender use Time Spent (min) 32 Comment Time spent in reviewing the chart, test results, assessment, counseling and documentation.
== END 2025-09-29 14:39 | disposition home or self-care (01) ==
LOC: HO.HCS 13:49
PROVIDERS: PCP Student in an Organized Health Care Education/Training Program
DX: I35.0 Nonrheumatic aortic (valve) stenosis (principal); I50.32 Chronic diastolic (congestive) heart failure; I10 Essential (primary) hypertension; E78.5 Hyperlipidemia, unspecified; E11.21 Type 2 diabetes mellitus with diabetic nephropathy; Z79.4 Long term (current) use of insulin
CPT/HCPCS: 99214; G2211

== ENCOUNTER → 2025-09-29 13:48 | Outpatient (BNVA) | payer MEDICARE, SELFPAY | PROVIDERS: PCP Student in an Organized Health Care Education/Training Program | DX: I35.0 Nonrheumatic aortic (valve) stenosis (principal); I11.0 Hypertensive heart disease with heart failure; I50.32 Chronic diastolic (congestive) heart failure; E78.5 Hyperlipidemia, unspecified; E11.21 Type 2 diabetes mellitus with diabetic nephropathy; Z79.4 Long term (current) use of insulin; Z79.82 Long term (current) use of aspirin; Z79.899 Other long term (current) drug therapy | CPT/HCPCS: 99212 ==